=== PATIENT | male | born 1945 | race Caucasian/White ===

== ENCOUNTER → 2022-10-01 | Outpatient (REF) | payer MEDICARE, SELFPAY | LOC: OLS.ACW100 05:00 | PROVIDERS: Visit Provider Family Medicine | DX: T14.8XXA Other injury of unspecified body region, initial encounter (principal) | CPT/HCPCS: 87070; 87077; 87186; 87205 ==

== ENCOUNTER → 2022-10-18 | Outpatient (REF) | payer MEDICARE, MEDICAID, SELFPAY ==
[2022-10-18 09:35] LABS: Vitamin D,25 Hydroxy 46.4 ng/mL
== END ==
LOC: OLS.ACW100 05:00
PROVIDERS: Visit Provider Family Medicine
DX: C34.90 Malignant neoplasm of unspecified part of unspecified bronchus or lung (principal); E55.9 Vitamin D deficiency, unspecified; R13.10 Dysphagia, unspecified; R53.1 Weakness; Z79.899 Other long term (current) drug therapy
CPT/HCPCS: 36415; 82306; 84443

== ENCOUNTER → 2023-01-03 | Outpatient (REF) | payer MEDICARE, MEDICAID, SELFPAY ==
[2023-01-03 08:46] LABS: Hematocrit 34.3 % (40-54); Mean Corp Hgb Conc 32.1 g/dL (32-36); Mean Corpuscular Hgb 30.9 pg (27.0-32.0); Mean Corpuscular Volume 96.3 fL (80-94); Mean Platelet Vol. 10.8 fl (6.2-12.0); Platelet Count 324 K/mm3 (150-450); RBC Distribution Width CV 14.5 % (11.6-14.6); RBC Distribution Width SD 51.2 fl (35.1-43.9); Red Blood Count 3.56 M/mm3 (4.6-6.2); White Blood Count 7.5 K/mm3 (4.4-11.0)
[2023-01-03 09:07] LABS: ALB/GLOB Ratio 0.7 RATIO (0.9-2.4); AST(SGOT) 44 U/L (15-37); Alanine Aminotransfer ALT/SGPT 37 U/L (16-61); Albumin, Serum 2.6 g/dL (3.2-5.0); Alkaline Phosphatase 173 U/L (45-117); Anion Gap 6 (5-15); BUN 8 mg/dL (7-18); BUN/Creat Ratio 13.2 RATIO (10-20); Calcium,Total 8.6 mg/dL (8.5-10.1); Chloride 105 mmol/L (98-107); Creatinine, Serum 0.61 mg/dL (0.70-1.30); EST Glomerular Filtration Rate 137 mL/min (>60); Est Glom Filt Rate - Afr Amer 165 mL/min (>60); Ferritin 246 ng/mL (26-388); Globulin 3.7 g/dL (2.2-4.2); Glucose 177 mg/dL (74-106); Iron 46 ug/dL (65-175); Iron Binding Capacity,Total 202 ug/dL (250-450); PERCENT IRON SATURATION 22.8 % (15.0-55.0); Potassium 3.4 mmol/L (3.5-5.1); Protein, Total 6.3 g/dL (6.4-8.2); Prothrombin Time (Protime)PT. 13.5 SECONDS (11.7-14.9); Sodium Level 139 mmol/L (136-145)
[2023-01-04 15:08] LABS: ANTINUCLEAR ANTIBODIES DIRECT Negative (Negative); Anti-Mitochondrial AB <20.0 Units (0.0-20.0); Anti-Smooth Muscle ABS 11 Units (0-19); HEPATITIS B SURFACE AG Negative (Negative); Hep C Antibodies Non Reactive (Non Reactive); Hepatitis A IgM Antibody Negative (Negative); Hepatitis B Core AB IgM Negative (Negative)
== END ==
LOC: OLS.ACW100 04:00
PROVIDERS: Referring Provider Family Medicine; Visit Provider Family Medicine
DX: C34.90 Malignant neoplasm of unspecified part of unspecified bronchus or lung (principal); R13.10 Dysphagia, unspecified; R53.1 Weakness; Z79.899 Other long term (current) drug therapy; Z79.01 Long term (current) use of anticoagulants
CPT/HCPCS: 36415; 80053; 80074; 82728; 83516; 83540; 83550; 85027; 85610; 86038

== ENCOUNTER → 2023-01-05 | Outpatient (REF) | payer MEDICARE, MEDICAID, SELFPAY ==
[2023-01-13 11:08] LABS: Pancreatic Elastase, Fecal 440 (>200)
== END ==
LOC: OLS.ACW100 23:00
PROVIDERS: Visit Provider Family Medicine
DX: C34.90 Malignant neoplasm of unspecified part of unspecified bronchus or lung (principal); R13.10 Dysphagia, unspecified; R53.1 Weakness; R27.8 Other lack of coordination; Z79.899 Other long term (current) drug therapy; Z79.01 Long term (current) use of anticoagulants
CPT/HCPCS: 82653

== ENCOUNTER → 2023-01-13 | Outpatient (REF) | payer MEDICARE, MEDICAID, SELFPAY ==
[2023-01-13 09:32] LABS: Anion Gap 6 (5-15); BUN 6 mg/dL (7-18); BUN/Creat Ratio 12.2 RATIO (10-20); Calcium,Total 8.5 mg/dL (8.5-10.1); Chloride 106 mmol/L (98-107); Creatinine, Serum 0.49 mg/dL (0.70-1.30); EST Glomerular Filtration Rate 174 mL/min (>60); Est Glom Filt Rate - Afr Amer 211 mL/min (>60); Glucose 120 mg/dL (74-106); Potassium 3.7 mmol/L (3.5-5.1); Sodium Level 139 mmol/L (136-145)
== END ==
LOC: OLS.ACW100 04:00
PROVIDERS: Referring Provider Family Medicine; Visit Provider Family Medicine
DX: C34.90 Malignant neoplasm of unspecified part of unspecified bronchus or lung (principal); R13.10 Dysphagia, unspecified; R53.1 Weakness; R27.8 Other lack of coordination
CPT/HCPCS: 36415; 80048

== ENCOUNTER → 2023-01-17 | Outpatient (REF) | payer MEDICARE, MEDICAID, SELFPAY ==
[2023-01-17 10:04] LABS: Anion Gap 5 (5-15); BUN 6 mg/dL (7-18); Calcium,Total 8.9 mg/dL (8.5-10.1); Chloride 102 mmol/L (98-107); EST Glomerular Filtration Rate 139 mL/min (>60); Est Glom Filt Rate - Afr Amer 168 mL/min (>60); Glucose 108 mg/dL (74-106); Potassium 3.9 mmol/L (3.5-5.1); Sodium Level 136 mmol/L (136-145)
[2023-01-20 06:11] LABS: Uric Acid 4.1 mg/dL (3.5-7.2)
== END ==
LOC: OLS.ACW100 05:00
PROVIDERS: Visit Provider Family Medicine
DX: M10.9 Gout, unspecified (principal); C34.90 Malignant neoplasm of unspecified part of unspecified bronchus or lung; R13.10 Dysphagia, unspecified; M62.81 Muscle weakness (generalized); R53.1 Weakness; E87.6 Hypokalemia
CPT/HCPCS: 36415; 80048; 84550

== ENCOUNTER → 2023-03-11 | Outpatient (REF) | payer MEDICARE, MEDICAID, SELFPAY ==
[2023-03-11 10:33] LABS: T3 Total - Triiodothyronine 1.11 ng/mL (0.6-1.81)
[2023-03-11 10:55] LABS: T4 Total, Thyroxin 8.9 ug/dL (4.5-12.1); Thyroid Stim Hormone (TSH) 3.55 uIU/mL (0.358-3.74)
== END ==
LOC: OLS.ACW100 05:00
PROVIDERS: Visit Provider Family Medicine
DX: C34.90 Malignant neoplasm of unspecified part of unspecified bronchus or lung (principal); R13.10 Dysphagia, unspecified; M62.81 Muscle weakness (generalized); R27.9 Unspecified lack of coordination; R53.1 Weakness
CPT/HCPCS: 36415; 84436; 84443; 84480

== ENCOUNTER → 2023-05-10 | Outpatient (REF) | payer MEDICARE, SELFPAY ==
--- OUTSIDE RECORDS SUMMARY | 2023-05-10 04:14 | XMS RPT_ITS | CCD ---
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 Ted Sanchez Admitting Dr. Caesar Oconnor Attending UnavailKeely Holman Referring Unavailable Dr. Brian Jean Primary Care Zahra Razo Primary Care Provider Marck Giraldo MD Unavailable [phone] ERENDIRA AZUL Attending Unavailable ZAHRA SAENZ Referring Unavailable ZAHRA SAENZ Primary Care Unavailable MARCK GIRALDO Attending Unavailable ZAHRA SAENZ Primary Care Unavailable Allergies Allergy Classification Reported Allergen(s) Allergy Type Date of Onset Reaction(s) Facility (1 source) Colchicine; Translations: [Colchicine CAPS] Drug Allergy Rash -[facility] Work Phone: (2 sources) Colchicine Drug Allergy 10-25-2022 [facility] Medications Current Medications Medication Drug Class(es) Dates Sig (Normalized) Sig (Original) allopurinol 100 mg oral tablet (3 sources) Xanthine Oxidase Inhibitor Start: 10-13-2022 allopurinol (Zyloprim) 100 MG tablet Completed/Discontinued Medications Medication Drug Class(es) Dates Sig (Normalized) Sig (Original) ALPRAZolam 0.25 mg oral tablet (1 source) Benzodiazepine Start: 04-20-2019 take 1 tablet by mouth three times daily as needed ALPRAZolam 0.25 MG Oral Tablet Take one tablet three times a day as needed Quantity: 30 Refills: 0 Ordered: 20-Apr-2019 Edward Quintana MD Start : 20-Apr-2019 Active Problems Active Problems Problem Classification Problem Date Documented Da te Episodic/Chronic Alcohol-related disorders (3 sources) History of alcohol abuse; 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, in remission] Onset: 12-30-2022 12-30-2022 Chronic Anxiety disorders (1 source) Anxiety; Translations: [Anxiety state, unspecified] Chronic Deficiency and other anemia (1 source) Anemia; Translations: [Anemia, unspecified] Episodic Diabetes mellitus without complication (1 source) Hyperglycemia; Translations: [Impaired fasting glucose] Episodic Gout and other crystal arthropathies (7 sources) Primary gout; Translations: [Gouty arthropathy, unspecified] Resolved: 10-16-2016 Chronic Hyperplasia of prostate (5 sources) Prostate nodule; Translations: [Nodular prostate without urinary obstruction] Onset: 10-25-2022 10-25-2022 Chronic Malaise and fatigue (2 sources) Weakness; Translations: [Weakness] Onset: 08-29-2022 Episodic 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; Translations: [Osteoarthrosis, unspecified whether generalized or localized, hand] Chronic Other circulatory disease (1 source) Elevated blood-pressure reading without diagnosis of hypertension; Translations: [Elevated blood pressure reading without diagnosis of hypertension] Episodic Other connective tissue disease (1 source) Muscle wasting and atrophy, not elsewhere classified, right forearm; Translations: [Muscle wasting and atrophy, not elsewhere classified, right forearm] Episodic Other gastrointestinal disorders (1 source) Incontinence of feces; Translations: [Full incontinence of feces] 12-30-2022 Episodic Other non-traumatic joint disorders (2 sources) Pain in right knee; Translations: [Knee pain, right] Resolved: 10-16-2016 Episodic Thyroid disorders (1 source) Hypothyroidism; Translations: [Unspecified acquired hypothyroidism] Chronic Past or Other Problems Problem Classification Problem Date Documented Da te Episodic/Chronic E Codes: Natural/environment (1 source) Nonvenomous insect bite of multiple sites; Translations: [Insect bite, nonvenomous, of other, multiple, and unspecified sites, without mention of infection] Resolved: 10-16-2016 Episodic Essential hypertension (1 source) Benign essential hypertension; Translations: [Benign essential hypertension] Resolved: 01-22-2017 Chronic Open wounds of extremities (2 sources) Open wound of finger with complication; Translations: [Open wound of finger(s), complicated] Resolved: 09-25-2014 Episodic Other connective tissue disease (2 sources) H/O: gout; Translations: [Personal history of arthritis] Resolved: 10-16-2016 Episodic Other diseases of kidney and ureters (2 sources) Other obstructive and reflux uropathy; Translations: [Other obstructive and reflux uropathy] Onset: 10-25-2022 Episodic Other gastrointestinal disorders (2 sources) Full incontinence of feces; Translations: [Full incontinence of feces] Onset: 12-30-2022 Episodic Other non-traumatic joint disorders (2 sources) Effusion of joint of left knee; Translations: [Effusion of joint, lower leg] Resolved: 10-16-2016 Episodic Other non-traumatic joint disorders (1 source) Anterior knee pain; Translations: [Pain in joint, lower leg] Resolved: 10-16-2016 Episodic Other non-traumatic joint disorders (1 source) Swelling of knee joint; Translations: [Effusion of joint, lower leg] Resolved: 10-16-2016 Episodic Other screening for suspected conditions (not mental disorders or infectious disease) (11 sources) Raised prostate specific antigen; Translations: [Elevated prostate specific antigen [PSA]] Onset: 10-25-2022 10-25-2022 Episodic Other skin disorders (1 source) Maculopapular eruption; Translations: [Rash and other nonspecific skin eruption] Resolved: 10-16-2016 Episodic Other skin disorders (1 source) Eruption; Translations: [Rash and other nonspecific skin eruption] Resolved: 10-16-2016 Episodic Results Test Name Value Interpretation Reference Range Facil ity Vital Signs Date Time Vital Sign Value Performing Clinician Facility 12-30-2022 07:56-0400 Body height 182.9 cm [facility] [employer] Work Phone: [facility] 12-30-2022 07:56-0400 Body mass index (BMI) [Ratio] 29.02 kg/m2 [facility] [place] Work Phone: [facility] 12-30-2022 07:56-0400 Body temperature 97.9 [degF] [facility] [employer] Work Phone: [facility] 12-30-2022 07:56-0400 Body weight 97.07 kg [facility] [employer] TENDER - [employer]PARTMENTAL BU[employer]ER Work Phone: [facility] 12-30-2022 07:56-0400 Diastolic blood pressure 72 mm[Hg] [facility] [employer] - [employer]PARTMENTAL BU[employer]ER Work Phone: [facility] 12-30-2022 07:56-0400 Heart rate 68 /min [facility] [employer] TEND[employer] - [employer]PARTMENTAL BU[employer]ER Work Phone: [facility] 12-30-2022 07:56-0400 Systolic blood pressure 122 mm[Hg] [facility] [employer] TENDER - DEPARTMENTAL BU[employer]ER Work Phone: [facility] [employer] 08-29-2022 03:23-0400 Body temperature 37.0 {degrees_C} Brian Jean Work Phone: [facility] Work Phone: Encounters Encounter Date Encounter Type Care Provider Facility Start: 12-30-2022 End: 12-30-2022 ambulatory [facility] Start: 12-30-2022 End: 12-30-2022 Office outpatient new 45 minutes [facility] [employer] TENDER - [employer]PARTMENTAL BU[employer]ER Work Phone: [facility] G[facility] Procedures Date Procedure Procedure Detail Performing Clinician Start: 08-31-2022 Echocardiography Christos Jean Work Phone: NEGATED: Highlighted row has not occurred! Denies Prior Surgical Procedure Not Done Brian Jean Work Phone: Plan of Treatment Date Care Activity Detail Author Start: 05-16-2023 End: 05-16-2023 Patient encounter procedure 05/16/2023 9:30 AM EST Office Visit [facility] [address] [place] [address] Marck Giraldo MD [address] [place] [address] [facility] Start: 04-26-2023 End: 10-26-2023 PSA Total PSA Total Lab Routine Elevated PSA Expected: 04/26/2023 (Approximate), Expires: 10/26/2023 [facility] Work Phone: Payers Date Payer Category Payer Medicare [facility] MEDICARE [facility] MEDICARE ADVANTAGE [id number] 2022-Present [address] [place] [address] Medicare HMO [id number] 2022 Private Health Insurance [id number] 1945 Unknown [id number] Unknown Social History Date Type Detail Facility Start: 10-25-2022 Self-employed [facility] Work Phone: Start: 10-25-2022 Tobacco smoking stat [facility] Never smoked tobacco [facility] Start: 10-25-2022 Tobacco use and exposure Smokeless tobacco non-user [facility] Start: 10-25-2022 End: 12-30-2022 Alcohol intake Ex-drinker (finding) [facility] Start: 1945 Sex Assigned At Not on file [facility] Start: 10-25-2022 Gender identity Not on file [facility] Start: 10-15-2022 End: 12-30-2022 Exposure to SARS-CoV-2 (event) Not sure [facility] History of Present illness Narrative 12-30-2022 FRANCHESCA Palmer CNP - 12/30/2022 8:00 AM EDT Note Date & Type Note Facility 12-30-2022 History of Presen t illness Narrative Images from the original note were not included. [facility] [address] [place] [address] Dept: [phone] Dept Loc: [phone] Visit type: New Reason for Visit: New Patient and Fatty liver Assessment and Plan Problem List Items Addressed This Visit None Visit Diagnoses Elevated LFTs - Primary Relevant Orders MR abdomen w and wo contrast Creatinine, Serum CBC Protime-INR Comprehensive metabolic panel Anti-smooth muscle antibody titer Antimitochondrial antibody BRANDON Ferritin Iron and TIBC Liver-Kidney Microsome 1 Ab Hepatitis panel, acute Abnormal CT of liver Relevant Orders MR abdomen w and wo contrast Creatinine, Serum CBC History of alcohol abuse Relevant Orders Pancreatic elastase, fecal Incontinence of feces, unspecified fecal incontinence type Relevant Orders Pancreatic elastase, fecal --suspect elevated LFTs and steatohepatitis secondary to EtOH abuse --complete additional labs as ordered to rule out underlying liver disease, viral hepatitis --schedule MRI liver for further evaluation of nonspecific lesions seen on inpatient CT at outside hospital --EGD 08/2022-no esophageal or gastric varices --continue abstinence from alcohol --check fecal elastase, discussed with patient and brother, if low, will send Rx for PERT --discussed colonoscopy for further evaluation of fecal incontinence-patient declined --EDU printed Advised patient to call office with new or worsening symptoms, questions, or concerns. Patient verbalized understanding and agreement of plan. Follow up in about 3 months (around 04/01/2023). Subjective HPI Patient is referred by Dr. Saenz, re: fatty liver. Patient resides in [facility]-has been living there since August 2022 following hospital admission at (08/29/2022-09/04/2022) related to weakness/deconditioning. Patient is accompanied to visit by his brother, Diego, who contributes to HPI. Patient's brother states he has not seen doctor in years. Was drinking heavily prior to admission, ~ drinking a fifth of vodka per day. Patient denies prior hx of liver disease. Denies abdominal pain, nausea, and vomiting. Patient is not jaundice. Most recent LFTs-Labs 09/13/2022-AST 193, Alk P 328, ALT 92, T. Bili 1.40 . 08/28/2022 CT Chest/Abdomen/Pelvis also completed- steatotic liver, concerns for acute steatohepatitis. Two non-specific lesions, one 10 mm and one 18 mm-MRI recommended. EGD completed during admission-no varices. Patient notes fecal incontinence-ongoing since hospitalization in August 2022. Bowels are moving daily to every couple days. Stool consistency is like peanut butter . Denies hematochezia and melena. States he does not feel the urge to have BM. No prior colonoscopy. Patient's brother notes that prior to admission patient was holding BM's for extended period of time due to mobility issues. Patient had weight-loss following admission-previously was 248#. Review of Systems Constitutional: Positive for unexpected weight change. Negative for appetite change. HENT: Negative for trouble swallowing and voice change. Respiratory: Negative for shortness of breath. Cardiovascular: Negative for chest pain. Gastrointestinal: Negative for abdominal distention, abdominal pain, anal bleeding, blood in stool, constipation, diarrhea, nausea, rectal pain and vomiting. Fecal incontinence Genitourinary: Negative for difficulty urinating. Skin: Negative for color change. Neurological: Negative for weakness. Allergies Allergen Reactions Colchicine Rash Outpatient Medications Prior to Visit Medication Sig Dispense Refill allopurinol (Zyloprim) 100 MG tablet atorvastatin (Lipitor) 40 MG tablet cholecalciferol (Vitamin D-3) 25 MCG (1000 UT) capsule Take 1,000 Units by mouth daily. cimetidine (Tagamet) 400 MG tablet Take 400 mg by mouth 2 times daily. folic acid (Folvite) 1 MG tablet furosemide (Lasix) 20 MG tablet gabapentin (Neurontin) 300 MG capsule levothyroxine (Tirosint) 112 MCG capsule Take by mouth every morning (before breakfast). Multiple Vitamins-Iron (Tab-A-Serena/Iron) tablet Take by mouth. pantoprazole (ProtoNix) 40 MG EC tablet polyethylene glycol, PEG, 3350 (Miralax) 17 g packet Take by mouth. potassium chloride CR (Klor-Con M20) 20 MEQ ER tablet PSYLLIUM HUSK PO Take by mouth. tamsulosin (Flomax) 0.4 MG 24 hr capsule No facility-administered medications prior to visit. There are no problems to display for this patient. Social History Tobacco Use Smoking status: Never Smokeless tobacco: Never Substance Use Topics Alcohol use: Not Currently Family History Problem Relation Name Age of Onset Colon cancer Neg Hx Objective BP 122/72 Pulse 68 Temp 36.6 C (97.9 F) Ht 6' (1.829 m) Wt 214 lb (97.1 kg) BMI 29.02 kg/m Physical Exam Constitutional: Appearance: Normal appearance. HENT: Head: Normocephalic. Ears: Comments: TUSCARORA Eyes: General: No scleral icterus. Cardiovascular: Rate and Rhythm: Normal rate and regular rhythm. Pulmonary: Effort: Pulmonary effort is normal. Breath sounds: Normal breath sounds. Abdominal: General: Bowel sounds are normal. There is no distension. Palpations: Abdomen is soft. There is no mass. Tenderness: There is no abdominal tenderness (patient denies ttp). There is no guarding or rebound. Hernia: No hernia is present. Musculoskeletal: Right lower leg: Edema present. Comments: Patient examined in wheelchair Skin: General: Skin is warm and dry. Coloration: Skin is not jaundiced. Neurological: General: No focal deficit present. Mental Status: He is alert and oriented to person, place, and time. Psychiatric: Mood and Affect: Mood normal. Behavior: Behavior normal. Data Reviewed and Summarized Labs: Imaging/Testin09/02/2022 EGD (inpatient at ) Impression: - Esophageal plaques were found, suspicious for candidiasis. Cells for cytology obtained. - Gastritis. Biopsied. - Normal duodenal bulb and second portion of the duodenum. Recommendation: - Await pathology results. - PPI therapy twice daily for 4 weeks. - If cytology + for mary jane on esophageal brushings then will need treatment with fluconazole. FINAL DIAGNOSIS A. GASTRIC ANTRUM AND BODY, BIOPSIES: --GASTRIC MUCOSA WITH NO SIGNIFICANT HISTOPATHOLOGICAL ABNORMALITIES. --HELICOBACTER IS NOT IDENTIFIED. Date of Procedure: 09/02/2022 Date Reported: 09/06/2022 Date Received: 09/02/2022 Date of / Sex 1945 (Age: 77) / M Race: WHITE Submitting Physician: LORA PRINCE MD Other External # FINAL CYTOLOGICAL INTERPRETATION A. ESOPHAGEAL BRUSH: NO MALIGNANT CELLS IDENTIFIED Unremarkable squamous cells and rare columnar cells No fungal organisms identified 08/28/2022 CT Chest abdomen pelvis w IV contrast Impression Respiratory motion artifact slightly limits evaluation of lung parenchyma. There is slightly branching subpleural irregular nodular density laterally in the right upper lobe, measuring up to 2.0 by 0.7 cm in transaxial diameters, 14 mm in CC diameter, suspicious for lung cancer (series 204, images 117-129; series 202, images 73-80). Pneumonia or focus of nodular scarring are also possible but thought somewhat less likely, given the morphology. Further evaluation with PET-CT is recommended. There are relatively symmetric ground-glass, reticular and arcade-like densities posteriorly in the lower lobes, probably relating to atelectasis although pneumonia is also possible in the appropriate clinical context. There is subpleural fine reticulonodular opacity and a calcified granuloma anterolaterally in the left upper lobe,, most compatible with scarring. Mild emphysema. There is a background of mild interstitial prominence with smooth interlobular septal thickening that could relate to chronic changes or acute pulmonary interstitial edema/CHF. No focal consolidation, pleural effusion, or pneumothorax. Fusiform aneurysmal dilation of the ascending aorta and proximal arch measuring up to 5.0 cm. Mild dilation of the distal arch which measures up to 3.8 cm. Mild aortic tortuosity and mild partially calcified atherosclerosis of thoracic aorta and branch vessels without significant luminal narrowing or other abnormal dilation. Main pulmonary artery is dilated, suggesting pulmonary arterial hypertension. No pulmonary embolus seen to the proximal segmental level, noting that technique is not optimized for PE detection. Mildly patulous esophagus with mild wall thickening and fluid within its lumen, overall suggesting reflux esophagitis. Correlate clinically with GERD. Small sliding hiatal hernia containing a portion of gastric fundus. The proximal colon is decompressed with suspected disproportionate mural thickening and mucosal hyperemia with submucosal edema and adjacent fat stranding also extending about the retro conal fascia, suspicious for infectious/inflammatory colitis. Perivesical fat stranding is suspicious for acute cystitis. Suggest clinical correlation with the need for urinalysis to exclude infection. There is nonspecific retroperitoneal edema seen posterior to small-bowel loops, intercalating about common iliac vessels and right external iliac vessels and extending into the presacral region. There are no retroperitoneal enlarged lymph nodes in no increased density to suggest hematoma, and no mass lesions; there is no definite adjacent osseous erosion or fracture, and the adjacent vessels appear patent. This could possibly represent reactive edema secondary to liver, colonic, or bladder inflammation that may have redistributed. A primary retroperitoneal the infectious/inflammatory process is theoretically possible and cannot be entirely excluded. Enlarged and diffusely hypoattenuating, with regions suggesting relative sparing in an otherwise steatotic liver predominating in the periphery. There is suspected compression and mild narrowing of the hepatic veins suggesting edema related to acute hepatitis. Correlate clinically and with laboratory markers for acute steatohepatitis. Nonspecific 10-mm relatively hyperenhancing lesion in the hepatic dome (series 201, images 66-68). Nonspecific rounded relatively hyperenhancing lesion centered in segment 8 along the right hepatic vein measuring up to 18 mm in transaxial diameter (series 201, images 76-79). Further evaluation with nonemergent outpatient MRI suggested. No other definite focal liver lesion.PURPLE ALERT: An alert notification was sent to the emergency department regarding incidental or unexpected imaging finding(s) in the radiology examination. Suspected gastric mucosal hyperemia, suspicious for gastritis. Cholelithiasis. No evidence of acute cholecystitis. No biliary ductal dilation. Prostatomegaly. Grade 1 anterolisthesis and severe discogenic degeneration at L5-S1 secondary to chronic bilateral L5 spondylolysis. Additional findings as discussed above. GERTRUDIS Palmer 9:00 AM 12/30/22 documented in this encounter [facility] Instructions 12-30-2022 Patient InstructionsAttachments Note Date & Type Note Facility 12-30-2022 Instructions FRANCHESCA Palmer CNP - 12/30/2022 8:00 AM EDT --Please call office with any questions or concerns! [phone] --Obtain additional lab work for further evaluation of the symptoms. --Schedule MRI liver --Please see handout provided regarding additional recommendations for the symptoms including when to seek emergency care or further treatment. --Follow-up with PCP, and in GI clinic in about 3 months following the above evaluation and recommendations. The following attachments cannot be sent through Care Everywhere.Fecal Incontinence (Kazakh)documented in this encounter [facility] History of Present illness Narrative 10-25-2022 Marck Giraldo MD - 10/25/2022 11:00 AM EDT Note Date & Type Note Facility 10-25-2022 History of Presen t illness Narrative Images from the original note were not included. Marck Giraldo MD 10/25/2022 at 11:38 AM UROLOGY INITIAL OFFICE VISIT PATIENT NAME: Christos Snow DATE OF : 1945 TODAY'S DATE: 10/25/2022 Chief Complaint: Chief Complaint Patient presents with New Patient Elevated PSA PSA 5.57 HPI Mr. Snow is a 77 y.o. male who presents with elevated psa. Was in [facility] then to rehab due to deconditioning. In wheelchair, still at rehab at [facility] in [place]. He normally lives in [place]. Has psa 5.57 Psa in 2019 9.36 Had condom cath now voids in urinal Prior to hospital void well, no gu surgey or history No stones, uti or heme Now fecal inc Voids in urinal, no pain or heme Only infrequent void at night Review of Systems Constitutional: Negative for unexpected weight change. HENT: Negative for ear pain and trouble swallowing. Eyes: Negative for pain and discharge. Respiratory: Negative for shortness of breath and wheezing. Cardiovascular: Negative for chest pain and palpitations. Gastrointestinal: Negative for anal bleeding and rectal pain. Endocrine: Negative for cold intolerance and heat intolerance. Genitourinary: See HPI Skin: Negative for rash. Neurological: Negative for tremors and weakness. Psychiatric/Behavioral: Negative for suicidal ideas. The patient is not hyperactive. Past Medical History: No past medical history on file. Past Surgical History: No past surgical history on file. Current Medications: Prior to Admission medications Medication Sig Start Date End Date Taking? Authorizing Provider allopurinol (Zyloprim) 100 MG tablet 10/13/22 Yes Historical Provider, atorvastatin (Lipitor) 40 MG tablet 10/01/22 Yes Historical Provider, folic acid (Folvite) 1 MG tablet 10/01/22 Yes Historical Provider, furosemide (Lasix) 20 MG tablet 10/01/22 Yes Historical Provider, gabapentin (Neurontin) 300 MG capsule 10/01/22 Yes Historical Provider, pantoprazole (ProtoNix) 40 MG EC tablet 10/01/22 Yes Historical Provider, potassium chloride CR (Klor-Con M20) 20 MEQ ER tablet 10/09/22 Yes Historical Provider, tamsulosin (Flomax) 0.4 MG 24 hr capsule 10/11/22 Yes Historical Provider, Allergies: Colchicine Social History: Social History Socioeconomic History Marital status: Single Spouse name: Not on file Number of children: Not on file Years of education: Not on file Highest education level: Not on file Occupational History Not on file Tobacco Use Smoking status: Never Smokeless tobacco: Never Substance and Sexual Activity Alcohol use: Not Currently Drug use: Never Sexual activity: Not on file Other Topics Concern Not on file Social History Narrative Not on file Social Determinants of Health Financial Resource Strain: Not on file Food Insecurity: Not on file Transportation Needs: Not on file Physical Activity: Not on file Stress: Not on file Social Connections: Not on file Intimate Partner Violence: Not on file Housing Stability: Not on file Family History: No family history on file. VITALS: There were no vitals taken for this visit. Physical Exam Constitutional: Patient is oriented to person, place, and time. Patient appears well-developed and well-nourished. No distress. HENT: Head: Normocephalic and atraumatic. Eyes: Pupils are equal, round, and reactive to light. EOM are normal. No scleral icterus. Neck: Normal range of motion. Neck supple. No JVD present. Cardiovascular: Normal rate and regular rhythm. Pulmonary/Chest: Effort normal. No respiratory distress. Abdominal: Soft. Exhibits no distension and no mass. There is no rebound. Genitourinary: No flank mass or tenderness Bladder non tender, non distended Musculoskeletal: Patient exhibits no edema or deformity. Neurological: Is alert and oriented to person, place, and time. Skin: Skin is warm and dry. Psychiatric: Has a normal mood and affect. Judgment normal. DATA: LABS: No results found for: PSAFREE, PSAFREEPCT No results for input(s): PSAFREE, PSAFREEPCT in the last 72 hours. No results found for: TESTOSTERONE No results found for: WBC, HGB, HCT, MCV, PLT No results found for: GLUCOSE, CALCIUM, NA, K, CO2, CL, BUN, CREATININE No components found for: LABURIN @LASTPROCPOC@ Radiology Review: Impression: Christos was seen today for new patient. Diagnoses and all orders for this visit: Elevated PSA (Primary) - PSA Total; Future - PSA Total BPH with urinary obstruction Christos Snow is a 77 y.o. male with Elevated psa Bph Fecal incontinence Plan: Has hx elevated psa it was 9 in 2019 but now 5.57 Observe bph for now, void well Repeat psa in 6 mo Follow up in 6 mo Follow up in about 6 months (around 04/26/2023) for psa prior. Marck Giraldo MD 10/25/22 11:38 AM documented in this encounter [facility] Discharge summary note 09-04-2022 Note Date & Type Note Facility 09-04-2022 Note Send Summary: Discharge Summary Providers: Provider RoleProvider Name Yaw Andrews, Brian Da Silva Note Recipients: Brian Jean MD Discharge: Summary: Admission Date: .28-Aug-2022 17:04:00 Discharge Date: 04-Sep-2022 Attending Physician at Discharge: Caesar Sal Admission Reason: Weakness(1) Final Discharge Diagnoses: Hyponatremia Nutrition Diagnosis: Agree with dietitians assessment and diagnoses as stated. A new diagnosis of Moderate malnutrition related to chronic disease or condition related to chronic illness as evidence by poor intake of < 75% of estimated energy requirement in > 1 month, mild subcutaneous fat loss, mild muscle wasting and mild fluid accumulation present. Procedures: null Sep 02, 2022 Condition at Discharge: Satisfactory Disposition at Discharge[facility] Vital Signs: T PRBPMAPSpO2 [id number]/6695% Date/Time09/04 8: 8: 8: 8: 8:21 Range(36.2C - 37.1C ) (61 - 89 ) (17 - 18 ) (108 - 150 )/ (57 - 84 ) (92% - 97% ) Highest temp of 37.1 C was recorded at 09/04 3:27 Date: Weight/Scale Type:Height: 02-Sep-2022 13:3670 kg 182.8 cm Physical Exam: Constitutional: no acute distress Respiratory/Thorax: fairly CTAB Cardiovascular: regular rhythm, no murmurs Gastrointestinal: Nontender, non distended. Extremities: trace edema in legs, b/l xerosis. Neurological: alert and oriented, moving all extremities Psychological: normal affect Skin: no rashes or lesions Hospital Course: 77 yoM with anorexia, dysphagia, malaise. Findings include subpleural pulmonary mass (tumor), possible pHTN, esophagitis, possible colitis, steatosis and possible hepatitis, hyponatremia. Plan for EGD. Liver dysfunction seemingly related to alcohol use. CIWA; he received a few doses of phenbarb; he denies significant withdrawal symptoms. He has requested a DNR. Fluid restrict and diurese for hyponatremia and leg edema. Echo ordered. Lung mass is not urgent at this point; can get outpatient PET scan/biopsy. Hyponatremia, hypervolemic Alcoholic liver disease Malnutrition Cytopenia Lung nodule Esophagitis, dysphagia Hypothyroidism DM 08/30: Sodium worse at 119 today, so EGD cancelled. Started synthroid and atorvastatin. 08/31: No EGD today due to sodium. Continue daily IV lasix. One dose tolvaptan. 09/01: HypoNa... lower today, getting tolvaptan today... cont iv lasix, tolvaptan, f/u renal recs. HypoK... replace and monitor No s/s of etoh withdrawals. Dysphagia, Esophagitis... EGD on hold for hypoNa Lung mass... outpt bx Echo... Ef nl. AA with 4.7cm... will need outpt vascular/cardio f/u Home regimen for chronic conditions Dvt px with lovenox Dispo likely new snf. 09/02: Na better... hold tolvaptan, f/u renal, cont diuresis. HypoK/hypoPhos... replace, monitor Hopefully EGD today... f/u GI Pt/ot Podiatry consult for b/l skin changes likely related to chronic venous stasis. No DTs... will dc ciwa DM well controlled 09/03: HypoNa... stable... discussed with renal who has cleared for dc with lasix 20mg daily, 1.2L fluid restriction, and repeat labs to be faxed to his office. S/p EGD... f/u esophageal brushings, cont PPI BID 4 weeks, f/u outpt GI AA 4.7... f/u CTsx consult, will need monitoring. Lung nodule.. outpt monitoring, f/u with pulm requested. B/l LE xerosis... appreciate podiatry... outpt f/u . Pt/ot Primary focus now is on mobility. 09/04: HypoNa overall stable, clinically appears and feels well.. will dc with lasix 20, PPI BID, and f/u with Renal, GI, Pulmonary, Podiatry, and CTsx. Dispo to snf. Pt is clinically and hemodynamically stable, tolerating PO intake and room air. Instructed to f/u with pcp within 5 days Pt understands and agrees with the dc plan. More than 30 min spent on dc. Immunizations: Immunizations: 20-May-2014 Td - Tetanus-Diptheria: Immunizations, 20-May-2014 Discharge Information: and Continuing Care: Lab Results - Pending: Surgical Pathology Drawn at 02-Sep-2022 14:40:00 Cytology-Non SENIOR QUALITY MANAGER Drawn at 02-Sep-2022 00:00:00 Venous Full Panel Drawn at 28-Aug-2022 19:12:00 Radiology Results - Pending: None Discharge Instructions: Activity: activity as tolerated. May shower.. Nutrition/Diet: low sodium Fluid Restriction: 1.5L Labs: Lab Test(s): CBC, Comprehensive Metabolic Panel Date To Be Drawn: 09/06/2022 Fax Results To: Dr Maynard, #[phone] Rehab Services: Occupational Therapy Orders: [facility] Physical Therapy Orders: [facility] ([facility]) Care Recommendation: I recommend that INPATIENT care is required at:: Skilled Follow Up Appointments: Follow-Up Appointment 01: Physician/Dept/Service: Dr. Malou Bowen - Pulmonary Scheduled Date/Time: (more content not included)... [facility] [place] physical note 08-29-2022 Note Date & Type Note Facility 08-29-2022 Note History of Present I llness: HPI: CHRISTOS SNOW is a 77 year old Male with a past medical history of hypertension, hyperlipidemia, anemia, alcohol use disorder, BPH, anxiety, hypothyroidism, gouty arthritis who presented to [facility] complaining of worsening dysphagia to solid foods and malaise. He is able to swallow liquids and has had difficulty swallowing solids in the past 5 days getting worse to the point where he does not feel like eating. He denies any nausea but does have generalized weakness. He is having difficulty ambulating due to leg weakness. No focal weaknesses noted Diagnostic testing: White blood cell count 9.5 hemoglobin 11.6 hematocrit 32.3 platelet count 141 elevated neutrophil count. Nasal swab for COVID is not detected. Glucose 122 sodium is 123 potassium 3.5 bicarbonate 29 BUN 10 creatinine 0.59 his alkaline phosphatase is 174 AST 46 ALT 127 total bilirubin 4.9 troponin 10 alcohol level less than 10 brain natruretic peptide 111 on venous blood gases his venous lactate was elevated at 3.2. Past medical history Hypertension Hyperlipidemia Anemia Alcohol use disorder BPH Anxiety Hypothyroidism Osteoarthritis Gouty arthritis Pseudogout of the wrist Past surgical history Denies Family history Son has diabetes mellitus type 2 and congestive heart failure Social history Daily vodka Never smoked No illicit drugs Comorbidities: Comorbidites: Comorbid Conditionshypertension Family History: Family History: reviewed and not pertinent to presenting problem Family History: Son has diabetes mellitus type 2 and CHF Social History: Social History: Smoking Statusnever smoker (1) Alcohol Usedaily Drug Usedenies Drug 2 Usedenies (1) Allergies: No Known Allergies: Medications Prior to Admission: The patient does not take any medications at home. Review of Systems: Constitutional: POSITIVE: Malaise; NEGATIVE: Fever, Chills, Anorexia, Weight Loss Eyes: NEGATIVE: Blurry Vision, Drainage, Diploplia, Redness, Vision Loss/ Change ENMT: NEGATIVE: Nasal Discharge, Nasal Congestion, Ear Pain, Mouth Pain, Throat Pain Respiratory: NEGATIVE: Dry Cough, Productive Cough, Hemoptysis, Wheezing, Shortness of Breath Cardiac: NEGATIVE: Chest Pain, Dyspnea on Exertion, Orthopnea, Palpitations, Syncope Gastrointestinal: NEGATIVE: Nausea, Vomiting, Diarrhea, Constipation, Abdominal Pain; COMMENTS: Dysphagia to solid food Genitourinary: NEGATIVE: Discharge, Dysuria, Flank Pain, Frequency, Hematuria Musculoskeletal: NEGATIVE: Decreased ROM, Pain, Swelling, Stiffness, Weakness Neurological: NEGATIVE: Dizziness, Confusion, Headache, Seizures, Syncope Psychiatric: NEGATIVE: Mood Changes, Anxiety, Hallucinations, Sleep Changes, Suicidal Ideas Skin: NEGATIVE: Mass, Pain, Pruritus, Rash, Ulcer Endocrine: NEGATIVE: Heat Intolerance, Cold Intolerance, Sweat, Polyuria, Thirst Hematologic/Lymph: NEGATIVE: Anemia, Bruising, Easy Bleeding, Night Sweats, Petechiae Allergic/Immunologic: NEGATIVE: Anaphylaxis, Itchy/ Teary Eyes, Itching, Sneezing, Swelling Breast: NEGATIVE: Pain, Mass, Discharge, Nipple Itching, Gynecomastia All Other Systems: All other systems reviewed and are negative Objective: Objective Information: T PRBPMAPSpO2 [id number]/6697% Date/Time08/28 23: 23: 23: 23:094/ 23:09 Range(36.2C - 36.2C ) (70 - 78 ) (15 - 16 ) (116 - 138 )/ (66 - 75 ) (96% - 97% ) Physical Exam by System: Constitutional: Awake and alert. Non toxic Eyes: PERRL, EOMI, clear sclera ENMT: mucous membranes moist, no apparent injury, no lesions seen Head/Neck: Neck supple, no apparent injury, thyroid without mass or tenderness, No JVD, trachea midline, no bruits Respiratory/Thorax: Lungs are Clear to auscultation Cardiovascular: Regular, rate and rhythm, 2+ equal pulses of the extremities, normal S 1and S 2 Gastrointestinal: Nondistended, soft, non-tender, no rebound tenderness or guarding, no masses palpable, no organomegaly, +BS, no bruits Genitourinary: No Discharge, vesicles or other abnormalities Musculoskeletal: Moves all 4 extremities. Extremities: No edema. No calf tenderness. Neurological: Awake and alert. No focal neurological deficits Breast: No masses, tenderness, no discharge or discoloration Lymphatic: No significant lymphadenopathy Psychological: Appropriate mood and behavior Skin: Dry scaly skin of the lower extremities bilaterally Medications: Medications: CENTRAL NERVOUS SYSTEM AGENTS: 1. oxyCODONE Immediate Release: 5 mg Oral Every 4 Hours PRN 2. Ondansetron Injectable: 4 mg IntraVenous Push Every 4 Hours PRN 3. LORazepam Injectable: 0.5 mg IntraVenous Push Every 2 Hours PRN 4. LORazepam Injectable: 1 mg IntraVenous Push Every 2 Hours PRN 5. LORazepam Injectable: 2 mg IntraVenous Push Every 2 Hours PRN (more content not included)... [facility] [place] Evaluation note Note Date & Type Note Facility documented in this encounter [facility] Evaluation note Note Date & Type Note Facility documented in this encounter [facility] Summary Purpose Family History No Family History Records FoundUnknown Family Member Name Dates Details Family history of heart fail ure: Son(V17.49, Z82.49) Status:Active Family history of diabetes m ellitus: Son(V18.0, Z83.3) Status:Active Family history of arthritis: Father(V17.7, Z82.61) Status:Active : Mother, Father Status:Active Advance Directives No Advanced Directives Records FoundNo Advanced Directives Records FoundNo Advanced Directives Records FoundNo Advanced Directives Records Found Reason for Referral Specialty Diagnoses / Procedures Referred By Contac t Referred To Contact Radiology Diagnoses Elevated LFTs Abnormal CT of liver Procedures MR abdomen w and wo contrast JoseclaireErendira APRN - DEPARTMENTAL BUYER [address] [address] Referral ID Status Reason Start Date Expiration Date V isits Requested Visits Authorized [id number] Pending Review 12/30/2022 06/28/2023 1 1 Additional Source Comments (unrecognized sect ion and content) No Status Records FoundNo Status Records FoundNo Status Records FoundNo Status Records Found INFORMATION SOURCE (unrecogn ized section and content) DATE CREATED AUTHOR AUTHOR'S ORGANIZ ATION 09/07/2022 [facility] DATE CREATED AUTHOR AUTHOR'S ORGANIZ ATION 09/08/2022 [facility] [place] DATE CREATED AUTHOR AUTHOR'S ORGANIZ ATION 05/05/2023 [facility] Reason for Visit (unrecogniz ed section and content) Reason Comments New Patient Fatty liver Specialty Diagnoses / Procedures Referred By Contac t Referred To Contact Gastroenterology Diagnoses GI consult for fatty liver Procedures Consult Zahra Saenz [address] [place] [address] [phone] [place] [address] [facility] [address] [id number] Referral ID Status Reason Start Date Expiration Date V isits Requested Visits Authorized [id number] Pending Review 10/01/2022 10/01/2023 1 1 Care Teams (unrecognized sec tion and content) Dredge Pump Operator Relationship Specialty Start Date End Date Zahra Saenz [address] [place] [address] [address] [place] [address] PCP - General Family Medicine 09/22/22 Marck Giraldo MD [address] [facility] [address] [place] [address] Surgeon Urology 10/25/22 FOR RECORDS PERTAINING TO PATIENTS WHO ARE OR HAVE BEEN ENROLLED IN A CHEMICAL DEPENDENCY/SUBSTANCEABUSE PROGRAM, SOME INFORMATION MAY BE OMITTED. This clinical summary was aggregated from multiple sources. Caution should be exercised in using it in the provision of clinical care. This summary normalizes information from multiple sources, and as a consequence, information in this document may materially change the coding, format and clinical context of patient data. In addition, data may be omitted in some cases. CLINICAL DECISIONS SHOULD BE BASED ON THE PRIMARY CLINICAL RECORDS. [facility] [employer] [facility] provides no warranty or guarantee of the accuracy or completeness of information in this document.
== END ==
LOC: OLS.ACW100 05:00
PROVIDERS: Visit Provider Family Medicine
DX: Z12.5 Encounter for screening for malignant neoplasm of prostate (principal)
CPT/HCPCS: 36415; 84153; G0103

== ENCOUNTER → 2023-06-09 | Outpatient (REF) | payer MEDICARE, MEDICAID, SELFPAY ==
[2023-06-09 10:45] LABS: T3 Total - Triiodothyronine 1.05 ng/mL (0.6-1.81)
[2023-06-09 11:01] LABS: T4 Total, Thyroxin 8.2 ug/dL (4.5-12.1); Thyroid Stim Hormone (TSH) 3.39 uIU/mL (0.358-3.74)
--- OUTSIDE RECORDS SUMMARY | 2023-06-09 11:58 | XMS RPT_ITS | CCD ---
Author Name Unknown Address [address] [place] [address] Organization [facility] Care Team Providers Care Hereditary Cancer Program Coordinator Name Role Phone Brian Jean Unavailable Unavailable Unavailable Dr. Ted Sanchez Admitting Dr. Caesar Oconnor Attending UnavailKeely Holman Referring Unavailable Dr. Brian Jean Primary Care Zahra Razo Primary Care Provider [phone] Marck Giraldo MD Unavailable ERENDIRA AZUL Attending Unavailable ZAHRA SAENZ Referring Unavailable ZAHRA SAENZ Primary Care Unavailable MARCK GIRALDO Attending Unavailable ZAHRA SAENZ Primary Care Unavailable Allergies Allergy Classification Reported Allergen(s) Allergy Type Date of Onset Reaction(s) Facility (1 source) [facility]; Translations: [[facility] CAPS] Drug Allergy Rash -[facility] Work Phone: (2 sources) [facility] 10-25-2022 [facility] Medications Current Medications Medication Drug Class(es) Dates [...] Facility 12-30-2022 07:56-0400 Body height 182.9 cm [facility] E [employer] Work Phone: [facility] 12-30-2022 07:56-0400 Body mass index (BMI) [Ratio] 29.02 kg/m2 [facility] [employer] Work Phone: [facility] 12-30-2022 07:56-0400 Body temperature 97.9 [degF] [facility] [employer] Work Phone: [facility] 12-30-2022 07:56-0400 Body weight 97.07 kg [facility] E [employer] MARKETING ANALYST - DIRECTOR WEIGHTS AND MEASURES Work Phone: [facility] 12-30-2022 07:56-0400 Diastolic blood pressure 72 mm[Hg] [facility] E [employer] MARK[employer]ING ANALYST - DIRECTOR WEIGHTS AND MEASURES Work Phone: [facility] 12-30-2022 07:56-0400 Heart rate 68 /min [facility] E [employer]ING ANALYST - DIRECTOR WEIGHTS AND MEASURES Work Phone: [facility] 12-30-2022 07:56-0400 Systolic blood pressure 122 mm[Hg] [facility] E [employer] MARKETING ANALYST - DIRECTOR WEIGHTS AND MEASURES Work Phone: [facility] [employer] 08-29-2022 03:23-0400 Body temperature 37.0 {degrees_C} Brian Jean Work Phone: [facility] Work Phone: Encounters Encounter Date Encounter Type Care Provider Facility Start: 12-30-2022 End: 12-30-2022 ambulatory [facility] Start: 12-30-2022 End: 12-30-2022 Office outpatient new 45 minutes [facility] E [employer] A[employer]LYST - DIRECTOR WEIGHTS AND MEASURES Work Phone: [facility] Procedures Date Procedure Procedure Detail Performing Clinician Start: 08-31-2022 Echocardiography Christos Jean Work Phone: NEGATED: Highlighted row has not occurred! Denies Prior Surgical Procedure Not Done Brian Jean Work Phone: Plan of Treatment Date Care Activity Detail Author Start: 05-16-2023 End: 05-16-2023 Patient encounter procedure 05/16/2023 9:30 AM EST Office Visit [facility] [address] [place] [address] Marck Giraldo MD [address] [place] [address] [facility] Start: 04-26-2023 End: 10-26-2023 PSA Total PSA Total Lab Routine Elevated PSA Expected: 04/26/2023 (Approximate), Expires: 10/26/2023 [facility] Work Phone: Payers Date Payer Category Payer Medicare [facility] MEDICARE ADVANTAGE [id number] 2022-Present [address] [place] [address] Medicare HMO [id number] 2022 Private Health Insurance [id number] 1945 Unknown [id number] Unknown Social History Date Type Detail Facility Start: 10-25-2022 Self-employed [facility] Work Phone: Start: 10-25-2022 Tobacco smoking stat [facility] Never smoked tobacco [facility] Start: 10-25-2022 Tobacco use and exposure Smokeless tobacco non-user [facility] Start: 10-25-2022 End: 12-30-2022 Alcohol intake Ex-drinker (finding) [facility] Start: 1945 Sex Assigned At Not on file [facility] Start: 10-25-2022 Gender identity Not on file [facility] Start: 10-15-2022 End: 12-30-2022 Exposure to SARS-CoV-2 (event) Not sure [facility] History of Present illness Narrative 12-30-2022 FRANCHESCA Palmer CNP - 12/30/2022 8:00 AM EDT Note Date & Type Note Facility 12-30-2022 History of Presen t illness Narrative Images from the original note were not included. [facility] [address] [place] [id number] Dept: [phone] Dept Loc: [phone] Visit type: New Reason for Visit: New [...] Saenz, re: fatty liver. Patient resides in [facility]-has been living there since August 2022 following [...] Normal appearance. HENT: Head: Normocephalic. Ears: Comments: [place] Eyes: General: No scleral icterus. Cardiovascular: Rate [...] 12/30/22 documented in this encounter [facility] Instructions 12-30-2022 Patient InstructionsAttachments Note Date & Type Note Facility 12-30-2022 Instructions FRANCHESCA Palmer CNP - 12/30/2022 8:00 AM EDT --Please call office with any questions or concerns! [phone] --Obtain additional lab work for further evaluation of the symptoms. --Schedule MRI liver --Please see handout provided regarding additional recommendations for the symptoms including when to seek emergency care or further treatment. --Follow-up with PCP, and in GI clinic in about 3 months following the above evaluation and recommendations. The following attachments cannot be sent through Care Everywhere.Fecal Incontinence (Belarusian)documented in this encounter [facility] History of Present illness Narrative 10-25-2022 [...] deconditioning. In wheelchair, still at rehab at [facility] in [place]. He normally lives in [place]. Has psa 5.57 Psa in 2019 9.36 [...] AM documented in this encounter [facility] Discharge summary note 09-04-2022 Note Date [...] Condition at Discharge: Satisfactory Disposition at Discharge: Shelter Facility (SNF) Vital Signs: T PRBPMAPSpO2 Value36.67793215/6695% Date/Time09/04 8: 8: 8: 8: 8:21 Range(36.2C [...] Surgical Pathology Drawn at 02-Sep-2022 14:40:00 Cytology-Non EXPORT MANAGER Drawn at 02-Sep-2022 00:00:00 Venous Full Panel Drawn at 28-Aug-2022 19:12:00 Radiology Results - Pending: None Discharge Instructions: Activity: activity as tolerated. May shower.. Nutrition/Diet: low sodium Fluid Restriction: 1.5L Labs: Lab Test(s): CBC, Comprehensive Metabolic Panel Date To Be Drawn: 09/06/2022 Fax Results To: Dr Maynard, #[phone] Rehab Services: Occupational Therapy Orders: [facility] Treat ([facility]) Physical Therapy Orders: Eval and Treat ([facility]) Care Recommendation: I recommend that INPATIENT care is required at:: Skilled Follow Up Appointments: Follow-Up Appointment 01: Physician/Dept/Service: Dr. Malou Bowen - Pulmonary Scheduled Date/Time: (more content not included)... [facility] History and physical note 08-29-2022 Note Date & Type Note Facility 08-29-2022 Note History of Present I llness: HPI: CHRISTOS SNOW is a 77 year old Male with a past medical history of hypertension, hyperlipidemia, anemia, alcohol use disorder, BPH, anxiety, hypothyroidism, gouty arthritis who presented to [facility] complaining of worsening dysphagia to solid foods [...] are negative Objective: Objective Information: T PRBPMAPSpO2 Value36.30253984/6697% Date/Time08/28 23: 23: 23: 23:094/ 23:09 Range(36.2C [...] 2 Hours PRN (more content not included)... [facility] Evaluation note Note Date & Type Note Facility [facility] Note Date & Type [...] [place] and [place] contrast JoseclaireErendira APRN - DIRECTOR WEIGHTS AND MEASURES [address] [address] Referral ID Status Reason Start Date Expiration Date V isits Requested Visits Authorized [id number] Pending Review 12/30/2022 06/28/2023 1 1 Additional Source Comments (unrecognized sect ion and content) No Status Records FoundNo Status Records FoundNo Status Records FoundNo Status Records Found INFORMATION SOURCE (unrecogn ized section and content) DATE CREATED AUTHOR AUTHOR'S ORGANIZ ATION 09/07/2022 [facility] DATE CREATED AUTHOR AUTHOR'S ORGANIZ ATION 09/08/2022 [facility] DATE CREATED AUTHOR AUTHOR'S ORGANIZ ATION 05/05/2023 [facility] Reason for Visit (unrecogniz ed section and content) Reason Comments New Patient Fatty liver Specialty Diagnoses / Procedures Referred By Contac t Referred To Contact Gastroenterology Diagnoses GI consult for fatty liver Procedures Consult Zahra Saenz [address] [place] [address] [address] [place] [address] [facility] [address] [address] Referral ID Status Reason Start Date Expiration Date V isits Requested Visits Authorized [id number] Pending Review 10/01/2022 10/01/2023 1 1 Care Teams (unrecognized sec tion and content) Hereditary Cancer Program Coordinator Relationship Specialty Start Date End Date Zahra Saenz [address] [place] [address] [address] [place] [address] PCP - General Family Medicine 09/22/22 Marck Giraldo MD [address] [facility] [address] [place] [address] Surgeon Urology 10/25/22 FOR RECORDS PERTAINING TO [...] BE BASED ON THE PRIMARY CLINICAL RECORDS. [facility]. provides no warranty or guarantee of the accuracy or completeness of information in this document.
== END ==
LOC: OLS.ACW100 07:00
PROVIDERS: Visit Provider Family Medicine
DX: M62.81 Muscle weakness (generalized) (principal)
CPT/HCPCS: 36415; 84436; 84443; 84480

== ENCOUNTER → 2023-08-15 | Outpatient (REF) | payer MEDICARE, MEDICAID, SELFPAY ==
[2023-08-15 10:26] LABS: Anion Gap 7 (5-15); BUN 9 mg/dL (7-18); BUN/Creat Ratio 13.5 RATIO (10-20); Calcium,Total 8.9 mg/dL (8.5-10.1); Chloride 101 mmol/L (98-107); Creatinine, Serum 0.67 mg/dL (0.70-1.30); EST Glomerular Filtration Rate 123 mL/min (>60); Est Glom Filt Rate - Afr Amer 148 mL/min (>60); Glucose 360 mg/dL (74-106); Potassium 3.7 mmol/L (3.5-5.1); Sodium Level 137 mmol/L (136-145)
== END ==
LOC: OLS.ACW100 04:00
PROVIDERS: Referring Provider Family Medicine; Visit Provider Family Medicine
DX: C34.90 Malignant neoplasm of unspecified part of unspecified bronchus or lung (principal); R13.10 Dysphagia, unspecified; M62.81 Muscle weakness (generalized); R53.1 Weakness
CPT/HCPCS: 36415; 80048

== ENCOUNTER → 2023-09-07 05:00 | Outpatient (REF) | payer MEDICARE, MEDICAID, SELFPAY ==
[2023-09-07 07:59] LABS: T3 Total - Triiodothyronine 0.81 ng/mL (0.6-1.81)
[2023-09-07 08:15] LABS: T4 Total, Thyroxin 10.2 ug/dL (4.5-12.1); Thyroid Stim Hormone (TSH) 2.04 uIU/mL (0.358-3.74)
== END ==
LOC: OLS.ACW100 05:00
PROVIDERS: Visit Provider Family Medicine
DX: C34.90 Malignant neoplasm of unspecified part of unspecified bronchus or lung (principal); R13.10 Dysphagia, unspecified; M62.81 Muscle weakness (generalized); R27.9 Unspecified lack of coordination; R53.1 Weakness; R27.8 Other lack of coordination
CPT/HCPCS: 36415; 84436; 84443; 84480

== ENCOUNTER → 2024-02-07 | Outpatient (REF) | payer MEDICARE, MEDICAID, SELFPAY ==
[2024-02-07 09:45] LABS: T3 Total - Triiodothyronine 0.67 ng/mL (0.6-1.81)
[2024-02-07 09:51] LABS: Hematocrit 38.1 % (40-54); Hemoglobin 12.4 g/dL (13.0-16.5); Mean Corp Hgb Conc 32.5 g/dL (32-36); Mean Corpuscular Hgb 29.5 pg (27.0-32.0); Mean Corpuscular Volume 90.5 fL (80-94); Mean Platelet Vol. 11.2 fl (6.2-12.0); Platelet Count 259 K/mm3 (150-450); RBC Distribution Width CV 13.7 % (11.6-14.6); RBC Distribution Width SD 45.5 fl (35.1-43.9); Red Blood Count 4.21 M/mm3 (4.6-6.2); White Blood Count 8.9 K/mm3 (4.4-11.0)
[2024-02-07 10:29] LABS: ALB/GLOB Ratio 0.8 RATIO (0.9-2.4); AST(SGOT) 21 U/L (15-37); Alanine Aminotransfer ALT/SGPT 33 U/L (16-61); Albumin, Serum 3.1 g/dL (3.2-5.0); Alkaline Phosphatase 219 U/L (45-117); Anion Gap 6 (5-15); BUN 9 mg/dL (7-18); BUN/Creat Ratio 14.3 RATIO (10-20); Calcium,Total 9.4 mg/dL (8.5-10.1); Chloride 100 mmol/L (98-107); Cholesterol 111 mg/dL (200); Creatinine, Serum 0.63 mg/dL (0.70-1.30); EST Glomerular Filtration Rate 131 mL/min (>60); Est Glom Filt Rate - Afr Amer 158 mL/min (>60); Globulin 3.7 g/dL (2.2-4.2); Glucose 388 mg/dL (74-106); High Density Lipoprotein 43 mg/dL; Potassium 3.6 mmol/L (3.5-5.1); Protein, Total 6.8 g/dL (6.4-8.2); Sodium Level 135 mmol/L (136-145); Triglycerides 242 mg/dL; Uric Acid 2.8 mg/dL (3.5-7.2); Very Low Density Lipoprotein 48 mg/dL (5-40)
== END ==
LOC: OLS.ACW100 05:00
PROVIDERS: Visit Provider Family Medicine
DX: C34.90 Malignant neoplasm of unspecified part of unspecified bronchus or lung (principal); R13.10 Dysphagia, unspecified; M62.81 Muscle weakness (generalized); R27.9 Unspecified lack of coordination
CPT/HCPCS: 36415; 80053; 80061; 84436; 84443; 84480; 84550; 85027

== ENCOUNTER → 2024-02-09 | Outpatient (REF) | payer MEDICARE, MEDICAID, SELFPAY ==
[2024-02-09 17:20] LABS: Hemoglobin A1c > 14.0 % (3.8-5.6)
== END ==
LOC: OLS.ACW100 05:00
PROVIDERS: Visit Provider Family Medicine
DX: C34.90 Malignant neoplasm of unspecified part of unspecified bronchus or lung (principal); R13.10 Dysphagia, unspecified; M62.81 Muscle weakness (generalized); R53.1 Weakness
CPT/HCPCS: 36415; 83036

== ENCOUNTER → 2024-02-14 | Outpatient (REF) | payer MEDICARE, MEDICAID, SELFPAY ==
[2024-02-14 09:34] LABS: PSA,Total - Annual Screen 6.58 ng/mL (0.00-4.00)
== END ==
LOC: OLS.ACW100 06:15
PROVIDERS: Visit Provider Family Medicine
DX: Z12.5 Encounter for screening for malignant neoplasm of prostate (principal)
CPT/HCPCS: 36415; 84153; G0103

== ENCOUNTER → 2024-04-12 | Outpatient (REF) | payer MEDICARE, MEDICAID, SELFPAY ==
[2024-04-12 08:53] LABS: Hematocrit 37.2 % (40-54); Hemoglobin 11.8 g/dL (13.0-16.5); Mean Corp Hgb Conc 31.7 g/dL (32-36); Mean Corpuscular Hgb 28.9 pg (27.0-32.0); Mean Corpuscular Volume 91.2 fL (80-94); Mean Platelet Vol. 10.4 fl (6.2-12.0); Platelet Count 303 K/mm3 (150-450); Red Blood Count 4.08 M/mm3 (4.6-6.2); White Blood Count 9.3 K/mm3 (4.4-11.0)
[2024-04-12 09:14] LABS: Vitamin D,25 Hydroxy 37.2 ng/mL
[2024-04-12 09:28] LABS: ALB/GLOB Ratio 0.8 RATIO (0.9-2.4); AST(SGOT) 24 U/L (15-37); Alanine Aminotransfer ALT/SGPT 25 U/L (16-61); Alkaline Phosphatase 155 U/L (45-117); Anion Gap 6 (5-15); BUN 4 mg/dL (7-18); BUN/Creat Ratio 7.9 RATIO (10-20); Calcium,Total 8.8 mg/dL (8.5-10.1); Chloride 105 mmol/L (98-107); Cholesterol 122 mg/dL (200); Creatinine, Serum 0.51 mg/dL (0.70-1.30); EST Glomerular Filtration Rate 168 mL/min (>60); Est Glom Filt Rate - Afr Amer 203 mL/min (>60); Globulin 3.6 g/dL (2.2-4.2); Glucose 119 mg/dL (74-106); High Density Lipoprotein 51 mg/dL; PSA,Total - Annual Screen 6.56 ng/mL (0.00-4.00); Potassium 3.9 mmol/L (3.5-5.1); Protein, Total 6.6 g/dL (6.4-8.2); Sodium Level 138 mmol/L (136-145); Triglycerides 147 mg/dL; Very Low Density Lipoprotein 29 mg/dL (5-40)
[2024-04-12 12:34] LABS: Hemoglobin A1c 10.9 % (3.8-5.6)
== END ==
LOC: OLS.ACW100 05:00
PROVIDERS: Visit Provider Family Medicine
DX: C34.90 Malignant neoplasm of unspecified part of unspecified bronchus or lung (principal); R13.10 Dysphagia, unspecified; R53.83 Other fatigue; R53.81 Other malaise; M62.81 Muscle weakness (generalized); R27.9 Unspecified lack of coordination
CPT/HCPCS: 36415; 80053; 80061; 82306; 83036; 84153; 84443; 85027; G0103

== ENCOUNTER → 2024-05-10 05:00 | Outpatient (REF) | payer MEDICARE, MEDICAID, SELFPAY ==
[2024-05-10 09:34] LABS: Hematocrit 37.2 % (40-54); Mean Corp Hgb Conc 32.3 g/dL (32-36); Mean Corpuscular Hgb 28.9 pg (27.0-32.0); Mean Corpuscular Volume 89.6 fL (80-94); Mean Platelet Vol. 10.7 fl (6.2-12.0); Platelet Count 358 K/mm3 (150-450); RBC Distribution Width SD 46.1 fl (35.1-43.9); Red Blood Count 4.15 M/mm3 (4.6-6.2); White Blood Count 10.1 K/mm3 (4.4-11.0)
[2024-05-10 10:06] LABS: ALB/GLOB Ratio 0.8 RATIO (0.9-2.4); AST(SGOT) 16 U/L (15-37); Alanine Aminotransfer ALT/SGPT 22 U/L (16-61); Albumin, Serum 3.2 g/dL (3.2-5.0); Alkaline Phosphatase 165 U/L (45-117); Anion Gap 7 (5-15); BUN 6 mg/dL (7-18); BUN/Creat Ratio 10.4 RATIO (10-20); Calcium,Total 9.2 mg/dL (8.5-10.1); Chloride 102 mmol/L (98-107); Cholesterol 122 mg/dL (200); Creatinine, Serum 0.58 mg/dL (0.70-1.30); EST Glomerular Filtration Rate 144 mL/min (>60); Est Glom Filt Rate - Afr Amer 174 mL/min (>60); Globulin 3.9 g/dL (2.2-4.2); Glucose 125 mg/dL (74-106); High Density Lipoprotein 50 mg/dL; Potassium 3.7 mmol/L (3.5-5.1); Protein, Total 7.1 g/dL (6.4-8.2); Sodium Level 136 mmol/L (136-145); T4 Total, Thyroxin 11.4 ug/dL (4.5-12.1); Triglycerides 155 mg/dL; Uric Acid 3.5 mg/dL (3.5-7.2); Very Low Density Lipoprotein 31 mg/dL (5-40)
[2024-05-10 10:07] LABS: T3 Total - Triiodothyronine 1.13 ng/mL (0.6-1.81)
[2024-05-10 10:28] LABS: Hemoglobin A1c 8.8 % (3.8-5.6)
== END ==
LOC: OLS.ACW100 05:00
PROVIDERS: Visit Provider Family Medicine
DX: C34.90 Malignant neoplasm of unspecified part of unspecified bronchus or lung (principal); R53.83 Other fatigue; R53.81 Other malaise; M62.81 Muscle weakness (generalized)
CPT/HCPCS: 36415; 80053; 80061; 83036; 84436; 84443; 84480; 84550; 85027

== ENCOUNTER → 2024-08-07 | Outpatient (REF) | payer MEDICARE, MEDICAID, SELFPAY ==
[2024-08-07 09:21] LABS: Hematocrit 36.8 % (40-54); Hemoglobin 12.3 g/dL (13.0-16.5); Mean Corp Hgb Conc 33.4 g/dL (32-36); Mean Corpuscular Hgb 29.1 pg (27.0-32.0); Mean Corpuscular Volume 87.2 fL (80-94); Mean Platelet Vol. 10.5 fl (6.2-12.0); Platelet Count 307 K/mm3 (150-450); RBC Distribution Width CV 14.2 % (11.6-14.6); Red Blood Count 4.22 M/mm3 (4.6-6.2); White Blood Count 9.5 K/mm3 (4.4-11.0)
[2024-08-07 09:56] LABS: ALB/GLOB Ratio 1.2 RATIO (0.9-2.4); AST(SGOT) 25 U/L (<=37); Alanine Aminotransfer ALT/SGPT 19 U/L (<=46); Albumin, Serum 3.7 g/dL (3.4-4.8); Alkaline Phosphatase 147 U/L (40-129); Anion Gap 11 (5-15); BUN 5 mg/dL (4-19); BUN/Creat Ratio 9.7 RATIO (10-20); Calcium,Total 9.1 mg/dL (7.6-11.0); Carbon Dioxide 25.6 mmol/L (21.0-32.0); Chloride 102 mmol/L (98-108); Cholesterol 86 mg/dL (<=200); Creatinine, Serum 0.49 mg/dL (0.70-1.20); EST Glomerular Filtration Rate 104 (>60); Glucose 113 mg/dL (70-99); High Density Lipoprotein 34 mg/dL; Low Density Lipoprotein Calc. 31 mg/dL; Potassium 3.8 mmol/L (3.3-5.1); Protein, Total 6.7 g/dL (5.9-8.4); Sodium Level 139 mmol/L (133-145); T3 Total - Triiodothyronine 0.72 ng/mL (0.80-2.00); T4 Total, Thyroxin 8.4 ug/dL (4.5-12.1); Triglycerides 105 mg/dL; Uric Acid 4.5 mg/dL (3.5-7.2); Very Low Density Lipoprotein 21 mg/dL (5-40); Vitamin D,25 Hydroxy 28.4 ng/mL (30-100); cholesterol:hdl ratio screen 2.53
[2024-08-07 10:01] LABS: Hemoglobin A1c 7.4 % (<=5.6)
== END ==
LOC: OLS.ACW100 06:50
PROVIDERS: Referring Provider Family Medicine; Visit Provider Family Medicine
DX: E11.65 Type 2 diabetes mellitus with hyperglycemia (principal); I50.812 Chronic right heart failure; M10.9 Gout, unspecified; E03.9 Hypothyroidism, unspecified; I27.20 Pulmonary hypertension, unspecified
CPT/HCPCS: 36415; 80053; 80061; 82306; 83036; 84436; 84443; 84480; 84550; 85027

== ENCOUNTER → 2024-10-26 | Outpatient (REF) | payer MEDICARE, MEDICAID, SELFPAY ==
--- OUTSIDE RECORDS SUMMARY | 2024-10-26 04:33 | XMS RPT_ITS | CCD ---
Author Organization [facility] Inform ion Partnership [facility] Care Team Providers Care Block Cableman Name Role Phone Brian Jean Unavailable Unavailable Unavailable Dr. Polo Sanchez Admitting Jh Sal, Dr. Maynard Attending UnavailBashir Holman Referring Unavailable Dr. Brian Jean Primary Care Henry Razo Primary Care Provider [phone] Barron Giraldo MD Unavailable [phone] Henry Gruber MD Primary Care Provider Barron Giraldo MD Unavailable Henry Mathis Attending Unavailable Allyn REID, Henry Attending Unavailable Allyn REID, Henry Attending Unavailable Henry Mathis Referring Unavailable Allyn REID, Henry Attending Unavailable Henry Mathis Referring Unavailable Allyn REID, Henry Attending Unavailable Allyn REID, Henry Attending Unavailable Allyn REID, Henry Attending Unavailable Allyn REID, Henry Attending Unavailable Allergies Allergy Classification Reported Allergen(s) Allergy Type Date of Onset Reaction(s) Facility (1 source) Colchicine; Translations: [Colchicine CAPS] Drug Allergy Rash -Univ Gastroenterol kaityy-Flacog e Work Phone: (5 sources) [place]chicine Drug Allergy 10-25-2022 Rash [facility] Medications Current Medications Medication Drug Class(es) Dates Sig (Normalized) Sig (Original) allopurinol 100 mg oral tablet (6 sources) Xanthine Oxidase Inhibitor Start: 10-13-2022 allopurinol (Zyloprim) 100 MG tablet 10/13/2022 Active Start: 07-16-2015 take 1 tablet by mari once daily Allopurinol 300 MG Oral Tablet TAKE ONE TABLET BY MOUTH EVERY DAY Quantity: 90 Refills: 1 Ordered: 23-Apr-2020 Edward Quintana MD Start : 16-Jul-2015 Active ascorbic acid 60 mg / beta carotene 5000 unt / copper sulfate 40 mg / dl-alpha tocopheryl acetate 30 unt / sodium selenite 0.04 mg / zinc oxide 40 mg oral tablet (4 sources) Vitamin C Multiple Vitamin s-Iron (Tab-A-Serena/Iron) tablet Take by mouth. Active atorvastatin 40 mg oral tablet (5 sources) HMG-CoA Reductase Inhibitor Start: atorvastatin (Lipitor) 40 MG tablet 10/01/2022 Active cholecalciferol 0.025 mg oral capsule (4 sources) Vitamin D take 1 capsule by mouth once daily cholecalciferol (Vitamin D-3) 25 MCG (1000 UT) capsule Take 1,000 Units by mouth daily. Active cimetidine 400 mg oral tablet (4 sources) Histamine-2 Receptor Antagonist take 1 tablet by mouth twice daily cimetidine (Tagamet) 400 MG tablet Take 400 mg by mouth 2 times daily. Active folic acid 1 mg oral tablet (5 sources) Start: folic acid (Folvite) 1 MG tablet 10/01/2022 Active furosemide 20 mg oral tablet (5 sources) Loop Diuretic Start: furosemide (Lasix) 20 MG tablet 10/01/2022 Active gabapentin 300 mg oral capsule (5 sources) Anti-epileptic Agent Start: gabapentin (Neurontin) 300 MG capsule 10/01/2022 Active levothyroxine sodium 0.112 mg oral capsule (4 sources) l-Thyroxine levothyroxine (T irosint) 112 MCG capsule Take by mouth every morning (before breakfast). Active pantoprazole 40 mg delayed release oral tablet (5 sources) Proton Pump Inhibitor Start: pantoprazole (ProtoNix) 40 MG EC tablet 10/01/2022 Active polyethylene glycol 3350 89278 mg powder for oral solution (4 sources) Osmotic Laxative polyethylene gl ycol, PEG, 3350 (Miralax) 17 g packet Take by mouth. Active polyethylene gly col, PEG, 3350 (Miralax) 17 g packet Take by mouth. 0 Active microencapsulated potassium chloride 20 meq extended release oral tablet (5 sources) Start: 10-09-2022 potassium chlo ride CR (Klor-Con M20) 20 MEQ ER tablet 10/09/2022 Active PSYLLIUM HUSK PO (4 sources) PSYLLIUM HUSK PO Take by mouth. Active PSYLLIUM HUSK PO Take by mouth. 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, in remission] 12-30-2022 Chronic Anxiety disorders (1 source) Anxiety; Translations: [Anxiety state, unspecified] Chronic Cancer of bronchus; lung (2 sources) Malignant neoplasm of unspecified part of unspecified bronchus or lung; Translations: [Malignant neoplasm of unspecified part of unspecified bronchus or lung] Onset: 09-12-2023 Chronic Congestive heart failure; nonhypertensive (1 source) Chronic right heart failure; Translations: [Chronic right heart failure] Onset: 08-28-2024 Chronic Deficiency and other anemia (1 source) Anemia; Translations: [Anemia, unspecified] Episodic Diabetes mellitus with complications (1 source) Type 2 diabetes mellitus with hyperglycemia; Translations: [Type 2 diabetes mellitus with hyperglycemia] Onset: 08-28-2024 Chronic Diabetes mellitus without complication (1 source) Hyperglycemia; Translations: [Impaired fasting glucose] Episodic Gout and other crystal arthropathies (8 sources) Primary gout; Translations: [Gouty arthropathy, unspecified] Onset: 08-28-2024 Resolved: 10-16-2016 Chronic Hyperplasia of prostate (4 sources) Prostate nodule; Translations: [Nodular prostate without urinary obstruction] Onset: 07-25-2024 10-25-2022 Chronic Malaise and fatigue (6 sources) Weakness; Translations: [Other malaise] Onset: 08-29-2022 Episodic Osteoarthritis (3 sources) Osteoarthritis [...] not elsewhere classified, right forearm] Episodic Other connective tissue disease (2 sources) Muscle weakness (generalized); Translations: [Muscle weakness (generalized)] Onset: 09-12-2023 Episodic Other gastrointestinal disorders (1 source) Incontinence of feces; Translations: [Full incontinence of feces] 12-30-2022 Episodic Other gastrointestinal disorders (2 sources) Dysphagia, unspecified; Translations: [Dysphagia, unspecified] Onset: 09-12-2023 Episodic Other liver diseases (1 source) Fatty (change of) liver, not elsewhere classified; Translations: [Fatty (change of) liver, not elsewhere classified] Onset: 08-28-2024 Chronic Other nervous system disorders (2 sources) Unspecified lack of coordination; Translations: [Unspecified lack of coordination] Onset: 09-12-2023 Episodic Other non-traumatic joint disorders (2 sources) Pain in right knee; Translations: [Knee pain, right] Resolved: 10-16-2016 Episodic Other screening for suspected conditions (not mental disorders or infectious disease) (5 sources) Raised prostate specific antigen; Translations: [Elevated prostate specific antigen [PSA]] 10-25-2022 Episodic Pulmonary heart disease (1 source) Primary pulmonary hypertension; Translations: [Primary pulmonary hypertension] Onset: 08-28-2024 Chronic Thyroid disorders (2 sources) Hypothyroidism; Translations: [Unspecified acquired hypothyroidism] Onset: 08-28-2024 Chronic Past or Other Problems Problem Classification Problem Date Documented Date Episodic/Chronic E Codes: Natural/environment (1 source) Nonvenomous [...] history of arthritis] Resolved: 10-16-2016 Episodic Other nervous system disorders (2 sources) Other lack of coordination; Translations: [Other lack of coordination] Onset: 09-12-2023 Episodic Other non-traumatic joint disorders (2 sources) Effusion of joint of left knee; Translations: [Effusion of joint, lower leg] Resolved: 10-16-2016 Episodic Other non-traumatic joint disorders (1 source) Anterior knee pain; Translations: [Pain in joint, lower leg] Resolved: 10-16-2016 Episodic Other non-traumatic joint disorders (1 source) Swelling of knee joint; Translations: [Effusion of joint, lower leg] Resolved: 10-16-2016 Episodic Other skin disorders (1 source) Maculopapular eruption; Translations: [Rash and other nonspecific skin eruption] Resolved: 10-16-2016 Episodic Other skin disorders (1 source) Eruption; Translations: [Rash and other nonspecific skin eruption] Resolved: 10-16-2016 Episodic Results Test Name Value Interpretation Reference Range Facility [id number] Name of Caller: Geovani palma ([facility]) Contact Reason for Appointment: So called [facility] Pt wanted to cancel his 06/11 appt and does not want to r/s at this time. Please be advised Office Name: [facility] 36on 05-24-2024 36 Radha from [facility] in [place] called to reschedule the patient's 05/16/[address] Giraldo. Patient is not ambulatory and will be arriving on cot. Appt RS to 06/11/24. [facility] Serum or plasma thyroid stim ulating hormone (TSH) measurement (units/volume)Ordered By: Henry Gruber on 06-09-2023 TSH Qn 3.39 uIU/mL 0.358-3.74 [facility] Serum or plasma thyroxine (T 4) measurement (mass/volume)Ordered By: Henry Gruber on 06-09-2023 T4 [Mass/Vol] 8.2 ug/dL 4.5-12.1 [facility] Serum or plasma triiodothyro nine measurement by immunoassay (mass/volume)Ordered By: Henry Gruber on 06-09-2023 T3 IA [Mass/Vol] 1.05 ng/mL 0.6-1.81 [facility] No Panel InformationOrdered By: Henry Gruber on 05-10-2023 Prostate Specific Antigen Screen 4.50 ng/mL 0.00-4.00 [facility] Comment on above: This test was perfor med using the TPSA assay method for [employer] chemistry system. Values obtained with differentassay methods cannot be used interchangably.When changing PSA assays in the course of monitoring apatient, additional sequential testing should be carriedout to confirm baseline values. Laboratory - Chemistry and C hemistry - challengeOrdered By: Henry Gruber on 03-11-2023 T4 [Mass/Vol] 8.9 ug/dL 4.5-12.1 [facility] No Panel InformationOrdered By: Henry Gruber on 03-11-2023 Thyroid Stimulating Hormone (TSH) 3.55 uIU/mL 0.358-3.74 [facility] Total Triiodothyronine 1.11 ng/mL 0.6-1.81 [facility] Basophil percentageOrdered B y: Henry Gruber on 01-17-2023 Chloride [Moles/Vol] 102 mmol/L 98-107 [facility] Glucose [Mass/Vol] 108 mg/dL 74-106 [facility] Comment on above: Fasting Glucose resu lt from 100 to 125 mg/dL suggests IMPAIRED HOMEOSTASIS per A.D.A. criteria. Potassium [Moles/Vol] 3.9 mmol/L 3.5-5.1 [facility] Sodium [Moles/Vol] 136 mmol/L 136-145 [facility] Laboratory - Chemistry and C hemistry - challengeOrdered By: Henry Gruber on 01-17-2023 CO2 [Moles/Vol] 29.0 mmol/L 21.0-32.0 [facility] Urea nitrogen/Creatinine [Mass ratio] 10.0 mg/mg 10-20 [facility] No Panel InformationOrdered By: Henry Gruber on 01-17-2023 Estimated GFR (MDRD) Amer 168 mL/min >60 [facility] Comment on above: GFR Calc Estimated GFR (MDRD) Non-Af Amer 139 mL/min >60 [facility] Comment on above: Non- GFR Calc Serum or plasma calcium bell urement (mass/volume)Ordered By: Henry Gruber on 01-17-2023 Calcium [Mass/Vol] 8.9 mg/dL 8.5-10.1 [facility] Serum or plasma creatinine m easurement (mass/volume)Ordered By: Henry Gruber on 01-17-2023 Creatinine [Mass/Vol] 0.60 mg/dL 0.70-1.30 [facility] Comment on above: The validity of the calculated GFR & GFRAA in patients over 70 years has not been determined. Clinical correlation is essential. Serum or plasma urea nitroge n measurement (mass/volume)Ordered By: Henry Gruber on 01-17-2023 Urea nitrogen [Mass/Vol] 6 mg/dL 7-18 [facility] Serum or plasma uric acid me asurement (mass/volume)Ordered By: Henry Gruber on 01-17-2023 Urate [Mass/Vol] 4.1 mg/dL 3.5-7.2 [facility] Comment on above: The drugs N-Acetylcy steine and Metamizole may falsely depress this assay. Thin prep Papanicolaou smear with manual screeningOrdered By: Henry Gruber on 01-17-2023 Thin prep Papanicolaou smear with manual screening 5 5-15 [facility] Basophil percentageOrdered B y: Henry Gruber on 01-13-2023 Chloride [Moles/Vol] 106 mmol/L 98-107 [facility] Glucose [Mass/Vol] 120 mg/dL 74-106 [facility] Comment on above: Fasting Glucose resu lt from 100 to 125 mg/dL suggests IMPAIRED HOMEOSTASIS per A.D.A. criteria. Potassium [Moles/Vol] 3.7 mmol/L 3.5-5.1 [facility] Sodium [Moles/Vol] 139 mmol/L 136-145 [facility] Laboratory - Chemistry and C hemistry - challengeOrdered By: Henry Gruber on 01-13-2023 CO2 [Moles/Vol] 27.0 mmol/L 21.0-32.0 [facility] Urea nitrogen/Creatinine [Mass ratio] 12.2 mg/mg 10-20 [facility] No Panel InformationOrdered By: Henry Gruber on 01-13-2023 Estimated GFR (MDRD) Amer 211 mL/min >60 [facility] Comment on above: GFR Calc Estimated GFR (MDRD) Non-Af Amer 174 mL/min >60 [facility] Comment on above: Non- GFR Calc Serum or plasma calcium bell urement (mass/volume)Ordered By: Henry Gruber on 01-13-2023 Calcium [Mass/Vol] 8.5 mg/dL 8.5-10.1 [facility] Serum or plasma creatinine m easurement (mass/volume)Ordered By: Henry Gruber on 01-13-2023 Creatinine [Mass/Vol] 0.49 mg/dL 0.70-1.30 [facility] Comment on above: The validity of the calculated GFR & GFRAA in patients over 70 years has not been determined. Clinical correlation is essential. Serum or plasma urea nitroge n measurement (mass/volume)Ordered By: Henry Gruber on 01-13-2023 Urea nitrogen [Mass/Vol] 6 mg/dL 7-18 [facility] Thin prep Papanicolaou smear with manual screeningOrdered By: Henry Gruber on 01-13-2023 Thin prep Papanicolaou smear with manual screening 6 5-15 [facility] No Panel InformationOrdered By: Henry Gruber on 01-05-2023 Stool Pancreatic Elastase 440 >200 [facility] Comment on above: Result Units: ug Fernanda st./g Severe Pancreatic Insufficiency: <100 Moderate Pancreatic Insufficiency: 100 - 200 Normal: >200Performed at: [facility] [address] [id number] Director: Terra Velazquez MD, Phone: [phone] Basophil percentageOrdered B y: Henry Gruber on 01-03-2023 Bilirubin [Mass/Vol] 0.40 mg/dL 0.20-1.00 [facility] Comment on above: For patients on eltr ombopag therapy, use of Dimension [place] TBIL is not recommended. Chloride [Moles/Vol] 105 mmol/L 98-107 [facility] Glucose [Mass/Vol] 177 mg/dL 74-106 [facility] Comment on above: Fasting Glucose resu lt greater than or equal to 126 mg/dL suggests DIABETES MELLITUS per A.D.A. criteria. Potassium [Moles/Vol] 3.4 mmol/L 3.5-5.1 [facility] Protein [Mass/Vol] 6.3 g/dL 6.4-8.2 [facility] Sodium [Moles/Vol] 139 mmol/L 136-145 [facility] WBC (Bld) [#/Vol] 7.5 10*3/uL 4.4-11.0 [facility] Blood erythrocytes count (nu mber/volume)Ordered By: Henry Gruber on 01-03-2023 RBC (Bld) [#/Vol] 3.56 10*6/uL 4.6-6.2 [facility] Blood hemoglobin measurement (mass/volume)Ordered By: Henry Gruber on 01-03-2023 Hemoglobin (Bld) [Mass/Vol] 11.0 g/dL 13.0-16.5 [facility] Blood platelet mean volumeOr dered By: Henry Gruber on 01-03-2023 Platelet mean volume (Bld) [Entitic vol] 10.8 fL 6.2-12.0 [facility] Determination of erythrocyte mean corpuscular volume (MCV)Ordered By: Henry Gruber on 01-03-2023 MCV (RBC) [Entitic vol] 96.3 fL 80-94 [facility] Hematocrit Auto (Bld) [Volum e fraction]Ordered By: Henry Gruber on 01-03-2023 Hematocrit (Bld) [Volume fraction] 34.3 % 40-54 [facility] INR in Blood by Coagulation assayOrdered By: Henry Gruber on 01-03-2023 INR Coag (Bld) [Relative time] 1.0 {INR} [facility] Iron measurement (mass/mass) Ordered By: Henry Gruber on 01-03-2023 Iron (Unsp spec) [Mass/Mass] 46 ug/dL 65-175 [facility] Laboratory - Chemistry and C hemistry - challengeOrdered By: Henry Gruber on 01-03-2023 ALP [Catalytic activity/Vol] 173 U/L 45-117 [facility] ALT [Catalytic activity/Vol] 37 U/L 16-61 [facility] CO2 [Moles/Vol] 28.0 mmol/L 21.0-32.0 [facility] Globulin (S) [Mass/Vol] 3.7 g/dL 2.2-4.2 [facility] Urea nitrogen/Creatinine [Mass ratio] 13.2 mg/mg 10-20 [facility] Laboratory - CoagulationOrde red By: Henry Gruber on 01-03-2023 PT Coag (PPP) [Time] 13.5 s 11.7-14.9 [facility] Laboratory - Hematology and Cell countsOrdered By: Henry Gruber on 01-03-2023 Erythrocyte distribution width (RBC) [Entitic vol] 51.2 fL 35.1-43.9 [facility] Erythrocyte distribution width (RBC) [Ratio] 14.5 % 11.6-14.6 [facility] MCH (RBC) [Entitic mass] 30.9 pg 27.0-32.0 [facility] MCHC Auto (RBC) [Mass/Vol]Or dered By: Henry Gruber on 01-03-2023 MCHC (RBC) [Mass/Vol] 32.1 g/dL 32-36 [facility] No Panel InformationOrdered By: Henry Gruber on 01-03-2023 Anti-Nuclear Antibody Screen Negative Negative [facility] Comment on above: Performed at: [facility] [address] [id number] Director: Ishmael De Los Santos PhD, Phone: [phone] Estimated GFR (MDRD) Amer 165 mL/min >60 [facility] Comment on above: GFR Calc Estimated GFR (MDRD) Non-Af Amer 137 mL/min >60 [facility] Comment on above: Non- GFR Calc Hepatitis A IgM Antibody Negative Negative [facility] Hepatitis B Core IgM Antibody Negative Negative [facility] Hepatitis C Antibody (EIA) Non-Reactive Non Reactive [facility] Hepatitis C Antibody Comment Comment . [facility] Comment on above: Not infected with HC V unless early or acute infection issuspected (which may be delayed in an immunocompromisedindividual), or other evidence exists to indicate HCVinfection. Miscellaneous Test See comment [facility] Comment on above: TEST RESULTS LIMITSL iver-Kidney Microsomal Ab <1.0 Units 0.0- 20.0 Negative 0.0 - 20.0 Equivocal 20.1 - 24.9 Positive >24.9 LKM type 1 antibodies are detected in patients with autoimmune hepatitis type 2 and in up to 8% of patients with chronic HCV infection. [facility] ORIGINAL REPORT ON FILE IN LAB CONTAINS ADDITIONAL TEST SITE INFORMATION. ____ Total Iron Binding Capacity 202 ug/dL 250-450 [facility] Platelets bldOrdered By: Pedro Gruber on 01-03-2023 Platelets (Bld) [#/Vol] 324 10*3/uL 150-450 [facility] Serum mitochondria antibody detectionOrdered By: Henry Gruber on 01-03-2023 Mitochondria Ab Ql (S) <20.0 Units 0.0-20.0 [facility] Comment on above: Negative 0.0 - 20.0 Equivocal 20.1 - 24.9 Positive >24.9Mitochondrial (M2) Antibodies are found in 90-96% ofpatients with primary biliary cirrhosis. Serum or plasma actin IgG an tibody assay (units/volume)Ordered By: Henry Gruber on 01-03-2023 Actin IgG Qn 11 Units 0-19 [facility] Comment on above: Negative 0 - 19 Weak positive 20 - 30 Moderate to strong positive >30 Actin Antibodies are found in 52-85% of patients with autoimmune hepatitis or chronic active hepatitis and in 22% of patients with primary biliary cirrhosis.Performed at: [email or web address] [id number] Director: Ishmael De Los Santos PhD, Phone: [phone] Serum or plasma albumin bell urement (mass/volume)Ordered By: Henry Gruber on 01-03-2023 Albumin [Mass/Vol] 2.6 g/dL 3.2-5.0 [facility] Serum or plasma albumin/glob ulin mass ratioOrdered By: Henry Gruber on 01-03-2023 Albumin/Globulin [Mass ratio] 0.7 {ratio} 0.9-2.4 [facility] Serum or plasma calcium bell urement (mass/volume)Ordered By: Henry Gruber on 01-03-2023 Calcium [Mass/Vol] 8.6 mg/dL 8.5-10.1 [facility] Serum or plasma creatinine m easurement (mass/volume)Ordered By: Henry Gruber on 01-03-2023 Creatinine [Mass/Vol] 0.61 mg/dL 0.70-1.30 [facility] Comment on above: The validity of the calculated GFR & GFRAA in patients over 70 years has not been determined. Clinical correlation is essential. Serum or plasma ferritin allie surement (mass/volume)Ordered By: Henry Gruber on 01-03-2023 Ferritin [Mass/Vol] 246 ng/mL 26-388 [facility] Serum or plasma hepatitis B virus surface antigen detection by immunoassayOrdered By: Henry Gruber on 01-03-2023 HBV surface Ag IA Ql Negative Negative [facility] Serum or plasma iron saturat ion measurement (mass fraction)Ordered By: Henry Gruber on 01-03-2023 Iron saturation [Mass fraction] 22.8 % 15.0-55.0 [facility] Serum or plasma urea nitroge n measurement (mass/volume)Ordered By: Henry Gruber on 01-03-2023 Urea nitrogen [Mass/Vol] 8 mg/dL 7-18 [facility] Thin prep Papanicolaou smear with manual screeningOrdered By: Henry Gruber on 01-03-2023 Thin prep Papanicolaou smear with manual screening 44 U/L 15-37 [facility] Thin prep Papanicolaou smear with manual screening 6 09-20 [facility] No Panel InformationOrdered By: Henry Gruber on 10-18-2022 Thyroid Stimulating Hormone (TSH) 12.70 uIU/mL 0.358-3.74 [facility] Vitamin D 25-Hydroxy 46.4 ng/mL [facility] Comment on above: Vitamin D 25(OH) Sta tus Range Deficiency <20 ng/mL (50nmol/L) Insufficiency 20 - 30 ng/mL (50 - 75 nmol/L) Sufficiency 30 - 100 ng/mL (75 - 250 nmol/L) Toxicity >100 ng/mL (>250 nmol/L) Bacteria identified Cx Nom ( Wound)Ordered By: Henry Gruber on 10-03-2022 Wound Culture Proteus mirabilis [facility] Bacteria identified Cx Nom ( Wound)Ordered By: Henry Gruber on 10-01-2022 Wound Culture Proteus mirabilis [facility] Gram stain for investigation of transfusion reactionOrdered By: Henry Gruber on 10-01-2022 Microscopic observation Gram stain Nom (Unsp spec) [facility] Basophil percentageOrdered B y: Henry Gruber on 09-20-2022 Chloride [Moles/Vol] 98 mmol/L 98-107 [facility] Glucose [Mass/Vol] 92 mg/dL 74-106 [facility] Potassium [Moles/Vol] 3.6 mmol/L 3.5-5.1 [facility] Sodium [Moles/Vol] 134 mmol/L 136-145 [facility] Laboratory - Chemistry and C hemistry - challengeOrdered By: Henry Gruber on 09-20-2022 CO2 [Moles/Vol] 31.0 mmol/L 21.0-32.0 [facility] Urea nitrogen/Creatinine [Mass ratio] 20.3 mg/mg 10- [facility] No Panel InformationOrdered By: Henry Gruber on 09-20-2022 Estimated GFR (MDRD) Amer 272 mL/min >60 [facility] Comment on above: GFR Calc Estimated GFR (MDRD) Non-Af Amer 225 mL/min >60 [facility] Comment on above: Non- GFR Calc Prostate Specific Antigen Screen 5.57 ng/mL 0.00-4.00 [facility] Comment on above: This test was perfor med using the TPSA assay method for [employer] chemistry system. Values obtained with differentassay methods cannot be used interchangably.When changing PSA assays in the course of monitoring apatient, additional sequential testing should be carriedout to confirm baseline values. Serum or plasma calcium bell urement (mass/volume)Ordered By: Henry Gruber on 09-20-2022 Calcium [Mass/Vol] 8.5 mg/dL 8.5-10.1 [facility] Serum or plasma creatinine m easurement (mass/volume)Ordered By: Henry Gruber on 09-20-2022 Creatinine [Mass/Vol] 0.39 mg/dL 0.70-1.30 [facility] Comment on above: The validity of the calculated GFR & GFRAA in patients over 70 years has not been determined. Clinical correlation is essential. Serum or plasma urea nitroge n measurement (mass/volume)Ordered By: Henry Gruber on 09-20-2022 Urea nitrogen [Mass/Vol] 8 mg/dL 7-18 [facility] Thin prep Papanicolaou smear with manual screeningOrdered By: Henry Gruber on 09-20-2022 Thin prep Papanicolaou smear with manual screening 09 10-15 [facility] Basophil percentageOrdered B y: Henry Gruber on 09-15-2022 Chloride [Moles/Vol] 93 mmol/L 98-107 [facility] Glucose [Mass/Vol] 95 mg/dL 74-106 [facility] Potassium [Moles/Vol] 3.0 mmol/L 3.5-5.1 [facility] Sodium [Moles/Vol] 132 mmol/L 136-145 [facility] Laboratory - Chemistry and C hemistry - challengeOrdered By: Henry Gruber on 09-15-2022 CO2 [Moles/Vol] 33.0 mmol/L 21.0-32.0 [facility] Urea nitrogen/Creatinine [Mass ratio] 16.6 mg/mg 10-20 [facility] No Panel InformationOrdered By: Henry Gruber on 09-15-2022 Estimated GFR (MDRD) Amer 252 mL/min >60 [facility] Comment on above: GFR Calc Estimated GFR (MDRD) Non-Af Amer 208 mL/min >60 [facility] Comment on above: Non- GFR Calc Serum or plasma calcium bell urement (mass/volume)Ordered By: Henry Gruber on 09-15-2022 Calcium [Mass/Vol] 8.6 mg/dL 8.5-10.1 [facility] Serum or plasma creatinine m easurement (mass/volume)Ordered By: Henry Gruber on 09-15-2022 Creatinine [Mass/Vol] 0.42 mg/dL 0.70-1.30 [facility] Comment on above: The validity of the calculated GFR & GFRAA in patients over 70 years has not been determined. Clinical correlation is essential. Serum or plasma urea nitroge n measurement (mass/volume)Ordered By: Henry Gruber on 09-15-2022 Urea nitrogen [Mass/Vol] 7 mg/dL 7-18 [facility] Thin prep Papanicolaou smear with manual screeningOrdered By: Henry Gruber on 09-15-2022 Thin prep Papanicolaou smear with manual screening 6 5-15 [facility] Basophil percentageOrdered B y: Henry Gruber on 09-13-2022 Chloride [Moles/Vol] 92 mmol/L 98-107 [facility] Glucose [Mass/Vol] 92 mg/dL 74-106 [facility] Potassium [Moles/Vol] 3.0 mmol/L 3.5-5.1 [facility] Sodium [Moles/Vol] 131 mmol/L 136-145 [facility] WBC (Bld) [#/Vol] 9.6 10*3/uL 4.4-11.0 [facility] Blood erythrocytes count (nu mber/volume)Ordered By: Henry Gruber on 09-13-2022 RBC (Bld) [#/Vol] 2.88 10*6/uL 4.6-6.2 [facility] Blood hemoglobin measurement (mass/volume)Ordered By: Henry Gruber on 09-13-2022 Hemoglobin (Bld) [Mass/Vol] 10.0 g/dL 13.0-16.5 [facility] Blood platelet mean volumeOr dered By: Henry Gruber on 09-13-2022 Platelet mean volume (Bld) [Entitic vol] 10.5 fL 6.2-12.0 [facility] Determination of erythrocyte mean corpuscular volume (MCV)Ordered By: Henry Gruber on 09-13-2022 MCV (RBC) [Entitic vol] 103.1 fL 80-94 [facility] Hematocrit Auto (Bld) [Volum e fraction]Ordered By: Henry Gruber on 09-13-2022 Hematocrit (Bld) [Volume fraction] 29.7 % 40-54 [facility] Laboratory - Chemistry and C hemistry - challengeOrdered By: Henry Gruber on 09-13-2022 CO2 [Moles/Vol] 32.0 mmol/L 21.0-32.0 [facility] Urea nitrogen/Creatinine [Mass ratio] 23.9 mg/mg 10-20 [facility] Laboratory - Hematology and Cell countsOrdered By: Henry Gruber on 09-13-2022 Erythrocyte distribution width (RBC) [Entitic vol] 57.1 fL 35.1-43.9 [facility] Erythrocyte distribution width (RBC) [Ratio] 15.3 % 11.6-14.6 [facility] MCH (RBC) [Entitic mass] 34.7 pg 27.0-32.0 [facility] MCHC Auto (RBC) [Mass/Vol]Or dered By: Henry Gruber on 09-13-2022 MCHC (RBC) [Mass/Vol] 33.7 g/dL 32-36 [facility] No Panel InformationOrdered By: Henry Gruber on 09-13-2022 Estimated GFR (MDRD) Amer 286 mL/min >60 [facility] Comment on above: GFR Calc Estimated GFR (MDRD) Non-Af Amer 237 mL/min >60 [facility] Comment on above: Non- GFR Calc Platelets bldOrdered By: Pedro Gruber on 09-13-2022 Platelets (Bld) [#/Vol] 327 10*3/uL 150-450 [facility] Serum or plasma calcium bell urement (mass/volume)Ordered By: Henry Gruber on 09-13-2022 Calcium [Mass/Vol] 8.6 mg/dL 8.5-10.1 [facility] Serum or plasma creatinine m easurement (mass/volume)Ordered By: Henry Gruber on 09-13-2022 Creatinine [Mass/Vol] 0.38 mg/dL 0.70-1.30 [facility] Comment on above: The validity of the calculated GFR & GFRAA in patients over 70 years has not been determined. Clinical correlation is essential. Serum or plasma urea nitroge n measurement (mass/volume)Ordered By: Henry Gruber on 09-13-2022 Urea nitrogen [Mass/Vol] 9 mg/dL 11-23 [facility] Thin prep Papanicolaou smear with manual screeningOrdered By: Henry Gruber on 09-13-2022 Thin prep Papanicolaou smear with manual screening 7 - [facility] Basophil percentageOrdered B y: Henry Gruber on 09-06-2022 Bilirubin [Mass/Vol] 1.40 mg/dL 0.20-1.00 [facility] Comment on above: For patients on eltr ombopag therapy, use of Dimension [place] TBIL is not recommended. Chloride [Moles/Vol] 87 mmol/L 98-107 [facility] Cholesterol [Mass/Vol] 121 mg/dL <200 [facility] Comment on above: <200 mg/dL Desirable 200-240 mg/dL Borderline >240 mg/dL High Risk Glucose [Mass/Vol] 115 mg/dL 74-106 [facility] Comment on above: Fasting Glucose resu lt from 100 to 125 mg/dL suggests IMPAIRED HOMEOSTASIS per A.D.A. criteria. Potassium [Moles/Vol] 3.1 mmol/L 3.5-5.1 [facility] Protein [Mass/Vol] 6.2 g/dL 6.4-8.2 [facility] Sodium [Moles/Vol] 122 mmol/L 136-145 [facility] Triglyceride [Mass/Vol] 130 mg/dL <199 [facility] Comment on above: The drugs N-Acetylcy steine and Metamizole may falsely depress this assay.Serum Triglycerides Reference Interval Normal <150 mg/dL Borderline high 150 - 199 mg/dL High 200 - 499 mg/dL Very High > or = 500 mg/dL WBC (Bld) [#/Vol] 11.2 10*3/uL 4.4-11.0 [facility] Blood erythrocytes count (nu mber/volume)Ordered By: Henry Gruber on 09-06-2022 RBC (Bld) [#/Vol] 2.83 10*6/uL 4.6-6.2 [facility] Blood hemoglobin measurement (mass/volume)Ordered By: Henry Gruber on 09-06-2022 Hemoglobin (Bld) [Mass/Vol] 10.1 g/dL 13.0-16.5 [facility] Blood platelet mean volumeOr dered By: Henry Gruber on 09-06-2022 Platelet mean volume (Bld) [Entitic vol] 10.9 fL 6.2-12.0 [facility] Determination of erythrocyte mean corpuscular volume (MCV)Ordered By: Henry Gruber on 09-06-2022 MCV (RBC) [Entitic vol] 101.4 fL 80-94 [facility] Hematocrit Auto (Bld) [Volum e fraction]Ordered By: Henry Gruber on 09-06-2022 Hematocrit (Bld) [Volume fraction] 28.7 % 40-54 [facility] Laboratory - Chemistry and C hemistry - challengeOrdered By: Henry Gruber on 09-06-2022 ALP [Catalytic activity/Vol] 328 U/L 45-117 [facility] ALT [Catalytic activity/Vol] 92 U/L 16-61 [facility] CO2 [Moles/Vol] 27.0 mmol/L 21.0-32.0 [facility] Globulin (S) [Mass/Vol] 3.5 g/dL 2.2-4.2 [facility] Urea nitrogen/Creatinine [Mass ratio] 17.1 mg/mg 10-20 [facility] Laboratory - Hematology and Cell countsOrdered By: Henry Gruber on 09-06-2022 Erythrocyte distribution width (RBC) [Entitic vol] 57.7 fL 35.1-43.9 [facility] Erythrocyte distribution width (RBC) [Ratio] 15.6 % 11.6-14.6 [facility] MCH (RBC) [Entitic mass] 35.7 pg 27.0-32.0 [facility] MCHC Auto (RBC) [Mass/Vol]Or dered By: Henry Gruber on 09-06-2022 MCHC (RBC) [Mass/Vol] 35.2 g/dL 32-36 [facility] No Panel InformationOrdered By: Henry Gruber on 09-06-2022 Estimated GFR (MDRD) Amer 260 mL/min >60 [facility] Comment on above: GFR Calc Estimated GFR (MDRD) Non-Af Amer 215 mL/min >60 [facility] Comment on above: Non- GFR Calc Thyroid Stimulating Hormone (TSH) 10.20 uIU/mL 0.358-3.74 [facility] Vitamin D 25-Hydroxy 15.9 ng/mL [facility] Comment on above: Vitamin D 25(OH) Sta tus Range Deficiency <20 ng/mL (50nmol/L) Insufficiency 20 - 30 ng/mL (50 - 75 nmol/L) Sufficiency 30 - 100 ng/mL (75 - 250 nmol/L) Toxicity >100 ng/mL (>250 nmol/L) Platelets bldOrdered By: Pedro Gruber on 09-06-2022 Platelets (Bld) [#/Vol] 372 10*3/uL 150-450 [facility] Serum or plasma albumin bell urement (mass/volume)Ordered By: Henry Gruber on 09-06-2022 Albumin [Mass/Vol] 2.7 g/dL 3.2-5.0 [facility] Serum or plasma albumin/glob ulin mass ratioOrdered By: Henry Gruber on 09-06-2022 Albumin/Globulin [Mass ratio] 0.8 {ratio} 0.9-2.4 [facility] Serum or plasma calcium bell urement (mass/volume)Ordered By: Henry Gruber on 09-06-2022 Calcium [Mass/Vol] 8.3 mg/dL 8.5-10.1 [facility] Serum or plasma cholesterol in HDL measurement (mass/volume)Ordered By: Henry Gruber on 09-06-2022 Cholesterol in HDL [Mass/Vol] 39 mg/dL >40 [facility] Comment on above: The drugs N-Acetylcy steine and Metamizole may falsely depress this assay. Reference Range HDL <40 mg/dL Low HDL Cholesterol HDL >or= 60 mg/dL High HDL Cholesterol Serum or plasma cholesterol in VLDL measurement (mass/volume)Ordered By: Henry Gruber on 09-06-2022 Cholesterol in VLDL [Mass/Vol] 26 mg/dL 5-40 [facility] Serum or plasma creatinine m easurement (mass/volume)Ordered By: Henry Gruber on 09-06-2022 Creatinine [Mass/Vol] 0.41 mg/dL 0.70-1.30 [facility] Comment on above: The validity of the calculated GFR & GFRAA in patients over 70 years has not been determined. Clinical correlation is essential. Serum or plasma low density lipoprotein (LDL) cholesterol measurement (mass/volume)Ordered By: Henry Gruber on 09-06-2022 Cholesterol in LDL [Mass/Vol] 56 mg/dL 0-130 [facility] Serum or plasma urea nitroge n measurement (mass/volume)Ordered By: Henry Gruber on 09-06-2022 Urea nitrogen [Mass/Vol] 7 mg/dL 7-18 [facility] Thin prep Papanicolaou smear with manual screeningOrdered By: Henry Gruber on 09-06-2022 Thin prep Papanicolaou smear with manual screening 193 U/L 15-37 [facility] Thin prep Papanicolaou smear with manual screening 8 5-15 [facility] Whole blood hemoglobin A1c/t otal hemoglobin ratio (mass fraction)Ordered By: Henry Gruber on 09-06-2022 HbA1c (Bld) [Mass fraction] 5.9 % 3.8-5.6 [facility] Comment on above: Normal < 5.7 % Predi abetic 5.7 - 6.4 % Diabetic >or= 6.5 % Please note range changes. GLUCOSE-POCTon 09-04-2022 Glucose [Mass/Vol] 115 mg/dL High 74 - 99 [facility] Comment on above: Performed By: #### R ENAL #### [facility] [address] [place] [address] Glucose [Mass/Vol] 138 mg/dL High 74 - 99 [facility] Comment on above: Performed By: #### G ZOHREH #### [facility] [address] [place] [address] Laboratory - Chemistry and C hemistry - challengeon 09-04-2022 Glucose [Mass/Vol] 115 mg/dL above high threshold 74 - 99 [facility] Work Phone: Glucose [Mass/Vol] 138 mg/dL above high threshold 74 - 99 [facility] Work Phone: Order Reconciliationon 09-04 Order Reconciliation Page 1 Discharge Reconciliation Document Reconciliation Type: Discharge requested on behalf of Caesar Sal (Physician) done by Caesar Sal) Discharge - Reconciliation: 04-Sep-2022 09:06 by: Caesar Sal) Current OrdersDateHOME MEDICATIONS AT DISCHARGE DateReconciliation Comment/ Additional Information Allopurinol Tablet (ZYLOPRIM)DOSE = 300 mg Oral Every 24 Hours 29-Aug-2022 02:15 allopurinol 300 mg oral tablet 1 tab(s) orally every 24 hours 04-Sep-2022 09:03 Allopurinol is continued as allopurinol 300 mg oral tablet Atorvastatin Tablet (LIPITOR)DOSE = 40 mg Oral Daily 30-Aug-2022 07:43 atorvastatin 40 mg oral tablet 1 tab(s) orally once a day 04-Sep-2022 09:03 Atorvastatin is continued as atorvastatin 40 mg oral tablet Dextrose 5% in Water . 1,000 mL IntraVenous Infuse at: 100 mL/hrStop After 5 Hours 02-Sep-2022 16:47 Dextrose 5% in Water . is not required Dextrose 50% in Water Injectable DOSE = 25 gram(s) IntraVenous Push Every 15 Minutes, PRN Blood Glucose 70 mg/dL or LESS & HAS IV access;Clinician Notes: IF patient HAS a secure IV access & is Unconscious, Conscious, NPO or Unable to Eat or Drink. R 02-Sep-2022 10:20 Dextrose 50% in Water Injectable is not required Emollient Topical Cream (EUCERIN, CETAPHIL)DOSE = 1 application(s) Topical 3 Times a DayApply to Leg b/l 29-Aug-2022 01:53 emollients, topical cream 1 application topically 3 times a day - to Leg b/l 04-Sep-2022 09:03 Emollient Topical Cream is continued as emollients, topical cream Enoxaparin SubCutaneous (LOVENOX)DOSE = 40 mg SubCutaneous Every 24 Hours 29-Aug-2022 00:37 Enoxaparin SubCutaneous is not required Folic Acid TabletDOSE = 1 mg Oral Daily 28-Aug-2022 22:28 folic acid 1 mg oral tablet 1 tab(s) orally once a day 04-Sep-2022 09:04 Folic Acid is continued as folic acid 1 mg oral tablet Gabapentin Capsule (NEURONTIN)DOSE = 300 mg Oral 2 Times a Day 29-Aug-2022 11:18 gabapentin 300 mg oral capsule 1 cap(s) orally 2 times a day 04-Sep-2022 09:03 Gabapentin is continued as gabapentin 300 mg oral capsule Glucagon Injectable DOSE = 1 mg IntraMuscular Every 15 Minutes, PRN Blood Glucose 70 mg/dL or LESS & NO IV accessClinician Notes: IF patient DOES NOT have secure IV access & is Unconscious, Conscious, NPO or Unable to Eat or Drink. Repeat until BG r 02-Sep-2022 10:20 Glucagon Injectable is not required Insulin Lispro Mild Corrective Scale Give SubCutaneous 3 Times a Day Before Meals Hypoglycemia Protocol Call LIP unit(s) if Blood Glucose is between 0 - 70 0 unit(s) if Blood Glucose is between 71 - 150 2 unit(s) if Blood Glucose is between 02-Sep-2022 10:20 Insulin Lispro Mild Corrective Scale is not required Lactated Ringers Infusion IV Bag Volume = 1,000 mL Run at: 100 mL/hr IntraVenous Clinician Notes: Ana-operative order ONLY 30-Aug-2022 11:19 Lactated Ringers Infusion is not required Levothyroxine Tablet (SYNTHROID)DOSE = 75 microgram(s) Oral DailyClinician Notes: Enteral feedings are held 1 hour pre and post dose 30-Aug-2022 10:44 levothyroxine 75 mcg (0.075 mg) oral tablet 1 tab(s) orally once a day 04-Sep-2022 09:04 Levothyroxine is continued as levothyroxine 75 mcg (0.075 mg) oral tablet Lidocaine 4% TransDermal Film (ASPERFLEX)DOSE = 1 patch TransDermal Every 24 Hours, Apply to Right Knee 29-Aug-2022 11:18 Lidocaine 4% TransDermal is not required Multivitamin with Minerals TabletDOSE = 1 tablet(s) Oral Daily 28-Aug-2022 22:28 Multiple Vitamins with Minerals oral tablet 1 tab(s) orally once a day 04-Sep-2022 09:04 Multivitamin with Minerals is continued as Multiple Vitamins with Minerals oral tablet Ondansetron Injectable (ZOFRAN)DOSE = 4 mg IntraVenous Push Every 4 Hours, PRN Nausea and/or Vomiting 29-Aug-2022 00:37 Ondansetron Injectable is not required Pantoprazole Injectable (PROTONIX)DOSE = 40 mg IntraVenous Push Every 24 Hours 29-Aug-2022 08:32 Pantoprazole Injectable is not required Potassium Phosphate - Sodium Phosphate Packet Powder (PHOS-NAK)DOSE = 1 packet(s) Oral Every 6 HoursStop After 2 Doses 02-Sep-2022 09:33 Potassium Phosphate - Sodium Phosphate Packet is not required Psyllium Packet (METAMUCIL)DOSE = 1 packet(s) Oral 2 Times a Day 30-Aug-2022 14:42 psyllium 3.4 g/7 g oral powder for reconstitution orally 04-Sep-2022 09:04 Psyllium Packet is continued as psyllium 3.4 g/7 g oral powder for reconstitution Thiamine Injectable DOSE = 100 mg IntraVenous Push Daily 29-Aug-2022 00:28 thiamine 100 mg/mL injectable solution injectable 04-Sep-2022 09:04 Thiamine Injectable is continued as thiamine 100 mg/mL injectable solution Urea 40% Topical Cream (CARMOL)DOSE = 1 application(s) Topical 3 Times a DayApply to Leg b/l 29-Aug-2022 02:15 urea 40% topical cream 1 application topically 3 times a day - to Leg b/l 04-Sep-2022 09:03 Urea 40% Topical is continued as urea 40% topical cream Home Medications Added During Discharge Reconc (more content not included)... Normal [facility] RENAL FUNCTION PANELon 09-04 Albumin [Mass/Vol] 3.4 g/dL Normal 3.4 - 5.0 [facility] Comment on above: Performed By: #### M G #### [facility] [address] [place] [address] Anion gap [Moles/Vol] 10 mmol/L Normal 10 - 20 [facility] Comment on above: Performed By: #### M G #### [facility] [address] [place] [address] Calcium [Mass/Vol] 8.0 mg/dL Low 8.6 - 10.3 [facility] Comment on above: Performed By: #### M G #### [facility] [address] [place] [address] Chloride [Moles/Vol] 90 mmol/L Low 98 - 107 [facility] [place] Comment on above: Performed By: #### M G #### [facility] [address] [place] [address] Creatinine [Mass/Vol] 0.43 mg/dL Low 0.50 - 1.30 [facility] Comment on above: Performed By: #### M G #### [facility] [address] [place] [address] eGFR MALE >90 Normal >90 [facility] Comment on above: Result Comment: CALC ULATIONS OF ESTIMATED GFR ARE PERFORMED USING THE 2020 CKD-EPI STUDY REFIT EQUATION WITHOUT THE RACE VARIABLE FOR THE IDMS-TRACEABLE CREATININE METHODS. https://jasn.asnjournals.org/content/early//ASN.5817849 988 Performed By: #### M G #### [facility] [address] [place] [address] Glucose [Mass/Vol] 110 mg/dL High 74 - 99 [facility] Comment on above: Performed By: #### M G #### [facility] [address] [place] [address] HCO3 (Bld) [Moles/Vol] 32 mmol/L Normal 21 - 32 [facility] Comment on above: Performed By: #### M G #### [facility] [address] [place] [address] Phosphate [Mass/Vol] 2.2 mg/dL Low 2.5 - 4.9 [facility] [place] [facility] Comment on above: Result Comment: The performance characteristics of phosphorus testing in heparinized plasma have been validated by the individual laboratory site where testing is performed. Testing on heparinized plasma is not approved by the FDA; however, such approval is not necessary. Performed By: #### M G #### [facility] [address] [place] [address] Potassium [Moles/Vol] 3.6 mmol/L Normal 3.5 - 5.3 [facility] Comment on above: Performed By: #### M G #### [facility] [address] [place] [address] Sodium [Moles/Vol] 128 mmol/L Low 136 - 145 [facility] Comment on above: Performed By: #### M G #### [facility] [address] [place] [address] Urea nitrogen [Mass/Vol] 7 mg/dL Normal 6 - 23 [facility] Comment on above: Performed By: #### M G #### [facility] [address] [place] [address] Renal Function Panelon 09-04 Albumin BCP dye [Mass/Vol] 3.4 g/dL 3.4 - 5.0 [facility] Work Phone: Anion gap [Moles/Vol] 10 mmol/L 10 - 20 -[facility] Work Phone: Calcium [Mass/Vol] 8.0 mg/dL below low threshold 8.6 - 10.3 -[facility] Work Phone: Chloride [Moles/Vol] 90 mmol/L below low threshold 98 - 107 -[facility] Work Phone: CO2 [Moles/Vol] 32 mmol/L 21 - 32 -[facility] Work Phone: Creatinine [Mass/Vol] 0.43 mg/dL below low threshold See Below -[facility] Work Phone: Comment on above: Reference Range: 0.5 0 - 1.30 Glucose [Mass/Vol] 110 mg/dL above high threshold 74 - 99 -[facility] Work Phone: Phosphate [Mass/Vol] 2.2 mg/dL below low threshold 2.5 - 4.9 [facility] Work Phone: Comment on above: The performance fransisca acteristics of phosphorus testing in heparinized plasma have been validated by the individual laboratory site where testing is performed. Testing on heparinized plasma is not approved by the FDA; however, such approval is not necessary. Potassium [Moles/Vol] 3.6 mmol/L 3.5 - 5.3 [facility] Work Phone: Sodium [Moles/Vol] 128 mmol/L below low threshold 136 - 145 [facility] Work Phone: Urea nitrogen [Mass/Vol] 7 mg/dL 6 - 23 [facility] Work Phone: Renal Function Panel >90 >90 [facility] Work Phone: Comment on above: CALCULATIONS OF ROSANA MATED GFR ARE PERFORMED USING THE 2020 CKD-EPI STUDY REFIT EQUATION WITHOUT THE RACE VARIABLE FOR THE IDMS-TRACEABLE CREATININE METHODS.https://jasn.asnjournals.org/content//ASN .2433619652 CBCon 09-03-2022 Erythrocyte distribution width (RBC) [Ratio] 15.3 % High 11.5 - 14.5 [facility] Comment on above: Performed By: #### M G #### [facility] [address] [place] [address] Hematocrit (Bld) [Volume fraction] 29.0 % Low 41.0 - 52.0 [facility] Comment on above: Performed By: #### M G #### [facility] [address] [place] [address] Hemoglobin (Bld) [Mass/Vol] 10.1 g/dL Low 13.5 - 17.5 [facility] Comment on above: Performed By: #### M G #### [facility] [address] [place] [address] MCHC (RBC) [Mass/Vol] 34.8 g/dL Normal 32.0 - 36.0 [facility] Comment on above: Performed By: #### M G #### [facility] [address] [place] [address] MCV (RBC) [Entitic vol] 102 fL High 80 - 100 [facility] Comment on above: Performed By: #### M G #### [facility] [address] [place] [address] NUCLEATED RBC 0.2 /100 WBC Normal 0.0-0.0 [facility] Comment on above: Performed By: #### M G #### [facility] [address] [place] [address] Platelets (Bld) [#/Vol] 245 10*3/uL Normal 150 - 450 [facility] Comment on above: Performed By: #### M G #### [facility] [address] [place] [address] RBC 2.85 x10E12/L Low 4.50 - 5.90 [facility] Comment on above: Performed By: #### M G #### [facility] [address] [place] [address] WBC (Bld) [#/Vol] 9.0 10*3/uL Normal 4.4 - 11.3 [facility] Comment on above: Performed By: #### M G #### [facility] [address] [place] [address] Consult-Cardiac Surgeryon Consult-Cardiac Surgery Service: Service: Cardiac Surgery Consult: Consult requested by (Attending Name): Caesar Sal Reason: AAA ~5cm History of Present Illness: HPI: CHRISTOS LYONS is a 77 year old Male with a history of hypertension, hyperlipidemia, anemia, alcohol use disorder presents with worsening dysphagia, inability to tolerate p.o. over the past few days. CT chest performed with incidental finding of 4.7cm abdominal aneurysm. CT surgery consulted for evaluation of AA >4cm. Review Family/Social History and ROS: Social History: Alcohol Use: history of abuse Drug Use: unknown hx marijuana Cardiac: NEGATIVE: Chest Pain, Dyspnea on Exertion, Orthopnea, Palpitations, Syncope Skin: NEGATIVE: Mass, Pain, Pruritus, Rash, Ulcer Allergies: No Known Allergies: Objective: Objective Information: T PRBPMAPSpO2 [id number]/7295% Date/Time09/03 12: 12: 12: 12: 12:38 Range(36.1C - 36.8C ) (68 - 89 ) (16 - 18 ) (102 - 141 )/ (63 - 83 ) (92% - 100% ) Weights 09/02 13:36: Weight in kg (Weight (kg)) 70 09/02 13:36: Weight in lbs ((lbs)) 154.3 09/02 13:36: BMI (kg/m2) (BMI (kg/m2)) 20.948 Physical Exam by System: Constitutional: Elderly chronically ill appearing male sitting in bed, hard of hearing, NAD Respiratory/Thorax: Clear Cardiovascular: RRR Gastrointestinal: Soft, NTND, obese. No pulsatile or midline masses palpable Neurological: A&Ox4 Psychological: Appropriate Skin: Warm, dry Medications: Medications: Continuous Medications ------ 1. Lactated Ringers Infusion: 1000 mL IntraVenous Scheduled Medications ------ 1. Allopurinol: 300 mg Oral Every 24 Hours 2. Atorvastatin: 40 mg Oral Daily 3. Emollient Topical Cream: 1 application(s) Topical 3 Times a Day 4. Enoxaparin SubCutaneous: 40 mg SubCutaneous Every 24 Hours 5. Folic Acid: 1 mg Oral Daily 6. Gabapentin: 300 mg Oral 2 Times a Day 7. Insulin Lispro Mild Corrective Scale: unit(s) SubCutaneous 3 Times a Day Before Meals 8. Levothyroxine: 75 microgram(s) Oral Daily 9. Lidocaine 4% TransDermal: 1 patch TransDermal Every 24 Hours 10. Multivitamin with Minerals: 1 tablet(s) Oral Daily 11. Pantoprazole Injectable: 40 mg IntraVenous Push Every 24 Hours 12. Psyllium Packet: 1 packet(s) Oral 2 Times a Day 13. Thiamine Injectable: 100 mg IntraVenous Push Daily 14. Urea 40% Topical: 1 application(s) Topical 3 Times a Day PRN Medications ------ 1. Dextrose 50% in Water Injectable: 25 gram(s) IntraVenous Push Every 15 Minutes 2. Glucagon Injectable: 1 mg IntraMuscular Every 15 Minutes 3. Ondansetron Injectable: 4 mg IntraVenous Push Every 4 Hours Recent Lab Results: Results: I have reviewed these laboratory results: Complete Blood Count 03-Sep-2022 05:37:00 ResultValue White Blood Cell Count 9.0 Nucleated Erythrocyte Count 0.2 Red Blood Cell Count 2.85 L HGB 10.1 L HCT 29.0 L MCV 102 H MCHC 34.8 PLT 245 RDW-CV 15.3 H Renal Function Panel 03-Sep-2022 05:37:00 ResultValue Glucose, Serum 118 H NA 130 L K 3.3 L CL 89 L Bicarbonate, Serum 31 Anion Gap, Serum 13 BUN 8 CREAT 0.47 L GFR Male >90 Calcium, Serum 8.6 Phosphorus, Serum 1.9 L ALB 3.3 L Radiology Results: Results: Impression: Respiratory motion artifact slightly limits evaluation of lung parenchyma. There is slightly branching subpleural irregular nodular density laterally in theright upper lobe, measuring up to 2.0 by [...] pulmonary artery is dilated, suggesting pulmonary arterial hyperten (more content not included)... Normal [facility] Daily Progress Note-Medicine on 09-03-2022 Daily Progress Note-Medicine Service: Medicine Subjective Data: CHRISTOS LYONS is a 77 year old Male who is Hospital Day # 7. On room air, feels better, tolerating PO intake, brother bedside, afebrile, no overnight events reported. Objective Data: Objective Information: T PRBPMAPSpO2 [id number]/6695% Date/Time09/03 8: 8: 8: 8: 8:44 Range(36.1C - 36.8C ) (68 - 89 ) (16 - 18 ) (102 - 141 )/ (63 - 83 ) (92% - 100% ) Pain reported at 09/02 21:34: 0 = None ---- Intake and Output ----- Mn/Dy/Year TimeIntakeOutputNet Sep 02, 2022 2:00 [id number] The Intake and Output Totals for the last 24 hours are: IntakeOutputNet [id number] Physical Exam by System: Constitutional: no acute distress Respiratory/Thorax: fairly CTAB Cardiovascular: regular rhythm, no murmurs Gastrointestinal: Nontender, non distended. Extremities: trace edema in legs, b/l xerosis. Neurological: alert and oriented, moving all extremities Psychological: normal affect Skin: no rashes or lesions Recent Lab Results: Results: CBC: 09/03/2022 05:37 \ Hgb / \ 10.1 L / WBC Plt 9.0 245 / Hct \ / 29.0 L \ RBC: 2.85 L MCV: 102 H RFP: 09/03/2022 05:37 NA+ Cl- BUN / 130 L 89 L 8 / ------ Glucose - 118 H K+ HCO3- Creat \ 3.3 L 31 0.47 L \ Calcium : 8.6Anion Gap : 13 Albumin : 3.3 L Phos : 1.9 L Assessment and Plan: Code Status: Code StatusDNAR Assessment: 77 yoM with anorexia, dysphagia, malaise. Findings [...] Pt/ot Primary focus now is on mobility. Electronic Signatures: Caesar Sal) (Signed 03-Sep-2022 09:56) Authored: Service, Subjective Data, Objective Data, Assessment and Plan, Note Completion Last Updated: 03-Sep-2022 09:56 by Caesar Sal) Normal [facility] Daily Progress Note-Nephrolo gyon 09-03-2022 Daily Progress Note-Nephrology Service: Nephrology Subjective Data: CHRISTOS LYONS is a 77 year old Male who is Hospital Day # 7. Seen and examined. Working with therapy. No acute events, offers no new complaints. Chart/labs/meds/notes/imag ing/VS reviewed. Objective Data: Objective Information: T PRBPMAPSpO2 [id number]/7295% Date/Time09/03 12: 12: 12: 12: 12:38 Range(36.1C - 36.8C ) (68 - 89 ) (16 - 18 ) (102 - 141 )/ (63 - 83 ) (92% - 100% ) Pain reported at 09/02 21:34: 0 = None ---- Intake and Output ----- Mn/Dy/Year TimeIntakeOutputNet Sep 03, 2022 2:00 [id number] The Intake and Output Totals for the last 24 hours are: IntakeOutputNet [id number] Physical Exam by System: Constitutional: Well developed, awake/alert/oriented x3, no distress, alert and cooperative Eyes: PERRL, EOMI, clear sclera ENMT: mucous membranes moist Head/Neck: Neck supple, no JVD, trachea midline Respiratory/Thorax: Lungs are Clear to auscultation Cardiovascular: Regular, rate and rhythm, normal S 1and S 2 Gastrointestinal: Nondistended, soft, non-tender, no rebound tenderness or guarding Extremities: Anasarca, improving Neurological: Awake and alert Cranial nerves II through XII grossly intact Psychological: Appropriate mood and behavior Skin: Dry scaly skin of the lower extremities bilaterally Medication: Medications: Continuous Medications ------ 1. Lactated Ringers Infusion: 1000 mL IntraVenous Scheduled Medications ------ 1. Allopurinol: 300 mg Oral Every 24 Hours 2. Atorvastatin: 40 mg Oral Daily 3. Emollient Topical Cream: 1 application(s) Topical 3 Times a Day 4. Enoxaparin SubCutaneous: 40 mg SubCutaneous Every 24 Hours 5. Folic Acid: 1 mg Oral Daily 6. Gabapentin: 300 mg Oral 2 Times a Day 7. Insulin Lispro Mild Corrective Scale: unit(s) SubCutaneous 3 Times a Day Before Meals 8. Levothyroxine: 75 microgram(s) Oral Daily 9. Lidocaine 4% TransDermal: 1 patch TransDermal Every 24 Hours 10. Multivitamin with Minerals: 1 tablet(s) Oral Daily 11. Pantoprazole Injectable: 40 mg IntraVenous Push Every 24 Hours 12. Psyllium Packet: 1 packet(s) Oral 2 Times a Day 13. Thiamine Injectable: 100 mg IntraVenous Push Daily 14. Urea 40% Topical: 1 application(s) Topical 3 Times a Day PRN Medications ------ 1. Dextrose 50% in Water Injectable: 25 gram(s) IntraVenous Push Every 15 Minutes 2. Glucagon Injectable: 1 mg IntraMuscular Every 15 Minutes 3. Ondansetron Injectable: 4 mg IntraVenous Push Every 4 Hours Recent Lab Results: Results: CBC: 09/03/2022 05:37 \ Hgb / \ 10.1 L / WBC Plt 9.0 245 / Hct \ / 29.0 L \ RBC: 2.85 L MCV: 102 H RFP: 09/03/2022 05:37 NA+ Cl- BUN / 130 L 89 L 8 / ------ Glucose - 118 H K+ HCO3- Creat \ 3.3 L 31 0.47 L \ Calcium : 8.6Anion Gap : 13 Albumin : 3.3 L Phos : 1.9 L Radiology Results: Results: Impression: Respiratory motion artifact slightly limits evaluation of lung parenchyma. There is slightly branching subpleural irregular nodular density laterally in theright upper lobe, measuring up to 2.0 by [...] suggesting reflux esophagitis. Correlate clinically with GERD. Sma (more content not included)... Normal [facility] GLUCOSE-POCTon 09-03-2022 Glucose [Mass/Vol] 136 mg/dL High 74 - 99 [facility] Comment on above: Performed By: #### G ZOHREH #### [facility] [address] [place] [address] Glucose [Mass/Vol] 122 mg/dL High 74 - 99 [facility] Comment on above: Performed By: #### G ZOHREH ####[facility] [id number] [place] [address] Glucose [Mass/Vol] 147 mg/dL High 74 - 99 [facility] Comment on above: Performed By: #### G ZOHREH #### [facility] [address] [place] [address] Laboratory - Chemistry and C hemistry - challengeon 09-03-2022 Glucose [Mass/Vol] 136 mg/dL above high threshold 74 - 99 [facility] Work Phone: Glucose [Mass/Vol] 122 mg/dL above high threshold 74 - 99 [facility] Work Phone: Glucose [Mass/Vol] 147 mg/dL above high threshold 74 - 99 [facility] Work Phone: Laboratory - Hematology and Cell countson 09-03-2022 Erythrocyte distribution width (RBC) [Ratio] 15.3 % above high threshold See Below [facility] Work Phone: Comment on above: Reference Range: 11. 5 - 14.5 Hematocrit (Bld) [Volume fraction] 29.0 % below low threshold See Below [facility] Work Phone: Comment on above: Reference Range: 41. 0 - 52.0 Hemoglobin (Bld) [Mass/Vol] 10.1 g/dL below low threshold See Below [facility] Work Phone: Comment on above: Reference Range: 13. 5 - 17.5 MCHC (RBC) [Mass/Vol] 34.8 g/dL See Below [facility] Work Phone: Comment on above: Reference Range: 32. 0 - 36.0 MCV (RBC) [Entitic vol] 102 fL above high threshold 80 - 100 [facility] Work Phone: Platelets (Bld) [#/Vol] 245 10*3/uL 150 - 450 [facility] Work Phone: RBC (Bld) [#/Vol] 2.85 {x10E12/L} below low threshold See Below [facility] Work Phone: Comment on above: Reference Range: 4.5 0 - 5.90 WBC (Bld) [#/Vol] 9.0 10*3/uL 4.4 - 11.3 [facility] Work Phone: No Panel Informationon 09-03 0.2 {/100_WBC} 0.0-0.0 [facility] Work Phone: RENAL FUNCTION PANELon 09-03 Albumin [Mass/Vol] 3.3 g/dL Low 3.4 - 5.0 [facility] Comment on above: Performed By: #### R ENAL #### [facility] [address] [place] [address] Anion gap [Moles/Vol] 13 mmol/L Normal 10 - 20 [facility] Comment on above: Performed By: #### R ENAL #### [facility] [address] [place] [address] Calcium [Mass/Vol] 8.6 mg/dL Normal 8.6 - 10.3 [facility] Comment on above: Performed By: #### R ENAL #### [facility] [address] [place] [address] Chloride [Moles/Vol] 89 mmol/L Low 98 - 107 [facility] [facility] Comment on above: Performed By: #### R ENAL #### [facility] [address] [place] [address] Creatinine [Mass/Vol] 0.47 mg/dL Low 0.50 - 1.30 [facility] Comment on above: Performed By: #### R ENAL #### [facility] [address] [place] [address] eGFR MALE >90 Normal >90 [facility] Comment on above: Result Comment: CALC ULATIONS OF ESTIMATED GFR ARE PERFORMED USING THE 2020 CKD-EPI STUDY REFIT EQUATION WITHOUT THE RACE VARIABLE FOR THE IDMS-TRACEABLE CREATININE METHODS. https://jasn.asnjournals.org/content//ASN.8235694 988 Performed By: #### R ENAL #### [facility] [address] [place] [address] Glucose [Mass/Vol] 118 mg/dL High 74 - 99 [facility] Comment on above: Performed By: #### R ENAL #### [facility] [address] [place] [address] HCO3 (Bld) [Moles/Vol] 31 mmol/L Normal 21 - 32 [facility] Comment on above: Performed By: #### R ENAL #### [facility] [address] [place] [address] Phosphate [Mass/Vol] 1.9 mg/dL Low 2.5 - 4.9 [facility] Comment on above: Result Comment: The performance characteristics of phosphorus testing in heparinized plasma have been validated by the individual laboratory site where testing is performed. Testing on heparinized plasma is not approved by the FDA; however, such approval is not necessary. Performed By: #### R ENAL #### [facility] [address] [place] [address] Potassium [Moles/Vol] 3.3 mmol/L Low 3.5 - 5.3 [facility] Comment on above: Performed By: #### R ENAL #### [facility] [address] [place] [address] Sodium [Moles/Vol] 130 mmol/L Low 136 - 145 [facility] Comment on above: Performed By: #### R ENAL #### [facility] [address] [place] [id number] Urea nitrogen [Mass/Vol] 8 mg/dL Normal 6 - 23 [facility] Comment on above: Performed By: #### R ENAL #### [facility] [address] [place] [id number] Rehab Note-[employer] DYSPHAGIA WOLF ATMENTon 09-03-2022 Rehab Note-[employer] DYSPHAGIA TREATMENT Rehab: Info: Mode of TreatmentSLP DYSPHAGIA TREATMENT Time IN14:40 Time OUT15:07 Total Treatment [id number] Communicate/Swallow: Swallow Assessment/Intervention/Tr eatment OutcomePt seen for dysphagia treatment. Family members present at bedside. Pt upright in bed and reporting improvement in appetite. No swallowing difficulty reported. Pt edentulous with avoidance of raw vegetables only. Thin liquids consumed via self regulated straw sips. Bolus formation appeared timely. No overt s/s aspiration detected with voice and respirations remaining unchanged from baseline following boluses trialed. Reinforced achieving upright position for all oral intake to maximize swallowing safety. Feel pt able to continue present diet with adherence to swallowing guidelines. Pt scheduled for transfer to rehab facility. Discharge date unknown at time of visit. [employer] to follow during acute care stay. Question if [employer] services required post d/c. Electronic Signatures: Alysa Galvez ([employer]) (Signed 03-Sep-2022 15:14) Entered: Info, Communicate/Swallow, Short Term Goals Authored: Angel, Communicate/Swallow Last Updated: 03-Sep-2022 15:14 by Alysa Galvez ([employer]) Normal [facility] Rehab Note-attemptedon 09-03 Rehab Note-attempted Rehab: Info: DisciplineSPTA attempt tx Mode of Treatmentattempted Time IN13:22 Reason Treatment Not Performedpatient/family declined treatment; pt declined tx at this time stated I don't want to do it. pt also noted having bowel movements at this time, RN notified. Electronic Signatures: Prudencio Franco (SPTA) (Signed 03-Sep-2022 13:25) Authored: Nick Guadalupe (PT) (Signed 06-Sep-2022 09:41) Co-Signer: Davis Stanley (SLUBBER HAND) (Signed 03-Sep-2022 13:30) Authored: Angel Last Updated: 06-Sep-2022 09:41 by Nick De Jesus (PT) Normal [facility] Rehab Kmhq-ss-hpklcdjnytr Rehab Vmwd-ty-haxazamaz Rehab: Info: Disciplineoccupational therapist Mode of Treatmentco-treatment; occupational therapy Time IN15:05 Time OUT15:30 Total Treatment [id number] Total Minutes CommentCo-tx due to skilled technique required for safe functional transfer and to facilitate maximum participation. Patient in ... at end of sessionbed, 3 railings up; alarm on Communicated with ... at end of sessionbedside nurse; family in the room Patient Effortadequate Symptoms Noted During/After Treatmentfatigue Treatment Considerations/CommentsOT for additional attempt this date. Pt agreeing to participate at this time. Per handoff with nursing prior to therapy visit, pt with the following acute changes in condition: none Pt pain is being managed and vitals are stable. Additional concern for this patient are: fall risk telemetry, indwelling urethral catheter; significant flaking of dry skin Patient Response to TreatmentPt demonstrates progress this date and seemed to tolerate functional activity Patient/Family/Caregiver Comments/ObservationsI did well today standing Brother and nephew visiting pt Vision/Cognition: Affect/Mental Status (Cognitive)WFL Orientation Status (Cognition)oriented x 3 Mobility/Tone: Bed Mobility Assessment/Interventionssu pine to sit; sit to supine Zjkjhm-vf-Ibn Gilliam (Bed Mobility)moderate assist (50% patient effort); 2 person assist; verbal cues Fkc-wa-Socoml Gilliam (Bed Mobility)verbal cues; 2 person assist; moderate assist (50% patient effort) Assistive Device (Bed Mobility)bed rails; draw sheet Transfer Assessment/Interventionssi t to stand transfer; stand to sit transfer Comment, TransfersPt provided instruction verbally and demonstrated to pt for safe sit<->stand technique to promote completion of transfer. Pt required moderate verbal cues for proper hand placements, position of device and sequencing to complete sit<>stand. Sit-Stand Gilliam (Transfers)moderate assist (50% patient effort); 2 person assist; verbal cues Sit-Stand Assistive Device (Transfers)gait belt; walker, front-wheeled Stand-Sit Gilliam (Transfers)2 person assist; moderate assist (50% patient effort); verbal cues Stand-Sit Assistive Device (Transfers)gait belt; walker, front-wheeled Safety Issues Impacting Function (Mobility)positioning of assistive device; judgment; sequencing abilities Impairments Impacting Function (Mobility)strength; postural/trunk control; balance; endurance/activity tolerance; grasp; coordination Activityactivity promoted; sitting, edge of bed; standing, edge of bed; active ROM encouraged; ROM exercises performed Activityassistance, 2 people Activitywalker; gait belt Activityfatigue ADL: BADL Assessment/Interventiontoi leting; lower body dressing Gilliam Level (Lower Body Dressing)dependent (less than 25% patient effort) Gilliam Level (Toileting)dependent (less than 25% patient effort) Motor: Upper Extremity Range of Motion (Therapeutic Exercise)shoulder flexion/extension, bilateral; elbow flexion/extension, bilateral; forearm supination/pronation, bilateral; wrist flexion/extension, bilateral Hand (Therapeutic Exercise)finger flexion/extension, bilateral; thumb finger opposition, bilateral; hand home planning consultant salesperson, bilateral Upper Extremity (Therapeutic Exercise)With verbal instruction and continuous monitoring, pt completed BUE AROM exercises as indicated Pt completed 1 set of 4-6 reps in supine with HOB elevated to increase functional strength and activity tolerance to facilitate increased participation in ADLs. Verbal instruction and demo provided to ensure proper technique. Rest breaks required between exercises to manage fatigue. Education provided on importance of AROM throughout day to maximize function/ potential. Family member present for education Sitting, Static (Balance)fair balance Sitting, Dynamic (Balance)fair balance Aps-hq-Usnol (Balance)fair balance Standing, Static (Balance)poor balance Standing, Dynamic (Balance)poor balance Balance ActivitiesOnce seated EOB, pt able to participate in functional reaching activities for preparation for ADL tasks. Pt demo'd fair dynamic sitting balance with UB support, however decreased cross body reach Sensory: Pre-Treatment Pain Rating0/10 - no pain Post-Treatment Pain Rating0/10 - no pain Health: Observed Emotional Statecooperative Plan of Care Reviewed Withpatient; family Outcomes Tools: Putting on and taking off regular lower body clothingtotal Bathing (including washing, rinsing, drying)a lot Toileting, which includes using toilet, bedpan or urinaltotal Putting on and taking off regular upper body clothinga lot Taking care of personal grooming such as brushing teetha lot Eating Mealsa billy AM-PAC (OT) Total Score11 Short Term Goals: Bed Mobility: Date [id number] Bed Mobility: Gilliam Level Goalmaximum assist (25% patien (more content not included)... Normal [facility] Rehab Note-leather seasoner christopher 09-03-2022 Rehab Note-occupational therapist Rehab: Info: Disciplineoccupational therapist Mode of Treatmentattempted Time IN13:10 Reason Treatment Not Performedpatient/family declined treatment Treatment Considerations/CommentsOT for follow up treatment session per POC. Nursing cleared pt with no concerns. Upon arrival to room, pt in bed with HOB elevated to sitting position. Wet towels wrapped around both feet. Pt/family report it's for his dry feet, they are trying to get the dry skin off. Pt also reports that he was soiled from a BM. Pt educated on goals of treatment session and benefits of activity participating in his self-care to increase strength, endurance, and independence. Pt continued to decline and states I'm leaving today or this weekend. Attempts to encourage pt to actively participate in self care unsuccessful. No treatment session this date. Nurse unavailable on floor; updated via [employer]. Electronic Signatures: Ila Jacob (OT) (Signed 03-Sep-2022 13:46) Authored: Info Last Updated: 03-Sep-2022 13:46 by Ila Jacob (OT) Normal [facility] Rehab Note-physical therapy nurse - co-treatment with OTon 09-03-2022 Rehab Note-physical therapy nurse - co-treatment with OT Rehab: Info: Disciplinephysical physical therapy attendant; co-treatment with OT to enhance pt performance and safety Participated in performance of tx and documentation under the direct supervision of CI, student Prudencio WINN Mode of Treatmentphysical therapy; co-treatment Time IN15:05 Time OUT15:30 Total Treatment [id number] Patient in ... at end of sessionbed, 3 railings up; alarm on Communicated with ... at end of sessionbedside nurse; discussed pt's progress and current mobility as described in mobility section Patient Effortadequate Symptoms Noted During/After Treatmentfatigue Treatment Considerations/Commentstel e, indwelling urethral catheter Patient Response to TreatmentRN Joe'lucas seeing pt with no stated issues in past 24 hours that would be contraindicated prior to pt participating in therapy. Patient had adequate sanjana to tx this date, agreeable to participate in therapy this date. In bed upon entry. Patient/Family/Caregiver Comments/Observationsvisit ors in room at start of tx Mobility/Tone: Bed Mobility Assessment/Interventionssu pine to sit; sit to supine; scooting/bridging; bed mobility activities Gilliam (Bed Mobility)2 person assist; set up; verbal cues; moderate assist (50% patient effort) Scoot/Bridge Gilliam (Bed Mobility)2 person assist; set up; verbal cues; dependent (less than 25% patient effort) Kfyjfy-qp-Dms Gilliam (Bed Mobility)moderate assist (50% patient effort); 2 person assist; verbal cues; set up Ayv-mo-Praykx Gilliam (Bed Mobility)verbal cues; set up; 2 person assist; moderate assist (50% patient effort) Assistive Device (Bed Mobility)bed rails; draw sheet Comment, Bed Mobilitypt able to complete bed mobility requiring Mod A-Max A and Vc for sequencing and usage of bed rails for advancing BLE to EOB. pt demo's ability to initiate BLE advancement to EOB sitting but unable to complete without assistance Transfer Assessment/Interventionssi t to stand transfer; stand to sit transfer Comment, Transferspt able to complete trials with Mod A and Vc for sequencing, hand placement and CORDELIA under COG. pt demos with anterior lean upon standing. pt encourage to lateral shift to left with Mod A for placement of RLE under COG once standing Sit-Stand Gilliam (Transfers)moderate assist (50% patient effort); 2 person assist; verbal cues; set up Sit-Stand Assistive Device (Transfers)gait belt; walker, front-wheeled Stand-Sit Gilliam (Transfers)2 person assist; moderate assist (50% patient effort); verbal cues; set up Stand-Sit Assistive Device (Transfers)gait belt; walker, front-wheeled Safety Issues Impacting Function (Mobility)impulsivity; safety precaution awareness; positioning of assistive device; judgment; sequencing abilities; ability to follow commands Impairments Impacting Function (Mobility)strength; postural/trunk control; balance; endurance/activity tolerance; grasp; motor control; coordination Motor: Sitting, Static (Balance)fair balance Sitting, Dynamic (Balance)fair balance Wue-mx-Sntjg (Balance)fair balance Standing, Static (Balance)poor balance Standing, Dynamic (Balance)poor balance Balance Activitiespt able to maintaining static and dynamic sitting balance requiring Mod A to Min A ~15 minutes with Vc's for usage of BUE to assist with upright posture. pt requires Mod A x2 for static standing ~1.5 min x2 Sensory: Pre-Treatment Pain Rating0/10 - no pain Post-Treatment Pain Rating0/10 - no pain TherEx: Therapeutic Exercisept instructed in and performed long sitting ankle pumps 10x1, BLE LAQ seated EOB 10x each Commentspt required AAROM to complete LAQ d/t muscle weakness. Vc for proper technique Outcomes Tools: Turning from your back to your side while in a flat bed without using bedrails a lot Moving from lying on your back to sitting on the side of a flat bed without using bedrailsa lot Moving to and from bed to chair (including a wheelchair)a lot Standing up from a chair using your arms (e.g. wheelchair or bedside chair)a lot To walk in hospital roomtotal Climbing 3-5 steps with railingtotal AM-PAC (PT) Total Score10 Short Term Goals: Bed Mobility: Date [id number] Bed Mobility: Gilliam Level Goalminimum assist (75% patients effort) Bed Mobility: Time Frame for Goal2 wks Transfer: Established [id number] Transfer: Transfer Type Fpfclmd-ct-grccw/chair-to- bed; wpj-wq-cxymz/vjabw-va-qwq Transfer: Gilliam Level Goalminimum assist (75% patients effort) Transfer: Assistive Device Goalrolling walker Transfer: Time Frame for Goal2 wks Gait: Established [id number] Gait: Gilliam Level Goalmodified independent Gait: Assistive Device Goalrolling walker Gait: Distance Goalx 20ft Gait: Time Frame for Goal2 wks Education: Education - TopicImportance and benefits of antiembolic exercises DC Recommendations: Discharge Recommendation ( (more content not included)... Normal [facility] Renal Function Panelon 09-03 Albumin BCP dye [Mass/Vol] 3.3 g/dL below low threshold 3.4 - 5.0 [facility] Work Phone: Anion gap [Moles/Vol] 13 mmol/L 10 - 20 -[facility] Work Phone: Calcium [Mass/Vol] 8.6 mg/dL 8.6 - 10.3 MP-[facility] Work Phone: Chloride [Moles/Vol] 89 mmol/L below low threshold 98 - 107 -[facility] Work Phone: CO2 [Moles/Vol] 31 mmol/L 21 - 32 -[facility] Work Phone: Creatinine [Mass/Vol] 0.47 mg/dL below low threshold See Below [facility] Work Phone: Comment on above: Reference Range: 0.5 0 - 1.30 Glucose [Mass/Vol] 118 mg/dL above high threshold 74 - 99 -[facility] Work Phone: Phosphate [Mass/Vol] 1.9 mg/dL below low threshold 2.5 - 4.9 -[facility] Work Phone: Comment on above: The performance fransisca acteristics of phosphorus testing in heparinized plasma have been validated by the individual laboratory site where testing is performed. Testing on heparinized plasma is not approved by the FDA; however, such approval is not necessary. Potassium [Moles/Vol] 3.3 mmol/L below low threshold 3.5 - 5.3 -[facility] Work Phone: Sodium [Moles/Vol] 130 mmol/L below low threshold 136 - 145 -[facility] Work Phone: Urea nitrogen [Mass/Vol] 8 mg/dL 6 - 23 -[facility] Work Phone: Renal Function Panel >90 >90 MP-U niv [facility] Work Phone: Comment on above: CALCULATIONS OF ROSANA MATED GFR ARE PERFORMED USING THE 2020 CKD-EPI STUDY REFIT EQUATION WITHOUT THE RACE VARIABLE FOR THE IDMS-TRACEABLE CREATININE METHODS.https://jasn.asnjournals.org/content//ASN .[email or web address] CBCon 09-02-2022 Erythrocyte distribution width (RBC) [Ratio] 15.0 % High 11.5 - 14.5 [facility] Comment on above: Performed By: #### M G #### [facility] [address] [place] [id number] Hematocrit (Bld) [Volume fraction] 30.2 % Low 41.0 - 52.0 [facility] Comment on above: Performed By: #### M G #### [facility] [address] [place] [address] Hemoglobin (Bld) [Mass/Vol] 10.7 g/dL Low 13.5 - 17.5 [facility] Comment on above: Performed By: #### M G #### [facility] [address] [place] [id number] MCHC (RBC) [Mass/Vol] 35.4 g/dL Normal 32.0 - 36.0 [facility] Comment on above: Performed By: #### M G #### [facility] [address] [place] [address] MCV (RBC) [Entitic vol] 100 fL Normal 80 - 100 [facility] Comment on above: Performed By: #### M G #### [facility] [address] [place] [id number] NUCLEATED RBC 0.2 /100 WBC Normal 0.0-0.0 [facility] Comment on above: Performed By: #### M G #### [facility] [address] [place] [address] Platelets (Bld) [#/Vol] 187 10*3/uL Normal 150 - 450 [facility] Comment on above: Performed By: #### M G #### [facility] [address] [id number] RBC 3.02 x10E12/L Low 4.50 - 5.90 [facility] Comment on above: Performed By: #### M G #### [facility] [address] [place] [address] WBC (Bld) [#/Vol] 9.1 10*3/uL Normal 4.4 - 11.3 [facility] Comment on above: Performed By: #### M G #### [facility] [address] [place] [address] Clinical Event Note-EGD resu ltson 09-02-2022 Clinical Event Note-EGD results Clinical Event: Clinical Event Note: TopicEGD results Details EGD performed. Possible mild casie esophagitis - brushings were performed. There was no esophageal stricturing. Erosive gastritis - H. Pylori gastric biopsies performed. Normal duodenum. Recommendation: Twice daily PPI therapy for 4 weeks. If brushings positive for casie then will need 10 day treatment with fluconazole. Will sign off, please call with questions. Electronic Signatures: Matt Prince) (Signed 02-Sep-2022 14:47) Authored: Clinical Event Note Last Updated: 02-Sep-2022 14:47 by Matt Prince) Normal [facility] Consult-Podiatryon 3 Consult-Podiatry Service: Service: Podiatry Consult: Consult requested by (Attending Name): Caesar Sal Reason: b/l LE skin changes History of Present Illness: HPI: CHRISTOS LYONS is a 77 year old Male with a past medical history of hypertension, hyperlipidemia, anemia, alcohol use disorder, BPH, anxiety, hypothyroidism, gouty arthritis who presented to [facility] complaining of worsening dysphagia to solid foods and malaise. Brother present in room during interview and evaluation. Podiatry was consulted for skin changes noted to the lower extremities bilaterally. Patient stated the legs are less red than what they were before. Brother noted that the patient's was going to have a knee replacement before the COVID pandemic occurred the surgery was postponed/canceled. In the last 2 years patient has been largely confined to his chair per brother. Patient and brother both stated that he has had a lot of dry skin for the last year or so. Patient denies any other constitutional symptoms at this time. No other complaints. A 10 point review of systems was unremarkable unless noted above in HPI. Review Family/Social History and ROS: Review Family/Social History and ROS: Family History: reviewed and not pertinent to presenting problem Family History: Son has diabetes mellitus type 2 and CHF Alcohol Use: daily Drug Use: denies History and Physical from Aug 29, 2022 Constitutional Patient is POSITIVE for Malaise and NEGATIVE for Fever, Chills, Anorexia, Weight Loss, Eyes Patient is NEGATIVE for Blurry Vision, Drainage, Diploplia, Redness, Vision Loss/ Change ENMT Patient is NEGATIVE for Nasal Discharge, Nasal Congestion, Ear Pain, Mouth Pain, Throat Pain Respiratory Patient is NEGATIVE for Dry Cough, Productive Cough, Hemoptysis, Wheezing, Shortness of Breath Cardiac Patient is NEGATIVE for Chest Pain, Dyspnea on Exertion, Orthopnea, Syncope Gastrointestinal Patient is NEGATIVE for Nausea, Vomiting, Diarrhea, Constipation, Abdominal Pain, COMMENTS: Dysphagia to solid food Genitourinary Patient is NEGATIVE for Discharge, Dysuria, Flank Pain, Frequency, Hematuria Musculoskeletal Patient is NEGATIVE for Decreased ROM, Pain, Swelling, Stiffness, Weakness Neurological Patient is NEGATIVE for Dizziness, Confusion, Headache, Seizures, Syncope Psychiatric Patient is NEGATIVE for Mood Changes, Anxiety, Hallucinations, Sleep Changes, Suicidal Ideas Skin Patient is NEGATIVE for Mass, Pain, Pruritus, Rash, Ulcer Endocrine Patient is NEGATIVE for Heat Intolerance, Cold Intolerance, Sweat, Polyuria, Thirst Hematologic/Lymph Patient is NEGATIVE for Anemia, Bruising, Easy Bleeding, Night Sweats, Petechiae Allergic/Immunologic Patient is NEGATIVE for Anaphylaxis, Itchy/ Teary Eyes, Itching, Sneezing, Swelling Breast Patient is NEGATIVE for Pain, Mass, Discharge, Nipple Itching, Gynecomastia All other systems reviewed and are negative Allergies: No Known Allergies: Objective: Objective Information: T PRBPMAPSpO2 [id number]/7194% Date/Time09/02 8: 8: 8: 8: 8:09 Range(36.5C - 37C ) (61 - 74 ) (16 - 17 ) (102 - 137 )/ (55 - 80 ) (93% - 96% ) Highest temp of 37 C was recorded at 09/01 19:51 Pain reported at 09/02 5:12: 0 = None ---- Intake and Output ----- [facility] Sep 02, 2022 6:00 [id number] Sep 01, 2022 10:00 [id number] Sep 01, 2022 2:00 [id number] The Intake and Output Totals for the last 24 hours are: [facility] [id number] ---Intake--- Enteral - Oral PO Fluid/Feed (oral): 1666 mL ---Output--- Urine Voided (mL): 2050 mL External Catheter: 1900 mL Stool Stool: 1 mL Intake Output Enteral - Oral 1666 mL Urine 3950 mL Stool 1 mL Physical Exam Narrative: Physical Exam: General: AOx3, alert and cooperative, nondistressed. Vascular: DP and PT pulses palpable; extremity warm to cool proximal to distal B/L, +2 pitting edema anterior leg bilaterally Neuro: Gross sensation intact, light touch intact MSK: Gross motor function intact; gait not assessed Derm: Dull jyoti colored skin to the anterior and medial aspect of the legs bilaterally likely due to hemosiderin deposition from chronic venous congestion. Significant dry flaky skin to the feet and legs bilaterally. No signs of infection. No open lesions. Nails are elongated, thick and yellow 1-5 B/L. Webspaces are clean, dry and intact w/o debris. Medications: Medications: Continuous Medications ------ 1. Lactated Ringers Infusion: 1000 mL IntraVenous Scheduled Medications ------ 1. Allopurinol: 300 mg Oral Every 24 Hours 2. Atorvastatin: 40 mg Oral Daily 3. Emollient Topical Cream: 1 application(s) Topical 3 Times a Day 4. Enoxaparin SubCutaneous: 40 mg SubCut (more content not included)... Normal [facility] Daily Progress Note-Medicine on 09-02-2022 Daily Progress Note-Medicine Service: Medicine Subjective Data: CHRISTOS LYONS is a 77 year old Male who is Hospital Day # 6. On room air, no withdrawal symptoms. Afebrile. Diarrhea improving, had soft stool. Brother bedside. Pt overall feels better but mobility is very weak. Objective Data: Objective Information: T PRBPMAPSpO2 [id number]/7194% Date/Time09/02 8: 8: 8: 8: 8:09 Range(36.5C - 37C ) (61 - 74 ) (16 - 17 ) (102 - 137 )/ (55 - 80 ) (93% - 96% ) Highest temp of 37 C was recorded at 09/01 19:51 Pain reported at 09/02 5:12: 0 = None ---- Intake and Output ----- Mn/Dy/Year [facility]Int[facility]Out[facility] Sep 02, 2022 6:00 [id number] Sep 01, 2022 10:00 [id number] Sep 01, 2022 2:00 [id number] The Intake and Output Totals for the last 24 hours are: [facility]Out[facility] [id number] Physical Exam by System: Constitutional: no acute distress Respiratory/Thorax: fairly CTAB Cardiovascular: regular rhythm, no murmurs Gastrointestinal: Nontender, non distended. Extremities: trace edema in legs Neurological: alert and oriented, moving all extremities Psychological: normal affect Skin: no rashes or lesions Recent Lab Results: Results: CBC: 09/02/2022 07:01 \ Hgb / \ 10.7 L / WBC Plt 9.1 187 / Hct \ / 30.2 L \ RBC: 3.02 L MCV: 100 RFP: 09/02/2022 07:01 NA+ Cl- BUN / 131 L 90 L 7 / ------ Glucose - 160 H K+ HCO3- Creat \ 3.2 L 31 0.44 L \ Calcium : 8.6Anion Gap : 13 Albumin : 3.5 Phos : 1.6 L Assessment and Plan: Code Status: Code StatusDNAR Assessment: 77 yoM with anorexia, dysphagia, malaise. Findings [...] DTs... will dc ciwa DM well controlled Electronic Signatures: Caesar Sal) (Signed 02-Sep-2022 10:20) Authored: Service, Subjective Data, Objective Data, Assessment and Plan, Note Completion Last Updated: 02-Sep-2022 10:20 by Caesar Sal) Normal [facility] Daily Progress Note-Nephrolo adamon 09-02-2022 Daily Progress Note-Nephrology Service: Nephrology Subjective Data: CHRISTOS LYONS is a 77 year old Male who is Hospital Day # 6. Seen and examined. Status post endoscopy. Resting comfortably bed. No acute events, offers no new complaints. Chart/labs/meds/notes/imag ing/VS reviewed. Objective Data: Objective Information: T PRBPMAPSpO2 [id number]/6395% Date/Time09/02 16: 16: 16: 16: 16:25 Range(36.1C - 37C ) (61 - 74 ) (16 - 17 ) (102 - 141 )/ (55 - 80 ) (93% - 96% ) Highest temp of 37 C was recorded at 09/01 19:51 Pain reported at 09/02 15:13: 0 = None ---- Intake and Output ----- Mn/Dy/Year TimeIntakeOutputNet Sep 02, 2022 2:00 [id number] Sep 02, 2022 6:00 [id number] Sep 01, 2022 10:00 [id number] The Intake and Output Totals for the last 24 hours are: IntakeOutputNet [id number] Physical Exam by System: Constitutional: Well developed, awake/alert/oriented x3, no distress, alert and cooperative Eyes: PERRL, EOMI, clear sclera ENMT: mucous membranes moist Head/Neck: Neck supple, no JVD, trachea midline Respiratory/Thorax: Lungs are Clear to auscultation Cardiovascular: Regular, rate and rhythm, normal S 1and S 2 Gastrointestinal: Nondistended, soft, non-tender, no rebound tenderness or guarding Extremities: Anasarca, improving Neurological: Awake and alert Cranial nerves II through XII grossly intact Psychological: Appropriate mood and behavior Skin: Dry scaly skin of the lower extremities bilaterally Medication: Medications: Continuous Medications ------ 1. Lactated Ringers Infusion: 1000 mL IntraVenous Scheduled Medications ------ 1. Allopurinol: 300 mg Oral Every 24 Hours 2. Atorvastatin: 40 mg Oral Daily 3. Emollient Topical Cream: 1 application(s) Topical 3 Times a Day 4. Enoxaparin SubCutaneous: 40 mg SubCutaneous Every 24 Hours 5. Folic Acid: 1 mg Oral Daily 6. Gabapentin: 300 mg Oral 2 Times a Day 7. Insulin Lispro Mild Corrective Scale: unit(s) SubCutaneous 3 Times a Day Before Meals 8. Levothyroxine: 75 microgram(s) Oral Daily 9. Lidocaine 4% TransDermal: 1 patch TransDermal Every 24 Hours 10. Multivitamin with Minerals: 1 tablet(s) Oral Daily 11. Pantoprazole Injectable: 40 mg IntraVenous Push Every 24 Hours 12. Potassium Chloride Powder Packet: 40 mEq Oral Once 13. Psyllium Packet: 1 packet(s) Oral 2 Times a Day 14. Thiamine Injectable: 100 mg IntraVenous Push Daily 15. Urea 40% Topical: 1 application(s) Topical 3 Times a Day PRN Medications ------ 1. Dextrose 50% in Water Injectable: 25 gram(s) IntraVenous Push Every 15 Minutes 2. Glucagon Injectable: 1 mg IntraMuscular Every 15 Minutes 3. Ondansetron Injectable: 4 mg IntraVenous Push Every 4 Hours Recent Lab Results: Results: CBC: 09/02/2022 07:01 \ Hgb / \ 10.7 L / WBC Plt 9.1 187 / Hct \ / 30.2 L \ RBC: 3.02 L MCV: 100 RFP: 09/02/2022 07:01 NA+ Cl- BUN / 131 L 90 L 7 / ------ Glucose - 160 H K+ HCO3- Creat \ 3.2 L 31 0.44 L \ Calcium : 8.6Anion Gap : 13 Albumin : 3.5 Phos : 1.6 L Radiology Results: Results: Impression: Respiratory motion artifact slightly limits evaluation of lung parenchyma. There is slightly branching subpleural irregular nodular density laterally in theright upper lobe, measuring up to 2.0 by [...] the proximal segmental level, noting that technique (more content not included)... Normal [facility] GLUCOSE-POCTon 09-02-2022 Glucose [Mass/Vol] 125 mg/dL High 74 - 99 [facility] Comment on above: Performed By: #### G ZOHREH #### [facility] [address] [place] [address] Glucose [Mass/Vol] 136 mg/dL High 74 - 99 [facility] Comment on above: Performed By: #### G ZOHREH #### [facility] [address] [place] [address] Laboratory - Chemistry and C hemistry - challengeon 09-02-2022 Glucose [Mass/Vol] 125 mg/dL above high threshold 74 - 99 [facility] Work Phone: Glucose [Mass/Vol] 136 mg/dL above high threshold 74 - 99 [facility] Work Phone: Laboratory - Hematology and Cell countson 09-02-2022 Erythrocyte distribution width (RBC) [Ratio] 15.0 % above high threshold See Below [facility] Work Phone: Comment on above: Reference Range: 11. 5 - 14.5 Hematocrit (Bld) [Volume fraction] 30.2 % below low threshold See Below [facility] Work Phone: Comment on above: Reference Range: 41. 0 - 52.0 Hemoglobin (Bld) [Mass/Vol] 10.7 g/dL below low threshold See Below [facility] Work Phone: Comment on above: Reference Range: 13. 5 - 17.5 MCHC (RBC) [Mass/Vol] 35.4 g/dL See Below [facility] Work Phone: Comment on above: Reference Range: 32. 0 - 36.0 MCV (RBC) [Entitic vol] 100 fL 80 - 100 [facility] Work Phone: Platelets (Bld) [#/Vol] 187 10*3/uL 150 - 450 [facility] Work Phone: RBC (Bld) [#/Vol] 3.02 {x10E12/L} below low threshold See Below [facility] Work Phone: Comment on above: Reference Range: 4.5 0 - 5.90 WBC (Bld) [#/Vol] 9.1 10*3/uL 4.4 - 11.3 [facility] Work Phone: No Panel Informationon 09-02 [facility] Work Phone: [email or web address]} [facility] Work Phone: [facility] Work Phone: 0.2 {/100_WBC} 0.0-0.0 [facility] Work Phone: [facility] Work Phone: PHOSPHORUSon 09-02-2022 PHOSPHORUS Canceled Normal [facility] Comment on above: Order Comment: TEST PHOSPHORUS WAS CANCELLED, 09/02/2022 01:01 No specimen sent. Result Comment: The performance characteristics of phosphorus testing in heparinized plasma have been validated by the individual laboratory site where testing is performed. Testing on heparinized plasma is not approved by the FDA; however, such approval is not necessary. Performed By: #### G ZOHREH #### [facility] [address] [place] [address] RENAL FUNCTION PANELon 09-02 Albumin [Mass/Vol] 3.5 g/dL Normal 3.4 - 5.0 [facility] Comment on above: Performed By: #### M G #### [facility] [address] [place] [address] Anion gap [Moles/Vol] 13 mmol/L Normal 10 - 20 [facility] Comment on above: Performed By: #### M G #### [facility] [address] [place] [address] Calcium [Mass/Vol] 8.6 mg/dL Normal 8.6 - 10.3 [facility] Comment on above: Performed By: #### M G #### [facility] [address] [place] [address] Chloride [Moles/Vol] 90 mmol/L Low 98 - 107 [facility] [place] Comment on above: Performed By: #### M G #### [facility] [address] [place] [address] Creatinine [Mass/Vol] 0.44 mg/dL Low 0.50 - 1.30 [facility] Comment on above: Performed By: #### M G #### [facility] [address] [place] [address] eGFR MALE >90 Normal >90 [facility] Comment on above: Result Comment: CALC ULATIONS OF ESTIMATED GFR ARE PERFORMED USING THE 2020 CKD-EPI STUDY REFIT EQUATION WITHOUT THE RACE VARIABLE FOR THE IDMS-TRACEABLE CREATININE METHODS. https://jasn.asnjournals.org/content/early//ASN.4341627 988 Performed By: #### M G #### [facility] [address] [place] [address] Glucose [Mass/Vol] 160 mg/dL High 74 - 99 [facility] Comment on above: Performed By: #### M G #### [facility] [address] [place] [address] HCO3 (Bld) [Moles/Vol] 31 mmol/L Normal 21 - 32 [facility] Comment on above: Performed By: #### M G #### [facility] [address] [place] [address] Phosphate [Mass/Vol] 1.6 mg/dL Low 2.5 - 4.9 [facility] [place] Comment on above: Result Comment: The performance characteristics of phosphorus testing in heparinized plasma have been validated by the individual laboratory site where testing is performed. Testing on heparinized plasma is not approved by the FDA; however, such approval is not necessary. Performed By: #### M G #### [facility] [address] [place] [address] Potassium [Moles/Vol] 3.2 mmol/L Low 3.5 - 5.3 [facility] Comment on above: Performed By: #### M G #### [facility] [address] [place] [address] Sodium [Moles/Vol] 131 mmol/L Low 136 - 145 [facility] Comment on above: Performed By: #### M G #### [facility] [address] [place] [address] Urea nitrogen [Mass/Vol] 7 mg/dL Normal 6 - 23 [facility] Comment on above: Performed By: #### M G #### [facility] [address] [place] [address] Rehab Note-speech language p athologiston 09-02-2022 Rehab Note-speech language pathologist Rehab: Info: Disciplinespeech language pathologist Mode of Treatmentattempted Patient/Family/Caregiver Comments/ObservationsSpeec h therapy deferred at this time due to scheduled procedure. Short Term Goals: Bed Mobility: Date [id number] Bed Mobility: Gilliam Level Goalmaximum assist (25% patients effort) Bed Mobility: Physical Assist Level Goal1-person assist Bed Mobility: Time Frame for Goal2 wks Transfer: Established Transfer: Transfer Type Goaltoilet Transfer: Gilliam Level Goalmaximum assist (25% patients effort) Transfer: Physical Assist Level Goal1-person assist Transfer: Time Frame for Goal2 wks Balance: Established Balance: Goal DetailsPt will tolerate sitting EOB >15 min at SBA during functional tasks and ADLs without LOB and while maintaining trunk and head in upright, midline position. Balance: Time Frame for Goal2 wks Standing Tolerance: Established Standing Tolerance: Goal DetailsPt will increase supported standing tolerance to >5 min with MAX A x1 using LRAD during functional mobility/ADLs in order to improve activity tolerance and balance for self-care tasks. Standing Tolerance: Time Frame for Goal2 wks Grooming: Established Grooming: Gilliam Level Goalmodified independent Grooming: Physical Assist Level Goal1-person assist Grooming: Time Frame for Goal2 wks Upper Body Dressing: Established Upper Body Dressing: Gilliam Level Goalmoderate assist (50% patients effort) Upper Body Dressing: Physical Assist Level Goal1-person assist Upper Body Dressing: Time Frame for Goal2 wks Lower Body Dressing: Established Lower Body Dressing: Gilliam Level Goalmaximum assist (25% patients effort) Lower Body Dressing: Physical Assist Level Goal1-person assist Lower Body Dressing: Time Frame for Goal2 wks Toileting: Established Toileting: Gilliam Level Goalmaximum assist (25% patients effort) Toileting: Physical Assist Level Goal1-person assist Toileting: Time Frame for Goal2 wks Electronic Signatures: Wanda Manzano ([employer]) (Signed 02-Sep-2022 13:50) Authored: Info, Short Term Goals Last Updated: 02-Sep-2022 13:50 by Wanda Manzano ([employer]) Normal [facility] Renal Function Panelon 09-02 Albumin BCP dye [Mass/Vol] 3.5 g/dL 3.4 - 5.0 [facility] Work Phone: Anion gap [Moles/Vol] 13 mmol/L 10 - 20 [facility] Work Phone: Calcium [Mass/Vol] 8.6 mg/dL 8.6 - 10.3 [facility] [employer] Work Phone: Chloride [Moles/Vol] 90 mmol/L below low threshold 98 - 107 [facility] [employer] Work Phone: CO2 [Moles/Vol] 31 mmol/L 21 - 32 [facility] [employer] Work Phone: Creatinine [Mass/Vol] 0.44 mg/dL below low threshold See Below [facility] [employer] Work Phone: Comment on above: Reference Range: 0.5 0 - 1.30 Glucose [Mass/Vol] 160 mg/dL above high threshold 74 - 99 [facility] [employer] Work Phone: Phosphate [Mass/Vol] 1.6 mg/dL below low threshold 2.5 - 4.9 [facility] [employer] Work Phone: Comment on above: The performance fransisca acteristics of phosphorus testing in heparinized plasma have been validated by the individual laboratory site where testing is performed. Testing on heparinized plasma is not approved by the FDA; however, such approval is not necessary. Potassium [Moles/Vol] 3.2 mmol/L below low threshold 3.5 - 5.3 -[facility] Work Phone: Sodium [Moles/Vol] 131 mmol/L below low threshold 136 - 145 -[facility] Work Phone: Urea nitrogen [Mass/Vol] 7 mg/dL 6 - 23 -[facility] Work Phone: Renal Function Panel >90 >90 [facility] Work Phone: Comment on above: CALCULATIONS OF ROSANA MATED GFR ARE PERFORMED USING THE 2020 CKD-EPI STUDY REFIT EQUATION WITHOUT THE RACE VARIABLE FOR THE IDMS-TRACEABLE CREATININE METHODS.https://jasn.asnjournals.org/content/early/ASN .[email or web address] [facility] Cytologyon 09-02-2022 [facility] Cytology Patient Name CHRISTOS LYONS Date of Procedure: 09/02/2022 Date Reported: 09/06/2022 Date Received: 09/02/2022 Date of / Sex 1945 (Age: 77) / M Race: WHITE Submitting Physician: MATT PRINCE MD Other External # FINAL CYTOLOGICAL INTERPRETATION A. ESOPHAGEAL BRUSH: NO MALIGNANT CELLS IDENTIFIED Unremarkable squamous cells and rare columnar cells No fungal organisms identified Slide(s) initially screened by a Manager Of Recruiting at [facility], [address] [place] [address] Electronically Signed Out By KERRY BRADFORD DO By the signature on this report, the individual or group listed as making the Final Interpretation/Diagnosis certifies that they have reviewed this case. Slide(s) initially screened by a Manager Of Recruiting at [facility] Diagnostic interpretation performed at [facility] [address] [place] [address]. [place] [address] Clinical History RULE OUT CASIE Source of Specimen A: ESOPHAGEAL BRUSH Specimen Submitted as: A: ESOPHAGEAL BRUSH Pap non-gender studies professor ThinPrep slide Gross Description A. ESOPHAGEAL BRUSH: RECEIVED 1 [place] in 30cc OF COLORLESS,CLEAR CYTOLYT WITH PARTICLES. SPECIMEN SENT FOR ANALYSIS TO THE CYTOLOGY DEPARTMENT AT [facility]. [facility] Department of Pathology [address] [place] [address] Normal [facility] Comment on above: Performed By: #### C #### [facility] Cytology [address] [place] [address] Surgical Pathology Depar tmenton 09-02-2022 [facility] Surgical Pathology Department Name CHRISTOS LYONS Pathologist: POLO GRECO MD Date of Procedure: 09/02/2022 Date Received: 09/02/2022 Date Reported 09/06/2022 Submitting Physician: MATT PRINCE MD Location: [facility] Other External # FINAL DIAGNOSIS A. GASTRIC ANTRUM AND BODY, BIOPSIES: --GASTRIC MUCOSA WITH NO SIGNIFICANT HISTOPATHOLOGICAL ABNORMALITIES. --HELICOBACTER IS NOT IDENTIFIED. Electronically Signed Out By POLO GRECO MD/[facility] By the signature on this report, the individual or group listed as making the Final Interpretation/Diagnosis certifies that they have reviewed this case. Diagnostic interpretation performed at [place] [address] Clinical History: Rule out H.Pylori Specimens Submitted As: A: GASTRIC ANTRUM AND BODY,COLD BIOPSY Gross Description: Received in formalin, labeled with the patient's name and hospital number and A gastric antrum body, are two fragments of bai, soft tissue aggregating to 0.7 x 0.2 x 0.2 cm. The specimen is submitted in toto in one cassette. DMB dmb/09/03/2022 [facility] Department of Pathology [address] [place] [address] Normal [facility] Comment on above: Performed By: #### U HCS #### [facility] Surgical Pathology Department [address] [place] [address] Upper GI endoscopyon 023 Upper GI endoscopy PATIENTNAME Patient Name: Christos Lyons EXAMDATE Procedure Date: 09/02/2022 2:24 PM PATIENTID PATIENTACCOUNTNUM PATIENTDOB Date of : 1945 PATIENTROOM Site: [place] [address] ETHNICITY Ethnicity: Not or RACE Race: White PROVDR Attending MD: Matt Prince MD, [id number] ENDOPROCEDURENAME Procedure: Upper GI endoscopy INDICATION Indications: Dysphagia PRIMARYPROVIDER Providers: Matt Prince MD (Doctor) , Jose Pfeiffer, REGULO (Nurse) , Lizett Lau, REGULO (Nurse) EDREFPROVIDER Referring MD: CURRENT_MEDS Medicines: Sedation Administered by an Anesthesia Professional, Monitored Anesthesia Care COMPLIC Complications: No immediate complications. Estimated blood loss: Minimal. ENDOPROCEDURETEXT Procedure: Pre-Anesthesia Assessment: - Prior to the procedure, a History and Physical was performed, and patient medications and allergies were reviewed. The patient's tolerance of previous anesthesia was also reviewed. The risks and benefits of the procedure and the sedation options and risks were discussed with the patient. All questions were answered, and informed consent was obtained. Prior Anticoagulants: The patient has taken no anticoagulant or antiplatelet agents. ASA Grade Assessment: III - A patient with severe systemic disease. After reviewing the risks and benefits, the patient was deemed in satisfactory condition to undergo the procedure. - The anesthesia plan was to use monitored anesthesia care (MAC). After obtaining informed consent, the endoscope was passed under direct vision. Throughout the procedure, the patient's blood pressure, pulse, and oxygen saturations were monitored continuously. The endoscope was introduced through the mouth, and advanced to the second part of duodenum. The upper GI endoscopy was accomplished without difficulty. The patient tolerated the procedure well. FINDING Findings: Patchy, white plaques were found in the middle third of the esophagus. Cells for cytology were obtained by brushing. Scattered moderate inflammation characterized by erosions and erythema was found in the gastric antrum. Biopsies were taken with a cold forceps for Helicobacter pylori testing. Estimated blood loss was minimal. The cardia and gastric fundus were normal on retroflexion. The duodenal bulb and second portion of the duodenum were normal. SEDATION Moderate Sedation: OTHER EBL Estimated Blood Loss: Estimated blood loss was minimal. IMPRESS Impression: - Esophageal plaques were found, suspicious for candidiasis. Cells for cytology obtained. - Gastritis. Biopsied. - Normal duodenal bulb and second portion of the duodenum. ENDORECOMMENDATION Recommendation: - Await pathology results. - PPI therapy twice daily for 4 weeks. - If cytology + for casie on esophageal brushings then will need treatment with fluconazole. ATTDRPART Attending Participation: I personally performed the entire procedure. SIGNATURENAME Matt Prince MD SIGNATUREDATE 09/02/2022 2:44:45 PM SIGNATUREONFILEIND This report has been signed electronically. NUMADDENDA Number of Addenda: 0 INITIATEDON Note Initiated On: 09/02/2022 2:24 PM TOTPROCTIME Total Procedure Duration Time 0 hours 5 minutes 45 seconds Normal [facility] BASIC METABOLIC PANELon 04-2 Anion gap [Moles/Vol] 11 mmol/L Normal 10 - 20 [facility] Comment on above: Order Comment: SOD C ALLED RB TO LA NENA ROTHMAN, 09/01/2022 08:36 Performed By: #### V TB12 #### [place] [address] [place] [address] Calcium [Mass/Vol] 7.3 mg/dL Low 8.6 - 10.3 [facility] Comment on above: Order Comment: SOD C ALLED RB TO LA NENA ROTHMAN, 09/01/2022 08:36 Performed By: #### V TB12 #### [facility] [address] [place] [address] Chloride [Moles/Vol] 80 mmol/L Low 98 - 107 [facility] Comment on above: Order Comment: SOD C ALLED RB TO LA NENA ROTHMAN, 09/01/2022 08:36 Performed By: #### V TB12 #### [facility] [address] [place] [address] Creatinine [Mass/Vol] 0.41 mg/dL Low 0.50 - 1.30 [facility] Comment on above: Order Comment: SOD C ALLED RB TO LA NENA ROTHMAN, 09/01/2022 08:36 Performed By: #### V TB12 #### [facility] [address] [place] [address] eGFR MALE >90 Normal >90 [facility] Comment on above: Order Comment: SOD C ALLED RB TO LA NENA ROTHMAN, 09/01/2022 08:36 Result Comment: CALC ULATIONS OF ESTIMATED GFR ARE PERFORMED USING THE 2020 CKD-EPI STUDY REFIT EQUATION WITHOUT THE RACE VARIABLE FOR THE IDMS-TRACEABLE CREATININE METHODS. https://jasn.asnjournals.org/content//ASN.5310727 988 Performed By: #### V TB12 #### [facility] [address] [place] [address] Glucose [Mass/Vol] 112 mg/dL High 74 - 99 [facility] Comment on above: Order Comment: SOD C ALLED RB TO LA NENA ROTHMAN, 09/01/2022 08:36 Performed By: #### V TB12 #### [facility] [address] [place] [address] HCO3 (Bld) [Moles/Vol] 31 mmol/L Normal 21 - 32 [facility] Comment on above: Order Comment: SOD C ALLED RB TO LA NENA ROTHMAN, 09/01/2022 08:36 Performed By: #### V TB12 #### [facility] [address] [place] [address] Potassium [Moles/Vol] 3.2 mmol/L Low 3.5 - 5.3 [facility] Comment on above: Order Comment: SOD C ALLED RB TO LA NENA ROTHMAN, 09/01/2022 08:36 Performed By: #### V TB12 #### [facility] [address] [place] [address] Sodium [Moles/Vol] 119 mmol/L Critically low 136 - 145 [facility] Comment on above: Order Comment: SOD C ALLED RB TO LA NENA ROTHMAN, 09/01/2022 08:36 Result Comment: SOD CALLED RB TO LA NENA ROTHMAN, 09/01/2022 08:36 Performed By: #### V TB12 #### [facility] [address] [place] [address] Urea nitrogen [Mass/Vol] 8 mg/dL Normal 6 - 23 [facility] Comment on above: Order Comment: SOD C ALLED RB TO LA NENA ROTHMAN, 09/01/2022 08:36 Performed By: #### V TB12 #### [facility] [address] [place] [address] Daily Progress Note-Gastroen terologyon 09-01-2022 Daily Progress Note-Gastroenterolog y Service: Gastroenterology Subjective Data: CHRISTOS LYONS is a 77 year old Male who is Hospital Day # 5. Denies focal abd pain. Reports some loose stools. No rectal bleeding. Objective Data: Objective Information: T PRBPMAPSpO2 [id number]/7696% Date/Time09/01 8: 8: 8: 8: 8:14 Range(36.6C - 37.3C ) (63 - 70 ) (16 - 18 ) (101 - 129 )/ (58 - 76 ) (93% - 96% ) Highest temp of 37.3 C was recorded at 08/31 23:19 Pain reported at 09/01 4:21: sleeping ---- Intake and Output ----- Mn/Dy/Year TimeIntakeOutputNet Sep 01, 2022 6:00 [id number] Aug 31, 2022 10:00 [id number] The Intake and Output Totals for the last 24 hours are: IntakeOutputNet [id number] Physical Exam by System: Constitutional: Well developed, awake/alert/oriented x3, no distress, alert and cooperative Respiratory/Thorax: Patent airways, CTAB, normal breath sounds with good chest expansion, thorax symmetric Cardiovascular: Regular, rate and rhythm, no murmurs, 2+ equal pulses of the extremities, normal S 1and S 2 Gastrointestinal: Nondistended, soft, non-tender, no rebound tenderness or guarding, no masses palpable, no organomegaly, +BS, no bruits Medication: Medications: Continuous Medications ------ 1. Lactated Ringers Infusion: 1000 mL IntraVenous Scheduled Medications ------ 1. Allopurinol: 300 mg Oral Every 24 Hours 2. Atorvastatin: 40 mg Oral Daily 3. Emollient Topical Cream: 1 application(s) Topical 3 Times a Day 4. Enoxaparin SubCutaneous: 40 mg SubCutaneous Every 24 Hours 5. Folic Acid: 1 mg Oral Daily 6. Gabapentin: 300 mg Oral 2 Times a Day 7. Levothyroxine: 75 microgram(s) Oral Daily 8. Lidocaine 4% TransDermal: 1 patch TransDermal Every 24 Hours 9. Multivitamin with Minerals: 1 tablet(s) Oral Daily 10. Pantoprazole Injectable: 40 mg IntraVenous Push Every 24 Hours 11. Psyllium Packet: 1 packet(s) Oral 2 Times a Day 12. Thiamine Injectable: 100 mg IntraVenous Push Daily 13. Tolvaptan: 15 mg Oral Once 14. Urea 40% Topical: 1 application(s) Topical 3 Times a Day PRN Medications ------ 1. LORazepam Injectable: 0.5 mg IntraVenous Push Every 2 Hours 2. LORazepam Injectable: 1 mg IntraVenous Push Every 2 Hours 3. LORazepam Injectable: 2 mg IntraVenous Push Every 2 Hours 4. Ondansetron Injectable: 4 mg IntraVenous Push Every 4 Hours Recent Lab Results: Results: BMP: 09/01/2022 06:57 NA+ Cl- BUN / 119 LL 80 L 8 / ------ Glucose - 112 H K+ HCO3- Creat \ 3.2 L 31 0.41 L \ Calcium : 7.3 L Anion Gap : 11 I have reviewed these laboratory results: Basic Metabolic Panel 01-Sep-2022 06:57:00 ResultValue Lab Comment: SOD CALLED RB TO LA NENA ROTHMAN, 09/01/2022 08:36 Glucose, Serum 112 H NA 119 LL K 3.2 L CL 80 L Bicarbonate, Serum 31 Anion Gap, Serum 11 BUN 8 CREAT 0.41 L GFR Male >90 Calcium, Serum 7.3 L Magnesium, Serum 01-Sep-2022 06:57:00 ResultValue Magnesium, Serum 1.90 Complete Blood Count 31-Aug-2022 06:09:00 ResultValue White Blood Cell Count 7.5 Red Blood Cell Count 2.86 L HGB 10.1 L HCT 28.2 L MCV 99 MCHC 35.8 PLT 125 L RDW-CV 14.3 Assessment and Plan: Code Status: Code StatusDNAR Impression 1: Patient with dysphagia. Remains hyponatremic. Tolerating some solid food. Plan for Impression 1: -Will delay EGD again due to hyponatremia (possible tomorrow if improved sodium level). -Diet as tolerated today Nutrition Diagnosis: Nutrition Diagnosis Agree with dietitians assessment and diagnoses as stated. A new diagnosis of Moderate malnutrition related to chronic disease or condition related to chronic illness as evidence by poor intake of < 75% of estimated energy requirement in > 1 month, mild subcutaneous fat loss, mild muscle wasting and mild fluid accumulation present. Electronic Signatures: Matt Prince) (Signed 01-Sep-2022 09:15) Authored: Service, Subjective Data, Objective Data, Assessment and Plan, Note Completion Last Updated: 01-Sep-2022 09:15 by Matt Prince) Normal [facility] Daily Progress Note-Medicine on 09-01-2022 Daily Progress Note-Medicine Service: Medicine Subjective Data: CHRISTOS LYONS is a 77 year old Male who is Hospital Day # 5. On room air, brother bedside. Pt tolerating PO intake. Reports diarrhea. Has condom cath. Afebrile. No overnight events reported. Objective Data: Objective Information: T PRBPMAPSpO2 [id number]/7493% Date/Time09/01 11: 11: 11: 11: 11:55 Range(36.5C - 37.3C ) (61 - 70 ) (16 - 18 ) (101 - 129 )/ (58 - 76 ) (93% - 96% ) Highest temp of 37.3 C was recorded at 08/31 23:19 Pain reported at 09/01 11:09: 0 = None ---- Intake and Output ----- Mn/Dy/Year TimeIntakeOutputNet Sep 01, 2022 2:00 [id number] Sep 01, 2022 6:00 [id number] Aug 31, 2022 10:00 [id number] The Intake and Output Totals for the last 24 hours are: IntakeOutputNet [id number] Physical Exam by System: Constitutional: no acute distress Respiratory/Thorax: fairly CTAB Cardiovascular: regular rhythm, no murmurs Gastrointestinal: Nontender, non distended. Extremities: trace edema in legs Neurological: alert and oriented, moving all extremities Psychological: normal affect Skin: no rashes or lesions Recent Lab Results: Results: BMP: 09/01/2022 06:57 NA+ Cl- BUN / 119 LL 80 L 8 / ------ Glucose - 112 H K+ HCO3- Creat \ 3.2 L 31 0.41 L \ Calcium : 7.3 L Anion Gap : 11 Assessment and Plan: Code Status: Code StatusDNAR Assessment: 77 yoM with anorexia, dysphagia, malaise. Findings [...] this point; can get outpatient PET scan/biopsy. 08/30: Sodium worse at 119 today, so [...] px with lovenox Dispo likely new snf. Hyponatremia, hypervolemic Alcoholic liver disease Malnutrition Cytopenia Lung nodule Esophagitis, dysphagia Hypothyroidism HLD Right knee OA NIDDM - IV lasix again today; will lower fluid restriction further; low Na is multi-factorial - possible EGD tomorrow - will need SNF on dc - outpt PET scan/pulm f/u - starting new synthroid - CIWA - echo - lovenox ppx Electronic Signatures: Caesar Sal) (Signed 01-Sep-2022 17:04) Authored: Service, Subjective Data, Objective Data, Assessment and Plan, Note Completion Last Updated: 01-Sep-2022 17:04 by Caesar Sal) [facility] Daily Progress Note-Nephrolo gyon 09-01-2022 Daily Progress Note-Nephrology Service: Nephrology Subjective Data: CHRISTOS LYONS is a 77 year old Male who is Hospital Day # 5. Seen and examined. Working with therapy. No acute events, he does not offer new complaints. Chart/labs/meds/notes/imag ing/VS reviewed. Objective Data: Objective Information: T PRBPMAPSpO2 Value36.69182137/7493% Date/Time09/01 11: 11: 11:5509/01 11: 11:55 Range(36.5C - 37.3C ) (61 - 70 ) (16 - 18 ) (101 - 129 )/ (58 - 76 ) (93% - 96% ) Highest temp of 37.3 C was recorded at 08/31 23:19 Pain reported at 09/01 11:09: 0 = None ---- Intake and Output ----- Mn/Dy/Year TimeIntakeOutputNet Sep 01, 2022 2:00 [id number] Sep 01, 2022 6:00 [id number] Aug 31, 2022 10:00 [id number] The Intake and Output Totals for the last 24 hours are: IntakeOutputNet [id number] Physical Exam by System: Constitutional: Well developed, awake/alert/oriented x3, no distress, alert and cooperative Eyes: PERRL, EOMI, clear sclera ENMT: mucous membranes moist Head/Neck: Neck supple, no JVD, trachea midline Respiratory/Thorax: Lungs are Clear to auscultation Cardiovascular: Regular, rate and rhythm, normal S 1and S 2 Gastrointestinal: Nondistended, soft, non-tender, no rebound tenderness or guarding Extremities: Anasarca, improving Neurological: Awake and alert Cranial nerves II through XII grossly intact Psychological: Appropriate mood and behavior Skin: Dry scaly skin of the lower extremities bilaterally Medication: Medications: Continuous Medications ------ 1. Lactated Ringers Infusion: 1000 mL IntraVenous Scheduled Medications ------ 1. Allopurinol: 300 mg Oral Every 24 Hours 2. Atorvastatin: 40 mg Oral Daily 3. Emollient Topical Cream: 1 application(s) Topical 3 Times a Day 4. Enoxaparin SubCutaneous: 40 mg SubCutaneous Every 24 Hours 5. Folic Acid: 1 mg Oral Daily 6. Gabapentin: 300 mg Oral 2 Times a Day 7. Levothyroxine: 75 microgram(s) Oral Daily 8. Lidocaine 4% TransDermal: 1 patch TransDermal Every 24 Hours 9. Multivitamin with Minerals: 1 tablet(s) Oral Daily 10. Pantoprazole Injectable: 40 mg IntraVenous Push Every 24 Hours 11. Potassium Chloride Powder Packet: 60 mEq Oral Once 12. Psyllium Packet: 1 packet(s) Oral 2 Times a Day 13. Thiamine Injectable: 100 mg IntraVenous Push Daily 14. Tolvaptan: 30 mg Oral Once 15. Urea 40% Topical: 1 application(s) Topical 3 Times a Day PRN Medications ------ 1. LORazepam Injectable: 0.5 mg IntraVenous Push Every 2 Hours 2. LORazepam Injectable: 1 mg IntraVenous Push Every 2 Hours 3. LORazepam Injectable: 2 mg IntraVenous Push Every 2 Hours 4. Ondansetron Injectable: 4 mg IntraVenous Push Every 4 Hours Recent Lab Results: Results: BMP: 09/01/2022 06:57 NA+ Cl- BUN / 119 LL 80 L 8 / ------ Glucose - 112 H K+ HCO3- Creat \ 3.2 L 31 0.41 L \ Calcium : 7.3 L Anion Gap : 11 Radiology Results: Results: Impression: Respiratory motion artifact slightly limits evaluation of lung parenchyma. There is slightly branching subpleural irregular nodular density laterally in theright upper lobe, measuring up to 2.0 by [...] reflux esophagitis. Correlate clinically with GERD. Small slidin (more content not included)... Normal [facility] Laboratory - Chemistry and C hemistry - challengeon 09-01-2022 Anion gap [Moles/Vol] 11 mmol/L 10 - 20 [facility] Work Phone: Calcium [Mass/Vol] 7.3 mg/dL below low threshold 8.6 - 10.3 [facility] Work Phone: Chloride [Moles/Vol] 80 mmol/L below low threshold 98 - 107 [facility] Work Phone: CO2 [Moles/Vol] 31 mmol/L 21 - 32 [facility] Work Phone: Creatinine [Mass/Vol] 0.41 mg/dL below low threshold See Below [facility] Work Phone: Comment on above: Reference Range: 0.5 0 - 1.30 Glucose [Mass/Vol] 112 mg/dL above high threshold 74 - 99 [facility] Work Phone: Potassium [Moles/Vol] 3.2 mmol/L below low threshold 3.5 - 5.3 [facility] Work Phone: Sodium [Moles/Vol] 119 mmol/L Critically low 136 - 145 [facility] Work Phone: Comment on above: SOD CALLED RB TO CARLIE ROTHMAN, 09/01/2022 08:36 Urea nitrogen [Mass/Vol] 8 mg/dL 6 - 23 [facility] Work Phone: MAGNESIUMon 09-01-2022 Magnesium [Mass/Vol] 1.90 mg/dL Normal 1.60 - 2.40 [facility] Comment on above: Performed By: #### M #### [facility] [address] [place] [address] Magnesium, Serumon 3 Magnesium [Mass/Vol] 1.90 mg/dL See Below [facility] Work Phone: Comment on above: Reference Range: 1.6 0 - 2.40 No Panel Informationon 09-01 >90 >90 [facility] Work Phone: Comment on above: CALCULATIONS OF ROSANA MATED GFR ARE PERFORMED USING THE 2020 CKD-EPI STUDY REFIT EQUATION WITHOUT THE RACE VARIABLE FOR THE IDMS-TRACEABLE CREATININE METHODS.https://jasn.asnjournals.org/content//ASN .7261335734 Phosphorus, Serumon 09-02-19 Phosphate [Mass/Vol] Canceled [facility]ianna lino Work Phone: Comment on above: The performance fransisca acteristics of phosphorus testing in heparinized plasma have been validated by the individual laboratory site where testing is performed. Testing on heparinized plasma is not approved by the FDA; however, such approval is not necessary. Rehab [id number] Rehab Bstw-th-bqeurxzfv Rehab: Info: Disciplineoccupational therapist Mode of Treatmentco-treatment Time IN13:17 Time OUT13:45 Total Treatment [id number] Total Minutes Commentco-treatment with PT to maximize pt safety with mobility and optimize pt performance during session. Therapists facilitating sitting/standing balance and overall activity tolerance/endurance; PT with focus for mobility, OT with focus for ADLs. Patient in ... at end of sessionbed, 2 railings up; alarm on Communicated with ... at end of sessionbedside nurse; Spoke to RN about patients participation in therapy and their current level of function for ADLs/functional transfers. Confirmed with RN where the patient was positioned at end of session with needs placed within reach. Messaged TCC about therapy recommendations for discharge. Patient Effortadequate Symptoms Noted During/After Treatmentfatigue Treatment Considerations/CommentsPat ient chart review by therapist. Per handoff with nursing prior to therapy visit, patients pain and vitals are stable. Additional concern for this patient related to therapy session: none. Patient Response to Treatmentpt supine in bed upon arrival, required encouragement to participate in therapy. pt slow moving with frequent rest breaks, pt also reporting sensation of having to have a BM throughout Line and Tubestelemetry During Treatment Patient Positionsitting During Treatment Heart Rate (beats/min)61 During Treatment Oxygen Deliveryroom air Vision/Cognition: Affect/Mental Status (Cognitive)confused; flat/blunted affect Mobility/Tone: Bed Mobility Assessment/Interventionssu pine to sit; sit to supine; scooting/bridging Scoot/Bridge Gilliam (Bed Mobility)maximum assist (25% patient effort); 2 person assist; MAX A x2 for lateral scooting towards R side while seated EOB, required VCs for hand placement and anterior weight shifting Zgaqri-fl-Ckb Gilliam (Bed Mobility)moderate assist (50% patient effort); 2 person assist; MOD A x2 for managing BLE to edge of bed and for lifting trunk, performed with HOB slightly elevated Sxd-na-Bvdika Gilliam (Bed Mobility)maximum assist (25% patient effort); 2 person assist; MAX A x2 for lifting BLE back to bed and for lowering/positioning trunk Transfer Assessment/Interventionssi t to stand transfer; stand to sit transfer Sit-Stand Gilliam (Transfers)maximum assist (25% patient effort); 2 person assist; MAX A x2 to stand from EOB with FWW and arm n arm assist, VCs for hand placement Sit-Stand Assistive Device (Transfers)walker, front-wheeled Stand-Sit Gilliam (Transfers)maximum assist (25% patient effort); 2 person assist Stand-Sit Assistive Device (Transfers)walker, front-wheeled Comment, Gait/Stairs Trainingpt attempted lateral stepping towards R side with FWW however unsuccessful due to inadequate weight shifting and difficulty advancing BLE. Impairments Impacting Function (Mobility)balance; endurance/activity tolerance; strength; postural/trunk control ADL: BADL Assessment/Interventionlow er body dressing; toileting Gilliam Level (Lower Body Dressing)dependent (less than 25% patient effort) Comment (Lower Body Dressing)Total A for donning yoandy socks due to fatigue and decreased postural strength Gilliam Level (Toileting)dependent (less than 25% patient effort); 2 person assist Comment (Toileting)pt with bowel incontinence once seated EOB. pt stood with FWW (MAX A x2) while other helper assisted with posterior hygiene and changing of chux. pt stood for ~5 minutes total for thoroughness of hygiene. Impairments, BADL Safety/Performanceenduranc e/activity tolerance; balance; strength; trunk/postural control Motor: Sitting, Static (Balance)fair balance CGA once seated EOB, pt with heavy UE reliance for stability Sitting, Dynamic (Balance)fair - Xfc-wf-Gojkj (Balance)poor balance MAX A x2 stand Standing, Static (Balance)poor balance MOD x2 to maintain standing with FWW Sensory: Pre-Treatment Pain Rating5/10 Post-Treatment Pain Rating5/10 Pain LocationR knee Health: Observed Emotional Statecooperative Plan of Care Reviewed Withpatient Outcomes Tools: Putting on and taking off regular lower body clothingtotal Bathing (including washing, rinsing, drying)total Toileting, which includes using toilet, bedpan or urinaltotal Putting on and taking off regular upper body clothinga lot Taking care of personal grooming such as brushing teetha little Eating Mealsa little AM-PAC (OT) Total Score11 Short Term Goals: Bed Mobility: Date [id number] Bed Mobility: Gilliam Level Goalmaximum assist (25% patients effort) Bed Mobility: Physical Assist Level Goal1-person assist Bed Mobility: Time Frame for Goal2 wks Transfer: Established [id number] Transfer: Transfer Type Goaltoilet Transfer: Gilliam Level Goalmaximum assist (25% patients effort) Transfer: Physica (more content not included)... Normal [facility] Rehab Note-physical therapy nurse - Co-treat with OT magdiel 09-01-2022 Rehab Note-physical therapy nurse - Co-treat with OT to Rehab: Info: Disciplinephysical physical therapy attendant; Co-treat with OT to maximize patient participation and safty Participated in performance of tx and documentation under the direct supervision of CI, student Prudencio WINN Mode of Treatmentphysical therapy; co-treatment Time IN13:17 Time OUT13:45 Total Treatment [id number] Patient in ... at end of sessionbed, 3 railings up; alarm on Communicated with ... at end of sessionbedside nurse; discussed pt's progress and current mobility as described in mobility section Patient Effortadequate Symptoms Noted During/After Treatmentfatigue Treatment Considerations/Commentstel e, indwelling urethral catheter Patient Response to TreatmentRN Ok'd seeing pt with no stated issues in past 24 hours that would be contraindicated prior to pt participating in therapy. Patient had adequate sanjana to tx this date, agreeable to participate in therapy this date. In bed upon entry. Patient/Family/Caregiver Comments/Observationsvisit or in room at start of tx Mobility/Tone: Bed Mobility Assessment/Interventionssu pine to sit; sit to supine; scooting/bridging; bed mobility activities Gilliam (Bed Mobility)maximum assist (25% patient effort); 2 person assist; set up; verbal cues Scoot/Bridge Gilliam (Bed Mobility)maximum assist (25% patient effort); 2 person assist; set up; verbal cues Xrloox-kq-Wva Gilliam (Bed Mobility)moderate assist (50% patient effort); 2 person assist; verbal cues; set up Rwa-xj-Uedbol Gilliam (Bed Mobility)verbal cues; set up; maximum assist (25% patient effort); 2 person assist Assistive Device (Bed Mobility)bed rails; draw sheet Comment, Bed Mobilitypt able to complete bed mobility requiring Mod A-Max A and Vc for sequencing and usage of bed rails for advancing BLE to EOB. pt demo's ability to initiate BLE movement for EOB sitting but unable to complete without assistance. Transfer Assessment/Interventionssi t to stand transfer; stand to sit transfer Comment, Transferspt able to complete trials with Mod A and Vc for sequencing, hand placement and CORDELIA under COG. pt demos with anterior lean upon standing. Sit-Stand Gilliam (Transfers)moderate assist (50% patient effort); 2 person assist; verbal cues; set up Sit-Stand Assistive Device (Transfers)gait belt; walker, front-wheeled Stand-Sit Gilliam (Transfers)2 person assist; moderate assist (50% patient effort); verbal cues; set up Stand-Sit Assistive Device (Transfers)gait belt; walker, front-wheeled Safety Issues Impacting Function (Mobility)impulsivity; safety precaution awareness; positioning of assistive device; judgment; sequencing abilities Impairments Impacting Function (Mobility)strength; postural/trunk control; balance; endurance/activity tolerance; grasp; motor control Motor: Sitting, Static (Balance)fair balance Sitting, Dynamic (Balance)fair balance Ugw-dg-Vlffm (Balance)fair balance Standing, Static (Balance)poor balance Standing, Dynamic (Balance)poor balance Balance Activitiespt able to maintaining static balance requiring Mod A x1 ~5 minutes with Vc's for FWW assistance for upright posture Sensory: Pre-Treatment Pain Rating0/10 - no pain Post-Treatment Pain Rating0/10 - no pain Outcomes Tools: Turning from your back to your side while in a flat bed without using bedrails a lot Moving from lying on your back to sitting on the side of a flat bed without using bedrailsa lot Moving to and from bed to chair (including a wheelchair)a lot Standing up from a chair using your arms (e.g. wheelchair or bedside chair)a lot To walk in hospital roomtotal Climbing 3-5 steps with railingtotal AM-PAC (PT) Total Score10 Short Term Goals: Bed Mobility: Date [id number] Bed Mobility: Gilliam Level Goalminimum assist (75% patients effort) Bed Mobility: Time Frame for Goal2 wks Transfer: Established [id number] Transfer: Transfer Type Uvgtajm-bc-jxblp/chair-to- bed; bii-ji-qdzrh/adycu-gu-zmo Transfer: Gilliam Level Goalminimum assist (75% patients effort) Transfer: Assistive Device Goalrolling walker Transfer: Time Frame for Goal2 wks Gait: Established [id number] Gait: Gilliam Level Goalmodified independent Gait: Assistive Device Goalrolling walker Gait: Distance Goalx 20ft Gait: Time Frame for Goal2 wks DC Recommendations: Discharge Recommendation (PT Eval)Continue with current POC and recommend MOD intensity skilled physical therapy intervention after discharge to address their limitations and ensure safety as per PT EVAL Electronic Signatures: Prudencio Franco (SPTA) (Signed 01-Sep-2022 14:31) Authored: Info, Mobility/Tone, Motor, Sensory, Outcomes Tools, Short Term Goals, DC Recommendations Nick De Jesus (PT) (Signed 02-Sep-2022 09:03) Co-Signer: Info, Mobility/Tone, Motor, Sensory, Outcomes Tools, Short Term Goals, DC Recommendations Jason (more content not included)... Normal [facility] Rehab Uick-tcuhls-yzbbatjy p athologyon 09-01-2022 Rehab Elog-qqgcah-kfhrawgm pathology Rehab: Info: Disciplinespeech language pathologist Mode of Treatmentspeech-language pathology Time IN12:30 Time OUT13:00 Total Treatment [id number] Patient Effortexcellent Patient Response to TreatmentPt doing much better overall. Pt intake has appeared to return to normal. Pt continues to have a fear of something being wrong with his throat or esophagus and is still eager to have the EGD to confirm. Communicate/Swallow: [employer] Diet RecommendationsRegular [employer] Liquid Consistency RecommendationsThin 0 (Regular thin) Recommended Feeding/Eating Techniques (Swallow Eval)feed upright in 90 degree position& small sips/bites Swallow Assessment/Intervention/Tr eatment OutcomePt demonstrating overall improvement with well being and health since initial admission. It is clear his appetite has returned back to baseline. Pt consumed 100% of his lunch which included a turkey sandwich, lewis ice, and thin liquids. Pt fed self with some assistance with set up from his family member in the room. No apparent difficulty of dysphagia noted with full meal today. EGD on hold due to hyponatremia. Will wait to determine results of EGD before discharging speech therapy. Short Term Goals: Dysphagia/Swallow: Established [id number] Dysphagia/Swallow: Goal Details1. Pt will swallow the GI appropriate diet without concern for aspiration. 2. Ongoing swallowing re-evaluations post the GI objective study- EGD results and recs if clinically appropriate. 3. Pt/family education 4. Determine if a MBSS is needed. Dysphagia/Swallow: Time Frame for Goal1 wk Dysphagia/Swallow: Goal Outcomegoal partially met Education: Learnerpatient Barriers to Learningcognitive limitations barrier Methodverbal Outcome Evaluation1=partially meets; needs review Education - Topicoverall progress Outcome Summary: Progress: Speech Language Pathologyprogress toward functional goals as expected Outcome Summary: Speech Language PathologyPt upgraded to regular diet with thin liquids. Appetite has returned to normal. DC Recommendations: Discharge Recommendation (Swallow Eval)no further speech therapy upon discharge Electronic Signatures: Wanda Manzano ([employer]) (Signed 01-Sep-2022 14:58) Authored: Info, Communicate/Swallow, Short Term Goals, Education, Outcome Summary, DC Recommendations Last Updated: 01-Sep-2022 14:58 by Wanda Manzano ([employer]) Normal [facility] STOOL PATHOGEN PCR PANELon 0 09-01-2022 CAMPYLOBACTER GP. Not detected Normal NOT DETECTED [facility] Comment on above: Performed By: #### M G #### [facility] [address] [place] [id number] NOROVIRUS GI/GII Not detected Normal NOT DETECTED [facility] Comment on above: Performed By: #### M G #### [facility] [address] [id number] ROTAVIRUS A Not detected Normal NOT DETECTED [facility] Comment on above: Result Comment: The enteric PCR panel is a panel of sensitive and specific amplified nucleic acid tests indicated as an aid in the diagnosis of specific bacterial and viral agents of gastrointestinal illness, in conjunction with other clinical, laboratory, and epidemiological information. This test is not approved for monitoring these infections. Monitoring is available for Salmonella and Shigella infections-request test Stool PCR Follow-Up (STLPF). Monitoring tests are not available at this time for other enteric agents in this panel. Performed By: #### M G #### [facility] [address] [id number] SALMONELLA SP. Not detected Normal NOT DETECTED [facility] Comment on above: Performed By: #### M G #### [facility] [address] [place] [address] SHIGA TOXIN 1 Not detected Normal NOT DETECTED [facility] Comment on above: Performed By: #### M G #### [facility] [address] [place] [address] SHIGA TOXIN 2 Not detected Normal NOT DETECTED [facility] Comment on above: Performed By: #### M G #### [facility] [address] [place] [address] SHIGELLA SP. Not detected Normal NOT DETECTED [facility] Comment on above: Performed By: #### M G #### [facility] [address] [place] [address] [employer] Not detected Normal NOT DETECTED [facility] Comment on above: Performed By: #### M G #### [facility] [address] [id number] YERSINIA ENTEROCOLITICA Not detected Normal NOT DETECTED [facility] Comment on above: Performed By: #### M G #### [facility] [address] [place] [address] Lab Specimen Source Normal [facility] Comment on above: Performed By: #### M G #### [facility] [address] [id number] CBCon 08-31-2022 Erythrocyte distribution width (RBC) [Ratio] 14.3 % Normal 11.5 - 14.5 [facility] Comment on above: Performed By: #### M G #### [facility] [address] [place] [id number] Hematocrit (Bld) [Volume fraction] 28.2 % Low 41.0 - 52.0 [facility] Comment on above: Performed By: #### M G #### [facility] [address] [place] [address] Hemoglobin (Bld) [Mass/Vol] 10.1 g/dL Low 13.5 - 17.5 [facility] Comment on above: Performed By: #### M G #### [facility] [address] [place] [address] MCHC (RBC) [Mass/Vol] 35.8 g/dL Normal 32.0 - 36.0 [facility] Comment on above: Performed By: #### M G #### [facility] [address] [place] [address] MCV (RBC) [Entitic vol] 99 fL Normal 80 - 100 [facility] Comment on above: Performed By: #### M G #### [facility] [address] [place] [address] Platelets (Bld) [#/Vol] 125 10*3/uL Low 150 - 450 [facility] Comment on above: Performed By: #### M G #### [facility] [address] [place] [address] RBC 2.86 x10E12/L Low 4.50 - 5.90 [facility] Comment on above: Performed By: #### M G #### [facility] [address] [place] [address] WBC (Bld) [#/Vol] 7.5 10*3/uL Normal 4.4 - 11.3 [facility] Comment on above: Performed By: #### M G #### [facility] [address] [place] [address] COMPREHENSIVE PANELon 2022 Albumin [Mass/Vol] 3.2 g/dL Low 3.4 - 5.0 [facility] Comment on above: Performed By: #### M G #### [facility] [address] [place] [address] ALP [Catalytic activity/Vol] 162 U/L High 33 - 136 [facility] Comment on above: Performed By: #### M G #### [facility] [address] [place] [address] ALT [Catalytic activity/Vol] 49 U/L Normal 10 - 52 [facility] Comment on above: Result Comment: Raysa ents treated with Sulfasalazine may generate falsely decreased results for ALT. Performed By: #### M G #### [facility] [address] [place] [address] Anion gap [Moles/Vol] 11 mmol/L Normal 10 - 20 [facility] Comment on above: Performed By: #### M G #### [facility] [address] [place] [address] AST [Catalytic activity/Vol] 144 U/L High 9 - 39 [facility] Comment on above: Performed By: #### M G #### [facility] [address] [place] [address] Bilirubin [Mass/Vol] 2.9 mg/dL High 0.0 - 1.2 [facility] Comment on above: Performed By: #### M G #### [facility] [address] [place] [address] Calcium [Mass/Vol] 7.5 mg/dL Low 8.6 - 10.3 [facility] Comment on above: Performed By: #### M G #### [facility] [address] [place] [address] Chloride [Moles/Vol] 81 mmol/L Low 98 - 107 [facility] Comment on above: Performed By: #### M G #### [facility] [address] [place] [address] Creatinine [Mass/Vol] 0.39 mg/dL Low 0.50 - 1.30 [facility] Comment on above: Performed By: #### M G #### [facility] [address] [place] [address] eGFR MALE >90 Normal >90 [facility] Comment on above: Result Comment: CALC ULATIONS OF ESTIMATED GFR ARE PERFORMED USING THE 2020 CKD-EPI STUDY REFIT EQUATION WITHOUT THE RACE VARIABLE FOR THE IDMS-TRACEABLE CREATININE METHODS. https://jasn.asnjournals.org/content//ASN.9377113 988 Performed By: #### M G #### [facility] [address] [place] [address] Glucose [Mass/Vol] 105 mg/dL High 74 - 99 [facility] Comment on above: Performed By: #### M G #### [facility] [address] [place] [address] HCO3 (Bld) [Moles/Vol] 32 mmol/L Normal 21 - 32 [facility] Comment on above: Performed By: #### M G #### [facility] [address] [place] [address] Potassium [Moles/Vol] 3.2 mmol/L Low 3.5 - 5.3 [facility] Comment on above: Performed By: #### M G #### [facility] [address] [place] [address] Protein [Mass/Vol] 5.5 g/dL Low 6.4 - 8.2 [facility] Comment on above: Performed By: #### M G #### [facility] [address] [place] [address] Sodium [Moles/Vol] 121 mmol/L Low 136 - 145 [facility] Comment on above: Performed By: #### M G #### [facility] [address] [place] [address] Urea nitrogen [Mass/Vol] 7 mg/dL Normal 6 - 23 [facility] Comment on above: Performed By: #### M G #### [facility] [address] [place] [address] Daily Progress Note-Gastroen terologyon 08-31-2022 Daily Progress Note-Gastroenterolog y Consult Type: subsequent visit/care Service: Gastroenterology Subjective Data: CHRISTOS LYONS is a 77 year old Male who is Hospital Day # 4. sodium is 121. c/o pain from arthritis. Overnight Events: Patient had an uneventful night. Objective Data: Objective Information: T PRBPMAPSpO2 [id number]/5896% Date/Time08/31 8: 8: 8: 8: 8:38 Range(36.3C - 36.8C ) (64 - 69 ) (18 - 18 ) (101 - 119 )/ (54 - 72 ) (93% - 96% ) Pain reported at 08/30 22:12: 0 = None Physical Exam by System: Constitutional: obese, awake/alert/oriented x3, no distress, alert and cooperative Respiratory/Thorax: Patent airways, CTAB, normal breath sounds with good chest expansion, thorax symmetric Cardiovascular: Regular, rate and rhythm, no murmurs, 1+ equal pulses of the extremities, normal S 1and S 2 Gastrointestinal: Nondistended, soft, non-tender, no rebound tenderness or guarding, no masses palpable, no organomegaly, +BS Extremities: normal extremities, no cyanosis, BLE edema, no contusions or wounds, no clubbing Neurological: alert and oriented x3 Medication: Medications: Continuous Medications ------ 1. Lactated Ringers Infusion: 1000 mL IntraVenous Scheduled Medications ------ 1. Allopurinol: 300 mg Oral Every 24 Hours 2. Atorvastatin: 40 mg Oral Daily 3. Emollient Topical Cream: 1 application(s) Topical 3 Times a Day 4. Enoxaparin SubCutaneous: 40 mg SubCutaneous Every 24 Hours 5. Folic Acid: 1 mg Oral Daily 6. Gabapentin: 300 mg Oral 2 Times a Day 7. Levothyroxine: 75 microgram(s) Oral Daily 8. Lidocaine 4% TransDermal: 1 patch TransDermal Every 24 Hours 9. Multivitamin with Minerals: 1 tablet(s) Oral Daily 10. Pantoprazole Injectable: 40 mg IntraVenous Push Every 24 Hours 11. Psyllium Packet: 1 packet(s) Oral 2 Times a Day 12. Thiamine Injectable: 100 mg IntraVenous Push Daily 13. Urea 40% Topical: 1 application(s) Topical 3 Times a Day PRN Medications ------ 1. LORazepam Injectable: 0.5 mg IntraVenous Push Every 2 Hours 2. LORazepam Injectable: 1 mg IntraVenous Push Every 2 Hours 3. LORazepam Injectable: 2 mg IntraVenous Push Every 2 Hours 4. Ondansetron Injectable: 4 mg IntraVenous Push Every 4 Hours Recent Lab Results: Results: I have reviewed these laboratory results: Complete Blood Count 31-Aug-2022 06:09:00 ResultValue White Blood Cell Count 7.5 Red Blood Cell Count 2.86 L HGB 10.1 L HCT 28.2 L MCV 99 MCHC 35.8 PLT 125 L RDW-CV 14.3 Comprehensive Metabolic Panel 31-Aug-2022 06:09:00 ResultValue Glucose, Serum 105 H NA 121 L K 3.2 L CL 81 L Bicarbonate, Serum 32 Anion Gap, Serum 11 BUN 7 CREAT 0.39 L GFR Male >90 Calcium, Serum 7.5 L ALB 3.2 L ALKP 162 H T Pro 5.5 L T Bili 2.9 H Alanine Aminotransferase, Serum 49 Aspartate Transaminase, Serum 144 H Phosphorus, Serum 31-Aug-2022 06:09:00 ResultValue Phosphorus, Serum 1.9 L Hepatitis Panel, Acute (HCFA) 30-Aug-2022 06:28:00 ResultValue Hepatitis A IgM Antibody NONREACTIVE Reference Range: NONREACTIVE Biotin interference may cause falsely decreased results. Patients taking a Biotin dose of up to 5 mg/day should refrain from taking Biotin for 24 hours before sample collection. Providers may contact t Hepatitis B Core Ab, IgM NONREACTIVE Reference Range: NONREACTIVE Results from patients taking biotin supplements or receiving high-dose biotin therapy should be interpreted with caution due to possible interference with this test. Providers may contact their local l Hep.B Surface Ag NONREACTIVE Reference Range: NONREACTIVE Biotin interference may cause falsely decreased results. Patients taking a Biotin dose of up to 5 mg/day should refrain from taking Biotin for 24 hours before sample collection. Providers may contact t Hepatitis C-Antibody NONREACTIVE Reference Range: NONREACTIVE Results from patients taking biotin supplements or receiving high-dose biotin therapy should be interpreted with caution due to possible interference with this test. Providers may contact their local Osmolality, Serum 30-Aug-2022 06:28:00 ResultValue Osmolality, Serum 252 L Basic Metabolic Panel 30-Aug-2022 06:27:00 ResultValue Lab Comment: SOD CALLED RB TO IVY MOHAN, 08/30/2022 08:10 Glucose, Serum 109 H NA 119 LL K 3.2 L CL 80 L Bicarbonate, Serum 31 Anion Gap, Serum 11 BUN 9 CREAT 0.47 L GFR Male >90 Calcium, Serum 7.7 L Hepatic Function Panel 30-Aug-2022 06:27:00 ResultValue Aspartate Transaminase, Serum 144 H ALB 3.3 L T Bili 3.5 H Bilirubin, Serum Direct - Conjugated 2.0 H ALKP 164 H Alanine Aminotransferase, Serum 47 T Pro 5.8 L TSH with Reflex to Free T4 if Abnormal 30-Aug-2022 06:27:00 ResultValue Thyroid Stimulating Hormone, Serum 8.58 H Lipid Panel, (more content not included)... Normal [facility] Daily Progress Note-Medicine on 08-31-2022 Daily Progress Note-Medicine Service: Medicine Subjective Data: CHRISTOS LYONS is a 77 year old Male who is Hospital Day # 4. Getting more pain in his legs. Abd distension going down. Still with loose stools. Objective Data: Objective Information: T PRBPMAPSpO2 [id number]/5896% Date/Time08/31 8: 8: 8: 8: 8:38 Range(36.3C - 36.8C ) (64 - 69 ) (18 - 18 ) (101 - 119 )/ (54 - 72 ) (93% - 96% ) Pain reported at 08/30 22:12: 0 = None Physical Exam by System: Constitutional: no acute distress Respiratory/Thorax: fairly CTAB Cardiovascular: regular rhythm, no murmurs Gastrointestinal: hypoactive BS, minimally tender, less distended Extremities: trace edema in legs Neurological: alert and oriented, moving all extremities Psychological: normal affect Skin: no rashes or lesions Recent Lab Results: Results: CBC: 08/31/2022 06:09 \ Hgb / \ 10.1 L / WBC Plt 7.5 125 L / Hct \ / 28.2 L \ RBC: 2.86 L MCV: 99 CMP: 08/31/2022 06:09 NA+ Cl- BUN / 121 L 81 L 7 / ------ Glucose - 105 H K+ HCO3- Creat \ 3.2 L 32 0.39 L \ \ T Bili / \ 2.9 H / AST x ---- x ALT 144 Hx ---- x 49 / Alk P \ / 162 H \ Calcium : 7.5 L Anion Gap : 11 Albumin : 3.2 L T Protein : 5.5 L Assessment and Plan: Code Status: Code StatusDNAR Assessment: 77 yoM with anorexia, dysphagia, malaise. Findings [...] this point; can get outpatient PET scan/biopsy. 08/30: Sodium worse at 119 today, so EGD cancelled. Started synthroid and atorvastatin. 08/31: No EGD today due to sodium. Continue daily IV lasix. One dose tolvaptan. Hyponatremia, hypervolemic Alcoholic liver disease Malnutrition Cytopenia Lung nodule Esophagitis, dysphagia Hypothyroidism HLD Right knee OA NIDDM - IV lasix again today; will lower fluid restriction further; low Na is multi-factorial - possible EGD tomorrow - will need SNF on dc - outpt PET scan/pulm f/u - starting new synthroid - CIWA - echo - lovenox ppx Electronic Signatures: Miles Ahn) (Signed 31-Aug-2022 13:38) Authored: Service, Subjective Data, Objective Data, Assessment and Plan, Note Completion Last Updated: 31-Aug-2022 13:38 by Miles Ahn) Normal [facility] Daily Progress Note-Nephrolo gyon 08-31-2022 Daily Progress Note-Nephrology Service: Nephrology Subjective Data: CHRISTOS LYONS is a 77 year old Male who is Hospital Day # 4. Seen and examined. No acute events, he does not offer new complaints. Chart/labs/meds/notes/imag ing/VS reviewed. Objective Data: Objective Information: T PRBPMAPSpO2 [id number]/5896% Date/Time08/31 8: 8: 8: 8: 8:38 Range(36.3C - 36.8C ) (64 - 69 ) (18 - 18 ) (101 - 119 )/ (54 - 72 ) (93% - 96% ) Pain reported at 08/31 15:07: 0 = None ---- Intake and Output ----- Mn/Dy/Year TimeIntakeOutputNet Aug 30, 2022 10:00 [id number] The Intake and Output Totals for the last 24 hours are: IntakeOutputNet [id number] Physical Exam by System: Constitutional: Well developed, awake/alert/oriented x3, no distress, alert and cooperative Eyes: PERRL, EOMI, clear sclera ENMT: mucous membranes moist Head/Neck: Neck supple, no JVD, trachea midline Respiratory/Thorax: Lungs are Clear to auscultation Cardiovascular: Regular, rate and rhythm, normal S 1and S 2 Gastrointestinal: Nondistended, soft, non-tender, no rebound tenderness or guarding Extremities: Anasarca, improving Neurological: Awake and alert Cranial nerves II through XII grossly intact Psychological: Appropriate mood and behavior Skin: Dry scaly skin of the lower extremities bilaterally Medication: Medications: Continuous Medications ------ 1. Lactated Ringers Infusion: 1000 mL IntraVenous Scheduled Medications ------ 1. Allopurinol: 300 mg Oral Every 24 Hours 2. Atorvastatin: 40 mg Oral Daily 3. Emollient Topical Cream: 1 application(s) Topical 3 Times a Day 4. Enoxaparin SubCutaneous: 40 mg SubCutaneous Every 24 Hours 5. Folic Acid: 1 mg Oral Daily 6. Gabapentin: 300 mg Oral 2 Times a Day 7. Levothyroxine: 75 microgram(s) Oral Daily 8. Lidocaine 4% TransDermal: 1 patch TransDermal Every 24 Hours 9. Multivitamin with Minerals: 1 tablet(s) Oral Daily 10. Pantoprazole Injectable: 40 mg IntraVenous Push Every 24 Hours 11. Psyllium Packet: 1 packet(s) Oral 2 Times a Day 12. Thiamine Injectable: 100 mg IntraVenous Push Daily 13. Tolvaptan: 15 mg Oral Once 14. Urea 40% Topical: 1 application(s) Topical 3 Times a Day PRN Medications ------ 1. LORazepam Injectable: 0.5 mg IntraVenous Push Every 2 Hours 2. LORazepam Injectable: 1 mg IntraVenous Push Every 2 Hours 3. LORazepam Injectable: 2 mg IntraVenous Push Every 2 Hours 4. Ondansetron Injectable: 4 mg IntraVenous Push Every 4 Hours Recent Lab Results: Results: CBC: 08/31/2022 06:09 \ Hgb / \ 10.1 L / WBC Plt 7.5 125 L / Hct \ / 28.2 L \ RBC: 2.86 L MCV: 99 CMP: 08/31/2022 06:09 NA+ Cl- BUN / 121 L 81 L 7 / ------ Glucose - 105 H K+ HCO3- Creat \ 3.2 L 32 0.39 L \ \ T Bili / \ 2.9 H / AST x ---- x ALT 144 Hx ---- x 49 / Alk P \ / 162 H \ Calcium : 7.5 L Anion Gap : 11 Albumin : 3.2 L T Protein : 5.5 L Radiology Results: Results: Impression: Respiratory motion artifact slightly limits evaluation of lung parenchyma. There is slightly branching subpleural irregular nodular density laterally in theright upper lobe, measuring up to 2.0 by [...] and fluid within its lumen, overall suggesting ref (more content not included)... Normal [facility] Daily Progress Note-Pulmonol asia 08-31-2022 Daily Progress Note-Pulmonology Service: Pulmonology Subjective Data: CHRISTOS LYONS is a 77 year old Male who is Hospital Day # 4. S: Feels okay. Denies shortness of breath or cough but does admit to pain involving his right knee and right ankle. On room air with an oxygen saturation of 93%. EGD was canceled due to hyponatremia. Objective Data: Objective Information: T PRBPMAPSpO2 [id number]% Date/Time08/31 8: 8: 8: 8: 8:38 Range(36.3C - 36.8C ) (64 - 69 ) (18 - 18 ) (101 - 119 )/ (54 - 72 ) (93% - 96% ) Pain reported at 08/30 22:12: 0 = None Physical exam: General-awake, alert and in no acute distress. Lungs-clear, without wheezes, rales or rhonchi. Heart-regular rate and rhythm. Abdomen-positive bowel sounds. [id number]+ lower extremity edema. Skin-venous stasis changes of the legs. Medication: Medications: Continuous Medications ------ 1. Lactated Ringers Infusion: 1000 mL IntraVenous Scheduled Medications ------ 1. Allopurinol: 300 mg Oral Every 24 Hours 2. Atorvastatin: 40 mg Oral Daily 3. Emollient Topical Cream: 1 application(s) Topical 3 Times a Day 4. Enoxaparin SubCutaneous: 40 mg SubCutaneous Every 24 Hours 5. Folic Acid: 1 mg Oral Daily 6. Furosemide Injectable: 40 mg IntraVenous Push Once 7. Gabapentin: 300 mg Oral 2 Times a Day 8. Levothyroxine: 75 microgram(s) Oral Daily 9. Lidocaine 4% TransDermal: 1 patch TransDermal Every 24 Hours 10. Multivitamin with Minerals: 1 tablet(s) Oral Daily 11. Pantoprazole Injectable: 40 mg IntraVenous Push Every 24 Hours 12. Potassium Chloride Powder Packet: 40 mEq Oral Once 13. Psyllium Packet: 1 packet(s) Oral 2 Times a Day 14. Thiamine Injectable: 100 mg IntraVenous Push Daily 15. Urea 40% Topical: 1 application(s) Topical 3 Times a Day PRN Medications ------ 1. LORazepam Injectable: 0.5 mg IntraVenous Push Every 2 Hours 2. LORazepam Injectable: 1 mg IntraVenous Push Every 2 Hours 3. LORazepam Injectable: 2 mg IntraVenous Push Every 2 Hours 4. Ondansetron Injectable: 4 mg IntraVenous Push Every 4 Hours Conditional Medication Orders ------ 1. Perflutren Lipid Microsphere (Activated) 1.3 mL / NaCL 0.9% T.V. 10 mL Injectable: 0.5 mL IntraVenous Push Once Recent Lab Results: Results: I have reviewed these laboratory results: Complete Blood Count 31-Aug-2022 06:09:00 ResultValue White Blood Cell Count 7.5 Red Blood Cell Count 2.86 L HGB 10.1 L HCT 28.2 L MCV 99 MCHC 35.8 PLT 125 L RDW-CV 14.3 Comprehensive Metabolic Panel 31-Aug-2022 06:09:00 ResultValue Glucose, Serum 105 H NA 121 L K 3.2 L CL 81 L Bicarbonate, Serum 32 Anion Gap, Serum 11 BUN 7 CREAT 0.39 L GFR Male >90 Calcium, Serum 7.5 L ALB 3.2 L ALKP 162 H T Pro 5.5 L T Bili 2.9 H Alanine Aminotransferase, Serum 49 Aspartate Transaminase, Serum 144 H TSH with Reflex to Free T4 if Abnormal 30-Aug-2022 06:27:00 ResultValue Thyroid Stimulating Hormone, Serum 8.58 H Free Thyroxine, Serum 30-Aug-2022 06:27:00 ResultValue Free Thyroxine, Serum <0.25 L Radiology Results: Results: Assessment: 77-year-old man with a history of alcohol abuse, anemia, hypothyroidism, gout and hypertension, admitted with dysphagia, malaise, weakness and esophagitis, and found to have an incidental right-sided pleural-based pulmonary nodule of uncertain significance. The differential diagnosis includes: Scar; benign nodule; focal infection; or primary or metastatic malignancy. The patient may also have pulmonary hypertension. 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 Recommend: 1. Continue DVT prophylaxis with subcutaneous Lovenox and Synthroid. 2. Check echocardiogram--pending. 3. Keep oxygen saturation approximately 92 to 95%. 4. Incentive spirometry. 5. Follow-up with pulmonary medicine after discharge for a PET scan and pulmonary function tests. 6. The patient's pulmonary nodule is not amenable to bronchoscopic biopsy. 7. Will sign off at this time; please recall if further assistance is needed. Assessment and Plan: Code Status: Code StatusDNAR Electronic Signatures: Khang Wagner) (Signed 31-Aug-2022 10:30) Authored: Service, Subjective Data, Objective Data, Assessment and Plan, Note Completion Last Updated: 31-Aug-2022 10:30 by Khang Wagner) [facility] EMR ADDONon 08-31-2022 ADDON CONFIRMATION REQUEST REC'D Normal [facility] Comment on above: Performed By: #### M G #### [facility] [address] [place] [address] Echocardiogramon 08-31-2022 Echocardiography [facility] , [address] [address] and TRANSTHORACIC ECHOCARDIOGRAM REPORT Patient Name: CHRISTOS LYONS Reading Physician: [id number] Giovanny Blood DO Study Date: 08/31/2022 Referring Physician: MILES AHN MRN/PID: [id number] PCP: Accession/Order#: [id number] Department Location: Date of : 1945 Fellow: Gender: M Nurse: Admit Date: 08/28/2022 Farm Rancher: Hunter Navarro RDCS Admission Status: Inpatient - Routine Additional Staff: Height: 178.00 cm CC Report to: Weight: 70.00 kg Study Type: Echocardiogram BSA: 1.87 m2 Blood Pressure: 115 /58 mmHg Diagnosis/ICD: R60.0-Localized edema Indication: Edema Procedure/CPT: Echo Complete w Full Doppler-[id number] Patient History: Pertinent History: HLD, EtOH, HTN. Study Detail: The following Echo studies were performed: 2D, M-Mode, Doppler and color flow. Technically challenging study due to poor acoustic windows. Definity used as a contrast agent for endocardial border definition. Total contrast used for this procedure was 1.5 mL via IV push. PHYSICIAN INTERPRETATION: Left Ventricle: The left ventricular systolic function is low normal, with an estimated ejection fraction of 50-55%. There are no regional wall motion abnormalities. The left ventricular cavity size is normal. Left ventricular diastolic filling was indeterminate. Left Atrium: The left atrium is normal in size. Right Ventricle: The right ventricle is normal in size. There is normal right ventricular global systolic function. Right Atrium: The right atrium is normal in size. Aortic Valve: The aortic valve appears structurally normal. There is trace to mild aortic valve regurgitation. The peak instantaneous gradient of the aortic valve is 5.8 mmHg. Mitral Valve: The mitral valve is normal in structure. There is trace mitral valve regurgitation. Tricuspid Valve: The tricuspid valve is structurally normal. No evidence of tricuspid regurgitation. Pulmonic Valve: The pulmonic valve is structurally normal. There is no indication of pulmonic valve regurgitation. Pericardium: There is no pericardial effusion noted. Aorta: The aortic root is abnormal. Ascending aorta moderately enlarged at 4.7 cm. In comparison to the previous echocardiogram(s): There are no prior studies on this patient for comparison purposes. CONCLUSIONS: 1. Left ventricular systolic function is low normal with a 50-55% estimated ejection fraction. 2. Ascending aorta moderately enlarged at 4.7 cm. QUANTITATIVE DATA SUMMARY: 2D MEASUREMENTS: Normal Ranges: LAs: 3.46 cm (2.7-4.0cm) IVSd: 1.20 cm (0.6-1.1cm) LVPWd: 1.11 cm (0.6-1.1cm) LVIDd: 4.93 cm (3.9-5.9cm) LVIDs: 3.77 cm LV Mass Index: 115.6 g/m2 LV % FS 23.7 % LA VOLUME: Normal Ranges: LA Vol A4C: 45.4 ml (22+/-6mL/m2) LA Vol A2C: 46.8 ml LA Vol BP: 46.6 ml LA Vol Index A4C: 24.3ml/m2 LA Vol Index A2C: 25.0 ml/m2 LA Vol Index BP: 24.9 ml/m2 LA Area A4C: 16.5 cm2 LA Area A2C: 16.6 cm2 LA Major [place] A4C: 5.1 cm LA Major [place] A2C: 5.0 cm LA Vol A4C: 42.8 ml LA Vol A2C: 44.3 ml RA VOLUME BY A/L METHOD: Normal Ranges: RA Area A4C: 11.6 cm2 M-MODE MEASUREMENTS: Normal Ranges: Ao Root: 4.30 cm (2.0-3.7cm) LAs: 4.43 cm (2.7-4.0cm) AORTA MEASUREMENTS: Normal Ranges: Ao Sinus, d: 4.20 cm (2.1-3.5cm) Asc Ao, d: 4.70 cm (2.1-3.4cm) LV SYSTOLIC FUNCTION BY 2D PLANIMETRY (MOD): Normal Ranges: EF-A4C View: 46.6 % (>=55%) EF-A2C View: 50.1 % EF-Biplane: 49.0 % LV DIASTOLIC FUNCTION: Normal Ranges: MV Peak E: 0.61 m/s (0.7-1.2 m/s) MV Peak A: 0.83 m/s (0.42-0.7 m/s) E/A Ratio: 0.73 (1.0-2.2) MV e' 0.07 m/s (>8.0) MV lateral e' 0.07 m/s MV medial e' 0.07 m/s MV A Dur: 117.65 msec E/e' Ratio: 8.69 (<8.0) PulmV Sys Reynaldo: 33.92 cm/s PulmV Hummel Reynaldo: 28.40 cm/s PulmV S/D Reynaldo: 1.19 PulmV A Revs Reynaldo: 31.58 cm/s PulmV A Revs Dur: 76.12 msec MITRAL VALVE: Normal Ranges: MV DT: 262 msec (150-240msec) AORTIC VALVE: Normal Ranges: AoV Vmax: 1.20 m/s (<=1.7m/s) AoV Peak P.8 mmHg (<20mmHg) LVOT Max Reynaldo: 1.03 m/s (<=1.1m/s) LVOT VTI: 22.25 cm LVOT Diameter: 2.19 cm (1.8-2.4cm) AoV Area,Vmax: 3.24 cm2 (2.5-4.5cm2) AORTIC INSUFFICIENCY: AI Vmax: 3.58 m/s AI Half-time: 349 msec AI Decel Time: 1203 msec AI Decel Rate: 297.64 cm/s2 RIGHT VENTRICLE: RV 1 3 cm RV 2 2.3 cm RV 3 5.7 cm TAPSE: 14.0 mm RV s' 0.09 m/s TRICUSPID VALVE/RVSP: Normal Ranges: Peak TR Velocity: 2.18 m/s RV Syst Pressure: 22.1 mmHg (< 30mmHg) IVC Diam: 1.80 cm PULMONIC VALVE: Normal Ranges: PV Max Reynaldo: 1.1 m/s (0.6-0.9m/s) PV Max P.0 mmHg Pulmonary Veins: PulmV A Revs Dur: 76.12 msec PulmV A Revs Reynaldo: 31.58 cm/s PulmV Hummel Reynaldo: 28.40 cm/s PulmV S/D Reynaldo: 1.19 PulmV Sys Reynaldo: 33.92 cm/s AORTA: Asc Ao Diam 4.72 cm [id number] Giovanny Blood DO Electronically signed on 08/31/2022 at 5:12:06 PM Final Normal [facility] FOLATE, SERUMon 08-31-2022 Folate [Mass/Vol] 5.6 ng/mL Normal >5.0 [facility] Comment on above: Result Comment: Low <3.4 Borderline 3.4-5.0 Normal >5.0 . Biotin interference may cause falsely elevated results. Patients taking a Biotin dose of up to 5 mg/day should refrain from taking Biotin for 24 hours before sample collection. Providers may contact their local laboratory for further information. Performed By: #### M G #### [facility] [address] [place] [address] Folate, Serumon 08-31-2022 Folate [Mass/Vol] 5.6 ng/mL >5.0 [facility] Work Phone: Comment on above: Low <3.4Borderline 3 .4-5.0Normal >5.0. Biotin interference may cause falsely elevated results. Patients taking a Biotin dose of up to 5 mg/day should refrain from taking Biotin for 24 hours before sample collection. Providers may contact their local laboratory for further information. Laboratory - Chemistry and C hemistry - challengeon 08-31-2022 Albumin BCP dye [Mass/Vol] 3.2 g/dL below low threshold 3.4 - 5.0 [facility] Work Phone: ALP [Catalytic activity/Vol] 162 U/L above high threshold 33 - 136 [facility] Work Phone: ALT With P-5'-P [Catalytic activity/Vol] 49 U/L 10 - 52 [facility] Work Phone: Comment on above: Patients treated wit h Sulfasalazine may generate falsely decreased results for ALT. Anion gap [Moles/Vol] 11 mmol/L 10 - 20 [facility] Work Phone: AST With P-5'-P [Catalytic activity/Vol] 144 U/L above high threshold 9 - 39 [facility] Work Phone: Bilirubin [Mass/Vol] 2.9 mg/dL above high threshold 0.0 - 1.2 -[facility] Work Phone: Calcium [Mass/Vol] 7.5 mg/dL below low threshold 8.6 - 10.3 -[facility] Work Phone: Chloride [Moles/Vol] 81 mmol/L below low threshold 98 - 107 [facility] Work Phone: CO2 [Moles/Vol] 32 mmol/L 21 - 32 [facility] Work Phone: Creatinine [Mass/Vol] 0.39 mg/dL below low threshold See Below [facility] Work Phone: Comment on above: Reference Range: 0.5 0 - 1.30 Glucose [Mass/Vol] 105 mg/dL above high threshold 74 - 99 [facility] Work Phone: Potassium [Moles/Vol] 3.2 mmol/L below low threshold 3.5 - 5.3 -[facility] Work Phone: Protein [Mass/Vol] 5.5 g/dL below low threshold 6.4 - 8.2 -[facility] Work Phone: Sodium [Moles/Vol] 121 mmol/L below low threshold 136 - 145 -[facility] Work Phone: Urea nitrogen [Mass/Vol] 7 mg/dL 6 - 23 -[facility] Work Phone: Laboratory - Hematology and Cell countson 08-31-2022 Erythrocyte distribution width (RBC) [Ratio] 14.3 % See Below [facility] Work Phone: Comment on above: Reference Range: 11. 5 - 14.5 Hematocrit (Bld) [Volume fraction] 28.2 % below low threshold See Below [facility] Work Phone: Comment on above: Reference Range: 41. 0 - 52.0 Hemoglobin (Bld) [Mass/Vol] 10.1 g/dL below low threshold See Below [facility] Work Phone: Comment on above: Reference Range: 13. 5 - 17.5 MCHC (RBC) [Mass/Vol] 35.8 g/dL See Below [facility] Work Phone: Comment on above: Reference Range: 32. 0 - 36.0 MCV (RBC) [Entitic vol] 99 fL 80 - 100 [facility] Work Phone: Platelets (Bld) [#/Vol] 125 10*3/uL below low threshold 150 - 450 [facility] Work Phone: RBC (Bld) [#/Vol] 2.86 {x10E12/L} below low threshold See Below [facility] Work Phone: Comment on above: Reference Range: 4.5 0 - 5.90 WBC (Bld) [#/Vol] 7.5 10*3/uL 4.4 - 11.3 -[facility] Work Phone: No Panel Informationon 08-31 >90 >90 -[facility] Work Phone: Comment on above: CALCULATIONS OF ROSANA MATED GFR ARE PERFORMED USING THE 2020 CKD-EPI STUDY REFIT EQUATION WITHOUT THE RACE VARIABLE FOR THE IDMS-TRACEABLE CREATININE METHODS.https://jasn.asnjournals.org/content//ASN .9311294738 Nutrition Therapy-Assessment on 08-31-2022 Nutrition Therapy-Assessment Assessment Subjective/Objective: Note Type: Assessment Note Authored by: Registered Dietitian Supervisor Word Processing Nutrition Note: The patient is a 77 year old Male visit reason: failure to thrive. Nutrition Consult: MST Per H&P: CHRISTOS LYONS is a 77 year old Male with a past medical history of hypertension, hyperlipidemia, anemia, alcohol use disorder, BPH, anxiety, hypothyroidism, gouty arthritis who presented to [facility] complaining of worsening dysphagia to solid foods and malaise. He is able to swallow liquids and has had difficulty swallowing solids in the past 5 days getting worse to the point where he does not feel like eating. RDN chart review: MST triggered for unsure for wt loss and eating poor due to decreased appetite. No wt hx to reference. Current BMI 22.1, in normal range. Pt on 2g sodium diet with 1800ml fluid restriction. Per pt no change in appetite. Typically eats 2 meals a day, UBW 238#, potentially from fluid loss. Pt agreeable to supplement while admitted. Objective Information: Pain reported at 08/31 15:07: 0 = None Intake Output Urine 1550 mL Height/Weight: Height in cm: 177.8 centimeter(s) Weight (kg): 70 BMI (kg/m2): 22.142 square meter Weight history/ % weight change: none Significant Weight Gain: fluid related Recent Lab Results: Results: I have reviewed these laboratory results: Complete Blood Count Trending View [id number] 06:09:00 30-Aug-2022 06:27:00 White Blood Cell Count7.5 7.0 Red Blood Cell Count2.86 L 2.93 L HGB10.1 L 10.2 L HCT28.2 L 28.4 L MCV99 97 MCHC35.8 35.9 YDP108 L 118 L RDW-CV14.3 13.9 Comprehensive Metabolic Panel 31-Aug-2022 06:09:00 ResultValue Glucose, Serum 105 H NA 121 L K 3.2 L CL 81 L Bicarbonate, Serum 32 Anion Gap, Serum 11 BUN 7 CREAT 0.39 L GFR Male >90 Calcium, Serum 7.5 L ALB 3.2 L ALKP 162 H T Pro 5.5 L T Bili 2.9 H Alanine Aminotransferase, Serum 49 Aspartate Transaminase, Serum 144 H Phosphorus, Serum 31-Aug-2022 06:09:00 ResultValue Phosphorus, Serum 1.9 L Folate, Serum 31-Aug-2022 00:00:00 ResultValue Folate, Serum 5.6 Vitamin B12, Serum 31-Aug-2022 00:00:00 ResultValue Vitamin B12, Serum 556 Basic Metabolic Panel 30-Aug-2022 06:27:00 ResultValue Lab Comment: SOD CALLED RB TO IVY MOHAN, 08/30/2022 08:10 Glucose, Serum 109 H NA 119 LL K 3.2 L CL 80 L Bicarbonate, Serum 31 Anion Gap, Serum 11 BUN 9 CREAT 0.47 L GFR Male >90 Calcium, Serum 7.7 L Hepatic Function Panel 30-Aug-2022 06:27:00 ResultValue Aspartate Transaminase, Serum 144 H ALB 3.3 L T Bili 3.5 H Bilirubin, Serum Direct - Conjugated 2.0 H ALKP 164 H Alanine Aminotransferase, Serum 47 T Pro 5.8 L Lipid Panel, Non-Fasting 30-Aug-2022 06:27:00 ResultValue Cholesterol, Serum 161 . AGE DESIRABLE BORDERLINE HIGH HIGH 0-19 Y 0 - 169 170 - 199 >/= 200 20-24 Y 0 - 189 190 - 224 >/= 225 >24 Y 0 - 199 200 - 239 >/= 240 All ranges are based on fasting sam HDL Cholesterol, Serum 62.4 . AGE VERY LOW LOW NORMAL HIGH 0-19 Y < 35 < 40 40-45 ---- 20-24 Y ---- < 40 >45 ---- >24 Y ---- < 40 40-60 >60. Cholesterol/HDL Ratio 2.6 REF VALUESDESIRABLE < 3.4HIGH RISK > 5.0 Non-HDL Cholesterol (non-fasting panel) 99 AGE DESIRABLE BORDERLINE HIGH HIGH VERY HIGH 0-19 Y 0 - 119 120 - 144 >/= 145 >/= 160 20-24 Y 0 - 149 150 - 189 >/= 190 ---- >24 Y 30 MG/DL ABOVE LDL CHOLESTEROL GOAL. Lipid Panel 30-Aug-2022 06:27:00 ResultValue Cholesterol, Serum 161 . AGE DESIRABLE BORDERLINE HIGH HIGH 0-19 Y 0 - 169 170 - 199 >/= 200 20-24 Y 0 - 189 190 - 224 >/= 225 >24 Y 0 - 199 200 - 239 >/= 240 All ranges are based on fasting samp HDL Cholesterol, Serum 62.4 . AGE VERY LOW LOW NORMAL HIGH 0-19 Y < 35 < 40 40-45 ---- 20-24 Y ---- < 40 >45 ---- >24 Y ---- < 40 40-60 >60. Cholesterol/HDL Ratio 2.6 REF VALUESDESIRABLE < 3.4HIGH RISK > 5.0 LDL, Level 56 . NEAR BORD AGE DESIRABLE OPTIMAL HIGH HIGH VERY HIGH 0-19 Y 0 - 109 --- 110-129 >/= 130 ---- 20-24 Y 0 - 119 --- 120-159 >/= 160 ---- >24 Y 0 - VLDL, Serum 43 H Triglycerides, Serum 213 . AGE DESIRABLE BORDERLINE HIGH HIGH VERY HIGH 0 D-90 D 19 - 174 ---- ---- ----91 D- 9 Y 0 - 74 75 - 99 >/= 100 ---- 10-19 Y 0 - 89 90 - 129 >/= 130 ---- H Non-HDL Cholesterol 99 AGE DESIRABLE BORDERLINE HIGH HIGH VERY HIGH 0-19 Y 0 - 119 120 - 144 >/= 145 >/= 160 20-24 Y 0 - 149 150 - 189 >/= 190 ---- >24 Y 30 MG/DL ABOVE LDL CHOLESTEROL GOAL. Hemoglobin A1C, Level 30-Aug-2022 06:27:00 ResultValue Estimated Average Glucose 134 Hemoglobin A1C, Level 6.3 Diagnosis of Diabetes-Adults Non-Diabetic: < or = 5.6% Increased risk for developing diabetes: 5.7-6.4% Diagnostic of diabetes: > or = 6.5%. Monitoring of Diabetes Age (y) Therapeutic Goal (%) Adults: >1 A Magnesium, Serum 30-Aug-2022 06:27:00 ResultValue Magnesium, Serum 1.70 N (more content not included)... Normal [facility] PHOSPHORUSon 08-31-2022 Phosphate [Mass/Vol] 1.9 mg/dL Low 2.5 - 4.9 [facility] [place] Comment on above: Result Comment: The performance characteristics of phosphorus testing in heparinized plasma have been validated by the individual laboratory site where testing is performed. Testing on heparinized plasma is not approved by the FDA; however, such approval is not necessary. Performed By: #### P [facility] ####[facility] [id number] [place] [address] Phosphorus, Serumon 09-01-19 23 Phosphate [Mass/Vol] 1.9 mg/dL below low threshold 2.5 - 4.9 [facility] Work Phone: Comment on above: The performance fransisca acteristics of phosphorus testing in heparinized plasma have been validated by the individual laboratory site where testing is performed. Testing on heparinized plasma is not approved by the FDA; however, such approval is not necessary. STOOL PATHOGEN PCR PANELon 0 08-31-2022 Campylobacter sp DNA.diarrheagenic NEVIN+probe Ql (Stl) Not detected See Below [facility] Work Phone: Comment on above: Reference Range: NOT DETECTED E. coli stx1 gene NEVIN+probe Ql (Unsp spec) Not detected See Below [facility] Work Phone: Comment on above: Reference Range: NOT DETECTED E. coli stx2 gene NEVIN+probe Ql (Unsp spec) Not detected See Below [facility] Work Phone: Comment on above: Reference Range: NOT DETECTED Norovirus genogroup I and II RNA NEVIN+probe Nom (Stl) Not detected See Below [facility] Work Phone: Comment on above: Reference Range: NOT DETECTED Rotavirus RNA NEVIN+probe Nom (Stl) Not detected See Below [facility] Work Phone: Comment on above: Reference Range: NOT DETECTED The enteric PCR panel is a panel of sensitive and specific amplified nucleic acid tests indicated as an aid in the diagnosis of specific bacterial and viral agents of gastrointestinal illness, in conjunction with other clinical, laboratory, and epidemiological information. This test is not approved for monitoring these infections. Monitoring is available for Salmonella and Shigella infections-request test Stool PCR Follow-Up (STLPF). Monitoring tests are not available at this time for other enteric agents in this panel. Shigella sp DNA NEVIN+probe Ql (Unsp spec) Not detected See Below [facility] Work Phone: Comment on above: Reference Range: NOT DETECTED Vibrio sp DNA NEVIN+probe Nom (Unsp spec) Not detected See Below [facility] Work Phone: Comment on above: Reference Range: NOT DETECTED Yersinia sp DNA NEVIN+probe Nom (Unsp spec) Not detected See Below [facility] Work Phone: Comment on above: SOURCE: Reference Ra nge: NOT DETECTED STOOL PATHOGEN PCR PANEL Not detected See Below [facility] Work Phone: Comment on above: Reference Range: NOT DETECTED VITAMIN B12on 08-31-2022 Cobalamin (Vitamin B12) [Mass/Vol] 556 pg/mL Normal 211 - 911 [facility] Comment on above: Performed By: #### V TB12 #### [facility] [address] [place] [address] Vitamin B12, Serumon 023 Cobalamin (Vitamin B12) [Mass/Vol] 556 pg/mL 211 - 911 [facility] Work Phone: BASIC METABOLIC PANELon 08-08 Anion gap [Moles/Vol] 11 mmol/L Normal 10 - 20 [facility] Comment on above: Order Comment: SOD C CONSUELO RB TO IVY SAMLULAM, 08/30/2022 08:10 Performed By: #### G ZOHREH #### [facility] [address] [place] [address] Calcium [Mass/Vol] 7.7 mg/dL Low 8.6 - 10.3 [facility] Comment on above: Order Comment: SOD C POORNIMAD RB TO IVY SAMPRAM, 08/30/2022 08:10 Performed By: #### G ZOHREH #### [facility] [address] [place] [address] Chloride [Moles/Vol] 80 mmol/L Low 98 - 107 [facility] [facility] Comment on above: Order Comment: SOD C ALLED RB TO IVY SAMPRAM, 08/30/2022 08:10 Performed By: #### G ZOHREH #### [facility] [address] [place] [address] Creatinine [Mass/Vol] 0.47 mg/dL Low 0.50 - 1.30 [facility] Comment on above: Order Comment: SOD C ALLED RB TO IVY SAMPRAM, 08/30/2022 08:10 Performed By: #### G ZOHREH #### [facility] [address] [place] [address] eGFR MALE >90 Normal >90 [facility] Comment on above: Order Comment: SOD C ALLED RB TO IVY SAMPRAM, 08/30/2022 08:10 Result Comment: CALC ULATIONS OF ESTIMATED GFR ARE PERFORMED USING THE 2020 CKD-EPI STUDY REFIT EQUATION WITHOUT THE RACE VARIABLE FOR THE IDMS-TRACEABLE CREATININE METHODS. https://jasn.asnjournals.org/content/early//ASN.5421371 988 Performed By: #### G ZOHREH #### [facility] [address] [place] [address] Glucose [Mass/Vol] 109 mg/dL High 74 - 99 [facility] Comment on above: Order Comment: SOD C ALLED RB TO IVY SAMPRAM, 08/30/2022 08:10 Performed By: #### G ZOHREH #### [facility] [address] [place] [address] HCO3 (Bld) [Moles/Vol] 31 mmol/L Normal 21 - 32 [facility] Comment on above: Order Comment: SOD C ALLED RB TO IVY SAMPRAM, 08/30/2022 08:10 Performed By: #### G ZOHREH #### [facility] [address] [place] [address] Potassium [Moles/Vol] 3.2 mmol/L Low 3.5 - 5.3 [facility] Comment on above: Order Comment: SOD C ALLED RB TO IVY MOHAN, 08/30/2022 08:10 Performed By: #### G ZOHREH #### [facility] [address] [place] [address] Sodium [Moles/Vol] 119 mmol/L Critically low 136 - 145 [facility] Comment on above: Order Comment: SOD C ALLED RB TO IVY MOHAN, 08/30/2022 08:10 Result Comment: SOD CALLED RB TO IVY MOHAN, 08/30/2022 08:10 Performed By: #### G ZOHREH #### [facility] [address] [place] [id number] Urea nitrogen [Mass/Vol] 9 mg/dL Normal 6 - 23 [facility] Comment on above: Order Comment: SOD C ALLED RB TO IVY MOHAN, 08/30/2022 08:10 Performed By: #### G ZOHREH #### [facility] [address] [place] [id number] C Reactive Protein, Serumon 08-30-2022 CRP [Mass/Vol] 12.67 mg/dL Abnormal [facility] Work Phone: Comment on above: REF VALUE< 1.00 C-REACTIVE PROTEINon 023 C-REACTIVE PROTEIN 12.67 mg/dL Abnormal [facility] Comment on above: Result Comment: REF VALUE < 1.00 Performed By: #### C RP ####[facility] [id number] [place] [id number] CBCon 08-30-2022 Platelets (Bld) [#/Vol] 118 10*3/uL Low 150 - 450 [facility] Comment on above: Result Comment: Plat elet count may be higher than reported due to presence of Platelet Clumps. Performed By: #### R ENAL #### [facility] [address] [place] [id number] Erythrocyte distribution width (RBC) [Ratio] 13.9 % Normal 11.5 - 14.5 [facility] Comment on above: Performed By: #### R ENAL #### [facility] [address] [place] [id number] Hematocrit (Bld) [Volume fraction] 28.4 % Low 41.0 - 52.0 [facility] Comment on above: Performed By: #### R ENAL #### [facility] [address] [place] [id number] Hemoglobin (Bld) [Mass/Vol] 10.2 g/dL Low 13.5 - 17.5 [facility] Comment on above: Performed By: #### R ENAL #### [facility] [address] [place] [id number] MCHC (RBC) [Mass/Vol] 35.9 g/dL Normal 32.0 - 36.0 [facility] Comment on above: Performed By: #### R ENAL #### [facility] [address] [place] [id number] MCV (RBC) [Entitic vol] 97 fL Normal 80 - 100 [facility] Comment on above: Performed By: #### R ENAL #### [facility] [address] [place] [id number] RBC 2.93 x10E12/L Low 4.50 - 5.90 [facility] Comment on above: Performed By: #### R ENAL #### [facility] [address] [place] [id number] WBC (Bld) [#/Vol] 7.0 10*3/uL Normal 4.4 - 11.3 [facility] Comment on above: Performed By: #### R ENAL #### [facility] [address] [place] [id number] [address] LOWER EXT WO CONTRASTon 0 08-30-2022 CT LOWER EXT WO CONTRAST Patient Name: CHRISTOS LYONS STUDY: CT LOWER EXT WO CONTRAST; Right; 08/30/2022 7:32 pm INDICATION: right knee pain . COMPARISON: Radiographs of the same day ACCESSION NUMBER(S): [id number] ORDERING CLINICIAN: MILES AHN TECHNIQUE: Noncontrast images of the right knee with coronal and sagittal reconstructed images. FINDINGS: There is severe tricompartmental osteoarthrosis, with large marginal osteophytes. No acute fracture is seen. Alignment is within normal limits. There are intra-articular bodies in the posterior joint space measuring up to 1.2 cm. Well-circumscribed erosions in the intercondylar notch, posterolateral tibial plateau and tibia-fibular joint may be degenerative or secondary to pressure erosion is may be seen with ganglion cyst. There is a small suprapatellar joint effusion. Subcutaneous edema noted in the lateral knee and anterolateral proximal leg. IMPRESSION: No acute fracture or malalignment. Severe degenerative changes as above. Small joint effusion. Anterolateral knee/proximal leg edema. Electronically signed by: KHLOE LYLES MD Normal [facility] CT Low Extremity without Con traston 08-30-2022 CT Lower extremity WO contrast Normal [facility]: Daily Progress Note-Gastroen terologyon 08-30-2022 Daily Progress Note-Gastroenterolog y Service: Gastroenterology Subjective Data: CHRISTOS LYONS is a 77 year old Male who is Hospital Day # 3. Patient has ongoing dysphagia. Tolerating liquids/apple sauce. Objective Data: Objective Information: T PRBPMAPSpO2 [id number]/7195% Date/Time08/30 11:5808/30 11:5808/30 11:5808/30 11:5808/30 11:58 Range(36.2C - 37.1C ) (64 - 74 ) (16 - 20 ) (99 - 136 )/ (53 - 75 ) (67% - 97% ) Highest temp of 37.1 C was recorded at 08/29 6:15 Pain reported at 08/29 8:10: 0 = None Physical Exam by System: Constitutional: Well developed, awake/alert/oriented x3, no distress, alert and cooperative Respiratory/Thorax: Patent airways, CTAB, normal breath sounds with good chest expansion, thorax symmetric Cardiovascular: Regular, rate and rhythm, no murmurs, 2+ equal pulses of the extremities, normal S 1and S 2 Gastrointestinal: Nondistended, soft, non-tender, no rebound tenderness or guarding, no masses palpable, no organomegaly, +BS, no bruits Medication: Medications: Continuous Medications ------ 1. Lactated Ringers Infusion: 1000 mL IntraVenous Scheduled Medications ------ 1. Allopurinol: 300 mg Oral Every 24 Hours 2. Atorvastatin: 40 mg Oral Daily 3. Emollient Topical Cream: 1 application(s) Topical 3 Times a Day 4. Enoxaparin SubCutaneous: 40 mg SubCutaneous Every 24 Hours 5. Folic Acid: 1 mg Oral Daily 6. Levothyroxine: 75 microgram(s) Oral Daily 7. Lidocaine 4% TransDermal: 1 patch TransDermal Every 24 Hours 8. Multivitamin with Minerals: 1 tablet(s) Oral Daily 9. Pantoprazole Injectable: 40 mg IntraVenous Push Every 24 Hours 10. Thiamine Injectable: 100 mg IntraVenous Push Daily 11. Urea 40% Topical: 1 application(s) Topical 3 Times a Day PRN Medications ------ 1. LORazepam Injectable: 0.5 mg IntraVenous Push Every 2 Hours 2. LORazepam Injectable: 1 mg IntraVenous Push Every 2 Hours 3. LORazepam Injectable: 2 mg IntraVenous Push Every 2 Hours 4. Ondansetron Injectable: 4 mg IntraVenous Push Every 4 Hours Conditional Medication Orders ------ 1. Perflutren Lipid Microsphere (Activated) 1.3 mL / NaCL 0.9% T.V. 10 mL Injectable: 0.5 mL IntraVenous Push Once Currently Suspended Medications ------ 1. Gabapentin: 300 mg Oral 2 Times a Day Recent Lab Results: Results: CBC: 08/30/2022 06:27 \ Hgb / \ 10.2 L / WBC Plt 7.0 118 L / Hct \ / 28.4 L \ RBC: 2.93 L MCV: 97 BMP: 08/30/2022 06:27 NA+ Cl- BUN / 119 LL 80 L 9 / ------ Glucose - 109 H K+ HCO3- Creat \ 3.2 L 31 0.47 L \ Calcium : 7.7 L Anion Gap : 11 Radiology Results: Results: Impression: Respiratory motion artifact slightly limits evaluation of lung parenchyma. There is slightly branching subpleural irregular nodular density laterally in theright upper lobe, measuring up to 2.0 by [...] and adjacent fat stranding also extending about (more content not included)... Normal [facility] Daily Progress Note-Medicine on 08-30-2022 Daily Progress Note-Medicine Service: Medicine Subjective Data: CHRISTOS LYONS is a 77 year old Male who is Hospital Day # 3. Brother says he seems more sleepy today. He is having some looser stools. Objective Data: Objective Information: T PRBPMAPSpO2 [id number]/7195% Date/Time08/30 11: 11: 11: 11: 11:58 Range(36.2C - 37.1C ) (64 - 74 ) (16 - 20 ) (99 - 136 )/ (53 - 75 ) (67% - 97% ) Highest temp of 37.1 C was recorded at 08/29 6:15 Pain reported at 08/29 8:10: 0 = None Physical Exam by System: Constitutional: no acute distress Respiratory/Thorax: fairly CTAB Cardiovascular: regular rhythm, no murmurs Gastrointestinal: hypoactive BS, minimally tender, slightly distended Extremities: trace edema in legs Neurological: alert and oriented, moving all extremities Psychological: flat affect Skin: no rashes or lesions Recent Lab Results: Results: CBC: 08/30/2022 06:27 \ Hgb / \ 10.2 L / WBC Plt 7.0 118 L / Hct \ / 28.4 L \ RBC: 2.93 L MCV: 97 BMP: 08/30/2022 06:27 NA+ Cl- BUN / 119 LL 80 L 9 / ------ Glucose - 109 H K+ HCO3- Creat \ 3.2 L 31 0.47 L \ Calcium : 7.7 L Anion Gap : 11 Assessment and Plan: Code Status: Code StatusDNAR Assessment: 77 yoM with anorexia, dysphagia, malaise. Findings [...] this point; can get outpatient PET scan/biopsy. 08/30: Sodium worse at 119 today, so EGD cancelled. Hyponatremia, hypervolemic Alcoholic liver disease Malnutrition Cytopenia Lung nodule Esophagitis, dysphagia Hypothyroidism HLD Right knee OA - IV lasix again today; will lower fluid restriction further; low Na is multi-factorial - possible EGD tomorrow - will need SNF on dc - outpt PET scan eventually - starting new synthroid - CIWA - echo - check right knee x-ray - lovenox ppx Electronic Signatures: Miles Ahn) (Signed 30-Aug-2022 12:32) Authored: Service, Subjective Data, Objective Data, Assessment and Plan, Note Completion Last Updated: 30-Aug-2022 12:32 by Miles Ahn) [facility] Daily Progress Note-Nephrolo gyon 08-30-2022 Daily Progress Note-Nephrology Service: Nephrology Subjective Data: CHRISTOS LYONS is a 77 year old Male who is Hospital Day # 3. Seen and examined. Sitting upright in bed. No acute events, he does not offer new complaints. Chart/labs/meds/notes/imag ing/VS reviewed. Objective Data: Objective Information: T PRBPMAPSpO2 [id number]/7195% Date/Time08/30 11: 11: 11: 11: 11:58 Range(36.2C - 37.1C ) (64 - 74 ) (16 - 20 ) (99 - 136 )/ (53 - 75 ) (67% - 97% ) Highest temp of 37.1 C was recorded at 08/29 6:15 Pain reported at 08/29 8:10: 0 = None Physical Exam by System: Constitutional: Well developed, awake/alert/oriented x3, no distress, alert and cooperative Eyes: PERRL, EOMI, clear sclera ENMT: mucous membranes moist Head/Neck: Neck supple, no JVD, trachea midline Respiratory/Thorax: Lungs are Clear to auscultation Cardiovascular: Regular, rate and rhythm, normal S 1and S 2 Gastrointestinal: Nondistended, soft, non-tender, no rebound tenderness or guarding Extremities: Anasarca, improving Neurological: Awake and alert Cranial nerves II through XII grossly intact Breast: No masses, tenderness, no discharge or discoloration Lymphatic: No significant lymphadenopathy Psychological: Appropriate mood and behavior Skin: Dry scaly skin of the lower extremities bilaterally Medication: Medications: Continuous Medications ------ 1. Lactated Ringers Infusion: 1000 mL IntraVenous Scheduled Medications ------ 1. Allopurinol: 300 mg Oral Every 24 Hours 2. Atorvastatin: 40 mg Oral Daily 3. Emollient Topical Cream: 1 application(s) Topical 3 Times a Day 4. Enoxaparin SubCutaneous: 40 mg SubCutaneous Every 24 Hours 5. Folic Acid: 1 mg Oral Daily 6. Levothyroxine: 75 microgram(s) Oral Daily 7. Lidocaine 4% TransDermal: 1 patch TransDermal Every 24 Hours 8. Multivitamin with Minerals: 1 tablet(s) Oral Daily 9. Pantoprazole Injectable: 40 mg IntraVenous Push Every 24 Hours 10. Psyllium Packet: 1 packet(s) Oral 2 Times a Day 11. Thiamine Injectable: 100 mg IntraVenous Push Daily 12. Urea 40% Topical: 1 application(s) Topical 3 Times a Day PRN Medications ------ 1. LORazepam Injectable: 0.5 mg IntraVenous Push Every 2 Hours 2. LORazepam Injectable: 1 mg IntraVenous Push Every 2 Hours 3. LORazepam Injectable: 2 mg IntraVenous Push Every 2 Hours 4. Ondansetron Injectable: 4 mg IntraVenous Push Every 4 Hours Conditional Medication Orders ------ 1. Perflutren Lipid Microsphere (Activated) 1.3 mL / NaCL 0.9% T.V. 10 mL Injectable: 0.5 mL IntraVenous Push Once Currently Suspended Medications ------ 1. Gabapentin: 300 mg Oral 2 Times a Day Recent Lab Results: Results: CBC: 08/30/2022 06:27 \ Hgb / \ 10.2 L / WBC Plt 7.0 118 L / Hct \ / 28.4 L \ RBC: 2.93 L MCV: 97 BMP: 08/30/2022 06:27 NA+ Cl- BUN / 119 LL 80 L 9 / ------ Glucose - 109 H K+ HCO3- Creat \ 3.2 L 31 0.47 L \ Calcium : 7.7 L Anion Gap : 11 Radiology Results: Results: Impression: Respiratory motion artifact slightly limits evaluation of lung parenchyma. There is slightly branching subpleural irregular nodular density laterally in theright upper lobe, measuring up to 2.0 by [...] technique is not optimized for PE detection. (more content not included)... Normal [facility] Daily Progress Note-Pulmonol ogyon 08-30-2022 Daily Progress Note-Pulmonology Service: Pulmonology Subjective Data: CHRISTOS LYONS is a 77 year old Male who is Hospital Day # 3. S: Denies shortness of breath, pain or cough. On room air. EGD for today has been canceled. Objective Data: Objective Information: T PRBPMAPSpO2 [id number]/7196% Date/Time08/30 8: 8: 8: 8: 8:01 Range(36.2C - 37.1C ) (64 - 74 ) (16 - 20 ) (99 - 136 )/ (53 - 75 ) (67% - 97% ) Highest temp of 37.1 C was recorded at 08/29 6:15 Pain reported at 08/29 8:10: 0 = None Physical exam: General-awake, alert and in no acute distress; on room air. Lungs-clear, without wheezes, rales or rhonchi. Heart-regular rate and rhythm. Abdomen-positive bowel sounds. Extremities-2+ lower extremity edema; probable clubbing of the fingers. Skin-no rashes. Medication: Medications: Continuous Medications ------ No continuous medications are active Scheduled Medications ------ 1. Allopurinol: 300 mg Oral Every 24 Hours 2. Atorvastatin: 40 mg Oral Daily 3. Emollient Topical Cream: 1 application(s) Topical 3 Times a Day 4. Enoxaparin SubCutaneous: 40 mg SubCutaneous Every 24 Hours 5. Folic Acid: 1 mg Oral Daily 6. Gabapentin: 300 mg Oral 2 Times a Day 7. Levothyroxine: 75 microgram(s) Oral Daily 8. Lidocaine 4% TransDermal: 1 patch TransDermal Every 24 Hours 9. Multivitamin with Minerals: 1 tablet(s) Oral Daily 10. Pantoprazole Injectable: 40 mg IntraVenous Push Every 24 Hours 11. PHENobarbital: 64.8 mg Oral 3 Times a Day 12. Thiamine Injectable: 100 mg IntraVenous Push Daily 13. Urea 40% Topical: 1 application(s) Topical 3 Times a Day PRN Medications ------ 1. LORazepam Injectable: 0.5 mg IntraVenous Push Every 2 Hours 2. LORazepam Injectable: 1 mg IntraVenous Push Every 2 Hours 3. LORazepam Injectable: 2 mg IntraVenous Push Every 2 Hours 4. Ondansetron Injectable: 4 mg IntraVenous Push Every 4 Hours 5. oxyCODONE Immediate Release: 5 mg Oral Every 4 Hours Conditional Medication Orders ------ 1. Perflutren Lipid Microsphere (Activated) 1.3 mL / NaCL 0.9% T.V. 10 mL Injectable: 0.5 mL IntraVenous Push Once Recent Lab Results: Results: I have reviewed these laboratory results: Basic Metabolic Panel 30-Aug-2022 06:27:00 ResultValue Lab Comment: SOD CALLED RB TO IVY MOHAN, 08/30/2022 08:10 Glucose, Serum 109 H NA 119 LL K 3.2 L CL 80 L Bicarbonate, Serum 31 Anion Gap, Serum 11 BUN 9 CREAT 0.47 L GFR Male >90 Calcium, Serum 7.7 L Hepatic Function Panel 30-Aug-2022 06:27:00 ResultValue Aspartate Transaminase, Serum 144 H ALB 3.3 L T Bili 3.5 H Bilirubin, Serum Direct - Conjugated 2.0 H ALKP 164 H Alanine Aminotransferase, Serum 47 T Pro 5.8 L TSH with Reflex to Free T4 if Abnormal 30-Aug-2022 06:27:00 ResultValue Thyroid Stimulating Hormone, Serum 8.58 H Complete Blood Count 30-Aug-2022 06:27:00 ResultValue White Blood Cell Count 7.0 Red Blood Cell Count 2.93 L HGB 10.2 L HCT 28.4 L MCV 97 MCHC 35.9 PLT 118 L RDW-CV 13.9 Free Thyroxine, Serum 30-Aug-2022 06:27:00 ResultValue Free Thyroxine, Serum <0.25 L C Reactive Protein, Serum 30-Aug-2022 06:27:00 ResultValue C Reactive Protein, Serum 12.67 A Radiology Results: Results: Assessment: 77-year-old man with a history of hypertension, anemia, alcohol abuse, anxiety, BPH, hypothyroidism, gout and DJD, admitted with a productive cough, dysphagia, malaise and weakness, and found to have possible esophagitis, and a subpleural right upper lobe pulmonary nodule of uncertain etiology. The differential diagnosis of the patient's pulmonary nodule is benign scar, focal infection or occult malignancy. The nodule is not amenable to bronchoscopic biopsy. There is no bronchospasm. Recommend: 1. PET scan as an outpatient after discharge. 2. Check echocardiogram--pending. 3. Incentive spirometry. 4. Continue Lovenox and Synthroid. 5. Keep oxygen saturation approximately 92 to 95%. 6. Follow-up with pulmonary medicine as an outpatient for pulmonary function test and a PET scan. Assessment and Plan: Daily Risk Screen: Does patient have an indwelling urinary cathetern/a consulting service Does patient have a central linen/a consulting service Code Status: Code StatusDNAR Advance Care Planning: Advance Care Planning: Patient didn't wish to or was unable to provide advance care plan Electronic Signatures: Khang Wagner) (Signed 30-Aug-2022 11:16) Authored: Service, Subjective Data, Objective Data, Assessment and Plan, Note Completion Last Updated: 30-Aug-2022 11:16 by Khang Wagner) [facility] Discharge [id number] Discharge Profile2 Discharge Orders: Anticipated Discharge Date: Anticipated Discharge [id number] Anticipated Discharge Time09:08 DNAR: Code Status at Discharge: DNAR Was Extending the DNAR Status Following Discharge Discussed w/ Patient/Family: n/a- patient already has a completed DNR State Form [place] DNR State Form Status: DNR Comfort Care Arrest Activity: activity as tolerated. May shower. Diet: Dietlow sodium Fluid Restriction1.5L Labs 1: Lab Test(s)CBC, Comprehensive Metabolic Panel Date To Be Drawn09/06/2022 Fax Results Satya Maynard, #[phone] Gold Form Orders: Care Recommendation: I recommend that INPATIENT care is required at:Skilled Provider CertificationATTENDING: I certify that inpatient care is required at the level recommended above. To the best of my knowledge, all information provided about the individual is a true and accurate reflection of the individual's condition. Attending ProviderCaesar Sal Attending Provider [id number] Therapy Orders: Occupational Therapy OrdersEval and Treat ([facility]) Physical Therapy OrdersEval and Treat ([facility]) Provider Follow Up: Physician To Follow at Skilled/RehabAttending Physician at Skilled/Rehab Provider FINAL REVIEW of Orders: Final Review: Final Review of Medication Reconciliation and Orders Completedby Physician Reviewing ProviderCaesar Sal MD at 04-Sep-2022 09:12:18 Appointments: Follow-Up Appointment 01: Physician/Dept/Service. Malou Bowen - Pulmonary Scheduled Date/[id number] 08:[address], [place] [address] Phone [phone] CommentsPlease wear a mask when entering the building. Please arrive 10-15 minutes early, bring photo ID, current list of medications & dosages, insurance cards and any copay that may apply. If unable to keep this appointment, please call to cancel at least 24 hrs prior to appointment. Follow-Up Appointment 02: Physician/Dept/Service. Lucas CTsx; PCP, Dr Maynard CommentsOrder received after discharge Follow-Up Appointment 03: Physician/Dept/Service. Cy Maynard, Nephrology CommentsOrder received after discharge Gold Form - Nursing Summary: Special Treatments/Procedures (in past 14 days): Chemotherapyno Dialysisno IV Medicationno Oxygen Therapyno Transfusionsno Feverno Radiationno Ventilatorno Tracheostomyno Suctioningno Nutrition: Nutritional Statusfeeds self Sensory/Comfort: Visionadequate Hearingadequate Speechclear Painno Elimination: Bladderincontinent Bowelincontinent Last Bowel [id number] Safety: Siderailsyes Restraintsno Sitterno Medication/Hygiene/Mobilit y: Medication Administrationassist Bathingassist Dressingassist Bed Mobilityassist Wheelchairassist Transfersassist Ambulationassist Electronic Signatures: Taj Vasquez (PT ACC REP) (Signed 30-Aug-2022 16:14) Authored: Discharge Orders, Appointments, Gold Form - Banking Center Manager Summary Ros Rowe (PT SVS REP) (Signed 07-Sep-2022 09:19) Authored: Discharge Orders, Appointments Caesar Sal) (Signed 04-Sep-2022 09:12) Authored: Discharge Orders, Gold Form Orders, Provider FINAL REVIEW of Orders, Appointments Alysa Douglas (REGULO) (Signed 04-Sep-2022 10:55) Authored: Discharge Orders, Gold Form - Nursing Summary Last Updated: 07-Sep-2022 09:19 by Ros Rowe (PT SVS REP) Normal [facility] HEMOGLOBIN A1Con 08-30-2022 Glucose [Mass/Vol] 134 mg/dL Normal [facility] Comment on above: Performed By: #### V TB12 #### [facility] [id number] [place] [address] HbA1c (Bld) [Mass fraction] 6.3 % Abnormal [facility] Comment on above: Result Comment: Diag nosis of Diabetes-Adults Non-Diabetic: < or = 5.6% Increased risk for developing diabetes: 5.7-6.4% Diagnostic of diabetes: > or = 6.5% . Monitoring of Diabetes Age (y) Therapeutic Goal (%) Adults: >18 <7.0 Pediatrics: 13-18 <7.5 7-12 <8.0 0- 6 7.5-8.5 [employer]. Diabetes Care 33(S1), May 2009. Performed By: #### V TB12 #### [facility] [address] [place] [address] HEPATIC FUNCTION PANELon Albumin [Mass/Vol] 3.3 g/dL Low 3.4 - 5.0 [facility] Comment on above: Performed By: #### V TB12 #### [facility] [address] [place] [address] ALP [Catalytic activity/Vol] 164 U/L High 33 - 136 [facility] Comment on above: Performed By: #### V TB12 #### [facility] [address] [place] [address] ALT [Catalytic activity/Vol] 47 U/L Normal 10 - 52 [facility] Comment on above: Result Comment: Raysa ents treated with Sulfasalazine may generate falsely decreased results for ALT. Performed By: #### V TB12 #### [facility] [address] [place] [address] AST [Catalytic activity/Vol] 144 U/L High 9 - 39 [facility] Comment on above: Performed By: #### V TB12 #### [facility] [address] [place] [address] Bilirubin [Mass/Vol] 3.5 mg/dL High 0.0 - 1.2 [facility] [place] [facility] Comment on above: Performed By: #### V TB12 #### [facility] [address] [place] [address] Bilirubin.indirect [Mass/Vol] 2.0 mg/dL High 0.0 - 0.3 [facility] Comment on above: Performed By: #### V TB12 #### [facility] [address] [place] [address] Protein [Mass/Vol] 5.8 g/dL Low 6.4 - 8.2 [facility] Comment on above: Performed By: #### V TB12 #### [facility] [address] [place] [address] HEPATITIS PANEL,ACUTE (HCFA) on 08-30-2022 HEPATITIS A AB-IGM Non-Reactive Normal NONREACTIVE [facility] Comment on above: Result Comment: Biot in interference may cause falsely decreased results. Patients taking a Biotin dose of up to 5 mg/day should refrain from taking Biotin for 24 hours before sample collection. Providers may contact their local laboratory for further information. Performed By: #### M G #### [facility] [address] [place] [address] HEPATITIS B CORE AB,IGM Non-Reactive Normal NONREACTIVE [facility] Comment on above: Result Comment: Resu lts from patients taking biotin supplements or receiving high-dose biotin therapy should be interpreted with caution due to possible interference with this test. Providers may contact their local laboratory for further information. Performed By: #### M G #### [facility] [address] [place] [id number] HEPATITIS C AB Non-Reactive Normal NONREACTIVE [facility] Comment on above: Result Comment: Resu lts from patients taking biotin supplements or receiving high-dose biotin therapy should be interpreted with caution due to possible interference with this test. Providers may contact their local laboratory for further information. Performed By: #### M G #### [facility] [address] [place] [id number] HEP.B SURFACE AG Non-Reactive Normal NONREACTIVE [facility] Comment on above: Result Comment: Biot in interference may cause falsely decreased results. Patients taking a Biotin dose of up to 5 mg/day should refrain from taking Biotin for 24 hours before sample collection. Providers may contact their local laboratory for further information. Performed By: #### M G #### [facility] [address] [id number] Lab Specimen Source Normal [facility] Comment on above: Performed By: #### M G #### [facility] [address] [place] [id number] Hemoglobin A1Con 08-30-2022 Glucose [Mass/Vol] 134 mg/dL -[facility] Work Phone: HbA1c (Bld) [Mass fraction] 6.3 % Abnormal -[facility] Work Phone: Comment on above: Diagnosis of Diabete s-Adults Non-Diabetic: < or = 5.6% Increased risk for developing diabetes: 5.7-6.4% Diagnostic of diabetes: > or = 6.5%. Monitoring of Diabetes Age (y) Therapeutic Goal (%) Adults: >18 <7.0 Pediatrics: 13-18 <7.5 7-12 <8.0 0- 6 7.5-8.5 [employer]. Diabetes Care 33(S1), May 2009. Hepatic Function Panelon Albumin BCP dye [Mass/Vol] 3.3 g/dL below low threshold 3.4 - 5.0 [facility] Work Phone: ALP [Catalytic activity/Vol] 164 U/L above high threshold 33 - 136 [facility] Work Phone: ALT With P-5'-P [Catalytic activity/Vol] 47 U/L 10 - 52 [facility] Work Phone: Comment on above: Patients treated wit h Sulfasalazine may generate falsely decreased results for ALT. AST With P-5'-P [Catalytic activity/Vol] 144 U/L above high threshold 9 - 39 [facility] Work Phone: Bilirubin [Mass/Vol] 3.5 mg/dL above high threshold 0.0 - 1.2 [facility] Work Phone: Bilirubin.direct [Mass/Vol] 2.0 mg/dL above high threshold 0.0 - 0.3 [facility] Work Phone: Protein [Mass/Vol] 5.8 g/dL below low threshold 6.4 - 8.2 [facility] Work Phone: Hepatitis Panel, Acute (HCFA )on 08-30-2022 HAV IgM IA Ql Non-Reactive See Below [facility] Work Phone: Comment on above: SOURCE: Reference Ra ramireze: NONREACTIVE Biotin interference may cause falsely decreased results. Patients taking a Biotin dose of up to 5 mg/day should refrain from taking Biotin for 24 hours before sample collection. Providers may contact their local laboratory for further information. Hepatitis Panel, Acute (HCFA) Non-Reactive See Below [employer] [facility] Work Phone: Comment on above: Reference Range: NON REACTIVE Results from patients taking biotin supplements or receiving high-dose biotin therapy should be interpreted with caution due to possible interference with this test. Providers may contact their local laboratory for further information. Reference Range: NON REACTIVE Biotin interference may cause falsely decreased results. Patients taking a Biotin dose of up to 5 mg/day should refrain from taking Biotin for 24 hours before sample collection. Providers may contact their local laboratory for further information. LIPID PANEL (CORONARY RISK 2 )on 08-30-2022 Cholesterol [Mass/Vol] 161 mg/dL Normal 0 - 199 [facility] Comment on above: Result Comment: . AGE DESIRABLE BORDERLINE HIGH HIGH 0-19 Y 0 - 169 170 - 199 >/= 200 20-24 Y 0 - 189 190 - 224 >/= 225 >24 Y 0 - 199 200 - 239 >/= 240 All ranges are based on fasting samples. Specific therapeutic targets will vary based on patient-specific cardiac risk. . Pediatric guidelines reference:Pediatrics 2011, 128(S5). Adult guidelines reference: NCEP ATPIII Guidelines, BRANNON 2001, 258:2486-97 . Venipuncture immediately after or during the administration of Metamizole may lead to falsely low results. Testing should be performed immediately prior to Metamizole dosing. Performed By: #### V TB12 #### [facility] [address] [place] [address] Cholesterol in HDL [Mass/Vol] 62.4 mg/dL Normal [facility] Comment on above: Result Comment: . AGE VERY LOW LOW NORMAL HIGH 0-19 Y < 35 < 40 40-45 ---- 20-24 Y ---- < 40 >45 ---- >24 Y ---- < 40 40-60 >60 . Performed By: #### V TB12 #### [facility] [address] [place] [address] Cholesterol in LDL [Mass/Vol] 56 mg/dL Normal 0 - 99 [facility] Comment on above: Result Comment: . NEAR BORD AGE DESIRABLE OPTIMAL HIGH HIGH VERY HIGH 0-19 Y 0 - 109 --- 110-129 >/= 130 ---- 20-24 Y 0 - 119 --- 120-159 >/= 160 ---- >24 Y 0 - 99 100-129 130-159 160-189 >/=190 . Performed By: #### V TB12 #### [facility] [address] [place] [address] Cholesterol in VLDL [Mass/Vol] 43 mg/dL High 0 - 40 [facility] Comment on above: Performed By: #### V TB12 #### [facility] [address] [place] [address] Cholesterol.total/Ch olesterol in HDL [Mass ratio] 2.6 {ratio} Normal [facility] Comment on above: Result Comment: REF VALUES DESIRABLE < 3.4 HIGH RISK > 5.0 Performed By: #### V TB12 #### [facility] [address] [place] [address] NON-HDL CHOLESTEROL 99 mg/dL Normal [facility] Comment on above: Result Comment: AGE DESIRABLE BORDERLINE HIGH HIGH VERY HIGH 0-19 Y 0 - 119 120 - 144 >/= 145 >/= 160 20-24 Y 0 - 149 150 - 189 >/= 190 ---- >24 Y 30 MG/DL ABOVE LDL CHOLESTEROL GOAL . Performed By: #### V TB12 #### [facility] [address] [place] [address] Triglyceride [Mass/Vol] 213 mg/dL High 0 - 149 [facility] Comment on above: Result Comment: . AGE DESIRABLE BORDERLINE HIGH HIGH VERY HIGH 0 D-90 D 19 - 174 ---- ---- ---- 91 D- 9 Y 0 - 74 75 - 99 >/= 100 ---- 10-19 Y 0 - 89 90 - 129 >/= 130 ---- 20-24 Y 0 - 114 115 - 149 >/= 150 ---- >24 Y 0 - 149 150 - 199 200- 499 >/= 500 . Venipuncture immediately after or during the administration of Metamizole may lead to falsely low results. Testing should be performed immediately prior to Metamizole dosing. Performed By: #### V TB12 #### [facility] [address] [place] [address] Laboratory - Chemistry and C hemistry - challengeon 08-30-2022 Anion gap [Moles/Vol] 11 mmol/L 10 - 20 [facility] Work Phone: Calcium [Mass/Vol] 7.7 mg/dL below low threshold 8.6 - 10.3 [facility] Work Phone: Chloride [Moles/Vol] 80 mmol/L below low threshold 98 - 107 [facility] Work Phone: CO2 [Moles/Vol] 31 mmol/L 21 - 32 [facility] Work Phone: Creatinine [Mass/Vol] 0.47 mg/dL below low threshold See Below [facility] Work Phone: Comment on above: Reference Range: 0.5 0 - 1.30 Glucose [Mass/Vol] 109 mg/dL above high threshold 74 - 99 [facility] Work Phone: Potassium [Moles/Vol] 3.2 mmol/L below low threshold 3.5 - 5.3 [facility] Work Phone: Sodium [Moles/Vol] 119 mmol/L Critically low 136 - 145 [facility] Work Phone: Comment on above: SOD CALLED RB TO JJ MOHAN, 08/30/2022 08:10 TSH Qn 8.58 m[IU]/L above high threshold See Below [facility] Work Phone: Comment on above: Reference Range: 0.4 4 - 3.98 TSH testing is performed using different testing methodology at [facility] than at other [facility]. Direct result comparisons should only be made within the same method. Urea nitrogen [Mass/Vol] 9 mg/dL 6 - 23 [facility] Work Phone: Laboratory - Hematology and Cell countson 08-30-2022 Erythrocyte distribution width (RBC) [Ratio] 13.9 % See Below [facility] Work Phone: Comment on above: Reference Range: 11. 5 - 14.5 Hematocrit (Bld) [Volume fraction] 28.4 % below low threshold See Below [facility] Work Phone: Comment on above: Reference Range: 41. 0 - 52.0 Hemoglobin (Bld) [Mass/Vol] 10.2 g/dL below low threshold See Below [facility] Work Phone: Comment on above: Reference Range: 13. 5 - 17.5 MCHC (RBC) [Mass/Vol] 35.9 g/dL See Below [facility] Work Phone: Comment on above: Reference Range: 32. 0 - 36.0 MCV (RBC) [Entitic vol] 97 fL 80 - 100 [facility] Work Phone: Platelets (Bld) [#/Vol] 118 10*3/uL below low threshold 150 - 450 [facility] Work Phone: Comment on above: Platelet count may b e higher than reported due to presence of PlateletClumps. RBC (Bld) [#/Vol] 2.93 {x10E12/L} below low threshold See Below [facility] Work Phone: Comment on above: Reference Range: 4.5 0 - 5.90 WBC (Bld) [#/Vol] 7.0 10*3/uL 4.4 - 11.3 [facility] Work Phone: Lipid Panelon 08-30-2022 Cholesterol [Mass/Vol] 161 mg/dL 0 - 199 [facility] Work Phone: Comment on above: . AGE DESIRABLE BORD JAI HIGH HIGH 0-19 Y 0 - 169 170 - 199 >/= 200 20-24 Y 0 - 189 190 - 224 >/= 225 >24 Y 0 - 199 200 - 239 >/= 240 All ranges are based on fasting samples. Specific therapeutic targets will vary based on patient-specific cardiac risk.. Pediatric guidelines reference:Pediatrics 2011, 128(S5). Adult guidelines reference: NCEP ATPIII Guidelines, BRANNON 2001, 258:2486-97. Venipuncture immediately after or during the administration of Metamizole may lead to falsely low results. Testing should be performed immediately prior to Metamizole dosing. Cholesterol in HDL [Mass/Vol] 62.4 mg/dL [employer] Work Phone: Comment on above: . AGE VERY LOW LOW N ORMAL HIGH 0-19 Y < 35 < 40 40-45 ---- 20- 24 Y ---- < 40 >45 ---- >24 Y ---- < 40 40-60 >60. Cholesterol in LDL [Mass/Vol] 56 mg/dL 0 - 99 [employer] Work Phone: Comment on above: . NEAR BORD AGE LORENA RABLE OPTIMAL HIGH HIGH VERY HIGH 0-19 Y 0 - 109 --- 110-129 >/= 130 ---- 20-24 Y 0 - 119 --- 120-159 >/= 160 ---- >24 Y 0 - 99 100-129 130-159 160-189 >/=190. Cholesterol non HDL [Mass/Vol] 99 mg/dL [employer] Work Phone: Comment on above: AGE DESIRABLE BORDER LINE HIGH HIGH VERY HIGH 0-19 Y 0 - 119 120 - 144 >/= 145 >/= 160 20-24 Y 0 - 149 150 - 189 >/= 190 ---- >24 Y 30 MG/DL ABOVE LDL CHOLESTEROL GOAL. Cholesterol.total/Ch olesterol in HDL [Mass ratio] 2.6 {ratio} [facility] [facility] [employer] Work Phone: Comment on above: REF VALUESDESIRABLE < 3.4HIGH RISK > 5.0 Triglyceride [Mass/Vol] 213 mg/dL above high threshold 0 - 149 [facility] Work Phone: Comment on above: . AGE DESIRABLE BORD JAI HIGH HIGH VERY HIGH 0 D-90 D 19 - 174 ---- ---- ----91 D- 9 Y 0 - 74 75 - 99 >/= 100 ---- 10-19 Y 0 - 89 90 - 129 >/= 130 ---- 20-24 Y 0 - 114 115 - 149 >/= 150 ---- >24 Y 0 - 149 150 - 199 200- 499 >/= 500. Venipuncture immediately after or during the administration of Metamizole may lead to falsely low results. Testing should be performed immediately prior to Metamizole dosing. Lipid Panel 43 mg/dL above high threshold 0 - 40 [facility] Work Phone: MAGNESIUMon 08-30-2022 Magnesium [Mass/Vol] 1.70 mg/dL Normal 1.60 - 2.40 [facility] Comment on above: Performed By: #### V TB12 #### [facility] [address] [place] [address] Magnesium, Serumon 3 Magnesium [Mass/Vol] 1.70 mg/dL See Below [facility] Work Phone: Comment on above: Reference Range: 1.6 0 - 2.40 No Panel Informationon 08-30 >90 >90 [facility] Work Phone: Comment on above: CALCULATIONS OF ROSANA MATED GFR ARE PERFORMED USING THE 2020 CKD-EPI STUDY REFIT EQUATION WITHOUT THE RACE VARIABLE FOR THE IDMS-TRACEABLE CREATININE METHODS.https://jasn.asnjournals.org/content/early/ASN .7049546231 OSMOLALITY, SERUMon 08-31-19 23 OSMOLALITY, SERUM 252 mOsm/kg H2O Low 280 - 300 [facility] Comment on above: Performed By: #### R ENAL #### [facility] [address] [place] [address] OSMOLALITY,URINEon 3 OSMOLALITY,URINE 674 mOsm/kg Normal 200 - 1200 [facility] Comment on above: Performed By: #### R ENAL #### [facility] [address] [place] [address] OSMOLALITY,URINE SPOTon 08-08 OSMOLALITY,URINE SPOT Canceled Normal [facility] Comment on above: Order Comment: TEST OSMOLALITY,URINE SPOT WAS CANCELLED, 08/30/2022 05:35 DUPLICATE ORDERsee [id number]. Performed By: #### G ZOHREH #### [facility] [address] [place] [address] Osmolality, Serumon 08-31-19 23 Osmolality [Osmolality] 252 {mOsm/kg_H2O} below low threshold 280 - 300 [facility] Work Phone: PHOSPHORUSon 08-30-2022 Phosphate [Mass/Vol] 1.2 mg/dL Low 2.5 - 4.9 [facility] Comment on above: Result Comment: The performance characteristics of phosphorus testing in heparinized plasma have been validated by the individual laboratory site where testing is performed. Testing on heparinized plasma is not approved by the FDA; however, such approval is not necessary. Performed By: #### R ENAL #### [facility] [address] [place] [address] Phosphorus, Serumon 08-31-19 23 Phosphate [Mass/Vol] 1.2 mg/dL below low threshold 2.5 - 4.9 [facility] Work Phone: Comment on above: The performance fransisca acteristics of phosphorus testing in heparinized plasma have been validated by the individual laboratory site where testing is performed. Testing on heparinized plasma is not approved by the FDA; however, such approval is not necessary. Radiologyon 08-30-2022 XR Knee 1 or 2 Views Normal [facility] Work Phone: Rehab Qadj-eu-jthkzzdgzjy Rehab Soix-fl-kofuibdbv Rehab: Info: Disciplineoccupational therapist Mode of Treatmentco-treatment Time IN13:57 Time OUT14:15 Total Treatment [id number] Total Minutes Commentco-treatment with PT to maximize pt safety with mobility and optimize pt performance during session. Therapists facilitating sitting/standing balance and overall activity tolerance/endurance; PT with focus for mobility, OT with focus for ADLs. Patient in ... at end of sessionbed, 2 railings up; alarm on Communicated with ... at end of sessionbedside nurse; Spoke to RN about patients participation in therapy and their current level of function for ADLs/functional transfers. Confirmed with RN where the patient was positioned at end of session with needs placed within reach. Messaged TCC about therapy recommendations for discharge. Patient Effortfair Symptoms Noted During/After Treatmentfatigue Treatment Considerations/CommentsPat ient chart review by therapist. Per handoff with nursing prior to therapy visit, patients pain and vitals are stable. Additional concern for this patient related to therapy session: none. Patient Response to Treatmentpt supine in bed upon arrival, goal of session was to have patient seated EOB and attempt standing however pt with uncontrollable bowels on this date and was unable to tolerate sitting EOB due to this. Line and Tubestelemetry Vision/Cognition: Affect/Mental Status (Cognitive)confused; flat/blunted affect Mobility/Tone: Bed Mobility Assessment/Interventionsro lling left; rolling right; scooting/bridging Roll Left Gilliam (Bed Mobility)2 person assist; dependent (less than 25% patient effort) Roll Right Gilliam (Bed Mobility)2 person assist Scoot/Bridge Gilliam (Bed Mobility)dependent (less than 25% patient effort); 2 person assist Comment, Bed MobilityTotal A x2 for rolling left/right and for positioning trunk closer to HOB with use of draw sheet. VCs for positioning and UE placement to assist with bed mobility. ADL: BADL Assessment/Interventionlow er body dressing; toileting Gilliam Level (Lower Body Dressing)dependent (less than 25% patient effort) Comment (Lower Body Dressing)Total A for donning yoandy socks due to fatigue and decreased mobility. Gilliam Level (Toileting)2 person assist; dependent (less than 25% patient effort) Comment (Toileting)pt with bowel incontinence upon arrival, therapists assisting with toileting however pt unable to stop voiding and required chux to be replaced x2 during session. pt requiring Total A x2 for side rolling and for posterior hygiene/changing chux. Impairments, BADL Safety/Performancebalance; endurance/activity tolerance; trunk/postural control; strength Sensory: Pre-Treatment Pain Rating4/10 Post-Treatment Pain Rating4/10 Pain LocationR knee Health: Observed Emotional Stateflat Plan of Care Reviewed Withpatient Outcomes Tools: Putting on and taking off regular lower body clothingtotal Bathing (including washing, rinsing, drying)total Toileting, which includes using toilet, bedpan or urinaltotal Putting on and taking off regular upper body clothingtotal Taking care of personal grooming such as brushing teetha little Eating Mealsa little AM-PAC (OT) Total Score10 Short Term Goals: Bed Mobility: Date [id number] Bed Mobility: Gilliam Level Goalmaximum assist (25% patients effort) Bed Mobility: Physical Assist Level Goal1-person assist Bed Mobility: Time Frame for Goal2 wks Transfer: Established Transfer: Transfer Type Goaltoilet Transfer: Gilliam Level Goalmaximum assist (25% patients effort) Transfer: Physical Assist Level Goal1-person assist Transfer: Time Frame for Goal2 wks Balance: Established Balance: Goal DetailsPt will tolerate sitting EOB >15 min at SBA during functional tasks and ADLs without LOB and while maintaining trunk and head in upright, midline position. Balance: Time Frame for Goal2 wks Standing Tolerance: Established Standing Tolerance: Goal DetailsPt will increase supported standing tolerance to >5 min with MAX A x1 using LRAD during functional mobility/ADLs in order to improve activity tolerance and balance for self-care tasks. Standing Tolerance: Time Frame for Goal2 wks Grooming: Established Grooming: Gilliam Level Goalmodified independent Grooming: Physical Assist Level Goal1-person assist Grooming: Time Frame for Goal2 wks Upper Body Dressing: Established Upper Body Dressing: Gilliam Level Goalmoderate assist (50% patients effort) Upper Body Dressing: Physical Assist Level Goal1-person assist Upper Body Dressing: Time Frame for Goal2 wks Lower Body Dressing: Established Lower Body Dressing: Gilliam Level Goalmaximum assist (25% patients effort) Lower Body Dressing: Physical Assist Level Goal1-person (more content not included)... Normal [facility] Rehab Note-physical therapy nurse - Co treat with AMBER Regalado 08-30-2022 Rehab Note-physical therapy nurse - Co treat with AMBER Bertrand Rehab: Info: Disciplinephysical physical therapy attendant; Co treat with OT Jorge Armstrong to maximize pt participation. Participated in performance of tx and documentation under the direct supervision of CI, student Prudencio WINN Mode of Treatmentco-treatment; physical therapy Time IN13:55 Time OUT14:15 Total Treatment [id number] Patient in ... at end of sessionbed, 3 railings up; alarm on Communicated with ... at end of sessionbedside nurse; discussed pt's progress and current mobility as described in mobility section Patient Effortpoor Treatment Considerations/Commentsure thral indwelling catheter, IV, tele Patient Response to TreatmentRN Ok'd seeing pt with no stated issues in past 24 hours that would be contraindicated prior to pt participating in therapy. Patient had poor sanjana to tx this date, agreeable to participate in therapy this date. In bed upon entry. pt having uncontrollable bowel movements during tx. Patient/Family/Caregiver Comments/Observationsvisit or in room at start of tx Mobility/Tone: Bed Mobility Assessment/Interventionsbe d mobility activities; rolling right; rolling left; scooting/bridging Gilliam (Bed Mobility)dependent (less than 25% patient effort); 2 person assist; set up Roll Left Gilliam (Bed Mobility)dependent (less than 25% patient effort); 2 person assist; set up Roll Right Gilliam (Bed Mobility)dependent (less than 25% patient effort); 2 person assist Scoot/Bridge Gilliam (Bed Mobility)dependent (less than 25% patient effort); 2 person assist; set up Assistive Device (Bed Mobility)draw sheet Comment, Bed MobilityPt able to complete all bed mobility requiring dependent assist. Impairments Impacting Function (Mobility)endurance/activi ty tolerance; strength Sensory: Pre-Treatment Pain Rating4/10 Post-Treatment Pain Rating4/10 Pain LocationRight:; knee Comment, Pre/Post Treatment Painnursing notified. Outcomes Tools: Turning from your back to your side while in a flat bed without using bedrails total Moving from lying on your back to sitting on the side of a flat bed without using bedrailstotal Moving to and from bed to chair (including a wheelchair)total Standing up from a chair using your arms (e.g. wheelchair or bedside chair) total To walk in hospital roomtotal Climbing 3-5 steps with railingtotal AM-PAC (PT) Total Score6 Short Term Goals: Bed Mobility: Date [id number] Bed Mobility: Gilliam Level Goalminimum assist (75% patients effort) Bed Mobility: Time Frame for Goal2 wks Transfer: Established [id number] Transfer: Transfer Type Sknqigr-gs-dkjqa/chair-to- bed; wsw-rn-ecivb/bqmjv-cx-vhi Transfer: Gilliam Level Goalminimum assist (75% patients effort) Transfer: Assistive Device Goalrolling walker Transfer: Time Frame for Goal2 wks Gait: Established [id number] Gait: Gilliam Level Goalmodified independent Gait: Assistive Device Goalrolling walker Gait: Distance Goalx 20ft Gait: Time Frame for Goal2 wks DC Recommendations: Discharge Recommendation (PT Eval)Continue with current POC and recommend HIGH intensity skilled physical therapy intervention after discharge to address their limitations and ensure safety as per PT EVAL Electronic Signatures: Prudencio Franco (SPTA) (Signed 30-Aug-2022 15:22) Authored: Info, Mobility/Tone, Sensory, Outcomes Tools, Short Term Goals, DC Recommendations Davis Goldberg (SLUBBER HAND) (Signed 30-Aug-2022 16:04) Authored: Info, Mobility/Tone, Sensory, Outcomes Tools, Short Term Goals, DC Recommendations Linh Taveras (PT) (Signed 30-Aug-2022 16:37) Co-Signer: Info, Mobility/Tone, Sensory, Outcomes Tools, Short Term Goals, DC Recommendations Last Updated: 30-Aug-2022 16:37 by Linh Taveras (PT) Normal [facility] Swallow Evaluation v2-Bedsid e Clinical Swallow, SLPon 08-30-2022 Swallow Evaluation v2-Bedside Clinical Swallow, [employer] Rehab: Info: Time IN10:40 Time OUT10:57 Total Treatment [id number] Patient in ... at end of sessionbed, 2 railings up Communicated with ... at end of sessionbedside nurse; physician; Neva, GI, Brother Evaluation TypeBedside Clinical Swallow, [employer] Patient Effortadequate Symptoms Noted During/After Treatmentweakness -fatigue; fatigue Patient Profile Reviewedyes Onset of Illness/Injury or Date of [id number] Reason for Referralswallowing consult Referring PhysicianSalomone Patient/Family/Caregiver Comments/ObservationsBroth er in room with pt not tolerating solids x5 days. General Observations of PatientAlert, 0x3 , very weak and c/o a globus sensation in the mid esophogeal region. Per the pt - poor swallowing with solids x 2 months Pertinent History of Current Functional [id number] y/o admit to [facility] from home with c/o PO solids sticking in the mid esophageal region. GI consulted with EGD cancelled this date 2/2 the pt's electrolytes are off . pmhx; hypertension, hyperlipidemia, BPH, ETOH use disorder , BPH, anemia, anxiety, arthritis hypothyroidism and gout . Pt with anemia with a hematocrit of 32 and normal renal function. Pt with mildly abnormal liver function test. 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 CT of Chest completed 08/28/22 shows RUL nodular densities , symmetric ground glass arcade like densities posterior in the lower lobes. pna versus atelectatics. Pulmonary consult ordered. Diet Prior to Admission TextureNo restrictions Diet Prior to Admission ConsistencyThin 0 (Regular thin) Hearing Precautions/LimitationsWFL Precautions/Limitationsinf ection precautions; fall precautions; swallowing precautions Limitations/Impairmentssaf ety/cognitive; endurance; swallowing Developmental Statusindependent, age appropriate Impression: [employer] Swallowing Diagnosisoral dysfunction; Pt edentulous and weak, pharyngeal Assessment (Swallow Eval)Clinical bedside swallowing exam. OME exam completed with no oral focal weakness noted but pt without dentition and slow min reduced oral swallowing skills . Lingual /labial ROM adequate but min reduced lingual strength in the setting of FTT and general weakness from not being able to eat. Pt on a Full liquid diet with pt able to consume water straw sips and cup sips, tsp sips without overt s/s of aspiration. Poor ability to swallow sequential swallows demonstrated 2/2 the pt's overall weak state r/t his illness. Pt consumed tsp boluses of Puree x8 with c/o PO sticking in the mid esophageal region. Swallow onset palpated with laryngeal rise palpated as well. Appears functional . Thin liquid washes given x5 with good PO tolerance of the thin liquid consistency. Slow transit reported by the pt in the mid esophageal region. Pt c/o regurgitation at home of PO at times. EGD plan d/t a thick esophagus found on imaging. Pt deemed safe for the Full liquid diet and [employer] to follow with ongoing reassessments pending EGD results. Rehab Potential/Prognosis (Swallow Eval)good, to achieve stated therapy goals Speech Therapy RecommendationsContinue Full Liquid diet Crushed meds [employer] to follow for a re-evaluation post EGD results -recs if indicated. Criteria for Skilled Therapeutic Interventions Met (Swallow Eval)yes; treatment indicated [employer] Diet RecommendationsFull liquid diet [employer] Liquid Consistency RecommendationsThin 0 (Regular thin) Recommended Feeding/Eating Techniques (Swallow Eval)crush meds& alternate between small bites and sips of food/liquid& small sips/bites& slow rate Endurance Coordination Detailsmall bites Monitor for Signs of Aspiration (Swallow Eval)ongoing/increased oxygen supplementation; physiological instability; color change; fever; upper respiratory infection; pneumonia; cough; gurgly voice; throat clearing Oral Assess: Oral Musculature (Oral Mechanism)generally intact Dentition (Oral Mechanism)edentulous, does not have dentures Secretion Management (Oral Mechanism)WFL Mucosal Quality (Oral Mechanism)good Oral Labial Strength (Oral Mechanism)WFL Oral Labial Mobility (Oral Mechanism)WFL Lingual Strength (Oral Mechanism)impaired coordination Lingual Mobility (Oral Mechanism)impaired coordination Buccal Strength (Oral Mechanism)intact Tone (Oral Mechanism)intact Buccal Mobility (Oral Mechanism)intact Oral Musculature General AssessmentWFL Current DietFull liquids per GI Short Term Goals: Dysphagia/Swallow: Established Dysphagia/Swallow: Goal Details1. Pt will swallow the GI appropriate diet without concern for aspiration. 2. Ongoing swallowing re-evaluations post the GI objective study- EGD results and recs if clinically appropriate. 3. Pt/family education 4. Determine if a MBSS is needed. Dysphag (more content not included)... Normal [facility] T4 - Free Thyroxine, Serumon 08-30-2022 Free T4 [Mass/Vol] ng/dL below low threshold See Below [facility] Work Phone: Comment on above: Reference Range: 0.6 1 - 1.12 Thyroxine Free testing is performed using different testing methodology at [facility] than at other [facility]. Direct result comparisons should only be made within the same method.. Biotin can cause falsely elevated free T4 results. Patients taking a Biotin dose of up to 10 mg/day should refrain from taking Biotin for 24 hours before sample collection. Patient taking a Biotin dose of >10 mg/day should consult with their physician or the laboratory before the blood draw. THYROXINE,FREEon 08-30-2022 THYROXINE,FREE <0.25 Low 0.61 - 1.12 [facility] Comment on above: Result Comment: Thyr oxine Free testing is performed using different testing methodology at [facility] than at other [facility]. Direct result comparisons should only be made within the same method. . Biotin can cause falsely elevated free T4 results. Patients taking a Biotin dose of up to 10 mg/day should refrain from taking Biotin for 24 hours before sample collection. Patient taking a Biotin dose of >10 mg/day should consult with their physician or the laboratory before the blood draw. Performed By: #### V TB12 #### [facility] [address] [place] [address] TSH WITH REFLEX TO FREE T4 I F ABNORMALon 08-30-2022 TSH Qn 8.58 m[IU]/L High 0.44 - 3.98 [facility] Comment on above: Result Comment: TSH testing is performed using different testing methodology at [facility] than at other [facility]. Direct result comparisons should only be made within the same method. Performed By: #### V TB12 #### [facility] [address] [place] [address] ALCOHOLon 08-29-2022 Ethanol [Mass/Vol] mg/dL Normal [facility] Comment on above: Result Comment: FOR MEDICAL USE ONLY. . REF VALUES <10 Performed By: #### M G #### [facility] [address] [place] [address] AMMONIAon 08-29-2022 Ammonia (P) [Moles/Vol] 44 umol/L Normal [facility] Comment on above: Result Comment: . REFERENCE VALUES DAY 1 to DAY 7 <110 DAY 8 to DAY 14 < 90 DAY 15 to ADULT 16-53 Performed By: #### A ####[facility] [id number] [place] [address] Admission Risk Screen - Adul ton 08-29-2022 Admission Risk Screen - Adult Allergies: Allergies: No Known Allergies: Patient Verification: New W ID Band Applied in my Departmentyes Patient Identity Verified Bypatient ID Band FULL Name, include Middle, spelling matches patient's ID used for verificationyes ID Band Matches Patient ID used for Verficationyes ID Band MRN Matches EMR MRNyes Visitor Restriction: Coronavirus Visitor Restriction: Reasonable restrictions to in-person visitors will be observed due to current coronavirus pandemic. Travel History: COVID-19 Screening Completedno exposure or symptoms(1) Travel or Exposure Past 30 DaysNO travel to International locations in the past 30 days Ebola AlertFor Ebola-like Symptoms: Isolate Patient and Notify Provider/Wash Oil Cooler Operator For Contact: Notify Provider/Wash Oil Cooler Operator Advance Directive: Advance Directive/DNRyes Advance Directive typeDurable Power of Site Manager for Healthcare Durable Power of Site Manager AvailabilityDPOA not available now Durable Power of Site Manager [id number] Durable Power of Site Manager contact (name and number)Corwin [phone] Ayala Fall Screen: History of falling (immediate or previous)yes (25) Secondary Diagnosisyes (15) Intravenous Therapy/ Heparin/Saline Lockyes (20) Gait/Transferringweak (10) Ambulatory Aidscrutches/walker/cane (15) Mental Statusoriented to own ability (0) Score: Low risk (<25). Moderate risk (25-44). High risk (>44).85 Ayala InterventionsHIGH INTERVENTIONS *Low and Moderate Interventions Plus: * supervised toileting at all times Family Violence Screen: Are you or have you been threatened or abused physically, emotionally, or sexually by anyoneno Do you feel UNSAFE going back to the place where you are livingno Clinical assessment: Are there any apparent signs of injuries/behaviors that could be related to abuse/neglectno Social Service Consult for abuse/neglect needed this visitno Functional Screen: Functional Screen: In the recent/past 2-4 weeks, patient or family have noticeda significant change in ability to chew or swallow AM-PAC- Basic Mobility/Daily Activity: Patient baseline bedboundno Turning from your back to your side while in a flat bed without using bedrailsa little Moving from lying on your back to sitting on the side of a flat bed without using bedrailsa lot Moving to and from bed to chair (including a wheelchair)a lot Standing up from a chair using your arms (e.g. wheelchair or bedside chair)a lot To walk in hospital rooma lot Climbing 3-5 steps with railingtotal Basic Mobility - Total Score12 Putting on and taking off regular lower body clothinga little Bathing (including washing, rinsing, drying)a lot Putting on and taking off regular upper body clothinga little Toileting, which includes using toilet, bedpan or urinala little Taking care of personal grooming such as brushing teetha little Eating Mealsa little Daily Activity - Total Score17 Learning Assessment (Patient): Patient is Able to be Assessed for Learningyes Factors Influencing Readiness to Learninterest in learning Factors that Impact Ability to Learnnone Devices/Methods Used to Communicateglasses Learning Preferencesverbal instruction Cultural Considerationscultural considerations pentecostal Developmental Considerationsnone Sikh Considerationsreligious considerations pentecostal Learning Assessment (Other Learner): Other learner availableno Depression Screen: During the past month, have you often been bothered by feeling down, depressed or hopelessno During the past month, have you often had little interest or pleasure in doing thingsno Have you had any thoughts of harming anyone elseno (1) [place] Suicide: Risk Screen Not Applicable/Able to Answerable to be screened In the Past Month: Have you wished you were or could go to sleep and not wake upno(1) In the Past Month: Have you had any actual thoughts of killing yourself no(1) Lifetime: Have you ever done, started to do, or prepared to do anything to end your lifeno [place] Suicide Risknegative Adult Nutrition Screen: Have you recently lost weight without tryingunsure Have you been eating poorly because of a decreased appetiteyes Malnutrition Screening Tool Score3 Malnutrition Screening Tool RiskMST = 2 or more At Risk. Eating poorly and/or recent weight loss Nutrition Consult needed this visityes Can Patient Participate in Room Serviceyes, with assistance Patient requires Paper Dishes/Plastic Utensilsno Pain Screen: Pain Scalenumerical 0-10 Pain Scale Educationteaching provided Current Pain Level3 = Mild Acceptable Pain Level3 = Mild Expression of Pain (nonverbal)restless, verbalization Chronic Painyes Chronic Lower Extremity pain locationright, knee Spiritual Screen: Are there any cultural, spiritual, mormon practices/values/needs that are important for us to knowyes cath (more content not included)... Normal [facility] Ammonia, Plasmaon 08-29-2022 Ammonia (P) [Moles/Vol] 44 umol/L [facility] Work Phone: Comment on above: .REFERENCE VALUESDAY 1 to DAY 7 <110DAY 8 to DAY 14 < 90DAY 15 to ADULT 16-53 BILIRUBIN,DIRECTon 3 Bilirubin.indirect [Mass/Vol] 2.3 mg/dL High 0.0 - 0.3 [facility] Comment on above: Performed By: #### D BILI ####[facility] [place] [id number] Bilirubin, Serum Direct - Co njugatedon 08-29-2022 Bilirubin.direct [Mass/Vol] 2.3 mg/dL above high threshold 0.0 - 0.3 [facility] Work Phone: COMPREHENSIVE PANELon 2022 Albumin [Mass/Vol] 3.5 g/dL Normal 3.4 - 5.0 [facility] Comment on above: Performed By: #### C MP ####[facility] [place] [address] ALP [Catalytic activity/Vol] 158 U/L High 33 - 136 [facility] Comment on above: Performed By: #### C MP ####[facility] [place] [address] ALT [Catalytic activity/Vol] 45 U/L Normal 10 - 52 [facility] Comment on above: Result Comment: Raysa ents treated with Sulfasalazine may generate falsely decreased results for ALT. Performed By: #### C MP ####[facility] [place] [address] Anion gap [Moles/Vol] 15 mmol/L Normal 10 - 20 [facility] Comment on above: Performed By: #### C MP ####[facility] [id number] [place] [address] AST [Catalytic activity/Vol] 136 U/L High 9 - 39 [facility] Comment on above: Performed By: #### C MP ####[facility] [id number] [place] [address] Bilirubin [Mass/Vol] 4.4 mg/dL High 0.0 - 1.2 [facility] [place] [facility] Comment on above: Performed By: #### C MP ####[facility] [place] [address] Calcium [Mass/Vol] 8.0 mg/dL Low 8.6 - 10.3 [facility] Comment on above: Performed By: #### C MP ####[facility] [place] [address] Chloride [Moles/Vol] 82 mmol/L Low 98 - 107 [facility] Comment on above: Performed By: #### C MP ####[facility] [id number] [place] [address] Creatinine [Mass/Vol] 0.43 mg/dL Low 0.50 - 1.30 [facility] Comment on above: Performed By: #### C MP ####[facility] [id number] [place] [address] eGFR MALE >90 Normal >90 [facility] Comment on above: Result Comment: CALC ULATIONS OF ESTIMATED GFR ARE PERFORMED USING THE 2020 CKD-EPI STUDY REFIT EQUATION WITHOUT THE RACE VARIABLE FOR THE IDMS-TRACEABLE CREATININE METHODS. https://jasn.asnjournals.org/content/early/ASN.3388782 988 Performed By: #### C MP ####[facility] [id number] [place] [address] Glucose [Mass/Vol] 115 mg/dL High 74 - 99 [facility] Comment on above: Performed By: #### C MP ####[facility] [id number] [place] [address] HCO3 (Bld) [Moles/Vol] 29 mmol/L Normal 21 - 32 [facility] Comment on above: Performed By: #### C MP ####[facility] [id number] [place] [address] Potassium [Moles/Vol] 3.2 mmol/L Low 3.5 - 5.3 [facility] Comment on above: Performed By: #### C MP ####[facility] [id number] [place] [address] Protein [Mass/Vol] 6.0 g/dL Low 6.4 - 8.2 [facility] Comment on above: Performed By: #### C MP ####[facility] [id number] [place] [address] Sodium [Moles/Vol] 123 mmol/L Low 136 - 145 [facility] Comment on above: Performed By: #### C MP ####[facility] [id number] [place] [address] Urea nitrogen [Mass/Vol] 10 mg/dL Normal 6 - 23 [facility] Comment on above: Performed By: #### C MP ####[facility] [id number] [place] [address] CREATINE KINASEon 08-29-2022 CK [Catalytic activity/Vol] 376 U/L High 0 - 325 [facility] Comment on above: Performed By: #### R ENAL #### [facility] [address] [place] [address] Consult-Gastroenterologyon 0 08-29-2022 Consult-Gastroentero logy Service: Service: Gastroenterology Consult: Consult requested by (Attending Name): Polo Sanchez Reason: Oropharyngeal dysphagia History of Present Illness: HPI: CHRISTOS LYONS is a 77 year old Male The patient is seen and examined by myself and I have reviewed the inpatient and ambulatory record. The patient is a 77-year-old with a history of hypertension, hyperlipidemia, BPH, anxiety, hypothyroidism and gout who is admitted with weakness and solid food dysphagia. He is noted to have a anemia with a hematocrit of 32 and normal renal function. He has mildly abnormal liver function test. 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 The history is further by his brother at the bedside. His medications are reviewed and he is not on a proton pump inhibitor. Past Medical/Surgical History: Medical History: Hyponatremia: Lung mass: Dysphagia: Review Family/Social History and ROS: Review Family/Social History and ROS: Family History: reviewed and not pertinent to presenting problem Family History: Son has diabetes mellitus type 2 and CHF Alcohol Use: daily Drug Use: denies History and Physical from Aug 29, 2022 Constitutional Patient is POSITIVE for Malaise and NEGATIVE for Fever, Chills, Anorexia, Weight Loss, Eyes Patient is NEGATIVE for Blurry Vision, Drainage, Diploplia, Redness, Vision Loss/ Change ENMT Patient is NEGATIVE for Nasal Discharge, Nasal Congestion, Ear Pain, Mouth Pain, Throat Pain Respiratory Patient is NEGATIVE for Dry Cough, Productive Cough, Hemoptysis, Wheezing, Shortness of Breath Cardiac Patient is NEGATIVE for Chest Pain, Dyspnea on Exertion, Orthopnea, Syncope Gastrointestinal Patient is NEGATIVE for Nausea, Vomiting, Diarrhea, Constipation, Abdominal Pain, COMMENTS: Dysphagia to solid food Genitourinary Patient is NEGATIVE for Discharge, Dysuria, Flank Pain, Frequency, Hematuria Musculoskeletal Patient is NEGATIVE for Decreased ROM, Pain, Swelling, Stiffness, Weakness Neurological Patient is NEGATIVE for Dizziness, Confusion, Headache, Seizures, Syncope Psychiatric Patient is NEGATIVE for Mood Changes, Anxiety, Hallucinations, Sleep Changes, Suicidal Ideas Skin Patient is NEGATIVE for Mass, Pain, Pruritus, Rash, Ulcer Endocrine Patient is NEGATIVE for Heat Intolerance, Cold Intolerance, Sweat, Polyuria, Thirst Hematologic/Lymph Patient is NEGATIVE for Anemia, Bruising, Easy Bleeding, Night Sweats, Petechiae Allergic/Immunologic Patient is NEGATIVE for Anaphylaxis, Itchy/ Teary Eyes, Itching, Sneezing, Swelling Breast Patient is NEGATIVE for Pain, Mass, Discharge, Nipple Itching, Gynecomastia All other systems reviewed and are negative Social History: Smoking Status: never smoker (1) Alcohol Use: daily(1) Drug Use: denies (1) Drug 2 Use: denies (1) Constitutional: POSITIVE: Anorexia, Malaise; NEGATIVE: Fever, Chills, Weight Loss Eyes: NEGATIVE: Blurry Vision, Drainage, Diploplia, Redness, Vision Loss/ Change ENMT: NEGATIVE: Nasal Discharge, Nasal Congestion, Ear Pain, Mouth Pain, Throat Pain Respiratory: NEGATIVE: Dry Cough, Productive Cough, Hemoptysis, Wheezing, Shortness of Breath Cardiac: NEGATIVE: Chest Pain, Dyspnea on Exertion, Orthopnea, Palpitations, Syncope Gastrointestinal: NEGATIVE: Nausea, Vomiting, Diarrhea, Constipation, Abdominal Pain Genitourinary: NEGATIVE: Discharge, Dysuria, Flank Pain, Frequency, Hematuria Musculoskeletal: NEGATIVE: Decreased ROM, Pain, Swelling, Stiffness, Weakness Neurological: NEGATIVE: Dizziness, Confusion, Headache, Seizures, Syncope Psychiatric: POSITIVE: Mood Changes, Anxiety; NEGATIVE: Hallucinations, Sleep Changes, Suicidal Ideas Skin: NEGATIVE: Mass, Pain, Pruritus, Rash, Ulcer Allergies: No Known Allergies: Objective: Objective Information: T PRBPMAPSpO2 [id number]/5695% Date/Time08/29 11: 11: 11: 11: 11:49 Range(36.2C - 37.1C ) (67 - 78 ) (15 - 18 ) (103 - 138 )/ (56 - 75 ) (95% - 97% ) Highest temp of 37.1 C was recorded at 08/29 6:15 Physical Exam by System: Constitutional: Well developed, awake/alert/oriented x3, no distress, alert and cooperative Eyes: PERRL, EOMI, clear sclera ENMT: mucous membranes moist, no apparent injury, no lesions seen Head/Neck: Neck supple, no apparent injury, thyroid without mass or tenderness, No JVD, trachea midline, no bruits Respiratory/Thorax: Patent airways, CTAB, normal breath sounds with good chest expansion, thorax symmetric Cardiovascular: Regular, rate and rhythm, no murmurs, 2+ equal pulses of the extremities, normal S 1and S 2 Gastrointestinal: Nondistended, soft, non-tender, no rebound tenderness or (more content not included)... Normal [facility] Consult-Nephrologyon 023 Consult-Nephrology Service: Service: Nephrology Consult: Consult requested by (Attending Name): Polo Sanchez Reason: Hyponatremia History of Present Illness: HPI: CHRISTOS LYONS is a 77 year old Male with a past medical history of hypertension, dyslipidemia, anemia, alcohol abuse disorder, BPH, anxiety, hypothyroidism, gout, morbid obesity, medical noncompliance as he has not followed with a provider for nearly 5 years and takes no medication. He presents due to significant weakness as he could not walk. He has been suffering dysphagia and tolerating only mostly liquids. CT imaging of the chest abdomen and pelvis was notable for a right pulmonary nodule concerning for malignancy, CHF, pulmonary hypertension, enlarged prostate, infectious/inflammatory colitis, gastritis, acute cystitis and fatty liver. He had a sodium of 123, elevated T. bili and AST. Ethanol level was undetectable. Nephrology is consulted for hyponatremia management. Review of systems obtained and negative unless stated in HPI Past medical history Hypertension Hyperlipidemia Anemia Alcohol use disorder BPH Anxiety Hypothyroidism Osteoarthritis Gouty arthritis Pseudogout of the wrist Past surgical history Denies Family history Son has diabetes mellitus type 2 and congestive heart failure Social history Daily vodka Never smoked No illicit drugs Review Family/Social History and ROS: Social History: Smoking Status: never smoker (1) Alcohol Use: daily(1) Drug Use: denies (1) Drug 2 Use: denies (1) Allergies: No Known Allergies: Objective: Objective Information: T PRBPMAPSpO2 [id number]/5695% Date/Time08/29 11: 11: 11: 11: 11:49 Range(36.2C - 37.1C ) (67 - 78 ) (15 - 18 ) (103 - 138 )/ (56 - 75 ) (95% - 97% ) Highest temp of 37.1 C was recorded at 08/29 6:15 Physical Exam by System: Constitutional: Well developed, awake/alert/oriented x3, no distress, alert and cooperative Eyes: PERRL, EOMI, clear sclera ENMT: mucous membranes moist Head/Neck: Neck supple, no JVD, trachea midline Respiratory/Thorax: Lungs are Clear to auscultation Cardiovascular: Regular, rate and rhythm, normal S 1and S 2 Gastrointestinal: Nondistended, soft, non-tender, no rebound tenderness or guarding Extremities: Anasarca Neurological: Awake and alert Cranial nerves II through XII grossly intact Breast: No masses, tenderness, no discharge or discoloration Lymphatic: No significant lymphadenopathy Psychological: Appropriate mood and behavior Skin: Dry scaly skin of the lower extremities bilaterally Medications: Medications: Continuous Medications ------ No continuous medications are active Scheduled Medications ------ 1. Allopurinol: 300 mg Oral Every 24 Hours 2. Emollient Topical Cream: 1 application(s) Topical 3 Times a Day 3. Enoxaparin SubCutaneous: 40 mg SubCutaneous Every 24 Hours 4. Folic Acid: 1 mg Oral Daily 5. Furosemide Injectable: 40 mg IntraVenous Push Once 6. Gabapentin: 300 mg Oral 2 Times a Day 7. Lidocaine 4% TransDermal: 1 patch TransDermal Every 24 Hours 8. Multivitamin with Minerals: 1 tablet(s) Oral Daily 9. Pantoprazole Injectable: 40 mg IntraVenous Push Every 24 Hours 10. PHENobarbital: 64.8 mg Oral 3 Times a Day 11. Thiamine Injectable: 100 mg IntraVenous Push Daily 12. Urea 40% Topical: 1 application(s) Topical 3 Times a Day PRN Medications ------ 1. LORazepam Injectable: 0.5 mg IntraVenous Push Every 2 Hours 2. LORazepam Injectable: 1 mg IntraVenous Push Every 2 Hours 3. LORazepam Injectable: 2 mg IntraVenous Push Every 2 Hours 4. Ondansetron Injectable: 4 mg IntraVenous Push Every 4 Hours 5. oxyCODONE Immediate Release: 5 mg Oral Every 4 Hours Conditional Medication Orders ------ 1. Perflutren Lipid Microsphere (Activated) 1.3 mL / NaCL 0.9% T.V. 10 mL Injectable: 0.5 mL IntraVenous Push Once Currently Suspended Medications ------ 1. Sodium Chloride 0.9% with Potassium CL 20 mEq Premix Fluid: 1000 mL IntraVenous Recent Lab Results: Results: I have reviewed these laboratory results: Comprehensive Metabolic Panel 29-Aug-2022 06:45:00 ResultValue Glucose, Serum 115 H NA 123 L K 3.2 L CL 82 L Bicarbonate, Serum 29 Anion Gap, Serum 15 BUN 10 CREAT 0.43 L GFR Male >90 Calcium, Serum 8.0 L ALB 3.5 ALKP 158 H T Pro 6.0 L T Bili 4.4 H Alanine Aminotransferase, Serum 45 Aspartate Transaminase, Serum 136 H Ammonia, Plasma 29-Aug-2022 06:45:00 ResultValue Ammonia, Plasma 44 Lactate, Level 29-Aug-2022 06:45:00 ResultValue Lactate, Level 1.5 Creatine Kinase, Level 29-Aug-2022 06:45:00 ResultValue Creatine Kinase, Level 376 H Bilirubin, Serum Direct - Conjugated 29-Aug-2022 06 (more content not included)... Normal [facility] Consult-Pulmonologyon 2022 Consult-Pulmonology Service: Service: Pulmonology Consult: Consult requested by (Attending Name): Polo Sanchez Reason: On [facility] bone density History of Present Illness: Admission Reason: Weakness HPI: CHRISTOS LYONS is a 77 year old Male with a h/o HTN, DLP, anxiety, alcohol use disorder, hypothyroidism, gouty arthritis, anemia, OA, pseudogout, BPH, who p/w dysphagia to solid foods and malaise x 5 days. Gradual onset, progressive. In the ED work up revealed hyponatremia, hyperbilirubinemia, and mildly elevated LA and BNP. Admitted to [facility] for further management. CT revealed a RUL nodule/mass for which pulmonary is consulted. The below history was obtained from the patient and his brother. Per patient he developed weakness 4 days ago, gradual onset, progressive, associated with R sided knee pain. Also progressive dysphagia to solids. In terms of respiratory symptoms, complains of a chronic cough for years that has been worse for the last few days. Productive of yellow/alvarenga sputum. Also infrequent hemoptysis. Denies wheezing. Coughing is associated with SOB. Denies SOB at rest or with activity. Overall has been confined to a recliner chair for the last few years. Denies orthopnea or PND. But +ve LE edema. Full ROS as below. PMH: HTN, DLP, anxiety, alcohol use disorder, hypothyroidism, gouty arthritis, anemia, OA, pseudogout, BPH PSH: denies any surgeries SH: never smoked cigarettes but smoked Marijuana, quit in 2021. Drinks daily. 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 FH: +ve for DM, CHF Review Family/Social History and ROS: Social History: Smoking Status: never smoker (1) Alcohol Use: daily(1) Drug Use: denies (1) Drug 2 Use: denies (1) Constitutional: POSITIVE: Anorexia, Malaise; NEGATIVE: Fever, Chills, Weight Loss Eyes: POSITIVE: Blurry Vision, Drainage; NEGATIVE: Diploplia, Redness, Vision Loss/ Change ENMT: POSITIVE: Nasal Discharge, Nasal Congestion; NEGATIVE: Ear Pain, Mouth Pain, Throat Pain Respiratory: POSITIVE: Dry Cough, Productive Cough, Hemoptysis, Shortness of Breath; NEGATIVE: Wheezing Cardiac: POSITIVE: Chest Pain, Dyspnea on Exertion; NEGATIVE: Orthopnea, Palpitations, Syncope Gastrointestinal: POSITIVE: Nausea, Diarrhea, Abdominal Pain; NEGATIVE: Vomiting, Constipation Genitourinary: NEGATIVE: Dysuria, Frequency, Hematuria Musculoskeletal: POSITIVE: Pain, Swelling, Stiffness, Weakness Neurological: NEGATIVE: Dizziness, Confusion, Headache, Seizures, Syncope Psychiatric: NEGATIVE: Mood Changes, Anxiety Skin: POSITIVE: Pruritus, Rash; NEGATIVE: Pain Allergies: No Known Allergies: Objective: Objective Information: T PRBPMAPSpO2 [id number]% Date/Time08/29 8: 8: 8: 8: 8:00 Range(36.2C - 37.1C ) (67 - 78 ) (15 - 18 ) (114 - 138 )/ (58 - 75 ) (95% - 97% ) Highest temp of 37.1 C was recorded at 08/29 6:15 Physical Exam by System: Constitutional: NAD, obese, pleasant. Eyes: PERRL, EOMI ENMT: dry MM, on RA Head/Neck: supple, cannot assess for JVD Respiratory/Thorax: clear lung granado anteriorly with fair air entry, no wheezing or crackles. Cardiovascular: S1, S2, RR, HR 60s, no M/R/G. Gastrointestinal: soft, mild RUQ tenderness, ND, but obese. Musculoskeletal: no C/C. Extremities: 3-4+ b/l LE edema. Neurological: follows commands, moves all extremities, but significant weakness. Lymphatic: no nuchal LAP. Psychological: A&Ox3, normal mood and affect. Skin: very dry with crusts in LEs Refresh Home Medications List: Select to Refresh Home Medication ListRefresh Home Medications Medications: Medications: CENTRAL NERVOUS SYSTEM AGENTS: 1. oxyCODONE Immediate Release: 5 mg Oral Every 4 Hours PRN 2. Ondansetron Injectable: 4 mg IntraVenous Push Every 4 Hours PRN 3. LORazepam Injectable: 0.5 mg IntraVenous Push Every 2 Hours PRN 4. LORazepam Injectable: 1 mg IntraVenous Push Every 2 Hours PRN 5. LORazepam Injectable: 2 mg IntraVenous Push Every 2 Hours PRN COAGULATION MODIFIERS: 1. Enoxaparin SubCutaneous: 40 mg SubCutaneous Every 24 Hours GASTROINTESTINAL AGENTS: 1. Pantoprazole Injectable: 40 mg IntraVenous Push Every 24 Hours METABOLIC AGENTS: 1. Allopurinol: 300 mg Oral Every 24 Hours NUTRITIONAL PRODUCTS: 1. Potassium Chloride Powder Packet: 20 mEq Oral Once 2. Multivitamin with Minerals: 1 tablet(s) Oral Daily 3. Folic Acid: 1 mg Oral Daily 4. Thiamine Injectable: 100 mg IntraVenous Push Daily TOPICAL AGENTS: 1. Emollient Topical Cream: 1 application(s) Topical 3 Times a Day 2. Urea 40% Topical: 1 application(s) Topical 3 Times a Day Currently Suspended Medications ------ 1. Sodium Chloride 0.9% with Potassium CL 20 mEq Premix Fluid: 1000 mL IntraVenous Recent Lab Results: Results: I have reviewed these laboratory results: Comprehen (more content not included)... Normal [facility] Creatine Kinase, Levelon CK [Catalytic activity/Vol] 376 U/L above high threshold 0 - 325 -[facility] Work Phone: Discharge Planning [id number] 0 08-29-2022 Discharge Planning Note2 Discharge Planning: Discharge Barriersmedical Planned Dispositionhome Discharge DestinationTBD Discharge Transportation [facility] from [facility] Burton of Choice Explainedyes preference Anticipated Discharge [id number] Discharge Planning 08/29/22 0800am Patient admitted for dysphagia, GI and Speech on to evaluate. Patient also complains of weakness at this time. Will continue to follow for possibel [facility] for DC planning. Lorrie Parekh RN, BSN, TCC 08/30/2022 1000 met with patient brother at bedside Corwin [phone] /POA he is requesting a DNR status, request re-directed to physician on duty. Discussed with patient brother need for discharge plan, brother stated he wanted to wait until further test, are performed and that he felt his brother was declining fast. Will follow for discharge planning needs Mirian JENKINS,RN,TCC 08/31/2022 11:24 AM I met with patient's brother.We discussed that patient is recommended for SNF. He asked me to send referrals to 1) [facility] 2) [facility] 3) [facility] 4) [facility]. I requested CNC to send. I will follow up with bed availability. Alysa Brewer [facility] 08/31/2022 1140 DSC: Built and sent SNF referral to [facility], [facility], [facility] and [facility], awaiting a response. Zeina Weller Discharge Drums Teacher 08/31/2022 4:23 PM Message left for brother to discuss discharge plans. Alysa Brewer [facility] 08/31/2022 4:40 PM I spoke with patient's brother. He said [facility] is [facility]. Alysa Brewer SENIOR SYSTEMS ANALYST 09/01/2022 900 DSC: Updates sent to [facility]. Zeina Weller Discharge Drums Teacher 09/02/2022 844 DSC: Updates sent to [facility]. Zeina Weller Discharge Drums Teacher 09/02/2022 planned GED today, continued with IV lasix, possible med ready 08/30 facility notified , responded they had auth today without asking to start pre-cert, After a hour later facility stated they could not take patient , I am so sorry we are having people test positive for covid, we are unable to take him today due to needing the room for covid. Earliest we can take him is possibly next week. I am so sorry for the late notice. Please let me know how you want to proceed. will follow for discharge planning Mirian JENKINS,RN,TCC 09/02/2022 note to facility Since auth was already started and received at your facility prematurely can you please make provisions 'to receive patient please keep us updated TY Mirian JENKINS,RN,TCC 09/02/2022 3:12 PM Patient's brother called me. I updated him on bed availability at SNF. He said that [facility] is ok if bed is not available at [facility]. Alysa Brewer [facility] 09/03/2022 15:13 PCN: Completed and submitted new auth for pt to go to [facility]. Pt has auth to admit. Relayed to team and sent the following message to the SNF via [employer]: Pt has auth to admit! AMY ID: [id number] 09/03-09/07 Updates due 09/07 Brenda is medical review specialist fax updates to: [phone] Thanks! Trang [phone] [place] 09/03/2022 met with patient at bedside encouraged him to participate in his therapy to get better, patient brother at bedside agreeable, Planned discharge to n 1-2 days Mirian JENKINS,RN,[facility] 09/03/2022 3:48 PM Brother notified that transport has been requested for a Tuesday discharge. Alysa Brewer [facility] 09/03/2022 1642 DSC: Transport confirmed for 12noon potato picker on 09/04, facility notified. Zeina Weller Discharge Drums Teacher 09/03/2022 1655 DSC: PASRR completed in [facility]. Zeina Weller Discharge Drums Teacher Assessment: Discharge Planning Assessment [id number] Discharge Planning Assessment Completed byLorrie Parekh RN, BSN, TCC Primary Contact Name and NumberCorwin [phone](1) Prior Level of FunctioningIndependent prior to admission Lives Withalone(1) Living Arrangementshouse(1) Stated Reason for Admissionweakness, unable to eat(1) [place] ([place]) PCPMattjacqueline Polo Resource/Environmental Concernsnone(1) Anticipated Transition Toinpatient rehabilitation facility(1) Services Anticipated at Transitionrehabilitation services(1) InsuranceUnited Mycare Anticipated Changes Related to Illnessnone Equipment Needed After Dischargenone Anticipated Discharge Facility/Level of Care Needs.Home Discharge Documentation: Discharge Modestretcher Code StatusCode Status order at time of discharge: DNAR Patient already has a completed DNR State Form [place] DNR State Form Status: DNR Comfort Care Arrest Discharge Order Writtenyes [place] DNR Form Sent with Patient and/or Familyno Electronic Signatures: Trang Raymundo (PCN) (Signed 03-Sep-2022 15:13) Authored: Discharge Planning Lorrie Parekh (RN) (Signed 29-Aug-2022 08:04) Author (more content not included)... Normal [facility] EMR ADDONon 08-29-2022 ADDON CONFIRMATION Canceled Normal [facility] Comment on above: Order Comment: TEST EMR ADDON WAS CANCELLED, 08/29/2022 12:53 need sst tube (yellow/red top). Performed By: #### E MRAD ####[facility] [id number] [place] [id number] ADDON CONFIRMATION REQUEST REC'D Normal [facility] Comment on above: Performed By: #### E MRAD ####[facility] [id number] [place] [address] ADDON CONFIRMATION REQUEST REC'D Normal [facility] Comment on above: Performed By: #### E MRAD ####[facility] [id number] [place] [address] ADDON CONFIRMATION REQUEST REC'D Normal [facility] Comment on above: Performed By: #### R ENAL #### [facility] [address] [place] [address] LACTATEon 08-29-2022 Lactate [Moles/Vol] 1.5 mmol/L Normal 0.4 - 2.[address] [facility] Comment on above: Result Comment: Lisa puncture immediately after or during the administration of Metamizole may lead to falsely low results. Testing should be performed immediately prior to Metamizole dosing. MILD ICTERUS DETECTED. The result may be falsely decreased due to icterus or other interferents. Clinical correlation is recommended. Repeat testing may be considered. Performed By: #### L ACT ####[facility] [place] [id number] Laboratory - Chemistry and C hemistry - challengeon 08-29-2022 Creatinine (U) [Mass/Vol] 178.0 mg/dL See Below [facility] Work Phone: Comment on above: Reference Range: 20. 0 - 370.0 Sodium (U) [Moles/Vol] 32 mmol/L See Below [facility] Work Phone: Comment on above: Reference Range: Not Established Sodium/Creatinine (U) [Ratio] 18 {mmol/g_Creat} See Below [facility] Work Phone: Comment on above: Reference Range: Not Established Albumin BCP dye [Mass/Vol] 3.5 g/dL 3.4 - 5.0 [facility] Work Phone: ALP [Catalytic activity/Vol] 158 U/L above high threshold 33 - 136 [facility] Work Phone: ALT With P-5'-P [Catalytic activity/Vol] 45 U/L 10 - 52 [facility] Work Phone: Comment on above: Patients treated wit h Sulfasalazine may generate falsely decreased results for ALT. Anion gap [Moles/Vol] 15 mmol/L 10 - 20 [facility] Work Phone: AST With P-5'-P [Catalytic activity/Vol] 136 U/L above high threshold 9 - 39 [facility] Work Phone: Bilirubin [Mass/Vol] 4.4 mg/dL above high threshold 0.0 - 1.2 [facility] Work Phone: Calcium [Mass/Vol] 8.0 mg/dL below low threshold 8.6 - 10.3 [facility] Work Phone: Chloride [Moles/Vol] 82 mmol/L below low threshold 98 - 107 [facility] Work Phone: CO2 [Moles/Vol] 29 mmol/L 21 - 32 -[facility] Work Phone: Creatinine [Mass/Vol] 0.43 mg/dL below low threshold See Below [facility] Work Phone: Comment on above: Reference Range: 0.5 0 - 1.30 Glucose [Mass/Vol] 115 mg/dL above high threshold 74 - 99 -[facility] Work Phone: Potassium [Moles/Vol] 3.2 mmol/L below low threshold 3.5 - 5.3 -[facility] Work Phone: Protein [Mass/Vol] 6.0 g/dL below low threshold 6.4 - 8.2 -[facility] Work Phone: Sodium [Moles/Vol] 123 mmol/L below low threshold 136 - 145 -[facility] Work Phone: Urea nitrogen [Mass/Vol] 10 mg/dL 6 - 23 [facility] Work Phone: Anion gap 4 (BldV) [Moles/Vol] 6 mmol/L below low threshold 10 - 25 [facility] Work Phone: Base excess Calc (BldV) [Moles/Vol] 9.3 mmol/L above high threshold -2.0 - 3.0 [facility] Work Phone: Calcium.ionized (BldV) [Moles/Vol] 0.98 mmol/L below low threshold See Below [facility] Work Phone: Comment on above: Reference Range: 1.1 0 - 1.33 Chloride (BldV) [Moles/Vol] 82 mmol/L below low threshold 98 - 107 [facility] Work Phone: CO2 (BldV) [Partial pressure] 46 mm[Hg] 41 - 51 [facility] Work Phone: Glucose [Mass/Vol] 133 mg/dL above high threshold 74 - 99 [facility] Work Phone: HCO3 (Bld) [Moles/Vol] 34.3 mmol/L above high threshold See Below [facility] Work Phone: Comment on above: Reference Range: 22. 0 - 26.0 Lactate (BldV) [Moles/Vol] 3.2 mmol/L above high threshold 0.4 - 2.0 [facility] Work Phone: Oxygen (BldV) [Partial pressure] 27 mm[Hg] below low threshold 35 - 45 [facility] Work Phone: Oxyhemoglobin (BldV) [Mass fraction] 42.2 % below low threshold See Below [facility] Work Phone: Comment on above: Reference Range: 45. 0 - 75.0 pH (BldV) 7.48 [pH] above high threshold See Below [facility] Work Phone: Comment on above: Reference Range: 7.3 3 - 7.43 Potassium (BldV) [Moles/Vol] 3.2 mmol/L below low threshold 3.5 - 5.3 [facility] Work Phone: Sodium (BldV) [Moles/Vol] 119 mmol/L Critically low 136 - 145 [facility] Work Phone: Comment on above: CRIT SOD CALLED RB T O DAVE RILEY., 08/29/2022 03:32 Creatinine (U) [Mass/Vol] 162.0 mg/dL See Below [facility] Work Phone: Comment on above: Reference Range: 20. 0 - 370.0 Sodium (U) [Moles/Vol] 16 mmol/L See Below [facility] Work Phone: Comment on above: Reference Range: Not Established Sodium/Creatinine (U) [Ratio] 10 {mmol/g_Creat} See Below [facility] Work Phone: Comment on above: Reference Range: Not Established Laboratory - Hematology and Cell countson 08-29-2022 Hematocrit Est (Bld) [Volume fraction] 45.0 % See Below [facility] Work Phone: Comment on above: Reference Range: 41. 0 - 52.0 Hemoglobin (Bld) [Mass/Vol] 15.1 g/dL See Below [facility] Work Phone: Comment on above: Reference Range: 13. 5 - 17.5 Lactate, Levelon 08-29-2022 Lactate [Moles/Vol] 1.5 mmol/L 0.4 - 2.0 [facility] Work Phone: Comment on above: Venipuncture immedia tely after or during the administration of Metamizole may lead to falsely low results. Testing should be performed immediately prior to Metamizole dosing.MILD ICTERUS DETECTED. The result may be falsely decreased due to icterusor other interferents. Clinical correlation is recommended. Repeat testingmay be considered. No Panel Informationon 08-29 >90 >90 [facility] Work Phone: Comment on above: CALCULATIONS OF ROSANA MATED GFR ARE PERFORMED USING THE 2020 CKD-EPI STUDY REFIT EQUATION WITHOUT THE RACE VARIABLE FOR THE IDMS-TRACEABLE CREATININE METHODS.https://jasn.asnjournals.org/content//ASN .4888519372 Inhaled oxygen concentration 21 % [facility] Work Phone: OT Evaluation [id number] ton 08-29-2022 OT Evaluation [id number] Rehab: Info: Mode of Treatmentco-treatment; occupational therapy Time IN11:11 Time OUT11:45 Total Treatment [id number] Total Minutes CommentUntimed eval with PT + 10 min tx Patient in ... at end of sessionbed, 2 railings up; alarm on Communicated with ... at end of sessionbedside nurse; Spoke to RN about patients participation in therapy and their current level of function for ADLs/functional transfers. Confirmed with RN where the patient was positioned at end of session with needs placed within reach. Messaged TCC about therapy recommendations for discharge. Patient Effortadequate Symptoms Noted During/After Treatmentfatigue; increased pain Patient Profile Reviewedyes Patient chart review by therapist. Per handoff with nursing prior to therapy visit, patients pain and vitals are stable. Additional concern for this patient related to therapy session: none. Onset of Illness/Injury or Date of [id number] Reason for Referralnew documented impairments affecting ADLs Referring PhysicianShapiro General Observations of Patientpt supine in bed upon arrival, family present for session. pt self-limiting and saying I can't move at all however agreeable with encouragement. Pt reporting had a recent fall with R knee pain/swelling. Pertinent History of Current Functional Yom[age]rw67 year old Male with a past medical history of hypertension, hyperlipidemia, anemia, alcohol use disorder, BPH, anxiety, hypothyroidism, gouty arthritis who presented to [facility] complaining of worsening dysphagia to solid foods and malaise. He is able to swallow liquids and has had difficulty swallowing solids in the past 5 days getting worse to the point where he does not feel like eating. He denies any nausea but does have generalized weakness. He is having difficulty ambulating due to leg weakness. work up revealed hyponatremia, hyperbilirubinemia, and mildly elevated LA and BNP. Admitted to [facility] for further management. CT revealed a RUL nodule/mass for which pulmonary is consulted. Hand Dominanceright Hearing Precautions/LimitationsWFL Precautions/Limitationsfal l precautions Ambulation Skills - Previous Level of Functionindependent Ind with FWW for short distances (10-15ft) Transfer Skills - Previous Level of Functionindependent ADL Skills - Previous Level of Functionindependent; Ind with simple ADLs, family/friends helped with IADLs. Hasn't drove since Covid began, spends most of his time in lift chair at home. Living Arrangementsapartment Lives Withalone Home AccessibilityLives in apartment alone however family/friends visit frequently. pt spends most of his time in his lift chair and sleeps on it. No stairs to negotiation within apartment. Owns FWW and lift chair. Line and TubesIV; telemetry; urethral catheter indwelling Vision/Cognition: Affect/Mental Status (Cognitive)confused Orientation Status (Cognition)oriented x 3 ROM: Upper Extremity: Range of Motionleft upper extremity ROM WFL; right upper extremity ROM WFL MMT: Upper Extremity: Manual Muscle Testing (MMT)left upper extremity strength WFL; right upper extremity strength WFL Mobility/Tone: Bed Mobility Assessment/Interventionssu pine to sit; sit to supine; scooting/bridging Scoot/Bridge Gilliam (Bed Mobility)maximum assist (25% patient effort); 2 person assist; MAX A x2 for lateral scooting towards R side while seated EOB to position self closer to HOB Utqlev-ds-Xtr Gilliam (Bed Mobility)dependent (less than 25% patient effort); 2 person assist; Total A x2 for managing BLE and trunk [id number]-vg-Ofxkzz Gilliam (Bed Mobility)dependent (less than 25% patient effort); 2 person assist; Total A x2 for managing BLE and trunk Transfer Assessment/Interventionssi t to stand transfer; stand to sit transfer Sit-Stand Gilliam (Transfers)maximum assist (25% patient effort); 2 person assist; MAX A x2 to ascend from EOB with gait belt, walker and arm and arm assist. required VCs for hand placement Sit-Stand Assistive Device (Transfers)walker, front-wheeled Stand-Sit Gilliam (Transfers)maximum assist (25% patient effort); 2 person assist Stand-Sit Assistive Device (Transfers)walker, front-wheeled Impairments Impacting Function (Mobility)balance; endurance/activity tolerance; strength; postural/trunk control ADL: BADL Assessment/Interventionlow er body dressing; upper body dressing Gilliam Level (Upper Body Dressing)maximum assist (25% patient effort) Position (Upper Body Dressing)supine Comment (Upper Body Dressing)MAX A for [facility] gown Gilliam Level (Lower Body Dressing)dependent (less than 25% patient effort) Comment (Lower Body Dressing)Total A for donning yoandy socks due to decreased strength and mobility Impairments, BADL Safety/Performancebalance; endurance/activity tolerance; strength; pain; trunk/postural control Motor: Sitting, Static (Balance)f (more content not included)... Normal [facility] Osmolality, Urine 24 Houron 08-29-2022 Osmolality (24H U) [Osmolality] 674 {mOsm/kg} 200 - 1200 [facility] Work Phone: Osmolality, Urine Spoton Osmolality (U) [Osmolality] Canceled [facility] Work Phone: PT Evaluation [id number] ton 08-29-2022 PT Evaluation [id number] Rehab: Info: Mode of Treatmentco-treatment; physical therapy Time IN11:16 Time OUT11:46 Total Treatment [id number] Total Minutes CommentCo-eval with OT to maximize patient participation and safety Patient in ... at end of sessionbed, 3 railings up; alarm on Communicated with ... at end of sessionbedside nurse Patient Effortgood Symptoms Noted During/After Treatmentfatigue; increased pain Patient Profile Reviewedyes Patient chart review by therapist. Per handoff with nursing prior to therapy visit, patients pain and vitals are stable. Additional concern for this patient related to therapy session: none. Onset of Illness/Injury or Date of [id number] Reason for Referralnew documented impairments affecting ADLs Referring PhysicianShapiro General Observations of Patientpt supine in bed upon arrival, family present for session. pt self-limiting and saying I can't move at all however agreeable with encouragement. Pt reporting had a recent fall with R knee pain/swelling. Pertinent History of Current Functional [place]qik[place]i25 year old Male with a past medical history of hypertension, hyperlipidemia, anemia, alcohol use disorder, BPH, anxiety, hypothyroidism, gouty arthritis who presented to [facility] complaining of worsening dysphagia to solid foods and malaise. He is able to swallow liquids and has had difficulty swallowing solids in the past 5 days getting worse to the point where he does not feel like eating. He denies any nausea but does have generalized weakness. He is having difficulty ambulating due to leg weakness. work up revealed hyponatremia, hyperbilirubinemia, and mildly elevated LA and BNP. Admitted to [facility] for further management. CT revealed a RUL nodule/mass for which pulmonary is consulted. Hearing Precautions/LimitationsWFL Precautions/Limitationsfal l precautions Ambulation Skills - Previous Level of Functionindependent Ind with FWW for short distances (10-15ft) Transfer Skills - Previous Level of Functionindependent ADL Skills - Previous Level of Functionindependent; Ind with simple ADLs, family/friends helped with IADLs. Hasn't drove since Covid began, spends most of his time in lift chair at home. Living Arrangementsapartment Lives Withalone Home AccessibilityLives in apartment alone however family/friends visit frequently. pt spends most of his time in his lift chair and sleeps on it. No stairs to negotiation within apartment. Owns FWW and lift chair. Line and TubesIV; telemetry; urethral catheter indwelling Vision/Cognition: Affect/Mental Status (Cognitive)confused Orientation Status (Cognition)oriented x 3 ROM: Upper Extremity: Range of Motionleft upper extremity ROM WFL; right upper extremity ROM WFL; see OT notes Lower Extremity: Range of MotionB hip and knee WFL PROM ankle to neutral dorsiflexion (painful) PROM B MMT: Upper Extremity: Manual Muscle Testing (MMT)see OT notes Lower Extremity: Manual Muscle Testing (MMT)R LE grossly 2+/5 L LE grossly 3-/5 Mobility/Tone: Bed Mobility Assessment/Interventionssu pine to sit; sit to supine; scooting/bridging Scoot/Bridge Gilliam (Bed Mobility)maximum assist (25% patient effort); 2 person assist; MAX A x2 for lateral scooting towards R side while seated EOB to position self closer to HOB Atzeyg-bg-Mlf Gilliam (Bed Mobility)dependent (less than 25% patient effort); 2 person assist; Total A x2 for managing BLE and trunk Pcw-fj-Iuwkpu Gilliam (Bed Mobility)dependent (less than 25% patient effort); 2 person assist; Total A x2 for managing BLE and trunk Transfer Assessment/Interventionssi t to stand transfer; stand to sit transfer Sit-Stand Gilliam (Transfers)maximum assist (25% patient effort); 2 person assist; MAX A x2 to ascend from EOB with gait belt, walker and arm and arm assist. required VCs for hand placement Sit-Stand Assistive Device (Transfers)walker, front-wheeled Stand-Sit Gilliam (Transfers)maximum assist (25% patient effort); 2 person assist Stand-Sit Assistive Device (Transfers)walker, front-wheeled Gait/Stairs Locomotiongait/ambulation independence; distance ambulated; gait deviations Gait Locomotion (Gait)maximum assist (25% patient effort); 2 person assist Distance in Feet (Gait Training)2 side sliding steps, with cuing for step sequencing and wait shift Gait Deviations Identified (Gait)decreased dillan; decreased stride length; antalgic Impairments Impacting Function (Mobility)balance; endurance/activity tolerance; strength; postural/trunk control Motor: Sitting, Static (Balance)fair balance Sitting, Dynamic (Balance)poor balance Wlm-od-Wcdnf (Balance)poor balance Standing, Static (Balance)poor balance Sensory: Pre-Treatment Pain Rating5/10 Post-Treatment Pain Rating7/10 Pain LocationR knee Health: Observed Emotional Statecooperative Plan of Care Reviewed Withpatient; family Impression: (more content not included)... Normal [facility] Patient Profile - Adult v2on 08-29-2022 Patient Profile - Adult v2 Profile: Initial Info: How to be AddressedDaniel Spoken Language PreferredEnglish Stated Reason for Admissionweakness, unable to eat Primary Contact Name and NumberCorwin [phone] Wants Family/Rep Notified of Admissionyes, primary contact Notify PCPnotify PCP Informed of Patient Visiting Rightsyes [place] [facility] Patient Belongings Remaining with Patientclothing Medications Brought to Hospitalno General Health: Weight in kg70 kilogram(s)(1) Weight in rzs110.3 pound(s) Weight Methodactual (measured) Scale Typebed Height in cm177.8 centimeter(s)(1) Height in feet5 feet Height in inch(es) Height Methodstated BMI (kg/m2)22.142 square meter RSP Based Care: How would you like to participate in your careKeep me updated What is the number one concern for you during this hospitalizationHelp my with my pain What is the most important thing we can do to support you during this hospitalizationI cough a lot and gag, I need tissues Is there anything we need to know to best care for youno Substance: Smoking Statusnever smoker Drug Usehistory of abuse Drug 2 Usedenies Substance Commentused to smoke marijuana daily - quit 6 months ago due to SOB. drinks a fifth of vodka a day, last drank 08/28 10am Health Mgmt: Symptoms/Conditions Managed at Homegastrointestinal Gastrointestinal Managementnot managed Relationship/Environ: Resource/Environmental Concernsnone Primary Source of Support/Comfortsibling(s) Lives Withalone Living Arrangementshouse Services Anticipated at Transitionrehabilitation services Anticipated Transition Toinpatient rehabilitation facility Significant IndicatorsComplete Information Review: Allergies, Home Meds and Significant Events have been Reviewed and Verified with Patient/Familyyes ALLERGY, INTOLERANCE, ADVERSE EVENT: Allergies: No Known Allergies: Active Electronic Signatures: Lorrie Bullard (RN) (Signed 29-Aug-2022 01:09) Authored: Initial Info, General Health, RSP Based Care, Substance, Health Mgmt, Relationship/Environ, Additional Information Last Updated: 29-Aug-2022 01:09 by Lorrie Bullard (REGULO) References: 1. Data Referenced From 1. Vital Signs 28-Aug-2022 17:07 Normal [facility] Provider Note - ED v3on 08-08 Provider Note - ED v3 Provider Note: Chart Review: ED NOTES ED NOTES: HPI: -No limitations to history taking. Patient is a 77-year-old male with a history of hypertension, hyperlipidemia, anemia, alcohol use disorder presents with worsening dysphagia discussed, with inability to tolerate p.o. over the past few days. Patient states this is worse with solids. Is still able to drink water without any difficulty. States that it is not slow process but acutely worsened. Denies any nausea. Patient also states that he has had weakness. Feels like bilateral legs are giving out and has not been able to get around his house without assistance. Brother brought him in for evaluation given weakness over the past few days ROS: A complete review of systems was performed and is otherwise negative except as noted in HPI PMH/PSH: Per HPI FH: Noncontributory SH: Endorses vodka daily Allergies: Reviewed per EMR Medications: Reviewed per EMR PE: Vital signs reviewed in nursing triage note, EMR flow sheets, and at patient's bedside. GEN: well appearing, no acute distress, slightly jaundiced HEAD: atraumatic EYES: PEERL, EOMI ENT: mmm, no rhinorrhea, uvula midline NECK: supple, no cervical LAD CVS/CHEST: reg rate, nl rhythm, no m/r/g PULM: No respiratory distress GI: distended abdomen, ND, no palpable abdominal masses EXT: no LE edema, 2+ periph pulses in bilat radial and DP NEURO: EOMs intact, no facial droop, no dysarthria, mental status intact to conversation, 4/5 strength globally, sensation intact throughout, SKIN: warm, dry, no rashes or ulcerations PSYCH: AAOx3 answers questions appropriately ED Course/Treatment/MDM: EKGnormal sinus rhythm, left axis, ventricular rate 59, intervals within normal limits MDM -Patient is a 77-year-old male who presents to the emergency department with weakness and dysphagia. Vital signs are unremarkable. Physical exam is notable for slightly jaundiced appearing male with weakness globally. Patient has no focal deficits. Lower concern for stroke. Believe patient is maintaining condition over the past few days. Patient has no abdominal tenderness however his gradual worsening dysphagia for solids and history of alcohol use is concerning for possible Tello's esophagus clinical consistent with malignancy. Concern for dehydration and nausea. Well given poor p.o. intake. Labs and CT chest abdomen pelvis ordered. Patient given a fluid bolus for his likely dehydration. VBG notable for lactate of 3.2 normal potassium. Remaining labs notable for elevated bilirubin normocytic anemia and mild thrombopenia. CT was notable for numerous findings including irregular nodular densities over, fusiform dilation of the aortic arch measuring up to 5 cm, esophagitis, thickening of mucosa of colon as well as possible acute hepatitis results discussed with patient. I recommended admission given his weakness. Patient expressed understanding and was amenable to plan. Patient states that he would like to be DNR if his condition were to decompensate. Patient was discussed with Dr. Sanchez and accepted for admission. Patient started on CIWA given his daily alcohol use and admitted in stable condition. Clinical Impression: - Esophagitis, Gastritis, hepatic lesions, pulmonary nodules Dispo - Admission Discussed with Dr. Ishaan Turcios MD PGY-3 HISTORY OF PRESENTING ILLNESS CHRISTOS is a 77 year old Male and was seen by me at 28-Aug-2022 18:12 for a chief complaint of failure to thrive . Other complaints include: Patient has a decreased appetite, and decreased mobility for a month. Pt has not had food for three days. Pt admits to drinking vodka daily. (1). Triage Information: Most recent Vital Sign Value Date Heart Rate (beats/min): 78 08-28-2022 17:07 Respirations (breaths/min): 16 08-28-2022 17:07 SpO2 (%): 96 08-28-2022 17:07 BP Systolic (mm Hg): 138 08-28-2022 17:07 BP Diastolic (mm Hg): 75 08-28-2022 17:07 PAST MEDICAL HISTORY ALLERGIES/INTOLERANCES: No Known Allergies HEALTH HISTORY: Medical History Name:Dysphagia Code:R13.10 Name:Lung mass Code:R91.8 Name:Hyponatremia Code:E87.1 Name:Alcoholic liver disease Code:K70.9 OUTPATIENT MEDICATIONS: Home Medications Review Status for Reconciliation: Complete Med Status: No Current Medications SIGNIFICANT EVENTS: Immunizations Description:Td - Tetanus-Diptheria DISPOSITION Diagnosis/Annotation: ED Dx Name:Weakness Code:R53.1 Name:Hepatitis, acute Code:B17.9 Name:Pulmonary nodule Code:R91.1 Disposition: hospitalized CONSULT Attestation: I saw and evaluated the patient. I personally obtained the higgins and critical portions of the history and physical exam or was physically present for higgins and critical portions performed by the resident/fellow. I reviewed the resident/fellows documentation and discussed the patient with (more content not included)... Normal [facility] SODIUM, URINE SPOTon 023 CREATININE,URINE 178.0 mg/dL Normal 20.0 - 370.0 [facility] Comment on above: Performed By: #### M G #### [facility] [address] [place] [address] Sodium (U) [Moles/Vol] 32 mmol/L Normal Not Established [facility] Comment on above: Performed By: #### M G #### [facility] [address] [place] [id number] SODIUM/CREAT RATIO 18 mmol/g Creat Normal Not Established [facility] Comment on above: Performed By: #### M G #### [facility] [address] [place] [id number] CREATININE,URINE 162.0 mg/dL Normal 20.0 - 370.0 [facility] Comment on above: Performed By: #### M G #### [facility] [address] [place] [id number] Sodium (U) [Moles/Vol] 16 mmol/L Normal Not Established [facility] Comment on above: Performed By: #### M G #### [facility] [address] [place] [id number] SODIUM/CREAT RATIO 10 mmol/g Creat Normal Not Established [facility] Comment on above: Performed By: #### M G #### [facility] [address] [place] [id number] UA MICROSCOPICon 08-29-2022 BACTERIA 1+ /HPF Abnormal [facility] Comment on above: Performed By: #### R ENAL #### [facility] [address] [place] [id number] Mucus Ql (Urine sed) 4+ /LPF Normal [facility] Comment on above: Performed By: #### R ENAL #### [facility] [address] [place] [id number] RBC none Normal 0-5 [facility] Comment on above: Performed By: #### R ENAL #### [facility] [address] [place] [id number] SQUAMOUS EPITH. CELLS 1 /HPF Normal [facility] Comment on above: Performed By: #### R ENAL #### [facility] [address] [place] [id number] WBC none Normal 0-5 [facility] Comment on above: Performed By: #### R ENAL #### [facility] [address] [place] [id number] URINALYSIS WITH CULTURE IF I NDICATEDon 08-29-2022 Appearance (U) CLEAR Normal CLEAR [facility] Comment on above: Performed By: #### V TB12 #### [facility] [address] [place] [address] Bilirubin Ql (U) MODERATE(2+) Abnormal NEGATIVE [facility] Comment on above: Performed By: #### V TB12 #### [facility] [address] [place] [address] Color (U) BROWN Normal STRAW,YELLOW [facility] Comment on above: Performed By: #### V TB12 #### [facility] [address] [place] [address] Glucose Ql (U) Negative Normal NEGATIVE [facility] Comment on above: Performed By: #### V TB12 #### [facility] [address] [place] [address] Hemoglobin Ql (U) TRACE Abnormal NEGATIVE [facility] Comment on above: Performed By: #### V TB12 #### [facility] [address] [place] [address] Ketones Ql (U) 25 (1+) Abnormal NEGATIVE [facility] Comment on above: Performed By: #### V TB12 #### [facility] [address] [place] [address] Leukocyte esterase Test strip Ql (U) Negative Normal NEGATIVE [facility] Comment on above: Performed By: #### V TB12 #### [facility] [address] [place] [address] Nitrite Ql (U) Negative Normal NEGATIVE [facility] Comment on above: Performed By: #### V TB12 #### [facility] [address] [place] [address] pH (U) 6.5 [pH] Normal 5.0 - 8.0 [facility] Comment on above: Performed By: #### V TB12 #### [place] [address] [place] [address] Protein Ql (U) 30 (1+) Abnormal NEGATIVE [facility] Comment on above: Performed By: #### V TB12 #### [facility] [address] [place] [address] Specific gravity (U) [Rel density] 1.025 Normal 1.005 - 1.035 [facility] Comment on above: Performed By: #### V TB12 #### [facility] [address] [place] [address] Urobilinogen (U) [Mass/Vol] mg/dL High 0.0 - 1.9 [facility] Comment on above: Result Comment: SOME PIGMENTS AND MEDICATIONS MAY CAUSE A FALSE POSITIVE UROBILINOGEN Performed By: #### V TB12 #### [facility] [address] [place] [address] Lab Specimen Source Normal [facility] Comment on above: Performed By: #### V TB12 #### [facility] [address] [place] [address] Color (U) BROWN See Below [facility] [employer] Work Phone: Comment on above: SOURCE: Reference Ra nge: STRAW,YELLOW Glucose Ql (U) Negative NEGATIVE -[facility] [employer] Work Phone: Ketones Ql (U) 25 (1+) Abnormal NEGATIVE [facility] [employer] Work Phone: Leukocyte esterase Test strip Ql (U) Negative NEGATIVE -[facility] [employer] Work Phone: pH (U) 6.5 [pH] 5.0 - 8.0 [facility] [employer] Work Phone: Protein (U) [Mass/Vol] 30 (1+) Abnormal NEGATIVE [facility] [employer] Work Phone: RBC (U) [#/Vol] TRACE Abnormal NEGATIVE [facility] [employer] Work Phone: Specific gravity (U) [Rel density] 1.025 1 See Below -[facility] Work Phone: Comment on above: Reference Range: 1.0 05 - 1.035 URINALYSIS WITH CULTURE IF INDICATED Negative NEGATIVE [facility] Work Phone: URINALYSIS WITH CULTURE IF INDICATED >12.0 above high threshold 0.0 - 1.9 [facility] Work Phone: Comment on above: SOME PIGMENTS AND ME DICATIONS MAY CAUSE AFALSE POSITIVE UROBILINOGEN URINALYSIS WITH CULTURE IF INDICATED MODERATE(2+) Abnormal NEGATIVE [facility] Work Phone: URINALYSIS WITH CULTURE IF INDICATED CLEAR CLEAR [facility] Work Phone: Urinalysis, Microscopicon Urinalysis, Microscopic 4+ [facility] Work Phone: Urinalysis, Microscopic 1+ Abnormal [facility] Work Phone: Urinalysis, Microscopic 1 {/HPF} [facility] Work Phone: Urinalysis, Microscopic none 0-5 [facility] Work Phone: VENOUS FULL PANELon 08-30-19 Anion gap [Moles/Vol] 6 mmol/L Low 10 - 25 [facility] Comment on above: Order Comment: CRIT SOD CALLED RB TO DAVE RILEY., 08/29/2022 03:32 Performed By: #### G ZOHREH #### [facility] [address] [place] [address] BASE EXCESS-BLOOD 9.3 mmol/L High -2.0 - 3.0 [facility] Comment on above: Order Comment: CRIT SOD CALLED RB TO DAVE RILEY., 08/29/2022 03:32 Performed By: #### G ZOHREH #### [facility] [address] [place] [address] BICARB, CALCULATED 34.3 mmol/L High 22.0 - 26.0 [facility] Comment on above: Order Comment: CRIT SOD CALLED RB TO DAVE RILEY., 08/29/2022 03:32 Performed By: #### G ZOHREH #### [facility] [address] [place] [address] CALCIUM,IONIZED 0.98 mmol/L Low 1.10 - 1.33 [facility] Comment on above: Order Comment: CRIT SOD CALLED RB TO DAVE RILEY., 08/29/2022 03:32 Performed By: #### G ZOHREH #### [facility] [address] [place] [address] Chloride [Moles/Vol] 82 mmol/L Low 98 - 107 [facility] Comment on above: Order Comment: CRIT SOD CALLED RB TO DAVE RILEY., 08/29/2022 03:32 Performed By: #### G ZOHREH #### [facility] [address] [place] [address] FIO2 21 % Normal [facility] Comment on above: Order Comment: CRIT SOD CALLED RB TO DAVE RILEY., 08/29/2022 03:32 Performed By: #### G ZOHREH #### [facility] [address] [place] [address] Glucose [Mass/Vol] 133 mg/dL High 74 - 99 [facility] Comment on above: Order Comment: CRIT SOD CALLED RB TO DAVE RILEY., 08/29/2022 03:32 Performed By: #### G ZOHREH #### [facility] [address] [place] [address] Hematocrit (Bld) [Volume fraction] 45.0 % Normal 41.0 - 52.0 [facility] Comment on above: Order Comment: CRIT SOD CALLED RB TO DAVE RILEY., 08/29/2022 03:32 Performed By: #### G ZOHREH #### [facility] [address] [place] [address] Hemoglobin (Bld) [Mass/Vol] 15.1 g/dL Normal 13.5 - 17.5 [facility] Comment on above: Order Comment: CRIT SOD CALLED RB TO REGULO XENIADAVE., 08/29/2022 03:32 Performed By: #### G ZOHREH #### [facility] [address] [place] [address] Lactate [Moles/Vol] 3.2 mmol/L High 0.4 - 2.0 [facility] Comment on above: Order Comment: CRIT SOD CALLED RB TO REGULO XENIADAVE., 08/29/2022 03:32 Performed By: #### G ZOHREH #### [facility] [address] [place] [address] OXY HGB 42.2 % Low 45.0 - 75.0 [facility] Comment on above: Order Comment: CRIT SOD CALLED RB TO DAVE RILEY., 08/29/2022 03:32 Performed By: #### G ZOHREH #### [facility] [address] [place] [address] Oxygen (Bld) [Partial pressure] 27 mm[Hg] Low 35 - 45 [facility] Comment on above: Order Comment: CRIT SOD CALLED RB TO DAVE RILEY., 08/29/2022 03:32 Performed By: #### G ZOHREH #### [facility] [address] [place] [address] PATIENT TEMPERATURE 37.0 degrees C Normal [facility] Comment on above: Order Comment: CRIT SOD CALLED RB TO REGULO XENIADAVE., 08/29/2022 03:32 Result Comment: NOTE : PATIENT RESULTS ARE NOT CORRECTED FOR TEMPERATURE. Performed By: #### G ZOHREH #### [facility] [address] [place] [address] PCO2 46 mmHg Normal 41 - 51 [facility] Comment on above: Order Comment: CRIT SOD CALLED RB TO DAVE RILEY., 08/29/2022 03:32 Performed By: #### G ZOHREH #### [facility] [address] [place] [address] pH (Bld) 7.48 [pH] High 7.33 - 7.43 [facility] Comment on above: Order Comment: CRIT SOD CALLED RB TO DAVE RILEY., 08/29/2022 03:32 Performed By: #### G ZOHREH #### [facility] [address] [place] [address] Potassium [Moles/Vol] 3.2 mmol/L Low 3.5 - 5.3 [facility] Comment on above: Order Comment: CRIT SOD CALLED RB TO DAVE RILEY., 08/29/2022 03:32 Performed By: #### G ZOHREH #### [facility] [address] [place] [address] SO2 43 % Low 45 - 75 [facility] Comment on above: Order Comment: CRIT SOD CALLED RB TO DAVE RILEY., 08/29/2022 03:32 Performed By: #### G ZOHREH #### [facility] [address] [place] [address] Sodium [Moles/Vol] 119 mmol/L Critically low 136 - 145 [facility] Comment on above: Order Comment: CRIT SOD CALLED RB TO DAVE RILEY., 08/29/2022 03:32 Result Comment: CRIT SOD CALLED RB TO DAVE RILEY., 08/29/2022 03:32 Performed By: #### G ZOHREH #### [facility] [address] [place] [address] Vital signson 08-29-2022 Oxygen saturation in Venous blood 43 % below low threshold 45 - 75 [facility] Work Phone: Alcohol, Serumon 08-28-2022 Ethanol [Mass/Vol] mg/dL [facility] Work Phone: Comment on above: FOR MEDICAL USE ONLY . .REF VALUES <10 BNPon 08-28-2022 Natriuretic peptide B (Bld) [Mass/Vol] 111 pg/mL High 0 - 99 [facility] Comment on above: Result Comment: . <1 00 pg/mL - Heart failure unlikely 100-299 pg/mL - Intermediate probability of acute heart . failure exacerbation. Correlate with clinical . context and patient history. >=300 pg/mL - Heart Failure likely. Correlate with clinical . context and patient history. BNP testing is performed using different testing methodology at [facility] than at other [facility]. Direct result comparisons should only be made within the same method. Performed By: #### M G #### [facility] [address] [place] [id number] CBC AND DIFFERENTIALon 08-28 % AUTOMATED IMMATURE GRAN 0.4 % Normal 0.0 - 0.9 [facility] Comment on above: Result Comment: Robyn ture Granulocyte Count (IG) includes promyelocytes, myelocytes and metamyelocytes but does not include bands. Percent differential counts (%) should be interpreted in the context of the absolute cell counts (cells/L). Performed By: #### G ZOHREH #### [facility] [address] [place] [address] Basophils (Bld) [#/Vol] 0.04 10*3/uL Normal 0.00 - 0.10 [facility] Comment on above: Performed By: #### G ZOHREH #### [facility] [address] [place] [address] Basophils/100 WBC (Bld) 0.4 % Normal 0.0 - 2.0 [facility] Comment on above: Performed By: #### G ZOHREH #### [facility] [address] [place] [id number] Erythrocyte distribution width (RBC) [Ratio] 14.4 % Normal 11.5 - 14.5 [facility] Comment on above: Performed By: #### G ZOHREH #### [facility] [address] [place] [address] Hematocrit (Bld) [Volume fraction] 32.3 % Low 41.0 - 52.0 [facility] Comment on above: Performed By: #### G ZOHREH #### [facility] [address] [place] [address] Hemoglobin (Bld) [Mass/Vol] 11.6 g/dL Low 13.5 - 17.5 [facility] Comment on above: Performed By: #### G ZOHREH #### [facility] [address] [place] [address] Lymphocytes (Bld) [#/Vol] 0.22 10*3/uL Low 0.80 - 3.00 [facility] Comment on above: Performed By: #### G ZOHREH #### [facility] [address] [place] [address] Lymphocytes/100 WBC (Bld) 2.3 % Normal 13.0 - 44.0 [facility] Comment on above: Performed By: #### G ZOHREH #### [facility] [address] [place] [address] MCHC (RBC) [Mass/Vol] 35.9 g/dL Normal 32.0 - 36.0 [facility] Comment on above: Performed By: #### G ZOHREH #### [facility] [address] [place] [address] MCV (RBC) [Entitic vol] 98 fL Normal 80 - 100 [facility] Comment on above: Performed By: #### G ZOHREH #### [facility] [address] [place] [address] Monocytes (Bld) [#/Vol] 0.29 10*3/uL Normal 0.05 - 0.80 [facility] Comment on above: Performed By: #### G ZOHREH #### [facility] [address] [place] [address] Monocytes/100 WBC (Bld) 3.1 % Normal 2.0 - 10.0 [facility] Comment on above: Performed By: #### G ZOHREH #### [facility] [address] [place] [address] Neutrophils (Bld) [#/Vol] 8.87 10*3/uL High 1.60 - 5.50 [facility] Comment on above: Performed By: #### G ZOHREH #### [facility] [address] [place] [address] Neutrophils/100 WBC (Bld) 93.8 % Normal 40.0 - 80.0 [facility] Comment on above: Performed By: #### G ZOHREH #### [facility] [address] [place] [address] Platelets (Bld) [#/Vol] 141 10*3/uL Low 150 - 450 [facility] Comment on above: Performed By: #### G ZOHREH #### [facility] [address] [place] [id number] RBC 3.30 x10E12/L Low 4.50 - 5.90 [facility] Comment on above: Performed By: #### G ZOHREH #### [facility] [address] [place] [address] WBC (Bld) [#/Vol] 9.5 10*3/uL Normal 4.4 - 11.3 [facility] Comment on above: Performed By: #### G ZOHREH #### [facility] [address] [place] [id number] COAGULATION SCREENon 023 aPTT Coag (Bld) [Time] 31 s Normal 26 - 39 [facility] Comment on above: Result Comment: THE APTT IS NO LONGER USED FOR MONITORING UNFRACTIONATED HEPARIN THERAPY. FOR MONITORING HEPARIN THERAPY, USE THE HEPARIN ASSAY. Performed By: #### C OAGS #### [facility] [address] [place] [address] PT Coag (PPP) [Time] 10.9 s Normal 9.8 - 13.4 [facility] Comment on above: Performed By: #### C OAGS #### [facility] [address] [place] [id number] PT, INR 0.9 Normal 0.9 - 1.1 [facility] Comment on above: Performed By: #### C OAGS #### [facility] [address] [place] [id number] COMPREHENSIVE PANELon 2022 Albumin [Mass/Vol] 4.2 g/dL Normal 3.4 - 5.0 [facility] Comment on above: Performed By: #### G ZOHREH #### [facility] [address] [place] [address] ALP [Catalytic activity/Vol] 174 U/L High 33 - 136 [facility] Comment on above: Performed By: #### G ZOHREH #### [facility] [address] [place] [address] ALT [Catalytic activity/Vol] 46 U/L Normal 10 - 52 [facility] Comment on above: Result Comment: Raysa ents treated with Sulfasalazine may generate falsely decreased results for ALT. Performed By: #### G ZOHREH #### [facility] [address] [place] [address] Anion gap [Moles/Vol] 19 mmol/L Normal 10 - 20 [facility] Comment on above: Performed By: #### G ZOHREH #### [facility] [address] [place] [address] AST [Catalytic activity/Vol] 127 U/L High 9 - 39 [facility] Comment on above: Result Comment: MILD HEMOLYSIS DETECTED. The result may be falsely elevated due to hemolysis or other interferents. Clinical correlation is recommended. Repeat testing may be considered. Performed By: #### G ZOHREH #### [facility] [address] [place] [address] Bilirubin [Mass/Vol] 4.9 mg/dL High 0.0 - 1.2 [facility] Comment on above: Performed By: #### G ZOHREH #### [facility] [address] [place] [address] Calcium [Mass/Vol] 8.7 mg/dL Normal 8.6 - 10.3 [facility] Comment on above: Performed By: #### G ZOHREH #### [facility] [address] [place] [address] Chloride [Moles/Vol] 79 mmol/L Low 98 - 107 [facility] Comment on above: Performed By: #### G ZOHREH #### [facility] [address] [place] [address] Creatinine [Mass/Vol] 0.59 mg/dL Normal 0.50 - 1.30 [facility] Comment on above: Performed By: #### G ZOHREH #### [facility] [address] [place] [address] eGFR MALE >90 Normal >90 [facility] Comment on above: Result Comment: CALC ULATIONS OF ESTIMATED GFR ARE PERFORMED USING THE 2020 CKD-EPI STUDY REFIT EQUATION WITHOUT THE RACE VARIABLE FOR THE IDMS-TRACEABLE CREATININE METHODS. https://jasn.asnjournals.org/content/early/ASN.3092032 988 Performed By: #### G ZOHREH #### [facility] [address] [place] [address] Glucose [Mass/Vol] 122 mg/dL High 74 - 99 [facility] Comment on above: Performed By: #### G ZOHREH #### [facility] [address] [place] [address] HCO3 (Bld) [Moles/Vol] 29 mmol/L Normal 21 - 32 [facility] Comment on above: Performed By: #### G ZOHREH #### [facility] [address] [place] [address] Potassium [Moles/Vol] 3.5 mmol/L Normal 3.5 - 5.3 [facility] Comment on above: Result Comment: MILD HEMOLYSIS DETECTED. The result may be falsely elevated due to hemolysis or other interferents. Clinical correlation is recommended. Repeat testing may be considered. Performed By: #### G ZOHREH #### [facility] [address] [place] [address] Protein [Mass/Vol] 7.4 g/dL Normal 6.4 - 8.2 [facility] Comment on above: Performed By: #### G ZOHREH #### [facility] [address] [place] [address] Sodium [Moles/Vol] 123 mmol/L Low 136 - 145 [facility] Comment on above: Performed By: #### G ZOHREH #### [facility] [address] [place] [address] Urea nitrogen [Mass/Vol] 10 mg/dL Normal 6 - 23 [facility] Comment on above: Performed By: #### G ZOHREH #### [facility] [address] [place] [id number] CORONAVIRUS 2019, SCREEN ASY MPTOMATICon 08-28-2022 SARS-CoV-2 (COVID-19) RNA NEVIN+probe Ql (Unsp spec) Not detected Normal Not Detected [facility] Comment on above: Result Comment: . This test has received [facility] Emergency Use Authorization (EUA) and has been verified by [facility]. This test is only authorized for the duration of time that circumstances exist to justify the authorization of the emergency use of in vitro diagnostic tests for the detection of SARS-CoV-2 virus and/or diagnosis of COVID-19 infection under section 564(b)(1) of the Act, 21 U.S.C. 360bbb-3(b)(1), unless the authorization is terminated or revoked sooner. [facility] is certified under CLIA-88 as qualified to perform high complexity testing. Testing is performed in the [facility] laboratory located at [address] [place] [address]. SARS-CoV-2/Flu/RSV Multiplex Test: Fact sheet for providers: https://www.fda.gov/media/107787/download Fact sheet for patients: https://www.fda.gov/media/229714/download Performed By: #### V TB12 #### [facility] [address] [place] [address] Lab Specimen Source Nasal, Nasopharyngeal Normal [facility] Comment on above: Performed By: #### V TB12 #### [facility] [address] [place] [address] CT CHEST ABDOMEN PELVIS W IV CONTRASTon 08-28-2022 CT CHEST ABDOMEN PELVIS W IV CONTRAST Patient Name: CHRISTOS LYONS STUDY: CT CHEST ABDOMEN PELVIS W IV CONTRAST; ; 08/28/2022 8:20 pm INDICATION: pain scleral icterus fatigue dysphagia . COMPARISON: None. ACCESSION NUMBER(S): [id number] ORDERING CLINICIAN: JORDAN TURCIOS TECHNIQUE: CT of the chest, abdomen and pelvis was obtained following IV administration of 75 cc Omnipaque 350. Multiplanar reformations. 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 HEART: Normal size. No pericardial effusion. MEDIASTINUM AND PAMELA: No pathologically enlarged thoracic lymph nodes. Calcified hilar nodes, in keeping with chronic granulomatous disease. Mildly patulous esophagus with mild wall thickening and fluid within its lumen, overall suggesting reflux esophagitis. Correlate clinically with GERD. Small sliding hiatal hernia containing a portion of gastric fundus. LUNG, PLEURA, LARGE AIRWAYS: Respiratory motion artifact slightly limits evaluation of lung parenchyma. There is branching subpleural irregular nodular density laterally in [...] No focal consolidation, pleural effusion, or pneumothorax. CHEST WALL AND LOWER NECK: Within normal limits. ABDOMEN: BONES: No acute osseous abnormality. Severe discogenic degeneration at L5-S1. Grade 1 anterolisthesis at L5-S1 secondary to chronic bilateral L5 spondylolysis. Grade 1 degenerative anterolisthesis at L4-L5, noting eibx-ri-[id number] L4-L5 facet osteoarthropathy. Ybya-fs-iojjhtmq discogenic degeneration in the remaining visible spine. Severe left glenohumeral and acromioclavicular and mild to moderate right glenohumeral and acromioclavicular osteoarthropathy. Small irregular sclerotic densities in the left aspect of the sacrum and right proximal humerus, right ischium, most likely bone islands. No suspicious osseous lesion is seen. ABDOMINAL WALL: Within normal limits. LIVER: Enlarged and diffusely hypoattenuating, with regions suggesting [...] MRI suggested. No other definite focal liver lesion. BILE DUCTS: Normal caliber. GALLBLADDER: Cholelithiasis. No wall thickening or pericholecystic fluid. PANCREAS: Within normal limits. SPLEEN: Small calcified granulomata. Otherwise, normal. ADRENALS: Within normal limits. KIDNEYS: Within normal limits. URETERS: No hydroureter. PELVIS: REPRODUCTIVE ORGANS: Prostate is enlarged. BLADDER: Perivesical fat stranding is suspicious for acute cystitis. Suggest clinical correlation with the need for urinalysis to exclude infection. VESSELS: Moderate partially calcified atherosclerosis of abdominal aorta and branch vessels. No vascular branch occlusion or definite flow limiting luminal narrowing is seen. RETROPERITONEUM: There is nonspecific retroperitoneal edema seen posterior to small-bowel loops, intercalating about common iliac vessels and right external iliac vessels and extending into the presacral regio (more content not included)... Normal [facility] CT Chest Abdomen Pelvis with IV Contraston 08-28-2022 CT Chest and Abdomen and Pelvis W contrast IV Normal [facility] Work Phone: Complete Blood Count + Diffe rentialon 08-28-2022 Basophils/100 WBC (Bld) 0.4 % 0.0 - 2.0 [facility] Work Phone: Erythrocyte distribution width (RBC) [Ratio] 14.4 % See Below [facility] Work Phone: Comment on above: Reference Range: 11. 5 - 14.5 Hematocrit (Bld) [Volume fraction] 32.3 % below low threshold See Below [facility] Work Phone: Comment on above: Reference Range: 41. 0 - 52.0 Hemoglobin (Bld) [Mass/Vol] 11.6 g/dL below low threshold See Below [facility] Work Phone: Comment on above: Reference Range: 13. 5 - 17.5 Lymphocytes/100 WBC (Bld) 2.3 % See Below [facility] Work Phone: Comment on above: Reference Range: 13. 0 - 44.0 MCHC (RBC) [Mass/Vol] 35.9 g/dL See Below [facility] Work Phone: Comment on above: Reference Range: 32. 0 - 36.0 MCV (RBC) [Entitic vol] 98 fL 80 - 100 [facility] Work Phone: Monocytes/100 WBC (Bld) 3.1 % 2.0 - 10.0 [facility] Work Phone: Neutrophils/100 WBC (Bld) 93.8 % See Below [facility] Work Phone: Comment on above: Reference Range: 40. 0 - 80.0 Platelets (Bld) [#/Vol] 141 10*3/uL below low threshold 150 - 450 [facility] Work Phone: RBC (Bld) [#/Vol] 3.30 {x10E12/L} below low threshold See Below [facility] Work Phone: Comment on above: Reference Range: 4.5 0 - 5.90 WBC (Bld) [#/Vol] 9.5 10*3/uL 4.4 - 11.3 [facility] Work Phone: Complete Blood Count + Differential 0.04 {x10E9/L} See Below [facility] Work Phone: Comment on above: Reference Range: 0.0 0 - 0.10 Complete Blood Count + Differential 0.29 {x10E9/L} See Below [facility] Work Phone: Comment on above: Reference Range: 0.0 5 - 0.80 Complete Blood Count + Differential 0.22 {x10E9/L} below low threshold See Below [facility] Work Phone: Comment on above: Reference Range: 0.8 0 - 3.00 Complete Blood Count + Differential 8.87 {x10E9/L} above high threshold See Below [facility] Work Phone: Comment on above: Reference Range: 1.6 0 - 5.50 Complete Blood Count + Differential 0.4 % 0.0 - 0.9 [facility] Work Phone: Comment on above: Immature Granulocyte Count (IG) includes promyelocytes, myelocytes and metamyelocytes but does not include bands. Percent differential counts (%) should be interpreted in the context of the absolute cell counts (cells/L). Coronavirus 2019 RNA by PCR, Screening Asymptomticon 08-28-2022 Coronavirus 2019 RNA by PCR, Screening Asymptomtic Not detected Normal See Below [facility] Work Phone: Comment on above: SOURCE: Nasal, Nasop haryngealReference Range: Not Detected.This test has received FDA Emergency Use Authorization (EUA) and has been verified by [facility]. This test is only authorized for the duration of time that circumstances exist to justify the authorization of the emergency use of in vitro diagnostic tests for the detection of SARS-CoV-2 virus and/or diagnosis of COVID-19 infection under section 564(b)(1) of the Act, 21 U.S.C. 360bbb-3(b)(1), unless the authorization is terminated or revoked sooner. [facility] is certified under CLIA-88 as qualified to perform high complexity testing. Testing is performed in the [facility] laboratory located at [address] [place] [address].SARS-CoV-2/Flu/RSV Multiplex Test: Fact sheet for providers: https://www.fda.gov/media/478903/downloadFact sheet for patients: https://www.fda.gov/media/037033/download Covid 19 Resultson 3 SARS-CoV-2 (COVID-19) RNA NEVIN+probe Ql (Unsp spec) NEGATIVE COVID-19 Test Coronaviruses are common world-wide and are the cause of many common colds. SARS-COV2 is a new coronavirus that began circulating worldwide in 2019 so we are calling it COVID-19. It has been estimated that four out of five patients with COVID-19 will recover at home without the need for medical attention. Symptoms of COVID-19 may include cough, fever, shortness of breath, loss of taste or smell and other flu-like symptoms including chills, sore muscles, sore throat, and headache. Severe illness is more common in older people and people with other health problems such as high blood pressure, obesity, and immune system problems. If the test is positive, you have COVID-19. You will be contacted by the ordering physicians office and instructed to remain on home isolation, in accordance with CDC guidelines. You may also be contacted by the [facility] to see if any of your close contacts may have been exposed to the virus and need to quarantine. If the test is negative, you likely do not have COVID-19 at this time, but you still may have a different illness that can spread to other people (like Influenza, or the Flu) and could still be at risk for getting COVID-19. We recommend that you stay away from other people to limit the spread of illness until your symptoms are improving and you are fever-free for 24 hours without the use of fever lowering medications such as acetaminophen or ibuprofen. No test is 100% accurate so if you are still concerned you may have COVID-19, talk to your doctor about the need to continue to stay away from others. Medicines Unless your provider told you not to use the following: Acetaminophen (Tylenol and others) is generally safe. Anti-inflammatory medications, such as Ibuprofen (Advil or Motrin) or Naproxen (Aleve) can also be used. Jqto-laz-blvdxxf cough and cold medicines can be used according to the instructions on the package. Some tgrb-dcr-polfcxl medicines also contain acetaminophen. Make sure you are not taking more than your recommended dose. For those not hospitalized, there is no specific treatment available for this illness. Antibiotics do not treat Coronaviruses. Follow-Up Follow up with your doctor by scheduling a virtual visit or consider follow-up at one of our urgent care fever clinics. If you are having difficulty breathing, or are very weak and having difficulty standing, this is a medical emergency. Call 911 or have someone take you to the nearest emergency room immediately. If possible, wear a facemask. Additional guidance from the CDC for patients who tested POSITIVE for COVID-19 How to isolate: Isolate yourself in a specific room at home and limit your contact with others. Use a separate bathroom from other members of the household, when possible. Leave home only to get essential medical care. Do not go to work, school or public areas. Avoid using public transportation, ride-sharing, or taxis. Restrict contact with pets and other animals. If you must care for your pet or be around animals while you are sick, wash your hands before and after your interaction and wear a facemask. Make sure that shared spaces in the home have good airflow, such as by an air conditioner or an opened window, weather permitting. Personal Hygiene Procedures: Wear a face mask when in the same room as other people or pets. If a face mask interferes with your breathing, others should wear a mask when sharing space with you. Frequent hand-washing: wash your hands with soap and water for at least 20 seconds. If soap and water are not available, use alcohol-based hand retail interior designer. Avoid touching your eyes, nose, and mouth with unwashed hands. Household Hygiene Procedures: Avoid sharing personal household items such as dishes, glassware, cups, eating utensils, towels or bedding with other people or pets in your home. After use, these items should be washed with soap and hot water. Disinfect all high-touch surfaces every day with antibacterial cleaning solutions such as Lysol wipes, bleach, cleansers, etc. High-touch surfaces include tabletops, doorknobs, bathroom fixtures, toilets, phones, keyboards, tablets and bedside tables. Immediately clean any surfaces that may have blood, poop or body fluids on them, using antibacterial cleaning solutions such as Lysol wipes, bleach, cleansers, etc. If clothing or bedding come into contact with blood, poop or body fluids, they should be washed immediately. Follow the directions on the laundry detergent and clothing labels but hot water is recommended when possible. Stopping home isolation precautions: If possible, consult your doctor before stopping home isolation precautions. According to the CDC, you can discontinue home isolation precautions when you have met both of these criteria: Your fever and respiratory symptoms have been gone for 24 roderick (more content not included)... Normal [facility] Laboratory - Chemistry and C hemistry - challengeon 08-28-2022 Anion gap 4 (BldV) [Moles/Vol] 7 mmol/L below low threshold 10 - 25 [facility] Work Phone: Base excess Calc (BldV) [Moles/Vol] 6.9 mmol/L above high threshold -2.0 - 3.0 [facility] Work Phone: Calcium.ionized (BldV) [Moles/Vol] 0.98 mmol/L below low threshold See Below [facility] Work Phone: Comment on above: Reference Range: 1.1 0 - 1.33 Chloride (BldV) [Moles/Vol] 89 mmol/L below low threshold 98 - 107 [facility] Work Phone: CO2 (BldV) [Partial pressure] 43 mm[Hg] 41 - 51 [facility] Work Phone: Glucose [Mass/Vol] 118 mg/dL above high threshold 74 - 99 [facility] Work Phone: HCO3 (Bld) [Moles/Vol] 31.3 mmol/L above high threshold See Below [facility] Work Phone: Comment on above: Reference Range: 22. 0 - 26.0 Lactate (BldV) [Moles/Vol] 3.2 mmol/L above high threshold 0.4 - 2.0 [facility] Work Phone: Oxygen (BldV) [Partial pressure] 26 mm[Hg] below low threshold 35 - 45 [facility] Work Phone: Oxyhemoglobin (BldV) [Mass fraction] 26.6 % below low threshold See Below [facility] Work Phone: Comment on above: Reference Range: 45. 0 - 75.0 pH (BldV) 7.47 [pH] above high threshold See Below [facility] Work Phone: Comment on above: Reference Range: 7.3 3 - 7.43 Potassium (BldV) [Moles/Vol] 2.9 mmol/L Critically low 3.5 - 5.3 [facility] Work Phone: Comment on above: RB TO JOSE PUGA, 19:40 Sodium (BldV) [Moles/Vol] 124 mmol/L below low threshold 136 - 145 [facility] Work Phone: Albumin BCP dye [Mass/Vol] 4.2 g/dL 3.4 - 5.0 [facility] Work Phone: ALP [Catalytic activity/Vol] 174 U/L above high threshold 33 - 136 [facility] Work Phone: ALT With P-5'-P [Catalytic activity/Vol] 46 U/L 10 - 52 [facility] [employer] Work Phone: Comment on above: Patients treated wit h Sulfasalazine may generate falsely decreased results for ALT. Anion gap [Moles/Vol] 19 mmol/L 10 - 20 [facility] [employer] Work Phone: AST With P-5'-P [Catalytic activity/Vol] 127 U/L above high threshold 9 - 39 [facility] [employer] Work Phone: Comment on above: MILD HEMOLYSIS DETEC ROHITH. The result may be falsely elevated due tohemolysis or other interferents. Clinical correlation is recommended.Repeat testing may be considered. Bilirubin [Mass/Vol] 4.9 mg/dL above high threshold 0.0 - 1.2 [facility] [employer] Work Phone: Calcium [Mass/Vol] 8.7 mg/dL 8.6 - 10.3 [facility] [employer] Work Phone: Chloride [Moles/Vol] 79 mmol/L below low threshold 98 - 107 [facility] [employer] Work Phone: CO2 [Moles/Vol] 29 mmol/L 21 - 32 [facility] [employer] Work Phone: Creatinine [Mass/Vol] 0.59 mg/dL See Below [facility] [employer] Work Phone: Comment on above: Reference Range: 0.5 0 - 1.30 Glucose [Mass/Vol] 122 mg/dL above high threshold 74 - 99 [facility] [employer] Work Phone: Natriuretic peptide B (Bld) [Mass/Vol] 111 pg/mL above high threshold 0 - 99 [facility] [employer] Work Phone: Comment on above: . <100 pg/mL - Heart failure [id number] pg/mL - Intermediate probability of acute heart. failure exacerbation. Correlate with clinical. context and patient history. >=300 pg/mL - Heart Failure likely. Correlate with clinical. context and patient history.BNP testing is performed using different testing methodology at [facility] than at other [facility]. Direct result comparisons should only be made within the same method. Potassium [Moles/Vol] 3.5 mmol/L 3.5 - 5.3 [facility] Work Phone: Comment on above: MILD HEMOLYSIS DETEC ROHITH. The result may be falsely elevated due tohemolysis or other interferents. Clinical correlation is recommended.Repeat testing may be considered. Protein [Mass/Vol] 7.4 g/dL 6.4 - 8.2 [facility] Work Phone: Sodium [Moles/Vol] 123 mmol/L below low threshold 136 - 145 [facility] Work Phone: Urea nitrogen [Mass/Vol] 10 mg/dL 6 - 23 [facility] Work Phone: Laboratory - Coagulationon 0 08-28-2022 aPTT Coag (PPP) [Time] 31 s 26 - 39 [facility] Work Phone: Comment on above: THE APTT IS NO LONGE R USED FOR MONITORING UNFRACTIONATED HEPARIN THERAPY. FOR MONITORING HEPARIN THERAPY, USE THE HEPARIN ASSAY. INR Coag (PPP) [Relative time] 0.9 {INR} 0.9 - 1.1 [facility] Work Phone: PT Coag (PPP) [Time] 10.9 s 9.8 - 13.4 [facility] Work Phone: Laboratory - Hematology and Cell countson 08-28-2022 Hematocrit Est (Bld) [Volume fraction] 34.0 % below low threshold See Below [facility] Work Phone: Comment on above: Reference Range: 41. 0 - 52.0 Hemoglobin (Bld) [Mass/Vol] 11.4 g/dL below low threshold See Below [facility] Work Phone: Comment on above: Reference Range: 13. 5 - 17.5 MAGNESIUMon 08-28-2022 Magnesium [Mass/Vol] 1.80 mg/dL Normal 1.60 - 2.40 [facility] Comment on above: Performed By: #### M G #### [facility] [address] [place] [address] Magnesium, Serumon 3 Magnesium [Mass/Vol] 1.80 mg/dL See Below -U [facility] Work Phone: Comment on above: Reference Range: 1.6 0 - 2.40 No Panel Informationon 08-28 Inhaled oxygen concentration 21 % [facility] Work Phone: >90 >90 [facility] Work Phone: Comment on above: CALCULATIONS OF ROSANA MATED GFR ARE PERFORMED USING THE 2020 CKD-EPI STUDY REFIT EQUATION WITHOUT THE RACE VARIABLE FOR THE IDMS-TRACEABLE CREATININE METHODS.https://jasn.asnjournals.org/content/early/ASN .2679126688 PHOSPHORUSon 08-28-2022 Phosphate [Mass/Vol] 2.0 mg/dL Low 2.5 - 4.9 [facility] Comment on above: Result Comment: The performance characteristics of phosphorus testing in heparinized plasma have been validated by the individual laboratory site where testing is performed. Testing on heparinized plasma is not approved by the FDA; however, such approval is not necessary. MILD HEMOLYSIS DETECTED. The result may be falsely elevated due to hemolysis or other interferents. Clinical correlation is recommended. Repeat testing may be considered. Performed By: #### R ENAL #### [facility] [address] [place] [address] Phosphorus, Serumon 08-29-19 23 Phosphate [Mass/Vol] 2.0 mg/dL below low threshold 2.5 - 4.9 [facility] Work Phone: Comment on above: The performance fransisca acteristics of phosphorus testing in heparinized plasma have been validated by the individual laboratory site where testing is performed. Testing on heparinized plasma is not approved by the FDA; however, such approval is not necessary.MILD HEMOLYSIS DETECTED. The result may be falsely elevated due tohemolysis or other interferents. Clinical correlation is recommended.Repeat testing may be considered. TROPONIN I, HIGH SENSITIVITY on 08-28-2022 TROPONIN I, HIGH SENSITIVITY 10 ng/L Normal 0 - 20 [facility] Comment on above: Result Comment: . Less than 99th percentile of normal range cutoff- Female and children under 18 years old <14 ng/L; Male <21 ng/L: Negative Repeat testing should be performed if clinically indicated. . Female and children under 18 years old 14-50 ng/L; Male 21-50 ng/L: Consistent with possible cardiac damage and possible increased clinical risk. Serial measurements may help to assess extent of myocardial damage. . >50 ng/L: Consistent with cardiac damage, increased clinical risk and myocardial infarction. Serial measurements may help assess extent of myocardial damage. . NOTE: Children less than 1 year old may have higher baseline troponin levels and results should be interpreted in conjunction with the overall clinical context. . NOTE: Troponin I testing is performed using a different testing methodology at [facility] than at other [facility]. Direct result comparisons should only be made within the same method. Performed By: #### M G #### [facility] [address] [place] [address] Tropinin I.cardiac panel High sensitivity method 10 ng/L 0 - 20 [facility] Work Phone: Comment on above: .Less than 99th perc entile of normal range cutoff-Female and children under 18 years old <14 ng/L; Male <21 ng/L: NegativeRepeat testing should be performed if clinically indicated. .Female and children under 18 years old 14-50 ng/L; Male 21-50 ng/L:Consistent with possible cardiac damage and possible increased clinical risk. Serial measurements may help to assess extent of myocardial damage. .>50 ng/L: Consistent with cardiac damage, increased clinical risk andmyocardial infarction. Serial measurements may help assess extent of myocardial damage. . NOTE: Children less than 1 year old may have higher baseline troponin levels and results should be interpreted in conjunction with the overall clinical context. .NOTE: Troponin I testing is performed using a different testing methodology at [facility] than at other [facility] hospitals. Direct result comparisons should only be made within the same method. Triage - EDon 08-28-2022 Triage - ED Chart Review: PRIMARY ASSESSMENT CHRISTOS LYONS's primary assessment is Within Defined Limits. The airway is open and patent. Breathing spontaneous and unlabored with clear breath sounds bilaterally. Circulation is normal with good peripheral pulses. Skin is warm and dry and color is normal for race. TREATMENT PRIOR TO ARRIVAL Treatment Prior to Arrival: Prior to arrival in the Emergency Department CHRISTOS LYONS had treatment conducted by EMS which included the following; see ambulance record. 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 Other Complaints: Patient has a decreased appetite, and decreased mobility for a month. Pt has not had food for three days. Pt admits to drinking vodka daily. Triage Date/Time: 28-Aug-2022 17:07 BRAULIO: 3 Vital Signs: Blood Pressure: 138/75 Mean: Heart Rate: 78 Respiratory Rate: 16 Pulse Oximetry: 96% Height: 5 feet 10.00 inches. 177.8 CM Weight: 154.3 pounds. Calculated 70.0 kg. Calculated BMI (kg/m2): 22.142 Calculated BSA (m2) 1.86 Sudhir Coma Scale: Best Eye Response: (E4) spontaneous Best Motor Response: (M6) obeys commands Best Verbal Response: (V5) oriented Sudhir Score: 15 Patient has homicidal thoughts: no Risk Screens Suicide Risk Screen In the Past Month: Have you wished you were or wished you could go to sleep and not wake up no In the Past Month: Have you had any actual thoughts of killing yourself no In Your Lifetime: Have you ever done anything, started to do anything, or prepared to do anything to end your life no Ayala Fall Scale Screening Has the patient fallen before (or is the patient in the ED as a result of a fall) has had a fall Does the patient have an impaired gait has impaired gait Is the patient cognitively impaired not cognitively impaired Ayala Fall Scale History of falling (immediate or previous) no (0) Secondary Diagnosis no (0) Intravenous Therapy/ Heparin/Saline Lock no (0) Gait/Transferring normal/bedrest/wheelchair (0) Ambulatory Aids none/bedrest/nurse assist (0) Mental Status oriented to own ability (0) Ayala Fall Risk Score: 0 Interventions: Ayala Fall Interventions: LOW INTERVENTIONS: *patient oriented to surroundings and call system, * patient/family falls education completed and documented, *patients fall status communicated during bedside handoff, *whiteboard updated, *mode of toileting discussed with patient, *bed in low position with brakes locked, *call light in reach, * non-skid footwear TRAVEL HISTORY Travel History Coronavirus Screening: no exposure or symptoms Travel Exposure History: NO travel to International locations in the past 30 days PAIN Pain Scale Used: BRIGETTE Past Medical History: Past Medical History Reviewedyes Electronic Signatures: Carly Cruz (EMT-P) (Signed 28-Aug-2022 17:10) Authored: Quick Triage, Risk Screens, Pain, Arrival, Pre-arrival, ABCD, Travel History, Chart Review, Past Medical History Domenica Soto (EMT-P) (Signed 28-Aug-2022 17:17) Authored: Quick Triage, Chart Review, Scores Last Updated: 28-Aug-2022 17:17 by Domenica Soto (EMT-P) Normal [facility] VENOUS FULL PANELon 08-29-19 23 Anion gap [Moles/Vol] 7 mmol/L Low 10 - 25 [facility] Comment on above: Order Comment: RB TO JOSE PUGA, 08/28/2022 19:40 Performed By: #### V FPA4 ####[facility] [id number] [place] [address] BASE EXCESS-BLOOD 6.9 mmol/L High -2.0 - 3.0 [facility] Comment on above: Order Comment: RB TO JOSE PUGA, 08/28/2022 19:40 Performed By: #### V FPA4 ####[facility] [id number] [place] [address] BICARB, CALCULATED 31.3 mmol/L High 22.0 - 26.0 [facility] Comment on above: Order Comment: RB TO JOSE PUGA, 08/28/2022 19:40 Performed By: #### V FPA4 ####[facility]22 CALCIUM,IONIZED 0.98 mmol/L Low 1.10 - 1.33 [facility] Comment on above: Order Comment: RB TO JOSE PUGA, 08/28/2022 19:40 Performed By: #### V FPA4 ####[facility]22 Chloride [Moles/Vol] 89 mmol/L Low 98 - 107 [facility] Comment on above: Order Comment: RB TO JOSE PUGA, 08/28/2022 19:40 Performed By: #### V FPA4 ####[facility] [place] [address] FIO2 21 % Normal [facility] Comment on above: Order Comment: RB TO JOSE PUGA, 08/28/2022 19:40 Performed By: #### V FPA4 ####[facility] [place] [address] Glucose [Mass/Vol] 118 mg/dL High 74 - 99 [facility] Comment on above: Order Comment: RB TO JOSE PUGA, 08/28/2022 19:40 Performed By: #### V FPA4 ####[facility] [place] [id number] Hematocrit (Bld) [Volume fraction] 34.0 % Low 41.0 - 52.0 [facility] Comment on above: Order Comment: RB TO JOSE PUGA, 08/28/2022 19:40 Performed By: #### V FPA4 ####[facility] [place] [address] Hemoglobin (Bld) [Mass/Vol] 11.4 g/dL Low 13.5 - 17.5 [facility] Comment on above: Order Comment: RB TO JOSE PUGA, 08/28/2022 19:40 Performed By: #### V FPA4 ####[facility] [place] [address] Lactate [Moles/Vol] 3.2 mmol/L High 0.4 - 2.0 [facility] Comment on above: Order Comment: RB TO JOSE PUGA, 08/28/2022 19:40 Performed By: #### V FPA4 ####[facility] [place] [address] OXY HGB 26.6 % Low 45.0 - 75.0 [facility] Comment on above: Order Comment: RB TO JOSE PUGA, 08/28/2022 19:40 Performed By: #### V FPA4 ####[facility] [place] [address] Oxygen (Bld) [Partial pressure] 26 mm[Hg] Low 35 - 45 [facility] Comment on above: Order Comment: RB TO JOSE PUGA, 08/28/2022 19:40 Performed By: #### V FPA4 ####[facility] [place] [address] PATIENT TEMPERATURE 37.0 degrees C Normal [facility] Comment on above: Order Comment: RB TO JOSE PUGA, 08/28/2022 19:40 Result Comment: NOTE : PATIENT RESULTS ARE NOT CORRECTED FOR TEMPERATURE. Performed By: #### V FPA4 ####[facility] [id number] [place] [address] PCO2 43 mmHg Normal 41 - 51 [facility] Comment on above: Order Comment: RB TO JOSE PUGA, 08/28/2022 19:40 Performed By: #### V FPA4 ####[facility] [place] [address] pH (Bld) 7.47 [pH] High 7.33 - 7.43 [facility] Comment on above: Order Comment: RB TO JOSE PUGA, 08/28/2022 19:40 Performed By: #### V FPA4 ####[facility] [id number] [place] [address] Potassium [Moles/Vol] 2.9 mmol/L Critically low 3.5 - 5.3 [facility] Comment on above: Order Comment: RB TO JOSE PUGA, 08/28/2022 19:40 Result Comment: RB T O JOSE PUGA, 08/28/2022 19:40 Performed By: #### V FPA4 ####[facility] [id number] [place] [address] SO2 27 % Low 45 - 75 [facility] Comment on above: Order Comment: RB TO JOSE PUGA, 08/28/2022 19:40 Performed By: #### V FPA4 ####[facility] [id number] [place] [address] Sodium [Moles/Vol] 124 mmol/L Low 136 - 145 [facility] Comment on above: Order Comment: RB TO JOSE PUGA, 08/28/2022 19:40 Performed By: #### V FPA4 ####[facility] [id number] [place] [address] Vital signson 08-28-2022 Oxygen saturation in Venous blood 27 % below low threshold 45 - 75 [facility] Work Phone: Office Visit (Internal Medic ine)on 04-23-2020 Follow-up visit Diagnoses/Problems Assessed Anxiety (300.00) (F41.9) Anemia (285.9) (D64.9) Blood pressure elevated without history of HTN (796.2) (R03.0) BPH with obstruction/lower urinary tract symptoms (600.01,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,N13.8) Hypothyroidism (244.9) (E03.9) Primary osteoarthritis of right knee (715.16) (M17.11) Abnormal prostate specific antigen (PSA) (790.93) (R97.20) Orders PMH: History of acute gouty arthritis Renew: Allopurinol 300 MG Oral Tablet; TAKE ONE TABLET BY MOUTH EVERY DAY Rx By: Edward Quintana; Dispense: 0 Days ; #:90 Tablet; Refill: 1;For: PMH: History of acute gouty arthritis; TABITHA = N; Verified Transmission to [facility] #[id number]; Last Updated By: Lula Manning; 04/23/2020 2:56:43 PM Patient Discussion/Summary This visit was completed via Face Time due to the restrictions of the COVID-19 pandemic. All issues were discussed and addressed but no physical examination was performed. If it was felt that the patient should be evaluated in clinic then they were directed there.. THe patient verbally consented to the visit - HTN - hypertension well/controlled.Target BP < 130/80 well/not achieved. Educate low salt diet and exercise with weight loss. Educate home self monitoring and diary keeping. Educate risks of elevate blood pressure and benefits of prompt treatment. Hypercholesterolemia - Monitor lipid profile and educate patient upon risks of high cholesterol and targets. Educate diet and change in lifestyle and increase in exercises - and educate compliance with medication and diet. Chronic gout - with pain and swelling and redness - educate extensively diet and refill: Allopurinol 300 mg daily -= and pain control Anemia - possible of chronic disease - check Thyroid function and give B12 IM now and consider possible Metformin effect - and monitor colonoscopy and EGD - also monitor Hematocrit and Hemoglobin Abnormal PSA _ High PSA - asymptomatic now and feels well - refuses follow up and had seen urology in July of 2018 - aware of risks of prostate cancer Provider Impressions This visit was completed via Face Time due to the restrictions of the COVID-19 pandemic. All issues were discussed and addressed but no physical examination was performed. If it was felt that the patient should be evaluated in clinic then they were directed there.. THe patient verbally consented to the visit - HTN - hypertension well/controlled .Target BP < 130/80 well/not achieved. Educate low salt diet and exercise with weight loss. Educate home self monitoring and diary keeping. Educate risks of elevate blood pressure and benefits of prompt treatment. Hypercholesterolemia - Monitor lipid profile and educate patient upon risks of high cholesterol and targets. Educate diet and change in lifestyle and increase in exercises - and educate compliance with medication and diet. Chronic gout - with pain and swelling and redness - educate extensively diet and refill: Allopurinol 300 mg daily -= and pain control Anemia - possible of chronic disease - check Thyroid function and give B12 IM now and consider possible Metformin effect - and monitor colonoscopy and EGD - also monitor Hematocrit and Hemoglobin Abnormal PSA - High PSA - asymptomatic now and feels well - refuses follow up and had seen urology in July of 2018 - aware of risks of prostate cancer Chief Complaint An interactive audio and video telecommunication system which permits real time communications between the patient (at the originating site) and provider (at the distant site) was utilized to provide this telehealth service. Follows up for hypertension - and high cholesterol and Anemia - follows for high PSA - the patient is asymptomatic and followed with urology in July of 2018 - Review of Systems Constitutional: not feeling poorly, no fever, no recent weight gain and no recent weight loss. Eyes: no blurred vision and no diplopia. ENT: no hearing loss, no tinnitus, no earache, no sore throat, no hoarseness and no swollen glands in the neck. Cardiovascular: no chest pain, no tightness or heavy pressure, no shortness of breath, no palpitations and no lower extremity edema. Respiratory: no cough, not coughing up sputum and no wheezing that is consistent with asthma. Gastrointestinal: no change in bowel habits, no diarrhea, no constipation, no bloody stools, no nausea, no vomiting, no abdominal pain, no signs and symptoms of ulcer disease, no cass colored stools and no intolerance to fatty foods. Genitourinary: no urinary frequency, no dysuria, no hematuria, no burning sensation during urination, urinary stream is not smaller and urinary stream does not start and stop. Musculoskeletal: no arthralgias, no joint stiffness, no muscle weakness, no back pain and no difficulty walking. Skin: no rashes, no change in skin color and pigmentation, no skin lesions and no skin lumps. Neurological: no headaches, no dizziness, no seizures, no tingling, no numbness, no signs and symptoms of stroke and (more content not included)... [facility] Vital Signs Date Time Vital Sign Value Performing Clinician Facility 12-30-2022 07:56-0400 Body height 182.9 cm [facility] Highlighter [facility] Work Phone: [facility] 12-30-2022 07:56-0400 Body mass index (BMI) [Ratio] 29.02 kg/m2 [facility] Work Phone: [facility] 12-30-2022 07:56-0400 Body temperature 97.9 [degF] Kalyn Quinonez WIRE PREPARATION WORKER - WANT AD SUPERVISOR Work Phone: [facility] 12-30-2022 07:56-0400 Body weight 97.07 kg Kalyn Quinonez WIRE PREPARATION WORKER - WANT AD SUPERVISOR Work Phone: [facility] 12-30-2022 07:56-0400 Diastolic blood pressure 72 mm[Hg] Kalyn Quinonez WIRE PREPARATION WORKER - WANT AD SUPERVISOR Work Phone: [facility] 12-30-2022 07:56-0400 Heart rate 68 /min Kalyn Quinonez WIRE PREPARATION WORKER - WANT AD SUPERVISOR Work Phone: [facility] 12-30-2022 07:56-0400 Systolic blood pressure 122 mm[Hg] Kalyn Quinonez WIRE PREPARATION WORKER - WANT AD SUPERVISOR Work Phone: [facility] [facility] 08-29-2022 03:23-0400 Body temperature 37.0 {degrees_C} Brian Jean Work Phone: [facility] Work Phone: Comment on above: NOTE: PATIENT RESULTS ARE NOT CORRECTED FOR TEMPERATURE. 08-28-2022 19:20-0400 Body temperature 37.0 {degrees_C} Brian Jean [facility] Work Phone: Comment on above: NOTE: PATIENT RESULTS ARE NOT CORRECTED FOR TEMPERATURE. Encounters Encounter Date Encounter Type Care Provider Facility Start: 08-07-2024 End: 08-07-2024 ambulatory Henry REID Facility:[facility] Start: 06-05-2024 End: 06-29-2024 Telephone encounter Barron Giraldo MD Work Phone: [facility] Clinical Communication Comment on above: Cancelled Appointmen t Start: 06-05-2024 ambulatory Henry REID Facil ity:[facility] Start: 05-24-2024 End: 05-24-2024 Telephone encounter Barron Giraldo MD Work Phone: [facility] [place] Start: 05-10-2024 ambulatory Henry REID Facil ity:[facility] Start: 04-12-2024 End: 04-12-2024 ambulatory Henry REID Facility:[facility] Start: 02-14-2024 End: 02-14-2024 ambulatory Henry REID Facility:[facility] Start: 02-09-2024 End: 02-09-2024 ambulatory Henry REID Facility:[facility] Start: 02-07-2024 End: 02-07-2024 ambulatory Henry REID Facility:[facility] Start: 09-07-2023 ambulatory Henry REID Facil ity:[facility] Start: 06-09-2023 End: 06-09-2023 ambulatory [facility] Work Phone: Start: 06-09-2023 End: 06-09-2023 Departed Referred [facility] [address] Start: 05-10-2023 End: 05-10-2023 ambulatory [facility] Work Phone: Start: 05-10-2023 End: 05-10-2023 Departed Referred [facility] [address] Start: 04-29-2023 Telephone encounter Kalyn Bhardwaj tanner WIRE PREPARATION WORKER - WANT AD SUPERVISOR Work Phone: [facility] Comment on above: Scheduling Start: 03-11-2023 End: 03-11-2023 ambulatory [facility] Work Phone: Start: 03-11-2023 End: 03-11-2023 Departed Referred [facility] [address] Start: 01-17-2023 End: 01-17-2023 Departed Referred [facility] [place] - [address] Start: 01-17-2023 Registered Referred [facility] [place] - [address] Start: 01-13-2023 End: 01-13-2023 ambulatory [facility] Work Phone: Start: 01-13-2023 End: 01-13-2023 Departed Referred [facility] [place] - [address] Start: 01-13-2023 [facility] [address] [facility] Start: 01-05-2023 End: 01-05-2023 ambulatory [facility] Work Phone: Start: 01-05-2023 End: 01-05-2023 [facility] [address] Start: 01-05-2023 [facility] Start: 01-03-2023 End: 01-03-2023 ambulatory [facility] Work Phone: Start: 01-03-2023 End: 01-03-2023 [facility] [address] Start: 12-30-2022 End: 12-30-2022 Office outpatient new 45 minutes Kalyn Hurtado CNP Work Phone: [facility] Comment on above: Elevated LFTs (Prima ry Dx); Abnormal CT of liver; History of alcohol abuse; Incontinence of feces, unspecified fecal incontinence type Start: 10-25-2022 End: 10-25-2022 Office outpatient new 45 minutes Barron Giraldo MD Work Phone: [facility] Comment on above: Elevated PSA (Primar y Dx); BPH with urinary obstruction Start: 10-18-2022 End: 10-18-2022 ambulatory [facility] Work Phone: Start: 10-18-2022 End: 10-18-2022 [facility] [address] Start: 10-01-2022 End: 10-01-2022 ambulatory [facility] Work Phone: Start: 10-01-2022 End: 10-01-2022 Dep[facility]ed [facility] [address] Start: 09-20-2022 [facility]istered [facility] Start: 09-15-2022 Registered Referred [facility] 100 Start: 09-13-2022 Registered Referred [facility] 100 Start: 09-07-2022 Chart Update Brian Jean Work Phone: [facility] Work Phone: Start: 09-06-2022 Registered Referred [facility] 100 Start: 08-29-2022 End: 09-04-2022 Evaluation and management of inpatient Dr. Polo Sanchez Facility:[facility] Procedures Date Procedure Procedure Detail Performing Clinician Start: 10-01-2022 Investigation of transfusion reaction Start: 10-01-2022 Microbial culture, routine Start: 08-31-2022 Echocardiography Christos Jean Work Phone: Microbial culture, routine NEGATED: Highlighted row has not occurred! Denies Prior Surgical Procedure Not Done Brian Jean Work Phone: Plan of Treatment Date Care Activity Detail Author Start: 06-11-2024 End: 06-11-2024 Patient encounter procedure 06/11/2024 11:50 AM EST Office Visit [facility] [place] [address] [place] [address] Barron Giraldo MD [address] [place] [address] [facility] [place] Start: 05-09-2024 Medicare Advantage Annual Wellness Visit Medicare Advantage Annual Wellness Visit [facility] Start: 01-08-2024 COVID-19 Vaccine ( season) COVID-19 Vaccine ( season) [facility] Start: 01-08-2024 Influenza vaccination Influenza Vaccine (#1) [facility] Start: 05-16-2023 End: 05-16-2023 Patient encounter procedure 05/16/2023 9:30 AM EST Office Visit [facility] [address] [place] [address] Barron Giraldo MD [address] [place] [address] [facility] Start: 05-09-2023 Medicare Advantage Annual Wellness Visit Medicare Advantage Annual Wellness Visit [facility] Start: 04-26-2023 End: 10-26-2023 PSA Total PSA Total Lab Routine Elevated PSA Expected: 04/26/2023 (Approximate), Expires: 10/26/2023 [facility] Work Phone: Comment on above: Expected: 04/26/2023 (Approximate), Expi res: 10/26/2023 Start: 01-07-2023 COVID-19 Vaccine () COVID-19 Vaccine () [facility] Start: 01-07-2023 Influenza vaccination [facility] Start: 12-30-2022 End: 12-31-2023 Anti-smooth muscle antibody titer Anti-smooth muscle antibody titer Lab Routine Elevated LFTs Expected: 12/30/2022 (Approximate), Expires: 12/31/2023 [facility] Comment on above: Expected: 12/30/2022 (Approximate), Expi res: 12/31/2023 Start: 12-30-2022 End: 12-31-2023 Antimitochondrial antibody Antimitochondrial antibody Lab Routine Elevated LFTs Expected: 12/30/2022 (Approximate), Expires: 12/31/2023 [facility] Comment on above: Expected: 12/30/2022 (Approximate), Expi res: 12/31/2023 Start: 12-30-2022 End: 12-31-2023 CBC panel - Blood by Automated count CBC Lab Routine Elevated LFTs Abnormal CT of liver Expected: 12/30/2022 (Approximate), Expires: 12/31/2023 [facility] Comment on above: Expected: 12/30/2022 (Approximate), Expi res: 12/31/2023 Start: 12-30-2022 End: 12-31-2023 Comprehensive metabolic 1998 panel - Serum or Plasma Comprehensive metabolic panel Lab Routine Elevated LFTs Expected: 12/30/2022 (Approximate), Expires: 12/31/2023 [facility] Comment on above: Expected: 12/30/2022 (Approximate), Expi res: 12/31/2023 Start: 12-30-2022 End: 12-31-2023 Creatinine [Mass/volume] in Serum or Plasma Creatinine, Serum Lab Routine Elevated LFTs Abnormal CT of liver Expected: 12/30/2022 (Approximate), Expires: 12/31/2023 [facility] Comment on above: Expected: 12/30/2022 (Approximate), Expi res: 12/31/2023 Start: 12-30-2022 End: 12-31-2023 Ferritin [Mass/volume] in Serum or Plasma Ferritin Lab Routine Elevated LFTs Expected: 12/30/2022 (Approximate), Expires: 12/31/2023 [facility] Comment on above: Expected: 12/30/2022 (Approximate), Expi res: 12/31/2023 Start: 12-30-2022 End: 12-31-2023 Hepatitis 1996 panel - Serum Hepatitis panel, acute Lab Routine Elevated LFTs Expected: 12/30/2022 (Approximate), Expires: 12/31/2023 [facility] Comment on above: Expected: 12/30/2022 (Approximate), Expi res: 12/31/2023 Start: 12-30-2022 End: 12-31-2023 Iron and Iron binding capacity panel - Serum or Plasma Iron and TIBC Lab Routine Elevated LFTs Expected: 12/30/2022 (Approximate), Expires: 12/31/2023 [facility] Comment on above: Expected: 12/30/2022 (Approximate), Expi res: 12/31/2023 Start: 12-30-2022 End: 12-31-2023 Liver-Kidney Microsome 1 Ab Liver-Kidney Microsome 1 Ab Lab Routine Elevated LFTs Expected: 12/30/2022 (Approximate), Expires: 12/31/2023 [facility] Comment on above: Expected: 12/30/2022 (Approximate), Expi res: 12/31/2023 Start: 12-30-2022 End: 12-31-2023 MR Abdomen WO and W contrast IV MR abdomen w and wo contrast Imaging Routine Elevated LFTs Abnormal CT of liver Expected: 12/30/2022, Expires: 12/31/2023 [facility] Work Phone: Comment on above: Expected: 12/30/2022, Expires: Start: 12-30-2022 End: 12-31-2023 Nuclear Ab [Titer] in Serum by Immunofluorescence BRANDON Lab Routine Elevated LFTs Expected: 12/30/2022 (Approximate), Expires: 12/31/2023 [facility] Comment on above: Expected: 12/30/2022 (Approximate), Expi res: 12/31/2023 Start: 12-30-2022 End: 12-31-2023 Pancreatic elastase, fecal Pancreatic elastase, fecal Lab Routine History of alcohol abuse Incontinence of feces, unspecified fecal incontinence type Expected: 12/30/2022 (Approximate), Expires: 12/31/2023 [facility] Comment on above: Expected: 12/30/2022 (Approximate), Expi res: 12/31/2023 Start: 12-30-2022 End: 12-31-2023 Prothrombin time (PT) in Blood by Coagulation assay Protime-INR Lab Routine Elevated LFTs Expected: 12/30/2022 (Approximate), Expires: 12/31/2023 [facility] Comment on above: Expected: 12/30/2022 (Approximate), Expi res: 12/31/2023 Start: 11-18-2022 End: 11-18-2022 Patient encounter procedure 11/18/2022 9:20 AM EDT Office Visit [facility] [address] [place] [id number] Kalyn Quinonez APRN [address] [address] [facility] Start: 11-01-2022 NPV, Provider: Malou Bowen, Status: Pen, Time: 8:00 AM NPV, Provider: Malou Bowen, Status: Pen, Time: 8:00 AM [facility] Work Phone: Start: 08-18-2019 RSV Immunization for Adults (1 - 1-dose 75+ series) RSV Immunization for Adults (1 - 1-dose 75+ series) [facility] Start: 05-21-2014 DTaP/Tdap/Td Vaccines (1 - Tdap) DTaP/Tdap/Td Vaccines (1 - Tdap) [facility] Start: 2009 Pneumococcal Vaccine: 65+ Years (1 - PCV) Pneumococcal Vaccine: 65+ Years (1 - PCV) [facility] Start: 2009 Pneumococcal Vaccine: 65+ Years (1 of 1 - PCV) Pneumococcal Vaccine: 65+ Years (1 of 1 - PCV) [facility] Start: 2004 Hepatitis B Vaccines (1 of 3 - Risk 3-dose series) Hepatitis B Vaccines (1 of 3 - Risk 3-dose series) [facility] Start: 2004 RSV Immunization aged 60 or older (1 - 1-dose 60+ series) RSV Immunization aged 60 or older (1 - 1-dose 60+ series) [facility] Start: 1994 Zoster Vaccines (1 of 2) Zoster Vaccines (1 of 2) [facility] Start: 08-18-1963 Hepatitis A Vaccines (1 of 2 - Risk 2-dose series) Hepatitis A Vaccines (1 of 2 - Risk 2-dose series) [facility] Start: 08-18-1963 Pneumococcal Vaccine: 50+ Years (1 of 2 - PCV) Pneumococcal Vaccine: 50+ Years (1 of 2 - PCV) [facility] Start: 1962 Diabetes: Estimated Glomerular Filtration Rate for Kidney Health Diabetes: Estimated Glomerular Filtration Rate for Kidney Health [facility] Start: 1962 Diabetes: Urine Albumin-Creatinine Ratio for Kidney Health Diabetes: Urine Albumin-Creatinine Ratio for Kidney Health [facility] Start: 1962 Hepatitis C screening Hepatitis C Screening [facility] Start: 1956 Depression Screening Depression Screening [facility] Start: 02-16-1945 COVID-19 Vaccine (#1) COVID-19 Vaccine (#1) [facility] Start: 1945 Thyroid stimulating hormone measurement TSH Level [facility] Payers Date Payer Category Payer Unknown [id number] 2023 Medicaid [id number] 2023 Self-pay 2022 Medicare [employer]ARE UHC MEDICARE ADVANTAGE [id number] 2022-Present [id number] [place] [address] Medicare HMO [id number] 2022 Medicare [facility] MEDICARE ADV ANTAGE [facility] Address: [place] [address] [id number] 1945 Unknown [id number] Medicare MEDICARE PART A B [id number] Private Health Insurance [id number] Unknown Unknown [id number] Unknown [id number] Unknown [id number] Unknown [id number] Unknown [id number] Unknown [id number] Unknown [id number] Unknown [id number] Social History Date Type Detail Facility Start: 10-25-2022 End: 12-30-2022 Self-employed Self-employed [facility] Work Phone: Start: 1945 Sex Assigned At Male [facility] Start: 10-25-2022 Tobacco smoking stat us NHIS Never smoked tobacco [facility] Start: 10-25-2022 Tobacco use and exposure Smokeless tobacco non-user [facility] Start: 10-25-2022 End: 12-30-2022 Alcohol intake Ex-drinker (finding) [facility] Start: 1945 Sex Assigned At Not on file [facility] Start: 10-25-2022 End: 12-30-2022 Gender identity Not on file [facility] Start: 10-15-2022 End: 12-30-2022 Exposure to SARS-CoV-2 (event) Not sure [facility] Start: 09-22-2022 Sex Male (finding) [facility] Uriel gallegos Clinical Notes 08-29-2022 to 06-05-2024 Telephone Encounter - Serene Ron - 06/05/2024 3:28 PM ESTTelephone Encounter - Serene Ron - 06/05/2024 3:28 PM ESTTelephone Encounter - Shana Tana - 05/24/2024 10:28 AM ESTAttachments Note Date & Type Note Facility 06-05-2024 Telephone encounter Note Name of Caller: So ([employer]) Contact Reason for Appointment: So called instating Pt wanted to cancel his 06/11 appt and does not want to r/s at this time. Please be advised Office Name: [facility] Urology [facility] 06-05-2024 Miscellaneous Notes Name of Caller: So ([employer]) Contact Reason for Appointment: So called instating Pt wanted to cancel his 06/11 appt and does not want to r/s at this time. Please be advised Office Name: [facility] Urology documented in this encounter [facility] 05-24-2024 Telephone encounter Note Radha from [facility] in [place] called to reschedule the patient's 05/16/[address] Giraldo. Patient is not ambulatory and will be arriving on cot. Appt RS to 06/11/24. [facility] 05-24-2024 Miscellaneous Notes Radha from [facility] in [place] called to reschedule the patient's 05/16/[address] Giraldo. Patient is not ambulatory and will be arriving on cot. Appt RS to 06/11/24. documented in this encounter [facility] 05-03-2023 Telephone encounter Note Noted patient electing to not proceed with MRI abdomen. Two non-specific liver lesions seen on imaging at outside facility 08/2022. MRI recommended for further evaluation/characterization. Patient did not complete any of the additional lab work ordered at GI visit, either. Please send FYI to PCP. Thank you! [facility] 05-03-2023 Miscellaneous Notes Noted patient electing to not proceed with MRI abdomen. Two non-specific liver lesions seen on imaging at outside facility 08/2022. MRI recommended for further evaluation/characterization. Patient did not complete any of the additional lab work ordered at GI visit, either. Please send FYI to PCP. Thank you! Please advise-MRI ordered in December Pt did not wish to have MRI scheduled, pt brother to call back JR documented in this encounter [facility] 04-29-2023 Telephone encounter Note Please advise-MRI ordered in December [facility] 04-29-2023 Telephone encounter Note Pt did not wish to have MRI scheduled, pt brother to call back JR [facility] 12-30-2022 History of Present illness Narrative Images from the original note were not included. [facility] [address] [address] Dept: [phone] Dept Loc: [phone] Visit type: New Reason for Visit: New [...] Subjective HPI Patient is referred by Dr. Gruber, re: fatty liver. Patient resides in [facility]-has been living there since August 2022 [...] Bili 1.40 . 08/28/2022 CT Chest/Abdomen/Pelvis also completed-steatotic liver, concerns for acute steatohepatitis. Two non-specific lesions, one 10 mm and one 18 mm-MRI recommended. EGD completed during admission-no varices. Patient notes fecal incontinence-ongoing since hospitalization in August 2022. Bowels are moving daily to every couple days. Stool consistency is like peanut butter. Denies hematochezia and melena. States he does [...] Normal appearance. HENT: Head: Normocephalic. Ears: Comments: THREE AFFILIATED Eyes: General: No scleral icterus. Cardiovascular: Rate [...] 4 weeks. - If cytology + for casie on esophageal brushings then will need treatment with fluconazole. FINAL DIAGNOSIS A. GASTRIC ANTRUM AND BODY, BIOPSIES: --GASTRIC MUCOSA WITH NO SIGNIFICANT HISTOPATHOLOGICAL ABNORMALITIES. --HELICOBACTER IS NOT IDENTIFIED. Date of Procedure: 09/02/2022 Date Reported: 09/06/2022 Date Received: 09/02/2022 Date of / Sex 1945 (Age: 77) / M Race: WHITE Submitting Physician: MATT PRINCE MD Other External # FINAL CYTOLOGICAL [...] 9:00 AM 12/30/22 documented in this encounter [facility] 12-30-2022 Instructions FRANCHESCA Palmer CNP - 12/30/2022 8:00 AM EDT --Please call office with any questions or concerns! [phone] --Obtain additional lab work for further evaluation of the symptoms. --Schedule MRI liver --Please see handout provided regarding additional recommendations for the symptoms including when to seek emergency care or further treatment. --Follow-up with PCP, and in GI clinic in about 3 months following the above evaluation and recommendations. The following attachments cannot be sent through Care Everywhere.Fecal Incontinence (Moroccan)documented in this encounter [facility] 10-25-2022 History of Present illness Narrative Images from the original note were not included. Barron Giraldo MD 10/25/2022 at 11:38 AM UROLOGY INITIAL OFFICE VISIT PATIENT NAME: Christos Lyons DATE OF : 1945 TODAY'S DATE: 10/25/2022 Chief Complaint: Chief Complaint Patient presents with New Patient Elevated PSA PSA 5.57 HPI Mr. Lyons is a 77 y.o. male who presents with elevated psa. Was in then to rehab due to deconditioning. In wheelchair, still at rehab at [facility] in [place]. He normally lives in [place]. Has psa 5.57 Psa in 2019 9.36 [...] PSA Total BPH with urinary obstruction Christos Lyons is a 77 y.o. male with Elevated psa Bph Fecal incontinence Plan: Has hx elevated psa it was 9 in 2019 but now 5.57 Observe bph for now, void well Repeat psa in 6 mo Follow up in 6 mo Follow up in about 6 months (around 04/26/2023) for psa prior. Barron Giraldo MD 10/25/22 11:38 AM documented in this encounter [facility] 09-04-2022 Note Send Summary: Discharge Summary Providers: Provider RoleProvider Name Yaw nAdrews Andrew PrimaryMark, Matthew Note Recipients: Brian Jean MD Discharge: Summary: [...] Condition at Discharge: Satisfactory Disposition at Discharge: [facility] ([facility]) Vital Signs: T PRBPMAPSpO2 [id number]/6695% Date/Time09/04 8: 8: 8: 8: 8:21 Range(36.2C [...] Surgical Pathology Drawn at 02-Sep-2022 14:40:00 Cytology-Non PSYCH NURSE Drawn at 02-Sep-2022 00:00:00 Venous Full Panel Drawn at 28-Aug-2022 19:12:00 Radiology Results - Pending: None Discharge Instructions: Activity: activity as tolerated. May shower.. Nutrition/Diet: low sodium Fluid Restriction: 1.5L Labs: Lab Test(s): CBC, Comprehensive Metabolic Panel Date To Be Drawn: 09/06/2022 Fax Results To: Dr Maynard, #[phone] Rehab Services: Occupational Therapy Orders: Eval and Treat ([facility]) Physical Therapy Orders: Eval and Treat ([facility]) Care Recommendation: I recommend that INPATIENT care is required at:: Skilled Follow Up Appointments: Follow-Up Appointment 01: Physician/Dept/Service: Dr. Malou Bowen - Pulmonary Scheduled Date/Time: (more content not included)... [facility] 08-29-2022 Note History of Present I llness: HPI: CHRISTOS LYONS is a 77 year old Male with a past medical history of hypertension, hyperlipidemia, anemia, alcohol use disorder, BPH, anxiety, hypothyroidism, gouty arthritis who presented to [facility] complaining of worsening dysphagia to solid foods [...] are negative Objective: Objective Information: T PRBPMAPSpO2 [id number]/6697% Date/Time08/28 23: 23: 23: 23: 23:09 Range(36.2C - 36.2C ) (70 - [...] 2 Hours PRN (more content not included)... [facility] Evaluation note No assessment information [facility] Work Phone: Evaluation note Diagnosis Elevated PSA- Primary Elevated prostate specific antigen (PSA) BPH with urinary obstruction Hypertrophy of prostate with urinary obstruction and other lower urinary tract symptoms (LUTS) documented in this encounter [facility] Health[facility] note* Diagnosis Elevated LFTs- Primary Other abnormal blood chemistry Abnormal CT of liver History of alcohol abuse Nondependent alcohol abuse, in remission Incontinence of feces, unspecified fecal incontinence type documented in this encounter [facility] Health Summary Purpose Family History No Family [...] Directives Records FoundNo Advanced Directives Records Found Chief Complaint and Reason for Visit Chief Complaint LABWORK INTERMEDIATE LABWORK LABWORK LAB WORK LABWORK Chief Complaint LABWORK INTERMEDIATE LABWORK LABWORK LAB WORK LABWORK INTERMEDIATE LABWORK Chief Complaint LABWORK INTERMEDIATE LABWORK INTERMEDIATE LAB WORK INTERMEDIATE LAB WORK INTERMEDIATE LAB WORK Chief Complaint INTERMEDIATE LAB WOR K INTERMEDIATE LAB WORK INTERMEDIATE LAB WORK INTERMEDIATE LABWORK LABWORK Chief Complaint LABWORK LABWORK Chief Complaint LABWORK LABWORK LABWORK Reason for Referral Specialty Diagnoses / Procedures Referred By Christina t Referred To Contact Radiology Diagnoses Elevated LFTs Abnormal CT of liver Procedures MR abdomen w and wo contrast Kalyn Quinonez, WIRE PREPARATION WORKER - WANT AD SUPERVISOR [address] [facility] [address] [place] [id number] Referral ID Status Reason Start Date Expiration Date V isits Requested Visits Authorized [id number] Pending Review 12/30/2022 06/28/2023 1 1 Additional Source Comments (unrecognized sect ion and content) No Status Records FoundNo Status Records FoundNo Status Records FoundNo Status Records FoundNo Status Records Found INFORMATION SOURCE (unrecogn ized section and content) DATE CREATED AUTHOR 02/07/2021 [employer] DATE CREATED AUTHOR AUTHOR'S ORGANIZ ATION 09/07/2022 [facility] DATE CREATED AUTHOR AUTHOR'S ORGANIZ ATION 09/08/2022 [facility] DATE CREATED AUTHOR AUTHOR'S ORGANIZ ATION 06/07/2024 [facility] DATE CREATED AUTHOR AUTHOR'S ORGANIZ ATION 08/30/2024 [facility] Care Teams (unrecognized sec tion and content) Team Status: Inactive Member Role Status Dates Henry REID Attending Provider Active Team Status: Inactive Member Role Status Dates Henry REID Attending Provider, Referring Provid er Active Team Status: Active Member Role Status Dates Henry REID Attending Provider Active Team Status: Active Member Role Status Dates Henry REID Attending Provider, Referring Provid er Active Block [employer] Relationship Specialty Start Date End Date Henry Gruber [address] [place] [address] [address] [place] [address] PCP - General Family Medicine 09/22/22 Barron Giraldo MD [address] [place] [address] Surgeon Urology 10/25/22 Block Cableman Relationship Specialty Start Date End Date Henry Gruber [address] [place] [address] [address] [place] [address] PCP - General Family Medicine 09/22/22 Barron Giraldo MD [address] [facility] [address] [place] [address] Surgeon Urology 10/25/22 Block Cableman Relationship Specialty Start Date End Date Henry Gruber [address] [place] [address] [address] [place] [address] PCP - General Family Medicine 09/22/22 Barron Giraldo MD [address] [place] [address] Surgeon Urology 10/25/22 Block Cableman Relationship Specialty Start Date End Date eHnry Gruber MD [address] [place] [address] [address] [place] [address] PCP - General Family Medicine 09/22/22 Barron Giraldo MD [address] [place] [address] Surgeon Urology 10/25/22 Block Cableman Relationship Specialty Start Date End Date Henry Gruber MD [address] [place] [address] [address] [place] [address] PCP - General Family Medicine 09/22/22 Barron Giraldo MD [address] [place] [address] Surgeon Urology 10/25/22 Goals (unrecognized section and content) Goals may be documented in a n alternate sectionGoals may be documented in an alternate sectionGoals may be documented in an alternate sectionGoals may be documented in an alternate sectionGoals may be documented in an alternate sectionGoals may be documented in an alternate sectionGoals may be documented in an alternate sectionGoals may be documented in an alternate section Reason for Visit (unrecogniz ed section and content) Reason Comments New Patient Elevated PSA PSA 5.5 7 Reason Comments New Patient Fatty liver Specialty Diagnoses / Procedures Referred By Christina t Referred To Contact Gastroenterology Diagnoses GI consult for fatty liver Procedures Consult Henry Gruber [address] [place] [address] [address] [place] [address] [facility] [address] [place] [address] Referral ID Status Reason Start Date Expiration Date V isits Requested Visits Authorized [id number] Pending Review 10/01/2022 10/01/2023 1 1 Reason Onset Date Comments Scheduling 04/29/2023 Reason Onset Date Comments Cancelled Appointment 06/05/2024 FOR RECORDS PERTAINING TO PATIENTS WHO ARE [...] BE BASED ON THE PRIMARY CLINICAL RECORDS. [facility] [employer] [facility]. provides no warranty or guarantee of the accuracy or completeness of information in this document.
[2024-10-26 09:04] LABS: Vitamin D,25 Hydroxy 29.8 ng/mL (30-100)
== END ==
LOC: OLS.ACW100 05:00
PROVIDERS: Visit Provider Family Medicine
DX: E55.9 Vitamin D deficiency, unspecified (principal)
CPT/HCPCS: 36415; 82306

== ENCOUNTER → 2024-11-06 | Outpatient (REF) | payer MEDICARE, MEDICAID, SELFPAY ==
--- OUTSIDE RECORDS SUMMARY | 2024-11-06 04:22 | XMS RPT_ITS | CCD ---
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 Polo Sanchez Admitting Jh Sal, Dr. Maynard Attending UnavailBashir Holman Referring Unavailable Dr. Brian Jean Primary Care Henry Razo Primary Care Provider Barron Giraldo MD Unavailable [phone] Henry Gruber MD Primary Care Provider Barron Giraldo MD Unavailable [phone] Henry Mathis Attending Unavailable Allyn REID, Henry Attending Unavailable Allyn REID, Henry Attending Unavailable Allyn REID, Henry Attending Unavailable Henry Mathis Referring Unavailable Allyn REID, Henry Attending Unavailable Allyn REID, Henry Referring Unavailable Allyn REID, Henry Attending Unavailable Allyn REID, Henry Attending Unavailable Allyn REID, Henry Attending Unavailable Allergies Allergy Classification Reported Allergen(s) Allergy Type Date of Onset Reaction(s) Facility (1 source) Colchicine; Translations: [Colchicine CAPS] Drug Allergy Rash -[facility] Work Phone: (5 sources) [place] Drug Allergy 10-25-2022 Rash [facility] Medications Current Medications Medication Drug [...] EC tablet 10/01/2022 Active polyethylene glycol 3350 [id number] mg powder for oral solution (4 sources) [...] needed Quantity: 30 Refills: 0 Ordered: 20-Apr-2019 dEward Quintana MD Start : 20-Apr-2019 Active Problems Active Problems Problem Classification Problem Date Documented Da te Episodic/Chronic Alcohol-related disorders (1 source) History of alcohol abuse; 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, in remission] 12-30-2022 Chronic Anxiety disorders (1 source) Anxiety; Translations: [Anxiety state, unspecified] Chronic Cancer of bronchus; lung (1 source) Malignant neoplasm of unspecified part of unspecified bronchus or lung; Translations: [Malignant neoplasm of unspecified part of unspecified bronchus or lung] Onset: 07-25-2024 Chronic Congestive heart failure; nonhypertensive (1 source) [...] without urinary obstruction] Onset: 07-25-2024 10-25-2022 Chronic 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; [...] [Full incontinence of feces] 12-30-2022 Episodic Other liver diseases (1 source) Fatty (change of) liver, not elsewhere classified; Translations: [Fatty (change of) liver, not elsewhere classified] Onset: 08-28-2024 Chronic Other non-traumatic joint disorders (2 sources) Pain [...] Translations: [Benign essential hypertension] Resolved: 01-22-2017 Chronic Malaise and fatigue (5 sources) Weakness; Translations: [Other malaise] Onset: 08-29-2022 Episodic Open wounds of extremities (2 sources) Open wound of finger with complication; Translations: [Open wound of finger(s), complicated] Resolved: 09-25-2014 Episodic Other connective tissue disease (2 sources) H/O: gout; Translations: [Personal history of arthritis] Resolved: 10-16-2016 Episodic Other connective tissue disease (1 source) Muscle weakness (generalized); Translations: [Muscle weakness (generalized)] Onset: 07-25-2024 Episodic Other gastrointestinal disorders (1 source) Dysphagia, unspecified; Translations: [Dysphagia, unspecified] Onset: 07-25-2024 Episodic Other nervous system disorders (1 source) Unspecified lack of coordination; Translations: [Unspecified lack of coordination] Onset: 07-25-2024 Episodic Other nervous system disorders (1 source) Other lack of coordination; Translations: [Other lack of coordination] Onset: 04-04-2024 Episodic Other non-traumatic joint disorders (2 sources) [...] Test Name Value Interpretation Reference Range Facility 36on 06-05-2024 36 Name of Caller: [place] [facility] ([employer] [facility]) Contact Reason for Appointment: So called [facility] Pt wanted to cancel his 06/11 appt and does not want to r/s at this time. Please be advised [place] Name[place] [facility] 36on 05-24-2024 36 Radha from [employer] in [place] called to reschedule the patient's 05/16/[address] Giraldo. Patient is not ambulatory and will be arriving on cot. Appt RS to 06/11/24. Normal [facility] Serum or plasma thyroid stim ulating hormone (TSH) measurement (units/volume)Ordered By: Henry Gruber on 06-09-2023 TSH Qn 3.39 uIU/mL 0.358-3.74 [facility] Serum or plasma thyroxine (T 4) measurement (mass/volume)Ordered By: Henry Gruber on 06-09-2023 T4 [Mass/Vol] 8.2 ug/dL 4.5-12.1 [facility] Serum or plasma triiodothyro nine measurement by immunoassay (mass/volume)Ordered By: Henry Gruber on 06-09-2023 T3 IA [Mass/Vol] 1.05 ng/mL 0.6-1.81 [facility] No Panel InformationOrdered By: Henry Gruber on 05-10-2023 Prostate Specific Antigen Screen 4.50 ng/mL 0.00-4.00 [facility] Comment on above: This test was perfor med using the TPSA assay method for [employer] chemistry system. Values obtained with differentassay methods cannot be used interchangably.When changing PSA assays in the course of monitoring apatient, additional sequential testing should be carriedout to confirm baseline values. Laboratory - Chemistry and C hemistry - challengeOrdered By: Henry Gruber on 03-11-2023 T4 [Mass/Vol] 8.9 ug/dL 4.5-12.1 [facility] No Panel InformationOrdered By: Henry Gruber on 03-11-2023 Thyroid Stimulating Hormone (TSH) 3.55 uIU/mL 0.358-3.74 [facility] Total Triiodothyronine 1.11 ng/mL 0.6-1.81 [facility] Basophil percentageOrdered B y: Henry Gruber on 01-17-2023 Chloride [Moles/Vol] 102 mmol/L 98-107 [facility] Glucose [Mass/Vol] 108 mg/dL 74-106 [facility] Comment on above: Fasting Glucose resu lt from 100 to 125 mg/dL suggests IMPAIRED HOMEOSTASIS per A.D.A. criteria. Potassium [Moles/Vol] 3.9 mmol/L 3.5-5.1 [facility] Sodium [Moles/Vol] 136 mmol/L 136-145 [facility] Laboratory - Chemistry and C hemistry - challengeOrdered By: Henry Gruber on 01-17-2023 CO2 [Moles/Vol] 29.0 mmol/L 21.0-32.0 [facility] Urea nitrogen/Creatinine [Mass ratio] 10.0 mg/mg 10-20 [facility] No Panel InformationOrdered By: Henry Gruber on 01-17-2023 Estimated GFR (MDRD) Amer 168 mL/min >60 [facility] Comment on above: GFR Calc Estimated GFR (MDRD) Non-Af Amer 139 mL/min >60 [facility] Comment on above: Non- GFR Calc Serum or plasma calcium bell urement (mass/volume)Ordered By: eHnry Gruber on 01-17-2023 Calcium [Mass/Vol] 8.9 mg/dL 8.5-10.1 [facility] Serum or plasma creatinine m easurement (mass/volume)Ordered By: Henry Gruber on 01-17-2023 Creatinine [Mass/Vol] 0.60 mg/dL 0.70-1.30 [facility] Comment on above: The validity of the calculated GFR & GFRAA in patients over 70 years has not been determined. Clinical correlation is essential. Serum or plasma urea nitroge n measurement (mass/volume)Ordered By: Henry Gruber on 01-17-2023 Urea nitrogen [Mass/Vol] 6 mg/dL 7-18 [facility] Serum or plasma uric acid me asurement (mass/volume)Ordered By: Henry Gruber on 01-17-2023 Urate [Mass/Vol] 4.1 mg/dL 3.5-7.2 [facility] Comment on above: The drugs N-Acetylcy steine and Metamizole may falsely depress this assay. Thin prep Papanicolaou smear with manual screeningOrdered By: Henry Gruber on 01-17-2023 Thin prep Papanicolaou smear with manual screening 5 5-15 [facility] Basophil percentageOrdered B y: Henry Gruber on 01-13-2023 Chloride [Moles/Vol] 106 mmol/L 98-107 [facility] Glucose [Mass/Vol] 120 mg/dL 74-106 [facility] Comment on above: Fasting Glucose resu lt from 100 to 125 mg/dL suggests IMPAIRED HOMEOSTASIS per A.D.A. criteria. Potassium [Moles/Vol] 3.7 mmol/L 3.5-5.1 [facility] Sodium [Moles/Vol] 139 mmol/L 136-145 [facility] Laboratory - Chemistry and C hemistry - challengeOrdered By: Henry Gruber on 01-13-2023 CO2 [Moles/Vol] 27.0 mmol/L 21.0-32.0 [facility] Urea nitrogen/Creatinine [Mass ratio] 12.2 mg/mg 10-20 [facility] No Panel InformationOrdered By: Henry Gruber on 01-13-2023 Estimated GFR (MDRD) Amer 211 mL/min >60 [facility] Comment on above: GFR Calc Estimated GFR (MDRD) Non-Af Amer 174 mL/min >60 [facility] Comment on above: Non- GFR Calc Serum or plasma calcium bell urement (mass/volume)Ordered By: Henry Gruber on 01-13-2023 Calcium [Mass/Vol] 8.5 mg/dL 8.5-10.1 [facility] Serum or plasma creatinine m easurement (mass/volume)Ordered By: Henry Gruber on 01-13-2023 Creatinine [Mass/Vol] 0.49 mg/dL 0.70-1.30 [facility] Comment on above: The validity of the calculated GFR & GFRAA in patients over 70 years has not been determined. Clinical correlation is essential. Serum or plasma urea nitroge n measurement (mass/volume)Ordered By: Henry Gruber on 01-13-2023 Urea nitrogen [Mass/Vol] 6 mg/dL 7-18 [facility] Thin prep Papanicolaou smear with manual screeningOrdered By: Henry Gruber on 01-13-2023 Thin prep Papanicolaou smear with manual screening 6 5-15 [facility] No Panel InformationOrdered By: Henry Gruber on 01-05-2023 Stool Pancreatic Elastase 440 >200 [facility] Comment on above: Result Units: ug Fernanda st./g Severe Pancreatic Insufficiency: <100 Moderate Pancreatic Insufficiency: 100 - 200 Normal: >200Performed at: [facility] [address] [id number] Director: Terra Velazquez MD, Phone: [phone] Basophil percentageOrdered B y: Henry Gruber on 01-03-2023 Bilirubin [Mass/Vol] 0.40 mg/dL 0.20-1.00 [facility] Comment on above: For patients on eltr ombopag therapy, use of Dimension [place] TBIL is not recommended. Chloride [Moles/Vol] 105 mmol/L 98-107 [facility] Glucose [Mass/Vol] 177 mg/dL 74-106 [facility] Comment on above: Fasting Glucose resu lt greater than or equal to 126 mg/dL suggests DIABETES MELLITUS per A.D.A. criteria. Potassium [Moles/Vol] 3.4 mmol/L 3.5-5.1 [facility] Protein [Mass/Vol] 6.3 g/dL 6.4-8.2 [facility] Sodium [Moles/Vol] 139 mmol/L 136-145 [facility] WBC (Bld) [#/Vol] 7.5 10*3/uL 4.4-11.0 [facility] Blood erythrocytes count (nu mber/volume)Ordered By: Henry Gruber on 01-03-2023 RBC (Bld) [#/Vol] 3.56 10*6/uL 4.6-6.2 [facility] Blood hemoglobin measurement (mass/volume)Ordered By: Henry Gruber on 01-03-2023 Hemoglobin (Bld) [Mass/Vol] 11.0 g/dL 13.0-16.5 [facility] Blood platelet mean volumeOr dered By: Henry Gruber on 01-03-2023 Platelet mean volume (Bld) [Entitic vol] 10.8 fL 6.2-12.0 [facility] Determination of erythrocyte mean corpuscular volume (MCV)Ordered By: Henry Gruber on 01-03-2023 MCV (RBC) [Entitic vol] 96.3 fL 80-94 [facility] Hematocrit Auto (Bld) [Volum e fraction]Ordered By: Henry Gruber on 01-03-2023 Hematocrit (Bld) [Volume fraction] 34.3 % 40-54 [facility] INR in Blood by Coagulation assayOrdered By: Henry Gruber on 01-03-2023 INR Coag (Bld) [Relative time] 1.0 {INR} [facility] Iron measurement (mass/mass) Ordered By: Henry Gruber on 01-03-2023 Iron (Unsp spec) [Mass/Mass] 46 ug/dL 65-175 [facility] Laboratory - Chemistry and C hemistry - challengeOrdered By: Henry Gruber on 01-03-2023 ALP [Catalytic activity/Vol] 173 U/L 45-117 [facility] ALT [Catalytic activity/Vol] 37 U/L 16-61 [facility] CO2 [Moles/Vol] 28.0 mmol/L 21.0-32.0 [facility] Globulin (S) [Mass/Vol] 3.7 g/dL 2.2-4.2 [facility] Urea nitrogen/Creatinine [Mass ratio] 13.2 mg/mg 10-20 [facility] Laboratory - CoagulationOrde red By: Henry Gruber on 01-03-2023 PT Coag (PPP) [Time] 13.5 s 11.7-14.9 [facility] Laboratory - Hematology and Cell countsOrdered By: Henry Gruber on 01-03-2023 Erythrocyte distribution width (RBC) [Entitic vol] 51.2 fL 35.1-43.9 [facility] Erythrocyte distribution width (RBC) [Ratio] 14.5 % 11.6-14.6 [facility] MCH (RBC) [Entitic mass] 30.9 pg 27.0-32.0 [facility] MCHC Auto (RBC) [Mass/Vol]Or dered By: Henry Gruber on 01-03-2023 MCHC (RBC) [Mass/Vol] 32.1 g/dL 32-36 [facility] No Panel InformationOrdered By: Henry Gruber on 01-03-2023 Anti-Nuclear Antibody Screen Negative Negative [facility] Comment on above: Performed at: [facility] [email or web address] [address] [id number] Director: Ishmael De Los Santos PhD, Phone: [phone] Estimated GFR (MDRD) Amer 165 mL/min >60 [facility] Comment on above: GFR Calc Estimated GFR (MDRD) Non-Af Amer 137 mL/min >60 [facility] Comment on above: Non- GFR Calc Hepatitis A IgM Antibody Negative Negative [facility] Hepatitis B Core IgM Antibody Negative Negative [facility] Hepatitis C Antibody (EIA) Non-Reactive Non Reactive [facility] Hepatitis C Antibody Comment Comment . [facility] Comment on above: Not infected with HC V unless early or acute infection issuspected (which may be delayed in an immunocompromisedindividual), or other evidence exists to indicate HCVinfection. Miscellaneous Test See comment [facility] Comment on above: TEST RESULTS LIMITSL iver-Kidney Microsomal Ab <1.0 Units 0.0- 20.0 Negative 0.0 - 20.0 Equivocal 20.1 - 24.9 Positive >24.9 LKM type 1 antibodies are detected in patients with autoimmune hepatitis type 2 and in up to 8% of patients with chronic HCV infection. TESTING PERFORMED AT [facility]. ORIGINAL REPORT ON FILE IN LAB CONTAINS ADDITIONAL TEST SITE INFORMATION. ____ Total Iron Binding Capacity 202 ug/dL 250-450 [facility] Platelets bldOrdered By: Pedro Gruber on 01-03-2023 Platelets (Bld) [#/Vol] 324 10*3/uL 150-450 [facility] Serum mitochondria antibody detectionOrdered By: Henry Gruber on 01-03-2023 Mitochondria Ab Ql (S) <20.0 Units 0.0-20.0 [facility] Comment on above: Negative 0.0 - 20.0 Equivocal 20.1 - 24.9 Positive >24.9Mitochondrial (M2) Antibodies are found in 90-96% ofpatients with primary biliary cirrhosis. Serum or plasma actin IgG an tibody assay (units/volume)Ordered By: Henry Gruber on 01-03-2023 Actin IgG Qn 11 Units 0-19 [facility] Comment on above: Negative 0 - 19 Weak positive 20 - 30 Moderate to strong positive >30 Actin Antibodies are found in 52-85% of patients with autoimmune hepatitis or chronic active hepatitis and in 22% of patients with primary biliary cirrhosis.Performed at: [facility] [id number] Director: Ishmael De Los Santos PhD, Phone: [phone] Serum or plasma albumin bell urement (mass/volume)Ordered By: Henry Gruber on 01-03-2023 Albumin [Mass/Vol] 2.6 g/dL 3.2-5.0 [facility] Serum or plasma albumin/glob ulin mass ratioOrdered By: Henry Gruber on 01-03-2023 Albumin/Globulin [Mass ratio] 0.7 {ratio} 0.9-2.4 [facility] Serum or plasma calcium bell urement (mass/volume)Ordered By: Henry Gruber on 01-03-2023 Calcium [Mass/Vol] 8.6 mg/dL 8.5-10.1 [facility] Serum or plasma creatinine m easurement (mass/volume)Ordered By: Henry Gruber on 01-03-2023 Creatinine [Mass/Vol] 0.61 mg/dL 0.70-1.30 [facility] Comment on above: The validity of the calculated GFR & GFRAA in patients over 70 years has not been determined. Clinical correlation is essential. Serum or plasma ferritin allie surement (mass/volume)Ordered By: Henry Gruber on 01-03-2023 Ferritin [Mass/Vol] 246 ng/mL 26-388 [facility] Serum or plasma hepatitis B virus surface antigen detection by immunoassayOrdered By: Henry Gruber on 01-03-2023 HBV surface Ag IA Ql Negative Negative [facility] Serum or plasma iron saturat ion measurement (mass fraction)Ordered By: Henry Gruber on 01-03-2023 Iron saturation [Mass fraction] 22.8 % 15.0-55.0 [facility] Serum or plasma urea nitroge n measurement (mass/volume)Ordered By: Henry Gruber on 01-03-2023 Urea nitrogen [Mass/Vol] 8 mg/dL 7-18 [facility] Thin prep Papanicolaou smear with manual screeningOrdered By: Henry Gruber on 01-03-2023 Thin prep Papanicolaou smear with manual screening 44 U/L 15-37 [facility] Thin prep Papanicolaou smear with manual screening 6 -15 [facility] No Panel InformationOrdered By: Henry Gruber on 10-18-2022 Thyroid Stimulating Hormone (TSH) 12.70 uIU/mL 0.358-3.74 [facility] Vitamin D 25-Hydroxy 46.4 ng/mL [facility] Comment on above: Vitamin D 25(OH) Sta tus Range Deficiency <20 ng/mL (50nmol/L) Insufficiency 20 - 30 ng/mL (50 - 75 nmol/L) Sufficiency 30 - 100 ng/mL (75 - 250 nmol/L) Toxicity >100 ng/mL (>250 nmol/L) Bacteria identified Cx Nom ( Wound)Ordered By: Henry Gruber on 10-03-2022 Wound Culture Proteus mirabilis [facility] Bacteria identified Cx Nom ( Wound)Ordered By: Henry Gruber on 10-01-2022 Wound Culture Proteus mirabilis [facility] Gram stain for investigation of transfusion reactionOrdered By: Henry Gruber on 10-01-2022 Microscopic observation Gram stain Nom (Unsp spec) [facility] Basophil percentageOrdered B y: Henry Gruber on 09-20-2022 Chloride [Moles/Vol] 98 mmol/L 98-107 [facility] Glucose [Mass/Vol] 92 mg/dL 74-106 [facility] Potassium [Moles/Vol] 3.6 mmol/L 3.5-5.1 [facility] Sodium [Moles/Vol] 134 mmol/L 136-145 [facility] Laboratory - Chemistry and C hemistry - challengeOrdered By: Henry Gruber on 09-20-2022 CO2 [Moles/Vol] 31.0 mmol/L 21.0-32.0 [facility] Urea nitrogen/Creatinine [Mass ratio] 20.3 mg/mg 10- [facility] No Panel InformationOrdered By: Henry Gruber on 09-20-2022 Estimated GFR (MDRD) Amer 272 mL/min >60 [facility] Comment on above: GFR Calc Estimated GFR (MDRD) Non-Af Amer 225 mL/min >60 [facility] Comment on above: Non- GFR Calc Prostate Specific Antigen Screen 5.57 ng/mL 0.00-4.00 [facility] Comment on above: This test was perfor med using the TPSA assay method for [employer] chemistry system. Values obtained with differentassay methods cannot be used interchangably.When changing PSA assays in the course of monitoring apatient, additional sequential testing should be carriedout to confirm baseline values. Serum or plasma calcium bell urement (mass/volume)Ordered By: Henry Gruber on 09-20-2022 Calcium [Mass/Vol] 8.5 mg/dL 8.5-10.1 [facility] Serum or plasma creatinine m easurement (mass/volume)Ordered By: Henry Gruber on 09-20-2022 Creatinine [Mass/Vol] 0.39 mg/dL 0.70-1.30 [facility] Comment on above: The validity of the calculated GFR & GFRAA in patients over 70 years has not been determined. Clinical correlation is essential. Serum or plasma urea nitroge n measurement (mass/volume)Ordered By: Henry Gruber on 09-20-2022 Urea nitrogen [Mass/Vol] 8 mg/dL 7-18 [facility] Thin prep Papanicolaou smear with manual screeningOrdered By: Henry Gruber on 09-20-2022 Thin prep Papanicolaou smear with manual screening 09 10-15 [facility] Basophil percentageOrdered B y: Henry Gruber on 09-15-2022 Chloride [Moles/Vol] 93 mmol/L 98-107 [facility] Glucose [Mass/Vol] 95 mg/dL 74-106 [facility] Potassium [Moles/Vol] 3.0 mmol/L 3.5-5.1 [facility] Sodium [Moles/Vol] 132 mmol/L 136-145 [facility] Laboratory - Chemistry and C hemistry - challengeOrdered By: Henry Gruber on 09-15-2022 CO2 [Moles/Vol] 33.0 mmol/L 21.0-32.0 [facility] Urea nitrogen/Creatinine [Mass ratio] 16.6 mg/mg 10-20 [facility] No Panel InformationOrdered By: Henry Gruber on 09-15-2022 Estimated GFR (MDRD) Amer 252 mL/min >60 [facility] Comment on above: GFR Calc Estimated GFR (MDRD) Non-Af Amer 208 mL/min >60 [facility] Comment on above: Non- GFR Calc Serum or plasma calcium bell urement (mass/volume)Ordered By: Henry Gruber on 09-15-2022 Calcium [Mass/Vol] 8.6 mg/dL 8.5-10.1 [facility] Serum or plasma creatinine m easurement (mass/volume)Ordered By: Henry Gruber on 09-15-2022 Creatinine [Mass/Vol] 0.42 mg/dL 0.70-1.30 [facility] Comment on above: The validity of the calculated GFR & GFRAA in patients over 70 years has not been determined. Clinical correlation is essential. Serum or plasma urea nitroge n measurement (mass/volume)Ordered By: Henry Gruber on 09-15-2022 Urea nitrogen [Mass/Vol] 7 mg/dL 7-18 [facility] Thin prep Papanicolaou smear with manual screeningOrdered By: Henry Gruber on 09-15-2022 Thin prep Papanicolaou smear with manual screening 6 5-15 [facility] Basophil percentageOrdered B y: Henry Gruber on 09-13-2022 Chloride [Moles/Vol] 92 mmol/L 98-107 [facility] Glucose [Mass/Vol] 92 mg/dL 74-106 [facility] Potassium [Moles/Vol] 3.0 mmol/L 3.5-5.1 [facility] Sodium [Moles/Vol] 131 mmol/L 136-145 [facility] WBC (Bld) [#/Vol] 9.6 10*3/uL 4.4-11.0 [facility] Blood erythrocytes count (nu mber/volume)Ordered By: Henry Gruber on 09-13-2022 RBC (Bld) [#/Vol] 2.88 10*6/uL 4.6-6.2 [facility] Blood hemoglobin measurement (mass/volume)Ordered By: Henry Gruber on 09-13-2022 Hemoglobin (Bld) [Mass/Vol] 10.0 g/dL 13.0-16.5 [facility] Blood platelet mean volumeOr dered By: Henry Gruber on 09-13-2022 Platelet mean volume (Bld) [Entitic vol] 10.5 fL 6.2-12.0 [facility] Determination of erythrocyte mean corpuscular volume (MCV)Ordered By: Henry Gruber on 09-13-2022 MCV (RBC) [Entitic vol] 103.1 fL 80-94 [facility] Hematocrit Auto (Bld) [Volum e fraction]Ordered By: Henry Gruber on 09-13-2022 Hematocrit (Bld) [Volume fraction] 29.7 % 40-54 [facility] Laboratory - Chemistry and C hemistry - challengeOrdered By: Henry Gruber on 09-13-2022 CO2 [Moles/Vol] 32.0 mmol/L 21.0-32.0 [facility] [facility] Urea nitrogen/Creatinine [Mass ratio] 23.9 mg/mg 10-20 [facility] Laboratory - Hematology and Cell countsOrdered By: Henry Gruber on 09-13-2022 Erythrocyte distribution width (RBC) [Entitic vol] 57.1 fL 35.1-43.9 [facility] Erythrocyte distribution width (RBC) [Ratio] 15.3 % 11.6-14.6 [facility] MCH (RBC) [Entitic mass] 34.7 pg 27.0-32.0 [facility] MCHC Auto (RBC) [Mass/Vol]Or dered By: Henry Gruber on 09-13-2022 MCHC (RBC) [Mass/Vol] 33.7 g/dL 32-36 [facility] No Panel InformationOrdered By: Henry Gruber on 09-13-2022 Estimated GFR (MDRD) Amer 286 mL/min >60 [facility] Comment on above: GFR Calc Estimated GFR (MDRD) Non-Af Amer 237 mL/min >60 [facility] Comment on above: Non- GFR Calc Platelets bldOrdered By: Pedro Gruber on 09-13-2022 Platelets (Bld) [#/Vol] 327 10*3/uL 150-450 [facility] Serum or plasma calcium bell urement (mass/volume)Ordered By: Henry Gruber on 09-13-2022 Calcium [Mass/Vol] 8.6 mg/dL 8.5-10.1 [facility] Serum or plasma creatinine m easurement (mass/volume)Ordered By: Henry Gruber on 09-13-2022 Creatinine [Mass/Vol] 0.38 mg/dL 0.70-1.30 [facility] Comment on above: The validity of the calculated GFR & GFRAA in patients over 70 years has not been determined. Clinical correlation is essential. Serum or plasma urea nitroge n measurement (mass/volume)Ordered By: Henry Gurber on 09-13-2022 Urea nitrogen [Mass/Vol] 9 mg/dL - [facility] Thin prep Papanicolaou smear with manual screeningOrdered By: Henry Gruber on 09-13-2022 Thin prep Papanicolaou smear with manual screening 7 - [facility] Basophil percentageOrdered B y: Henry Gruber on 09-06-2022 Bilirubin [Mass/Vol] 1.40 mg/dL 0.20-1.00 [facility] Comment on above: For patients on eltr ombopag therapy, use of Dimension [place] TBIL is not recommended. Chloride [Moles/Vol] 87 mmol/L 98-107 [facility] Cholesterol [Mass/Vol] 121 mg/dL <200 [facility] Comment on above: <200 mg/dL Desirable 200-240 mg/dL Borderline >240 mg/dL High Risk Glucose [Mass/Vol] 115 mg/dL 74-106 [facility] Comment on above: Fasting Glucose resu lt from 100 to 125 mg/dL suggests IMPAIRED HOMEOSTASIS per A.D.A. criteria. Potassium [Moles/Vol] 3.1 mmol/L 3.5-5.1 [facility] Protein [Mass/Vol] 6.2 g/dL 6.4-8.2 [facility] Sodium [Moles/Vol] 122 mmol/L 136-145 [facility] Triglyceride [Mass/Vol] 130 mg/dL <199 [facility] Comment on above: The drugs N-Acetylcy steine and Metamizole may falsely depress this assay.Serum Triglycerides Reference Interval Normal <150 mg/dL Borderline high 150 - 199 mg/dL High 200 - 499 mg/dL Very High > or = 500 mg/dL WBC (Bld) [#/Vol] 11.2 10*3/uL 4.4-11.0 [facility] Blood erythrocytes count (nu mber/volume)Ordered By: Henry Gruber on 09-06-2022 RBC (Bld) [#/Vol] 2.83 10*6/uL 4.6-6.2 [facility] Blood hemoglobin measurement (mass/volume)Ordered By: Henry Gruber on 09-06-2022 Hemoglobin (Bld) [Mass/Vol] 10.1 g/dL 13.0-16.5 [facility] Blood platelet mean volumeOr dered By: Henry Gruber on 09-06-2022 Platelet mean volume (Bld) [Entitic vol] 10.9 fL 6.2-12.0 [facility] Determination of erythrocyte mean corpuscular volume (MCV)Ordered By: Henry Gruber on 09-06-2022 MCV (RBC) [Entitic vol] 101.4 fL 80-94 [facility] Hematocrit Auto (Bld) [Volum e fraction]Ordered By: Henry Gruber on 09-06-2022 Hematocrit (Bld) [Volume fraction] 28.7 % 40-54 [facility] Laboratory - Chemistry and C hemistry - challengeOrdered By: Henry Gruber on 09-06-2022 ALP [Catalytic activity/Vol] 328 U/L 45-117 [facility] ALT [Catalytic activity/Vol] 92 U/L 16-61 [facility] CO2 [Moles/Vol] 27.0 mmol/L 21.0-32.0 [facility] Globulin (S) [Mass/Vol] 3.5 g/dL 2.2-4.2 [facility] Urea nitrogen/Creatinine [Mass ratio] 17.1 mg/mg 10-20 [facility] Laboratory - Hematology and Cell countsOrdered By: Henry Gruber on 09-06-2022 Erythrocyte distribution width (RBC) [Entitic vol] 57.7 fL 35.1-43.9 [facility] Erythrocyte distribution width (RBC) [Ratio] 15.6 % 11.6-14.6 [facility] MCH (RBC) [Entitic mass] 35.7 pg 27.0-32.0 [facility] MCHC Auto (RBC) [Mass/Vol]Or dered By: Henry Gruber on 09-06-2022 MCHC (RBC) [Mass/Vol] 35.2 g/dL 32-36 [facility] No Panel InformationOrdered By: Henry rGuber on 09-06-2022 Estimated GFR (MDRD) Amer 260 mL/min >60 [facility] Comment on above: GFR Calc Estimated GFR (MDRD) Non-Af Amer 215 mL/min >60 [facility] Comment on above: Non- GFR Calc Thyroid Stimulating Hormone (TSH) 10.20 uIU/mL 0.358-3.74 [facility] Vitamin D 25-Hydroxy 15.9 ng/mL [facility] Comment on above: Vitamin D 25(OH) Sta tus Range Deficiency <20 ng/mL (50nmol/L) Insufficiency 20 - 30 ng/mL (50 - 75 nmol/L) Sufficiency 30 - 100 ng/mL (75 - 250 nmol/L) Toxicity >100 ng/mL (>250 nmol/L) Platelets bldOrdered By: Pedro Gruber on 09-06-2022 Platelets (Bld) [#/Vol] 372 10*3/uL 150-450 [facility] Serum or plasma albumin bell urement (mass/volume)Ordered By: Henry Gruber on 09-06-2022 Albumin [Mass/Vol] 2.7 g/dL 3.2-5.0 [facility] Serum or plasma albumin/glob ulin mass ratioOrdered By: Henry Gruber on 09-06-2022 Albumin/Globulin [Mass ratio] 0.8 {ratio} 0.9-2.4 [facility] Serum or plasma calcium bell urement (mass/volume)Ordered By: Henry Gruber on 09-06-2022 Calcium [Mass/Vol] 8.3 mg/dL 8.5-10.1 [facility] Serum or plasma cholesterol in HDL measurement (mass/volume)Ordered By: Henry Gruber on 09-06-2022 Cholesterol in HDL [Mass/Vol] 39 mg/dL >40 [facility] Comment on above: The drugs N-Acetylcy steine and Metamizole may falsely depress this assay. Reference Range HDL <40 mg/dL Low HDL Cholesterol HDL >or= 60 mg/dL High HDL Cholesterol Serum or plasma cholesterol in VLDL measurement (mass/volume)Ordered By: Henry Gruber on 09-06-2022 Cholesterol in VLDL [Mass/Vol] 26 mg/dL 5-40 [facility] Serum or plasma creatinine m easurement (mass/volume)Ordered By: Henry Gruber on 09-06-2022 Creatinine [Mass/Vol] 0.41 mg/dL 0.70-1.30 [facility] Comment on above: The validity of the calculated GFR & GFRAA in patients over 70 years has not been determined. Clinical correlation is essential. Serum or plasma low density lipoprotein (LDL) cholesterol measurement (mass/volume)Ordered By: Henry Gruber on 09-06-2022 Cholesterol in LDL [Mass/Vol] 56 mg/dL 0-130 [facility] Serum or plasma urea nitroge n measurement (mass/volume)Ordered By: Henry Gruber on 09-06-2022 Urea nitrogen [Mass/Vol] 7 mg/dL 7-18 [facility] Thin prep Papanicolaou smear with manual screeningOrdered By: Henry Gruber on 09-06-2022 Thin prep Papanicolaou smear with manual screening 193 U/L 15-37 [facility] Thin prep Papanicolaou smear with manual screening 8 5-15 [facility] Whole blood hemoglobin A1c/t otal hemoglobin ratio (mass fraction)Ordered By: Henry Gruber on 09-06-2022 HbA1c (Bld) [Mass fraction] 5.9 % 3.8-5.6 [facility] Comment on above: Normal < 5.7 % Predi abetic 5.7 - 6.4 % Diabetic >or= 6.5 % Please note range changes. GLUCOSE-POCTon 09-04-2022 Glucose [Mass/Vol] 115 mg/dL High 74 - 99 [facility] Comment on above: Performed By: #### R ENAL #### [facility] [address] [place] [address] Glucose [Mass/Vol] 138 mg/dL High 74 - 99 [facility] Comment on above: Performed By: #### G ZOHREH #### [facility] [address] [place] [address] Laboratory - Chemistry and C hemistry - challengeon 09-04-2022 Glucose [Mass/Vol] 115 mg/dL above high threshold 74 - 99 [facility] Work Phone: Glucose [Mass/Vol] 138 mg/dL above high threshold 74 - 99 [facility] Work Phone: Order Reconciliationon 09-04 Order Reconciliation [...] Reconc (more content not included)... Normal [facility] RENAL FUNCTION PANELon 09-04 Albumin [Mass/Vol] 3.4 g/dL Normal 3.4 - 5.0 [facility] Comment on above: Performed By: #### M G #### [facility] [address] [place] [address] Anion gap [Moles/Vol] 10 mmol/L Normal 10 - 20 [facility] Comment on above: Performed By: #### M G #### [facility] [address] [place] [address] Calcium [Mass/Vol] 8.0 mg/dL Low 8.6 - 10.3 [facility] Comment on above: Performed By: #### M G #### [facility] [address] [place] [address] Chloride [Moles/Vol] 90 mmol/L Low 98 - 107 [facility] Comment on above: Performed By: #### M G #### [facility] [address] [place] [address] Creatinine [Mass/Vol] 0.43 mg/dL Low 0.50 - 1.30 [facility] Comment on above: Performed By: #### M G #### [facility] [address] [place] [address] eGFR MALE >90 Normal >90 [facility] Comment on above: Result Comment: CALC ULATIONS OF ESTIMATED GFR ARE PERFORMED USING THE 2020 CKD-EPI STUDY REFIT EQUATION WITHOUT THE RACE VARIABLE FOR THE IDMS-TRACEABLE CREATININE METHODS. https://jasn.asnjournals.org/content/early//ASN.6744889 988 Performed By: #### M G #### [facility] [address] [place] [address] Glucose [Mass/Vol] 110 mg/dL High 74 - 99 [facility] Comment on above: Performed By: #### M G #### [facility] [address] [place] [address] HCO3 (Bld) [Moles/Vol] 32 mmol/L Normal 21 - 32 [facility] Comment on above: Performed By: #### M G #### [facility] [address] [place] [address] Phosphate [Mass/Vol] 2.2 mg/dL Low 2.5 - 4.9 [facility] Comment on above: Result Comment: The performance characteristics of phosphorus testing in heparinized plasma have been validated by the individual laboratory site where testing is performed. Testing on heparinized plasma is not approved by the FDA; however, such approval is not necessary. Performed By: #### M G #### [facility] [address] [place] [address] Potassium [Moles/Vol] 3.6 mmol/L Normal 3.5 - 5.3 [facility] Comment on above: Performed By: #### M G #### [facility] [address] [place] [address] Sodium [Moles/Vol] 128 mmol/L Low 136 - 145 [facility] Comment on above: Performed By: #### M G #### [facility] [address] [place] [address] Urea nitrogen [Mass/Vol] 7 mg/dL Normal 6 - 23 [facility] Comment on above: Performed By: #### M G #### [facility] [address] [place] [address] Renal Function Panelon 09-04 Albumin BCP dye [Mass/Vol] 3.4 g/dL 3.4 - 5.0 -[facility] Work Phone: Anion gap [Moles/Vol] 10 mmol/L 10 - 20 -[facility] Work Phone: Calcium [Mass/Vol] 8.0 mg/dL below low threshold 8.6 - 10.3 -[facility] Work Phone: Chloride [Moles/Vol] 90 mmol/L below low threshold 98 - 107 -[facility] Work Phone: CO2 [Moles/Vol] 32 mmol/L 21 - 32 -[facility] Work Phone: Creatinine [Mass/Vol] 0.43 mg/dL below low threshold See Below -[facility] Work Phone: Comment on above: Reference Range: 0.5 0 - 1.30 Glucose [Mass/Vol] 110 mg/dL above high threshold 74 - 99 -[facility] Work Phone: Phosphate [Mass/Vol] 2.2 mg/dL below low threshold 2.5 - 4.9 [facility] Work Phone: Comment on above: The performance fransisca acteristics of phosphorus testing in heparinized plasma have been validated by the individual laboratory site where testing is performed. Testing on heparinized plasma is not approved by the FDA; however, such approval is not necessary. Potassium [Moles/Vol] 3.6 mmol/L 3.5 - 5.3 [facility] Work Phone: Sodium [Moles/Vol] 128 mmol/L below low threshold 136 - 145 [facility] Work Phone: Urea nitrogen [Mass/Vol] 7 mg/dL 6 - 23 [facility] Work Phone: Renal Function Panel >90 >90 [facility] Work Phone: Comment on above: CALCULATIONS OF ROSANA MATED GFR ARE PERFORMED USING THE 2020 CKD-EPI STUDY REFIT EQUATION WITHOUT THE RACE VARIABLE FOR THE IDMS-TRACEABLE CREATININE METHODS.https://jasn.asnjournals.org/content//ASN .8378382383 CBCon 09-03-2022 Erythrocyte distribution width (RBC) [Ratio] 15.3 % High 11.5 - 14.5 [facility] Comment on above: Performed By: #### M G #### [facility] [address] [place] [address] Hematocrit (Bld) [Volume fraction] 29.0 % Low 41.0 - 52.0 [facility] Comment on above: Performed By: #### M G #### [facility] [address] [place] [address] Hemoglobin (Bld) [Mass/Vol] 10.1 g/dL Low 13.5 - 17.5 [facility] Comment on above: Performed By: #### M G #### [facility] [address] [place] [address] MCHC (RBC) [Mass/Vol] 34.8 g/dL Normal 32.0 - 36.0 [facility] Comment on above: Performed By: #### M G #### [facility] [address] [place] [address] MCV (RBC) [Entitic vol] 102 fL High 80 - 100 [facility] Comment on above: Performed By: #### M G #### [facility] [address] [place] [address] NUCLEATED RBC 0.2 /100 WBC Normal 0.0-0.0 [facility] Comment on above: Performed By: #### M G #### [facility] [address] [place] [address] Platelets (Bld) [#/Vol] 245 10*3/uL Normal 150 - 450 [facility] Comment on above: Performed By: #### M G #### [facility] [address] [place] [address] RBC 2.85 x10E12/L Low 4.50 - 5.90 [facility] Comment on above: Performed By: #### M G #### [facility] [address] [place] [address] WBC (Bld) [#/Vol] 9.0 10*3/uL Normal 4.4 - 11.3 [facility] Comment on above: Performed By: #### M G #### [facility] [address] [place] [address] Consult-Cardiac Surgeryon Consult-Cardiac Surgery Service: Service: Cardiac [...] Known Allergies: Objective: Objective Information: T PRBPMAPSpO2 [id number]/7295% Date/Time09/03 12: 12: 12: 12: 12:38 Range(36.1C [...] hyperten (more content not included)... Normal [facility] Daily Progress Note-Medicine on 09-03-2022 Daily Progress Note-Medicine Service: Medicine Subjective Data: CHRISTOS LYONS is a 77 year old Male who is Hospital Day # 7. On room air, feels better, tolerating PO intake, brother bedside, afebrile, no overnight events reported. Objective Data: Objective Information: T PRBPMAPSpO2 Value36.06100001/6695% Date/Time09/03 8: 8: 8: 8: 8:44 Range(36.1C - 36.8C ) (68 - 89 ) (16 - 18 ) (102 - 141 )/ (63 - 83 ) (92% - 100% ) Pain reported at 09/02 21:34: 0 = None ---- Intake and Output ----- Mn/Dy/Year TimeIntakeOutputNet Sep 02, 2022 2:00 [id number] The Intake and Output Totals for the last 24 hours are: IntakeOutputNet [id number] Physical Exam by System: Constitutional: no acute [...] 03-Sep-2022 09:56 by Caesar Sal) Normal [facility] Daily Progress Note-Nephrolo gyon 09-03-2022 Daily Progress Note-Nephrology Service: Nephrology Subjective Data: CHRISTOS LYONS is a 77 year old Male who is Hospital Day # 7. Seen and examined. Working with therapy. No acute events, offers no new complaints. Chart/labs/meds/notes/imag ing/VS reviewed. Objective Data: Objective Information: T PRBPMAPSpO2 Value36.17024640/7295% Date/Time09/03 12: 12: 12: 12: 12:38 Range(36.1C - 36.8C ) (68 - 89 ) (16 - 18 ) (102 - 141 )/ (63 - 83 ) (92% - 100% ) Pain reported at 09/02 21:34: 0 = None ---- Intake and Output ----- Mn/Dy/Year TimeIntakeOutputNet Sep 03, 2022 2:00 [id number] The Intake and Output Totals for the last 24 hours are: IntakeOutputNet [id number] Physical Exam by System: Constitutional: Well developed, [...] Sma (more content not included)... Normal [facility] GLUCOSE-POCTon 09-03-2022 Glucose [Mass/Vol] 136 mg/dL High 74 - 99 [facility] Comment on above: Performed By: #### G ZOHREH #### [facility] [address] [place] [address] Glucose [Mass/Vol] 122 mg/dL High 74 - 99 [facility] Comment on above: Performed By: #### G ZOHREH ####[facility] [address] [place] [address] Glucose [Mass/Vol] 147 mg/dL High 74 - 99 [facility] Comment on above: Performed By: #### G ZOHREH #### [facility] [address] [place] [address] Laboratory - Chemistry and C hemistry - challengeon 09-03-2022 Glucose [Mass/Vol] 136 mg/dL above high threshold 74 - 99 [facility] Work Phone: Glucose [Mass/Vol] 122 mg/dL above high threshold 74 - 99 [facility] Work Phone: Glucose [Mass/Vol] 147 mg/dL above high threshold 74 - 99 [facility] Work Phone: Laboratory - Hematology and Cell countson 09-03-2022 Erythrocyte distribution width (RBC) [Ratio] 15.3 % above high threshold See Below [facility] Work Phone: Comment on above: Reference Range: 11. 5 - 14.5 Hematocrit (Bld) [Volume fraction] 29.0 % below low threshold See Below [facility] Work Phone: Comment on above: Reference Range: 41. 0 - 52.0 Hemoglobin (Bld) [Mass/Vol] 10.1 g/dL below low threshold See Below [facility] Work Phone: Comment on above: Reference Range: 13. 5 - 17.5 MCHC (RBC) [Mass/Vol] 34.8 g/dL See Below [facility] Work Phone: Comment on above: Reference Range: 32. 0 - 36.0 MCV (RBC) [Entitic vol] 102 fL above high threshold 80 - 100 [facility] Work Phone: Platelets (Bld) [#/Vol] 245 10*3/uL 150 - 450 [facility] Work Phone: RBC (Bld) [#/Vol] 2.85 {x10E12/L} below low threshold See Below [facility] Work Phone: Comment on above: Reference Range: 4.5 0 - 5.90 WBC (Bld) [#/Vol] 9.0 10*3/uL 4.4 - 11.3 [facility] Work Phone: No Panel Informationon 09-03 0.2 {/100_WBC} 0.0-0.0 [facility] Work Phone: RENAL FUNCTION PANELon 09-03 Albumin [Mass/Vol] 3.3 g/dL Low 3.4 - 5.0 [facility] Comment on above: Performed By: #### R ENAL #### [facility] [address] [place] [address] Anion gap [Moles/Vol] 13 mmol/L Normal 10 - 20 [facility] Comment on above: Performed By: #### R ENAL #### [facility] [address] [place] [address] Calcium [Mass/Vol] 8.6 mg/dL Normal 8.6 - 10.3 [facility] Comment on above: Performed By: #### R ENAL #### [facility] [address] [place] [address] Chloride [Moles/Vol] 89 mmol/L Low 98 - 107 [facility] Comment on above: Performed By: #### R ENAL #### [facility] [address] [place] [address] Creatinine [Mass/Vol] 0.47 mg/dL Low 0.50 - 1.30 [facility] Comment on above: Performed By: #### R ENAL #### [facility] [address] [place] [address] eGFR MALE >90 Normal >90 [facility] Comment on above: Result Comment: CALC ULATIONS OF ESTIMATED GFR ARE PERFORMED USING THE 2020 CKD-EPI STUDY REFIT EQUATION WITHOUT THE RACE VARIABLE FOR THE IDMS-TRACEABLE CREATININE METHODS. https://jasn.asnjournals.org/content//ASN.8521633 988 Performed By: #### R ENAL #### [facility] [address] [place] [address] Glucose [Mass/Vol] 118 mg/dL High 74 - 99 [facility] Comment on above: Performed By: #### R ENAL #### [facility] [address] [place] [address] HCO3 (Bld) [Moles/Vol] 31 mmol/L Normal 21 - 32 [facility] Comment on above: Performed By: #### R ENAL #### [facility] [address] [place] [address] Phosphate [Mass/Vol] 1.9 mg/dL Low 2.5 - 4.9 [facility] Comment on above: Result Comment: The performance characteristics of phosphorus testing in heparinized plasma have been validated by the individual laboratory site where testing is performed. Testing on heparinized plasma is not approved by the FDA; however, such approval is not necessary. Performed By: #### R ENAL #### [facility] [address] [place] [address] Potassium [Moles/Vol] 3.3 mmol/L Low 3.5 - 5.3 [facility] Comment on above: Performed By: #### R ENAL #### [facility] [address] [place] [address] Sodium [Moles/Vol] 130 mmol/L Low 136 - 145 [facility] Comment on above: Performed By: #### R ENAL #### [facility] [address] [place] [id number] Urea nitrogen [Mass/Vol] 8 mg/dL Normal 6 - 23 [facility] Comment on above: Performed By: #### R ENAL #### [facility] [address] [place] [id number] Rehab Note-SCOOTER MECHANIC DYSPHAGIA WOLF ATMENTon 09-03-2022 Rehab Note-[employer]OOTER MECHANIC DYSPHAGIA TREATMENT Rehab: Info: Mode of TreatmentSLP DYSPHAGIA TREATMENT Time IN14:40 Time OUT15:07 Total Treatment [id number] Communicate/Swallow: Swallow Assessment/Intervention/Tr eatment OutcomePt seen for [...] Discharge date unknown at time of visit. SCOOTER MECHANIC to follow during acute care stay. Question if [employer]ER MECHANIC services required post d/c. Electronic Signatures: Alysa Galvez (SCOOTER MECHANIC) (Signed 03-Sep-2022 15:14) Entered: Info, Communicate/Swallow, Short Term Goals Authored: Info, Communicate/Swallow Last Updated: 03-Sep-2022 15:14 by Alysa Galvez (SCOOTER MECHANIC) Normal [facility] Rehab Note-attemptedon 09-03 Rehab Note-attempted Rehab: Info: DisciplineSPTA attempt tx Mode of Treatmentattempted Time IN13:22 Reason Treatment Not Performedpatient/family declined treatment; pt declined tx at this time stated I don't want to do it. pt also noted having bowel movements at this time, RN notified. Electronic Signatures: Prudencio Franco (SPTA) (Signed 03-Sep-2022 13:25) Authored: Nick Guadalupe (PT) (Signed 06-Sep-2022 09:41) Co-Signer: Davis Stanley (CABINET WORKER) (Signed 03-Sep-2022 13:30) Authored: Angel Last Updated: 06-Sep-2022 09:41 by Nick De Jesus (PT) Normal [facility] Rehab Ouft-ba-azhecuedczc Rehab Lnzr-xi-cjwlrkzpa Rehab: Info: Disciplineoccupational therapist Mode of Treatmentco-treatment; occupational therapy Time IN15:05 Time OUT15:30 Total Treatment [id number] Total Minutes CommentCo-tx due to skilled technique [...] Assessment/Interventionssu pine to sit; sit to supine Rwlnoc-fm-Oro [place] (Bed Mobility)moderate assist (50% patient effort); 2 person assist; verbal cues Vnw-uc-Btwxxp [place] (Bed Mobility)verbal cues; 2 person assist; moderate [...] device and sequencing to complete sit<>stand. Sit-Stand [place] (Transfers)moderate assist (50% patient effort); 2 person assist; verbal cues Sit-Stand Assistive Device (Transfers)gait belt; walker, front-wheeled Stand-Sit [place] (Transfers)2 person assist; moderate assist (50% patient [...] ADL: BADL Assessment/Interventiontoi leting; lower body dressing [place] Level (Lower Body Dressing)dependent (less than 25% patient effort) [place] Level (Toileting)dependent (less than 25% patient effort) Motor: Upper Extremity Range of Motion (Therapeutic Exercise)shoulder flexion/extension, bilateral; elbow flexion/extension, bilateral; forearm supination/pronation, bilateral; wrist flexion/extension, bilateral Hand (Therapeutic Exercise)finger flexion/extension, bilateral; thumb finger opposition, bilateral; hand gunner's mate m, bilateral Upper Extremity (Therapeutic Exercise)With verbal instruction [...] Static (Balance)fair balance Sitting, Dynamic (Balance)fair balance Qwk-du-Qymmu (Balance)fair balance Standing, Static (Balance)poor balance Standing, [...] Score11 Short Term Goals: Bed Mobility: Date [id number] Bed Mobility: [place] Level Goalmaximum assist (25% patien (more content not included)... Normal [facility] Rehab Note-feather trimmer christopher 09-03-2022 Rehab Note-occupational therapist Rehab: Info: [...] date. Nurse unavailable on floor; updated via [employer]. Electronic Signatures: Ila Jacob (OT) (Signed 03-Sep-2022 13:46) Authored: Info Last Updated: 03-Sep-2022 13:46 by Ila Jacob (OT) Normal [facility] Rehab Note-physical therapist - co-treatment with OTon 09-03-2022 Rehab Note-physical therapist - co-treatment with OT Rehab: Info: Disciplinephysical licensed physical therapy assistant; co-treatment with OT to enhance pt performance and safety Participated in performance of tx and documentation under the direct supervision of CI, student Prudencio WINN Mode of Treatmentphysical therapy; co-treatment Time IN15:05 Time OUT15:30 Total Treatment [id number] Patient in ... at end of sessionbed, [...] sit to supine; scooting/bridging; bed mobility activities [place] (Bed Mobility)2 person assist; set up; verbal cues; moderate assist (50% patient effort) Scoot/Bridge [place] (Bed Mobility)2 person assist; set up; verbal cues; dependent (less than 25% patient effort) Fxzjec-ek-Ibn [place] (Bed Mobility)moderate assist (50% patient effort); 2 person assist; verbal cues; set up Iaf-xt-Nqnivs [place] (Bed Mobility)verbal cues; set up; 2 person [...] of RLE under COG once standing Sit-Stand [place] (Transfers)moderate assist (50% patient effort); 2 person assist; verbal cues; set up Sit-Stand Assistive Device (Transfers)gait belt; walker, front-wheeled Stand-Sit [place] (Transfers)2 person assist; moderate assist (50% patient effort); verbal cues; set up Stand-Sit Assistive Device (Transfers)gait belt; walker, front-wheeled Safety Issues Impacting Function (Mobility)impulsivity; safety precaution awareness; positioning of assistive device; judgment; sequencing abilities; ability to follow commands Impairments Impacting Function (Mobility)strength; postural/trunk control; balance; endurance/activity tolerance; grasp; motor control; coordination Motor: Sitting, Static (Balance)fair balance Sitting, Dynamic (Balance)fair balance Ibi-bt-Bnhns (Balance)fair balance Standing, Static (Balance)poor balance Standing, [...] Score10 Short Term Goals: Bed Mobility: Date [id number] Bed Mobility: [place] Level Goalminimum assist (75% patients effort) Bed Mobility: Time Frame for Goal2 wks Transfer: Established [id number] Transfer: Transfer Type Tdiiryi-bn-ppuel/chair-to- bed; dwj-ry-zfoiq/surjf-nb-imb Transfer: [place] Level Goalminimum assist (75% patients effort) Transfer: Assistive Device Goalrolling walker Transfer: Time Frame for Goal2 wks Gait: Established [id number] Gait: [place] Level Goalmodified independent Gait: Assistive Device Goalrolling walker Gait: Distance Goalx 20ft Gait: Time Frame for Goal2 wks Education: Education - TopicImportance and benefits of antiembolic exercises DC Recommendations: Discharge Recommendation ( (more content not included)... Normal [facility] Renal Function Panelon 09-03 Albumin BCP dye [Mass/Vol] 3.3 g/dL below low threshold 3.4 - 5.0 [facility] Work Phone: Anion gap [Moles/Vol] 13 mmol/L 10 - 20 [facility] Work Phone: Calcium [Mass/Vol] 8.6 mg/dL 8.6 - 10.3 [facility] Work Phone: Chloride [Moles/Vol] 89 mmol/L below low threshold 98 - 107 [facility] Work Phone: CO2 [Moles/Vol] 31 mmol/L 21 - 32 [facility] Work Phone: Creatinine [Mass/Vol] 0.47 mg/dL below low threshold See Below [facility] Work Phone: Comment on above: Reference Range: 0.5 0 - 1.30 Glucose [Mass/Vol] 118 mg/dL above high threshold 74 - 99 [facility] Work Phone: Phosphate [Mass/Vol] 1.9 mg/dL below low threshold 2.5 - 4.9 [facility] Work Phone: Comment on above: The performance fransisca acteristics of phosphorus testing in heparinized plasma have been validated by the individual laboratory site where testing is performed. Testing on heparinized plasma is not approved by the FDA; however, such approval is not necessary. Potassium [Moles/Vol] 3.3 mmol/L below low threshold 3.5 - 5.3 [facility] Work Phone: Sodium [Moles/Vol] 130 mmol/L below low threshold 136 - 145 [facility] Work Phone: Urea nitrogen [Mass/Vol] 8 mg/dL 6 - 23 -[facility] Work Phone: Renal Function Panel >90 >90 [facility] Work Phone: Comment on above: CALCULATIONS OF ROSANA MATED GFR ARE PERFORMED USING THE 2020 CKD-EPI STUDY REFIT EQUATION WITHOUT THE RACE VARIABLE FOR THE IDMS-TRACEABLE CREATININE METHODS.https://jasn.asnjournals.org/content/early/ASN .9778883902 CBCon 09-02-2022 Erythrocyte distribution width (RBC) [Ratio] 15.0 % High 11.5 - 14.5 [facility] Comment on above: Performed By: #### M G #### [facility] [address] [id number] Hematocrit (Bld) [Volume fraction] 30.2 % Low 41.0 - 52.0 [facility] Comment on above: Performed By: #### M G #### [facility] [address] [place] [address] Hemoglobin (Bld) [Mass/Vol] 10.7 g/dL Low 13.5 - 17.5 [facility] Comment on above: Performed By: #### M G #### [facility] [address] [id number] MCHC (RBC) [Mass/Vol] 35.4 g/dL Normal 32.0 - 36.0 [facility] Comment on above: Performed By: #### M G #### [facility] [address] [place] [address] MCV (RBC) [Entitic vol] 100 fL Normal 80 - 100 [facility] Comment on above: Performed By: #### M G #### [facility] [address] [id number] NUCLEATED RBC 0.2 /100 WBC Normal 0.0-0.0 [facility] Comment on above: Performed By: #### M G #### [facility] [address] [place] [address] Platelets (Bld) [#/Vol] 187 10*3/uL Normal 150 - 450 [facility] Comment on above: Performed By: #### M G #### [facility] [address] [id number] RBC 3.02 x10E12/L Low 4.50 - 5.90 [facility] Comment on above: Performed By: #### M G #### [facility] [address] [place] [address] WBC (Bld) [#/Vol] 9.1 10*3/uL Normal 4.4 - 11.3 [facility] Comment on above: Performed By: #### M G #### [facility] [address] [place] [address] Clinical Event Note-EGD resu ltson 09-02-2022 Clinical [...] 02-Sep-2022 14:47 by Matt Prince) Normal [facility] Consult-Podiatryon 3 Consult-Podiatry Service: Service: Podiatry Consult: Consult requested by (Attending Name): Caesar Sal Reason: b/l LE skin changes History of Present Illness: HPI: JANESCHRISTOS CABRERA is a 77 year old Male with a past medical history of hypertension, hyperlipidemia, anemia, alcohol use disorder, BPH, anxiety, hypothyroidism, gouty arthritis who presented to [facility] complaining of worsening dysphagia to solid [...] Known Allergies: Objective: Objective Information: T PRBPMAPSpO2 Value36.31366833/7194% Date/Time09/02 8: 8: 8: 8: 8:09 Range(36.5C - 37C ) (61 - 74 ) (16 - 17 ) (102 - 137 )/ (55 - 80 ) (93% - 96% ) Highest temp of 37 C was recorded at 09/01 19:51 Pain reported at 09/02 5:12: 0 = None ---- Intake and Output ----- [facility] Sep 02, 2022 6:00 [id number] Sep 01, 2022 10:00 [id number] Sep 01, 2022 2:00 [id number] The Intake and Output Totals for the last 24 hours are: IntakeOutFormerly [facility] [id number] ---Intake--- Enteral - Oral PO Fluid/Feed (oral): [...] SubCut (more content not included)... Normal [facility] Daily Progress Note-Medicine on 09-02-2022 Daily Progress Note-Medicine Service: Medicine Subjective Data: CHRISTOS LYONS is a 77 year old Male who is Hospital Day # 6. On room air, no withdrawal symptoms. Afebrile. Diarrhea improving, had soft stool. Brother bedside. Pt overall feels better but mobility is very weak. Objective Data: Objective Information: T PRBPMAPSpO2 Value36.37706442/7194% Date/Time09/02 8: 8: 8: 8: 8:09 Range(36.5C - 37C ) (61 - 74 ) (16 - 17 ) (102 - 137 )/ (55 - 80 ) (93% - 96% ) Highest temp of 37 C was recorded at 09/01 19:51 Pain reported at 09/02 5:12: 0 = None ---- Intake and Output ----- Mn/Dy/Year [facility]Out[facility] Sep 02, 2022 6:00 [id number] Sep 01, 2022 10:00 [id number] Sep 01, 2022 2:00 [id number] The Intake and Output Totals for the last 24 hours are: IntakeOutFormerly [facility] [id number] Physical Exam by System: Constitutional: no acute [...] 02-Sep-2022 10:20 by Caesar Sal) Normal [facility] Daily Progress Note-Nephrolo gyon 09-02-2022 Daily Progress Note-Nephrology Service: Nephrology Subjective Data: CHRISTOS LYONS is a 77 year old Male who is Hospital Day # 6. Seen and examined. Status post endoscopy. Resting comfortably bed. No acute events, offers no new complaints. Chart/labs/meds/notes/imag ing/VS reviewed. Objective Data: Objective Information: T PRBPMAPSpO2 Value36.31352591/6395% Date/Time09/02 16: 16: 16: 16: 16:25 Range(36.1C - 37C ) (61 - 74 ) (16 - 17 ) (102 - 141 )/ (55 - 80 ) (93% - 96% ) Highest temp of 37 C was recorded at 09/01 19:51 Pain reported at 09/02 15:13: 0 = None ---- Intake and Output ----- Mn/Dy/Year TimeIntakeOutputNet Sep 02, 2022 2:00 [id number] Sep 02, 2022 6:00 [id number] Sep 01, 2022 10:00 [id number] The Intake and Output Totals for the last 24 hours are: IntakeOutputNet [id number] Physical Exam by System: Constitutional: Well developed, [...] technique (more content not included)... Normal [facility] GLUCOSE-POCTon 09-02-2022 Glucose [Mass/Vol] 125 mg/dL High 74 - 99 [facility] Comment on above: Performed By: #### G ZOHREH #### [facility] [address] [place] [address] Glucose [Mass/Vol] 136 mg/dL High 74 - 99 [facility] Comment on above: Performed By: #### G ZOHREH #### [facility] [address] [place] [address] Laboratory - Chemistry and C hemistry - challengeon 09-02-2022 Glucose [Mass/Vol] 125 mg/dL above high threshold 74 - 99 [facility] Work Phone: Glucose [Mass/Vol] 136 mg/dL above high threshold 74 - 99 [facility] Work Phone: Laboratory - Hematology and Cell countson 09-02-2022 Erythrocyte distribution width (RBC) [Ratio] 15.0 % above high threshold See Below [facility] Work Phone: Comment on above: Reference Range: 11. 5 - 14.5 Hematocrit (Bld) [Volume fraction] 30.2 % below low threshold See Below [facility] Work Phone: Comment on above: Reference Range: 41. 0 - 52.0 Hemoglobin (Bld) [Mass/Vol] 10.7 g/dL below low threshold See Below [facility] Work Phone: Comment on above: Reference Range: 13. 5 - 17.5 MCHC (RBC) [Mass/Vol] 35.4 g/dL See Below [facility] Work Phone: Comment on above: Reference Range: 32. 0 - 36.0 MCV (RBC) [Entitic vol] 100 fL 80 - 100 [facility] Work Phone: Platelets (Bld) [#/Vol] 187 10*3/uL 150 - 450 [facility] Work Phone: RBC (Bld) [#/Vol] 3.02 {x10E12/L} below low threshold See Below [facility] Work Phone: Comment on above: Reference Range: 4.5 0 - 5.90 WBC (Bld) [#/Vol] 9.1 10*3/uL 4.4 - 11.3 [facility] Work Phone: No Panel Informationon 09-02 [facility] Work Phone: [email or web address] [email or web address]?={ [id number] [id number]} [facility] Work Phone: [facility] Work Phone: 0.2 {/100_WBC} 0.0-0.0 [facility] Work Phone: [facility] Work Phone: PHOSPHORUSon 09-02-2022 PHOSPHORUS Canceled Normal [facility] Comment on above: Order Comment: TEST PHOSPHORUS WAS CANCELLED, 09/02/2022 01:01 No specimen sent. Result Comment: The performance characteristics of phosphorus testing in heparinized plasma have been validated by the individual laboratory site where testing is performed. Testing on heparinized plasma is not approved by the FDA; however, such approval is not necessary. Performed By: #### G ZOHREH #### [facility] [address] [place] [address] RENAL FUNCTION PANELon 09-02 Albumin [Mass/Vol] 3.5 g/dL Normal 3.4 - 5.0 [facility] Comment on above: Performed By: #### M G #### [facility] [address] [place] [address] Anion gap [Moles/Vol] 13 mmol/L Normal 10 - 20 [facility] Comment on above: Performed By: #### M G #### [facility] [address] [place] [address] Calcium [Mass/Vol] 8.6 mg/dL Normal 8.6 - 10.3 [facility] Comment on above: Performed By: #### M G #### [facility] [address] [place] [address] Chloride [Moles/Vol] 90 mmol/L Low 98 - 107 [facility] Comment on above: Performed By: #### M G #### [facility] [address] [place] [address] Creatinine [Mass/Vol] 0.44 mg/dL Low 0.50 - 1.30 [facility] Comment on above: Performed By: #### M G #### [facility] [address] [place] [address] eGFR MALE >90 Normal >90 [facility] Comment on above: Result Comment: CALC ULATIONS OF ESTIMATED GFR ARE PERFORMED USING THE 2020 CKD-EPI STUDY REFIT EQUATION WITHOUT THE RACE VARIABLE FOR THE IDMS-TRACEABLE CREATININE METHODS. https://jasn.asnjournals.org/content/early//ASN.3948859 988 Performed By: #### M G #### [facility] [address] [place] [address] Glucose [Mass/Vol] 160 mg/dL High 74 - 99 [facility] Comment on above: Performed By: #### M G #### [facility] [address] [place] [address] HCO3 (Bld) [Moles/Vol] 31 mmol/L Normal 21 - 32 [facility] Comment on above: Performed By: #### M G #### [facility] [address] [place] [address] Phosphate [Mass/Vol] 1.6 mg/dL Low 2.5 - 4.9 [facility] Comment on above: Result Comment: The performance characteristics of phosphorus testing in heparinized plasma have been validated by the individual laboratory site where testing is performed. Testing on heparinized plasma is not approved by the FDA; however, such approval is not necessary. Performed By: #### M G #### [facility] [address] [place] [address] Potassium [Moles/Vol] 3.2 mmol/L Low 3.5 - 5.3 [facility] Comment on above: Performed By: #### M G #### [facility] [address] [place] [address] Sodium [Moles/Vol] 131 mmol/L Low 136 - 145 [facility] Comment on above: Performed By: #### M G #### [facility] [address] [place] [address] Urea nitrogen [Mass/Vol] 7 mg/dL Normal 6 - 23 [facility] Comment on above: Performed By: #### M G #### [facility] [address] [place] [address] Rehab Note-speech language p athologiston 09-02-2022 Rehab Note-speech language pathologist Rehab: Info: Disciplinespeech language pathologist Mode of Treatmentattempted Patient/Family/Caregiver Comments/ObservationsSpeec h therapy deferred at this time due to scheduled procedure. Short Term Goals: Bed Mobility: Date [id number] Bed Mobility: [place] Level Goalmaximum assist (25% patients effort) Bed Mobility: Physical Assist Level Goal1-person assist Bed Mobility: Time Frame for Goal2 wks Transfer: Established Transfer: Transfer Type Goaltoilet Transfer: [place] Level Goalmaximum assist (25% patients effort) Transfer: [...] Frame for Goal2 wks Grooming: Established Grooming: [place] Level Goalmodified independent Grooming: Physical Assist Level Goal1-person assist Grooming: Time Frame for Goal2 wks Upper Body Dressing: Established Upper Body Dressing: [place] Level Goalmoderate assist (50% patients effort) Upper Body Dressing: Physical Assist Level Goal1-person assist Upper Body Dressing: Time Frame for Goal2 wks Lower Body Dressing: Established Lower Body Dressing: [place] Level Goalmaximum assist (25% patients effort) Lower Body Dressing: Physical Assist Level Goal1-person assist Lower Body Dressing: Time Frame for Goal2 wks Toileting: Established Toileting: [place] Level Goalmaximum assist (25% patients effort) Toileting: Physical Assist Level Goal1-person assist Toileting: Time Frame for Goal2 wks Electronic Signatures: Wanda Manzano (SCOOTER MECHANIC) (Signed 02-Sep-2022 13:50) Authored: Info, Short Term Goals Last Updated: 02-Sep-2022 13:50 by Wanda Manzano (SCOOTER MECHANIC) Normal [facility] Renal Function Panelon 09-02 Albumin BCP dye [Mass/Vol] 3.5 g/dL 3.4 - 5.0 [facility] Work Phone: Anion gap [Moles/Vol] 13 mmol/L 10 - 20 [facility] Work Phone: Calcium [Mass/Vol] 8.6 mg/dL 8.6 - 10.3 [facility] Work Phone: Chloride [Moles/Vol] 90 mmol/L below low threshold 98 - 107 [facility] Work Phone: CO2 [Moles/Vol] 31 mmol/L 21 - 32 [facility] Work Phone: Creatinine [Mass/Vol] 0.44 mg/dL below low threshold See Below [facility] Work Phone: Comment on above: Reference Range: 0.5 0 - 1.30 Glucose [Mass/Vol] 160 mg/dL above high threshold 74 - 99 [facility] Work Phone: Phosphate [Mass/Vol] 1.6 mg/dL below low threshold 2.5 - 4.[address] [facility] Work Phone: Comment on above: The performance fransisca acteristics of phosphorus testing in heparinized plasma have been validated by the individual laboratory site where testing is performed. Testing on heparinized plasma is not approved by the FDA; however, such approval is not necessary. Potassium [Moles/Vol] 3.2 mmol/L below low threshold 3.5 - 5.3 [facility] Work Phone: Sodium [Moles/Vol] 131 mmol/L below low threshold 136 - 145 [facility] Work Phone: Urea nitrogen [Mass/Vol] 7 mg/dL 6 - 23 -[facility] Work Phone: Renal Function Panel >90 >90 [facility] Work Phone: Comment on above: CALCULATIONS OF ROSANA MATED GFR ARE PERFORMED USING THE 2020 CKD-EPI STUDY REFIT EQUATION WITHOUT THE RACE VARIABLE FOR THE IDMS-TRACEABLE CREATININE METHODS.https://jasn.asnjournals.org/content/early/ASN .7905202742 [facility] Cytologyon 09-02-2022 [facility] Cytology Patient Name CHRISTOS LYONS Date of Procedure: 09/02/2022 Date Reported: 09/06/2022 Date Received: 09/02/2022 Date of / Sex 1945 (Age: 77) / M Race: WHITE Submitting Physician: MATT PRINCE MD Other External # FINAL CYTOLOGICAL INTERPRETATION A. ESOPHAGEAL BRUSH: NO MALIGNANT CELLS IDENTIFIED Unremarkable squamous cells and rare columnar cells No fungal organisms identified Slide(s) initially screened by a Residential Roofer at [facility], [address] [place] [address] Electronically Signed Out By KERRY BRADFORD DO By the signature on this report, the individual or group listed as making the Final Interpretation/Diagnosis certifies that they have reviewed this case. Slide(s) initially screened by a Residential Roofer at [facility] Diagnostic interpretation performed at [facility] [address] [place] [address]. [place] [address] Clinical History RULE OUT CASIE Source of Specimen A: ESOPHAGEAL BRUSH Specimen Submitted as: A: ESOPHAGEAL BRUSH Pap non-director food and beverage ThinPrep slide Gross Description A. ESOPHAGEAL BRUSH: RECEIVED 1 [place] in 30cc OF COLORLESS,CLEAR CYTOLYT WITH PARTICLES. SPECIMEN SENT FOR ANALYSIS TO THE CYTOLOGY DEPARTMENT AT [facility]. [facility] Department of Pathology [address] [place] [address] Normal [facility] Comment on above: Performed By: #### C #### [facility] Cytology [address] [place] [address] Surgical Pathology Depar tmenton 09-02-2022 [facility] Surgical Pathology Department Name CHRISTOS LYONS Pathologist: POLO GRECO MD Date of Procedure: 09/02/2022 Date Received: 09/02/2022 Date Reported 09/06/2022 Submitting Physician: MATT PRINCE MD Location: [facility] Other External # FINAL DIAGNOSIS A. GASTRIC ANTRUM AND BODY, BIOPSIES: --GASTRIC MUCOSA WITH NO SIGNIFICANT HISTOPATHOLOGICAL ABNORMALITIES. --HELICOBACTER IS NOT IDENTIFIED. Electronically Signed Out By POLO GRECO MD/[facility] [place] By the signature on this report, the individual or group listed as making the Final Interpretation/Diagnosis certifies that they have reviewed this case. Diagnostic interpretation performed at [place] [address] Clinical History: Rule out H.Pylori Specimens Submitted As: A: GASTRIC ANTRUM AND BODY,COLD BIOPSY Gross Description: Received in formalin, labeled with the patient's name and hospital number and A gastric antrum body, are two fragments of bai, soft tissue aggregating to 0.7 x 0.2 x 0.2 cm. The specimen is submitted in toto in one cassette. DMB dmb/09/03/2022 [facility] Department of Pathology [address] [place] [address] Normal [facility] Comment on above: Performed By: #### U HCS #### [facility] Surgical Pathology Department [address] [place] [address] Upper GI endoscopyon 023 Upper GI endoscopy PATIENTNAME Patient Name: Christos Lyons EXAMDATE Procedure Date: 09/02/2022 2:24 PM PATIENTID PATIENTACCOUNTNUM PATIENTDOB Date of : 1945 PATIENTROOM Site: [place] [address] ETHNICITY Ethnicity: Not or RACE Race: White PROVDR Attending MD: Matt Prince MD, [id number] ENDOPROCEDURENAME Procedure: Upper GI endoscopy INDICATION Indications: Dysphagia PRIMARYPROVIDER Providers: Matt Prince MD (Doctor) , Jose Pfeiffer, REGULO (Nurse) , Lizett Lau, RN (Nurse) EDREFPROVIDER Referring MD: CURRENT_MEDS Medicines: Sedation [...] 0 hours 5 minutes 45 seconds Normal [facility] BASIC METABOLIC PANELon 04-2 Anion gap [Moles/Vol] 11 mmol/L Normal 10 - 20 [facility] Comment on above: Order Comment: SOD C ALLED RB TO LA NENA ROTHMAN, 09/01/2022 08:36 Performed By: #### V TB12 #### [facility] [address] [place] [address] Calcium [Mass/Vol] 7.3 mg/dL Low 8.6 - 10.3 [facility] Comment on above: Order Comment: SOD C ALLED RB TO LA NENA ROTHMAN, 09/01/2022 08:36 Performed By: #### V TB12 #### [facility] [address] [place] [address] Chloride [Moles/Vol] 80 mmol/L Low 98 - 107 [facility] Comment on above: Order Comment: SOD C ALLED RB TO LA NENA ROTHMAN, 09/01/2022 08:36 Performed By: #### V TB12 #### [facility] [address] [place] [address] Creatinine [Mass/Vol] 0.41 mg/dL Low 0.50 - 1.30 [facility] Comment on above: Order Comment: SOD C ALLED RB TO LA NENA ROTHMAN, 09/01/2022 08:36 Performed By: #### V TB12 #### [facility] [address] [place] [address] eGFR MALE >90 Normal >90 [facility] Comment on above: Order Comment: SOD C ALLED RB TO LA NENA ROTHMAN, 09/01/2022 08:36 Result Comment: CALC ULATIONS OF ESTIMATED GFR ARE PERFORMED USING THE 2020 CKD-EPI STUDY REFIT EQUATION WITHOUT THE RACE VARIABLE FOR THE IDMS-TRACEABLE CREATININE METHODS. https://jasn.asnjournals.org/content//ASN.2925059 988 Performed By: #### V TB12 #### [facility] [address] [place] [address] Glucose [Mass/Vol] 112 mg/dL High 74 - 99 [facility] Comment on above: Order Comment: SOD C ALLED RB TO LA NENA ROTHMAN, 09/01/2022 08:36 Performed By: #### V TB12 #### [facility] [address] [place] [address] HCO3 (Bld) [Moles/Vol] 31 mmol/L Normal 21 - 32 [facility] Comment on above: Order Comment: SOD C ALLED RB TO LA NENA ROTHMAN, 09/01/2022 08:36 Performed By: #### V TB12 #### [facility] [address] [place] [address] Potassium [Moles/Vol] 3.2 mmol/L Low 3.5 - 5.3 [facility] Comment on above: Order Comment: SOD C ALLED RB TO LA NENA ROTHMAN, 09/01/2022 08:36 Performed By: #### V TB12 #### [facility] [address] [place] [address] Sodium [Moles/Vol] 119 mmol/L Critically low 136 - 145 [facility] Comment on above: Order Comment: SOD C ALLED RB TO LA NENA ROTHMAN, 09/01/2022 08:36 Result Comment: SOD CALLED RB TO LA NENA ROTHMAN, 09/01/2022 08:36 Performed By: #### V TB12 #### [facility] [address] [place] [address] Urea nitrogen [Mass/Vol] 8 mg/dL Normal 6 - 23 [facility] Comment on above: Order Comment: SOD C ALLED RB TO LA NENA ROTHMAN, 09/01/2022 08:36 Performed By: #### V TB12 #### [facility] [address] [place] [address] Daily Progress Note-Gastroen terologyon 09-01-2022 Daily Progress Note-Gastroenterolog y Service: Gastroenterology Subjective Data: CHRISTOS LYONS is a 77 year old Male who is Hospital Day # 5. Denies focal abd pain. Reports some loose stools. No rectal bleeding. Objective Data: Objective Information: T PRBPMAPSpO2 Value36.97336925/7696% Date/Time09/01 8: 8: 8: 8: 8:14 Range(36.6C - 37.3C ) (63 - 70 ) (16 - 18 ) (101 - 129 )/ (58 - 76 ) (93% - 96% ) Highest temp of 37.3 C was recorded at 08/31 23:19 Pain reported at 09/01 4:21: sleeping ---- Intake and Output ----- Mn/Dy/Year TimeIntakeOutputNet Sep 01, 2022 6:00 [id number] Aug 31, 2022 10:00 [id number] The Intake and Output Totals for the last 24 hours are: IntakeOutputNet [id number] Physical Exam by System: Constitutional: Well developed, [...] 01-Sep-2022 09:15 by Matt Prince) Normal [facility] Daily Progress Note-Medicine on 09-01-2022 Daily Progress Note-Medicine Service: Medicine Subjective Data: CHRISTOS LYONS is a 77 year old Male who is Hospital Day # 5. On room air, brother bedside. Pt tolerating PO intake. Reports diarrhea. Has condom cath. Afebrile. No overnight events reported. Objective Data: Objective Information: T PRBPMAPSpO2 [id number]/7493% Date/Time09/01 11: 11: 11: 11: 11:55 Range(36.5C - 37.3C ) (61 - 70 ) (16 - 18 ) (101 - 129 )/ (58 - 76 ) (93% - 96% ) Highest temp of 37.3 C was recorded at 08/31 23:19 Pain reported at 09/01 11:09: 0 = None ---- Intake and Output ----- Mn/Dy/Year TimeIntakeOutputNet Sep 01, 2022 2:00 [id number] Sep 01, 2022 6:00 [id number] Aug 31, 2022 10:00 [id number] The Intake and Output Totals for the last 24 hours are: IntakeOutputNet [id number] Physical Exam by System: Constitutional: no acute [...] Last Updated: 01-Sep-2022 17:04 by Caesar Sal) Normal [facility] Daily Progress Note-Nephrolo gyon 09-01-2022 Daily Progress Note-Nephrology Service: Nephrology Subjective Data: CHRISTOS LYONS is a 77 year old Male who is Hospital Day # 5. Seen and examined. Working with therapy. No acute events, he does not offer new complaints. Chart/labs/meds/notes/imag ing/VS reviewed. Objective Data: Objective Information: T PRBPMAPSpO2 Value36.38218236/7493% Date/Time09/01 11: 11: 11:5509/01 11: 11:55 Range(36.5C - 37.3C ) (61 - 70 ) (16 - 18 ) (101 - 129 )/ (58 - 76 ) (93% - 96% ) Highest temp of 37.3 C was recorded at 08/31 23:19 Pain reported at 09/01 11:09: 0 = None ---- Intake and Output ----- Mn/Dy/Year TimeIntakeOutputNet Sep 01, 2022 2:00 [id number] Sep 01, 2022 6:00 [id number] Aug 31, 2022 10:00 [id number] The Intake and Output Totals for the last 24 hours are: IntakeOutputNet [id number] Physical Exam by System: Constitutional: Well developed, [...] slidin (more content not included)... Normal [facility] Laboratory - Chemistry and C hemistry - challengeon 09-01-2022 Anion gap [Moles/Vol] 11 mmol/L 10 - 20 [facility] Work Phone: Calcium [Mass/Vol] 7.3 mg/dL below low threshold 8.6 - 10.3 [facility] Work Phone: Chloride [Moles/Vol] 80 mmol/L below low threshold 98 - 107 [facility] Work Phone: CO2 [Moles/Vol] 31 mmol/L 21 - 32 [facility] Work Phone: Creatinine [Mass/Vol] 0.41 mg/dL below low threshold See Below [facility] Work Phone: Comment on above: Reference Range: 0.5 0 - 1.30 Glucose [Mass/Vol] 112 mg/dL above high threshold 74 - 99 [facility] Work Phone: Potassium [Moles/Vol] 3.2 mmol/L below low threshold 3.5 - 5.3 [facility] Work Phone: Sodium [Moles/Vol] 119 mmol/L Critically low 136 - 145 [facility] Work Phone: Comment on above: SOD CALLED RB TO CARLIE ROTHMAN, 09/01/2022 08:36 Urea nitrogen [Mass/Vol] 8 mg/dL 6 - 23 [facility] Work Phone: MAGNESIUMon 09-01-2022 Magnesium [Mass/Vol] 1.90 mg/dL Normal 1.60 - 2.40 [facility] Comment on above: Performed By: #### M #### [facility] [address] [place] [address] Magnesium, Serumon Magnesium [Mass/Vol] 1.90 mg/dL See Below [facility] Work Phone: Comment on above: Reference Range: 1.6 0 - 2.40 No Panel Informationon 09-01 >90 >90 [facility] Work Phone: Comment on above: CALCULATIONS OF ROSANA MATED GFR ARE PERFORMED USING THE 2020 CKD-EPI STUDY REFIT EQUATION WITHOUT THE RACE VARIABLE FOR THE IDMS-TRACEABLE CREATININE METHODS.https://jasn.asnjournals.org/content//ASN .5526872953 Phosphorus, Serumon 09-02-19 Phosphate [Mass/Vol] Canceled MP-U kianna [facility] [place] Work Phone: Comment on above: The performance fransisca acteristics of phosphorus testing in heparinized plasma have been validated by the individual laboratory site where testing is performed. Testing on heparinized plasma is not approved by the FDA; however, such approval is not necessary. Rehab Rhmk-ha-tfwtgvvlqzd Rehab Eyhu-ec-cqtlkdrbq Rehab: Info: Disciplineoccupational therapist Mode of Treatmentco-treatment Time IN13:17 Time OUT13:45 Total Treatment [id number] Total Minutes Commentco-treatment with PT to maximize [...] to sit; sit to supine; scooting/bridging Scoot/Bridge [place] (Bed Mobility)maximum assist (25% patient effort); 2 person assist; MAX A x2 for lateral scooting towards R side while seated EOB, required VCs for hand placement and anterior weight shifting Ssywzq-yk-Hew [place] (Bed Mobility)moderate assist (50% patient effort); 2 person assist; MOD A x2 for managing BLE to edge of bed and for lifting trunk, performed with HOB slightly elevated Wru-jk-Ygtcyb [place] (Bed Mobility)maximum assist (25% patient effort); 2 person assist; MAX A x2 for lifting BLE back to bed and for lowering/positioning trunk Transfer Assessment/Interventionssi t to stand transfer; stand to sit transfer Sit-Stand [place] (Transfers)maximum assist (25% patient effort); 2 person assist; MAX A x2 to stand from EOB with FWW and arm n arm assist, VCs for hand placement Sit-Stand Assistive Device (Transfers)walker, front-wheeled Stand-Sit [place] (Transfers)maximum assist (25% patient effort); 2 person assist Stand-Sit Assistive Device (Transfers)walker, front-wheeled Comment, Gait/Stairs Trainingpt attempted lateral stepping towards R side with FWW however unsuccessful due to inadequate weight shifting and difficulty advancing BLE. Impairments Impacting Function (Mobility)balance; endurance/activity tolerance; strength; postural/trunk control ADL: BADL Assessment/Interventionlow er body dressing; toileting [place] Level (Lower Body Dressing)dependent (less than 25% patient effort) Comment (Lower Body Dressing)Total A for donning yoandy socks due to fatigue and decreased postural strength [place] Level (Toileting)dependent (less than 25% patient effort); [...] reliance for stability Sitting, Dynamic (Balance)fair - Yzd-pv-Bdtsn (Balance)poor balance MAX A x2 stand Standing, [...] Score11 Short Term Goals: Bed Mobility: Date [id number] Bed Mobility: [place] Level Goalmaximum assist (25% patients effort) Bed Mobility: Physical Assist Level Goal1-person assist Bed Mobility: Time Frame for Goal2 wks Transfer: Established [id number]-7260 Transfer: Transfer Type Goaltoilet Transfer: [place] Level Goalmaximum assist (25% patients effort) Transfer: Physica (more content not included)... Normal [facility] Rehab Note-physical therapist - Co-treat with OT magdiel 09-01-2022 Rehab Note-physical therapist - Co-treat with OT to Rehab: Info: Disciplinephysical licensed physical therapy assistant; Co-treat with OT to maximize patient participation and safty Participated in performance of tx and documentation under the direct supervision of CI, student Prudencio WINN Mode of Treatmentphysical therapy; co-treatment Time IN13:17 Time OUT13:45 Total Treatment [id number] Patient in ... at end of sessionbed, [...] sit to supine; scooting/bridging; bed mobility activities [place] (Bed Mobility)maximum assist (25% patient effort); 2 person assist; set up; verbal cues Scoot/Bridge [place] (Bed Mobility)maximum assist (25% patient effort); 2 person assist; set up; verbal cues Kficpv-aw-Ezp [place] (Bed Mobility)moderate assist (50% patient effort); 2 person assist; verbal cues; set up Trk-jr-Ueeuxt [place] (Bed Mobility)verbal cues; set up; maximum assist [...] demos with anterior lean upon standing. Sit-Stand [place] (Transfers)moderate assist (50% patient effort); 2 person assist; verbal cues; set up Sit-Stand Assistive Device (Transfers)gait belt; walker, front-wheeled Stand-Sit [place] (Transfers)2 person assist; moderate assist (50% patient effort); verbal cues; set up Stand-Sit Assistive Device (Transfers)gait belt; walker, front-wheeled Safety Issues Impacting Function (Mobility)impulsivity; safety precaution awareness; positioning of assistive device; judgment; sequencing abilities Impairments Impacting Function (Mobility)strength; postural/trunk control; balance; endurance/activity tolerance; grasp; motor control Motor: Sitting, Static (Balance)fair balance Sitting, Dynamic (Balance)fair balance Czo-el-Bfrrc (Balance)fair balance Standing, Static (Balance)poor balance Standing, [...] Score10 Short Term Goals: Bed Mobility: Date [id number]-Abd-2089 Bed Mobility: [place] Level Goalminimum assist (75% patients effort) Bed Mobility: Time Frame for Goal2 wks Transfer: Established [id number] Transfer: Transfer Type Xojnwnu-mk-chvsi/chair-to- bed; jto-bc-lmwlf/busfp-ho-cua Transfer: [place] Level Goalminimum assist (75% patients effort) Transfer: Assistive Device Goalrolling walker Transfer: Time Frame for Goal2 wks Gait: Established [id number] Gait: [place] Level Goalmodified independent Gait: Assistive Device Goalrolling [...] Jason (more content not included)... Normal [facility] Rehab Eson-ylpvfq-tevxtwuq p athologyon 09-01-2022 Rehab Imok-zrojmp-jlyuawkq pathology Rehab: Info: Disciplinespeech language pathologist Mode of Treatmentspeech-language pathology Time IN12:30 Time OUT13:00 Total Treatment [id number] Patient Effortexcellent Patient Response to TreatmentPt doing much better overall. Pt intake has appeared to return to normal. Pt continues to have a fear of something being wrong with his throat or esophagus and is still eager to have the EGD to confirm. Communicate/Swallow: SCOOTER MECH[employer]IC Diet RecommendationsRegular SCOOTER MECH[employer]IC Liquid Consistency RecommendationsThin 0 (Regular thin) Recommended [...] speech therapy. Short Term Goals: Dysphagia/Swallow: Established [id number]-6993 Dysphagia/Swallow: Goal Details1. Pt will swallow the [...] therapy upon discharge Electronic Signatures: Wanda Manzano (SCOOTER MECHANIC) (Signed 01-Sep-2022 14:58) Authored: Info, Communicate/Swallow, Short Term Goals, Education, Outcome Summary, DC Recommendations Last Updated: 01-Sep-2022 14:58 by Wanda Manzano (SCOOTER MECHANIC) Normal [facility] STOOL PATHOGEN PCR PANELon 0 09-01-2022 CAMPYLOBACTER GP. Not detected Normal NOT DETECTED [facility] Comment on above: Performed By: #### M G #### [facility] [address] [place] [id number] NOROVIRUS GI/GII Not detected Normal NOT DETECTED [facility] Comment on above: Performed By: #### M G #### [facility] [address] [place] [id number] ROTAVIRUS A Not detected Normal NOT DETECTED [facility] Comment on above: Result Comment: The enteric [...] panel. Performed By: #### M G #### [facility] [address] [place] [id number] SALMONELLA SP. Not detected Normal NOT DETECTED [facility] Comment on above: Performed By: #### M G #### [facility] [address] [place] [address] SHIGA TOXIN 1 Not detected Normal NOT DETECTED [facility] Comment on above: Performed By: #### M G #### [facility] [address] [place] [address] SHIGA TOXIN 2 Not detected Normal NOT DETECTED [facility] Comment on above: Performed By: #### M G #### [facility] [address] [place] [address] SHIGELLA SP. Not detected Normal NOT DETECTED [facility] Comment on above: Performed By: #### M G #### [facility] [address] [place] [address] VIBRIO [employer] Not detected Normal NOT DETECTED [facility] Comment on above: Performed By: #### M G #### [facility] [address] [place] [id number] YERSINIA ENTEROCOLITICA Not detected Normal NOT DETECTED [facility] Comment on above: Performed By: #### M G #### [facility] [address] [place] [address] Lab Specimen Source Normal [facility] Comment on above: Performed By: #### M G #### [facility] [address] [place] [id number] CBCon 08-31-2022 Erythrocyte distribution width (RBC) [Ratio] 14.3 % Normal 11.5 - 14.5 [facility] Comment on above: Performed By: #### M G #### [facility] [address] [place] [id number] Hematocrit (Bld) [Volume fraction] 28.2 % Low 41.0 - 52.0 [facility] Comment on above: Performed By: #### M G #### [facility] [address] [place] [address] Hemoglobin (Bld) [Mass/Vol] 10.1 g/dL Low 13.5 - 17.5 [facility] Comment on above: Performed By: #### M G #### [facility] [address] [place] [address] MCHC (RBC) [Mass/Vol] 35.8 g/dL Normal 32.0 - 36.0 [facility] Comment on above: Performed By: #### M G #### [facility] [address] [place] [address] MCV (RBC) [Entitic vol] 99 fL Normal 80 - 100 [facility] Comment on above: Performed By: #### M G #### [facility] [address] [place] [address] Platelets (Bld) [#/Vol] 125 10*3/uL Low 150 - 450 [facility] Comment on above: Performed By: #### M G #### [facility] [address] [place] [address] RBC 2.86 x10E12/L Low 4.50 - 5.90 [facility] Comment on above: Performed By: #### M G #### [facility] [address] [place] [address] WBC (Bld) [#/Vol] 7.5 10*3/uL Normal 4.4 - 11.3 [facility] Comment on above: Performed By: #### M G #### [facility] [address] [place] [address] COMPREHENSIVE PANELon 2022 Albumin [Mass/Vol] 3.2 g/dL Low 3.4 - 5.0 [facility] Comment on above: Performed By: #### M G #### [facility] [address] [place] [address] ALP [Catalytic activity/Vol] 162 U/L High 33 - 136 [facility] Comment on above: Performed By: #### M G #### [facility] [address] [place] [address] ALT [Catalytic activity/Vol] 49 U/L Normal 10 - 52 [facility] Comment on above: Result Comment: Raysa ents treated with Sulfasalazine may generate falsely decreased results for ALT. Performed By: #### M G #### [facility] [address] [place] [address] Anion gap [Moles/Vol] 11 mmol/L Normal 10 - 20 [facility] Comment on above: Performed By: #### M G #### [facility] [address] [place] [address] AST [Catalytic activity/Vol] 144 U/L High 9 - 39 [facility] Comment on above: Performed By: #### M G #### [facility] [address] [place] [address] Bilirubin [Mass/Vol] 2.9 mg/dL High 0.0 - 1.2 [facility] Comment on above: Performed By: #### M G #### [facility] [address] [place] [address] Calcium [Mass/Vol] 7.5 mg/dL Low 8.6 - 10.3 [facility] Comment on above: Performed By: #### M G #### [facility] [address] [place] [address] Chloride [Moles/Vol] 81 mmol/L Low 98 - 107 [facility] Comment on above: Performed By: #### M G #### [facility] [address] [place] [address] Creatinine [Mass/Vol] 0.39 mg/dL Low 0.50 - 1.30 [facility] Comment on above: Performed By: #### M G #### [facility] [address] [place] [address] eGFR MALE >90 Normal >90 [facility] Comment on above: Result Comment: CALC ULATIONS OF ESTIMATED GFR ARE PERFORMED USING THE 2020 CKD-EPI STUDY REFIT EQUATION WITHOUT THE RACE VARIABLE FOR THE IDMS-TRACEABLE CREATININE METHODS. https://jasn.asnjournals.org/content//ASN.6763540 988 Performed By: #### M G #### [facility] [address] [place] [address] Glucose [Mass/Vol] 105 mg/dL High 74 - 99 [facility] Comment on above: Performed By: #### M G #### [facility] [address] [place] [address] HCO3 (Bld) [Moles/Vol] 32 mmol/L Normal 21 - 32 [facility] Comment on above: Performed By: #### M G #### [facility] [address] [place] [address] Potassium [Moles/Vol] 3.2 mmol/L Low 3.5 - 5.3 [facility] Comment on above: Performed By: #### M G #### [facility] [address] [place] [address] Protein [Mass/Vol] 5.5 g/dL Low 6.4 - 8.2 [facility] Comment on above: Performed By: #### M G #### [facility] [address] [place] [address] Sodium [Moles/Vol] 121 mmol/L Low 136 - 145 [facility] Comment on above: Performed By: #### M G #### [facility] [address] [place] [address] Urea nitrogen [Mass/Vol] 7 mg/dL Normal 6 - 23 [facility] Comment on above: Performed By: #### M G #### [facility] [address] [place] [address] Daily Progress Note-Gastroen terologyon 08-31-2022 Daily Progress Note-Gastroenterolog y Consult Type: subsequent visit/care Service: Gastroenterology Subjective Data: CHRISTOS LYONS is a 77 year old Male who is Hospital Day # 4. sodium is 121. c/o pain from arthritis. Overnight Events: Patient had an uneventful night. Objective Data: Objective Information: T PRBPMAPSpO2 Value36.38063337/5896% Date/Time08/31 8: 8: 8: 8: 8:38 Range(36.3C [...] Panel, (more content not included)... Normal [facility] Daily Progress Note-Medicine on 08-31-2022 Daily Progress Note-Medicine Service: Medicine Subjective Data: CHRISTOS LYONS is a 77 year old Male who is Hospital Day # 4. Getting more pain in his legs. Abd distension going down. Still with loose stools. Objective Data: Objective Information: T PRBPMAPSpO2 Value36.02093169/5896% Date/Time08/31 8: 8: 8: 8: 8:38 Range(36.3C [...] 31-Aug-2022 13:38 by Miles Ahn) Normal [facility] Daily Progress Note-Nephrolo gyon 08-31-2022 Daily Progress Note-Nephrology Service: Nephrology Subjective Data: CHRISTOS LYONS is a 77 year old Male who is Hospital Day # 4. Seen and examined. No acute events, he does not offer new complaints. Chart/labs/meds/notes/imag ing/VS reviewed. Objective Data: Objective Information: T PRBPMAPSpO2 Value36.24876755/5896% Date/Time08/31 8: 8: 8: 8: 8:38 Range(36.3C - 36.8C ) (64 - 69 ) (18 - 18 ) (101 - 119 )/ (54 - 72 ) (93% - 96% ) Pain reported at 08/31 15:07: 0 = None ---- Intake and Output ----- Mn/Dy/Year TimeIntakeOutputNet Aug 30, 2022 10:00 [id number] The Intake and Output Totals for the last 24 hours are: IntakeOutputNet [id number] Physical Exam by System: Constitutional: Well developed, [...] ref (more content not included)... Normal [facility] Daily Progress Note-Pulmonol asia 08-31-2022 Daily Progress [...] hyponatremia. Objective Data: Objective Information: T PRBPMAPSpO2 Value36.61324086/5896% Date/Time08/31 8: 8: 8: 8: 8:38 Range(36.3C - 36.8C ) (64 - 69 ) (18 - 18 ) (101 - 119 )/ (54 - 72 ) (93% - 96% ) Pain reported at 08/30 22:12: 0 = None Physical exam: General-awake, alert and in no acute distress. Lungs-clear, without wheezes, rales or rhonchi. Heart-regular rate and rhythm. Abdomen-positive bowel sounds. Zapiijqdwfk-3-3+ lower extremity edema. Skin-venous stasis changes of [...] Last Updated: 31-Aug-2022 10:30 by Khang Wagner) [facility] EMR ADDONon 08-31-2022 ADDON CONFIRMATION REQUEST REC'D Normal [facility] Comment on above: Performed By: #### M G #### [facility] [address] [place] [address] Echocardiogramon 08-31-2022 Echocardiography [facility] , [address] [address] and TRANSTHORACIC ECHOCARDIOGRAM REPORT Patient Name: CHRISTOS LYONS Reading Physician: [id number] Giovanny Blood DO Study Date: 08/31/2022 Referring Physician: MILES AHN MRN/PID: [id number] PCP: Accession/Order#: [id number] Department Location: Date of : 1945 Fellow: Gender: M Nurse: Admit Date: 08/28/2022 Aquaculture Farmer: Hunter Navarro RDCS Admission Status: Inpatient - Routine Additional Staff: Height: 178.00 cm CC Report to: Weight: 70.00 kg Study Type: Echocardiogram BSA: 1.87 m2 Blood Pressure: 115 /58 mmHg Diagnosis/ICD: R60.0-Localized edema Indication: Edema Procedure/CPT: Echo Complete w Full Doppler-[id number] Patient History: Pertinent History: HLD, EtOH, HTN. [...] LA Area A2C: 16.6 cm2 LA Major Ullin A4C: 5.1 cm LA Major Ullin A2C: 5.0 cm LA Vol A4C: 42.8 [...] cm/s AORTA: Asc Ao Diam 4.72 cm [id number] Giovanny Jeremi DO Electronically signed on 08/31/2022 at 5:12:06 PM Final Normal [facility] FOLATE, SERUMon 08-31-2022 Folate [Mass/Vol] 5.6 ng/mL Normal >5.0 [facility] Comment on above: Result Comment: Low <3.4 Borderline 3.4-5.0 Normal >5.0 . Biotin interference may cause falsely elevated results. Patients taking a Biotin dose of up to 5 mg/day should refrain from taking Biotin for 24 hours before sample collection. Providers may contact their local laboratory for further information. Performed By: #### M G #### [facility] [address] [place] [address] Folate, Serumon 08-31-2022 Folate [Mass/Vol] 5.6 ng/mL >5.0 [facility] Work Phone: Comment on above: Low <3.4Borderline [...] g/dL below low threshold 3.4 - 5.0 [facility] Work Phone: ALP [Catalytic activity/Vol] 162 U/L above high threshold 33 - 136 [facility] Work Phone: ALT With P-5'-P [Catalytic activity/Vol] 49 U/L 10 - 52 [facility] Work Phone: Comment on above: Patients treated wit h Sulfasalazine may generate falsely decreased results for ALT. Anion gap [Moles/Vol] 11 mmol/L 10 - 20 [facility] Work Phone: AST With P-5'-P [Catalytic activity/Vol] 144 U/L above high threshold 9 - 39 [facility] Work Phone: Bilirubin [Mass/Vol] 2.9 mg/dL above high threshold 0.0 - 1.2 -[facility] Work Phone: Calcium [Mass/Vol] 7.5 mg/dL below low threshold 8.6 - 10.3 -[facility] Work Phone: Chloride [Moles/Vol] 81 mmol/L below low threshold 98 - 107 [facility] Work Phone: CO2 [Moles/Vol] 32 mmol/L 21 - 32 [facility] Work Phone: Creatinine [Mass/Vol] 0.39 mg/dL below low threshold See Below [facility] Work Phone: Comment on above: Reference Range: 0.5 0 - 1.30 Glucose [Mass/Vol] 105 mg/dL above high threshold 74 - 99 [facility] Work Phone: Potassium [Moles/Vol] 3.2 mmol/L below low threshold 3.5 - 5.3 -[facility] Work Phone: Protein [Mass/Vol] 5.5 g/dL below low threshold 6.4 - 8.2 -[facility] Work Phone: Sodium [Moles/Vol] 121 mmol/L below low threshold 136 - 145 [facility] Work Phone: Urea nitrogen [Mass/Vol] 7 mg/dL 6 - 23 -[facility] Work Phone: Laboratory - Hematology and Cell countson 08-31-2022 Erythrocyte distribution width (RBC) [Ratio] 14.3 % See Below [facility] Work Phone: Comment on above: Reference Range: 11. 5 - 14.5 Hematocrit (Bld) [Volume fraction] 28.2 % below low threshold See Below [facility] Work Phone: Comment on above: Reference Range: 41. 0 - 52.0 Hemoglobin (Bld) [Mass/Vol] 10.1 g/dL below low threshold See Below [facility] Work Phone: Comment on above: Reference Range: 13. 5 - 17.5 MCHC (RBC) [Mass/Vol] 35.8 g/dL See Below [facility] Work Phone: Comment on above: Reference Range: 32. 0 - 36.0 MCV (RBC) [Entitic vol] 99 fL 80 - 100 [facility] Work Phone: Platelets (Bld) [#/Vol] 125 10*3/uL below low threshold 150 - 450 [facility] Work Phone: RBC (Bld) [#/Vol] 2.86 {x10E12/L} below low threshold See Below [facility] Work Phone: Comment on above: Reference Range: 4.5 0 - 5.90 WBC (Bld) [#/Vol] 7.5 10*3/uL 4.4 - 11.3 [facility] Work Phone: No Panel Informationon 08-31 >90 >90 [facility] Work Phone: Comment on above: CALCULATIONS OF ROSANA MATED GFR ARE PERFORMED USING THE 2020 CKD-EPI STUDY REFIT EQUATION WITHOUT THE RACE VARIABLE FOR THE IDMS-TRACEABLE CREATININE METHODS.https://jasn.asnjournals.org/content//ASN .1665034715 Nutrition Therapy-Assessment on 08-31-2022 Nutrition Therapy-Assessment Assessment Subjective/Objective: Note Type: Assessment Note Authored by: Registered Dietitian Lead Investigator Nutrition Note: The patient is a 77 year old Male visit reason: failure to thrive. Nutrition Consult: MST Per H&P: CHRISTOS LYONS is a 77 year old Male with a past medical history of hypertension, hyperlipidemia, anemia, alcohol use disorder, BPH, anxiety, hypothyroidism, gouty arthritis who presented to [facility] complaining of worsening dysphagia to solid [...] laboratory results: Complete Blood Count Trending View [id number] 06:09:00 30-Aug-2022 06:27:00 White Blood Cell Count7.5 7.0 Red Blood Cell Count2.86 L 2.93 L HGB10.1 L 10.2 L HCT28.2 L 28.4 L MCV99 97 MCHC35.8 35.9 PZZ729 L 118 L RDW-CV14.3 13.9 Comprehensive Metabolic [...] 240 All ranges are based on fasting [facility] HDL Cholesterol, Serum 62.4 . AGE VERY [...] N (more content not included)... Normal [facility] PHOSPHORUSon 08-31-2022 Phosphate [Mass/Vol] 1.9 mg/dL Low 2.5 - 4.9 [facility] Comment on above: Result Comment: The performance characteristics of phosphorus testing in heparinized plasma have been validated by the individual laboratory site where testing is performed. Testing on heparinized plasma is not approved by the FDA; however, such approval is not necessary. Performed By: #### P [facility] ####[facility] [id number] [place] [address] Phosphorus, Serumon 09-01-19 23 Phosphate [Mass/Vol] 1.9 mg/dL below low threshold 2.5 - 4.9 [facility] Work Phone: Comment on above: The performance fransisca acteristics of phosphorus testing in heparinized plasma have been validated by the individual laboratory site where testing is performed. Testing on heparinized plasma is not approved by the FDA; however, such approval is not necessary. STOOL PATHOGEN PCR PANELon 0 08-31-2022 Campylobacter sp DNA.diarrheagenic NEVIN+probe Ql (Stl) Not detected See Below [facility] Work Phone: Comment on above: Reference Range: NOT DETECTED E. coli stx1 gene NEVIN+probe Ql (Unsp spec) Not detected See Below [facility] Work Phone: Comment on above: Reference Range: NOT DETECTED E. coli stx2 gene NEVIN+probe Ql (Unsp spec) Not detected See Below [facility] Work Phone: Comment on above: Reference Range: NOT DETECTED Norovirus genogroup I and II RNA NEVIN+probe Nom (Stl) Not detected See Below [facility] Work Phone: Comment on above: Reference Range: NOT DETECTED Rotavirus RNA NEVIN+probe Nom (Stl) Not detected See Below [facility] Work Phone: Comment on [...] Ql (Unsp spec) Not detected See Below [facility] Work Phone: Comment on above: Reference Range: NOT DETECTED Vibrio sp DNA NEVIN+probe Nom (Unsp spec) Not detected See Below [facility] Work Phone: Comment on above: Reference Range: NOT DETECTED Yersinia sp DNA NEVIN+probe Nom (Unsp spec) Not detected See Below [facility] Work Phone: Comment on above: SOURCE: Reference Ra nge: NOT DETECTED STOOL PATHOGEN PCR PANEL Not detected See Below [facility] Work Phone: Comment on above: Reference Range: NOT DETECTED VITAMIN B12on 08-31-2022 Cobalamin (Vitamin B12) [Mass/Vol] 556 pg/mL Normal 211 - 911 [facility] Comment on above: Performed By: #### V TB12 #### [facility] [address] [place] [address] Vitamin B12, Serumon 023 Cobalamin (Vitamin B12) [Mass/Vol] 556 pg/mL 211 - 911 [facility] Work Phone: BASIC METABOLIC PANELon 08-08 Anion gap [Moles/Vol] 11 mmol/L Normal 10 - 20 [facility] Comment on above: Order Comment: SOD C CONSUELO RB TO IVY MOHAN, 08/30/2022 08:10 Performed By: #### G ZOHREH #### [facility] [address] [place] [address] Calcium [Mass/Vol] 7.7 mg/dL Low 8.6 - 10.3 [facility] Comment on above: Order Comment: SOD C CONSUELO RB TO IVY KIMBERLEE, 08/30/2022 08:10 Performed By: #### G ZOHREH #### [facility] [address] [place] [address] Chloride [Moles/Vol] 80 mmol/L Low 98 - 107 [facility] Comment on above: Order Comment: SOD C ALLED RB TO IVY SAMPRAM, 08/30/2022 08:10 Performed By: #### G ZOHREH #### [facility] [address] [place] [address] Creatinine [Mass/Vol] 0.47 mg/dL Low 0.50 - 1.30 [facility] Comment on above: Order Comment: SOD C ALLED RB TO IVY SAMPRAM, 08/30/2022 08:10 Performed By: #### G ZOHREH #### [facility] [address] [place] [address] eGFR MALE >90 Normal >90 [facility] Comment on above: Order Comment: SOD C ALLED RB TO IVY SAMPRAM, 08/30/2022 08:10 Result Comment: CALC ULATIONS OF ESTIMATED GFR ARE PERFORMED USING THE 2020 CKD-EPI STUDY REFIT EQUATION WITHOUT THE RACE VARIABLE FOR THE IDMS-TRACEABLE CREATININE METHODS. https://jasn.asnjournals.org/content/early//ASN.5043419 988 Performed By: #### G ZOHREH #### [facility] [address] [place] [address] Glucose [Mass/Vol] 109 mg/dL High 74 - 99 [facility] Comment on above: Order Comment: SOD C ALLED RB TO IVY SAMPRAM, 08/30/2022 08:10 Performed By: #### G ZOHREH #### [facility] [address] [place] [address] HCO3 (Bld) [Moles/Vol] 31 mmol/L Normal 21 - 32 [facility] Comment on above: Order Comment: SOD C ALLED RB TO IVY SAMPRAM, 08/30/2022 08:10 Performed By: #### G ZOHREH #### [facility] [address] [place] [id number] Potassium [Moles/Vol] 3.2 mmol/L Low 3.5 - 5.3 [facility] Comment on above: Order Comment: SOD C ALLED RB TO IVY MOHAN, 08/30/2022 08:10 Performed By: #### G ZOHREH #### [facility] [address] [place] [address] Sodium [Moles/Vol] 119 mmol/L Critically low 136 - 145 [facility] Comment on above: Order Comment: SOD C ALLED RB TO IVY MOHAN, 08/30/2022 08:10 Result Comment: SOD CALLED RB TO IVY FRANKLINPRAEric, 08/30/2022 08:10 Performed By: #### G ZOHREH #### [facility] [address] [place] [id number] Urea nitrogen [Mass/Vol] 9 mg/dL Normal 6 - 23 [facility] Comment on above: Order Comment: SOD C ALLED RB TO IVY MOHAN, 08/30/2022 08:10 Performed By: #### G ZOHREH #### [facility] [address] [place] [id number] C Reactive Protein, Serumon 08-30-2022 CRP [Mass/Vol] 12.67 mg/dL Abnormal [facility] Work Phone: Comment on above: REF VALUE< 1.00 C-REACTIVE PROTEINon 023 C-REACTIVE PROTEIN 12.67 mg/dL Abnormal [facility] Comment on above: Result Comment: REF VALUE < 1.00 Performed By: #### C RP ####[facility] [id number] [place] [address] CBCon 08-30-2022 Platelets (Bld) [#/Vol] 118 10*3/uL Low 150 - 450 [facility] Comment on above: Result Comment: Plat elet count may be higher than reported due to presence of Platelet Clumps. Performed By: #### R ENAL #### [facility] [address] [id number] Erythrocyte distribution width (RBC) [Ratio] 13.9 % Normal 11.5 - 14.5 [facility] Comment on above: Performed By: #### R ENAL #### [facility] [address] [id number] Hematocrit (Bld) [Volume fraction] 28.4 % Low 41.0 - 52.0 [facility] Comment on above: Performed By: #### R ENAL #### [facility] [address] [id number] Hemoglobin (Bld) [Mass/Vol] 10.2 g/dL Low 13.5 - 17.5 [facility] Comment on above: Performed By: #### R ENAL #### [facility] [address] [id number] MCHC (RBC) [Mass/Vol] 35.9 g/dL Normal 32.0 - 36.0 [facility] Comment on above: Performed By: #### R ENAL #### [facility] [address] [id number] MCV (RBC) [Entitic vol] 97 fL Normal 80 - 100 [facility] Comment on above: Performed By: #### R ENAL #### [facility] [address] [id number] RBC 2.93 x10E12/L Low 4.50 - 5.90 [facility] Comment on above: Performed By: #### R ENAL #### [facility] [address] [id number] WBC (Bld) [#/Vol] 7.0 10*3/uL Normal 4.4 - 11.3 [facility] Comment on above: Performed By: #### R ENAL #### [facility] [address] [id number] [address] LOWER EXT WO CONTRASTon 0 08-30-2022 CT LOWER EXT WO CONTRAST Patient Name: CHRISTOS LYONS STUDY: CT LOWER EXT WO CONTRAST; Right; 08/30/2022 7:32 pm INDICATION: right knee pain . COMPARISON: Radiographs of the same day ACCESSION NUMBER(S): [id number] ORDERING CLINICIAN: MILES AHN TECHNIQUE: Noncontrast images [...] signed by: KHLOE LYLES MD Normal [facility] CT Low Extremity without Con traston 08-30-2022 CT Lower extremity WO contrast Normal -[facility] Work Phone: Daily Progress Note-Gastroen terologyon 08-30-2022 Daily Progress Note-Gastroenterolog y Service: Gastroenterology Subjective Data: CHRISTOS LYONS is a 77 year old Male who is Hospital Day # 3. Patient has ongoing dysphagia. Tolerating liquids/apple sauce. Objective Data: Objective Information: T PRBPMAPSpO2 Value36.11797560/7195% Date/Time08/30 11:5808/30 11:5808/30 11:5808/30 11:5808/30 11:58 Range(36.2C [...] about (more content not included)... Normal [facility] Daily Progress Note-Medicine on 08-30-2022 Daily Progress Note-Medicine Service: Medicine Subjective Data: CHRISTOS LYONS is a 77 year old Male who is Hospital Day # 3. Brother says he seems more sleepy today. He is having some looser stools. Objective Data: Objective Information: T PRBPMAPSpO2 Value36.02137461/7195% Date/Time08/30 11: 11: 11: 11: 11:58 Range(36.2C [...] Last Updated: 30-Aug-2022 12:32 by Miles Ahn) Normal [facility] Daily Progress Note-Nephrolo gyon 08-30-2022 Daily Progress Note-Nephrology Service: Nephrology Subjective Data: CHRISOTS LYONS is a 77 year old Male who is Hospital Day # 3. Seen and examined. Sitting upright in bed. No acute events, he does not offer new complaints. Chart/labs/meds/notes/imag ing/VS reviewed. Objective Data: Objective Information: T PRBPMAPSpO2 Value36.55939283/7195% Date/Time08/30 11: 11: 11: 11: 11:58 Range(36.2C [...] detection. (more content not included)... Normal [facility] Daily Progress Note-Pulmonol asia 08-30-2022 Daily Progress Note-Pulmonology Service: Pulmonology Subjective Data: CHRISTOS LYONS is a 77 year old Male who is Hospital Day # 3. S: Denies shortness of breath, pain or cough. On room air. EGD for today has been canceled. Objective Data: Objective Information: T PRBPMAPSpO2 Value36.67131424/7196% Date/Time08/30 8: 8: 8: 8: 8:01 Range(36.2C [...] Last Updated: 30-Aug-2022 11:16 by Khang Wagner) [facility] Discharge [id number] 023 Discharge Profile2 Discharge Orders: Anticipated Discharge Date: Anticipated Discharge [id number] Anticipated Discharge Time09:08 DNAR: Code Status at Discharge: DNAR Was Extending the DNAR Status Following Discharge Discussed w/ Patient/Family: n/a- patient already has a completed DNR State Form [place] DNR State Form Status: DNR Comfort Care Arrest Activity: activity as tolerated. May shower. Diet: Dietlow sodium Fluid Restriction1.5L Labs 1: Lab Test(s)CBC, Comprehensive Metabolic Panel Date To Be Drawn09/06/2022 Fax Results Satya Maynard, #[phone] Gold Form Orders: Care Recommendation: I recommend that INPATIENT care is required at:Skilled Provider CertificationATTENDING: I certify that inpatient care is required at the level recommended above. To the best of my knowledge, all information provided about the individual is a true and accurate reflection of the individual's condition. Attending ProviderCaesar Sal Attending Provider [id number] Therapy Orders: Occupational Therapy OrdersEval and Treat ([facility]) Physical Therapy OrdersEval and Treat ([facility]) Provider Follow Up: Physician To Follow at Skilled/RehabAttending Physician at Skilled/Rehab Provider FINAL REVIEW of Orders: Final Review: Final Review of Medication Reconciliation and Orders Completedby Physician Reviewing ProviderCaesar Sal MD at 04-Sep-2022 09:12:18 Appointments: Follow-Up Appointment 01: Physician/Dept/Service. Malou Bowen - Pulmonary Scheduled Date/Mthh67-Ehb-4261 08:[address], [place] [address] Phone [phone] CommentsPlease wear a mask when entering the [...] Speechclear Painno Elimination: Bladderincontinent Bowelincontinent Last Bowel [id number]-0720 Safety: Siderailsyes Restraintsno Sitterno Medication/Hygiene/Mobilit y: Medication Administrationassist Bathingassist Dressingassist Bed Mobilityassist Wheelchairassist Transfersassist Ambulationassist Electronic Signatures: Taj Vasquez (PT ACC REP) (Signed 30-Aug-2022 16:14) Authored: Discharge Orders, Appointments, Gold Form - Tank Car Reconditioner Summary Ros Rowe (PT SVS REP) (Signed 07-Sep-2022 09:19) Authored: Discharge Orders, Appointments Caesar Sal) (Signed 04-Sep-2022 09:12) Authored: Discharge Orders, Gold Form Orders, Provider FINAL REVIEW of Orders, Appointments Alysa Douglas (REGULO) (Signed 04-Sep-2022 10:55) Authored: Discharge Orders, Gold Form - Nursing Summary Last Updated: 07-Sep-2022 09:19 by Ros Rowe (PT SVS REP) Normal [facility] HEMOGLOBIN A1Con 08-30-2022 Glucose [Mass/Vol] 134 mg/dL Normal [facility] Comment on above: Performed By: #### V TB12 #### [facility] [address] [place] [address] HbA1c (Bld) [Mass fraction] 6.3 % Abnormal [facility] Comment on above: Result Comment: Diag nosis of Diabetes-Adults Non-Diabetic: < or = 5.6% Increased risk for developing diabetes: 5.7-6.4% Diagnostic of diabetes: > or = 6.5% . Monitoring of Diabetes Age (y) Therapeutic Goal (%) Adults: >18 <7.0 Pediatrics: 13-18 <7.5 7-12 <8.0 0- 6 7.5-8.5 [employer]. Diabetes Care 33(S1), May 2009. Performed By: #### V TB12 #### [facility] [address] [place] [address] HEPATIC FUNCTION PANELon Albumin [Mass/Vol] 3.3 g/dL Low 3.4 - 5.0 [facility] Comment on above: Performed By: #### V TB12 #### [facility] [address] [place] [address] ALP [Catalytic activity/Vol] 164 U/L High 33 - 136 [facility] Comment on above: Performed By: #### V TB12 #### [facility] [address] [place] [address] ALT [Catalytic activity/Vol] 47 U/L Normal 10 - 52 [facility] Comment on above: Result Comment: Raysa ents treated with Sulfasalazine may generate falsely decreased results for ALT. Performed By: #### V TB12 #### [facility] [address] [place] [address] AST [Catalytic activity/Vol] 144 U/L High 9 - 39 [facility] Comment on above: Performed By: #### V TB12 #### [facility] [address] [place] [address] Bilirubin [Mass/Vol] 3.5 mg/dL High 0.0 - 1.2 [facility] Comment on above: Performed By: #### V TB12 #### [facility] [address] [place] [address] Bilirubin.indirect [Mass/Vol] 2.0 mg/dL High 0.0 - 0.3 [facility] Comment on above: Performed By: #### V TB12 #### [facility] [address] [place] [address] Protein [Mass/Vol] 5.8 g/dL Low 6.4 - 8.2 [facility] Comment on above: Performed By: #### V TB12 #### [facility] [address] [place] [address] HEPATITIS PANEL,ACUTE (HCFA) on 08-30-2022 HEPATITIS A AB-IGM Non-Reactive Normal NONREACTIVE [facility] Comment on above: Result Comment: Biot in interference may cause falsely decreased results. Patients taking a Biotin dose of up to 5 mg/day should refrain from taking Biotin for 24 hours before sample collection. Providers may contact their local laboratory for further information. Performed By: #### M G #### [facility] [address] [place] [address] HEPATITIS B CORE AB,IGM Non-Reactive Normal NONREACTIVE [facility] Comment on above: Result Comment: Resu lts from patients taking biotin supplements or receiving high-dose biotin therapy should be interpreted with caution due to possible interference with this test. Providers may contact their local laboratory for further information. Performed By: #### M G #### [facility] [address] [id number] HEPATITIS C AB Non-Reactive Normal NONREACTIVE [facility] Comment on above: Result Comment: Resu lts from patients taking biotin supplements or receiving high-dose biotin therapy should be interpreted with caution due to possible interference with this test. Providers may contact their local laboratory for further information. Performed By: #### M G #### [facility] [address] [id number] HEP.B SURFACE AG Non-Reactive Normal NONREACTIVE [facility] Comment on above: Result Comment: Biot in interference may cause falsely decreased results. Patients taking a Biotin dose of up to 5 mg/day should refrain from taking Biotin for 24 hours before sample collection. Providers may contact their local laboratory for further information. Performed By: #### M G #### [facility] [address] [id number] Lab Specimen Source Normal [facility] Comment on above: Performed By: #### M G #### [facility] [address] [id number] Hemoglobin A1Con 08-30-2022 Glucose [Mass/Vol] 134 mg/dL -[facility] Work Phone: HbA1c (Bld) [Mass fraction] 6.3 % Abnormal -[facility] Work Phone: Comment on above: Diagnosis of Diabete s-Adults Non-Diabetic: < or = 5.6% Increased risk for developing diabetes: 5.7-6.4% Diagnostic of diabetes: > or = 6.5%. Monitoring of Diabetes Age (y) Therapeutic Goal (%) Adults: >18 <7.0 Pediatrics: 13-18 <7.5 7-12 <8.0 0- 6 7.5-8.5 [employer]. Diabetes Care 33(S1), May 2009. Hepatic Function Panelon Albumin BCP dye [Mass/Vol] 3.3 g/dL below low threshold 3.4 - 5.[address] [facility] Trellie Work Phone: ALP [Catalytic activity/Vol] 164 U/L above high threshold 33 - 136 [facility] Work Phone: ALT With P-5'-P [Catalytic activity/Vol] 47 U/L 10 - 52 [facility] Work Phone: Comment on above: Patients treated wit h Sulfasalazine may generate falsely decreased results for ALT. AST With P-5'-P [Catalytic activity/Vol] 144 U/L above high threshold 9 - 39 [facility] Work Phone: Bilirubin [Mass/Vol] 3.5 mg/dL above high threshold 0.0 - 1.2 [facility] Work Phone: Bilirubin.direct [Mass/Vol] 2.0 mg/dL above high threshold 0.0 - 0.3 [facility] Work Phone: Protein [Mass/Vol] 5.8 g/dL below low threshold 6.4 - 8.2 [facility] Work Phone: Hepatitis Panel, Acute (HCFA )on 08-30-2022 HAV IgM IA Ql Non-Reactive See Below [facility] Trellie Work Phone: Comment on above: SOURCE: Reference nge: NONREACTIVE Biotin interference may cause falsely decreased results. Patients taking a Biotin dose of up to 5 mg/day should refrain from taking Biotin for 24 hours before sample collection. Providers may contact their local laboratory for further information. Hepatitis Panel, Acute (HCFA) Non-Reactive See Below [facility] Work Phone: Comment on above: Reference Range: [...] 161 mg/dL Normal 0 - 199 [facility] Comment on above: Result Comment: . AGE [...] dosing. Performed By: #### V TB12 #### [facility] [address] [place] [address] Cholesterol in HDL [Mass/Vol] 62.4 mg/dL Normal [facility] Comment on above: Result Comment: . AGE VERY LOW LOW NORMAL HIGH 0-19 Y < 35 < 40 40-45 ---- 20-24 Y ---- < 40 >45 ---- >24 Y ---- < 40 40-60 >60 . Performed By: #### V TB12 #### [facility] [address] [place] [address] Cholesterol in LDL [Mass/Vol] 56 mg/dL Normal 0 - 99 [facility] Comment on above: Result Comment: . NEAR BORD AGE DESIRABLE OPTIMAL HIGH HIGH VERY HIGH 0-19 Y 0 - 109 --- 110-129 >/= 130 ---- 20-24 Y 0 - 119 --- 120-159 >/= 160 ---- >24 Y 0 - 99 100-129 130-159 160-189 >/=190 . Performed By: #### V TB12 #### [facility] [address] [place] [address] Cholesterol in VLDL [Mass/Vol] 43 mg/dL High 0 - 40 [facility] Comment on above: Performed By: #### V TB12 #### [facility] [address] [place] [address] Cholesterol.total/Ch olesterol in HDL [Mass ratio] 2.6 {ratio} Normal [facility] Comment on above: Result Comment: REF VALUES DESIRABLE < 3.4 HIGH RISK > 5.0 Performed By: #### V TB12 #### [facility] [address] [place] [address] NON-HDL CHOLESTEROL 99 mg/dL Normal [facility] Comment on above: Result Comment: AGE DESIRABLE BORDERLINE HIGH HIGH VERY HIGH 0-19 Y 0 - 119 120 - 144 >/= 145 >/= 160 20-24 Y 0 - 149 150 - 189 >/= 190 ---- >24 Y 30 MG/DL ABOVE LDL CHOLESTEROL GOAL . Performed By: #### V TB12 #### [facility] [address] [place] [address] Triglyceride [Mass/Vol] 213 mg/dL High 0 - 149 [facility] Comment on above: Result Comment: . AGE [...] Performed By: #### V TB12 #### [facility] [address] [place] [address] Laboratory - Chemistry and C hemistry - challengeon 08-30-2022 Anion gap [Moles/Vol] 11 mmol/L 10 - 20 [facility] Work Phone: Calcium [Mass/Vol] 7.7 mg/dL below low threshold 8.6 - 10.3 [facility] Work Phone: Chloride [Moles/Vol] 80 mmol/L below low threshold 98 - 107 [facility] Work Phone: CO2 [Moles/Vol] 31 mmol/L 21 - 32 [facility] Work Phone: Creatinine [Mass/Vol] 0.47 mg/dL below low threshold See Below [facility] Work Phone: Comment on above: Reference Range: 0.5 0 - 1.30 Glucose [Mass/Vol] 109 mg/dL above high threshold 74 - 99 [facility] Work Phone: Potassium [Moles/Vol] 3.2 mmol/L below low threshold 3.5 - 5.3 [facility] Work Phone: Sodium [Moles/Vol] 119 mmol/L Critically low 136 - 145 [facility] Work Phone: Comment on above: SOD CALLED RB TO JJ MOHAN, 08/30/2022 08:10 TSH Qn 8.58 m[IU]/L above high threshold See Below [facility] Work Phone: Comment on above: Reference Range: 0.4 4 - 3.98 TSH testing is performed using different testing methodology at [facility] than at other [facility]. Direct result comparisons should only be made within the same method. Urea nitrogen [Mass/Vol] 9 mg/dL 6 - 23 [facility] Work Phone: Laboratory - Hematology and Cell countson 08-30-2022 Erythrocyte distribution width (RBC) [Ratio] 13.9 % See Below [facility] Work Phone: Comment on above: Reference Range: 11. 5 - 14.5 Hematocrit (Bld) [Volume fraction] 28.4 % below low threshold See Below [facility] Work Phone: Comment on above: Reference Range: 41. 0 - 52.0 Hemoglobin (Bld) [Mass/Vol] 10.2 g/dL below low threshold See Below [facility] Work Phone: Comment on above: Reference Range: 13. 5 - 17.5 MCHC (RBC) [Mass/Vol] 35.9 g/dL See Below [facility] Work Phone: Comment on above: Reference Range: 32. 0 - 36.0 MCV (RBC) [Entitic vol] 97 fL 80 - 100 [facility] Work Phone: Platelets (Bld) [#/Vol] 118 10*3/uL below low threshold 150 - 450 [facility] Work Phone: Comment on above: Platelet count may b e higher than reported due to presence of PlateletClumps. RBC (Bld) [#/Vol] 2.93 {x10E12/L} below low threshold See Below [facility] Work Phone: Comment on above: Reference Range: 4.5 0 - 5.90 WBC (Bld) [#/Vol] 7.0 10*3/uL 4.4 - 11.3 [facility] Work Phone: Lipid Panelon 08-30-2022 Cholesterol [Mass/Vol] 161 mg/dL 0 - 199 [facility] Work Phone: Comment on above: . AGE [...] dosing. Cholesterol in HDL [Mass/Vol] 62.4 mg/dL [facility] Work Phone: Comment on above: . AGE VERY LOW LOW N ORMAL HIGH 0-19 Y < 35 < 40 40-45 ---- 20- 24 Y ---- < 40 >45 ---- >24 Y ---- < 40 40-60 >60. Cholesterol in LDL [Mass/Vol] 56 mg/dL 0 - 99 [facility] Work Phone: Comment on above: . NEAR BORD AGE LORENA RABLE OPTIMAL HIGH HIGH VERY HIGH 0-19 Y 0 - 109 --- 110-129 >/= 130 ---- 20-24 Y 0 - 119 --- 120-159 >/= 160 ---- >24 Y 0 - 99 100-129 130-159 160-189 >/=190. Cholesterol non HDL [Mass/Vol] 99 mg/dL [facility] Work Phone: Comment on above: AGE DESIRABLE BORDER LINE HIGH HIGH VERY HIGH 0-19 Y 0 - 119 120 - 144 >/= 145 >/= 160 20-24 Y 0 - 149 150 - 189 >/= 190 ---- >24 Y 30 MG/DL ABOVE LDL CHOLESTEROL GOAL. Cholesterol.total/Ch olesterol in HDL [Mass ratio] 2.6 {ratio} [facility] [employer] Work Phone: Comment on above: REF VALUESDESIRABLE < 3.4HIGH RISK > 5.0 Triglyceride [Mass/Vol] 213 mg/dL above high threshold 0 - 149 [facility] Work Phone: Comment on above: . AGE [...] mg/dL above high threshold 0 - 40 [facility] Work Phone: MAGNESIUMon 08-30-2022 Magnesium [Mass/Vol] 1.70 mg/dL Normal 1.60 - 2.40 [facility] Comment on above: Performed By: #### V TB12 #### [facility] [address] [place] [address] Magnesium, Serumon 3 Magnesium [Mass/Vol] 1.70 mg/dL See Below [facility] Work Phone: Comment on above: Reference Range: 1.6 0 - 2.40 No Panel Informationon 08-30 >90 >90 [facility] Work Phone: Comment on above: CALCULATIONS OF ROSANA MATED GFR ARE PERFORMED USING THE 2020 CKD-EPI STUDY REFIT EQUATION WITHOUT THE RACE VARIABLE FOR THE IDMS-TRACEABLE CREATININE METHODS.https://jasn.asnjournals.org/content/early/ASN .3116351223 OSMOLALITY, SERUMon 08-31-19 23 OSMOLALITY, SERUM 252 mOsm/kg H2O Low 280 - 300 [facility] Comment on above: Performed By: #### R ENAL #### [facility] [address] [place] [address] OSMOLALITY,URINEon 3 OSMOLALITY,URINE 674 mOsm/kg Normal 200 - 1200 [facility] Comment on above: Performed By: #### R ENAL #### [facility] [address] [place] [address] OSMOLALITY,URINE SPOTon 08-08 OSMOLALITY,URINE SPOT Canceled Normal [facility] Comment on above: Order Comment: TEST OSMOLALITY,URINE SPOT WAS CANCELLED, 08/30/2022 05:35 DUPLICATE ORDERsee [id number]. Performed By: #### G ZOHREH #### [facility] [address] [place] [address] Osmolality, Serumon 08-31-19 23 Osmolality [Osmolality] 252 {mOsm/kg_H2O} below low threshold 280 - 300 -[facility] Work Phone: PHOSPHORUSon 08-30-2022 Phosphate [Mass/Vol] 1.2 mg/dL Low 2.5 - 4.9 [facility] Comment on above: Result Comment: The performance characteristics of phosphorus testing in heparinized plasma have been validated by the individual laboratory site where testing is performed. Testing on heparinized plasma is not approved by the FDA; however, such approval is not necessary. Performed By: #### R ENAL #### [facility] [address] [place] [address] Phosphorus, Serumon 08-31-19 23 Phosphate [Mass/Vol] 1.2 mg/dL below low threshold 2.5 - 4.9 -[facility] Work Phone: Comment on above: The performance fransisca acteristics of phosphorus testing in heparinized plasma have been validated by the individual laboratory site where testing is performed. Testing on heparinized plasma is not approved by the FDA; however, such approval is not necessary. Radiologyon 08-30-2022 XR Knee 1 or 2 Views Normal [facility] Work Phone: Rehab Dehy-ol-nkutgxwjtlk Rehab Erlx-oc-xdaazbccd Rehab: Info: Disciplineoccupational therapist Mode of Treatmentco-treatment Time IN13:57 Time OUT14:15 Total Treatment [id number] Total Minutes Commentco-treatment with PT to maximize [...] lling left; rolling right; scooting/bridging Roll Left [place] (Bed Mobility)2 person assist; dependent (less than 25% patient effort) Roll Right [place] (Bed Mobility)2 person assist Scoot/Bridge [place] (Bed Mobility)dependent (less than 25% patient effort); 2 person assist Comment, Bed MobilityTotal A x2 for rolling left/right and for positioning trunk closer to HOB with use of draw sheet. VCs for positioning and UE placement to assist with bed mobility. ADL: BADL Assessment/Interventionlow er body dressing; toileting [place] Level (Lower Body Dressing)dependent (less than 25% patient effort) Comment (Lower Body Dressing)Total A for donning yoandy socks due to fatigue and decreased mobility. [place] Level (Toileting)2 person assist; dependent (less than [...] such as brushing teetha little Eating Mealsa billy AM-PAC (OT) Total Score10 Short Term Goals: Bed Mobility: Date [id number] Bed Mobility: [place] Level Goalmaximum assist (25% patients effort) Bed Mobility: Physical Assist Level Goal1-person assist Bed Mobility: Time Frame for Goal2 wks Transfer: Established Transfer: Transfer Type Goaltoilet Transfer: [place] Level Goalmaximum assist (25% patients effort) Transfer: [...] Frame for Goal2 wks Grooming: Established Grooming: [place] Level Goalmodified independent Grooming: Physical Assist Level Goal1-person assist Grooming: Time Frame for Goal2 wks Upper Body Dressing: Established Upper Body Dressing: [place] Level Goalmoderate assist (50% patients effort) Upper Body Dressing: Physical Assist Level Goal1-person assist Upper Body Dressing: Time Frame for Goal2 wks Lower Body Dressing: Established Lower Body Dressing: [place] Level Goalmaximum assist (25% patients effort) Lower Body Dressing: Physical Assist Level Goal1-person (more content not included)... Normal [facility] Rehab Note-physical therapist - Co treat with AMBER Regalado 08-30-2022 Rehab Note-physical therapist - Co treat with AMBER Bertrand Rehab: Info: Disciplinephysical licensed physical therapy assistant; Co treat with OT Jorge Armstrong to maximize pt participation. Participated in performance of tx and documentation under the direct supervision of CI, student Prudencio WINN Mode of Treatmentco-treatment; physical therapy Time IN13:55 Time OUT14:15 Total Treatment [id number] Patient in ... at end of sessionbed, [...] mobility activities; rolling right; rolling left; scooting/bridging [place] (Bed Mobility)dependent (less than 25% patient effort); 2 person assist; set up Roll Left [place] (Bed Mobility)dependent (less than 25% patient effort); 2 person assist; set up Roll Right [place] (Bed Mobility)dependent (less than 25% patient effort); 2 person assist Scoot/Bridge [place] (Bed Mobility)dependent (less than 25% patient effort); [...] Score6 Short Term Goals: Bed Mobility: Date [id number] Bed Mobility: [place] Level Goalminimum assist (75% patients effort) Bed Mobility: Time Frame for Goal2 wks Transfer: Established [id number] Transfer: Transfer Type Dveflsp-bh-nypgw/chair-to- bed; itw-yq-fwvpd/wbggq-yy-fwv Transfer: [place] Level Goalminimum assist (75% patients effort) Transfer: Assistive Device Goalrolling walker Transfer: Time Frame for Goal2 wks Gait: Established [id number] Gait: [place] Level Goalmodified independent Gait: Assistive Device Goalrolling [...] Short Term Goals, DC Recommendations Davis Goldberg (CABINET WORKER) (Signed 30-Aug-2022 16:04) Authored: Info, Mobility/Tone, Sensory, Outcomes Tools, Short Term Goals, DC Recommendations Linh Taveras (PT) (Signed 30-Aug-2022 16:37) Co-Signer: Info, Mobility/Tone, Sensory, Outcomes Tools, Short Term Goals, DC Recommendations Last Updated: 30-Aug-2022 16:37 by Linh Taveras (PT) Normal [facility] Swallow Evaluation v2-Bedsid e Clinical Swallow, SLPon 08-30-2022 Swallow Evaluation v2-Bedside Clinical Swallow, SCOOTER MECHANIC Rehab: Info: Time IN10:40 Time OUT10:57 Total Treatment [id number] Patient in ... at end of sessionbed, 2 railings up Communicated with ... at end of sessionbedside nurse; physician; JORDYN Hooks, Brother Evaluation TypeBedside Clinical Swallow, SCOOTER MECHANIC Patient Effortadequate Symptoms Noted During/After Treatmentweakness -fatigue; fatigue Patient Profile Reviewedyes Onset of Illness/Injury or Date of [id number] Reason for Referralswallowing consult Referring PhysicianSalomone Patient/Family/Caregiver Comments/ObservationsBroth er in room with pt not tolerating solids x5 days. General Observations of PatientAlert, 0x3 , very weak and c/o a globus sensation in the mid esophogeal region. Per the pt - poor swallowing with solids x 2 months Pertinent History of Current Functional [id number] y/o admit to [facility] from home with c/o PO solids sticking [...] endurance; swallowing Developmental Statusindependent, age appropriate Impression: SCOOTER MECHANIC Swallowing Diagnosisoral dysfunction; Pt edentulous and weak, [...] safe for the Full liquid diet and SCOOTER MECHANIC to follow with ongoing reassessments pending EGD results. Rehab Potential/Prognosis (Swallow Eval)good, to achieve stated therapy goals Speech Therapy RecommendationsContinue Full Liquid diet Crushed meds SCOOTER MECHANIC to follow for a re-evaluation post EGD results -recs if indicated. Criteria for Skilled Therapeutic Interventions Met (Swallow Eval)yes; treatment indicated SCOOTER MECHANIC Diet RecommendationsFull liquid diet SCOOTER MECHANIC Liquid Consistency RecommendationsThin 0 (Regular thin) Recommended [...] Dysphag (more content not included)... Normal [facility] T4 - Free Thyroxine, Serumon 08-30-2022 Free T4 [Mass/Vol] ng/dL below low threshold See Below [facility] Work Phone: Comment on above: Reference Range: 0.6 1 - 1.12 Thyroxine Free testing is performed using different testing methodology at [facility] than at other [facility]. Direct result comparisons should only [...] THYROXINE,FREE <0.25 Low 0.61 - 1.12 [facility] Comment on above: Result Comment: Thyr oxine Free testing is performed using different testing methodology at [facility] than at other [facility]. Direct result comparisons should only [...] draw. Performed By: #### V TB12 #### [facility] [address] [place], [place] TSH WITH REFLEX TO FREE T4 I F ABNORMALon 08-30-2022 TSH Qn 8.58 m[IU]/L High 0.44 - 3.98 [facility] Comment on above: Result Comment: TSH testing is performed using different testing methodology at [facility] than at other [facility]. Direct result comparisons should only be made within the same method. Performed By: #### V TB12 #### [facility] [address] [place] [address] ALCOHOLon 08-29-2022 Ethanol [Mass/Vol] mg/dL Normal [facility] Comment on above: Result Comment: FOR MEDICAL USE ONLY. . REF VALUES <10 Performed By: #### M G #### [facility] [address] [place] [address] AMMONIAon 08-29-2022 Ammonia (P) [Moles/Vol] 44 umol/L Normal [facility] Comment on above: Result Comment: . REFERENCE VALUES DAY 1 to DAY 7 <110 DAY 8 to DAY 14 < 90 DAY 15 to ADULT 16-53 Performed By: #### A ####[facility] [id number] [place] [address] Admission Risk Screen - Adul ton 08-29-2022 [...] AlertFor Ebola-like Symptoms: Isolate Patient and Notify Provider/Ceramic Artist For Contact: Notify Provider/Ceramic Artist Advance Directive: Advance Directive/DNRyes Advance Directive typeDurable Power of Licensed Funeral Director for Healthcare Durable Power of Licensed Funeral Director AvailabilityDPOA not available now Durable Power of Licensed Funeral Director [id number] Durable Power of Licensed Funeral Director contact (name and number)Corwin [phone] Ayala Fall Screen: History of falling (immediate [...] Communicateglasses Learning Preferencesverbal instruction Cultural Considerationscultural considerations shinto Developmental Considerationsnone Samaritan Considerationsreligious considerations shinto Learning Assessment (Other Learner): Other learner availableno Depression Screen: During the past month, have you often been bothered by feeling down, depressed or hopelessno During the past month, have you often had little interest or pleasure in doing thingsno Have you had any thoughts of harming anyone elseno (1) [place] Suicide: Risk Screen Not Applicable/Able to Answerable to be screened In the Past Month: Have you wished you were or could go to sleep and not wake upno(1) In the Past Month: Have you had any actual thoughts of killing yourself no(1) Lifetime: Have you ever done, started to do, or prepared to do anything to end your lifeno [place] Suicide Risknegative Adult Nutrition Screen: Have you [...] Spiritual Screen: Are there any cultural, spiritual, restorationist practices/values/needs that are important for us to knowyes cath (more content not included)... Normal [facility] Ammonia, Plasmaon 08-29-2022 Ammonia (P) [Moles/Vol] 44 umol/L [facility] Work Phone: Comment on above: .REFERENCE VALUESDAY 1 to DAY 7 <110DAY 8 to DAY 14 < 90DAY 15 to ADULT 16-53 BILIRUBIN,DIRECTon 3 Bilirubin.indirect [Mass/Vol] 2.3 mg/dL High 0.0 - 0.3 [facility] Comment on above: Performed By: #### D BILI ####[facility] [id number] Bilirubin, Serum Direct - Co njugatedon 08-29-2022 Bilirubin.direct [Mass/Vol] 2.3 mg/dL above high threshold 0.0 - 0.3 [facility] Work Phone: COMPREHENSIVE PANELon 2022 Albumin [Mass/Vol] 3.5 g/dL Normal 3.4 - 5.0 [facility] Comment on above: Performed By: #### C MP ####[id number] [place] [address] ALP [Catalytic activity/Vol] 158 U/L High 33 - 136 [facility] Comment on above: Performed By: #### C MP ####[id number] [place] [address] ALT [Catalytic activity/Vol] 45 U/L Normal 10 - 52 [facility] Comment on above: Result Comment: Raysa ents treated with Sulfasalazine may generate falsely decreased results for ALT. Performed By: #### C MP ####[id number] [place] [address] Anion gap [Moles/Vol] 15 mmol/L Normal 10 - 20 [facility] Comment on above: Performed By: #### C MP ####[facility] [id number] [place] [address] AST [Catalytic activity/Vol] 136 U/L High 9 - 39 [facility] Comment on above: Performed By: #### C MP ####[facility] [id number] [place] [address] Bilirubin [Mass/Vol] 4.4 mg/dL High 0.0 - 1.2 [facility] Comment on above: Performed By: #### C MP ####[id number] [place] [address] Calcium [Mass/Vol] 8.0 mg/dL Low 8.6 - 10.3 [facility] Comment on above: Performed By: #### C MP ####[facility] [id number] [place] [address] Chloride [Moles/Vol] 82 mmol/L Low 98 - 107 [facility] Comment on above: Performed By: #### C MP ####[facility] [id number] [place] [address] Creatinine [Mass/Vol] 0.43 mg/dL Low 0.50 - 1.30 [facility] [facility] Comment on above: Performed By: #### C MP ####[facility] [id number] [place] [address] eGFR MALE >90 Normal >90 [facility] Comment on above: Result Comment: CALC ULATIONS OF ESTIMATED GFR ARE PERFORMED USING THE 2020 CKD-EPI STUDY REFIT EQUATION WITHOUT THE RACE VARIABLE FOR THE IDMS-TRACEABLE CREATININE METHODS. https://jasn.asnjournals.org/content/early/ASN.1670449 988 Performed By: #### C MP ####[facility] [id number] [place] [address] Glucose [Mass/Vol] 115 mg/dL High 74 - 99 [facility] Comment on above: Performed By: #### C MP ####[facility] [id number] [place] [address] HCO3 (Bld) [Moles/Vol] 29 mmol/L Normal 21 - 32 [facility] Comment on above: Performed By: #### C MP ####[facility] [id number] [place] [address] Potassium [Moles/Vol] 3.2 mmol/L Low 3.5 - 5.3 [facility] Comment on above: Performed By: #### C MP ####[facility] [id number] [place] [address] Protein [Mass/Vol] 6.0 g/dL Low 6.4 - 8.2 [facility] Comment on above: Performed By: #### C MP ####[facility] [id number] [place] [address] Sodium [Moles/Vol] 123 mmol/L Low 136 - 145 [facility] Comment on above: Performed By: #### C MP ####[facility] [id number] [place] [address] Urea nitrogen [Mass/Vol] 10 mg/dL Normal 6 - 23 [facility] Comment on above: Performed By: #### C MP ####[facility] [id number] [place] [address] CREATINE KINASEon 08-29-2022 CK [Catalytic activity/Vol] 376 U/L High 0 - 325 [facility] Comment on above: Performed By: #### R ENAL #### [facility] [address] [place] [address] Consult-Gastroenterologyon 0 08-29-2022 Consult-Gastroentero logy Service: Service: [...] Known Allergies: Objective: Objective Information: T PRBPMAPSpO2 Value36.21013264/5695% Date/Time08/29 11: 11: 11: 11: 11:49 Range(36.2C [...] or (more content not included)... Normal [facility] Consult-Nephrologyon 023 Consult-Nephrology Service: Service: Nephrology Consult: [...] Known Allergies: Objective: Objective Information: T PRBPMAPSpO2 Value36.38331941/5695% Date/Time08/29 11: 11: 11: 11: 11:49 Range(36.2C [...] 06 (more content not included)... Normal [facility] Consult-Pulmonologyon 2022 Consult-Pulmonology Service: Service: Pulmonology Consult: Consult requested by (Attending Name): Polo Sanchez Reason: On [facility] bone density History of Present Illness: Admission [...] mildly elevated LA and BNP. Admitted to [facility] for further management. CT revealed a [...] Known Allergies: Objective: Objective Information: T PRBPMAPSpO2 [id number]/5896% Date/Time08/29 8: 8: 8: 8: 8:00 Range(36.2C [...] Comprehen (more content not included)... Normal [facility] Creatine Kinase, Levelon CK [Catalytic activity/Vol] 376 U/L above high threshold 0 - 325 -[facility] Work Phone: Discharge Planning Wupq6pw 0 08-29-2022 Discharge Planning Note2 Discharge Planning: Discharge Barriersmedical Planned Dispositionhome Discharge DestinationTBD Discharge [facility] [place] of Choice Explainedyes preference Anticipated Discharge [id number] Discharge Planning 08/29/22 0800am Patient admitted for dysphagia, GI and Speech on to evaluate. Patient also complains of weakness at this time. Will continue to follow for possibel [facility] for DC planning. Lorrie Parekh RN, BSN, TCC 08/30/2022 1000 met with patient brother at bedside Corwin [phone] /POA he is requesting a DNR status, [...] asked me to send referrals to 1) [facility] 2) [facility] 3) [facility] 4) [facility]. I requested CNC to send. I will follow up with bed availability. Alysa Brewer [facility] 08/31/2022 1140 DSC: Built and sent SNF referral to [facility], [facility], [facility] and [facility], awaiting a response. Zeina Weller Discharge Field Control Inspector 08/31/2022 4:23 PM Message left for brother to discuss discharge plans. Alysa Brewer [facility] 08/31/2022 4:40 PM I spoke with patient's brother. He said [facility] is [facility]. Alysa Brewer [employer]EEPER CLE[employer] 09/01/2022 900 DSC: Updates sent to [facility]. Zeina Weller Discharge Field Control Inspector 09/02/2022 844 DSC: Updates sent to [facility]. Zeina Weller Discharge Field Control Inspector 09/02/2022 planned GED today, continued with IV [...] bed availability at SNF. He said that [facility] is ok if bed is not available at [facility]. Alysa Brewer [employer] SWEE[employer] CLE[employer] 09/03/2022 15:13 PCN: Completed and submitted new auth for pt to go to [facility]. Pt has auth to admit. Relayed to team and sent the following message to the SNF via [employer]: Pt has auth to admit! AMY ID: [id number] 09/03-09/07 Updates due 09/07 Brenda is procurement engineer fax updates to: [phone] Thanks! Trang [phone] [place] 09/03/2022 met with patient at bedside encouraged him to participate in his therapy to get better, patient brother at bedside agreeable, Planned discharge to n 1-2 days Mirian JENKINS,RN,[facility] 09/03/2022 3:48 PM Brother notified that transport has been requested for a Tuesday discharge. Alysa Trevinoabigailmelina [facility] 09/03/2022 1642 DSC: Transport confirmed for 12noon picker / packer on 09/04, facility notified. Zeina Weller Discharge Field Control Inspector 09/03/2022 1655 DSC: PAS[facility]. Zeina Weller Discharge Field Control Inspector Assessment: Discharge Planning Assessment [id number] Discharge Planning Assessment Completed byLorrie Parekh RN, BSN, TCC Primary Contact Name and NumberCorwin [phone](1) Prior Level of FunctioningIndependent prior to admission Lives Withalone(1) Living Arrangementshouse(1) Stated Reason for Admissionweakness, unable to eat(1) [place] PCPMattjacqueline Polo Resource/Environmental Concernsnone(1) Anticipated Transition Toinpatient rehabilitation facility(1) Services Anticipated at Transitionrehabilitation services(1) InsuranceUnited Mycare Anticipated Changes Related to Illnessnone Equipment Needed After Dischargenone Anticipated Discharge Facility/Level of Care Needs.Home Discharge Documentation: Discharge Modestretcher Code StatusCode Status order at time of discharge: DNAR Patient already has a completed DNR State Form [place] DNR State Form Status: DNR Comfort Care Arrest Discharge Order Writtenyes [place] DNR Form Sent with Patient and/or Familyno Electronic Signatures: Trang Raymundo (PCN) (Signed 03-Sep-2022 15:13) Authored: Discharge Planning Lorrie Parekh (RN) (Signed 29-Aug-2022 08:04) Author (more content not included)... Normal [facility] EMR ADDONon 08-29-2022 ADDON CONFIRMATION Canceled Normal [facility] Comment on above: Order Comment: TEST EMR ADDON WAS CANCELLED, 08/29/2022 12:53 need sst tube (yellow/red top). Performed By: #### E MRAD ####[facility] [id number] [place] [id number] ADDON CONFIRMATION REQUEST REC'D Normal [facility] Comment on above: Performed By: #### E MRAD ####[facility] [id number] [place] [id number] ADDON CONFIRMATION REQUEST REC'D Normal [facility] Comment on above: Performed By: #### E MRAD ####[facility] [id number] [place] [id number] ADDON CONFIRMATION REQUEST REC'D Normal [facility] Comment on above: Performed By: #### R ENAL #### [facility] [address] [place] [address] LACTATEon 08-29-2022 Lactate [Moles/Vol] 1.5 mmol/L Normal 0.4 - 2.0 [facility] Comment on above: Result Comment: Lisa puncture immediately after or during the administration of Metamizole may lead to falsely low results. Testing should be performed immediately prior to Metamizole dosing. MILD ICTERUS DETECTED. The result may be falsely decreased due to icterus or other interferents. Clinical correlation is recommended. Repeat testing may be considered. Performed By: #### L ACT ####[facility] [place] [id number] Laboratory - Chemistry and C hemistry - challengeon 08-29-2022 Creatinine (U) [Mass/Vol] 178.0 mg/dL See Below [facility] Work Phone: Comment on above: Reference Range: 20. 0 - 370.0 Sodium (U) [Moles/Vol] 32 mmol/L See Below [facility] Work Phone: Comment on above: Reference Range: Not Established Sodium/Creatinine (U) [Ratio] 18 {mmol/g_Creat} See Below [facility] Work Phone: Comment on above: Reference Range: Not Established Albumin BCP dye [Mass/Vol] 3.5 g/dL 3.4 - 5.0 [facility] Work Phone: ALP [Catalytic activity/Vol] 158 U/L above high threshold 33 - 136 [facility] Work Phone: ALT With P-5'-P [Catalytic activity/Vol] 45 U/L 10 - 52 [facility] Work Phone: Comment on above: Patients treated wit h Sulfasalazine may generate falsely decreased results for ALT. Anion gap [Moles/Vol] 15 mmol/L 10 - 20 [facility] Work Phone: AST With P-5'-P [Catalytic activity/Vol] 136 U/L above high threshold 9 - 39 [facility] Work Phone: Bilirubin [Mass/Vol] 4.4 mg/dL above high threshold 0.0 - 1.2 [facility] Work Phone: Calcium [Mass/Vol] 8.0 mg/dL below low threshold 8.6 - 10.3 [facility] Work Phone: Chloride [Moles/Vol] 82 mmol/L below low threshold 98 - 107 [facility] Work Phone: CO2 [Moles/Vol] 29 mmol/L 21 - 32 [facility] Work Phone: Creatinine [Mass/Vol] 0.43 mg/dL below low threshold See Below -[facility] Work Phone: Comment on above: Reference Range: 0.5 0 - 1.30 Glucose [Mass/Vol] 115 mg/dL above high threshold 74 - 99 [facility] Work Phone: Potassium [Moles/Vol] 3.2 mmol/L below low threshold 3.5 - 5.3 -[facility] Work Phone: Protein [Mass/Vol] 6.0 g/dL below low threshold 6.4 - 8.2 [facility] Work Phone: Sodium [Moles/Vol] 123 mmol/L below low threshold 136 - 145 [facility] Work Phone: Urea nitrogen [Mass/Vol] 10 mg/dL 6 - 23 -[facility] Work Phone: Anion gap 4 (BldV) [Moles/Vol] 6 mmol/L below low threshold 10 - 25 -[facility] Work Phone: Base excess Calc (BldV) [Moles/Vol] 9.3 mmol/L above high threshold -2.0 - 3.0 MP-[facility] Work Phone: Calcium.ionized (BldV) [Moles/Vol] 0.98 mmol/L below low threshold See Below MP-[facility] Work Phone: Comment on above: Reference Range: 1.1 0 - 1.33 Chloride (BldV) [Moles/Vol] 82 mmol/L below low threshold 98 - 107 [facility] Work Phone: CO2 (BldV) [Partial pressure] 46 mm[Hg] 41 - 51 -[facility] Work Phone: Glucose [Mass/Vol] 133 mg/dL above high threshold 74 - 99 [facility] Work Phone: HCO3 (Bld) [Moles/Vol] 34.3 mmol/L above high threshold See Below [facility] Work Phone: Comment on above: Reference Range: 22. 0 - 26.0 Lactate (BldV) [Moles/Vol] 3.2 mmol/L above high threshold 0.4 - 2.0 [facility] Work Phone: Oxygen (BldV) [Partial pressure] 27 mm[Hg] below low threshold 35 - 45 [facility] Work Phone: Oxyhemoglobin (BldV) [Mass fraction] 42.2 % below low threshold See Below [facility] Work Phone: Comment on above: Reference Range: 45. 0 - 75.0 pH (BldV) 7.48 [pH] above high threshold See Below [facility] Work Phone: Comment on above: Reference Range: 7.3 3 - 7.43 Potassium (BldV) [Moles/Vol] 3.2 mmol/L below low threshold 3.5 - 5.3 [facility] Work Phone: Sodium (BldV) [Moles/Vol] 119 mmol/L Critically low 136 - 145 [facility] Work Phone: Comment on above: CRIT SOD CALLED RB T O DAVE RILEY., 08/29/2022 03:32 Creatinine (U) [Mass/Vol] 162.0 mg/dL See Below [facility] Work Phone: Comment on above: Reference Range: 20. 0 - 370.0 Sodium (U) [Moles/Vol] 16 mmol/L See Below [facility] Work Phone: Comment on above: Reference Range: Not Established Sodium/Creatinine (U) [Ratio] 10 {mmol/g_Creat} See Below [facility] Work Phone: Comment on above: Reference Range: Not Established Laboratory - Hematology and Cell countson 08-29-2022 Hematocrit Est (Bld) [Volume fraction] 45.0 % See Below [facility] Work Phone: Comment on above: Reference Range: 41. 0 - 52.0 Hemoglobin (Bld) [Mass/Vol] 15.1 g/dL See Below [facility] Work Phone: Comment on above: Reference Range: 13. 5 - 17.5 Lactate, Levelon 08-29-2022 Lactate [Moles/Vol] 1.5 mmol/L 0.4 - 2.0 [facility] Work Phone: Comment on above: Venipuncture immedia tely after or during the administration of Metamizole may lead to falsely low results. Testing should be performed immediately prior to Metamizole dosing.MILD ICTERUS DETECTED. The result may be falsely decreased due to icterusor other interferents. Clinical correlation is recommended. Repeat testingmay be considered. No Panel Informationon 08-29 >90 >90 [facility] Work Phone: Comment on above: CALCULATIONS OF ROSANA MATED GFR ARE PERFORMED USING THE 2020 CKD-EPI STUDY REFIT EQUATION WITHOUT THE RACE VARIABLE FOR THE IDMS-TRACEABLE CREATININE METHODS.https://jasn.asnjournals.org/content//ASN .6837867839 Inhaled oxygen concentration 21 % [facility] Work Phone: OT Evaluation w7-or-ohupzyiu ton 08-29-2022 OT Evaluation j0-uz-[id number] Rehab: Info: Mode of Treatmentco-treatment; occupational therapy Time IN11:11 Time OUT11:45 Total Treatment Eaqgnce75 Total Minutes CommentUntimed eval with PT + [...] none. Onset of Illness/Injury or Date of [id number] Reason for Referralnew documented impairments affecting ADLs Referring PhysicianShapiro General Observations of Patientpt supine in bed upon arrival, family present for session. pt self-limiting and saying I can't move at all however agreeable with encouragement. Pt reporting had a recent fall with R knee pain/swelling. Pertinent History of Current Functional [age]hnyfgk35 year old Male with a past medical history of hypertension, hyperlipidemia, anemia, alcohol use disorder, BPH, anxiety, hypothyroidism, gouty arthritis who presented to [facility] complaining of worsening dysphagia to solid [...] mildly elevated LA and BNP. Admitted to [facility] for further management. CT revealed a [...] to sit; sit to supine; scooting/bridging Scoot/Bridge [place] (Bed Mobility)maximum assist (25% patient effort); 2 person assist; MAX A x2 for lateral scooting towards R side while seated EOB to position self closer to HOB Wgncsk-bd-Vab [place] (Bed Mobility)dependent (less than 25% patient effort); 2 person assist; Total A x2 for managing BLE and trunk Nlo-id-Wpdkyv [place] (Bed Mobility)dependent (less than 25% patient effort); 2 person assist; Total A x2 for managing BLE and trunk Transfer Assessment/Interventionssi t to stand transfer; stand to sit transfer Sit-Stand [place] (Transfers)maximum assist (25% patient effort); 2 person assist; MAX A x2 to ascend from EOB with gait belt, walker and arm and arm assist. required VCs for hand placement Sit-Stand Assistive Device (Transfers)walker, front-wheeled Stand-Sit [place] (Transfers)maximum assist (25% patient effort); 2 person assist Stand-Sit Assistive Device (Transfers)walker, front-wheeled Impairments Impacting Function (Mobility)balance; endurance/activity tolerance; strength; postural/trunk control ADL: BADL Assessment/Interventionlow er body dressing; upper body dressing [place] Level (Upper Body Dressing)maximum assist (25% patient effort) Position (Upper Body Dressing)supine Comment (Upper Body Dressing)MAX A for [facility] gown [place] Level (Lower Body Dressing)dependent (less than 25% patient effort) Comment (Lower Body Dressing)Total A for donning yoandy socks due to decreased strength and mobility Impairments, BADL Safety/Performancebalance; endurance/activity tolerance; strength; pain; trunk/postural control Motor: Sitting, Static (Balance)f (more content not included)... Normal [facility] Osmolality, Urine 24 Houron 08-29-2022 Osmolality (24H U) [Osmolality] 674 {mOsm/kg} 200 - 1200 [facility] Work Phone: Osmolality, Urine Spoton Osmolality (U) [Osmolality] Canceled [facility] Work Phone: PT Evaluation j8-tk-nwfiedya ton 08-29-2022 PT Evaluation u3-ts-piesgbyka Rehab: Info: Mode of Treatmentco-treatment; physical therapy Time IN11:16 Time OUT11:46 Total Treatment Qctbowz95 Total Minutes CommentCo-eval with OT to maximize [...] none. Onset of Illness/Injury or Date of [id number] Reason for Referralnew documented impairments affecting ADLs Referring PhysicianShapiro General Observations of Patientpt supine in bed upon arrival, family present for session. pt self-limiting and saying I can't move at all however agreeable with encouragement. Pt reporting had a recent fall with R knee pain/swelling. Pertinent History of Current Functional Jdcduiz43 year old Male with a past medical history of hypertension, hyperlipidemia, anemia, alcohol use disorder, BPH, anxiety, hypothyroidism, gouty arthritis who presented to [facility] complaining of worsening dysphagia to solid [...] mildly elevated LA and BNP. Admitted to [facility] for further management. CT revealed a [...] to sit; sit to supine; scooting/bridging Scoot/Bridge [place] (Bed Mobility)maximum assist (25% patient effort); 2 person assist; MAX A x2 for lateral scooting towards R side while seated EOB to position self closer to HOB Sqqwww-vq-Fcw [place] (Bed Mobility)dependent (less than 25% patient effort); 2 person assist; Total A x2 for managing BLE and trunk Zra-rc-Whzxmd [place] (Bed Mobility)dependent (less than 25% patient effort); 2 person assist; Total A x2 for managing BLE and trunk Transfer Assessment/Interventionssi t to stand transfer; stand to sit transfer Sit-Stand [place] (Transfers)maximum assist (25% patient effort); 2 person assist; MAX A x2 to ascend from EOB with gait belt, walker and arm and arm assist. required VCs for hand placement Sit-Stand Assistive Device (Transfers)walker, front-wheeled Stand-Sit [place] (Transfers)maximum assist (25% patient effort); 2 person [...] Static (Balance)fair balance Sitting, Dynamic (Balance)poor balance Ovz-it-Bhffi (Balance)poor balance Standing, Static (Balance)poor balance Sensory: Pre-Treatment Pain Rating5/10 Post-Treatment Pain Rating7/10 Pain LocationR knee Health: Observed Emotional Statecooperative Plan of Care Reviewed Withpatient; family Impression: (more content not included)... Normal [facility] Patient Profile - Adult v2on 08-29-2022 Patient Profile - Adult v2 Profile: Initial Info: How to be AddressedDaniel Spoken Language PreferredEnglish Stated Reason for Admissionweakness, unable to eat Primary Contact Name and NumberCorwin [phone] Wants Family/Rep Notified of Admissionyes, primary contact Notify PCPnotify PCP Informed of Patient Visiting Rightsyes [facility] Patient Belongings Remaining with Patientclothing Medications Brought to Hospitalno General Health: Weight in kg70 kilogram(s)(1) Weight in wre782.3 pound(s) Weight Methodactual (measured) Scale Typebed Height in cm177.8 centimeter(s)(1) Height in feet5 feet Height in uzehyb95 inch(es) Height Methodstated BMI (kg/m2)22.142 square meter [...] 1. Vital Signs 28-Aug-2022 17:07 Normal [facility] Provider Note - ED v3on 04-2 Provider Note - ED v3 Provider Note: [...] with (more content not included)... Normal [facility] SODIUM, URINE SPOTon 023 CREATININE,URINE 178.0 mg/dL Normal 20.0 - 370.0 [facility] Comment on above: Performed By: #### M G #### [facility] [address] [place] [address] Sodium (U) [Moles/Vol] 32 mmol/L Normal Not Established [facility] Comment on above: Performed By: #### M G #### [facility] [address] [place] [id number] SODIUM/CREAT RATIO 18 mmol/g Creat Normal Not Established [facility] Comment on above: Performed By: #### M G #### [facility] [address] [place] [id number] CREATININE,URINE 162.0 mg/dL Normal 20.0 - 370.0 [facility] Comment on above: Performed By: #### M G #### [facility] [address] [place] [id number] Sodium (U) [Moles/Vol] 16 mmol/L Normal Not Established [facility] Comment on above: Performed By: #### M G #### [facility] [address] [place] [id number] SODIUM/CREAT RATIO 10 mmol/g Creat Normal Not Established [facility] Comment on above: Performed By: #### M G #### [facility] [address] [place] [id number] UA MICROSCOPICon 08-29-2022 BACTERIA 1+ /HPF Abnormal [facility] Comment on above: Performed By: #### R ENAL #### [facility] [address] [place] [id number] Mucus Ql (Urine sed) 4+ /LPF Normal [facility] Comment on above: Performed By: #### R ENAL #### [facility] [address] [place] [id number] RBC none Normal 0-5 [facility] Comment on above: Performed By: #### R ENAL #### [facility] [address] [place] [id number] SQUAMOUS EPITH. CELLS 1 /HPF Normal [facility] Comment on above: Performed By: #### R ENAL #### [facility] [address] [place] [id number] WBC none Normal 0-5 [facility] Comment on above: Performed By: #### R ENAL #### [facility] CN[address] [place] [address] URINALYSIS WITH CULTURE IF I NDICATEDon 08-29-2022 Appearance (U) CLEAR Normal CLEAR [facility] Comment on above: Performed By: #### V TB12 #### [facility] [address] [place] [address] Bilirubin Ql (U) MODERATE(2+) Abnormal NEGATIVE [facility] Comment on above: Performed By: #### V TB12 #### [facility] [address] [place] [address] Color (U) BROWN Normal STRAW,YELLOW [facility] Comment on above: Performed By: #### V TB12 #### [facility] [address] [place] [address] Glucose Ql (U) Negative Normal NEGATIVE [facility] Comment on above: Performed By: #### V TB12 #### [facility] [address] [place] [address] Hemoglobin Ql (U) TRACE Abnormal NEGATIVE [facility] Comment on above: Performed By: #### V TB12 #### [facility] [address] [place] [address] Ketones Ql (U) 25 (1+) Abnormal NEGATIVE [facility] Comment on above: Performed By: #### V TB12 #### [facility] [address] [place] [address] Leukocyte esterase Test strip Ql (U) Negative Normal NEGATIVE [facility] Comment on above: Performed By: #### V TB12 #### [facility] [address] [place] [address] Nitrite Ql (U) Negative Normal NEGATIVE [facility] Comment on above: Performed By: #### V TB12 #### [facility] [address] [place] [address] pH (U) 6.5 [pH] Normal 5.0 - 8.0 [facility] Comment on above: Performed By: #### V TB12 #### [place] [address] [place] [address] Protein Ql (U) 30 (1+) Abnormal NEGATIVE [facility] Comment on above: Performed By: #### V TB12 #### [facility] [address] [place] [address] Specific gravity (U) [Rel density] 1.025 Normal 1.005 - 1.035 [facility] Comment on above: Performed By: #### V TB12 #### [facility] [address] [place] [address] Urobilinogen (U) [Mass/Vol] mg/dL High 0.0 - 1.9 [facility] Comment on above: Result Comment: SOME PIGMENTS AND MEDICATIONS MAY CAUSE A FALSE POSITIVE UROBILINOGEN Performed By: #### V TB12 #### [facility] [address] [place] [address] Lab Specimen Source Normal [facility] Comment on above: Performed By: #### V TB12 #### [facility] [address] [place] [address] Color (U) BROWN See Below [facility] Work Phone: Comment on above: SOURCE: Reference Ra nge: STRAW,YELLOW Glucose Ql (U) Negative NEGATIVE [facility] [place] Work Phone: Ketones Ql (U) 25 (1+) Abnormal NEGATIVE [facility] [place] Work Phone: Leukocyte esterase Test strip Ql (U) Negative NEGATIVE -[facility] [place] Work Phone: pH (U) 6.5 [pH] 5.0 - 8.0 [facility] [place] Work Phone: Protein (U) [Mass/Vol] 30 (1+) Abnormal NEGATIVE [facility] [place] Work Phone: RBC (U) [#/Vol] TRACE Abnormal NEGATIVE [facility] [place] Work Phone: Specific gravity (U) [Rel density] 1.025 1 See Below [facility] Work Phone: Comment on above: Reference Range: 1.0 05 - 1.035 URINALYSIS WITH CULTURE IF INDICATED Negative NEGATIVE [facility] Work Phone: URINALYSIS WITH CULTURE IF INDICATED >12.0 above high threshold 0.0 - 1.9 [facility] Work Phone: Comment on above: SOME PIGMENTS AND ME DICATIONS MAY CAUSE AFALSE POSITIVE UROBILINOGEN URINALYSIS WITH CULTURE IF INDICATED MODERATE(2+) Abnormal NEGATIVE [facility] [place] Work Phone: URINALYSIS WITH CULTURE IF INDICATED CLEAR CLEAR [facility] Work Phone: Urinalysis, Microscopicon Urinalysis, Microscopic 4+ [facility] Work Phone: Urinalysis, Microscopic 1+ Abnormal [facility] Work Phone: Urinalysis, Microscopic 1 {/HPF} [facility] Work Phone: Urinalysis, Microscopic none 0-5 [facility] Work Phone: VENOUS FULL PANELon 08-30-19 Anion gap [Moles/Vol] 6 mmol/L Low 10 - 25 [facility] Comment on above: Order Comment: CRIT SOD CALLED RB TO DAVE RILEY., 08/29/2022 03:32 Performed By: #### G ZOHREH #### [facility] [address] [place] [address] BASE EXCESS-BLOOD 9.3 mmol/L High -2.0 - 3.0 [facility] Comment on above: Order Comment: CRIT SOD CALLED RB TO DAVE RILEY., 08/29/2022 03:32 Performed By: #### G ZOHREH #### [facility] [address] [place] [address] BICARB, CALCULATED 34.3 mmol/L High 22.0 - 26.0 [facility] Comment on above: Order Comment: CRIT SOD CALLED RB TO DAVE RILEY., 08/29/2022 03:32 Performed By: #### G ZOHREH #### [facility] [address] [place] [address] CALCIUM,IONIZED 0.98 mmol/L Low 1.10 - 1.33 [facility] Comment on above: Order Comment: CRIT SOD CALLED RB TO DAVE RILEY., 08/29/2022 03:32 Performed By: #### G ZOHREH #### [facility] [address] [place] [address] Chloride [Moles/Vol] 82 mmol/L Low 98 - 107 [facility] Comment on above: Order Comment: CRIT SOD CALLED RB TO DAVE RILEY., 08/29/2022 03:32 Performed By: #### G ZOHREH #### [facility] [address] [place] [address] FIO2 21 % Normal [facility] Comment on above: Order Comment: CRIT SOD CALLED RB TO DAVE RILEY., 08/29/2022 03:32 Performed By: #### G ZOHREH #### [facility] [address] [place] [address] Glucose [Mass/Vol] 133 mg/dL High 74 - 99 [facility] Comment on above: Order Comment: CRIT SOD CALLED RB TO DAVE RILEY., 08/29/2022 03:32 Performed By: #### G ZOHREH #### [facility] [address] [place] [address] Hematocrit (Bld) [Volume fraction] 45.0 % Normal 41.0 - 52.0 [facility] Comment on above: Order Comment: CRIT SOD CALLED RB TO DAVE RILEY., 08/29/2022 03:32 Performed By: #### G ZOHREH #### [facility] [address] [place] [address] Hemoglobin (Bld) [Mass/Vol] 15.1 g/dL Normal 13.5 - 17.5 [facility] Comment on above: Order Comment: CRIT SOD CALLED RB TO DAVE RILEY., 08/29/2022 03:32 Performed By: #### G ZOHREH #### [facility] [address] [place] [address] Lactate [Moles/Vol] 3.2 mmol/L High 0.4 - 2.0 [facility] Comment on above: Order Comment: CRIT SOD CALLED RB TO DAVE RILEY., 08/29/2022 03:32 Performed By: #### G ZOHREH #### [facility] [address] [place] [address] OXY HGB 42.2 % Low 45.0 - 75.0 [facility] Comment on above: Order Comment: CRIT SOD CALLED RB TO DAVE RILEY., 08/29/2022 03:32 Performed By: #### G ZOHREH #### [facility] [address] [place] [id number] Oxygen (Bld) [Partial pressure] 27 mm[Hg] Low 35 - 45 [facility] Comment on above: Order Comment: CRIT SOD CALLED RB TO DAVE RILEY., 08/29/2022 03:32 Performed By: #### G ZOHREH #### [facility] [address] [place] [address] PATIENT TEMPERATURE 37.0 degrees C Normal [facility] Comment on above: Order Comment: CRIT SOD CALLED RB TO DAVE RILEY., 08/29/2022 03:32 Result Comment: NOTE : PATIENT RESULTS ARE NOT CORRECTED FOR TEMPERATURE. Performed By: #### G ZOHREH #### [facility] [address] [place] [address] PCO2 46 mmHg Normal 41 - 51 [facility] Comment on above: Order Comment: CRIT SOD CALLED RB TO DAVE RILEY., 08/29/2022 03:32 Performed By: #### G ZOHREH #### [facility] [address] [place] [id number] pH (Bld) 7.48 [pH] High 7.33 - 7.43 [facility] Comment on above: Order Comment: CRIT SOD CALLED RB TO DAVE RILEY., 08/29/2022 03:32 Performed By: #### G ZOHREH #### [facility] [address] [place] [address] Potassium [Moles/Vol] 3.2 mmol/L Low 3.5 - 5.3 [facility] Comment on above: Order Comment: CRIT SOD CALLED RB TO DAVE RILEY., 08/29/2022 03:32 Performed By: #### G ZOHREH #### [facility] [address] [place] [address] SO2 43 % Low 45 - 75 [facility] Comment on above: Order Comment: CRIT SOD CALLED RB TO DAVE RILEY., 08/29/2022 03:32 Performed By: #### G ZOHREH #### [facility] [address] [place] [address] Sodium [Moles/Vol] 119 mmol/L Critically low 136 - 145 [facility] Comment on above: Order Comment: CRIT SOD CALLED RB TO DAVE RILEY., 08/29/2022 03:32 Result Comment: CRIT SOD CALLED RB TO DAVE RILEY., 08/29/2022 03:32 Performed By: #### G ZOHREH #### [facility] [address] [place] [address] Vital signson 08-29-2022 Oxygen saturation in Venous blood 43 % below low threshold 45 - 75 [facility] Work Phone: Alcohol, Serumon 08-28-2022 Ethanol [Mass/Vol] mg/dL [facility] Work Phone: Comment on above: FOR MEDICAL USE ONLY . .REF VALUES <10 BNPon 08-28-2022 Natriuretic peptide B (Bld) [Mass/Vol] 111 pg/mL High 0 - 99 [facility] Comment on above: Result Comment: . <1 00 pg/mL - Heart failure unlikely 100-299 pg/mL - Intermediate probability of acute heart . failure exacerbation. Correlate with clinical . context and patient history. >=300 pg/mL - Heart Failure likely. Correlate with clinical . context and patient history. BNP testing is performed using different testing methodology at [facility] than at other [facility]. Direct result comparisons should only be made within the same method. Performed By: #### M G #### [facility] [address] [place] [id number] CBC AND DIFFERENTIALon 08-28 % AUTOMATED IMMATURE GRAN 0.4 % Normal 0.0 - 0.9 [facility] Comment on above: Result Comment: Robyn ture Granulocyte Count (IG) includes promyelocytes, myelocytes and metamyelocytes but does not include bands. Percent differential counts (%) should be interpreted in the context of the absolute cell counts (cells/L). Performed By: #### G ZOHREH #### [facility] [address] [place] [id number] Basophils (Bld) [#/Vol] 0.04 10*3/uL Normal 0.00 - 0.10 [facility] Comment on above: Performed By: #### G ZOHREH #### [facility] [address] [place] [address] Basophils/100 WBC (Bld) 0.4 % Normal 0.0 - 2.0 [facility] Comment on above: Performed By: #### G ZOHREH #### [facility] [address] [id number] Erythrocyte distribution width (RBC) [Ratio] 14.4 % Normal 11.5 - 14.5 [facility] Comment on above: Performed By: #### G ZOHREH #### [facility] [address] [place] [address] Hematocrit (Bld) [Volume fraction] 32.3 % Low 41.0 - 52.0 [facility] Comment on above: Performed By: #### G ZOHREH #### [facility] [address] [place] [address] Hemoglobin (Bld) [Mass/Vol] 11.6 g/dL Low 13.5 - 17.5 [facility] Comment on above: Performed By: #### G ZOHREH #### [facility] [address] [place] [address] Lymphocytes (Bld) [#/Vol] 0.22 10*3/uL Low 0.80 - 3.00 [facility] Comment on above: Performed By: #### G ZOHREH #### [facility] [address] [place] [address] Lymphocytes/100 WBC (Bld) 2.3 % Normal 13.0 - 44.0 [facility] Comment on above: Performed By: #### G ZOHREH #### [facility] [address] [place] [address] MCHC (RBC) [Mass/Vol] 35.9 g/dL Normal 32.0 - 36.0 [facility] Comment on above: Performed By: #### G ZOHREH #### [facility] [address] [place] [address] MCV (RBC) [Entitic vol] 98 fL Normal 80 - 100 [facility] Comment on above: Performed By: #### G ZOHREH #### [facility] [address] [place] [address] Monocytes (Bld) [#/Vol] 0.29 10*3/uL Normal 0.05 - 0.80 [facility] Comment on above: Performed By: #### G ZOHREH #### [facility] [address] [place] [address] Monocytes/100 WBC (Bld) 3.1 % Normal 2.0 - 10.0 [facility] Comment on above: Performed By: #### G ZOHREH #### [facility] [address] [place] [address] Neutrophils (Bld) [#/Vol] 8.87 10*3/uL High 1.60 - 5.50 [facility] Comment on above: Performed By: #### G ZOHREH #### [facility] [address] [place] [address] Neutrophils/100 WBC (Bld) 93.8 % Normal 40.0 - 80.0 [facility] Comment on above: Performed By: #### G ZOHREH #### [facility] [address] [place] [address] Platelets (Bld) [#/Vol] 141 10*3/uL Low 150 - 450 [facility] Comment on above: Performed By: #### G ZOHREH #### [facility] [address] [place] [id number] RBC 3.30 x10E12/L Low 4.50 - 5.90 [facility] Comment on above: Performed By: #### G ZOHREH #### [facility] [address] [place] [id number] WBC (Bld) [#/Vol] 9.5 10*3/uL Normal 4.4 - 11.3 [facility] Comment on above: Performed By: #### G ZOHREH #### [facility] [address] [phone] COAGULATION SCREENon 023 aPTT Coag (Bld) [Time] 31 s Normal 26 - 39 [facility] Comment on above: Result Comment: THE APTT IS NO LONGER USED FOR MONITORING UNFRACTIONATED HEPARIN THERAPY. FOR MONITORING HEPARIN THERAPY, USE THE HEPARIN ASSAY. Performed By: #### C OAGS #### [facility] [address] [place] [address] PT Coag (PPP) [Time] 10.9 s Normal 9.8 - 13.4 [facility] Comment on above: Performed By: #### C OAGS #### [facility] [address] [place] [phone] PT, INR 0.9 Normal 0.9 - 1.1 [facility] Comment on above: Performed By: #### C OAGS #### [facility] [address] [place] [phone] COMPREHENSIVE PANELon 2022 Albumin [Mass/Vol] 4.2 g/dL Normal 3.4 - 5.0 [facility] Comment on above: Performed By: #### G ZOHREH #### [facility] [address] [place] [address] ALP [Catalytic activity/Vol] 174 U/L High 33 - 136 [facility] Comment on above: Performed By: #### G ZOHREH #### [facility] [address] [place] [address] ALT [Catalytic activity/Vol] 46 U/L Normal 10 - 52 [facility] Comment on above: Result Comment: Raysa ents treated with Sulfasalazine may generate falsely decreased results for ALT. Performed By: #### G ZOHREH #### [facility] [address] [place] [address] Anion gap [Moles/Vol] 19 mmol/L Normal 10 - 20 [facility] Comment on above: Performed By: #### G ZOHREH #### [facility] [address] [place] [address] AST [Catalytic activity/Vol] 127 U/L High 9 - 39 [facility] Comment on above: Result Comment: MILD HEMOLYSIS DETECTED. The result may be falsely elevated due to hemolysis or other interferents. Clinical correlation is recommended. Repeat testing may be considered. Performed By: #### G ZOHREH #### [facility] [address] [place] [address] Bilirubin [Mass/Vol] 4.9 mg/dL High 0.0 - 1.2 [facility] Comment on above: Performed By: #### G ZOHREH #### [facility] [address] [place] [address] Calcium [Mass/Vol] 8.7 mg/dL Normal 8.6 - 10.3 [facility] Comment on above: Performed By: #### G ZOHREH #### [facility] [address] [place] [address] Chloride [Moles/Vol] 79 mmol/L Low 98 - 107 [facility] Comment on above: Performed By: #### G ZOHREH #### [facility] [address] [place] [address] Creatinine [Mass/Vol] 0.59 mg/dL Normal 0.50 - 1.30 [facility] Comment on above: Performed By: #### G ZOHREH #### [facility] [address] [place] [address] eGFR MALE >90 Normal >90 [facility] Comment on above: Result Comment: CALC ULATIONS OF ESTIMATED GFR ARE PERFORMED USING THE 2020 CKD-EPI STUDY REFIT EQUATION WITHOUT THE RACE VARIABLE FOR THE IDMS-TRACEABLE CREATININE METHODS. https://jasn.asnjournals.org/content/early/ASN.4664335 988 Performed By: #### G ZOHREH #### [facility] [address] [place] [address] Glucose [Mass/Vol] 122 mg/dL High 74 - 99 [facility] Comment on above: Performed By: #### G ZOHREH #### [facility] [address] [place] [address] HCO3 (Bld) [Moles/Vol] 29 mmol/L Normal 21 - 32 [facility] Comment on above: Performed By: #### G ZOHREH #### [facility] [address] [place] [address] Potassium [Moles/Vol] 3.5 mmol/L Normal 3.5 - 5.3 [facility] Comment on above: Result Comment: MILD HEMOLYSIS DETECTED. The result may be falsely elevated due to hemolysis or other interferents. Clinical correlation is recommended. Repeat testing may be considered. Performed By: #### G ZOHREH #### [facility] [address] [place] [address] Protein [Mass/Vol] 7.4 g/dL Normal 6.4 - 8.2 [facility] Comment on above: Performed By: #### G ZOHREH #### [facility] [address] [place] [address] Sodium [Moles/Vol] 123 mmol/L Low 136 - 145 [facility] Comment on above: Performed By: #### G ZOHREH #### [facility] [address] [place] [address] Urea nitrogen [Mass/Vol] 10 mg/dL Normal 6 - 23 [facility] Comment on above: Performed By: #### G ZOHREH #### [facility] [address] [place] [id number] CORONAVIRUS 2019, SCREEN ASY MPTOMATICon 08-28-2022 SARS-CoV-2 (COVID-19) RNA NEVIN+probe Ql (Unsp spec) Not detected Normal Not Detected [facility] Comment on above: Result Comment: . This test has received [facility] Emergency Use Authorization (EUA) and has been verified by [facility]. This test is only authorized for the duration of time that circumstances exist to justify the authorization of the emergency use of in vitro diagnostic tests for the detection of SARS-CoV-2 virus and/or diagnosis of COVID-19 infection under section 564(b)(1) of the Act, 21 U.S.C. 360bbb-3(b)(1), unless the authorization is terminated or revoked sooner. [facility] is certified under CLIA-88 as qualified to perform high complexity testing. Testing is performed in the [facility] laboratory located at [address] [place] [address]. SARS-CoV-2/Flu/RSV Multiplex Test: Fact sheet for providers: https://www.fda.gov/media/994293/download Fact sheet for patients: https://www.fda.gov/media/416354/download Performed By: #### V TB12 #### [facility] [address] [place] [address] Lab Specimen Source Nasal, Nasopharyngeal Normal [facility] Comment on above: Performed By: #### V TB12 #### [facility] [address] [place] [address] CT CHEST ABDOMEN PELVIS W IV CONTRASTon 08-28-2022 CT CHEST ABDOMEN PELVIS W IV CONTRAST Patient Name: CHRISTOS LYONS STUDY: CT CHEST ABDOMEN PELVIS W IV CONTRAST; ; 08/28/2022 8:20 pm INDICATION: pain scleral icterus fatigue dysphagia . COMPARISON: None. 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 [id number] discogenic degeneration in the remaining visible spine. [...] regio (more content not included)... Normal [facility] CT Chest Abdomen Pelvis with IV Contraston 08-28-2022 CT Chest and Abdomen and Pelvis W contrast IV Normal [facility] Work Phone: Complete Blood Count + Diffe rentialon 08-28-2022 Basophils/100 WBC (Bld) 0.4 % 0.0 - 2.0 [facility] Work Phone: Erythrocyte distribution width (RBC) [Ratio] 14.4 % See Below [facility] [facility] Work Phone: Comment on above: Reference Range: 11. 5 - 14.5 Hematocrit (Bld) [Volume fraction] 32.3 % below low threshold See Below [facility] Work Phone: Comment on above: Reference Range: 41. 0 - 52.0 Hemoglobin (Bld) [Mass/Vol] 11.6 g/dL below low threshold See Below [facility] Work Phone: Comment on above: Reference Range: 13. 5 - 17.5 Lymphocytes/100 WBC (Bld) 2.3 % See Below [facility] Work Phone: Comment on above: Reference Range: 13. 0 - 44.0 MCHC (RBC) [Mass/Vol] 35.9 g/dL See Below [facility] Work Phone: Comment on above: Reference Range: 32. 0 - 36.0 MCV (RBC) [Entitic vol] 98 fL 80 - 100 [facility] Work Phone: Monocytes/100 WBC (Bld) 3.1 % 2.0 - 10.0 [facility] Work Phone: Neutrophils/100 WBC (Bld) 93.8 % See Below [facility] Work Phone: Comment on above: Reference Range: 40. 0 - 80.0 Platelets (Bld) [#/Vol] 141 10*3/uL below low threshold 150 - 450 [facility] Work Phone: RBC (Bld) [#/Vol] 3.30 {x10E12/L} below low threshold See Below [facility] Work Phone: Comment on above: Reference Range: 4.5 0 - 5.90 WBC (Bld) [#/Vol] 9.5 10*3/uL 4.4 - 11.3 [facility] Work Phone: Complete Blood Count + Differential 0.04 {x10E9/L} See Below [facility] Work Phone: Comment on above: Reference Range: 0.0 0 - 0.10 Complete Blood Count + Differential 0.29 {x10E9/L} See Below [facility] Work Phone: Comment on above: Reference Range: 0.0 5 - 0.80 Complete Blood Count + Differential 0.22 {x10E9/L} below low threshold See Below [facility] Work Phone: Comment on above: Reference Range: 0.8 0 - 3.00 Complete Blood Count + Differential 8.87 {x10E9/L} above high threshold See Below [facility] Work Phone: Comment on above: Reference Range: 1.6 0 - 5.50 Complete Blood Count + Differential 0.4 % 0.0 - 0.9 [facility] Work Phone: Comment on above: Immature Granulocyte Count (IG) includes promyelocytes, myelocytes and metamyelocytes but does not include bands. Percent differential counts (%) should be interpreted in the context of the absolute cell counts (cells/L). Coronavirus 2019 RNA by PCR, Screening Asymptomticon 08-28-2022 Coronavirus 2019 RNA by PCR, Screening Asymptomtic Not detected Normal See Below [facility] Work Phone: Comment on above: SOURCE: Nasal, Nasop haryngealReference Range: Not Detected.This test has received FDA Emergency Use Authorization (EUA) and has been verified by [facility]. This test is only authorized for the duration of time that circumstances exist to justify the authorization of the emergency use of in vitro diagnostic tests for the detection of SARS-CoV-2 virus and/or diagnosis of COVID-19 infection under section 564(b)(1) of the Act, 21 U.S.C. 360bbb-3(b)(1), unless the authorization is terminated or revoked sooner. [facility] is certified under CLIA-88 as qualified to perform high complexity testing. Testing is performed in the [facility] laboratory located at [address] [place] [address].SARS-CoV-2/Flu/RSV Multiplex Test: Fact sheet for providers: https://www.fda.gov/media/520610/downloadFact sheet for patients: https://www.fda.gov/media/874511/download Covid 19 Resultson 3 SARS-CoV-2 (COVID-19) RNA [...] You may also be contacted by the [facility] to see if any of [...] or Naproxen (Aleve) can also be used. Lbou-uen-aaxyoqp cough and cold medicines can be used according to the instructions on the package. Some hbur-htr-ohydnmw medicines also contain acetaminophen. Make sure you [...] water are not available, use alcohol-based hand gang bore operator. Avoid touching your eyes, nose, and mouth [...] roderick (more content not included)... Normal [facility] Laboratory - Chemistry and C hemistry - challengeon 08-28-2022 Anion gap 4 (BldV) [Moles/Vol] 7 mmol/L below low threshold 10 - 25 [facility] Work Phone: Base excess Calc (BldV) [Moles/Vol] 6.9 mmol/L above high threshold -2.0 - 3.0 [facility] Work Phone: Calcium.ionized (BldV) [Moles/Vol] 0.98 mmol/L below low threshold See Below [facility] Work Phone: Comment on above: Reference Range: 1.1 0 - 1.33 Chloride (BldV) [Moles/Vol] 89 mmol/L below low threshold 98 - 107 [facility] Work Phone: CO2 (BldV) [Partial pressure] 43 mm[Hg] 41 - 51 [facility] Work Phone: Glucose [Mass/Vol] 118 mg/dL above high threshold 74 - 99 [facility] Work Phone: HCO3 (Bld) [Moles/Vol] 31.3 mmol/L above high threshold See Below [facility] Work Phone: Comment on above: Reference Range: 22. 0 - 26.0 Lactate (BldV) [Moles/Vol] 3.2 mmol/L above high threshold 0.4 - 2.0 [facility] Work Phone: Oxygen (BldV) [Partial pressure] 26 mm[Hg] below low threshold 35 - 45 [facility] Work Phone: Oxyhemoglobin (BldV) [Mass fraction] 26.6 % below low threshold See Below [facility] Work Phone: Comment on above: Reference Range: 45. 0 - 75.0 pH (BldV) 7.47 [pH] above high threshold See Below [facility] Work Phone: Comment on above: Reference Range: 7.3 3 - 7.43 Potassium (BldV) [Moles/Vol] 2.9 mmol/L Critically low 3.5 - 5.3 [facility] Work Phone: Comment on above: RB TO JOSE PUGA, 19:40 Sodium (BldV) [Moles/Vol] 124 mmol/L below low threshold 136 - 145 [facility] Work Phone: Albumin BCP dye [Mass/Vol] 4.2 g/dL 3.4 - 5.0 [facility] Work Phone: ALP [Catalytic activity/Vol] 174 U/L above high threshold 33 - 136 [facility] Work Phone: ALT With P-5'-P [Catalytic activity/Vol] 46 U/L 10 - [address] [facility] Work Phone: Comment on above: Patients treated wit h Sulfasalazine may generate falsely decreased results for ALT. Anion gap [Moles/Vol] 19 mmol/L 10 - [address] [facility] Work Phone: AST With P-5'-P [Catalytic activity/Vol] 127 U/L above high threshold 9 - 39 [facility] Work Phone: Comment on above: MILD HEMOLYSIS DETEC ROHITH. The result may be falsely elevated due tohemolysis or other interferents. Clinical correlation is recommended.Repeat testing may be considered. Bilirubin [Mass/Vol] 4.9 mg/dL above high threshold 0.0 - 1.2 [facility] Work Phone: Calcium [Mass/Vol] 8.7 mg/dL 8.6 - 10.3 [facility] Work Phone: Chloride [Moles/Vol] 79 mmol/L below low threshold 98 - 107 [facility] Work Phone: CO2 [Moles/Vol] 29 mmol/L 21 - 32 [facility] Work Phone: Creatinine [Mass/Vol] 0.59 mg/dL See Below [facility] Work Phone: Comment on above: Reference Range: 0.5 0 - 1.30 Glucose [Mass/Vol] 122 mg/dL above high threshold 74 - [address] [facility] Work Phone: Natriuretic peptide B (Bld) [Mass/Vol] 111 pg/mL above high threshold 0 - [address] [facility] Work Phone: Comment on above: . <100 pg/mL - Heart failure [id number] pg/mL - Intermediate probability of acute heart. failure exacerbation. Correlate with clinical. context and patient history. >=300 pg/mL - Heart Failure likely. Correlate with clinical. context and patient history.BNP testing is performed using different testing methodology at [facility] than at other [facility]. Direct result comparisons should only be made within the same method. Potassium [Moles/Vol] 3.5 mmol/L 3.5 - 5.3 [facility] Work Phone: Comment on above: MILD HEMOLYSIS DETEC ROHITH. The result may be falsely elevated due tohemolysis or other interferents. Clinical correlation is recommended.Repeat testing may be considered. Protein [Mass/Vol] 7.4 g/dL 6.4 - 8.2 [facility] Work Phone: Sodium [Moles/Vol] 123 mmol/L below low threshold 136 - 145 [facility] Work Phone: Urea nitrogen [Mass/Vol] 10 mg/dL 6 - 23 [facility] Work Phone: Laboratory - Coagulationon 0 08-28-2022 aPTT Coag (PPP) [Time] 31 s 26 - 39 [facility] Work Phone: Comment on above: THE APTT IS NO LONGE R USED FOR MONITORING UNFRACTIONATED HEPARIN THERAPY. FOR MONITORING HEPARIN THERAPY, USE THE HEPARIN ASSAY. INR Coag (PPP) [Relative time] 0.9 {INR} 0.9 - 1.1 [facility] Work Phone: PT Coag (PPP) [Time] 10.9 s 9.8 - 13.4 [facility] Work Phone: Laboratory - Hematology and Cell countson 08-28-2022 Hematocrit Est (Bld) [Volume fraction] 34.0 % below low threshold See Below [facility] Work Phone: Comment on above: Reference Range: 41. 0 - 52.0 Hemoglobin (Bld) [Mass/Vol] 11.4 g/dL below low threshold See Below [facility] Work Phone: Comment on above: Reference Range: 13. 5 - 17.5 MAGNESIUMon 08-28-2022 Magnesium [Mass/Vol] 1.80 mg/dL Normal 1.60 - 2.40 [facility] Comment on above: Performed By: #### M G #### [facility] [address] [place] [address] Magnesium, Serumon 3 Magnesium [Mass/Vol] 1.80 mg/dL See Below -[facility] Work Phone: Comment on above: Reference Range: 1.6 0 - 2.40 No Panel Informationon 08-28 Inhaled oxygen concentration 21 % [facility] Work Phone: >90 >90 [facility] Work Phone: Comment on above: CALCULATIONS OF ROSANA MATED GFR ARE PERFORMED USING THE 2020 CKD-EPI STUDY REFIT EQUATION WITHOUT THE RACE VARIABLE FOR THE IDMS-TRACEABLE CREATININE METHODS.https://jasn.asnjournals.org/content/early/ASN .0056728085 PHOSPHORUSon 08-28-2022 Phosphate [Mass/Vol] 2.0 mg/dL Low 2.5 - 4.9 [facility] Comment on above: Result Comment: The performance [...] considered. Performed By: #### R ENAL #### [facility] [address] [place] [address] Phosphorus, Serumon 08-29-19 23 Phosphate [Mass/Vol] 2.0 mg/dL below low threshold 2.5 - 4.9 [facility] Work Phone: Comment on [...] 10 ng/L Normal 0 - 20 [facility] Comment on above: Result Comment: . Less [...] performed using a different testing methodology at [facility] than at other [facility]. Direct result comparisons should only be made within the same method. Performed By: #### M G #### [facility] [address] [place] [address] Tropinin I.cardiac panel High sensitivity method 10 ng/L 0 - 20 [facility] Work Phone: Comment on above: .Less than [...] performed using a different testing methodology at [facility] than at other [facility]. Direct result comparisons should only [...] Arrival: stretcher Mode of Arrival: ambulance Agency: [facility] Agency Name: Arthur Arrival From: home Accompanied By: stick inserter CHIEF COMPLAINT CHRISTOS LYONS is a Male [...] 17:17 by Domenica Soto (EMT-P) Normal [facility] VENOUS FULL PANELon 08-29-19 23 Anion gap [Moles/Vol] 7 mmol/L Low 10 - 25 [facility] Comment on above: Order Comment: RB TO JOSE PUGA, 08/28/2022 19:40 Performed By: #### V FPA4 ####[facility] [id number] [place] [address] BASE EXCESS-BLOOD 6.9 mmol/L High -2.0 - 3.0 [facility] Comment on above: Order Comment: RB TO JOSE PUGA, 08/28/2022 19:40 Performed By: #### V FPA4 ####[facility] [id number] [facility] [place] [address] BICARB, CALCULATED 31.3 mmol/L High 22.0 - 26.0 [facility] Comment on above: Order Comment: RB TO JOSE PUGA, 08/28/2022 19:40 Performed By: #### V FPA4 ####[id number] CALCIUM,IONIZED 0.98 mmol/L Low 1.10 - 1.33 [facility] Comment on above: Order Comment: RB TO JOSE PUGA, 08/28/2022 19:40 Performed By: #### V FPA4 ####[id number]22 Chloride [Moles/Vol] 89 mmol/L Low 98 - 107 [facility] Comment on above: Order Comment: RB TO JOSE PUGA, 08/28/2022 19:40 Performed By: #### V FPA4 ####[id number] [facility] [place] [place] [address] FIO2 21 % Normal [facility] Comment on above: Order Comment: RB TO JOSE PUGA, 08/28/2022 19:40 Performed By: #### V FPA4 ####[id number] [place] [address] Glucose [Mass/Vol] 118 mg/dL High 74 - 99 [facility] Comment on above: Order Comment: RB TO JOSE PUGA, 08/28/2022 19:40 Performed By: #### V FPA4 ####[facility] [id number] [facility] Hematocrit (Bld) [Volume fraction] 34.0 % Low 41.0 - 52.0 [facility] Comment on above: Order Comment: RB TO JOSE PUGA, 08/28/2022 19:40 Performed By: #### V FPA4 ####[id number] [facility] [place] [address] Hemoglobin (Bld) [Mass/Vol] 11.4 g/dL Low 13.5 - 17.5 [facility] Comment on above: Order Comment: RB TO JOSE PUGA, 08/28/2022 19:40 Performed By: #### V FPA4 ####[id number] [place] [address] Lactate [Moles/Vol] 3.2 mmol/L High 0.4 - 2.0 [facility] Comment on above: Order Comment: RB TO JOSE PUGA, 08/28/2022 19:40 Performed By: #### V FPA4 ####[id number] [place] [address] OXY HGB 26.6 % Low 45.0 - 75.0 [facility] Comment on above: Order Comment: RB TO JOSE PUGA, 08/28/2022 19:40 Performed By: #### V FPA4 ####[id number] [place] [address] Oxygen (Bld) [Partial pressure] 26 mm[Hg] Low 35 - 45 [facility] Comment on above: Order Comment: RB TO JOSE PUGA, 08/28/2022 19:40 Performed By: #### V FPA4 ####[id number] [place] [address] PATIENT TEMPERATURE 37.0 degrees C Normal [facility] Comment on above: Order Comment: RB TO JOSE PUGA, 08/28/2022 19:40 Result Comment: NOTE : PATIENT RESULTS ARE NOT CORRECTED FOR TEMPERATURE. Performed By: #### V FPA4 ####[id number] [place] [address] PCO2 43 mmHg Normal 41 - 51 [facility] Comment on above: Order Comment: RB TO JOSE PUGA, 08/28/2022 19:40 Performed By: #### V FPA4 ####[id number] [place] [address] pH (Bld) 7.47 [pH] High 7.33 - 7.43 [facility] Comment on above: Order Comment: RB TO JOSE PUGA, 08/28/2022 19:40 Performed By: #### V FPA4 ####[facility] [id number] [place] [address] Potassium [Moles/Vol] 2.9 mmol/L Critically low 3.5 - 5.3 [facility] Comment on above: Order Comment: RB TO JOSE PUGA, 08/28/2022 19:40 Result Comment: RB T O JOSE PUGA, 08/28/2022 19:40 Performed By: #### V FPA4 ####[facility] [id number] [place] [address] SO2 27 % Low 45 - 75 [facility] Comment on above: Order Comment: RB TO JOSE PUGA, 08/28/2022 19:40 Performed By: #### V FPA4 ####[facility] [id number] [place] [address] Sodium [Moles/Vol] 124 mmol/L Low 136 - 145 [facility] Comment on above: Order Comment: RB TO JOSE PUGA, 08/28/2022 19:40 Performed By: #### V FPA4 ####[facility] [id number] [place] [address] Vital signson 08-28-2022 Oxygen saturation in Venous blood 27 % below low threshold 45 - 75 [facility] Work Phone: Office Visit (Internal Medic ine)on [...] stroke and (more content not included)... Normal [facility] Vital Signs Date Time Vital Sign Value Performing Clinician Facility 12-30-2022 07:56-0400 Body height 182.9 cm [facility] Subject Company [facility] Work Phone: [facility] 12-30-2022 07:56-0400 Body mass index (BMI) [Ratio] 29.02 kg/m2 [facility] Work Phone: [facility] 12-30-2022 07:56-0400 Body temperature 97.9 [degF] Kalyn Quinonez FEATHER TRIMMER - ELECTROCARDIOGRAPHIC TECHNICIAN Work Phone: [facility] 12-30-2022 07:56-0400 Body weight 97.07 kg Kalyn Quinonez FEATHER TRIMMER - ELECTROCARDIOGRAPHIC TECHNICIAN Work Phone: [facility] 12-30-2022 07:56-0400 Diastolic blood pressure 72 mm[Hg] Kalyn Quinonez FEATHER TRIMMER - ELECTROCARDIOGRAPHIC TECHNICIAN Work Phone: [facility] 12-30-2022 07:56-0400 Heart rate 68 /min Kalyn Quinonez FEATHER TRIMMER - ELECTROCARDIOGRAPHIC TECHNICIAN Work Phone: [facility] 12-30-2022 07:56-0400 Systolic blood pressure 122 mm[Hg] Kalyn Quinonez FEATHER TRIMMER - ELECTROCARDIOGRAPHIC TECHNICIAN Work Phone: [facility] 08-29-2022 03:23-0400 Body temperature 37.0 {degrees_C} Brian Jean Work Phone: [facility] Work Phone: Comment on above: NOTE: PATIENT RESULTS ARE NOT CORRECTED FOR TEMPERATURE. 08-28-2022 19:20-0400 Body temperature 37.0 {degrees_C} Brian Jean Work Phone: [facility] Work Phone: Comment on above: NOTE: PATIENT RESULTS ARE NOT CORRECTED FOR TEMPERATURE. Encounters Encounter Date Encounter Type Care Provider Facility Start: 10-26-2024 ambulatory Henry REID Facil ity:[facility] Start: 08-07-2024 End: 08-07-2024 ambulatory Henry REID Facility:[facility] Start: 06-05-2024 End: 06-29-2024 Telephone encounter Barron Giraldo MD Work Phone: [facility] Clinical Communication Comment on above: Cancelled Appointmen t Start: 06-05-2024 ambulatory Henry REID Facil ity:[facility] Start: 05-24-2024 End: 05-24-2024 Telephone encounter Barron Giraldo MD Work Phone: [facility] [place] Start: 05-10-2024 ambulatory Henry REID Facil ity:[facility] Start: 04-12-2024 End: 04-12-2024 ambulatory Henry REID Facility:[facility] Start: 02-14-2024 End: 02-14-2024 ambulatory Henry REDI Facility:[facility] Start: 02-09-2024 End: 02-09-2024 ambulatory Henry REID Facility:[facility] Start: 02-07-2024 End: 02-07-2024 ambulatory Henry REID Facility:[facility] Start: 06-09-2023 End: 06-09-2023 ambulatory [facility] Work Phone: Start: 06-09-2023 End: 06-09-2023 Departed Referred [facility] [address] Start: 05-10-2023 End: 05-10-2023 ambulatory [facility] Work Phone: Start: 05-10-2023 End: 05-10-2023 Departed Referred [facility] [address] Start: 04-29-2023 Telephone encounter Kalyn hart FEATHER TRIMMER - ELECTROCARDIOGRAPHIC TECHNICIAN Work Phone: [facility] G[facility] Comment on above: Scheduling Start: 03-11-2023 End: 03-11-2023 ambulatory [facility] Work Phone: Start: 03-11-2023 End: 03-11-2023 Departed [facility]erred [facility] [address] Start: 01-17-2023 End: 01-17-2023 Departed [facility]erred [facility] [address] Start: 01-17-2023 Registered Referred [facility] [address] Start: 01-13-2023 End: 01-13-2023 ambulatory [facility] Work Phone: Start: 01-13-2023 End: 01-13-2023 [facility] Start: 01-13-2023 [facility] [address] Start: 01-05-2023 End: 01-05-2023 ambulatory [facility] Work Phone: Start: 01-05-2023 End: 01-05-2023 [facility] Start: 01-05-2023 [facility] [address] Start: 01-03-2023 End: 01-03-2023 ambulatory [facility] Work Phone: Start: 01-03-2023 End: 01-03-2023 [facility] Start: 12-30-2022 End: 12-30-2022 Office outpatient new 45 minutes Kalyn Hurtado CNP Work Phone: [facility] Comment on above: Elevated LFTs (Prima ry Dx); Abnormal CT of liver; History of alcohol abuse; Incontinence of feces, unspecified fecal incontinence type Start: 10-25-2022 End: 10-25-2022 Office outpatient new 45 minutes Barron Giraldo MD Work Phone: [facility] Comment on above: Elevated PSA (Primar y Dx); BPH with urinary obstruction Start: 10-18-2022 End: 10-18-2022 ambulatory [facility] Work Phone: Start: 10-18-2022 End: 10-18-2022 [facility] Start: 10-01-2022 End: 10-01-2022 ambulatory [facility] Work Phone: Start: 10-01-2022 End: 10-01-2022 [facility]ed [facility] Start: 09-20-2022 Registered Referred [facility] Start: 09-15-2022 Registered Referred [facility] 100 Start: 09-13-2022 Registered Referred [facility] 100 Start: 09-07-2022 Chart Update Brian Jean Work Phone: [facility] Work Phone: Start: 09-06-2022 Registered [facility] Start: 08-29-2022 End: 09-04-2022 Evaluation and management of inpatient Dr. Polo Sanchez Facility:[facility] Procedures Date Procedure Procedure Detail Performing Clinician [...] procedure 06/11/2024 11:50 AM EST [facility] [place] [address] [place] [address] Barron Giraldo MD [address] [facility] [address] [address] [place] [address] [facility] [place] Start: 05-09-2024 Medicare Advantage Annual Wellness Visit Medicare Advantage Annual Wellness Visit [facility] Start: 01-08-2024 COVID-19 Vaccine ( season) COVID-19 Vaccine ( season) [facility] Start: 01-08-2024 Influenza vaccination Influenza Vaccine (#1) [facility] Start: 05-16-2023 End: 05-16-2023 Patient encounter procedure 05/16/2023 9:30 AM EST Office Visit [facility] [address] [place] [address] Barron Giraldo MD [address] [place] [address] [facility] [employer] [facility] Start: 05-09-2023 Medicare Advantage Annual Wellness Visit Medicare Advantage Annual Wellness Visit [facility] [employer] Start: 04-26-2023 End: 10-26-2023 PSA Total PSA Total Lab Routine Elevated PSA Expected: 04/26/2023 (Approximate), Expires: 10/26/2023 [facility] [employer] Work Phone: Comment on above: Expected: 04/26/2023 (Approximate), Expi res: 10/26/2023 Start: 01-07-2023 COVID-19 Vaccine () COVID-19 Vaccine () [facility] [employer] Start: 01-07-2023 Influenza vaccination [facility] [employer] Start: 12-30-2022 End: 12-31-2023 Anti-smooth muscle antibody titer Anti-smooth muscle antibody titer Lab Routine Elevated LFTs Expected: 12/30/2022 (Approximate), Expires: 12/31/2023 [facility] [employer] Comment on above: Expected: 12/30/2022 (Approximate), Expi res: 12/31/2023 Start: 12-30-2022 End: 12-31-2023 Antimitochondrial antibody Antimitochondrial antibody Lab Routine Elevated LFTs Expected: 12/30/2022 (Approximate), Expires: 12/31/2023 [facility] [employer] Comment on above: Expected: 12/30/2022 (Approximate), Expi res: 12/31/2023 Start: 12-30-2022 End: 12-31-2023 CBC panel - Blood by Automated count CBC Lab Routine Elevated LFTs Abnormal CT of liver Expected: 12/30/2022 (Approximate), Expires: 12/31/2023 [facility] [employer] Comment on above: Expected: 12/30/2022 (Approximate), Expi res: 12/31/2023 Start: 12-30-2022 End: 12-31-2023 Comprehensive metabolic 1998 panel - Serum or Plasma Comprehensive metabolic panel Lab Routine Elevated LFTs Expected: 12/30/2022 (Approximate), Expires: 12/31/2023 [facility] [employer] Comment on above: Expected: 12/30/2022 (Approximate), Expi res: 12/31/2023 Start: 12-30-2022 End: 12-31-2023 Creatinine [Mass/volume] in Serum or Plasma Creatinine, Serum Lab Routine Elevated LFTs Abnormal CT of liver Expected: 12/30/2022 (Approximate), Expires: 12/31/2023 [facility] [employer] Comment on above: Expected: 12/30/2022 (Approximate), Expi res: 12/31/2023 Start: 12-30-2022 End: 12-31-2023 Ferritin [Mass/volume] in Serum or Plasma Ferritin Lab Routine Elevated LFTs Expected: 12/30/2022 (Approximate), Expires: 12/31/2023 [facility] [employer] Comment on above: Expected: 12/30/2022 (Approximate), Expi res: 12/31/2023 Start: 12-30-2022 End: 12-31-2023 Hepatitis 1996 panel - Serum Hepatitis panel, acute Lab Routine Elevated LFTs Expected: 12/30/2022 (Approximate), Expires: 12/31/2023 [facility] [employer] Comment on above: Expected: 12/30/2022 (Approximate), Expi res: 12/31/2023 Start: 12-30-2022 End: 12-31-2023 Iron and Iron binding capacity panel - Serum or Plasma Iron and TIBC Lab Routine Elevated LFTs Expected: 12/30/2022 (Approximate), Expires: 12/31/2023 [facility] [employer] Comment on above: Expected: 12/30/2022 (Approximate), Expi res: 12/31/2023 Start: 12-30-2022 End: 12-31-2023 Liver-Kidney Microsome 1 Ab Liver-Kidney Microsome 1 Ab Lab Routine Elevated LFTs Expected: 12/30/2022 (Approximate), Expires: 12/31/2023 [facility] [employer] Comment on above: Expected: 12/30/2022 (Approximate), Expi res: 12/31/2023 Start: 12-30-2022 End: 12-31-2023 MR Abdomen WO and W contrast IV MR abdomen w and wo contrast Imaging Routine Elevated LFTs Abnormal CT of liver Expected: 12/30/2022, Expires: 12/31/2023 [facility] Work Phone: Comment on above: Expected: 12/30/2022, Expires: Start: 12-30-2022 End: 12-31-2023 Nuclear Ab [Titer] in Serum by Immunofluorescence BRANDON Lab Routine Elevated LFTs Expected: 12/30/2022 (Approximate), Expires: 12/31/2023 [facility] [employer] Comment on above: Expected: 12/30/2022 (Approximate), Expi res: 12/31/2023 Start: 12-30-2022 End: 12-31-2023 Pancreatic elastase, fecal Pancreatic elastase, fecal Lab Routine History of alcohol abuse Incontinence of feces, unspecified fecal incontinence type Expected: 12/30/2022 (Approximate), Expires: 12/31/2023 [facility] [employer] Comment on above: Expected: 12/30/2022 (Approximate), Expi res: 12/31/2023 Start: 12-30-2022 End: 12-31-2023 Prothrombin time (PT) in Blood by Coagulation assay Protime-INR Lab Routine Elevated LFTs Expected: 12/30/2022 (Approximate), Expires: 12/31/2023 [facility] [employer] Comment on above: Expected: 12/30/2022 (Approximate), Expi res: 12/31/2023 Start: 11-18-2022 End: 11-18-2022 Patient encounter procedure 11/18/2022 9:20 AM EDT Office Visit [facility] [address] [place] [id number] Kalyn Quinonez APRN - [address] [id number] [facility] Start: 11-01-2022 NPV, Provider: Malou Bowen, Status: Pen, Time: 8:00 AM NPV, Provider: Malou Bowen, Status: Pen, Time: 8:00 AM [facility] Work Phone: Start: 08-18-2019 RSV Immunization for Adults (1 - 1-dose 75+ series) RSV Immunization for Adults (1 - 1-dose 75+ series) [facility] Start: 05-21-2014 DTaP/Tdap/Td Vaccines (1 - Tdap) DTaP/Tdap/Td Vaccines (1 - Tdap) [facility] Start: 2009 Pneumococcal Vaccine: 65+ Years (1 - PCV) Pneumococcal Vaccine: 65+ Years (1 - PCV) [facility] Start: 2009 Pneumococcal Vaccine: 65+ Years (1 of 1 - PCV) Pneumococcal Vaccine: 65+ Years (1 of 1 - PCV) [facility] Start: 2004 Hepatitis B Vaccines (1 of 3 - Risk 3-dose series) Hepatitis B Vaccines (1 of 3 - Risk 3-dose series) [facility] Start: 2004 RSV Immunization aged 60 or older (1 - 1-dose 60+ series) RSV Immunization aged 60 or older (1 - 1-dose 60+ series) [facility] Start: 1994 Zoster Vaccines (1 of 2) Zoster Vaccines (1 of 2) [facility] Start: 08-18-1963 Hepatitis A Vaccines (1 of 2 - Risk 2-dose series) Hepatitis A Vaccines (1 of 2 - Risk 2-dose series) [facility] Start: 08-18-1963 Pneumococcal Vaccine: 50+ Years (1 of 2 - PCV) Pneumococcal Vaccine: 50+ Years (1 of 2 - PCV) [facility] Start: 1962 Diabetes: Estimated Glomerular Filtration Rate for Kidney Health Diabetes: Estimated Glomerular Filtration Rate for Kidney Health [facility] Start: 1962 Diabetes: Urine Albumin-Creatinine Ratio for Kidney Health Diabetes: Urine Albumin-Creatinine Ratio for Kidney Health [facility] Start: 1962 Hepatitis C screening Hepatitis C Screening [facility] Start: 1956 Depression Screening Depression Screening [facility] Start: 02-16-1945 COVID-19 Vaccine (#1) COVID-19 Vaccine (#1) [facility] Start: 1944 Thyroid stimulating hormone measurement TSH Level [facility] Payers Date Payer Category Payer Unknown [id number] 2024 Medicaid [id number] 2024 Self-pay 2022 Medicare [employer] MED[employer] UHC MEDICARE ADVANTAGE [id number] 2022-Present [address] [place] [address] Medicare HMO [id number] 2022 Medicare [facility] MEDICARE ADV ANTAGE [facility] Address: [facility] [id number] [place] [address] [id number] 1945 Unknown [id number] Medicare MEDICARE PART A B [id number] Private Health Insurance [id number] Unknown Unknown [id number] Unknown [id number] Unknown [id number] Unknown [id number] Unknown [id number] Unknown [id number] Unknown [id number] Unknown [id number] Social History Date Type Detail Facility Start: 10-25-2022 End: 12-30-2022 Self-employed Self-employed [facility] Work Phone: Start: 1945 Sex Assigned At Male [facility] Start: 10-25-2022 Tobacco smoking stat us NHIS Never smoked tobacco [facility] Start: 10-25-2022 Tobacco use and exposure Smokeless tobacco non-user [facility] Start: 10-25-2022 End: 12-30-2022 Alcohol intake Ex-drinker (finding) [facility] Start: 1945 Sex Assigned At Not on file [facility] Start: 10-25-2022 End: 12-30-2022 Gender identity Not on file [facility] Start: 10-15-2022 End: 12-30-2022 Exposure to SARS-CoV-2 (event) Not sure [facility] Start: 09-22-2022 Sex Male (finding) [facility] [employer] gallegos Clinical Notes 08-29-2022 to 06-05-2024 Telephone Encounter - Serene Ron - 06/05/2024 3:28 PM ESTTelephone Encounter - Serene Ron - 06/05/2024 3:28 PM ESTTelephone Encounter - Shana Tana - 05/24/2024 10:28 AM ESTAttachments Note Date & Type Note Facility 06-05-2024 Telephone encounter Note Name of Caller: So ([employer]) Contact Reason for Appointment: So called instating Pt wanted to cancel his 06/11 appt and does not want to r/s at this time. Please be advised Office Name: [facility] 06-05-2024 Miscellaneous Notes Name of Caller: So ([employer]) Contact Reason for Appointment: So called instating Pt wanted to cancel his 06/11 appt and does not want to r/s at this time. Please be advised Office Name: [facility] documented in this encounter [facility] 05-24-2024 Telephone encounter Note [facility] [place] called to reschedule the patient's 05/16/[address] Giraldo. Patient is not ambulatory and will be arriving on cot. Appt RS to 06/11/24. [facility] 05-24-2024 Miscellaneous Notes Radha from [facility] [place] called to reschedule the patient's 05/16/[address] Giraldo. Patient is not ambulatory and will be arriving on cot. Appt RS to 06/11/24. documented in this encounter [facility] 05-03-2023 Telephone encounter Note Noted patient electing to not proceed with MRI abdomen. Two non-specific liver lesions seen on imaging at outside facility 08/2022. MRI recommended for further evaluation/characterization. Patient did not complete any of the additional lab work ordered at GI visit, either. Please send FYI to PCP. Thank you! [facility] 05-03-2023 Miscellaneous Notes Noted patient [...] MRI scheduled, pt brother to call back documented in this encounter [facility] 04-29-2023 Telephone encounter Note Please advise-MRI ordered in December [facility] 04-29-2023 Telephone encounter Note Pt did not wish to have MRI scheduled, pt brother to call back JR [facility] 12-30-2022 History of Present illness Narrative Images from the original note were not included. [facility] [address] [facility] [address] Dept: [phone] Dept Loc: [phone] Visit type: New Reason for Visit: New [...] Gruber, re: fatty liver. Patient resides in [facility]-has been living there since August 2022 following [...] Normal appearance. HENT: Head: Normocephalic. Ears: Comments: [place] Eyes: General: No scleral icterus. Cardiovascular: Rate [...] 9:00 AM 12/30/22 documented in this encounter [facility] 12-30-2022 Instructions FRANCHESCA Palmer CNP - 12/30/2022 8:00 AM EDT --Please call office with any questions or concerns! [phone] --Obtain additional lab work for further evaluation of the symptoms. --Schedule MRI liver --Please see handout provided regarding additional recommendations for the symptoms including when to seek emergency care or further treatment. --Follow-up with PCP, and in GI clinic in about 3 months following the above evaluation and recommendations. The following attachments cannot be sent through Care Everywhere.Fecal Incontinence (Kazakh)documented in this encounter [facility] 10-25-2022 History of Present illness [...] deconditioning. In wheelchair, still at rehab at [facility] in [place]. He normally lives in [place]. Has psa 5.57 Psa in 2019 9.36 [...] 10/25/22 11:38 AM documented in this encounter [facility] 09-04-2022 Note Send Summary: Discharge [...] Condition at Discharge: Satisfactory Disposition at Discharge: [facility] Facility ([facility]) Vital Signs: T PRBPMAPSpO2 Value36.70578853/6695% Date/Time09/04 8: 8: 8: 8: 8:21 Range(36.2C [...] Surgical Pathology Drawn at 02-Sep-2022 14:40:00 Cytology-Non FILM CUTTER Drawn at 02-Sep-2022 00:00:00 Venous Full Panel Drawn at 28-Aug-2022 19:12:00 Radiology Results - Pending: None Discharge Instructions: Activity: activity as tolerated. May shower.. Nutrition/Diet: low sodium Fluid Restriction: 1.5L Labs: Lab Test(s): CBC, Comprehensive Metabolic Panel Date To Be Drawn: 09/06/2022 Fax Results To: Dr Maynard, #[phone] Rehab Services: Occupational Therapy Orders: [facility] Physical Therapy Orders: Eval and Treat ([facility]) Care Recommendation: I recommend that INPATIENT care is required at:: Skilled Follow Up Appointments: Follow-Up Appointment 01: Physician/Dept/Service: Dr. Malou Bowen - Pulmonary Scheduled Date/Time: (more content not included)... [facility] 08-29-2022 Note History of Present I llness: HPI: CHRISTOS LYONS is a 77 year old Male with a past medical history of hypertension, hyperlipidemia, anemia, alcohol use disorder, BPH, anxiety, hypothyroidism, gouty arthritis who presented to [facility] complaining of worsening dysphagia to solid [...] are negative Objective: Objective Information: T PRBPMAPSpO2 Value36.18602744/6697% Date/Time08/28 23: 23: 23: 23: 23:09 Range(36.2C [...] Hours PRN (more content not included)... [facility] Evaluation note No assessment information [facility] Work Phone: Evaluation note Diagnosis Elevated PSA- Primary Elevated prostate specific antigen (PSA) BPH with urinary obstruction Hypertrophy of prostate with urinary obstruction and other lower urinary tract symptoms (LUTS) documented in this encounter [facility]* Diagnosis Elevated LFTs- Primary Other abnormal blood chemistry Abnormal CT of liver History of alcohol abuse Nondependent alcohol abuse, in remission Incontinence of feces, unspecified fecal incontinence type documented in this encounter [facility] Health Summary Purpose Family History No Family [...] and Reason for Visit Chief Complaint LABWORK SENIOR LIVING LABWORK LABWORK LAB WORK LABWORK Chief Complaint LABWORK SENIOR LIVING LABWORK LABWORK LAB WORK LABWORK SENIOR LIVING LABWORK Chief Complaint LABWORK SENIOR LIVING LABWORK SENIOR LIVING LAB WORK SENIOR LIVING LAB WORK SENIOR LIVING LAB WORK Chief Complaint SENIOR LIVING LAB WOR K SENIOR LIVING LAB WORK SENIOR LIVING LAB WORK SENIOR LIVING LABWORK LABWORK Chief Complaint LABWORK LABWORK Chief Complaint LABWORK LABWORK LABWORK Reason for Referral Specialty Diagnoses / Procedures Referred By Christina t Referred To Contact Radiology Diagnoses Elevated LFTs Abnormal CT of liver Procedures MR abdomen w and wo contrast Kalyn Quinonez, FEATHER TRIMMER - ELECTROCARDIOGRAPHIC TECHNICIAN [address] [facility] [address] [place] [id number] Referral ID Status Reason Start Date Expiration Date V isits Requested Visits Authorized [id number] Pending Review 12/30/2022 06/28/2023 1 1 Additional Source Comments (unrecognized sect ion and content) No Status Records FoundNo Status Records FoundNo Status Records FoundNo Status Records FoundNo Status Records Found INFORMATION SOURCE (unrecogn ized section and content) DATE CREATED AUTHOR 02/07/2021 [employer] DATE CREATED AUTHOR AUTHOR'S ORGANIZ ATION 09/07/2022 [facility] DATE CREATED AUTHOR AUTHOR'S ORGANIZ ATION 09/08/2022 [facility] DATE CREATED AUTHOR AUTHOR'S ORGANIZ ATION 06/07/2024 [facility] DATE CREATED AUTHOR AUTHOR'S ORGANIZ ATION 10/29/2024 [facility] Care Teams (unrecognized sec tion and content) Team Status: Inactive Member Role Status Dates Henry REID Attending Provider Active Team Status: Inactive Member Role Status Dates Henry REID Attending Provider, Referring Provid er Active Team Status: Active Member Role Status Dates Henry REID Attending Provider Active Team Status: Active Member Role Status Dates Henry REID Attending Provider, Referring Provid er 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 Relationship Specialty Start Date End Date Henry Gruber [address] [place] [address] [address] [place] [address] PCP - General Family Medicine 09/22/22 Barron Giraldo MD [address] [place] [address] Surgeon Urology 10/25/22 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 Relationship Specialty Start Date End Date Henry Gruber [address] [place] [address] [address] [place] [address] PCP - General Family Medicine 09/22/22 Barron Giraldo MD [address] [facility] [address] [place] [address] Surgeon Urology 10/25/22 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 Relationship Specialty Start Date End Date Henry Gruber [address] [place] [address] [address] [place] [address] PCP - General Family Medicine 09/22/22 Barron Giraldo MD [address] [place] [address] Surgeon Urology 10/25/22 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 Relationship Specialty Start Date End Date Henry Gruber MD [address] [place] [address] [address] [place] [address] PCP - General Family Medicine 09/22/22 Barron Giraldo MD [address] [place] [address] Surgeon Urology 10/25/22 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 Relationship Specialty Start Date End Date Henry Gruber MD [address] [place] [address] [place] [address] PCP - General Family Medicine 09/22/22 Barron Giraldo MD [address] [place] [address] Surgeon Urology 10/25/22 Goals (unrecognized section and [...] fatty liver Procedures Consult Henry Gruber [address] [place] [address] [address] [place] [address] [facility] [address] [place] [address] Referral ID Status Reason Start Date Expiration Date V isits Requested Visits Authorized [id number] Pending Review 10/01/2022 10/01/2023 1 1 Reason [...] BE BASED ON THE PRIMARY CLINICAL RECORDS. [facility] [employer] [facility]. provides no warranty or guarantee of the accuracy or completeness of information in this document.
[2024-11-06 11:34] LABS: Hematocrit 38.4 % (40-54); Hemoglobin 12.6 g/dL (13.0-16.5); Mean Corp Hgb Conc 32.8 g/dL (32-36); Mean Corpuscular Volume 89.3 fL (80-94); Mean Platelet Vol. 11.3 fl (6.2-12.0); Platelet Count 350 K/mm3 (150-450); RBC Distribution Width CV 14.3 % (11.6-14.6); RBC Distribution Width SD 46.3 fl (35.1-43.9); Red Blood Count 4.30 M/mm3 (4.6-6.2); White Blood Count 14.4 K/mm3 (4.4-11.0)
[2024-11-06 12:59] LABS: Cholesterol 115 mg/dL (<=200); Low Density Lipoprotein Calc. 43 mg/dL; Triglycerides 171 mg/dL; Uric Acid 4.0 mg/dL (3.5-7.2); Very Low Density Lipoprotein 34 mg/dL (5-40); cholesterol:hdl ratio screen 3.03
[2024-11-06 13:15] LABS: AST(SGOT) 28 U/L (<=37); Alanine Aminotransfer ALT/SGPT 18 U/L (<=46); Albumin, Serum 3.8 g/dL (3.4-4.8); Alkaline Phosphatase 169 U/L (40-129); Anion Gap 12 (5-15); BUN 5 mg/dL (4-19); BUN/Creat Ratio 8.3 RATIO (10-20); Calcium,Total 9.4 mg/dL (7.6-11.0); Carbon Dioxide 25.1 mmol/L (21.0-32.0); Chloride 100 mmol/L (98-108); Globulin 3.1 g/dL (2.2-4.2); Glucose 106 mg/dL (70-99); Potassium 3.9 mmol/L (3.3-5.1); T3 Total - Triiodothyronine 0.93 ng/mL (0.80-2.00); T4 Total, Thyroxin 10.0 ug/dL (4.5-12.1); Vitamin D,25 Hydroxy 35.9 ng/mL (30-100)
== END ==
LOC: OLS.ACW100 04:00
PROVIDERS: Referring Provider Family Medicine; Visit Provider Family Medicine
DX: E11.65 Type 2 diabetes mellitus with hyperglycemia (principal); I50.812 Chronic right heart failure; M10.9 Gout, unspecified; E03.9 Hypothyroidism, unspecified; I27.20 Pulmonary hypertension, unspecified; E55.9 Vitamin D deficiency, unspecified
CPT/HCPCS: 36415; 80053; 80061; 82306; 83036; 84436; 84443; 84480; 84550; 85027

== ENCOUNTER → 2024-11-29 05:00 | Outpatient (REF) | payer MEDICARE, MEDICAID, SELFPAY ==
--- OUTSIDE RECORDS SUMMARY | 2024-11-29 04:16 | XMS RPT_ITS | CCD ---
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 Polo Sanchez Admitting Jh Sal, Dr. Maynard Attending UnavailBashir Holman Referring Unavailable Dr. Brian Jean Primary Care Henry Razo Primary Care Provider Barron Giraldo MD Unavailable [phone] Henry Gruber MD Primary Care Provider Barron Giraldo MD Unavailable Henry Mathis Attending Unavailable Allyn REID, Henry Referring Unavailable [...] [[place] CAPS] Drug Allergy Rash -[facility] Work Phone: (5 sources) [place] Drug Allergy 10-25-2022 [facility] Medications Current Medications Medication Drug Class(es) Dates Sig (Normalized) Sig (Original) allopurinol 100 mg oral tablet (6 sources) Xanthine Oxidase Inhibitor Start: 10-13-2022 allopurinol (Zyloprim) 100 MG tablet 10/13/2022 Active Start: 07-16-2015 take 1 tablet by mari th once daily Allopurinol 300 MG Oral Tablet [...] EC tablet 10/01/2022 Active polyethylene glycol 3350 12850 mg powder for oral solution (4 sources) [...] Onset: 07-25-2024 Chronic Congestive heart failure; nonhypertensive (2 sources) Chronic right heart failure; Translations: [Chronic right heart failure] Onset: 08-28-2024 Chronic Deficiency and other anemia (1 source) Anemia; Translations: [Anemia, unspecified] Episodic Diabetes mellitus with complications (2 sources) Type 2 diabetes mellitus with hyperglycemia; Translations: [Type 2 diabetes mellitus with hyperglycemia] Onset: 08-28-2024 Chronic Diabetes mellitus without complication (1 source) Hyperglycemia; Translations: [Impaired fasting glucose] Episodic Gout and other crystal arthropathies (9 sources) Primary gout; Translations: [Gouty arthropathy, unspecified] [...] sources) Dysphagia, unspecified; Translations: [Dysphagia, unspecified] Onset: 07-25-2024 Episodic Other liver diseases (2 sources) Fatty (change of) liver, not elsewhere classified; Translations: [Fatty (change of) liver, not elsewhere classified] Onset: 08-28-2024 Chronic Other non-traumatic joint disorders (2 sources) Pain in right knee; Translations: [Knee pain, right] Resolved: 10-16-2016 Episodic Other screening for suspected conditions (not mental disorders or infectious disease) (5 sources) Raised prostate specific antigen; Translations: [Elevated prostate specific antigen [PSA]] 10-25-2022 Episodic Pulmonary heart disease (2 sources) Pulmonary hypertension, unspecified; Translations: [Primary pulmonary hypertension] Onset: 08-28-2024 Chronic Thyroid disorders (3 sources) Hypothyroidism; Translations: [Unspecified acquired hypothyroidism] Onset: [...] [Muscle weakness (generalized)] Onset: 07-25-2024 Episodic Other nervous system disorders [...] Facility 36on 06-05-2024 36 Name of Caller: Geovani palma ([facility]) Contact [facility] App[facility]ment: [facility]11 [facility] and does not want to r/s at this time. Please be advised Office Name: [facility] 36on 05-24-2024 36 Radha from [facility] in [place] called to reschedule the patient's 05/16/[address] Giraldo. Patient is not ambulatory and will be arriving on cot. Appt RS to 06/11/24. [facility] Serum or plasma thyroid stim ulating hormone (TSH) measurement (units/volume)Ordered By: Henry Gruber on 06-09-2023 TSH Qn 3.39 uIU/mL 0.358-3.74 [facility] Serum or plasma thyroxine (T 4) measurement (mass/volume)Ordered By: Henry Gruber on 06-09-2023 T4 [Mass/Vol] 8.2 ug/dL 4.5-12.1 [facility] Serum or plasma triiodothyro nine measurement by immunoassay (mass/volume)Ordered By: Henry Gruber on 06-09-2023 T3 IA [Mass/Vol] 1.05 ng/mL 0.6-1.81 [facility] No Panel InformationOrdered By: Henry Gruber on 05-10-2023 Prostate Specific Antigen Screen 4.50 ng/mL 0.00-4.00 [facility] Comment on above: This test was perfor med using the TPSA assay method for the[employer] chemistry system. Values obtained with differentassay methods cannot be used interchangably.When changing PSA assays in the course of monitoring apatient, additional sequential testing should be carriedout to confirm baseline values. Laboratory - Chemistry and C hemistry - challengeOrdered By: Henry Gruber on 03-11-2023 T4 [Mass/Vol] 8.9 ug/dL 4.5-12.1 [facility] No Panel InformationOrdered By: Henry Gruber on 03-11-2023 Thyroid Stimulating Hormone (TSH) 3.55 uIU/mL 0.358-3.74 [facility] Total Triiodothyronine 1.11 ng/mL 0.6-1.81 [facility] Basophil percentageOrdered B y: Henry Gruber on 01-17-2023 Chloride [Moles/Vol] 102 mmol/L 98-107 [facility] Glucose [Mass/Vol] 108 mg/dL 74-106 [facility] Comment on above: Fasting Glucose resu lt from 100 to 125 mg/dL suggests IMPAIRED HOMEOSTASIS per A.D.A. criteria. Potassium [Moles/Vol] 3.9 mmol/L 3.5-5.1 [facility] Sodium [Moles/Vol] 136 mmol/L 136-145 [facility] Laboratory - Chemistry and C hemistry - challengeOrdered By: Henry Gruber on 01-17-2023 CO2 [Moles/Vol] 29.0 mmol/L 21.0-32.0 [facility] Urea nitrogen/Creatinine [Mass ratio] 10.0 mg/mg 10-20 [facility] No Panel InformationOrdered By: Henry Gruber on 01-17-2023 Estimated GFR (MDRD) Amer 168 mL/min >60 [facility] Comment on above: GFR Calc Estimated GFR (MDRD) Non-Af Amer 139 mL/min >60 [facility] Comment on above: Non- GFR Calc Serum or plasma calcium bell urement (mass/volume)Ordered By: Henry Gruber on 01-17-2023 Calcium [Mass/Vol] 8.9 mg/dL 8.5-10.1 [facility] Serum or plasma creatinine m easurement (mass/volume)Ordered By: Henry Gruber on 01-17-2023 Creatinine [Mass/Vol] 0.60 mg/dL 0.70-1.30 [facility] Comment on above: The validity of the calculated GFR & GFRAA in patients over 70 years has not been determined. Clinical correlation is essential. Serum or plasma urea nitroge n measurement (mass/volume)Ordered By: Henry Gruber on 01-17-2023 Urea nitrogen [Mass/Vol] 6 mg/dL 7-18 [facility] Serum or plasma uric acid me asurement (mass/volume)Ordered By: Henry Gruber on 01-17-2023 Urate [Mass/Vol] 4.1 mg/dL 3.5-7.2 [facility] Comment on above: The drugs N-Acetylcy steine and Metamizole may falsely depress this assay. Thin prep Papanicolaou smear with manual screeningOrdered By: Henry Gruber on 01-17-2023 Thin prep Papanicolaou smear with manual screening 5 5-15 [facility] Basophil percentageOrdered B y: Henry Gruber on 01-13-2023 Chloride [Moles/Vol] 106 mmol/L 98-107 [facility] Glucose [Mass/Vol] 120 mg/dL 74-106 [facility] Comment on above: Fasting Glucose resu lt from 100 to 125 mg/dL suggests IMPAIRED HOMEOSTASIS per A.D.A. criteria. Potassium [Moles/Vol] 3.7 mmol/L 3.5-5.1 [facility] Sodium [Moles/Vol] 139 mmol/L 136-145 [facility] Laboratory - Chemistry and C hemistry - challengeOrdered By: Henry Gruber on 01-13-2023 CO2 [Moles/Vol] 27.0 mmol/L 21.0-32.0 [facility] Urea nitrogen/Creatinine [Mass ratio] 12.2 mg/mg 10-20 [facility] No Panel InformationOrdered By: Henry Gruber on 01-13-2023 Estimated GFR (MDRD) Amer 211 mL/min >60 [facility] Comment on above: GFR Calc Estimated GFR (MDRD) Non-Af Amer 174 mL/min >60 [facility] Comment on above: Non- GFR Calc Serum or plasma calcium bell urement (mass/volume)Ordered By: Henry Gruber on 01-13-2023 Calcium [Mass/Vol] 8.5 mg/dL 8.5-10.1 [facility] Serum or plasma creatinine m easurement (mass/volume)Ordered By: Henry Gruber on 01-13-2023 Creatinine [Mass/Vol] 0.49 mg/dL 0.70-1.30 [facility] Comment on above: The validity of the calculated GFR & GFRAA in patients over 70 years has not been determined. Clinical correlation is essential. Serum or plasma urea nitroge n measurement (mass/volume)Ordered By: Henry Gruber on 01-13-2023 Urea nitrogen [Mass/Vol] 6 mg/dL 7-18 [facility] Thin prep Papanicolaou smear with manual screeningOrdered By: Henry Gruber on 01-13-2023 Thin prep Papanicolaou smear with manual screening 6 5-15 [facility] No Panel InformationOrdered By: Henry Gruber on 01-05-2023 Stool Pancreatic Elastase 440 >200 [facility] Comment on above: Result Units: ug Fernanda st./g Severe Pancreatic Insufficiency: <100 Moderate Pancreatic Insufficiency: 100 - 200 Normal: >200Performed at: [facility] [address] [id number] Director: Terra Velazquez MD, Phone: [phone] Basophil percentageOrdered B y: Henry Gruber on 01-03-2023 Bilirubin [Mass/Vol] 0.40 mg/dL 0.20-1.00 [facility] Comment on above: For patients on eltr ombopag therapy, use of Dimension Weaver TBIL is not recommended. Chloride [Moles/Vol] 105 mmol/L 98-107 [facility] Glucose [Mass/Vol] 177 mg/dL 74-106 [facility] Comment on above: Fasting Glucose resu lt greater than or equal to 126 mg/dL suggests DIABETES MELLITUS per A.D.A. criteria. Potassium [Moles/Vol] 3.4 mmol/L 3.5-5.1 [facility] Protein [Mass/Vol] 6.3 g/dL 6.4-8.2 [facility] Sodium [Moles/Vol] 139 mmol/L 136-145 [facility] WBC (Bld) [#/Vol] 7.5 10*3/uL 4.4-11.0 [facility] Blood erythrocytes count (nu mber/volume)Ordered By: Henry Gruber on 01-03-2023 RBC (Bld) [#/Vol] 3.56 10*6/uL 4.6-6.2 [facility] Blood hemoglobin measurement (mass/volume)Ordered By: Henry Gruber on 01-03-2023 Hemoglobin (Bld) [Mass/Vol] 11.0 g/dL 13.0-16.5 [facility] Blood platelet mean volumeOr dered By: Henry Gruber on 01-03-2023 Platelet mean volume (Bld) [Entitic vol] 10.8 fL 6.2-12.0 [facility] Determination of erythrocyte mean corpuscular volume (MCV)Ordered By: Henry Gruber on 01-03-2023 MCV (RBC) [Entitic vol] 96.3 fL 80-94 [facility] Hematocrit Auto (Bld) [Volum e fraction]Ordered By: Henry Gruber on 01-03-2023 Hematocrit (Bld) [Volume fraction] 34.3 % 40-54 [facility] INR in Blood by Coagulation assayOrdered By: Henry Gruber on 01-03-2023 INR Coag (Bld) [Relative time] 1.0 {INR} [facility] Iron measurement (mass/mass) Ordered By: Henry Gruber on 01-03-2023 Iron (Unsp spec) [Mass/Mass] 46 ug/dL 65-175 [facility] Laboratory - Chemistry and C hemistry - challengeOrdered By: Henry Gruber on 01-03-2023 ALP [Catalytic activity/Vol] 173 U/L 45-117 [facility] ALT [Catalytic activity/Vol] 37 U/L 16-61 [facility] CO2 [Moles/Vol] 28.0 mmol/L 21.0-32.0 [facility] Globulin (S) [Mass/Vol] 3.7 g/dL 2.2-4.2 [facility] Urea nitrogen/Creatinine [Mass ratio] 13.2 mg/mg 10-20 [facility] Laboratory - CoagulationOrde red By: Henry Gruber on 01-03-2023 PT Coag (PPP) [Time] 13.5 s 11.7-14.9 [facility] Laboratory - Hematology and Cell countsOrdered By: Henry Gruber on 01-03-2023 Erythrocyte distribution width (RBC) [Entitic vol] 51.2 fL 35.1-43.9 [facility] Erythrocyte distribution width (RBC) [Ratio] 14.5 % 11.6-14.6 [facility] MCH (RBC) [Entitic mass] 30.9 pg 27.0-32.0 [facility] MCHC Auto (RBC) [Mass/Vol]Or dered By: Henry Gruber on 01-03-2023 MCHC (RBC) [Mass/Vol] 32.1 g/dL 32-36 [facility] No Panel InformationOrdered By: Henry Gruber on 01-03-2023 Anti-Nuclear Antibody Screen Negative Negative [facility] Comment on above: Performed at: [address] [id number] Director: Ishmael De Los Santos PhD, Phone: [phone] Estimated GFR (MDRD) Amer 165 mL/min >60 [facility] Comment on above: GFR Calc Estimated GFR (MDRD) Non-Af Amer 137 mL/min >60 [facility] Comment on above: Non- GFR Calc Hepatitis A IgM Antibody Negative Negative [facility] Hepatitis B Core IgM Antibody Negative Negative [facility] Hepatitis C Antibody (EIA) Non-Reactive Non Reactive [facility] Hepatitis C Antibody Comment Comment . [facility] Comment on above: Not infected with HC V unless early or acute infection issuspected (which may be delayed in an immunocompromisedindividual), or other evidence exists to indicate HCVinfection. Miscellaneous Test See comment [facility] Comment on above: TEST RESULTS LIMITSL iver-Kidney Microsomal Ab <1.0 Units 0.0- 20.0 Negative 0.0 - 20.0 Equivocal 20.1 - 24.9 Positive >24.9 LKM type 1 antibodies are detected in patients with autoimmune hepatitis type 2 and in up to 8% of patients with chronic HCV infection. TESTING PERFORMED AT [facility]. ORIGINAL REPORT ON FILE IN LAB CONTAINS ADDITIONAL TEST SITE INFORMATION. ____ Total Iron Binding Capacity 202 ug/dL 250-450 [facility] Platelets bldOrdered By: Pedro Gruber on 01-03-2023 Platelets (Bld) [#/Vol] 324 10*3/uL 150-450 [facility] Serum mitochondria antibody detectionOrdered By: Henry Gruber on 01-03-2023 Mitochondria Ab Ql (S) <20.0 Units 0.0-20.0 [facility] Comment on above: Negative 0.0 - 20.0 Equivocal 20.1 - 24.9 Positive >24.9Mitochondrial (M2) Antibodies are found in 90-96% ofpatients with primary biliary cirrhosis. Serum or plasma actin IgG an tibody assay (units/volume)Ordered By: Henry Gruber on 01-03-2023 Actin IgG Qn 11 Units 0-19 [facility] Comment on above: Negative 0 - 19 Weak positive 20 - 30 Moderate to strong positive >30 Actin Antibodies are found in 52-85% of patients with autoimmune hepatitis or chronic active hepatitis and in 22% of patients with primary biliary cirrhosis.Performed at: [facility] [id number] Director: Ishmael De Los Santos PhD, Phone: [phone] Serum or plasma albumin bell urement (mass/volume)Ordered By: Henry Gruber on 01-03-2023 Albumin [Mass/Vol] 2.6 g/dL 3.2-5.0 [facility] Serum or plasma albumin/glob ulin mass ratioOrdered By: Henry Gruber on 01-03-2023 Albumin/Globulin [Mass ratio] 0.7 {ratio} 0.9-2.4 [facility] Serum or plasma calcium bell urement (mass/volume)Ordered By: Henry Gruber on 01-03-2023 Calcium [Mass/Vol] 8.6 mg/dL 8.5-10.1 [facility] Serum or plasma creatinine m easurement (mass/volume)Ordered By: Henry Gruber on 01-03-2023 Creatinine [Mass/Vol] 0.61 mg/dL 0.70-1.30 [facility] Comment on above: The validity of the calculated GFR & GFRAA in patients over 70 years has not been determined. Clinical correlation is essential. Serum or plasma ferritin allie surement (mass/volume)Ordered By: Henry Gruber on 01-03-2023 Ferritin [Mass/Vol] 246 ng/mL 26-388 [facility] Serum or plasma hepatitis B virus surface antigen detection by immunoassayOrdered By: Henry Gruber on 01-03-2023 HBV surface Ag IA Ql Negative Negative [facility] Serum or plasma iron saturat ion measurement (mass fraction)Ordered By: Henry Gruber on 01-03-2023 Iron saturation [Mass fraction] 22.8 % 15.0-55.0 [facility] Serum or plasma urea nitroge n measurement (mass/volume)Ordered By: Henry Gruber on 01-03-2023 Urea nitrogen [Mass/Vol] 8 mg/dL 7-18 [facility] Thin prep Papanicolaou smear with manual screeningOrdered By: Henry Gruber on 01-03-2023 Thin prep Papanicolaou smear with manual screening 44 U/L [facility] Thin prep Papanicolaou smear with manual screening 6 -15 [facility] No Panel InformationOrdered By: Henry Gruber on 10-18-2022 Thyroid Stimulating Hormone (TSH) 12.70 uIU/mL 0.358-3.74 [facility] Vitamin D 25-Hydroxy 46.4 ng/mL [facility] Comment on above: Vitamin D 25(OH) Sta tus Range Deficiency <20 ng/mL (50nmol/L) Insufficiency 20 - 30 ng/mL (50 - 75 nmol/L) Sufficiency 30 - 100 ng/mL (75 - 250 nmol/L) Toxicity >100 ng/mL (>250 nmol/L) Bacteria identified Cx Nom ( Wound)Ordered By: Henry Gruber on 10-03-2022 Wound Culture Proteus mirabilis [facility] Bacteria identified Cx Nom ( Wound)Ordered By: Henry Gruber on 10-01-2022 Wound Culture Proteus mirabilis [facility] Gram stain for investigation of transfusion reactionOrdered By: Henry Gruber on 10-01-2022 Microscopic observation Gram stain Nom (Unsp spec) [facility] Basophil percentageOrdered B y: Henry Gruber on 09-20-2022 Chloride [Moles/Vol] 98 mmol/L 98-107 [facility] Glucose [Mass/Vol] 92 mg/dL 74-106 [facility] Potassium [Moles/Vol] 3.6 mmol/L 3.5-5.1 [facility] Sodium [Moles/Vol] 134 mmol/L 136-145 [facility] Laboratory - Chemistry and C hemistry - challengeOrdered By: Henry Gruber on 09-20-2022 CO2 [Moles/Vol] 31.0 mmol/L 21.0-32.0 [facility] Urea nitrogen/Creatinine [Mass ratio] 20.3 mg/mg 10- [facility] No Panel InformationOrdered By: Henry Gruber on 09-20-2022 Estimated GFR (MDRD) Amer 272 mL/min >60 [facility] Comment on above: GFR Calc Estimated GFR (MDRD) Non-Af Amer 225 mL/min >60 [facility] Comment on above: Non- GFR Calc Prostate Specific Antigen Screen 5.57 ng/mL 0.00-4.00 [facility] Comment on above: This test was perfor med using the TPSA assay method for the[employer] chemistry system. Values obtained with differentassay methods cannot be used interchangably.When changing PSA assays in the course of monitoring apatient, additional sequential testing should be carriedout to confirm baseline values. Serum or plasma calcium bell urement (mass/volume)Ordered By: Henry Gruber on 09-20-2022 Calcium [Mass/Vol] 8.5 mg/dL 8.5-10.1 [facility] Serum or plasma creatinine m easurement (mass/volume)Ordered By: Henry Gruber on 09-20-2022 Creatinine [Mass/Vol] 0.39 mg/dL 0.70-1.30 [facility] Comment on above: The validity of the calculated GFR & GFRAA in patients over 70 years has not been determined. Clinical correlation is essential. Serum or plasma urea nitroge n measurement (mass/volume)Ordered By: Henry Gruber on 09-20-2022 Urea nitrogen [Mass/Vol] 8 mg/dL 7-18 [facility] Thin prep Papanicolaou smear with manual screeningOrdered By: Henry Gruber on 09-20-2022 Thin prep Papanicolaou smear with manual screening 09 10-15 [facility] Basophil percentageOrdered B y: Henry Gruber on 09-15-2022 Chloride [Moles/Vol] 93 mmol/L 98-107 [facility] Glucose [Mass/Vol] 95 mg/dL 74-106 [facility] Potassium [Moles/Vol] 3.0 mmol/L 3.5-5.1 [facility] Sodium [Moles/Vol] 132 mmol/L 136-145 [facility] Laboratory - Chemistry and C hemistry - challengeOrdered By: Henry Gruber on 09-15-2022 CO2 [Moles/Vol] 33.0 mmol/L 21.0-32.0 [facility] Urea nitrogen/Creatinine [Mass ratio] 16.6 mg/mg 10-20 [facility] No Panel InformationOrdered By: Henry Gruber on 09-15-2022 Estimated GFR (MDRD) Amer 252 mL/min >60 [facility] Comment on above: GFR Calc Estimated GFR (MDRD) Non-Af Amer 208 mL/min >60 [facility] Comment on above: Non- GFR Calc Serum or plasma calcium bell urement (mass/volume)Ordered By: Henry Gruber on 09-15-2022 Calcium [Mass/Vol] 8.6 mg/dL 8.5-10.1 [facility] Serum or plasma creatinine m easurement (mass/volume)Ordered By: Henry Gruber on 09-15-2022 Creatinine [Mass/Vol] 0.42 mg/dL 0.70-1.30 [facility] Comment on above: The validity of the calculated GFR & GFRAA in patients over 70 years has not been determined. Clinical correlation is essential. Serum or plasma urea nitroge n measurement (mass/volume)Ordered By: Henry Gruber on 09-15-2022 Urea nitrogen [Mass/Vol] 7 mg/dL 7-18 [facility] Thin prep Papanicolaou smear with manual screeningOrdered By: Henry Gruber on 09-15-2022 Thin prep Papanicolaou smear with manual screening 6 5-15 [facility] Basophil percentageOrdered B y: Henry Gruber on 09-13-2022 Chloride [Moles/Vol] 92 mmol/L 98-107 [facility] Glucose [Mass/Vol] 92 mg/dL 74-106 [facility] Potassium [Moles/Vol] 3.0 mmol/L 3.5-5.1 [facility] Sodium [Moles/Vol] 131 mmol/L 136-145 [facility] WBC (Bld) [#/Vol] 9.6 10*3/uL 4.4-11.0 [facility] Blood erythrocytes count (nu mber/volume)Ordered By: Henry Gruber on 09-13-2022 RBC (Bld) [#/Vol] 2.88 10*6/uL 4.6-6.2 [facility] Blood hemoglobin measurement (mass/volume)Ordered By: Henry Gruber on 09-13-2022 Hemoglobin (Bld) [Mass/Vol] 10.0 g/dL 13.0-16.5 [facility] Blood platelet mean volumeOr dered By: Henry Gruber on 09-13-2022 Platelet mean volume (Bld) [Entitic vol] 10.5 fL 6.2-12.0 [facility] Determination of erythrocyte mean corpuscular volume (MCV)Ordered By: Henry Gruber on 09-13-2022 MCV (RBC) [Entitic vol] 103.1 fL 80-94 [facility] Hematocrit Auto (Bld) [Volum e fraction]Ordered By: Henry Gruber on 09-13-2022 Hematocrit (Bld) [Volume fraction] 29.7 % 40-54 [facility] Laboratory - Chemistry and C hemistry - challengeOrdered By: Henry Gruber on 09-13-2022 CO2 [Moles/Vol] 32.0 mmol/L 21.0-32.0 [facility] Urea nitrogen/Creatinine [Mass ratio] 23.9 mg/mg 10-20 [facility] Laboratory - Hematology and Cell countsOrdered By: Henry Gruber on 09-13-2022 Erythrocyte distribution width (RBC) [Entitic vol] 57.1 fL 35.1-43.9 [facility] Erythrocyte distribution width (RBC) [Ratio] 15.3 % 11.6-14.6 [facility] MCH (RBC) [Entitic mass] 34.7 pg 27.0-32.0 [facility] MCHC Auto (RBC) [Mass/Vol]Or dered By: Hnery Gruber on 09-13-2022 MCHC (RBC) [Mass/Vol] 33.7 g/dL 32-36 [facility] No Panel InformationOrdered By: Henry Gruber on 09-13-2022 Estimated GFR (MDRD) Amer 286 mL/min >60 [facility] Comment on above: GFR Calc Estimated GFR (MDRD) Non-Af Amer 237 mL/min >60 [facility] Comment on above: Non- GFR Calc Platelets bldOrdered By: Pedro Gruber on 09-13-2022 Platelets (Bld) [#/Vol] 327 10*3/uL 150-450 [facility] Serum or plasma calcium bell urement (mass/volume)Ordered By: Henry Gruber on 09-13-2022 Calcium [Mass/Vol] 8.6 mg/dL 8.5-10.1 [facility] Serum or plasma creatinine m easurement (mass/volume)Ordered By: Henry Gruber on 09-13-2022 Creatinine [Mass/Vol] 0.38 mg/dL 0.70-1.30 [facility] Comment on above: The validity of the calculated GFR & GFRAA in patients over 70 years has not been determined. Clinical correlation is essential. Serum or plasma urea nitroge n measurement (mass/volume)Ordered By: Henry Gruber on 09-13-2022 Urea nitrogen [Mass/Vol] 9 mg/dL 7-18 [facility] Thin prep Papanicolaou smear with manual screeningOrdered By: Henry Gruber on 09-13-2022 Thin prep Papanicolaou smear with manual screening 7 5-15 [facility] Basophil percentageOrdered B y: Henry Gruber on 09-06-2022 Bilirubin [Mass/Vol] 1.40 mg/dL 0.20-1.00 [facility] Comment on above: For patients on eltr ombopag therapy, use of Dimension Weaver TBIL is not recommended. Chloride [Moles/Vol] 87 mmol/L 98-107 [facility] System Cholesterol [Mass/Vol] 121 mg/dL <200 [facility] Comment on above: <200 mg/dL Desirable 200-240 mg/dL Borderline >240 mg/dL High Risk Glucose [Mass/Vol] 115 mg/dL 74-106 [facility] Comment on above: Fasting Glucose resu lt from 100 to 125 mg/dL suggests IMPAIRED HOMEOSTASIS per A.D.A. criteria. Potassium [Moles/Vol] 3.1 mmol/L 3.5-5.1 [facility] Protein [Mass/Vol] 6.2 g/dL 6.4-8.2 [facility] Sodium [Moles/Vol] 122 mmol/L 136-145 [facility] Triglyceride [Mass/Vol] 130 mg/dL <199 [facility] Comment on above: The drugs N-Acetylcy steine and Metamizole may falsely depress this assay.Serum Triglycerides Reference Interval Normal <150 mg/dL Borderline high 150 - 199 mg/dL High 200 - 499 mg/dL Very High > or = 500 mg/dL WBC (Bld) [#/Vol] 11.2 10*3/uL 4.4-11.0 [facility] Blood erythrocytes count (nu mber/volume)Ordered By: Henry Gruber on 09-06-2022 RBC (Bld) [#/Vol] 2.83 10*6/uL 4.6-6.2 [facility] Blood hemoglobin measurement (mass/volume)Ordered By: Henry Gruber on 09-06-2022 Hemoglobin (Bld) [Mass/Vol] 10.1 g/dL 13.0-16.5 [facility] Blood platelet mean volumeOr dered By: Henry Gruber on 09-06-2022 Platelet mean volume (Bld) [Entitic vol] 10.9 fL 6.2-12.0 [facility] Determination of erythrocyte mean corpuscular volume (MCV)Ordered By: Henry Gruber on 09-06-2022 MCV (RBC) [Entitic vol] 101.4 fL 80-94 [facility] Hematocrit Auto (Bld) [Volum e fraction]Ordered By: Henry Gruber on 09-06-2022 Hematocrit (Bld) [Volume fraction] 28.7 % 40-54 [facility] Laboratory - Chemistry and C hemistry - challengeOrdered By: Henry Gruber on 09-06-2022 ALP [Catalytic activity/Vol] 328 U/L 45-117 [facility] ALT [Catalytic activity/Vol] 92 U/L 16-61 [facility] CO2 [Moles/Vol] 27.0 mmol/L 21.0-32.0 [facility] Globulin (S) [Mass/Vol] 3.5 g/dL 2.2-4.2 [facility] Urea nitrogen/Creatinine [Mass ratio] 17.1 mg/mg 10-20 [facility] Laboratory - Hematology and Cell countsOrdered By: Henry Gruber on 09-06-2022 Erythrocyte distribution width (RBC) [Entitic vol] 57.7 fL 35.1-43.9 [facility] Erythrocyte distribution width (RBC) [Ratio] 15.6 % 11.6-14.6 [facility] MCH (RBC) [Entitic mass] 35.7 pg 27.0-32.0 [facility] Auto (RBC) [Mass/Vol]Or dered By: Henry Gruber on 09-06-2022 MCHC (RBC) [Mass/Vol] 35.2 g/dL 32-36 [facility] No Panel InformationOrdered By: Henry Gruber on 09-06-2022 Estimated GFR (MDRD) Amer 260 mL/min >60 [facility] Comment on above: GFR Calc Estimated GFR (MDRD) Non-Af Amer 215 mL/min >60 [facility] Comment on above: Non- GFR Calc Thyroid Stimulating Hormone (TSH) 10.20 uIU/mL 0.358-3.74 [facility] Vitamin D 25-Hydroxy 15.9 ng/mL [facility] Comment on above: Vitamin D 25(OH) Sta tus Range Deficiency <20 ng/mL (50nmol/L) Insufficiency 20 - 30 ng/mL (50 - 75 nmol/L) Sufficiency 30 - 100 ng/mL (75 - 250 nmol/L) Toxicity >100 ng/mL (>250 nmol/L) Platelets bldOrdered By: Pedro Gruber on 09-06-2022 Platelets (Bld) [#/Vol] 372 10*3/uL 150-450 [facility] Serum or plasma albumin bell urement (mass/volume)Ordered By: Henry Gruber on 09-06-2022 Albumin [Mass/Vol] 2.7 g/dL 3.2-5.0 [facility] Serum or plasma albumin/glob ulin mass ratioOrdered By: Henry Gruber on 09-06-2022 Albumin/Globulin [Mass ratio] 0.8 {ratio} 0.9-2.4 [facility] Serum or plasma calcium bell urement (mass/volume)Ordered By: Henry Gruber on 09-06-2022 Calcium [Mass/Vol] 8.3 mg/dL 8.5-10.1 [facility] Serum or plasma cholesterol in HDL measurement (mass/volume)Ordered By: Henry Gruber on 09-06-2022 Cholesterol in HDL [Mass/Vol] 39 mg/dL >40 [facility] Comment on above: The drugs N-Acetylcy steine and Metamizole may falsely depress this assay. Reference Range HDL <40 mg/dL Low HDL Cholesterol HDL >or= 60 mg/dL High HDL Cholesterol Serum or plasma cholesterol in VLDL measurement (mass/volume)Ordered By: Henry Gruber on 09-06-2022 Cholesterol in VLDL [Mass/Vol] 26 mg/dL 5-40 [facility] Serum or plasma creatinine m easurement (mass/volume)Ordered By: Henry Gruber on 09-06-2022 Creatinine [Mass/Vol] 0.41 mg/dL 0.70-1.30 [facility] Comment on above: The validity of the calculated GFR & GFRAA in patients over 70 years has not been determined. Clinical correlation is essential. Serum or plasma low density lipoprotein (LDL) cholesterol measurement (mass/volume)Ordered By: Henry Gruber on 09-06-2022 Cholesterol in LDL [Mass/Vol] 56 mg/dL 0-130 [facility] Serum or plasma urea nitroge n measurement (mass/volume)Ordered By: Henry Gruber on 09-06-2022 Urea nitrogen [Mass/Vol] 7 mg/dL 7-18 [facility] Thin prep Papanicolaou smear with manual screeningOrdered By: Henry Gruber on 09-06-2022 Thin prep Papanicolaou smear with manual screening 193 U/L 15-37 [facility] Thin prep Papanicolaou smear with manual screening 8 5-15 [facility] Whole blood hemoglobin A1c/t otal hemoglobin ratio (mass fraction)Ordered By: Henry Gruber on 09-06-2022 HbA1c (Bld) [Mass fraction] 5.9 % 3.8-5.6 [facility] Comment on above: Normal < 5.7 % Predi abetic 5.7 - 6.4 % Diabetic >or= 6.5 % Please note range changes. GLUCOSE-POCTon 09-04-2022 Glucose [Mass/Vol] 115 mg/dL High 74 - 99 [facility] Comment on above: Performed By: #### R ENAL #### [facility] [address] [place] [address] Glucose [Mass/Vol] 138 mg/dL High 74 - 99 [facility] Comment on above: Performed By: #### G ZOHREH #### [facility] [address] [place] [address] Laboratory - Chemistry and C hemistry - challengeon 09-04-2022 Glucose [Mass/Vol] 115 mg/dL above high threshold 74 - 99 [facility] Work Phone: Glucose [Mass/Vol] 138 mg/dL above high threshold 74 - 99 [facility] Work Phone: Order Reconciliationon 09-04 Order Reconciliation [...] Discharge Reconc (more content not included)... Normal [facility] RENAL FUNCTION PANELon 09-04 Albumin [Mass/Vol] 3.4 g/dL Normal 3.4 - 5.0 [facility] Comment on above: Performed By: #### M G #### [facility] [address] [place] [address] Anion gap [Moles/Vol] 10 mmol/L Normal 10 - 20 [facility] Comment on above: Performed By: #### M G #### [facility] [address] [place] [address] Calcium [Mass/Vol] 8.0 mg/dL Low 8.6 - 10.3 [facility] Comment on above: Performed By: #### M G #### [facility] [address] [place] [address] Chloride [Moles/Vol] 90 mmol/L Low 98 - 107 [facility] Comment on above: Performed By: #### M G #### [facility] [address] [place] [address] Creatinine [Mass/Vol] 0.43 mg/dL Low 0.50 - 1.30 [facility] Comment on above: Performed By: #### M G #### [facility] [address] [place] [address] eGFR MALE >90 Normal >90 [facility] Comment on above: Result Comment: CALC ULATIONS OF ESTIMATED GFR ARE PERFORMED USING THE 2020 CKD-EPI STUDY REFIT EQUATION WITHOUT THE RACE VARIABLE FOR THE IDMS-TRACEABLE CREATININE METHODS. https://jasn.asnjournals.org/content/early/ASN.4203083 988 Performed By: #### M G #### [facility] [address] [place] [address] Glucose [Mass/Vol] 110 mg/dL High 74 - 99 [facility] Comment on above: Performed By: #### M G #### [facility] [address] [place] [address] HCO3 (Bld) [Moles/Vol] 32 mmol/L Normal 21 - 32 [facility] Comment on above: Performed By: #### M G #### [facility] [address] [place] [address] Phosphate [Mass/Vol] 2.2 mg/dL Low 2.5 - 4.9 [facility] Comment on above: Result Comment: The performance characteristics of phosphorus testing in heparinized plasma have been validated by the individual laboratory site where testing is performed. Testing on heparinized plasma is not approved by the FDA; however, such approval is not necessary. Performed By: #### M G #### [facility] [address] [place] [address] Potassium [Moles/Vol] 3.6 mmol/L Normal 3.5 - 5.3 [facility] Comment on above: Performed By: #### M G #### [facility] [address] [place] [address] Sodium [Moles/Vol] 128 mmol/L Low 136 - 145 [facility] Comment on above: Performed By: #### M G #### [facility] [address] [place] [address] Urea nitrogen [Mass/Vol] 7 mg/dL Normal 6 - 23 [facility] Comment on above: Performed By: #### M G #### [facility] [address] [place] [address] Renal Function Panelon 09-04 Albumin BCP dye [Mass/Vol] 3.4 g/dL 3.4 - 5.0 -[facility] [employer] Work Phone: Anion gap [Moles/Vol] 10 mmol/L 10 - 20 [facility] [employer] Work Phone: Calcium [Mass/Vol] 8.0 mg/dL below low threshold 8.6 - 10.3 -[facility] [employer] Work Phone: Chloride [Moles/Vol] 90 mmol/L below low threshold 98 - 107 [facility] [employer] Work Phone: CO2 [Moles/Vol] 32 mmol/L 21 - 32 -[facility] [employer] Work Phone: Creatinine [Mass/Vol] 0.43 mg/dL below low threshold See Below -[facility] [employer] Work Phone: Comment on above: Reference Range: 0.5 0 - 1.30 Glucose [Mass/Vol] 110 mg/dL above high threshold 74 - 99 [facility] Work Phone: Phosphate [Mass/Vol] 2.2 mg/dL below low threshold 2.5 - 4.[address] [facility] Work Phone: Comment on above: The performance fransisca acteristics of phosphorus testing in heparinized plasma have been validated by the individual laboratory site where testing is performed. Testing on heparinized plasma is not approved by the FDA; however, such approval is not necessary. Potassium [Moles/Vol] 3.6 mmol/L 3.5 - 5.[address] [facility] Work Phone: Sodium [Moles/Vol] 128 mmol/L below low threshold 136 - [address] [facility] Work Phone: Urea nitrogen [Mass/Vol] 7 mg/dL 6 - [address] [facility] Work Phone: Renal Function Panel >90 >90 [facility] Work Phone: Comment on above: CALCULATIONS OF ROSANA MATED GFR ARE PERFORMED USING THE 2020 CKD-EPI STUDY REFIT EQUATION WITHOUT THE RACE VARIABLE FOR THE IDMS-TRACEABLE CREATININE METHODS.https://jasn.asnjournals.org/content//ASN .9864023932 CBCon 09-03-2022 Erythrocyte distribution width (RBC) [Ratio] 15.3 % High 11.5 - 14.5 [facility] Comment on above: Performed By: #### M G #### [facility] [address] [place] [address] Hematocrit (Bld) [Volume fraction] 29.0 % Low 41.0 - 52.0 [facility] Comment on above: Performed By: #### M G #### [facility] [address] [place] [address] Hemoglobin (Bld) [Mass/Vol] 10.1 g/dL Low 13.5 - 17.5 [facility] Comment on above: Performed By: #### M G #### [facility] [address] [place] [address] MCHC (RBC) [Mass/Vol] 34.8 g/dL Normal 32.0 - 36.0 [facility] Comment on above: Performed By: #### M G #### [facility] [address] [place] [address] MCV (RBC) [Entitic vol] 102 fL High 80 - 100 [facility] Comment on above: Performed By: #### M G #### [facility] [address] [place] [address] NUCLEATED RBC 0.2 /100 WBC Normal 0.0-0.0 [facility] Comment on above: Performed By: #### M G #### [facility] [address] [place] [address] Platelets (Bld) [#/Vol] 245 10*3/uL Normal 150 - 450 [facility] Comment on above: Performed By: #### M G #### [facility] [address] [place] [address] RBC 2.85 x10E12/L Low 4.50 - 5.90 [facility] Comment on above: Performed By: #### M G #### [facility] [address] [place] [address] WBC (Bld) [#/Vol] 9.0 10*3/uL Normal 4.4 - 11.3 [facility] Comment on above: Performed By: #### M G #### [facility] [address] [place] [address] Consult-Cardiac Surgeryon Consult-Cardiac Surgery Service: Service: Cardiac [...] Known Allergies: Objective: Objective Information: T PRBPMAPSpO2 [id number]/7295% Date/Time09/03 12: 12: 12: 12: 12:38 Range(36.1C [...] arterial hyperten (more content not included)... Normal [facility] Daily Progress Note-Medicine on 09-03-2022 Daily Progress Note-Medicine Service: Medicine Subjective Data: CHRISTOS LYONS is a 77 year old Male who is Hospital Day # 7. On room air, feels better, tolerating PO intake, brother bedside, afebrile, no overnight events reported. Objective Data: Objective Information: T PRBPMAPSpO2 [id number]/6695% Date/Time09/03 8: 8: 8: 8: 8:44 Range(36.1C - 36.8C ) (68 - 89 ) (16 - 18 ) (102 - 141 )/ (63 - 83 ) (92% - 100% ) Pain reported at 09/02 21:34: 0 = None ---- Intake and Output ----- Mn/Dy/Year TimeIntakeOutputNet Sep 02, 2022 2:00 [id number] The Intake and Output Totals for the last 24 hours are: IntakeOutputNet [id number] Physical Exam by System: Constitutional: no acute distress Respiratory/Thorax: fairly CTAB Cardiovascular: regular rhythm, no murmurs Gastrointestinal: Nontender, non distended. Extremities: trace edema in legs, b/l xerosis. Neurological: alert and oriented, moving all extremities Psychological: normal affect Skin: no rashes or lesions Recent Lab Results: Results: CBC: 09/03/2022 05:37 \\ Hgb / \\ 10.1 L / WBC Plt 9.0 245 / Hct \\ / 29.0 L \\ RBC: 2.85 L MCV: 102 H RFP: 09/03/2022 05:37 NA+ Cl- BUN / 130 L 89 L 8 / ------ Glucose - 118 H K+ HCO3- Creat \\ 3.3 L 31 0.47 L \\ Calcium : 8.6Anion Gap : 13 Albumin [...] Updated: 03-Sep-2022 09:56 by Caesar Sal) Normal [facility] Daily Progress Note-Nephrolo gyon 09-03-2022 Daily Progress Note-Nephrology Service: Nephrology Subjective Data: CHRISTOS LYONS is a 77 year old Male who is Hospital Day # 7. Seen and examined. Working with therapy. No acute events, offers no new complaints. Chart/labs/meds/notes/imag ing/VS reviewed. Objective Data: Objective Information: T PRBPMAPSpO2 [id number]/7295% Date/Time09/03 12: 12: 12: 12: 12:38 Range(36.1C - 36.8C ) (68 - 89 ) (16 - 18 ) (102 - 141 )/ (63 - 83 ) (92% - 100% ) Pain reported at 09/02 21:34: 0 = None ---- Intake and Output ----- Mn/Dy/Year TimeIntakeOutputNet Sep 03, 2022 2:00 [id number] The Intake and Output Totals for the last 24 hours are: IntakeOutputNet [id number] Physical Exam by System: Constitutional: Well developed, [...] Recent Lab Results: Results: CBC: 09/03/2022 05:37 \\ Hgb / \\ 10.1 L / WBC Plt 9.0 245 / Hct \\ / 29.0 L \\ RBC: 2.85 L MCV: 102 H RFP: 09/03/2022 05:37 NA+ Cl- BUN / 130 L 89 L 8 / ------ Glucose - 118 H K+ HCO3- Creat \\ 3.3 L 31 0.47 L \\ Calcium : 8.6Anion Gap : 13 Albumin [...] GERD. Sma (more content not included)... Normal [facility] GLUCOSE-POCTon 09-03-2022 Glucose [Mass/Vol] 136 mg/dL High 74 - 99 [facility] Comment on above: Performed By: #### G ZOHREH #### [facility] [address] [place] [address] Glucose [Mass/Vol] 122 mg/dL High 74 - 99 [facility] Comment on above: Performed By: #### G ZOHREH ####[facility] [id number] [place] [address] Glucose [Mass/Vol] 147 mg/dL High 74 - 99 [facility] Comment on above: Performed By: #### G ZOHREH #### [facility] [address] [place] [address] Laboratory - Chemistry and C hemistry - challengeon 09-03-2022 Glucose [Mass/Vol] 136 mg/dL above high threshold 74 - 99 [facility] Work Phone: Glucose [Mass/Vol] 122 mg/dL above high threshold 74 - 99 -[facility] Work Phone: Glucose [Mass/Vol] 147 mg/dL above high threshold 74 - 99 -[facility] Work Phone: Laboratory - Hematology and Cell countson 09-03-2022 Erythrocyte distribution width (RBC) [Ratio] 15.3 % above high threshold See Below [facility] Work Phone: Comment on above: Reference Range: 11. 5 - 14.5 Hematocrit (Bld) [Volume fraction] 29.0 % below low threshold See Below [facility] Work Phone: Comment on above: Reference Range: 41. 0 - 52.0 Hemoglobin (Bld) [Mass/Vol] 10.1 g/dL below low threshold See Below [facility] Work Phone: Comment on above: Reference Range: 13. 5 - 17.5 MCHC (RBC) [Mass/Vol] 34.8 g/dL See Below [facility] Work Phone: Comment on above: Reference Range: 32. 0 - 36.0 MCV (RBC) [Entitic vol] 102 fL above high threshold 80 - [address] [facility] Work Phone: Platelets (Bld) [#/Vol] 245 10*3/uL 150 - [address] [facility] Work Phone: RBC (Bld) [#/Vol] 2.85 {x10E12/L} below low threshold See Below [facility] Work Phone: Comment on above: Reference Range: 4.5 0 - 5.90 WBC (Bld) [#/Vol] 9.0 10*3/uL 4.4 - 11.3 [facility] Work Phone: No Panel Informationon 09-03 0.2 {/100_WBC} 0.0-0.[address] [facility] Work Phone: RENAL FUNCTION PANELon 09-03 Albumin [Mass/Vol] 3.3 g/dL Low 3.4 - 5.0 [facility] Comment on above: Performed By: #### R ENAL #### [facility] [address] [place] [address] Anion gap [Moles/Vol] 13 mmol/L Normal 10 - 20 [facility] Comment on above: Performed By: #### R ENAL #### [facility] [address] [place] [address] Calcium [Mass/Vol] 8.6 mg/dL Normal 8.6 - 10.3 [facility] Comment on above: Performed By: #### R ENAL #### [facility] [address] [place] [address] Chloride [Moles/Vol] 89 mmol/L Low 98 - 107 [facility] Comment on above: Performed By: #### R ENAL #### [facility] [address] [place] [address] Creatinine [Mass/Vol] 0.47 mg/dL Low 0.50 - 1.30 [facility] Comment on above: Performed By: #### R ENAL #### [facility] [address] [place] [address] eGFR MALE >90 Normal >90 [facility] Comment on above: Result Comment: CALC ULATIONS OF ESTIMATED GFR ARE PERFORMED USING THE 2020 CKD-EPI STUDY REFIT EQUATION WITHOUT THE RACE VARIABLE FOR THE IDMS-TRACEABLE CREATININE METHODS. https://jasn.asnjournals.org/content/early//ASN.5520075 988 Performed By: #### R ENAL #### [facility] [address] [place] [address] Glucose [Mass/Vol] 118 mg/dL High 74 - 99 [facility] Comment on above: Performed By: #### R ENAL #### [facility] [address] [place] [address] HCO3 (Bld) [Moles/Vol] 31 mmol/L Normal 21 - 32 [facility] Comment on above: Performed By: #### R ENAL #### [facility] [address] [place] [address] Phosphate [Mass/Vol] 1.9 mg/dL Low 2.5 - 4.9 [facility] Comment on above: Result Comment: The performance characteristics of phosphorus testing in heparinized plasma have been validated by the individual laboratory site where testing is performed. Testing on heparinized plasma is not approved by the FDA; however, such approval is not necessary. Performed By: #### R ENAL #### [facility] [address] [place] [address] Potassium [Moles/Vol] 3.3 mmol/L Low 3.5 - 5.3 [facility] Comment on above: Performed By: #### R ENAL #### [facility] [address] [place] [address] Sodium [Moles/Vol] 130 mmol/L Low 136 - 145 [facility] Comment on above: Performed By: #### R ENAL #### [facility] [address] [place] [id number] Urea nitrogen [Mass/Vol] 8 mg/dL Normal 6 - 23 [facility] Comment on above: Performed By: #### R ENAL #### [facility] [address] [place] [id number] Rehab Note-RENOVATOR MACHINE OPERATOR DYSPHAGIA WOLF ATMENTon 09-03-2022 Rehab Note-RENOVATOR MACHINE OPERATOR DYSPHAGIA TREATMENT Rehab: Info: Mode of TreatmentSLP DYSPHAGIA TREATMENT Time IN14:40 Time OUT15:07 Total Treatment [id number] Communicate/Swallow: Swallow Assessment/Intervention/Tr eatment OutcomePt seen for [...] Discharge date unknown at time of visit. RENOVATOR MACHINE OPERATOR to follow during acute care stay. Question if RENOVATOR MACHINE OPERATOR services required post d/c. Electronic Signatures: Alysa Galvez (RENOVATOR MACHINE OPERATOR) (Signed 03-Sep-2022 15:14) Entered: Info, Communicate/Swallow, Short Term Goals Authored: Info, Communicate/Swallow Last Updated: 03-Sep-2022 15:14 by Alysa Galvez (RENOVATOR MACHINE OPERATOR) Normal [facility] Rehab Note-attemptedon 09-03 Rehab Note-attempted Rehab: Info: DisciplineSPTA attempt tx Mode of Treatmentattempted Time IN13:22 Reason Treatment Not Performedpatient/family declined treatment; pt declined tx at this time stated "I don't want to do it". pt also noted having bowel movements at this time, RN notified. Electronic Signatures: Prudencio Franco (SPTA) (Signed 28-Apr-2023 13:25) Authored: Nick Guadalupe (PT) (Signed 06-Sep-2022 09:41) Co-Signer: Davis Stanley (COMPLIANCE NURSE) (Signed 03-Sep-2022 13:30) Authored: Angel Last Updated: 06-Sep-2022 09:41 by Nick De Jesus (PT) Normal [facility] Rehab Fklz-nx-codjrgdtevc Rehab Vzir-ne-vxzbaafek Rehab: Info: Disciplineoccupational therapist Mode of Treatmentco-treatment; occupational therapy Time IN15:05 Time OUT15:30 Total Treatment [id number] Total Minutes CommentCo-tx due to skilled technique [...] and seemed to tolerate functional activity Patient/Family/Caregiver Comments/Observations"I did well today standing" Brother and nephew visiting pt Vision/Cognition: Affect/Mental Status (Cognitive)WFL Orientation Status (Cognition)oriented x 3 Mobility/Tone: Bed Mobility Assessment/Interventionssu pine to sit; sit to supine Fsyvnx-lm-Adi [place] (Bed Mobility)moderate assist (50% patient effort); 2 person assist; verbal cues Jpo-re-Ybqppd [place] (Bed Mobility)verbal cues; 2 person assist; moderate [...] device and sequencing to complete sit<>stand. Sit-Stand [place] (Transfers)moderate assist (50% patient effort); 2 person assist; verbal cues Sit-Stand Assistive Device (Transfers)gait belt; walker, front-wheeled Stand-Sit [place] (Transfers)2 person assist; moderate assist (50% patient [...] ADL: BADL Assessment/Interventiontoi leting; lower body dressing [place] Level (Lower Body Dressing)dependent (less than 25% patient effort) [place] Level (Toileting)dependent (less than 25% patient effort) Motor: Upper Extremity Range of Motion (Therapeutic Exercise)shoulder flexion/extension, bilateral; elbow flexion/extension, bilateral; forearm supination/pronation, bilateral; wrist flexion/extension, bilateral Hand (Therapeutic Exercise)finger flexion/extension, bilateral; thumb finger opposition, bilateral; hand computer tape librarian, bilateral Upper Extremity (Therapeutic Exercise)With verbal instruction [...] Static (Balance)fair balance Sitting, Dynamic (Balance)fair balance Tlj-gw-Fsipa (Balance)fair balance Standing, Static (Balance)poor balance Standing, [...] Score11 Short Term Goals: Bed Mobility: Date [id number] Bed Mobility: [place] [place] Level Goalmaximum assist (25% patien (more content not included)... Normal [facility] Rehab Note-occupational therapist assistant christopher 09-03-2022 Rehab Note-occupational therapist Rehab: Info: Disciplineoccupational therapist Mode of Treatmentattempted Time IN13:10 Reason Treatment Not Performedpatient/family declined treatment Treatment Considerations/CommentsOT for follow up treatment session per POC. Nursing cleared pt with no concerns. Upon arrival to room, pt in bed with HOB elevated to sitting position. Wet towels wrapped around both feet. Pt/family report "it's for his dry feet, they are trying to get the dry skin off." Pt also reports that he was soiled from a BM. Pt educated on goals of treatment session and benefits of activity participating in his self-care to increase strength, endurance, and independence. Pt continued to decline and states "I'm leaving today or this weekend." Attempts to encourage pt to actively participate in self care unsuccessful. No treatment session this date. Nurse unavailable on floor; updated via MySongToYou. Electronic Signatures: Ila Jacob (OT) (Signed 03-Sep-2022 13:46) Authored: Info Last Updated: 03-Sep-2022 13:46 by Ila Jacob (OT) Normal [facility] Rehab Note-physical therapy nurse - co-treatment with OTon 09-03-2022 Rehab Note-physical therapy nurse - co-treatment with OT Rehab: Info: Disciplinephysical therapy director; co-treatment with OT to enhance pt performance and safety Participated in performance of tx and documentation under the direct supervision of CI, student Prudencio WINN Mode of Treatmentphysical therapy; co-treatment Time IN15:05 Time OUT15:30 Total Treatment [id number] Patient in ... at end of sessionbed, [...] sit to supine; scooting/bridging; bed mobility activities [place] (Bed Mobility)2 person assist; set up; verbal cues; moderate assist (50% patient effort) Scoot/Bridge [place] (Bed Mobility)2 person assist; set up; verbal cues; dependent (less than 25% patient effort) Qhqbri-aw-Ote [place] (Bed Mobility)moderate assist (50% patient effort); 2 person assist; verbal cues; set up Ssd-lz-Bifoln [place] (Bed Mobility)verbal cues; set up; 2 person [...] of RLE under COG once standing Sit-Stand [place] (Transfers)moderate assist (50% patient effort); 2 person assist; verbal cues; set up Sit-Stand Assistive Device (Transfers)gait belt; walker, front-wheeled Stand-Sit [place] (Transfers)2 person assist; moderate assist (50% patient effort); verbal cues; set up Stand-Sit Assistive Device (Transfers)gait belt; walker, front-wheeled Safety Issues Impacting Function (Mobility)impulsivity; safety precaution awareness; positioning of assistive device; judgment; sequencing abilities; ability to follow commands Impairments Impacting Function (Mobility)strength; postural/trunk control; balance; endurance/activity tolerance; grasp; motor control; coordination Motor: Sitting, Static (Balance)fair balance Sitting, Dynamic (Balance)fair balance Kmf-ui-Hvdwq (Balance)fair balance Standing, Static (Balance)poor balance Standing, [...] Score10 Short Term Goals: Bed Mobility: Date [id number] Bed Mobility: [place] Level Goalminimum assist (75% patients effort) Bed Mobility: Time Frame for Goal2 wks Transfer: Established [id number] Transfer: Transfer Type Htwsxpm-me-bthkg/chair-to- bed; rfq-sd-tmmbw/xbnmo-ma-syf Transfer: [place] Level Goalminimum assist (75% patients effort) Transfer: Assistive Device Goalrolling walker Transfer: Time Frame for Goal2 wks Gait: Established [id number] Gait: [place] Level Goalmodified independent Gait: Assistive Device Goalrolling walker Gait: Distance Goalx 20ft Gait: Time Frame for Goal2 wks Education: Education - TopicImportance and benefits of antiembolic exercises DC Recommendations: Discharge Recommendation ( (more content not included)... Normal [facility] Renal Function Panelon 09-03 Albumin BCP dye [Mass/Vol] 3.3 g/dL below low threshold 3.4 - 5.0 -[facility] Work Phone: Anion gap [Moles/Vol] 13 mmol/L 10 - 20 -[facility] Work Phone: Calcium [Mass/Vol] 8.6 mg/dL 8.6 - 10.3 MP-[facility] Work Phone: Chloride [Moles/Vol] 89 mmol/L below low threshold 98 - 107 -[facility] Work Phone: CO2 [Moles/Vol] 31 mmol/L 21 - 32 -[facility] Work Phone: Creatinine [Mass/Vol] 0.47 mg/dL below low threshold See Below [facility] Work Phone: Comment on above: Reference Range: 0.5 0 - 1.30 Glucose [Mass/Vol] 118 mg/dL above high threshold 74 - 99 -[facility] Work Phone: Phosphate [Mass/Vol] 1.9 mg/dL below low threshold 2.5 - 4.9 -[facility] Work Phone: Comment on above: The performance fransisca acteristics of phosphorus testing in heparinized plasma have been validated by the individual laboratory site where testing is performed. Testing on heparinized plasma is not approved by the FDA; however, such approval is not necessary. Potassium [Moles/Vol] 3.3 mmol/L below low threshold 3.5 - 5.3 -[facility] Work Phone: Sodium [Moles/Vol] 130 mmol/L below low threshold 136 - 145 -[facility] Work Phone: Urea nitrogen [Mass/Vol] 8 mg/dL 6 - 23 -[facility] Work Phone: Renal Function Panel >90 >90 [facility] Work Phone: Comment on above: CALCULATIONS OF ROSANA MATED GFR ARE PERFORMED USING THE 2020 CKD-EPI STUDY REFIT EQUATION WITHOUT THE RACE VARIABLE FOR THE IDMS-TRACEABLE CREATININE METHODS.https://jasn.asnjournals.org/content//ASN .5776459582 CBCon 09-02-2022 Erythrocyte distribution width (RBC) [Ratio] 15.0 % High 11.5 - 14.5 [facility] Comment on above: Performed By: #### M G #### [facility] [address] [place] [address] Hematocrit (Bld) [Volume fraction] 30.2 % Low 41.0 - 52.0 [facility] Comment on above: Performed By: #### M G #### [facility] [address] [place] [address] Hemoglobin (Bld) [Mass/Vol] 10.7 g/dL Low 13.5 - 17.5 [facility] Comment on above: Performed By: #### M G #### [facility] [address] [place] [address] MCHC (RBC) [Mass/Vol] 35.4 g/dL Normal 32.0 - 36.0 [facility] Comment on above: Performed By: #### M G #### [facility] [address] [place] [address] MCV (RBC) [Entitic vol] 100 fL Normal 80 - 100 [facility] Comment on above: Performed By: #### M G #### [facility] [address] [place] [address] NUCLEATED RBC 0.2 /100 WBC Normal 0.0-0.0 [facility] Comment on above: Performed By: #### M G #### [facility] [address] [place] [address] Platelets (Bld) [#/Vol] 187 10*3/uL Normal 150 - 450 [facility] Comment on above: Performed By: #### M G #### [facility] [address] [place] [address] RBC 3.02 x10E12/L Low 4.50 - 5.90 [facility] Comment on above: Performed By: #### M G #### [facility] [address] [place] [address] WBC (Bld) [#/Vol] 9.1 10*3/uL Normal 4.4 - 11.3 [facility] Comment on above: Performed By: #### M G #### [facility] [address] [place] [address] Clinical Event Note-EGD resu ltson 09-02-2022 Clinical [...] Updated: 02-Sep-2022 14:47 by Matt Prince) Normal [facility] Consult-Podiatryon Consult-Podiatry Service: Service: Podiatry Consult: Consult requested by (Attending Name): Caesar Sal Reason: b/l LE skin changes History of Present Illness: HPI: CHRISTOS LYONS is a 77 year old Male with a past medical history of hypertension, hyperlipidemia, anemia, alcohol use disorder, BPH, anxiety, hypothyroidism, gouty arthritis who presented to [facility] complaining of worsening dysphagia to [...] Known Allergies: Objective: Objective Information: T PRBPMAPSpO2 Value36.69882880/7194% Date/Time09/02 8: 8: 8: 8: 8:09 Range(36.5C - 37C ) (61 - 74 ) (16 - 17 ) (102 - 137 )/ (55 - 80 ) (93% - 96% ) Highest temp of 37 C was recorded at 09/01 19:51 Pain reported at 09/02 5:12: 0 = None ---- Intake and Output ----- [facility]Dy[facility] Sep 02, 2022 6:00 [id number] Sep 01, 2022 10:00 [id number] Sep 01, 2022 2:00 [id number] The Intake and Output Totals for the last 24 hours are: [facility] [id number] ---Intake--- Enteral - Oral PO Fluid/Feed (oral): [...] mg SubCut (more content not included)... Normal [facility] Daily Progress Note-Medicine on 09-02-2022 Daily Progress Note-Medicine Service: Medicine Subjective Data: LUTKUS, CHRISTOS R is a 77 year old Male who is Hospital Day # 6. On room air, no withdrawal symptoms. Afebrile. Diarrhea improving, had soft stool. Brother bedside. Pt overall feels better but mobility is very weak. Objective Data: Objective Information: T PRBPMAPSpO2 Value36.86508368/7194% Date/Time09/02 8: 8: 8: 8: 8:09 Range(36.5C - 37C ) (61 - 74 ) (16 - 17 ) (102 - 137 )/ (55 - 80 ) (93% - 96% ) Highest temp of 37 C was recorded at 09/01 19:51 Pain reported at 09/02 5:12: 0 = None ---- Intake and Output ----- Mn/Dy/Year TimeIntakeOutputNet Sep 02, 2022 6:00 [id number] Sep 01, 2022 10:00 [id number] Sep 01, 2022 2:00 [id number] The Intake and Output Totals for the last 24 hours are: IntakeOutputNet [id number] Physical Exam by System: Constitutional: no acute distress Respiratory/Thorax: fairly CTAB Cardiovascular: regular rhythm, no murmurs Gastrointestinal: Nontender, non distended. Extremities: trace edema in legs Neurological: alert and oriented, moving all extremities Psychological: normal affect Skin: no rashes or lesions Recent Lab Results: Results: CBC: 09/02/2022 07:01 \\ Hgb / \\ 10.7 L / WBC Plt 9.1 187 / Hct \\ / 30.2 L \\ RBC: 3.02 L MCV: 100 RFP: 09/02/2022 07:01 NA+ Cl- BUN / 131 L 90 L 7 / ------ Glucose - 160 H K+ HCO3- Creat \\ 3.2 L 31 0.44 L \\ Calcium : 8.6Anion Gap : 13 Albumin [...] Updated: 02-Sep-2022 10:20 by Caesar Sal) Normal [facility] Daily Progress Note-Nephrolo adamon 09-02-2022 Daily Progress Note-Nephrology Service: Nephrology Subjective Data: CHRISTOS LYONS is a 77 year old Male who is Hospital Day # 6. Seen and examined. Status post endoscopy. Resting comfortably bed. No acute events, offers no new complaints. Chart/labs/meds/notes/imag ing/VS reviewed. Objective Data: Objective Information: T PRBPMAPSpO2 Value36.69289538/6395% Date/Time09/02 16: 16: 16: 16: 16:25 Range(36.1C - 37C ) (61 - 74 ) (16 - 17 ) (102 - 141 )/ (55 - 80 ) (93% - 96% ) Highest temp of 37 C was recorded at 09/01 19:51 Pain reported at 09/02 15:13: 0 = None ---- Intake and Output ----- Mn/Dy/Year [facility]IntakeOutnew [facility] Sep 02, 2022 2:00 [id number] Sep 02, 2022 6:00 [id number] Sep 01, 2022 10:00 [id number] The Intake and Output Totals for the last 24 hours are: IntakeOutnew [facility] center[facility] [id number] Physical Exam by System: Constitutional: Well developed, [...] Recent Lab Results: Results: CBC: 09/02/2022 07:01 \\ Hgb / \\ 10.7 L / WBC Plt 9.1 187 / Hct \\ / 30.2 L \\ RBC: 3.02 L MCV: 100 RFP: 09/02/2022 07:01 NA+ Cl- BUN / 131 L 90 L 7 / ------ Glucose - 160 H K+ HCO3- Creat \\ 3.2 L 31 0.44 L \\ Calcium : 8.6Anion Gap : 13 Albumin [...] that technique (more content not included)... Normal [facility] GLUCOSE-POCTon 09-02-2022 Glucose [Mass/Vol] 125 mg/dL High 74 - 99 [facility] Comment on above: Performed By: #### G ZOHREH #### [facility] [address] [place] [address] Glucose [Mass/Vol] 136 mg/dL High 74 - 99 [facility] Comment on above: Performed By: #### G ZOHREH #### [facility] [address] [place] [address] Laboratory - Chemistry and C hemistry - challengeon 09-02-2022 Glucose [Mass/Vol] 125 mg/dL above high threshold 74 - [address] [facility] Work Phone: Glucose [Mass/Vol] 136 mg/dL above high threshold 74 - 99 [facility] Work Phone: Laboratory - Hematology and Cell countson 09-02-2022 Erythrocyte distribution width (RBC) [Ratio] 15.0 % above high threshold See Below [facility] Work Phone: Comment on above: Reference Range: 11. 5 - 14.5 Hematocrit (Bld) [Volume fraction] 30.2 % below low threshold See Below [facility] Work Phone: Comment on above: Reference Range: 41. 0 - 52.0 Hemoglobin (Bld) [Mass/Vol] 10.7 g/dL below low threshold See Below [facility] Work Phone: Comment on above: Reference Range: 13. 5 - 17.5 MCHC (RBC) [Mass/Vol] 35.4 g/dL See Below [facility] Work Phone: Comment on above: Reference Range: 32. 0 - 36.0 MCV (RBC) [Entitic vol] 100 fL 80 - 100 [facility] Work Phone: Platelets (Bld) [#/Vol] 187 10*3/uL 150 - 450 [facility] Work Phone: RBC (Bld) [#/Vol] 3.02 {x10E12/L} below low threshold See Below [facility] Work Phone: Comment on above: Reference Range: 4.5 0 - 5.90 WBC (Bld) [#/Vol] 9.1 10*3/uL 4.4 - 11.3 [facility] Work Phone: No Panel Informationon 09-02 [facility] Work Phone: [email or web address]} [facility] Work Phone: [facility] Work Phone: 0.2 {/100_WBC} 0.0-0.0 [facility] Work Phone: [facility] Work Phone: PHOSPHORUSon 09-02-2022 PHOSPHORUS Canceled Normal [facility] Comment on above: Order Comment: TEST PHOSPHORUS WAS CANCELLED, 09/02/2022 01:01 No specimen sent. Result Comment: The performance characteristics of phosphorus testing in heparinized plasma have been validated by the individual laboratory site where testing is performed. Testing on heparinized plasma is not approved by the FDA; however, such approval is not necessary. Performed By: #### G ZOHREH #### [facility] [address] [place] [address] RENAL FUNCTION PANELon 09-02 Albumin [Mass/Vol] 3.5 g/dL Normal 3.4 - 5.0 [facility] Comment on above: Performed By: #### M G #### [facility] [address] [place] [address] Anion gap [Moles/Vol] 13 mmol/L Normal 10 - 20 [facility] Comment on above: Performed By: #### M G #### [facility] [address] [place] [address] Calcium [Mass/Vol] 8.6 mg/dL Normal 8.6 - 10.3 [facility] Comment on above: Performed By: #### M G #### [facility] [address] [place] [address] Chloride [Moles/Vol] 90 mmol/L Low 98 - 107 [facility] Comment on above: Performed By: #### M G #### [facility] [address] [place] [address] Creatinine [Mass/Vol] 0.44 mg/dL Low 0.50 - 1.30 [facility] Comment on above: Performed By: #### M G #### [facility] [address] [place] [address] eGFR MALE >90 Normal >90 [facility] Comment on above: Result Comment: CALC ULATIONS OF ESTIMATED GFR ARE PERFORMED USING THE 2020 CKD-EPI STUDY REFIT EQUATION WITHOUT THE RACE VARIABLE FOR THE IDMS-TRACEABLE CREATININE METHODS. https://jasn.asnjournals.org/content/early/ASN.2827185 988 Performed By: #### M G #### [facility] [address] [place] [address] Glucose [Mass/Vol] 160 mg/dL High 74 - 99 [facility] Comment on above: Performed By: #### M G #### [facility] [address] [place] [address] HCO3 (Bld) [Moles/Vol] 31 mmol/L Normal 21 - 32 [facility] Comment on above: Performed By: #### M G #### [facility] [address] [place] [address] Phosphate [Mass/Vol] 1.6 mg/dL Low 2.5 - 4.9 [facility] Comment on above: Result Comment: The performance characteristics of phosphorus testing in heparinized plasma have been validated by the individual laboratory site where testing is performed. Testing on heparinized plasma is not approved by the FDA; however, such approval is not necessary. Performed By: #### M G #### [facility] [address] [place] [address] Potassium [Moles/Vol] 3.2 mmol/L Low 3.5 - 5.3 [facility] Comment on above: Performed By: #### M G #### [facility] [address] [place] [address] Sodium [Moles/Vol] 131 mmol/L Low 136 - 145 [facility] Comment on above: Performed By: #### M G #### [facility] [address] [place] [address] Urea nitrogen [Mass/Vol] 7 mg/dL Normal 6 - 23 [facility] Comment on above: Performed By: #### M G #### [facility] [address] [place] [address] Rehab Note-speech language p athologiston 09-02-2022 Rehab Note-speech language pathologist Rehab: Info: Disciplinespeech language pathologist Mode of Treatmentattempted Patient/Family/Caregiver Comments/ObservationsSpeec h therapy deferred at this time due to scheduled procedure. Short Term Goals: Bed Mobility: Date [id number] Bed Mobility: [place] Level Goalmaximum assist (25% patients effort) Bed Mobility: Physical Assist Level Goal1-person assist Bed Mobility: Time Frame for Goal2 wks Transfer: Established Transfer: Transfer Type Goaltoilet Transfer: [place] Level Goalmaximum assist (25% patients effort) Transfer: [...] Frame for Goal2 wks Grooming: Established Grooming: [place] Level Goalmodified independent Grooming: Physical Assist Level Goal1-person assist Grooming: Time Frame for Goal2 wks Upper Body Dressing: Established Upper Body Dressing: [place] Level Goalmoderate assist (50% patients effort) Upper Body Dressing: Physical Assist Level Goal1-person assist Upper Body Dressing: Time Frame for Goal2 wks Lower Body Dressing: Established Lower Body Dressing: [place] Level Goalmaximum assist (25% patients effort) Lower Body Dressing: Physical Assist Level Goal1-person assist Lower Body Dressing: Time Frame for Goal2 wks Toileting: Established [id number] Toileting: [place] Level Goalmaximum assist (25% patients effort) Toileting: Physical Assist Level Goal1-person assist Toileting: Time Frame for Goal2 wks Electronic Signatures: Wanda Manzano (RENOVATOR MACHINE OPERATOR) (Signed 02-Sep-2022 13:50) Authored: Info, Short Term Goals Last Updated: 02-Sep-2022 13:50 by Wanda Manzano (RENOVATOR MACHINE OPERATOR) Normal [facility] Renal Function Panelon 09-02 Albumin BCP dye [Mass/Vol] 3.5 g/dL 3.4 - 5.0 [facility] Work Phone: Anion gap [Moles/Vol] 13 mmol/L 10 - 20 [facility] Work Phone: Calcium [Mass/Vol] 8.6 mg/dL 8.6 - 10.3 [facility] Work Phone: Chloride [Moles/Vol] 90 mmol/L below low threshold 98 - 107 [facility] Work Phone: CO2 [Moles/Vol] 31 mmol/L 21 - 32 [facility] Work Phone: Creatinine [Mass/Vol] 0.44 mg/dL below low threshold See Below [facility] Work Phone: Comment on above: Reference Range: 0.5 0 - 1.30 Glucose [Mass/Vol] 160 mg/dL above high threshold 74 - 99 [facility] Work Phone: Phosphate [Mass/Vol] 1.6 mg/dL below low threshold 2.5 - 4.9 [facility] Work Phone: Comment on above: The performance fransisca acteristics of phosphorus testing in heparinized plasma have been validated by the individual laboratory site where testing is performed. Testing on heparinized plasma is not approved by the FDA; however, such approval is not necessary. Potassium [Moles/Vol] 3.2 mmol/L below low threshold 3.5 - 5.[address] [facility] Work Phone: Sodium [Moles/Vol] 131 mmol/L below low threshold 136 - [address] [facility] Work Phone: Urea nitrogen [Mass/Vol] 7 mg/dL 6 - 23 [facility] Work Phone: Renal Function Panel >90 >90 [facility] Work Phone: Comment on above: CALCULATIONS OF ROSANA MATED GFR ARE PERFORMED USING THE 2020 CKD-EPI STUDY REFIT EQUATION WITHOUT THE RACE VARIABLE FOR THE IDMS-TRACEABLE CREATININE METHODS.https://jasn.asnjournals.org/content/early/ASN .3351772535 [facility] Cytologyon 09-02-[address] [facility] Cytology Patient Name CHRISTOS LYONS Date of Procedure: 09/02/2022 Date Reported: 09/06/2022 Date Received: 09/02/2022 Date of / Sex 1945 (Age: 77) / M Race: WHITE Submitting Physician: MATT PRINCE MD Other External # FINAL CYTOLOGICAL INTERPRETATION A. ESOPHAGEAL BRUSH: NO MALIGNANT CELLS IDENTIFIED Unremarkable squamous cells and rare columnar cells No fungal organisms identified Slide(s) initially screened by a Manager Science at [facility], [address] [place] [address] Electronically Signed Out By KERRY BRADFORD DO By the signature on this report, the individual or group listed as making the Final Interpretation/Diagnosis certifies that they have reviewed this case. Slide(s) initially screened by a Manager Science at [facility] Diagnostic interpretation performed at [facility] [address] 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 ESOPHAGEAL BRUSH: RECEIVED 1 [place] in 30cc OF COLORLESS,CLEAR CYTOLYT WITH PARTICLES. SPECIMEN SENT FOR ANALYSIS TO THE CYTOLOGY DEPARTMENT AT [facility]. [facility] Department of Pathology [address] [place] [address] Normal [facility] Comment on above: Performed By: #### C #### [facility] Cytology [address] [place] [address] Surgical Pathology Depar tmenton 09-02-[address] [facility] Surgical Pathology Department Name CHRISTOS LYONS Pathologist: POLO GRECO MD Date of Procedure: 09/02/2022 Date Received: 09/02/2022 Date Reported 09/06/2022 Submitting Physician: MATT PRINCE MD Location: [address] External # FINAL DIAGNOSIS A. GASTRIC ANTRUM AND BODY, BIOPSIES: --GASTRIC MUCOSA WITH NO SIGNIFICANT HISTOPATHOLOGICAL ABNORMALITIES. --HELICOBACTER IS NOT IDENTIFIED. Electronically Signed Out By POLO GRECO MD/[facility] By the signature on this report, the individual or group listed as making the Final Interpretation/Diagnosis certifies that they have reviewed this case. Diagnostic interpretation performed at [place] [address] Clinical History: Rule out H.Pylori Specimens Submitted As: A: GASTRIC ANTRUM AND BODY,COLD BIOPSY Gross Description: Received in formalin, labeled with the patient's name and hospital number and "A gastric antrum body", are two fragments of bai, soft tissue aggregating to 0.7 x 0.2 x 0.2 cm. The specimen is submitted in toto in one cassette. DMB dmb/09/03/2022 [facility] Department of Pathology [address] [place] [address] Normal [facility] Comment on above: Performed By: #### U HCS #### [facility] Surgical Pathology Department [address] [place] [address] Upper GI endoscopyon 023 Upper GI endoscopy PATIENTNAME Patient Name: Christos Lyons EXAMDATE Procedure Date: 09/02/2022 2:24 PM PATIENTID PATIENTACCOUNTNUM PATIENTDOB Date of : 1945 PATIENTROOM Site: [place] [address] ETHNICITY Ethnicity: Not or RACE Race: White PROVDR Attending MD: Matt Prince MD, [id number] ENDOPROCEDURENAME Procedure: Upper GI endoscopy INDICATION Indications: Dysphagia PRIMARYPROVIDER Providers: Matt Prince MD (Doctor) , Jose Pfeiffer RN (Nurse) , Lizett Lau RN (Nurse) EDREFPROVIDER Referring MD: CURRENT_MEDS Medicines: [...] 0 hours 5 minutes 45 seconds Normal [facility] BASIC METABOLIC PANELon - Anion gap [Moles/Vol] 11 mmol/L Normal 10 - 20 [facility] Comment on above: Order Comment: SOD C ALLED RB TO LA NENA ROTHMAN, 09/01/2022 08:36 Performed By: #### V TB12 #### [facility] [address] [place] [address] Calcium [Mass/Vol] 7.3 mg/dL Low 8.6 - 10.3 [facility] Comment on above: Order Comment: SOD C ALLED RB TO LA NENA ROTHMAN, 09/01/2022 08:36 Performed By: #### V TB12 #### [facility] [address] [place] [address] Chloride [Moles/Vol] 80 mmol/L Low 98 - 107 [facility] Comment on above: Order Comment: SOD C ALLED RB TO LA NENA ROTHMAN, 09/01/2022 08:36 Performed By: #### V TB12 #### [facility] [address] [place] [address] Creatinine [Mass/Vol] 0.41 mg/dL Low 0.50 - 1.30 [facility] Comment on above: Order Comment: SOD C ALLED RB TO LA NENA ROTHMAN, 09/01/2022 08:36 Performed By: #### V TB12 #### [facility] [address] [place] [address] eGFR MALE >90 Normal >90 [facility] Comment on above: Order Comment: SOD C ALLED RB TO LA NENA ROTHMAN, 09/01/2022 08:36 Result Comment: CALC ULATIONS OF ESTIMATED GFR ARE PERFORMED USING THE 2020 CKD-EPI STUDY REFIT EQUATION WITHOUT THE RACE VARIABLE FOR THE IDMS-TRACEABLE CREATININE METHODS. https://jasn.asnjournals.org/content/early/ASN.1252982 988 Performed By: #### V TB12 #### [facility] [address] [place] [address] Glucose [Mass/Vol] 112 mg/dL High 74 - 99 [facility] Comment on above: Order Comment: SOD C ALLED RB TO LA NENA ROTHMAN, 09/01/2022 08:36 Performed By: #### V TB12 #### [facility] [address] [place] [address] HCO3 (Bld) [Moles/Vol] 31 mmol/L Normal 21 - 32 [facility] Comment on above: Order Comment: SOD C ALLED RB TO LA NENA ROTHMAN, 09/01/2022 08:36 Performed By: #### V TB12 #### [facility] [address] [place] [address] Potassium [Moles/Vol] 3.2 mmol/L Low 3.5 - 5.3 [facility] Comment on above: Order Comment: SOD C ALLED RB TO LA NENA ROTHMAN, 09/01/2022 08:36 Performed By: #### V TB12 #### [facility] [address] [place] [address] Sodium [Moles/Vol] 119 mmol/L Critically low 136 - 145 [facility] Comment on above: Order Comment: SOD C ALLED RB TO LA NENA ROTHMAN, 09/01/2022 08:36 Result Comment: SOD CALLED RB TO LA NENA CLEANINGER, 09/01/2022 08:36 Performed By: #### V TB12 #### [facility] [address] [place] [address] Urea nitrogen [Mass/Vol] 8 mg/dL Normal 6 - 23 [facility] Comment on above: Order Comment: SOD C ALLED RB TO LA NENA CLEANINGER, 09/01/2022 08:36 Performed By: #### V TB12 #### [facility] [address] [place] [address] Daily Progress Note-Gastroen terologyon 09-01-2022 Daily Progress Note-Gastroenterolog y Service: Gastroenterology Subjective Data: CHRISTOS LYONS is a 77 year old Male who is Hospital Day # 5. Denies focal abd pain. Reports some loose stools. No rectal bleeding. Objective Data: Objective Information: T PRBPMAPSpO2 [id number]/7696% Date/Time09/01 8: 8: 8: 8: 8:14 Range(36.6C - 37.3C ) (63 - 70 ) (16 - 18 ) (101 - 129 )/ (58 - 76 ) (93% - 96% ) Highest temp of 37.3 C was recorded at 08/31 23:19 Pain reported at 09/01 4:21: sleeping ---- Intake and Output ----- Mn/Dy/Year TimeIntakeOutputNet Sep 01, 2022 6:00 [id number] Aug 31, 2022 10:00 [id number] The Intake and Output Totals for the last 24 hours are: IntakeOutputNet [id number] Physical Exam by System: Constitutional: Well developed, [...] Glucose - 112 H K+ HCO3- Creat \\ 3.2 L 31 0.41 L \\ Calcium : 7.3 L Anion Gap : [...] Last Updated: 01-Sep-2022 09:15 by Matt Prince) [facility] Daily Progress Note-Medicine on 09-01-2022 Daily Progress Note-Medicine Service: Medicine Subjective Data: CHRISTOS LYONS is a 77 year old Male who is Hospital Day # 5. On room air, brother bedside. Pt tolerating PO intake. Reports diarrhea. Has condom cath. Afebrile. No overnight events reported. Objective Data: Objective Information: T PRBPMAPSpO2 [id number]/7493% Date/Time09/01 11: 11: 11: 11: 11:55 Range(36.5C - 37.3C ) (61 - 70 ) (16 - 18 ) (101 - 129 )/ (58 - 76 ) (93% - 96% ) Highest temp of 37.3 C was recorded at 08/31 23:19 Pain reported at 09/01 11:09: 0 = None ---- Intake and Output ----- Mn/Dy/Year TimeIntakeOutputNet Sep 01, 2022 2:00 [id number] Sep 01, 2022 6:00 [id number] Aug 31, 2022 10:00 [id number] The Intake and Output Totals for the last 24 hours are: IntakeOutputNet [id number] Physical Exam by System: Constitutional: no acute [...] Glucose - 112 H K+ HCO3- Creat \\ 3.2 L 31 0.41 L \\ Calcium : 7.3 L Anion Gap : [...] Updated: 01-Sep-2022 17:04 by Caesar Sal) Normal [facility] Daily Progress Note-Nephrolo gyon 09-01-2022 Daily Progress Note-Nephrology Service: Nephrology Subjective Data: CHRISTOS LYONS is a 77 year old Male who is Hospital Day # 5. Seen and examined. Working with therapy. No acute events, he does not offer new complaints. Chart/labs/meds/notes/imag ing/VS reviewed. Objective Data: Objective Information: T PRBPMAPSpO2 Value36.49448532/7493% Date/Time09/01 11:5509/01 11: 11: 11: 11:55 Range(36.5C - 37.3C ) (61 - 70 ) (16 - 18 ) (101 - 129 )/ (58 - 76 ) (93% - 96% ) Highest temp of 37.3 C was recorded at 08/31 23:19 Pain reported at 09/01 11:09: 0 = None ---- Intake and Output ----- Mn/Dy/Year TimeIntakeOutputNet Sep 01, 2022 2:00 [id number] Sep 01, 2022 6:00 [id number] Aug 31, 2022 10:00 [id number] The Intake and Output Totals for the last 24 hours are: IntakeOutputNet [id number] Physical Exam by System: Constitutional: Well developed, [...] Glucose - 112 H K+ HCO3- Creat \\ 3.2 L 31 0.41 L \\ Calcium : 7.3 L Anion Gap : [...] Small slidin (more content not included)... Normal [facility] Laboratory - Chemistry and C hemistry - challengeon 09-01-2022 Anion gap [Moles/Vol] 11 mmol/L 10 - [address] [facility] Work Phone: Calcium [Mass/Vol] 7.3 mg/dL below low threshold 8.6 - 10.[address] [facility] Work Phone: Chloride [Moles/Vol] 80 mmol/L below low threshold 98 - [address] [facility] Work Phone: CO2 [Moles/Vol] 31 mmol/L 21 - [address] [facility] Work Phone: Creatinine [Mass/Vol] 0.41 mg/dL below low threshold See Below [facility] Work Phone: Comment on above: Reference Range: 0.5 0 - 1.30 Glucose [Mass/Vol] 112 mg/dL above high threshold 74 - [address] [facility] Work Phone: Potassium [Moles/Vol] 3.2 mmol/L below low threshold 3.5 - 5.[address] [facility] Work Phone: Sodium [Moles/Vol] 119 mmol/L Critically low 136 - 145 [facility] Work Phone: Comment on above: SOD CALLED RB TO ALL VAZQUEZ CLEANINGER, 09/01/2022 08:36 Urea nitrogen [Mass/Vol] 8 mg/dL 6 - [address] [facility] Work Phone: MAGNESIUMon 09-01-2022 Magnesium [Mass/Vol] 1.90 mg/dL Normal 1.60 - 2.40 [facility] Comment on above: Performed By: #### M G #### [facility] [address] [place] [address] Magnesium, Serumon Magnesium [Mass/Vol] 1.90 mg/dL See Below [facility] Work Phone: Comment on above: Reference Range: 1.6 0 - 2.40 No Panel Informationon 09-01 >90 >[address] [facility] Work Phone: Comment on above: CALCULATIONS OF ROSANA MATED GFR ARE PERFORMED USING THE 2020 CKD-EPI STUDY REFIT EQUATION WITHOUT THE RACE VARIABLE FOR THE IDMS-TRACEABLE CREATININE METHODS.https://jasn.asnjournals.org/content/early/ASN .9983148908 Phosphorus, Serumon 09-02-19 23 Phosphate [Mass/Vol] Canceled MP[facility] Work Phone: Comment on above: The performance fransisca acteristics of phosphorus testing in heparinized plasma have been validated by the individual laboratory site where testing is performed. Testing on heparinized plasma is not approved by the FDA; however, such approval is not necessary. Rehab Ldul-ls-wlfnftgmllv Rehab Pesv-gw-orsgotkxi Rehab: Info: Disciplineoccupational therapist Mode of Treatmentco-treatment Time IN13:17 Time OUT13:45 Total Treatment [id number] Total Minutes Commentco-treatment with PT to maximize [...] to sit; sit to supine; scooting/bridging Scoot/Bridge [place] (Bed Mobility)maximum assist (25% patient effort); 2 person assist; MAX A x2 for lateral scooting towards R side while seated EOB, required VCs for hand placement and anterior weight shifting Klwqbx-tl-Fwl [place] (Bed Mobility)moderate assist (50% patient effort); 2 person assist; MOD A x2 for managing BLE to edge of bed and for lifting trunk, performed with HOB slightly elevated Qzw-fp-Ixyehm [place] (Bed Mobility)maximum assist (25% patient effort); 2 person assist; MAX A x2 for lifting BLE back to bed and for lowering/positioning trunk Transfer Assessment/Interventionssi t to stand transfer; stand to sit transfer Sit-Stand [place] (Transfers)maximum assist (25% patient effort); 2 person assist; MAX A x2 to stand from EOB with FWW and arm n arm assist, VCs for hand placement Sit-Stand Assistive Device (Transfers)walker, front-wheeled Stand-Sit [place] (Transfers)maximum assist (25% patient effort); 2 person assist Stand-Sit Assistive Device (Transfers)walker, front-wheeled Comment, Gait/Stairs Trainingpt attempted lateral stepping towards R side with FWW however unsuccessful due to inadequate weight shifting and difficulty advancing BLE. Impairments Impacting Function (Mobility)balance; endurance/activity tolerance; strength; postural/trunk control ADL: BADL Assessment/Interventionlow er body dressing; toileting [place] Level (Lower Body Dressing)dependent (less than 25% patient effort) Comment (Lower Body Dressing)Total A for donning yoandy socks due to fatigue and decreased postural strength [place] Level (Toileting)dependent (less than 25% patient effort); [...] reliance for stability Sitting, Dynamic (Balance)fair - Ftu-kt-Mxytr (Balance)poor balance MAX A x2 stand Standing, [...] Score11 Short Term Goals: Bed Mobility: Date [id number] Bed Mobility: [place] Level Goalmaximum assist (25% patients effort) Bed Mobility: Physical Assist Level Goal1-person assist Bed Mobility: Time Frame for Goal2 wks Transfer: Established [id number] Transfer: Transfer Type Goaltoilet Transfer: [place] Level Goalmaximum assist (25% patients effort) Transfer: Physica (more content not included)... Normal [facility] Rehab Note-physical therapy nurse - Co-treat with OT magdiel 09-01-2022 Rehab Note-physical therapy nurse - Co-treat with OT to Rehab: Info: Disciplinephysical therapy director; Co-treat with OT to maximize patient participation and safty Participated in performance of tx and documentation under the direct supervision of CI, student Prudenico WINN Mode of Treatmentphysical therapy; co-treatment Time IN13:17 Time OUT13:45 Total Treatment [id number] Patient in ... at end of sessionbed, [...] sit to supine; scooting/bridging; bed mobility activities [place] (Bed Mobility)maximum assist (25% patient effort); 2 person assist; set up; verbal cues Scoot/Bridge [place] (Bed Mobility)maximum assist (25% patient effort); 2 person assist; set up; verbal cues Nirsrm-wb-Moe [place] (Bed Mobility)moderate assist (50% patient effort); 2 person assist; verbal cues; set up Jqx-gx-Junjcr [place] (Bed Mobility)verbal cues; set up; maximum assist [...] demos with anterior lean upon standing. Sit-Stand [place] (Transfers)moderate assist (50% patient effort); 2 person assist; verbal cues; set up Sit-Stand Assistive Device (Transfers)gait belt; walker, front-wheeled Stand-Sit [place] (Transfers)2 person assist; moderate assist (50% patient effort); verbal cues; set up Stand-Sit Assistive Device (Transfers)gait belt; walker, front-wheeled Safety Issues Impacting Function (Mobility)impulsivity; safety precaution awareness; positioning of assistive device; judgment; sequencing abilities Impairments Impacting Function (Mobility)strength; postural/trunk control; balance; endurance/activity tolerance; grasp; motor control Motor: Sitting, Static (Balance)fair balance Sitting, Dynamic (Balance)fair balance Jaf-yx-Alwec (Balance)fair balance Standing, Static (Balance)poor balance Standing, [...] Score10 Short Term Goals: Bed Mobility: Date [id number] Bed Mobility: [place] Level Goalminimum assist (75% patients effort) Bed Mobility: Time Frame for Goal2 wks Transfer: Established [id number] Transfer: Transfer Type Gvivqbu-nq-rtwsw/chair-to- bed; via-wc-nspss/qfnhx-ek-nif Transfer: [place] Level Goalminimum assist (75% patients effort) Transfer: Assistive Device Goalrolling walker Transfer: Time Frame for Goal2 wks Gait: Established [id number] Gait: [place] Level Goalmodified independent Gait: Assistive Device Goalrolling [...] Recommendations Jason (more content not included)... Normal [facility] Rehab Fovn-owllfc-vnqdyvdn p athologyon 09-01-2022 Rehab Ekyk-velcfw-leluaesy pathology Rehab: Info: Disciplinespeech language pathologist Mode of Treatmentspeech-language pathology Time IN12:30 Time OUT13:00 Total Treatment [id number] Patient Effortexcellent Patient Response to TreatmentPt doing much better overall. Pt intake has appeared to return to normal. Pt continues to have a fear of something being wrong with his throat or esophagus and is still eager to have the EGD to confirm. Communicate/Swallow: RENOVATOR MACHINE OPERATOR Diet RecommendationsRegular RENOVATOR MACHINE OPERATOR Liquid Consistency RecommendationsThin 0 (Regular thin) Recommended [...] speech therapy. Short Term Goals: Dysphagia/Swallow: Established [id number] Dysphagia/Swallow: Goal Details1. Pt will swallow the [...] therapy upon discharge Electronic Signatures: Wanda Manzano (RENOVATOR MACHINE OPERATOR) (Signed 01-Sep-2022 14:58) Authored: Info, Communicate/Swallow, Short Term Goals, Education, Outcome Summary, DC Recommendations Last Updated: 01-Sep-2022 14:58 by Wanda Manzano (RENOVATOR MACHINE OPERATOR) Normal [facility] STOOL PATHOGEN PCR PANELon 0 09-01-2022 CAMPYLOBACTER GP. Not detected Normal NOT DETECTED [facility] Comment on above: Performed By: #### M G #### [facility] [address] [place] [address] NOROVIRUS GI/GII Not detected Normal NOT DETECTED [facility] Comment on above: Performed By: #### M G #### [facility] [address] [place] [id number] ROTAVIRUS A Not detected Normal NOT DETECTED [facility] Comment on above: Result Comment: The enteric PCR panel is a panel of sensitive and specific amplified nucleic acid tests indicated as an aid in the diagnosis of specific bacterial and viral agents of gastrointestinal illness, in conjunction with other clinical, laboratory, and epidemiological information. This test is not approved for monitoring these infections. Monitoring is available for Salmonella and Shigella infections-request test "Stool PCR Follow-Up (STLPF)". Monitoring tests are not available at this time for other enteric agents in this panel. Performed By: #### M G #### [facility] [address] [place] [address] SALMONELLA SP. Not detected Normal NOT DETECTED [facility] Comment on above: Performed By: #### M G #### [facility] [address] [place] [address] SHIGA TOXIN 1 Not detected Normal NOT DETECTED [facility] Comment on above: Performed By: #### M G #### [facility] [address] [place] [address] SHIGA TOXIN 2 Not detected Normal NOT DETECTED [facility] Comment on above: Performed By: #### M G #### [facility] [address] [place] [address] SHIGELLA SP. Not detected Normal NOT DETECTED [facility] Comment on above: Performed By: #### M G #### [facility] [address] [place] [address] [employer] Not detected Normal NOT DETECTED [facility] Comment on above: Performed By: #### M G #### [facility] [address] [place] [address] YERSINIA ENTEROCOLITICA Not detected Normal NOT DETECTED [facility] Comment on above: Performed By: #### M G #### [facility] [address] [place] [address] Lab Specimen Source Normal [facility] Comment on above: Performed By: #### M G #### [facility] [address] [place] [address] CBCon 08-31-2022 Erythrocyte distribution width (RBC) [Ratio] 14.3 % Normal 11.5 - 14.5 [facility] Comment on above: Performed By: #### M G #### [facility] [address] [place] [address] Hematocrit (Bld) [Volume fraction] 28.2 % Low 41.0 - 52.0 [facility] Comment on above: Performed By: #### M G #### [facility] [address] [place] [id number] Hemoglobin (Bld) [Mass/Vol] 10.1 g/dL Low 13.5 - 17.5 [facility] Comment on above: Performed By: #### M G #### [facility] [address] [place] [id number] MCHC (RBC) [Mass/Vol] 35.8 g/dL Normal 32.0 - 36.0 [facility] Comment on above: Performed By: #### M G #### [facility] [address] [place] [id number] MCV (RBC) [Entitic vol] 99 fL Normal 80 - 100 [facility] Comment on above: Performed By: #### M G #### [facility] [address] [place] [id number] Platelets (Bld) [#/Vol] 125 10*3/uL Low 150 - 450 [facility] Comment on above: Performed By: #### M G #### [facility] [address] [place] [id number] RBC 2.86 x10E12/L Low 4.50 - 5.90 [facility] Comment on above: Performed By: #### M G #### [facility] [address] [place] [id number] WBC (Bld) [#/Vol] 7.5 10*3/uL Normal 4.4 - 11.3 [facility] Comment on above: Performed By: #### M G #### [facility] [address] [place] [id number] COMPREHENSIVE PANELon 2022 Albumin [Mass/Vol] 3.2 g/dL Low 3.4 - 5.0 [facility] Comment on above: Performed By: #### M G #### [facility] [address] [place] [address] ALP [Catalytic activity/Vol] 162 U/L High 33 - 136 [facility] Comment on above: Performed By: #### M G #### [facility] [address] [place] [address] ALT [Catalytic activity/Vol] 49 U/L Normal 10 - 52 [facility] Comment on above: Result Comment: Raysa ents treated with Sulfasalazine may generate falsely decreased results for ALT. Performed By: #### M G #### [facility] [address] [place] [address] Anion gap [Moles/Vol] 11 mmol/L Normal 10 - 20 [facility] Comment on above: Performed By: #### M G #### [facility] [address] [place] [address] AST [Catalytic activity/Vol] 144 U/L High 9 - 39 [facility] Comment on above: Performed By: #### M G #### [facility] [address] [place] [address] Bilirubin [Mass/Vol] 2.9 mg/dL High 0.0 - 1.2 [facility] Comment on above: Performed By: #### M G #### [facility] [address] [place] [address] Calcium [Mass/Vol] 7.5 mg/dL Low 8.6 - 10.3 [facility] Comment on above: Performed By: #### M G #### [facility] [address] [place] [address] Chloride [Moles/Vol] 81 mmol/L Low 98 - 107 [facility] Comment on above: Performed By: #### M G #### [facility] [address] [place] [address] Creatinine [Mass/Vol] 0.39 mg/dL Low 0.50 - 1.30 [facility] Comment on above: Performed By: #### M G #### [facility] [address] [place] [address] eGFR MALE >90 Normal >90 [facility] Comment on above: Result Comment: CALC ULATIONS OF ESTIMATED GFR ARE PERFORMED USING THE 2020 CKD-EPI STUDY REFIT EQUATION WITHOUT THE RACE VARIABLE FOR THE IDMS-TRACEABLE CREATININE METHODS. https://jasn.asnjournals.org/content//ASN.8930739 988 Performed By: #### M G #### [facility] [address] [place] [address] Glucose [Mass/Vol] 105 mg/dL High 74 - 99 [facility] Comment on above: Performed By: #### M G #### [facility] [address] [place] [address] HCO3 (Bld) [Moles/Vol] 32 mmol/L Normal 21 - 32 [facility] Comment on above: Performed By: #### M G #### [facility] [address] [place] [address] Potassium [Moles/Vol] 3.2 mmol/L Low 3.5 - 5.3 [facility] Comment on above: Performed By: #### M G #### [facility] [address] [place] [address] Protein [Mass/Vol] 5.5 g/dL Low 6.4 - 8.2 [facility] Comment on above: Performed By: #### M G #### [facility] [address] [place] [address] Sodium [Moles/Vol] 121 mmol/L Low 136 - 145 [facility] Comment on above: Performed By: #### M G #### [facility] [address] [place] [address] Urea nitrogen [Mass/Vol] 7 mg/dL Normal 6 - 23 [facility] Comment on above: Performed By: #### M G #### [facility] [address] [place] [address] Daily Progress Note-Gastroen terologyon 08-31-2022 Daily Progress Note-Gastroenterolog y Consult Type: subsequent visit/care Service: Gastroenterology Subjective Data: CHRISTOS LYONS is a 77 year old Male who is Hospital Day # 4. sodium is 121. c/o pain from arthritis. Overnight Events: Patient had an uneventful night. Objective Data: Objective Information: T PRBPMAPSpO2 Value36.39684502/5896% Date/Time08/31 8: 8: 8: 8: 8:38 Range(36.3C [...] Lipid Panel, (more content not included)... Normal [facility] Daily Progress Note-Medicine on 08-31-2022 Daily Progress Note-Medicine Service: Medicine Subjective Data: CHRISTOS LYONS is a 77 year old Male who is Hospital Day # 4. Getting more pain in his legs. Abd distension going down. Still with loose stools. Objective Data: Objective Information: T PRBPMAPSpO2 Value36.76405905/5896% Date/Time08/31 8: 8: 8: 8: 8:38 Range(36.3C [...] Recent Lab Results: Results: CBC: 08/31/2022 06:09 \\ Hgb / \\ 10.1 L / WBC Plt 7.5 125 L / Hct \\ / 28.2 L \\ RBC: 2.86 L MCV: 99 CMP: 08/31/2022 06:09 NA+ Cl- BUN / 121 L 81 L 7 / ------ Glucose - 105 H K+ HCO3- Creat \\ 3.2 L 32 0.39 L \\ \\ T Bili / \\ 2.9 H / AST x ---- x ALT 144 Hx ---- x 49 / Alk P \\ / 162 H \\ Calcium : 7.5 L Anion Gap : [...] Updated: 31-Aug-2022 13:38 by Miles Ahn) Normal [facility] Daily Progress Note-Nephrolo adamon 08-31-2022 Daily Progress Note-Nephrology Service: Nephrology Subjective Data: CHRISTOS LYONS is a 77 year old Male who is Hospital Day # 4. Seen and examined. No acute events, he does not offer new complaints. Chart/labs/meds/notes/imag ing/VS reviewed. Objective Data: Objective Information: T PRBPMAPSpO2 Value36.69701474/5896% Date/Time08/31 8: 8: 8: 8: 8:38 Range(36.3C - 36.8C ) (64 - 69 ) (18 - 18 ) (101 - 119 )/ (54 - 72 ) (93% - 96% ) Pain reported at 08/31 15:07: 0 = None ---- Intake and Output ----- Mn/Dy/Year TimeIntakeOutputNet Aug 30, 2022 10:00 [id number] The Intake and Output Totals for the last 24 hours are: IntakeOutputNet [id number] Physical Exam by System: Constitutional: Well developed, [...] Recent Lab Results: Results: CBC: 08/31/2022 06:09 \\ Hgb / \\ 10.1 L / WBC Plt 7.5 125 L / Hct \\ / 28.2 L \\ RBC: 2.86 L MCV: 99 CMP: 08/31/2022 06:09 NA+ Cl- BUN / 121 L 81 L 7 / ------ Glucose - 105 H K+ HCO3- Creat \\ 3.2 L 32 0.39 L \\ \\ T Bili / \\ 2.9 H / AST x ---- x ALT 144 Hx ---- x 49 / Alk P \\ / 162 H \\ Calcium : 7.5 L Anion Gap : [...] suggesting ref (more content not included)... Normal [facility] Daily Progress Note-Pulmonol asia 08-31-2022 Daily Progress Note-Pulmonology Service: Pulmonology Subjective Data: CHRISTOS LYONS is a 77 year old Male who is Hospital Day # 4. S: Feels "okay". Denies shortness of breath or cough but does admit to pain involving his right knee and right ankle. On room air with an oxygen saturation of 93%. EGD was canceled due to hyponatremia. Objective Data: Objective Information: T PRBPMAPSpO2 Value36.40202626/5896% Date/Time08/31 8: 8: 8: 8: 8:38 Range(36.3C - 36.8C ) (64 - 69 ) (18 - 18 ) (101 - 119 )/ (54 - 72 ) (93% - 96% ) Pain reported at 08/30 22:12: 0 = None Physical exam: General-awake, alert and in no acute distress. Lungs-clear, without wheezes, rales or rhonchi. Heart-regular rate and rhythm. Abdomen-positive bowel sounds. Ywjoehqusxw-3-7+ lower extremity edema. Skin-venous stasis changes of [...] Last Updated: 31-Aug-2022 10:30 by Khang Wagner) Normal [facility] EMR ADDONon 08-31-2022 ADDON CONFIRMATION REQUEST REC'D Normal [facility] Comment on above: Performed By: #### M G #### [facility] [address] [place] [address] Echocardiogramon 08-31-2022 Echocardiography [facility] , [address] [place] [address] and TRANSTHORACIC ECHOCARDIOGRAM REPORT Patient Name: CHRISTOS Diana GWENDOLYN Reading Physician: [id number] Giovanny Blood DO Study Date: 08/31/2022 Referring Physician: MILES AHN MRN/PID: [id number] PCP: Accession/Order#: [id number] Department Location: Date of : 1945 Fellow: Gender: M Nurse: Admit Date: 08/28/2022 Feeder Loader: Hunter Navarro [facility] Admission Status: Inpatient - Routine Additional Staff: Height: 178.00 cm CC Report to: Weight: 70.00 kg Study Type: Echocardiogram BSA: 1.87 m2 Blood Pressure: 115 /58 mmHg Diagnosis/ICD: R60.0-Localized edema Indication: Edema Procedure/CPT: Echo Complete w Full Doppler-[id number] Patient History: Pertinent History: HLD, EtOH, HTN. [...] LA Area A2C: 16.6 cm2 LA Major Hallie A4C: 5.1 cm LA Major Hallie A2C: 5.0 cm LA Vol A4C: 42.8 [...] cm/s AORTA: Asc Ao Diam 4.72 cm [id number] Giovanny Jeremi Electronically signed on 08/31/2022 at 5:12:06 PM Final Normal [facility] FOLATE, SERUMon 08-31-2022 Folate [Mass/Vol] 5.6 ng/mL Normal >5.0 [facility] Comment on above: Result Comment: Low <3.4 Borderline 3.4-5.0 Normal >5.0 . Biotin interference may cause falsely elevated results. Patients taking a Biotin dose of up to 5 mg/day should refrain from taking Biotin for 24 hours before sample collection. Providers may contact their local laboratory for further information. Performed By: #### M G #### [facility] [address] [place] [address] Folate, Serumon 08-31-2022 Folate [Mass/Vol] 5.6 ng/mL >5.[address] [facility] Work Phone: Comment on above: Low <3.4Borderline [...] g/dL below low threshold 3.4 - 5.[address] [facility] Work Phone: ALP [Catalytic activity/Vol] 162 U/L above high threshold 33 - [address] [facility] Work Phone: ALT With P-5'-P [Catalytic activity/Vol] 49 U/L 10 - [address] [facility] Work Phone: Comment on above: Patients treated wit h Sulfasalazine may generate falsely decreased results for ALT. Anion gap [Moles/Vol] 11 mmol/L 10 - 20 [facility] [employer] Work Phone: AST With P-5'-P [Catalytic activity/Vol] 144 U/L above high threshold 9 - [address] [facility] Work Phone: Bilirubin [Mass/Vol] 2.9 mg/dL above high threshold 0.0 - 1.[address] [facility] Work Phone: Calcium [Mass/Vol] 7.5 mg/dL below low threshold 8.6 - 10.[address] [facility] Work Phone: Chloride [Moles/Vol] 81 mmol/L below low threshold 98 - [address] [facility] Work Phone: CO2 [Moles/Vol] 32 mmol/L 21 - [address] [facility] Work Phone: Creatinine [Mass/Vol] 0.39 mg/dL below low threshold See Below [facility] Work Phone: Comment on above: Reference Range: 0.5 0 - 1.30 Glucose [Mass/Vol] 105 mg/dL above high threshold 74 - 99 [facility] [employer] Work Phone: Potassium [Moles/Vol] 3.2 mmol/L below low threshold 3.5 - 5.3 [facility] [employer] Work Phone: Protein [Mass/Vol] 5.5 g/dL below low threshold 6.4 - 8.2 [facility] [employer] Work Phone: Sodium [Moles/Vol] 121 mmol/L below low threshold 136 - 145 [facility] [employer] Work Phone: Urea nitrogen [Mass/Vol] 7 mg/dL 6 - 23 [facility] Work Phone: Laboratory - Hematology and Cell countson 08-31-2022 Erythrocyte distribution width (RBC) [Ratio] 14.3 % See Below [facility] Work Phone: Comment on above: Reference Range: 11. 5 - 14.5 Hematocrit (Bld) [Volume fraction] 28.2 % below low threshold See Below [facility] Work Phone: Comment on above: Reference Range: 41. 0 - 52.0 Hemoglobin (Bld) [Mass/Vol] 10.1 g/dL below low threshold See Below [facility] Work Phone: Comment on above: Reference Range: 13. 5 - 17.5 MCHC (RBC) [Mass/Vol] 35.8 g/dL See Below [facility] Work Phone: Comment on above: Reference Range: 32. 0 - 36.0 MCV (RBC) [Entitic vol] 99 fL 80 - 100 [facility] Work Phone: Platelets (Bld) [#/Vol] 125 10*3/uL below low threshold 150 - [address] [facility] Work Phone: RBC (Bld) [#/Vol] 2.86 {x10E12/L} below low threshold See Below [facility] Work Phone: Comment on above: Reference Range: 4.5 0 - 5.90 WBC (Bld) [#/Vol] 7.5 10*3/uL 4.4 - 11.3 -[facility] Work Phone: No Panel Informationon 08-31 >90 >90 -[facility] Work Phone: Comment on above: CALCULATIONS OF ROSANA MATED GFR ARE PERFORMED USING THE 2020 CKD-EPI STUDY REFIT EQUATION WITHOUT THE RACE VARIABLE FOR THE IDMS-TRACEABLE CREATININE METHODS.https://jasn.asnjournals.org/content/early/ASN .6525216103 Nutrition Therapy-Assessment on 08-31-2022 Nutrition Therapy-Assessment Assessment Subjective/Objective: Note Type: Assessment Note Authored by: Registered Dietitian Order Processor Nutrition Note: The patient is a 77 year old Male visit reason: failure to thrive. Nutrition Consult: MST Per H&P: CHRISTOS LYONS is a 77 year old Male with a past medical history of hypertension, hyperlipidemia, anemia, alcohol use disorder, BPH, anxiety, hypothyroidism, gouty arthritis who presented to [facility] complaining of worsening dysphagia to [...] laboratory results: Complete Blood Count Trending View [id number] 06:09:00 30-Aug-2022 06:27:00 White Blood Cell Count7.5 7.0 Red Blood Cell Count2.86 L 2.93 L HGB10.1 L 10.2 L HCT28.2 L 28.4 L MCV99 97 MCHC35.8 35.9 BQB701 L 118 L RDW-CV14.3 13.9 Comprehensive Metabolic [...] 240 All ranges are based on fasting [facility] HDL Cholesterol, Serum 62.4 . AGE VERY [...] 240 All ranges are based on [facility] HDL Cholesterol, Serum 62.4 . AGE VERY [...] 1.70 N (more content not included)... Normal [facility] PHOSPHORUSon 04--2023 Phosphate [Mass/Vol] 1.9 mg/dL Low 2.5 - 4.9 [facility] Comment on above: Result Comment: The performance characteristics of phosphorus testing in heparinized plasma have been validated by the individual laboratory site where testing is performed. Testing on heparinized plasma is not approved by the FDA; however, such approval is not necessary. Performed By: #### P HOS ####[facility] [id number] [place] [address] Phosphorus, Serumon 09-01-19 Phosphate [Mass/Vol] 1.9 mg/dL below low threshold 2.5 - 4.[address] [facility] Work Phone: Comment on above: The performance fransisca acteristics of phosphorus testing in heparinized plasma have been validated by the individual laboratory site where testing is performed. Testing on heparinized plasma is not approved by the FDA; however, such approval is not necessary. STOOL PATHOGEN PCR PANELon 0 08-31-2022 Campylobacter sp DNA.diarrheagenic NEVIN+probe Ql (Stl) Not detected See Below [facility] Work Phone: Comment on above: Reference Range: NOT DETECTED E. coli stx1 gene NEVIN+probe Ql (Unsp spec) Not detected See Below [facility] Work Phone: Comment on above: Reference Range: NOT DETECTED E. coli stx2 gene NEVIN+probe Ql (Unsp spec) Not detected See Below [facility] Work Phone: Comment on above: Reference Range: NOT DETECTED Norovirus genogroup I and II RNA NEVIN+probe Nom (Stl) Not detected See Below [facility] Work Phone: Comment on above: Reference Range: NOT DETECTED Rotavirus RNA NEVIN+probe Nom (Stl) Not detected See Below [facility] Work Phone: Comment on above: Reference [...] available for Salmonella and Shigella infections-request test "Stool PCR Follow-Up (STLPF)". Monitoring tests are not available at this time for other enteric agents in this panel. Shigella sp DNA NEVIN+probe Ql (Unsp spec) Not detected See Below [facility] Work Phone: Comment on above: Reference Range: NOT DETECTED Vibrio sp DNA NEVIN+probe Nom (Unsp spec) Not detected See Below [facility] Work Phone: Comment on above: Reference Range: NOT DETECTED Yersinia sp DNA NEVIN+probe Nom (Unsp spec) Not detected See Below [facility] Work Phone: Comment on above: SOURCE: Reference Ra nge: NOT DETECTED STOOL PATHOGEN PCR PANEL Not detected See Below [facility] Work Phone: Comment on above: Reference Range: NOT DETECTED VITAMIN B12on 08-31-2022 Cobalamin (Vitamin B12) [Mass/Vol] 556 pg/mL Normal 211 - 911 [facility] Comment on above: Performed By: #### V TB12 #### [facility] [address] [place] [address] Vitamin B12, Serumon 023 Cobalamin (Vitamin B12) [Mass/Vol] 556 pg/mL 211 - [address] [facility] Work Phone: BASIC METABOLIC PANELon 08-08 Anion gap [Moles/Vol] 11 mmol/L Normal 10 - 20 [facility] Comment on above: Order Comment: NEREIDA CORDERO RB TO IVYChelsea MOHAN, 08/30/2022 08:10 Performed By: #### G ZOHREH #### [facility] [address] [place] [address] Calcium [Mass/Vol] 7.7 mg/dL Low 8.6 - 10.3 [facility] Comment on above: Order Comment: SOD C ALLED RB TO IVY SAMPRAM, 08/30/2022 08:10 Performed By: #### G ZOHREH #### [facility] [address] [place] [address] Chloride [Moles/Vol] 80 mmol/L Low 98 - 107 [facility] Comment on above: Order Comment: SOD C ALLED RB TO IVY SAMPRAM, 08/30/2022 08:10 Performed By: #### G ZOHREH #### [facility] [address] [place] [address] Creatinine [Mass/Vol] 0.47 mg/dL Low 0.50 - 1.30 [facility] Comment on above: Order Comment: SOD C ALLED RB TO IVY SAMPRAM, 08/30/2022 08:10 Performed By: #### G ZOHREH #### [facility] [address] [place] [address] eGFR MALE >90 Normal >90 [facility] Comment on above: Order Comment: SOD C ALLED RB TO IVY SAMPRAM, 08/30/2022 08:10 Result Comment: CALC ULATIONS OF ESTIMATED GFR ARE PERFORMED USING THE 2020 CKD-EPI STUDY REFIT EQUATION WITHOUT THE RACE VARIABLE FOR THE IDMS-TRACEABLE CREATININE METHODS. https://jasn.asnjournals.org/content/early/ASN.6805264 988 Performed By: #### G ZOHREH #### [facility] [address] [place] [address] Glucose [Mass/Vol] 109 mg/dL High 74 - 99 [facility] Comment on above: Order Comment: SOD C ALLED RB TO IVY SAMPRAM, 08/30/2022 08:10 Performed By: #### G ZOHREH #### [facility] [address] [place] [address] HCO3 (Bld) [Moles/Vol] 31 mmol/L Normal 21 - 32 [facility] Comment on above: Order Comment: SOD C ALLED RB TO IVY SAMPRAM, 08/30/2022 08:10 Performed By: #### G ZOHREH #### [facility] [address] [place] [address] Potassium [Moles/Vol] 3.2 mmol/L Low 3.5 - 5.3 [facility] Comment on above: Order Comment: SOD C ALLED RB TO IVY RIGOBERTOPRAM, 08/30/2022 08:10 Performed By: #### G ZOHREH #### [facility] [address] [place] [id number] Sodium [Moles/Vol] 119 mmol/L Critically low 136 - 145 [facility] Comment on above: Order Comment: SOD C ALLED RB TO IVY RIGOBERTOPRAM, 08/30/2022 08:10 Result Comment: SOD CALLED RB TO IVY SAMPRAM, 08/30/2022 08:10 Performed By: #### G ZOHREH #### [facility] [address] [place] [id number] Urea nitrogen [Mass/Vol] 9 mg/dL Normal 6 - [facility] Comment on above: Order Comment: SOD C ALLED RB TO IVY FRANKLINPRAM, 08/30/2022 08:10 Performed By: #### G ZOHREH #### [facility] [address] [place] [address] C Reactive Protein, Serumon 08-30-2022 CRP [Mass/Vol] 12.67 mg/dL Abnormal [facility] Work Phone: Comment on above: REF VALUE< 1.00 C-REACTIVE PROTEINon 023 C-REACTIVE PROTEIN 12.67 mg/dL Abnormal [facility] Comment on above: Result Comment: REF VALUE < 1.00 Performed By: #### C RP ####[facility] [id number] [place] [id number] CBCon 08-30-2022 Platelets (Bld) [#/Vol] 118 10*3/uL Low 150 - 450 [facility] Comment on above: Result Comment: Plat elet count may be higher than reported due to presence of Platelet Clumps. Performed By: #### R ENAL #### [facility] [address] [place] [address] Erythrocyte distribution width (RBC) [Ratio] 13.9 % Normal 11.5 - 14.5 [facility] Comment on above: Performed By: #### R ENAL #### [facility] [address] [place] [address] Hematocrit (Bld) [Volume fraction] 28.4 % Low 41.0 - 52.0 [facility] Comment on above: Performed By: #### R ENAL #### [facility] [address] [place] [address] Hemoglobin (Bld) [Mass/Vol] 10.2 g/dL Low 13.5 - 17.5 [facility] Comment on above: Performed By: #### R ENAL #### [facility] [address] [place] [address] MCHC (RBC) [Mass/Vol] 35.9 g/dL Normal 32.0 - 36.0 [facility] Comment on above: Performed By: #### R ENAL #### [facility] [address] [place] [address] MCV (RBC) [Entitic vol] 97 fL Normal 80 - 100 [facility] Comment on above: Performed By: #### R ENAL #### [facility] [address] [place] [address] RBC 2.93 x10E12/L Low 4.50 - 5.90 [facility] Comment on above: Performed By: #### R ENAL #### [facility] [address] [place] [address] WBC (Bld) [#/Vol] 7.0 10*3/uL Normal 4.4 - 11.3 [facility] Comment on above: Performed By: #### R ENAL #### [facility] [address] [place] [address] CT LOWER EXT WO CONTRASTon 0 08-30-2022 CT LOWER EXT WO CONTRAST Patient Name: CHRISTOS LYONS STUDY: CT LOWER EXT WO CONTRAST; Right; 08/30/2022 7:32 pm INDICATION: right knee pain . COMPARISON: Radiographs of the same day ACCESSION NUMBER(S): [id number] ORDERING CLINICIAN: MILES AHN TECHNIQUE: Noncontrast images [...] Electronically signed by: KHLOE LYLES MD Normal [facility] CT Low Extremity without Con traston 08-30-2022 CT Lower extremity WO contrast Normal [facility] Work Phone: Daily Progress Note-Gastroen terologyon 08-30-2022 Daily Progress Note-Gastroenterolog y Service: Gastroenterology Subjective Data: CHRISTOS LYONS is a 77 year old Male who is Hospital Day # 3. Patient has ongoing dysphagia. Tolerating liquids/apple sauce. Objective Data: Objective Information: T PRBPMAPSpO2 Value36.49131040/7195% Date/Time08/30 11: 11: 11: 11: 11:58 Range(36.2C [...] Recent Lab Results: Results: CBC: 08/30/2022 06:27 \\ Hgb / \\ 10.2 L / WBC Plt 7.0 118 L / Hct \\ / 28.4 L \\ RBC: 2.93 L MCV: 97 BMP: 08/30/2022 06:27 NA+ Cl- BUN / 119 LL 80 L 9 / ------ Glucose - 109 H K+ HCO3- Creat \\ 3.2 L 31 0.47 L \\ Calcium : 7.7 L Anion Gap : [...] extending about (more content not included)... Normal [facility] Daily Progress Note-Medicine on 08-30-2022 Daily Progress Note-Medicine Service: Medicine Subjective Data: CHRITSOS LYONS is a 77 year old Male who is Hospital Day # 3. Brother says he seems more sleepy today. He is having some looser stools. Objective Data: Objective Information: T PRBPMAPSpO2 Value36.27712579/7195% Date/Time08/30 11: 11: 11: 11: 11:58 Range(36.2C [...] Recent Lab Results: Results: CBC: 08/30/2022 06:27 \\ Hgb / \\ 10.2 L / WBC Plt 7.0 118 L / Hct \\ / 28.4 L \\ RBC: 2.93 L MCV: 97 BMP: 08/30/2022 06:27 NA+ Cl- BUN / 119 LL 80 L 9 / ------ Glucose - 109 H K+ HCO3- Creat \\ 3.2 L 31 0.47 L \\ Calcium : 7.7 L Anion Gap : [...] Updated: 30-Aug-2022 12:32 by Miles Ahn) Normal [facility] Daily Progress Note-Nephrolo gyon 08-30-2022 Daily Progress Note-Nephrology Service: Nephrology Subjective Data: CHRISTOS LYONS is a 77 year old Male who is Hospital Day # 3. Seen and examined. Sitting upright in bed. No acute events, he does not offer new complaints. Chart/labs/meds/notes/imag ing/VS reviewed. Objective Data: Objective Information: T PRBPMAPSpO2 Value36.68875942/7195% Date/Time08/30 11:5808/30 11: 11: 11: 11:58 Range(36.2C - 37.1C [...] Recent Lab Results: Results: CBC: 08/30/2022 06:27 \\ Hgb / \\ 10.2 L / WBC Plt 7.0 118 L / Hct \\ / 28.4 L \\ RBC: 2.93 L MCV: 97 BMP: 08/30/2022 06:27 NA+ Cl- BUN / 119 LL 80 L 9 / ------ Glucose - 109 H K+ HCO3- Creat \\ 3.2 L 31 0.47 L \\ Calcium : 7.7 L Anion Gap : [...] PE detection. (more content not included)... Normal [facility] Daily Progress Note-Pulmonol [place] 08-30-2022 Daily Progress Note-Pulmonology Service: Pulmonology Subjective Data: CHRISTOS LYONS is a 77 year old Male who is Hospital Day # 3. S: Denies shortness of breath, pain or cough. On room air. EGD for today has been canceled. Objective Data: Objective Information: T PRBPMAPSpO2 Value36.38834241/7196% Date/Time08/30 8: 8: 8: 8: 8:01 Range(36.2C [...] ResultValue Lab Comment: SOD CALLED RB TO IVYChelsea MOHAN, 08/30/2022 08:10 Glucose, Serum 109 H [...] Last Updated: 30-Aug-2022 11:16 by Khang Wagner) Normal [facility] Discharge [id number] Discharge Profile2 Discharge Orders: Anticipated Discharge Date: Anticipated Discharge [id number] Anticipated Discharge Time09:08 DNAR: Code Status at Discharge: DNAR Was Extending the DNAR Status Following Discharge Discussed w/ Patient/Family: n/a- patient already has a completed DNR State Form [place] DNR State Form Status: DNR Comfort Care Arrest Activity: activity as tolerated. May shower. Diet: Dietlow sodium Fluid Restriction1.5L Labs 1: Lab Test(s)CBC, Comprehensive Metabolic Panel Date To Be Drawn09/06/2022 Fax Results Satya Maynard, #[phone] Gold Form Orders: Care Recommendation: I recommend that INPATIENT care is required at:Skilled Provider CertificationATTENDING: I certify that inpatient care is required at the level recommended above. To the best of my knowledge, all information provided about the individual is a true and accurate reflection of the individual's condition. Attending ProviderCaesar Sal Attending Provider [id number] Therapy Orders: Occupational Therapy OrdersEval and Treat ([facility]) Physical Therapy OrdersEval and Treat ([facility]) Provider Follow Up: Physician To Follow at Skilled/RehabAttending Physician at Skilled/Rehab Provider FINAL REVIEW of Orders: Final Review: Final Review of Medication Reconciliation and Orders Completedby Physician Reviewing ProviderCaesar Sal MD at 04-Sep-2022 09:12:18 Appointments: Follow-Up Appointment 01: Physician/Dept/Service. Malou Bowen - Pulmonary Scheduled Date/Szjo60-Ark-0165 08:[address] [address] Phone [phone] CommentsPlease wear a mask when entering the building. Please arrive 10-15 minutes early, bring photo ID, current list of medications & dosages, insurance cards and any copay that may apply. If unable to keep this appointment, please call to cancel at least 24 hrs prior to appointment. Follow-Up Appointment 02: Physician/Dept/Service. Rosa Maria Zavalax; PCP, Dr Maynard CommentsOrder received after discharge Follow-Up Appointment 03: Physician/Dept/Service. Cy Maynard, Nephrology CommentsOrder received after discharge Gold Form - Nursing Summary: Special Treatments/Procedures (in past 14 days): Chemotherapyno Dialysisno IV Medicationno Oxygen Therapyno Transfusionsno Feverno Radiationno Ventilatorno Tracheostomyno Suctioningno Nutrition: Nutritional Statusfeeds self Sensory/Comfort: Visionadequate Hearingadequate Speechclear Painno Elimination: Bladderincontinent Bowelincontinent Last Bowel [id number] Safety: Siderailsyes Restraintsno Sitterno Medication/Hygiene/Mobilit y: Medication Administrationassist Bathingassist Dressingassist Bed Mobilityassist Wheelchairassist Transfersassist Ambulationassist Electronic Signatures: Taj Vasquez (PT ACC REP) (Signed 30-Aug-2022 16:14) Authored: Discharge Orders, Appointments, Gold Form - [employer] Summary Ros Rowe (PT SVS REP) (Signed 07-Sep-2022 09:19) Authored: Discharge Orders, Appointments Caesar Sal) (Signed 04-Sep-2022 09:12) Authored: Discharge Orders, Gold Form Orders, Provider FINAL REVIEW of Orders, Appointments Alysa Douglas (REGULO) (Signed 04-Sep-2022 10:55) Authored: Discharge Orders, Gold Form - Nursing Summary Last Updated: 07-Sep-2022 09:19 by Ros Rowe (PT SVS REP) Normal [facility] HEMOGLOBIN A1Con 08-30-2022 Glucose [Mass/Vol] 134 mg/dL Normal [facility] Comment on above: Performed By: #### V TB12 #### [facility] [address] [place] [address] HbA1c (Bld) [Mass fraction] 6.3 % Abnormal [facility] Comment on above: Result Comment: Diag nosis of Diabetes-Adults Non-Diabetic: < or = 5.6% Increased risk for developing diabetes: 5.7-6.4% Diagnostic of diabetes: > or = 6.5% . Monitoring of Diabetes Age (y) Therapeutic Goal (%) Adults: >18 <7.0 Pediatrics: 13-18 <7.5 7-12 <8.0 0- 6 7.5-8.5 [place] Of [place] [employer]. Diabetes Care 33(S1), May 2009. Performed By: #### V TB12 #### [facility] [address] [place] [address] HEPATIC FUNCTION PANELon Albumin [Mass/Vol] 3.3 g/dL Low 3.4 - 5.0 [facility] Comment on above: Performed By: #### V TB12 #### [facility] [address] [place] [address] ALP [Catalytic activity/Vol] 164 U/L High 33 - 136 [facility] Comment on above: Performed By: #### V TB12 #### [facility] [address] [place] [address] ALT [Catalytic activity/Vol] 47 U/L Normal 10 - 52 [facility] Comment on above: Result Comment: Raysa ents treated with Sulfasalazine may generate falsely decreased results for ALT. Performed By: #### V TB12 #### [facility] [address] [place] [address] AST [Catalytic activity/Vol] 144 U/L High 9 - 39 [facility] Comment on above: Performed By: #### V TB12 #### [facility] [address] [place] [address] Bilirubin [Mass/Vol] 3.5 mg/dL High 0.0 - 1.2 [facility] Comment on above: Performed By: #### V TB12 #### [facility] [place] [address] Bilirubin.indirect [Mass/Vol] 2.0 mg/dL High 0.0 - 0.3 [facility] Comment on above: Performed By: #### V TB12 #### [facility] [place] [address] Protein [Mass/Vol] 5.8 g/dL Low 6.4 - 8.2 [facility] Comment on above: Performed By: #### V TB12 #### [facility] [place] [address] HEPATITIS PANEL,ACUTE (HCFA) on 08-30-2022 HEPATITIS A AB-IGM Non-Reactive Normal NONREACTIVE [facility] Comment on above: Result Comment: Biot in interference may cause falsely decreased results. Patients taking a Biotin dose of up to 5 mg/day should refrain from taking Biotin for 24 hours before sample collection. Providers may contact their local laboratory for further information. Performed By: #### M G #### [facility] [address] [place] [address] HEPATITIS B CORE AB,IGM Non-Reactive Normal NONREACTIVE [facility] Comment on above: Result Comment: Resu lts from patients taking biotin supplements or receiving high-dose biotin therapy should be interpreted with caution due to possible interference with this test. Providers may contact their local laboratory for further information. Performed By: #### M G #### [facility] [address] [place] [id number] HEPATITIS C AB Non-Reactive Normal NONREACTIVE [facility] Comment on above: Result Comment: Resu lts from patients taking biotin supplements or receiving high-dose biotin therapy should be interpreted with caution due to possible interference with this test. Providers may contact their local laboratory for further information. Performed By: #### M G #### [facility] [address] [place] [id number] HEP.B SURFACE AG Non-Reactive Normal NONREACTIVE [facility] Comment on above: Result Comment: Biot in interference may cause falsely decreased results. Patients taking a Biotin dose of up to 5 mg/day should refrain from taking Biotin for 24 hours before sample collection. Providers may contact their local laboratory for further information. Performed By: #### M G #### [facility] [address] [place] [address] Lab Specimen Source Normal [facility] Comment on above: Performed By: #### M G #### [facility] [address] [place] [address] Hemoglobin A1Con 08-30-2022 Glucose [Mass/Vol] 134 mg/dL -[employer] [facility] Work Phone: HbA1c (Bld) [Mass fraction] 6.3 % Abnormal -[employer] [facility] Work Phone: Comment on above: Diagnosis of Diabete s-Adults Non-Diabetic: < or = 5.6% Increased risk for developing diabetes: 5.7-6.4% Diagnostic of diabetes: > or = 6.5%. Monitoring of Diabetes Age (y) Therapeutic Goal (%) Adults: >18 <7.0 Pediatrics: 13-18 <7.5 7-12 <8.0 0- 6 7.5-8.5 [place] Diabetes Association. Diabetes Care 33(S1), May 2009. Hepatic Function Panelon Albumin BCP dye [Mass/Vol] 3.3 g/dL below low threshold 3.4 - 5.[address] [facility] Work Phone: ALP [Catalytic activity/Vol] 164 U/L above high threshold 33 - [address] [facility] Work Phone: ALT With P-5'-P [Catalytic activity/Vol] 47 U/L 10 - 52 [facility] Work Phone: Comment on above: Patients treated wit h Sulfasalazine may generate falsely decreased results for ALT. AST With P-5'-P [Catalytic activity/Vol] 144 U/L above high threshold 9 - 39 [facility] Work Phone: Bilirubin [Mass/Vol] 3.5 mg/dL above high threshold 0.0 - 1.2 [facility] Work Phone: Bilirubin.direct [Mass/Vol] 2.0 mg/dL above high threshold 0.0 - 0.[address] [facility] Work Phone: Protein [Mass/Vol] 5.8 g/dL below low threshold 6.4 - 8.[address] [facility] Work Phone: Hepatitis Panel, Acute (HCFA )on 08-30-2022 HAV IgM IA Ql Non-Reactive See Below [facility] Work Phone: Comment on above: SOURCE: Reference Ra nge: NONREACTIVE Biotin interference may cause falsely decreased results. Patients taking a Biotin dose of up to 5 mg/day should refrain from taking Biotin for 24 hours before sample collection. Providers may contact their local laboratory for further information. Hepatitis Panel, Acute (HCFA) Non-Reactive See Below [facility] Work Phone: Comment on above: Reference [...] [Mass/Vol] 161 mg/dL Normal 0 - 199 [facility] Comment on above: Result Comment: . AGE [...] dosing. Performed By: #### V TB12 #### [facility] [address] [place] [address] Cholesterol in HDL [Mass/Vol] 62.4 mg/dL Normal [facility] Comment on above: Result Comment: . AGE VERY LOW LOW NORMAL HIGH 0-19 Y < 35 < 40 40-45 ---- 20-24 Y ---- < 40 >45 ---- >24 Y ---- < 40 40-60 >60 . Performed By: #### V TB12 #### [facility] [address] [place] [address] Cholesterol in LDL [Mass/Vol] 56 mg/dL Normal 0 - 99 [facility] Comment on above: Result Comment: . NEAR BORD AGE DESIRABLE OPTIMAL HIGH HIGH VERY HIGH 0-19 Y 0 - 109 --- 110-129 >/= 130 ---- 20-24 Y 0 - 119 --- 120-159 >/= 160 ---- >24 Y 0 - 99 100-129 130-159 160-189 >/=190 . Performed By: #### V TB12 #### [facility] [address] [place] [address] Cholesterol in VLDL [Mass/Vol] 43 mg/dL High 0 - 40 [facility] Comment on above: Performed By: #### V TB12 #### [facility] [address] [place] [address] Cholesterol.total/Ch olesterol in HDL [Mass ratio] 2.6 {ratio} Normal [facility] Comment on above: Result Comment: REF VALUES DESIRABLE < 3.4 HIGH RISK > 5.0 Performed By: #### V TB12 #### [facility] [address] [place] [address] NON-HDL CHOLESTEROL 99 mg/dL Normal [facility] Comment on above: Result Comment: AGE DESIRABLE BORDERLINE HIGH HIGH VERY HIGH 0-19 Y 0 - 119 120 - 144 >/= 145 >/= 160 20-24 Y 0 - 149 150 - 189 >/= 190 ---- >24 Y 30 MG/DL ABOVE LDL CHOLESTEROL GOAL . Performed By: #### V TB12 #### [facility] [place] [address] Triglyceride [Mass/Vol] 213 mg/dL High 0 - 149 [facility] Comment on above: Result Comment: . AGE [...] dosing. Performed By: #### V TB12 #### [facility] [address] [place] [address] Laboratory - Chemistry and C hemistry - challengeon 08-30-2022 Anion gap [Moles/Vol] 11 mmol/L 10 - [address] [facility] Work Phone: Calcium [Mass/Vol] 7.7 mg/dL below low threshold 8.6 - 10.[address] [facility] Work Phone: Chloride [Moles/Vol] 80 mmol/L below low threshold 98 - [address] [facility] Work Phone: CO2 [Moles/Vol] 31 mmol/L 21 - [address] [facility] Work Phone: Creatinine [Mass/Vol] 0.47 mg/dL below low threshold See Below [facility] Work Phone: Comment on above: Reference Range: 0.5 0 - 1.30 Glucose [Mass/Vol] 109 mg/dL above high threshold 74 - [address] [facility] Work Phone: Potassium [Moles/Vol] 3.2 mmol/L below low threshold 3.5 - 5.[address] [facility] Work Phone: Sodium [Moles/Vol] 119 mmol/L Critically low 136 - 145 [facility] Work Phone: Comment on above: SOD CALLED RB TO JJ MOHAN, 08/30/2022 08:10 TSH Qn 8.58 m[IU]/L above high threshold See Below [facility] Work Phone: Comment on above: Reference Range: 0.4 4 - 3.98 TSH testing is performed using different testing methodology at [facility] than at other [facility]. Direct result comparisons should only be made within the same method. Urea nitrogen [Mass/Vol] 9 mg/dL 6 - [address] [facility] Work Phone: Laboratory - Hematology and Cell countson 08-30-2022 Erythrocyte distribution width (RBC) [Ratio] 13.9 % See Below [facility] Work Phone: Comment on above: Reference Range: 11. 5 - 14.5 Hematocrit (Bld) [Volume fraction] 28.4 % below low threshold See Below [facility] Work Phone: Comment on above: Reference Range: 41. 0 - 52.0 Hemoglobin (Bld) [Mass/Vol] 10.2 g/dL below low threshold See Below [facility] Work Phone: Comment on above: Reference Range: 13. 5 - 17.5 MCHC (RBC) [Mass/Vol] 35.9 g/dL See Below [facility] Work Phone: Comment on above: Reference Range: 32. 0 - 36.0 MCV (RBC) [Entitic vol] 97 fL 80 - [address] [facility] Work Phone: Platelets (Bld) [#/Vol] 118 10*3/uL below low threshold 150 - [address] [facility] Work Phone: Comment on above: Platelet count may b e higher than reported due to presence of PlateletClumps. RBC (Bld) [#/Vol] 2.93 {x10E12/L} below low threshold See Below [facility] Work Phone: Comment on above: Reference Range: 4.5 0 - 5.90 WBC (Bld) [#/Vol] 7.0 10*3/uL 4.4 - 11.3 [facility] Work Phone: Lipid Panelon 08-30-2022 Cholesterol [Mass/Vol] 161 mg/dL 0 - [address] [facility] Work Phone: Comment on above: . AGE [...] dosing. Cholesterol in HDL [Mass/Vol] 62.4 mg/dL [facility] Work Phone: Comment on above: . AGE VERY LOW LOW N ORMAL HIGH 0-19 Y < 35 < 40 40-45 ---- 20- 24 Y ---- < 40 >45 ---- >24 Y ---- < 40 40-60 >60. Cholesterol in LDL [Mass/Vol] 56 mg/dL 0 - 99 [facility] Work Phone: Comment on above: . NEAR BORD AGE [place]ORENA RABLE OPTIMAL HIGH HIGH VERY HIGH 0-19 Y 0 - 109 --- 110-129 >/= 130 ---- 20-24 Y 0 - 119 --- 120-159 >/= 160 ---- >24 Y 0 - 99 100-129 130-159 160-189 >/=190. Cholesterol non HDL [Mass/Vol] 99 mg/dL [facility] Work Phone: Comment on above: AGE DESIRABLE BORDER LINE HIGH HIGH VERY HIGH 0-19 Y 0 - 119 120 - 144 >/= 145 >/= 160 20-24 Y 0 - 149 150 - 189 >/= 190 ---- >24 Y 30 MG/DL ABOVE LDL CHOLESTEROL GOAL. Cholesterol.total/Ch olesterol in HDL [Mass ratio] 2.6 {ratio} [facility] Work Phone: Comment on above: REF VALUESDESIRABLE < 3.4HIGH RISK > 5.0 Triglyceride [Mass/Vol] 213 mg/dL above high threshold 0 - [address] [facility] Work Phone: Comment on above: . AGE [...] mg/dL above high threshold 0 - [address] [facility] Work Phone: MAGNESIUMon 08-30-2022 Magnesium [Mass/Vol] 1.70 mg/dL Normal 1.60 - 2.40 [facility] Comment on above: Performed By: #### V TB12 #### [facility] [address] [place] [address] Magnesium, Serumon 3 Magnesium [Mass/Vol] 1.70 mg/dL See Below [facility] Work Phone: Comment on above: Reference Range: 1.6 0 - 2.40 No Panel Informationon 08-30 >90 >[address] [facility] Work Phone: Comment on above: CALCULATIONS OF ROSANA MATED GFR ARE PERFORMED USING THE 2020 CKD-EPI STUDY REFIT EQUATION WITHOUT THE RACE VARIABLE FOR THE IDMS-TRACEABLE CREATININE METHODS.https://jasn.asnjournals.org/content//ASN .6014803530 OSMOLALITY, SERUMon 08-31-19 23 OSMOLALITY, SERUM 252 mOsm/kg H2O Low 280 - 300 [facility] Comment on above: Performed By: #### R ENAL #### [facility] [address] [place] [address] OSMOLALITY,URINEon 3 OSMOLALITY,URINE 674 mOsm/kg Normal 200 - 1200 [facility] Comment on above: Performed By: #### R ENAL #### [facility] [address] [place] [address] OSMOLALITY,URINE SPOTon 08-08 OSMOLALITY,URINE SPOT Canceled Normal [facility] Comment on above: Order Comment: TEST OSMOLALITY,URINE SPOT WAS CANCELLED, 08/30/2022 05:35 DUPLICATE ORDERsee [id number]. Performed By: #### G ZOHREH #### [facility] [address] [place] [address] Osmolality, Serumon 08-31-19 23 Osmolality [Osmolality] 252 {mOsm/kg_H2O} below low threshold 280 - 300 -[facility] Work Phone: PHOSPHORUSon 08-30-2022 Phosphate [Mass/Vol] 1.2 mg/dL Low 2.5 - 4.9 [facility] Comment on above: Result Comment: The performance characteristics of phosphorus testing in heparinized plasma have been validated by the individual laboratory site where testing is performed. Testing on heparinized plasma is not approved by the FDA; however, such approval is not necessary. Performed By: #### R ENAL #### [facility] [address] [place] [address] Phosphorus, Serumon 08-31-19 23 Phosphate [Mass/Vol] 1.2 mg/dL below low threshold 2.5 - 4.9 -[facility] Work Phone: Comment on above: The performance fransisca acteristics of phosphorus testing in heparinized plasma have been validated by the individual laboratory site where testing is performed. Testing on heparinized plasma is not approved by the FDA; however, such approval is not necessary. Radiologyon 08-30-2022 XR Knee 1 or 2 Views Normal [facility] Work Phone: Rehab Mrcg-ei-zwzdcsjrxyh Rehab Aboz-ni-wgznhuqkl Rehab: Info: Disciplineoccupational therapist Mode of Treatmentco-treatment Time IN13:57 Time OUT14:15 Total Treatment [id number] Total Minutes Commentco-treatment with PT to maximize [...] lling left; rolling right; scooting/bridging Roll Left [place] (Bed Mobility)2 person assist; dependent (less than 25% patient effort) Roll Right [place] (Bed Mobility)2 person assist Scoot/Bridge [place] (Bed Mobility)dependent (less than 25% patient effort); 2 person assist Comment, Bed MobilityTotal A x2 for rolling left/right and for positioning trunk closer to HOB with use of draw sheet. VCs for positioning and UE placement to assist with bed mobility. ADL: BADL Assessment/Interventionlow er body dressing; toileting [place] Level (Lower Body Dressing)dependent (less than 25% patient effort) Comment (Lower Body Dressing)Total A for donning yoandy socks due to fatigue and decreased mobility. [place] Level (Toileting)2 person assist; dependent (less than [...] Score10 Short Term Goals: Bed Mobility: Date [id number] Bed Mobility: [place] Level Goalmaximum assist (25% patients effort) Bed Mobility: Physical Assist Level Goal1-person assist Bed Mobility: Time Frame for Goal2 wks Transfer: Established Transfer: Transfer Type Goaltoilet Transfer: [place] Level Goalmaximum assist (25% patients effort) Transfer: [...] Frame for Goal2 wks Grooming: Established Grooming: [place] Level Goalmodified independent Grooming: Physical Assist Level Goal1-person assist Grooming: Time Frame for Goal2 wks Upper Body Dressing: Established Upper Body Dressing: [place] Level Goalmoderate assist (50% patients effort) Upper Body Dressing: Physical Assist Level Goal1-person assist Upper Body Dressing: Time Frame for Goal2 wks Lower Body Dressing: Established [id number] Lower Body Dressing: [place] Level Goalmaximum assist (25% patients effort) Lower Body Dressing: Physical Assist Level Goal1-person (more content not included)... Normal [facility] Rehab Note-physical therapy nurse - Co treat with AMBER Regalado 08-30-2022 Rehab Note-physical therapy nurse - Co treat with AMBER Bertrand Rehab: Info: Disciplinephysical therapy director; Co treat with OT Jorge Armstrong to maximize pt participation. Participated in performance of tx and documentation under the direct supervision of CI, student Prudencio WINN Mode of Treatmentco-treatment; physical therapy Time IN13:55 Time OUT14:15 Total Treatment [id number] Patient in ... at end of sessionbed, [...] mobility activities; rolling right; rolling left; scooting/bridging [place] (Bed Mobility)dependent (less than 25% patient effort); 2 person assist; set up Roll Left [place] (Bed Mobility)dependent (less than 25% patient effort); 2 person assist; set up Roll Right [place] (Bed Mobility)dependent (less than 25% patient effort); 2 person assist Scoot/Bridge [place] (Bed Mobility)dependent (less than 25% patient effort); [...] Score6 Short Term Goals: Bed Mobility: Date [id number] Bed Mobility: [place] Level Goalminimum assist (75% patients effort) Bed Mobility: Time Frame for Goal2 wks Transfer: Established [id number] Transfer: Transfer Type Iwkemcx-vv-nytds/chair-to- bed; kgj-pl-phlyb/gkhlh-la-hsk Transfer: [place] Level Goalminimum assist (75% patients effort) Transfer: Assistive Device Goalrolling walker Transfer: Time Frame for Goal2 wks Gait: Established Gait: [place] Level Goalmodified independent Gait: Assistive Device Goalrolling [...] Short Term Goals, DC Recommendations Davis Goldberg (COMPLIANCE NURSE) (Signed 30-Aug-2022 16:04) Authored: Info, Mobility/Tone, Sensory, Outcomes Tools, Short Term Goals, DC Recommendations Linh Taveras (PT) (Signed 30-Aug-2022 16:37) Co-Signer: Info, Mobility/Tone, Sensory, Outcomes Tools, Short Term Goals, DC Recommendations Last Updated: 30-Aug-2022 16:37 by Linh Taveras (PT) [facility] Swallow Evaluation v2-Bedsid e Clinical Swallow, SLPon 08-30-2022 Swallow Evaluation v2-Bedside Clinical Swallow, RENOVATOR MACHINE OPERATOR Rehab: Info: Time IN10:40 Time OUT10:57 Total Treatment [id number] Patient in ... at end of sessionbed, 2 railings up Communicated with ... at end of sessionbedside nurse; physician; Neva, GI, Brother Evaluation TypeBedside Clinical Swallow, RENOVATOR MACHINE OPERATOR Patient Effortadequate Symptoms Noted During/After Treatmentweakness -fatigue; fatigue Patient Profile Reviewedyes Onset of Illness/Injury or Date of [id number] Reason for Referralswallowing consult Referring PhysicianSalomone Patient/Family/Caregiver Comments/ObservationsBroth er in room with pt not tolerating solids x5 days. General Observations of PatientAlert, 0x3 , very weak and c/o a "globus sensation" in the mid esophogeal region. Per the pt - poor swallowing with solids x 2 months Pertinent History of Current Functional [id number] y/o admit [facility] from home with c/o PO solids [...] endurance; swallowing Developmental Statusindependent, age appropriate Impression: RENOVATOR MACHINE OPERATOR Swallowing Diagnosisoral dysfunction; Pt edentulous and weak, [...] safe for the Full liquid diet and RENOVATOR MACHINE OPERATOR to follow with ongoing reassessments pending EGD results. Rehab Potential/Prognosis (Swallow Eval)good, to achieve stated therapy goals Speech Therapy RecommendationsContinue Full Liquid diet Crushed meds RENOVATOR MACHINE OPERATOR to follow for a re-evaluation post EGD results -recs if indicated. Criteria for Skilled Therapeutic Interventions Met (Swallow Eval)yes; treatment indicated RENOVATOR MACHINE OPERATOR Diet RecommendationsFull liquid diet RENOVATOR MACHINE OPERATOR Liquid Consistency RecommendationsThin 0 (Regular thin) Recommended [...] needed. Dysphag (more content not included)... Normal [facility] T4 - Free Thyroxine, Serumon 08-30-2022 Free T4 [Mass/Vol] ng/dL below low threshold See Below -[facility] Work Phone: Comment on above: Reference Range: 0.6 1 - 1.12 Thyroxine Free testing is performed using different testing methodology at [facility] than at other [facility]. Direct result comparisons should only be made [...] 08-30-2022 THYROXINE,FREE <0.25 Low 0.61 - 1.12 [facility] Comment on above: Result Comment: Thyr oxine Free testing is performed using different testing methodology at [facility] than at other [facility]. Direct result comparisons should only be made [...] draw. Performed By: #### V TB12 #### [facility] [address] [place] [address] TSH WITH REFLEX TO FREE T4 I F ABNORMALon 08-30-2022 TSH Qn 8.58 m[IU]/L High 0.44 - 3.98 [facility] Comment on above: Result Comment: TSH testing is performed using different testing methodology at [facility] than at other [facility]. Direct result comparisons should only be made within the same method. Performed By: #### V TB12 #### [facility] [address] [place] [address] ALCOHOLon 08-29-2022 Ethanol [Mass/Vol] mg/dL Normal [facility] Comment on above: Result Comment: FOR MEDICAL USE ONLY. . REF VALUES <10 Performed By: #### M G #### [facility] [address] [place] [address] AMMONIAon 08-29-2022 Ammonia (P) [Moles/Vol] 44 umol/L Normal [facility] Comment on above: Result Comment: . REFERENCE VALUES DAY 1 to DAY 7 <110 DAY 8 to DAY 14 < 90 DAY 15 to ADULT 16-53 Performed By: #### A ####[facility] [id number] [place] [address] Admission Risk Screen - Adul ton 08-29-2022 [...] AlertFor Ebola-like Symptoms: Isolate Patient and Notify Provider/Bowling Ball Molder For Contact: Notify Provider/[place]ling [place] Molder Advance Directive: Advance Directive/DNRyes Advance Directive typeDurable Power of Computer Science Instructor for Healthcare Durable Power of Computer Science Instructor AvailabilityDPOA not available now Durable Power of Computer Science Instructor [id number] Durable Power of Computer Science Instructor contact (name and number)Corwin [phone] Ayala Fall Screen: History of falling (immediate [...] Communicateglasses Learning Preferencesverbal instruction Cultural Considerationscultural considerations zoroastrianism Developmental Considerationsnone Muslim Considerationsreligious considerations zoroastrianism Learning Assessment (Other Learner): Other learner availableno Depression Screen: During the past month, have you often been bothered by feeling down, depressed or hopelessno During the past month, have you often had little interest or pleasure in doing thingsno Have you had any thoughts of harming anyone elseno (1) [place] Suicide: Risk Screen Not Applicable/Able to Answerable to be screened In the Past Month: Have you wished you were or could go to sleep and not wake upno(1) In the Past Month: Have you had any actual thoughts of killing yourself no(1) Lifetime: Have you ever done, started to do, or prepared to do anything to end your lifeno [place] Suicide Risknegative Adult Nutrition Screen: Have you [...] Spiritual Screen: Are there any cultural, spiritual, tenriism practices/values/needs that are important for us to knowyes cath (more content not included)... Normal [facility] Ammonia, Plasmaon 08-29-2022 Ammonia (P) [Moles/Vol] 44 umol/L [facility] Work Phone: Comment on above: .REFERENCE VALUESDAY 1 to DAY 7 <110DAY 8 to DAY 14 < 90DAY 15 to ADULT 16-53 BILIRUBIN,DIRECTon 3 Bilirubin.indirect [Mass/Vol] 2.3 mg/dL High 0.0 - 0.3 [facility] Comment on above: Performed By: #### D BILI ####[facility] [id number] [place] [address] Bilirubin, Serum Direct - Co njugatedon 08-29-2022 Bilirubin.direct [Mass/Vol] 2.3 mg/dL above high threshold 0.0 - 0.[address] [facility] Work Phone: COMPREHENSIVE PANELon 2022 Albumin [Mass/Vol] 3.5 g/dL Normal 3.4 - 5.0 [facility] Comment on above: Performed By: #### C MP ####[facility] [id number] [place] [address] ALP [Catalytic activity/Vol] 158 U/L High 33 - 136 [facility] Comment on above: Performed By: #### C MP ####[facility] [id number] [place] [address] ALT [Catalytic activity/Vol] 45 U/L Normal 10 - 52 [facility] Comment on above: Result Comment: Raysa ents treated with Sulfasalazine may generate falsely decreased results for ALT. Performed By: #### C MP ####[facility] [id number] [place] [address] Anion gap [Moles/Vol] 15 mmol/L Normal 10 - 20 [facility] Comment on above: Performed By: #### C MP ####[facility] [id number] [place] [address] AST [Catalytic activity/Vol] 136 U/L High 9 - 39 [facility] Comment on above: Performed By: #### C MP ####[facility] [id number] [place] [address] Bilirubin [Mass/Vol] 4.4 mg/dL High 0.0 - 1.2 [facility] Comment on above: Performed By: #### C MP ####[id number] [place] [address] Calcium [Mass/Vol] 8.0 mg/dL Low 8.6 - 10.3 [facility] Comment on above: Performed By: #### C MP ####[facility] [id number] [place] [address] Chloride [Moles/Vol] 82 mmol/L Low 98 - 107 [facility] Comment on above: Performed By: #### C MP ####[facility] [id number] [place] [address] Creatinine [Mass/Vol] 0.43 mg/dL Low 0.50 - 1.30 [facility] Comment on above: Performed By: #### C MP ####[facility] [id number] [place] [address] eGFR MALE >90 Normal >90 [facility] Comment on above: Result Comment: CALC ULATIONS OF ESTIMATED GFR ARE PERFORMED USING THE 2020 CKD-EPI STUDY REFIT EQUATION WITHOUT THE RACE VARIABLE FOR THE IDMS-TRACEABLE CREATININE METHODS. https://jasn.asnjournals.org/content//ASN.8713173 988 Performed By: #### C MP ####[facility] [place] [address] Glucose [Mass/Vol] 115 mg/dL High 74 - 99 [facility] Comment on above: Performed By: #### C MP ####[id number] [place] [address] HCO3 (Bld) [Moles/Vol] 29 mmol/L Normal 21 - 32 [facility] Comment on above: Performed By: #### C MP ####[facility] [place] [address] Potassium [Moles/Vol] 3.2 mmol/L Low 3.5 - 5.3 [facility] Comment on above: Performed By: #### C MP ####[facility] [place] [address] Protein [Mass/Vol] 6.0 g/dL Low 6.4 - 8.2 [facility] Comment on above: Performed By: #### C MP ####[facility] [place] [address] Sodium [Moles/Vol] 123 mmol/L Low 136 - 145 [facility] Comment on above: Performed By: #### C MP ####[facility] [place] [address] Urea nitrogen [Mass/Vol] 10 mg/dL Normal 6 - 23 [facility] Comment on above: Performed By: #### C MP ####[facility] [place] [address] CREATINE KINASEon 08-29-2022 CK [Catalytic activity/Vol] 376 U/L High 0 - 325 [facility] Comment on above: Performed By: #### R ENAL #### [facility] [address] [place] [address] Consult-Gastroenterologyon 0 08-29-2022 Consult-Gastroentero logy Service: Service: Gastroenterology Consult: Consult requested by (Attending Name): Polo Sanchez Reason: Oropharyngeal dysphagia History of Present Illness: HPI: GWENDOLYN CHRISTOS Diana is a 77 year old Male The [...] Known Allergies: Objective: Objective Information: T PRBPMAPSpO2 [id number]/5695% Date/Time08/29 11: 11: 11: 11: 11:49 Range(36.2C [...] tenderness or (more content not included)... Normal [facility] Consult-Nephrologyon 023 Consult-Nephrology Service: Service: Nephrology Consult: [...] Known Allergies: Objective: Objective Information: T PRBPMAPSpO2 Value36.45693303/5695% Date/Time08/29 11: 11: 11: 11: 11:49 Range(36.2C [...] 29-Aug-2022 06 (more content not included)... Normal [facility] Consult-Pulmonologyon 2022 Consult-Pulmonology Service: Service: Pulmonology Consult: Consult requested by (Attending Name): Polo Sanchez Reason: On [facility] bone density History of Present [...] mildly elevated LA and BNP. Admitted to [facility] for further management. CT revealed a [...] Known Allergies: Objective: Objective Information: T PRBPMAPSpO2 [id number]/5896% Date/Time08/29 8: 8: 8: 8: 8:00 Range(36.2C [...] results: Comprehen (more content not included)... Normal [facility] Creatine Kinase, Levelon CK [Catalytic activity/Vol] 376 U/L above high threshold 0 - 325 [facility] Work Phone: Discharge Planning [id number] 0 08-29-2022 Discharge Planning Note2 Discharge Planning: Discharge Barriersmedical Planned Dispositionhome Discharge DestinationTBD Discharge Transportation Needed from [facility] of Choice Explainedyes preference Anticipated Discharge [id number] Discharge Planning 08/29/22 0800am Patient admitted for dysphagia, GI and Speech on to evaluate. Patient also complains of weakness at this time. Will continue to follow for possibel HHCvs SNF for DC planning. Lorrie Parekh RN, BSN, TCC 08/30/2022 1000 met with patient brother at bedside " Corwin" [phone] /POA he is requesting a DNR status, request re-directed to physician on duty. Discussed with patient brother need for discharge plan, brother stated he wanted to wait until further test, are performed and that he felt his brother was declining fast. Will follow for discharge planning needs Mirian JENKINS,RN,[facility] 08/31/2022 11:24 AM I met with patient's brother.We discussed that patient is recommended for SNF. He asked me to send referrals to 1) [facility] 2) [facility] 3) [facility] 4) [facility]. I requested CNC to send. I will follow up with bed availability. Alysa Brewer [facility] 08/31/2022 1140 DSC: Built and sent SNF referral to [facility], [facility], [facility] and [facility], awaiting a response. Zeina Weller Discharge Fast Brim Pouncer 08/31/2022 4:23 PM Message left for brother to discuss discharge plans. Alysa Brewer [facility] 08/31/2022 4:40 PM I spoke with patient's brother. He said Barbara Phillips is [facility]. Alysa Brewer GENERAL HARDWARE SALESPERSON 09/01/2022 900 DSC: Updates sent to [facility]. Zeina Weller Discharge Fast Brim Pouncer 09/02/2022 844 DSC: Updates sent to [facility]. Zeina Weller Discharge Fast Brim Pouncer 09/02/2022 planned GED today, continued with IV [...] let me know how you want to proceed". will follow for discharge planning Mirian JENKINS,RN,[facility] 09/02/2022 note to facility Since auth was already started and received at your facility prematurely can you please make provisions 'to receive patient please keep us updated TY Mirian JENKINS,RN,TCC 09/02/2022 3:12 PM Patient's brother called me. I updated him on bed availability at [facility]. He said that [facility] is ok if bed is not available at [facility]. Alysa Brewer [facility] 09/03/2022 15:13 PCN: Completed and submitted new auth for pt to go to [facility]. Pt has auth to admit. Relayed to team and sent the following message to the SNF via [employer]: Pt has auth to admit! AMY ID: [id number] 09/03-09/07 Updates due 09/07 Brenda is compliance reviewer fax updates to: [phone] Thanks! Trang [phone] [place] 09/03/2022 met with patient at bedside encouraged him to participate in his therapy to get better, patient brother at bedside agreeable, Planned discharge to [facility] 1-2 days Mirian JENKINS,RN,[facility] 09/03/2022 3:48 PM Brother notified that transport has been requested for a Tuesday discharge. Alysa Brewer [facility] 09/03/2022 1642 DSC: Transport confirmed for 12noon pickling operator on 09/04, facility notified. Zeina Weller Discharge Fast Brim Pouncer 09/03/2022 1655 DSC: PASRR completed in [facility]. Zeina Weller Discharge Fast Brim Pouncer Assessment: Discharge Planning Assessment [id number] Discharge Planning Assessment Completed byLorrie Parekh RN, BSN, TCC Primary Contact Name and NumberCorwin [phone](1) Prior Level of FunctioningIndependent prior to admission Lives Withalone(1) Living Arrangementshouse(1) Stated Reason for Admissionweakness, unable to eat(1) [facility] PCPBrian Jean Resource/Environmental Concernsnone(1) Anticipated Transition Toinpatient rehabilitation facility(1) Services Anticipated at Transitionrehabilitation services(1) InsuranceUnited Mycare Anticipated Changes Related to Illnessnone Equipment Needed After Dischargenone Anticipated Discharge Facility/Level of Care Needs.Home Discharge Documentation: Discharge Modestretcher Code StatusCode Status order at time of discharge: DNAR Patient already has a completed DNR State Form [place] DNR State Form Status: DNR Comfort Care Arrest Discharge Order Writtenyes [place] DNR Form Sent with Patient and/or Familyno Electronic Signatures: Trang Raymundo (PCN) (Signed 03-Sep-2022 15:13) Authored: Discharge Planning Lorrie Parekh (RN) (Signed 29-Aug-2022 08:04) Author (more content not included)... Normal [facility] EMR ADDONon 08-29-2022 ADDON CONFIRMATION Canceled Normal [facility] Comment on above: Order Comment: TEST EMR ADDON WAS CANCELLED, 08/29/2022 12:53 need sst tube (yellow/red top). Performed By: #### E MRAD ####[facility] [id number] [place] [id number] ADDON CONFIRMATION REQUEST REC'D Normal [facility] Comment on above: Performed By: #### E MRAD ####[facility] [id number] [place] [id number] ADDON CONFIRMATION REQUEST REC'D Normal [facility] Comment on above: Performed By: #### E MRAD ####[facility] [id number] [place] [id number] ADDON CONFIRMATION REQUEST REC'D Normal [facility] Comment on above: Performed By: #### R ENAL #### [facility] CNTR [address] [place] [id number] LACTATEon 08-29-2022 Lactate [Moles/Vol] 1.5 mmol/L Normal 0.4 - 2.0 [facility] Comment on above: Result Comment: Lisa puncture immediately after or during the administration of Metamizole may lead to falsely low results. Testing should be performed immediately prior to Metamizole dosing. MILD ICTERUS DETECTED. The result may be falsely decreased due to icterus or other interferents. Clinical correlation is recommended. Repeat testing may be considered. Performed By: #### L ACT ####[facility] [id number] [place] [address] Laboratory - Chemistry and C hemistry - challengeon 08-29-2022 Creatinine (U) [Mass/Vol] 178.0 mg/dL See Below [facility] Work Phone: Comment on above: Reference Range: 20. 0 - 370.0 Sodium (U) [Moles/Vol] 32 mmol/L See Below [facility] Work Phone: Comment on above: Reference Range: Not Established Sodium/Creatinine (U) [Ratio] 18 {mmol/g_Creat} See Below [facility] Work Phone: Comment on above: Reference Range: Not Established Albumin BCP dye [Mass/Vol] 3.5 g/dL 3.4 - 5.[address] [facility] Work Phone: ALP [Catalytic activity/Vol] 158 U/L above high threshold 33 - [address] [facility] Work Phone: ALT With P-5'-P [Catalytic activity/Vol] 45 U/L 10 - [address] [facility] Work Phone: Comment on above: Patients treated wit h Sulfasalazine may generate falsely decreased results for ALT. Anion gap [Moles/Vol] 15 mmol/L 10 - [address] [facility] Work Phone: AST With P-5'-P [Catalytic activity/Vol] 136 U/L above high threshold 9 - [address] [facility] Work Phone: Bilirubin [Mass/Vol] 4.4 mg/dL above high threshold 0.0 - 1.2 -[facility] Work Phone: Calcium [Mass/Vol] 8.0 mg/dL below low threshold 8.6 - 10.3 -[facility] Work Phone: Chloride [Moles/Vol] 82 mmol/L below low threshold 98 - 107 -[facility] Work Phone: CO2 [Moles/Vol] 29 mmol/L 21 - 32 [facility] Work Phone: Creatinine [Mass/Vol] 0.43 mg/dL below low threshold See Below -[facility] Work Phone: Comment on above: Reference Range: 0.5 0 - 1.30 Glucose [Mass/Vol] 115 mg/dL above high threshold 74 - 99 [facility] Work Phone: Potassium [Moles/Vol] 3.2 mmol/L below low threshold 3.5 - 5.3 -[facility] Work Phone: Protein [Mass/Vol] 6.0 g/dL below low threshold 6.4 - 8.2 -[facility] Work Phone: Sodium [Moles/Vol] 123 mmol/L below low threshold 136 - 145 -[facility] Work Phone: Urea nitrogen [Mass/Vol] 10 mg/dL 6 - 23 MP-[facility] Work Phone: Anion gap 4 (BldV) [Moles/Vol] 6 mmol/L below low threshold 10 - 25 [facility] Work Phone: Base excess Calc (BldV) [Moles/Vol] 9.3 mmol/L above high threshold -2.0 - 3.0 MP-[facility] Work Phone: Calcium.ionized (BldV) [Moles/Vol] 0.98 mmol/L below low threshold See Below [facility] Work Phone: Comment on above: Reference Range: 1.1 0 - 1.33 Chloride (BldV) [Moles/Vol] 82 mmol/L below low threshold 98 - 107 [facility] Work Phone: CO2 (BldV) [Partial pressure] 46 mm[Hg] 41 - 51 [facility] Work Phone: Glucose [Mass/Vol] 133 mg/dL above high threshold 74 - 99 [facility] Work Phone: HCO3 (Bld) [Moles/Vol] 34.3 mmol/L above high threshold See Below [facility] Work Phone: Comment on above: Reference Range: 22. 0 - 26.0 Lactate (BldV) [Moles/Vol] 3.2 mmol/L above high threshold 0.4 - 2.[address] [facility] Work Phone: Oxygen (BldV) [Partial pressure] 27 mm[Hg] below low threshold 35 - 45 [facility] Work Phone: Oxyhemoglobin (BldV) [Mass fraction] 42.2 % below low threshold See Below [facility] Work Phone: Comment on above: Reference Range: 45. 0 - 75.0 pH (BldV) 7.48 [pH] above high threshold See Below [facility] Work Phone: Comment on above: Reference Range: 7.3 3 - 7.43 Potassium (BldV) [Moles/Vol] 3.2 mmol/L below low threshold 3.5 - 5.3 [facility] Work Phone: Sodium (BldV) [Moles/Vol] 119 mmol/L Critically low 136 - [address] [facility] Work Phone: Comment on above: CRIT SOD CALLED RB T O DAVE RILEY., 08/29/2022 03:32 Creatinine (U) [Mass/Vol] 162.0 mg/dL See Below [facility] Work Phone: Comment on above: Reference Range: 20. 0 - 370.0 Sodium (U) [Moles/Vol] 16 mmol/L See Below [facility] Work Phone: Comment on above: Reference Range: Not Established Sodium/Creatinine (U) [Ratio] 10 {mmol/g_Creat} See Below [facility] Work Phone: Comment on above: Reference Range: Not Established Laboratory - Hematology and Cell countson 08-29-2022 Hematocrit Est (Bld) [Volume fraction] 45.0 % See Below [facility] Work Phone: Comment on above: Reference Range: 41. 0 - 52.0 Hemoglobin (Bld) [Mass/Vol] 15.1 g/dL See Below [facility] Work Phone: Comment on above: Reference Range: 13. 5 - 17.5 Lactate, Levelon 08-29-2022 Lactate [Moles/Vol] 1.5 mmol/L 0.4 - 2.0 [facility] Work Phone: Comment on above: Venipuncture immedia tely after or during the administration of Metamizole may lead to falsely low results. Testing should be performed immediately prior to Metamizole dosing.MILD ICTERUS DETECTED. The result may be falsely decreased due to icterusor other interferents. Clinical correlation is recommended. Repeat testingmay be considered. No Panel Informationon 08-29 >90 >[address] [facility] Work Phone: Comment on above: CALCULATIONS OF ROSANA MATED GFR ARE PERFORMED USING THE 2020 CKD-EPI STUDY REFIT EQUATION WITHOUT THE RACE VARIABLE FOR THE IDMS-TRACEABLE CREATININE METHODS.https://jasn.asnjournals.org/content//ASN .5838125462 Inhaled oxygen concentration 21 % [facility] Work Phone: OT Evaluation [id number] ton 08-29-2022 OT Evaluation [id number] Rehab: Info: Mode of Treatmentco-treatment; occupational therapy Time IN11:11 Time OUT11:45 Total Treatment [id number] Total Minutes CommentUntimed eval with PT + [...] none. Onset of Illness/Injury or Date of [id number] Reason for Referralnew documented impairments affecting ADLs Referring PhysicianShapiro General Observations of Patientpt supine in bed upon arrival, family present for session. pt self-limiting and saying I can't move at all however agreeable with encouragement. Pt reporting had a recent fall with R knee pain/swelling. Pertinent History of Current Functional Mozlvqs34 year old Male with a past medical history of hypertension, hyperlipidemia, anemia, alcohol use disorder, BPH, anxiety, hypothyroidism, gouty arthritis who presented to [facility] complaining of worsening dysphagia to [...] mildly elevated LA and BNP. Admitted to [facility] for further management. CT revealed a [...] to sit; sit to supine; scooting/bridging Scoot/Bridge [place] (Bed Mobility)maximum assist (25% patient effort); 2 person assist; MAX A x2 for lateral scooting towards R side while seated EOB to position self closer to HOB Rshvgp-kj-Otz [place] (Bed Mobility)dependent (less than 25% patient effort); 2 person assist; Total A x2 for managing BLE and trunk Ubn-lt-Xuyrew [place] (Bed Mobility)dependent (less than 25% patient effort); 2 person assist; Total A x2 for managing BLE and trunk Transfer Assessment/Interventionssi t to stand transfer; stand to sit transfer Sit-Stand [place] (Transfers)maximum assist (25% patient effort); 2 person assist; MAX A x2 to ascend from EOB with gait belt, walker and arm and arm assist. required VCs for hand placement Sit-Stand Assistive Device (Transfers)walker, front-wheeled Stand-Sit [place] (Transfers)maximum assist (25% patient effort); 2 person assist Stand-Sit Assistive Device (Transfers)walker, front-wheeled Impairments Impacting Function (Mobility)balance; endurance/activity tolerance; strength; postural/trunk control ADL: BADL Assessment/Interventionlow er body dressing; upper body dressing [place] Level (Upper Body Dressing)maximum assist (25% patient effort) Position (Upper Body Dressing)supine Comment (Upper Body Dressing)MAX A for [facility] gown [place] Level (Lower Body Dressing)dependent (less than 25% patient effort) Comment (Lower Body Dressing)Total A for [facility] socks due to decreased strength and mobility Impairments, BADL Safety/Performancebalance; endurance/activity tolerance; strength; pain; trunk/postural control Motor: Sitting, Static (Balance)f (more content not included)... Normal [facility] Osmolality, Urine 24 Houron 08-29-2022 Osmolality (24H U) [Osmolality] 674 {mOsm/kg} 200 - 1200 [employer] [facility] Work Phone: Osmolality, Urine Spoton Osmolality (U) [Osmolality] Canceled [employer] [facility] Work Phone: PT Evaluation [id number] ton 08-29-2022 PT Evaluation [id number]-lj-[id number] Rehab: Info: Mode of Treatmentco-treatment; physical therapy Time IN11:16 Time OUT11:46 Total Treatment [id number] Total Minutes CommentCo-eval with OT to maximize [...] none. Onset of Illness/Injury or Date of [id number] Reason for Referralnew documented impairments affecting ADLs Referring PhysicianShapiro General Observations of Patientpt supine in bed upon arrival, family present for session. pt self-limiting and saying I can't move at all however agreeable with encouragement. Pt reporting had a recent fall with R knee pain/swelling. Pertinent History of Current Functional Pfeetcz23 year old Male with a past medical history of hypertension, hyperlipidemia, anemia, alcohol use disorder, BPH, anxiety, hypothyroidism, gouty arthritis who presented to [facility] complaining of worsening dysphagia to [...] mildly elevated LA and BNP. Admitted to [facility] for further management. CT revealed a [...] to sit; sit to supine; scooting/bridging Scoot/Bridge [place] (Bed Mobility)maximum assist (25% patient effort); 2 person assist; MAX A x2 for lateral scooting towards R side while seated EOB to position self closer to HOB Ksqspu-sq-Pdq [place] (Bed Mobility)dependent (less than 25% patient effort); 2 person assist; Total A x2 for managing BLE and trunk Xcr-om-Qvymmf [place] (Bed Mobility)dependent (less than 25% patient effort); 2 person assist; Total A x2 for managing BLE and trunk Transfer Assessment/Interventionssi t to stand transfer; stand to sit transfer Sit-Stand [place] (Transfers)maximum assist (25% patient effort); 2 person assist; MAX A x2 to ascend from EOB with gait belt, walker and arm and arm assist. required VCs for hand placement Sit-Stand Assistive Device (Transfers)walker, front-wheeled Stand-Sit [place] (Transfers)maximum assist (25% patient effort); 2 person [...] Static (Balance)fair balance Sitting, Dynamic (Balance)poor balance Tvc-vu-Yztlx (Balance)poor balance Standing, Static (Balance)poor balance Sensory: Pre-Treatment Pain Rating5/10 Post-Treatment Pain Rating7/10 Pain LocationR knee Health: Observed Emotional Statecooperative Plan of Care Reviewed Withpatient; family Impression: (more content not included)... Normal [facility] Patient Profile - Adult v2on 08-29-2022 Patient Profile - Adult v2 Profile: Initial Info: How to be AddressedDaniel Spoken Language PreferredEnglish Stated Reason for Admissionweakness, unable to eat Primary Contact Name and NumberCorwin [phone] Wants Family/Rep Notified of Admissionyes, primary contact Notify PCPnotify PCP Informed of Patient Visiting Rightsyes Arrived Fromedon Patient Belongingsremains with patient Patient Belongings Remaining with Patientclothing Medications Brought to Hospitalno General Health: Weight in kg70 kilogram(s)(1) Weight in phq485.3 pound(s) Weight Methodactual (measured) Scale Typebed Height [...] Known Allergies: Active Electronic Signatures: Lorrie Bullard (REGULO) (Signed 29-Aug-2022 01:09) Authored: Initial Info, General Health, RSP Based Care, Substance, Health Mgmt, Relationship/Environ, Additional Information Last Updated: 29-Aug-2022 01:09 by Lorrie Bullard (REGULO) References: 1. Data Referenced From 1. Vital Signs 28-Aug-2022 17:07 Normal [facility] Provider Note - ED v3on 04-2 Provider [...] patient with (more content not included)... Normal [facility] SODIUM, URINE SPOTon 023 CREATININE,URINE 178.0 mg/dL Normal 20.0 - 370.0 [facility] Comment on above: Performed By: #### M G #### [facility] [address] [place] [address] Sodium (U) [Moles/Vol] 32 mmol/L Normal Not Established [facility] Comment on above: Performed By: #### M G #### [facility] [address] [place] [address] SODIUM/CREAT RATIO 18 mmol/g Creat Normal Not Established [facility] Comment on above: Performed By: #### M G #### [facility] [address] [place] [id number] CREATININE,URINE 162.0 mg/dL Normal 20.0 - 370.0 [facility] Comment on above: Performed By: #### M G #### [facility] [address] [place] [id number] Sodium (U) [Moles/Vol] 16 mmol/L Normal Not Established [facility] Comment on above: Performed By: #### M G #### [facility] [address] [place] [id number] SODIUM/CREAT RATIO 10 mmol/g Creat Normal Not Established [facility] Comment on above: Performed By: #### M G #### [facility] [address] [place] [address] UA MICROSCOPICon 08-29-2022 BACTERIA 1+ /HPF Abnormal [facility] Comment on above: Performed By: #### R ENAL #### [facility] [address] [place] [address] Mucus Ql (Urine sed) 4+ /LPF Normal [facility] Comment on above: Performed By: #### R ENAL #### [facility] [address] [place] [address] RBC none Normal 0-5 [facility] Comment on above: Performed By: #### R ENAL #### [facility] [address] [place] [id number] SQUAMOUS EPITH. CELLS 1 /HPF Normal [facility] Comment on above: Performed By: #### R ENAL #### [facility] [address] [place] [id number] WBC none Normal 0-5 [facility] Comment on above: Performed By: #### R ENAL #### [facility] [address] [place] [address] URINALYSIS WITH CULTURE IF I NDICATEDon 08-29-2022 Appearance (U) CLEAR Normal CLEAR [facility] Comment on above: Performed By: #### V TB12 #### [facility] [address] [place] [address] Bilirubin Ql (U) MODERATE(2+) Abnormal NEGATIVE [facility] Comment on above: Performed By: #### V TB12 #### [facility] [address] [place] [address] Color (U) BROWN Normal STRAW,YELLOW [facility] Comment on above: Performed By: #### V TB12 #### [facility] [address] [place] [address] Glucose Ql (U) Negative Normal NEGATIVE [facility] Comment on above: Performed By: #### V TB12 #### [facility] [address] [place] [address] Hemoglobin Ql (U) TRACE Abnormal NEGATIVE [facility] Comment on above: Performed By: #### V TB12 #### [facility] [address] [place] [address] Ketones Ql (U) 25 (1+) Abnormal NEGATIVE [facility] Comment on above: Performed By: #### V TB12 #### [facility] [address] [place] [address] Leukocyte esterase Test strip Ql (U) Negative Normal NEGATIVE [facility] Comment on above: Performed By: #### V TB12 #### [facility] [address] [place] [address] Nitrite Ql (U) Negative Normal NEGATIVE [facility] Comment on above: Performed By: #### V TB12 #### [facility] [address] [place] [address] pH (U) 6.5 [pH] Normal 5.0 - 8.0 [facility] Comment on above: Performed By: #### V TB12 #### [facility] [address] [place] [address] Protein Ql (U) 30 (1+) Abnormal NEGATIVE [facility] Comment on above: Performed By: #### V TB12 #### [facility] [address] [place] [address] Specific gravity (U) [Rel density] 1.025 Normal 1.005 - 1.035 [facility] Comment on above: Performed By: #### V TB12 #### [facility] [address] [address] [place] [address] Urobilinogen (U) [Mass/Vol] mg/dL High 0.0 - 1.9 [facility] Comment on above: Result Comment: SOME PIGMENTS AND MEDICATIONS MAY CAUSE A FALSE POSITIVE UROBILINOGEN Performed By: #### V TB12 #### [facility] [address] [address] [place] [address] Lab Specimen Source Normal [facility] Comment on above: Performed By: #### V TB12 #### [facility] [address] [place] [address] Color (U) BROWN See Below [facility] Work Phone: Comment on above: SOURCE: Reference Ra nge: STRAW,YELLOW Glucose Ql (U) Negative NEGATIVE [facility] Work Phone: Ketones Ql (U) 25 (1+) Abnormal NEGATIVE [facility] Work Phone: Leukocyte esterase Test strip Ql (U) Negative NEGATIVE [facility] Work Phone: pH (U) 6.5 [pH] 5.0 - 8.0 [facility] Work Phone: Protein (U) [Mass/Vol] 30 (1+) Abnormal NEGATIVE [facility] [employer] Work Phone: RBC (U) [#/Vol] TRACE Abnormal NEGATIVE [facility] Work Phone: Specific gravity (U) [Rel density] 1.025 1 See Below [facility] Work Phone: Comment on above: Reference Range: 1.0 05 - 1.035 URINALYSIS WITH CULTURE IF INDICATED Negative NEGATIVE -[facility] Work Phone: URINALYSIS WITH CULTURE IF INDICATED >12.0 above high threshold 0.0 - 1.9 -[facility] Work Phone: Comment on above: SOME PIGMENTS AND ME DICATIONS MAY CAUSE AFALSE POSITIVE UROBILINOGEN URINALYSIS WITH CULTURE IF INDICATED MODERATE(2+) Abnormal NEGATIVE -[facility] Work Phone: URINALYSIS WITH CULTURE IF INDICATED CLEAR CLEAR -[facility] Work Phone: Urinalysis, Microscopicon Urinalysis, Microscopic 4+ [facility] Work Phone: Urinalysis, Microscopic 1+ Abnormal -[facility] Work Phone: Urinalysis, Microscopic 1 {/HPF} -[facility] Work Phone: Urinalysis, Microscopic none 0-5 -[facility] Work Phone: VENOUS FULL PANELon 08-30-19 23 Anion gap [Moles/Vol] 6 mmol/L Low 10 - 25 [facility] Comment on above: Order Comment: CRIT SOD CALLED RB TO DAVE RILEY., 08/29/2022 03:32 Performed By: #### G ZOHREH #### [facility] [address] [place] [address] BASE EXCESS-BLOOD 9.3 mmol/L High -2.0 - 3.0 [facility] Comment on above: Order Comment: CRIT SOD CALLED RB TO DAVE RILEY., 08/29/2022 03:32 Performed By: #### G ZOHREH #### [facility] [address] [place] [address] BICARB, CALCULATED 34.3 mmol/L High 22.0 - 26.0 [facility] Comment on above: Order Comment: CRIT SOD CALLED RB TO DAVE RILEY., 08/29/2022 03:32 Performed By: #### G ZOHREH #### [facility] [address] [place] [address] CALCIUM,IONIZED 0.98 mmol/L Low 1.10 - 1.33 [facility] Comment on above: Order Comment: CRIT SOD CALLED RB TO DAVE RILEY., 08/29/2022 03:32 Performed By: #### G ZOHREH #### [facility] [address] [place] [address] Chloride [Moles/Vol] 82 mmol/L Low 98 - 107 [facility] Comment on above: Order Comment: CRIT SOD CALLED RB TO DAVE RILEY., 08/29/2022 03:32 Performed By: #### G ZOHREH #### [facility] [address] [place] [address] FIO2 21 % Normal [facility] Comment on above: Order Comment: CRIT SOD CALLED RB TO DAVE RILEY., 08/29/2022 03:32 Performed By: #### G ZOHREH #### [facility] [address] [place] [address] Glucose [Mass/Vol] 133 mg/dL High 74 - 99 [facility] Comment on above: Order Comment: CRIT SOD CALLED RB TO DAVE RILEY., 08/29/2022 03:32 Performed By: #### G ZOHREH #### [facility] [address] [place] [address] Hematocrit (Bld) [Volume fraction] 45.0 % Normal 41.0 - 52.0 [facility] Comment on above: Order Comment: CRIT SOD CALLED RB TO DAVE RILEY., 08/29/2022 03:32 Performed By: #### G ZOHREH #### [facility] [address] [place] [address] Hemoglobin (Bld) [Mass/Vol] 15.1 g/dL Normal 13.5 - 17.5 [facility] Comment on above: Order Comment: CRIT SOD CALLED RB TO DAVE RILEY., 08/29/2022 03:32 Performed By: #### G ZOHREH #### [facility] [address] [place] [address] Lactate [Moles/Vol] 3.2 mmol/L High 0.4 - 2.0 [facility] Comment on above: Order Comment: CRIT SOD CALLED RB TO DAVE RILEY., 08/29/2022 03:32 Performed By: #### G ZOHREH #### [facility] [address] [place] [address] OXY HGB 42.2 % Low 45.0 - 75.0 [facility] Comment on above: Order Comment: CRIT SOD CALLED RB TO DAVE RILEY., 08/29/2022 03:32 Performed By: #### G ZOHREH #### [facility] [address] [place] [address] Oxygen (Bld) [Partial pressure] 27 mm[Hg] Low 35 - 45 [facility] Comment on above: Order Comment: CRIT SOD CALLED RB TO DAVE RILEY., 08/29/2022 03:32 Performed By: #### G ZOHREH #### [facility] [address] [place] [address] PATIENT TEMPERATURE 37.0 degrees C Normal [facility] Comment on above: Order Comment: CRIT SOD CALLED RB TO DAVE RILEY., 08/29/2022 03:32 Result Comment: NOTE : PATIENT RESULTS ARE NOT CORRECTED FOR TEMPERATURE. Performed By: #### G ZOHREH #### [facility] [address] [place] [address] PCO2 46 mmHg Normal 41 - 51 [facility] Comment on above: Order Comment: CRIT SOD CALLED RB TO DAVE RILEY., 08/29/2022 03:32 Performed By: #### G ZOHREH #### [facility] [address] [place] [address] pH (Bld) 7.48 [pH] High 7.33 - 7.43 [facility] Comment on above: Order Comment: CRIT SOD CALLED RB TO DVAE RILEY., 08/29/2022 03:32 Performed By: #### G ZOHREH #### [facility] [address] [place] [address] Potassium [Moles/Vol] 3.2 mmol/L Low 3.5 - 5.3 [facility] Comment on above: Order Comment: CRIT SOD CALLED RB TO DAVE RILEY., 08/29/2022 03:32 Performed By: #### G ZOHREH #### [facility] [address] [place] [address] SO2 43 % Low 45 - 75 [facility] Comment on above: Order Comment: CRIT SOD CALLED RB TO DAVE RILEY., 08/29/2022 03:32 Performed By: #### G ZOHREH #### [facility] [address] [place] [address] Sodium [Moles/Vol] 119 mmol/L Critically low 136 - 145 [facility] Comment on above: Order Comment: CRIT SOD CALLED RB TO DAVE RILEY., 08/29/2022 03:32 Result Comment: CRIT SOD CALLED RB TO DAVE RILEY., 08/29/2022 03:32 Performed By: #### G ZOHREH #### [facility] [address] [place] [address] Vital signson 08-29-2022 Oxygen saturation in Venous blood 43 % below low threshold 45 - 75 -[facility] Work Phone: Alcohol, Serumon 08-28-2022 Ethanol [Mass/Vol] mg/dL [facility] Work Phone: Comment on above: FOR MEDICAL USE ONLY . .REF VALUES <10 BNPon 08-28-2022 Natriuretic peptide B (Bld) [Mass/Vol] 111 pg/mL High 0 - 99 [facility] Comment on above: Result Comment: . <1 00 pg/mL - Heart failure unlikely 100-299 pg/mL - Intermediate probability of acute heart . failure exacerbation. Correlate with clinical . context and patient history. >=300 pg/mL - Heart Failure likely. Correlate with clinical . context and patient history. BNP testing is performed using different testing methodology at [facility] than at other [facility]. Direct result comparisons should only be made within the same method. Performed By: #### M G #### [facility] [address] [place] [address] CBC AND DIFFERENTIALon 08-28 % AUTOMATED IMMATURE GRAN 0.4 % Normal 0.0 - 0.9 [facility] Comment on above: Result Comment: Robyn ture Granulocyte Count (IG) includes promyelocytes, myelocytes and metamyelocytes but does not include bands. Percent differential counts (%) should be interpreted in the context of the absolute cell counts (cells/L). Performed By: #### G ZOHREH #### [facility] [address] [place] [id number] Basophils (Bld) [#/Vol] 0.04 10*3/uL Normal 0.00 - 0.10 [facility] Comment on above: Performed By: #### G ZOHREH #### [facility] [address] [place] [id number] Basophils/100 WBC (Bld) 0.4 % Normal 0.0 - 2.0 [facility] Comment on above: Performed By: #### G ZOHREH #### [facility] [address] [place] [id number] Erythrocyte distribution width (RBC) [Ratio] 14.4 % Normal 11.5 - 14.5 [facility] Comment on above: Performed By: #### G ZOHREH #### [facility] [address] [place] [id number] Hematocrit (Bld) [Volume fraction] 32.3 % Low 41.0 - 52.0 [facility] Comment on above: Performed By: #### G ZOHREH #### [facility] [address] [place] [address] Hemoglobin (Bld) [Mass/Vol] 11.6 g/dL Low 13.5 - 17.5 [facility] Comment on above: Performed By: #### G ZOHREH #### [facility] [address] [place] [address] Lymphocytes (Bld) [#/Vol] 0.22 10*3/uL Low 0.80 - 3.00 [facility] Comment on above: Performed By: #### G ZOHREH #### [facility] [address] [place] [address] Lymphocytes/100 WBC (Bld) 2.3 % Normal 13.0 - 44.0 [facility] Comment on above: Performed By: #### G ZOHREH #### [facility] [address] [place] [address] MCHC (RBC) [Mass/Vol] 35.9 g/dL Normal 32.0 - 36.0 [facility] Comment on above: Performed By: #### G ZOHREH #### [facility] [address] [place] [address] MCV (RBC) [Entitic vol] 98 fL Normal 80 - 100 [facility] Comment on above: Performed By: #### G ZOHREH #### [facility] [address] [place] [address] Monocytes (Bld) [#/Vol] 0.29 10*3/uL Normal 0.05 - 0.80 [facility] Comment on above: Performed By: #### G ZOHREH #### [facility] [address] [place] [address] Monocytes/100 WBC (Bld) 3.1 % Normal 2.0 - 10.0 [facility] Comment on above: Performed By: #### G ZOHREH #### [facility] [address] [place] [address] Neutrophils (Bld) [#/Vol] 8.87 10*3/uL High 1.60 - 5.50 [facility] Comment on above: Performed By: #### G ZOHREH #### [facility] [address] [place] [address] Neutrophils/100 WBC (Bld) 93.8 % Normal 40.0 - 80.0 [facility] Comment on above: Performed By: #### G ZOHREH #### [facility] [address] [place] [address] Platelets (Bld) [#/Vol] 141 10*3/uL Low 150 - 450 [facility] Comment on above: Performed By: #### G ZOHREH #### [facility] [address] [place] [address] RBC 3.30 x10E12/L Low 4.50 - 5.90 [facility] Comment on above: Performed By: #### G ZOHREH #### [facility] [address] [place] [address] WBC (Bld) [#/Vol] 9.5 10*3/uL Normal 4.4 - 11.3 [facility] Comment on above: Performed By: #### G ZOHREH #### [facility] [address] [place] [address] COAGULATION SCREENon 023 aPTT Coag (Bld) [Time] 31 s Normal 26 - 39 [facility] Comment on above: Result Comment: THE APTT IS NO LONGER USED FOR MONITORING UNFRACTIONATED HEPARIN THERAPY. FOR MONITORING HEPARIN THERAPY, USE THE HEPARIN ASSAY. Performed By: #### C OAGS #### [facility] [address] [place] [address] PT Coag (PPP) [Time] 10.9 s Normal 9.8 - 13.4 [facility] Comment on above: Performed By: #### C OAGS #### [facility] [address] [place] [id number] PT, INR 0.9 Normal 0.9 - 1.1 [facility] Comment on above: Performed By: #### C OAGS #### [facility] [address] [place] [address] COMPREHENSIVE PANELon 04-22- 2023 Albumin [Mass/Vol] 4.2 g/dL Normal 3.4 - 5.0 [facility] Comment on above: Performed By: #### G ZOHREH #### [facility] [address] [place] [address] ALP [Catalytic activity/Vol] 174 U/L High 33 - 136 [facility] Comment on above: Performed By: #### G ZOHREH #### [facility] [address] [place] [address] ALT [Catalytic activity/Vol] 46 U/L Normal 10 - 52 [facility] Comment on above: Result Comment: Raysa ents treated with Sulfasalazine may generate falsely decreased results for ALT. Performed By: #### G ZOHREH #### [facility] [address] [place] [address] Anion gap [Moles/Vol] 19 mmol/L Normal 10 - 20 [facility] Comment on above: Performed By: #### G ZOHREH #### [facility] [address] [place] [address] AST [Catalytic activity/Vol] 127 U/L High 9 - 39 [facility] Comment on above: Result Comment: MILD HEMOLYSIS DETECTED. The result may be falsely elevated due to hemolysis or other interferents. Clinical correlation is recommended. Repeat testing may be considered. Performed By: #### G ZOHREH #### [facility] [address] [place] [address] Bilirubin [Mass/Vol] 4.9 mg/dL High 0.0 - 1.2 [facility] Comment on above: Performed By: #### G ZOHREH #### [facility] [address] [place] [address] Calcium [Mass/Vol] 8.7 mg/dL Normal 8.6 - 10.3 [facility] Comment on above: Performed By: #### G ZOHREH #### [facility] [address] [place] [address] Chloride [Moles/Vol] 79 mmol/L Low 98 - 107 [facility] Comment on above: Performed By: #### G ZOHREH #### [facility] [address] [place] [address] Creatinine [Mass/Vol] 0.59 mg/dL Normal 0.50 - 1.30 [facility] Comment on above: Performed By: #### G ZOHREH #### [facility] [address] [place] [address] eGFR MALE >90 Normal >90 [facility] Comment on above: Result Comment: CALC ULATIONS OF ESTIMATED GFR ARE PERFORMED USING THE 2020 CKD-EPI STUDY REFIT EQUATION WITHOUT THE RACE VARIABLE FOR THE IDMS-TRACEABLE CREATININE METHODS. https://jasn.asnjournals.org/content/early/ASN.6820585 988 Performed By: #### G ZOHREH #### [facility] [address] [place] [address] Glucose [Mass/Vol] 122 mg/dL High 74 - 99 [facility] Comment on above: Performed By: #### G ZOHREH #### [facility] [address] [place] [address] HCO3 (Bld) [Moles/Vol] 29 mmol/L Normal 21 - 32 [facility] Comment on above: Performed By: #### G ZOHREH #### [facility] [address] [place] [address] Potassium [Moles/Vol] 3.5 mmol/L Normal 3.5 - 5.3 [facility] Comment on above: Result Comment: MILD HEMOLYSIS DETECTED. The result may be falsely elevated due to hemolysis or other interferents. Clinical correlation is recommended. Repeat testing may be considered. Performed By: #### G ZOHREH #### [facility] [address] [place] [address] Protein [Mass/Vol] 7.4 g/dL Normal 6.4 - 8.2 [facility] Comment on above: Performed By: #### G ZOHREH #### [facility] [address] [place] [address] Sodium [Moles/Vol] 123 mmol/L Low 136 - 145 [facility] Comment on above: Performed By: #### G ZOHREH #### [facility] [address] [place] [address] Urea nitrogen [Mass/Vol] 10 mg/dL Normal 6 - 23 [facility] Comment on above: Performed By: #### G ZOHREH #### [facility] [address] [place] [id number] CORONAVIRUS 2019, SCREEN ASY MPTOMATICon 08-28-2022 SARS-CoV-2 (COVID-19) RNA NEVIN+probe Ql (Unsp spec) Not detected Normal Not Detected [facility] Comment on above: Result Comment: . This test has received FDA Emergency Use Authorization (EUA) and has been verified by [facility]. This test is only authorized for the duration of time that circumstances exist to justify the authorization of the emergency use of in vitro diagnostic tests for the detection of SARS-CoV-2 virus and/or diagnosis of COVID-19 infection under section 564(b)(1) of the Act, 21 U.S.C. 360bbb-3(b)(1), unless the authorization is terminated or revoked sooner. [facility] is certified under CLIA-88 as qualified to perform high complexity testing. Testing is performed in the [facility] laboratory located at [address] [place] [address]. SARS-CoV-2/Flu/RSV Multiplex Test: Fact sheet for providers: https://www.fda.gov/media/862613/download Fact sheet for patients: https://www.fda.gov/media/133111/download Performed By: #### V TB12 #### [facility] [address] [place] [address] Lab Specimen Source Nasal, Nasopharyngeal Normal [facility] Comment on above: Performed By: #### V TB12 #### [facility] [address] [place] [id number] CT CHEST ABDOMEN PELVIS W IV CONTRASTon 08-28-2022 CT CHEST ABDOMEN PELVIS W IV CONTRAST Patient Name: CHRISTOS LYONS STUDY: CT CHEST ABDOMEN PELVIS W IV CONTRAST; ; 08/28/2022 8:20 pm INDICATION: pain scleral icterus fatigue dysphagia . COMPARISON: None. 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 [id number] discogenic degeneration in the remaining visible spine. [...] presacral regio (more content not included)... Normal [facility] CT Chest Abdomen Pelvis with IV Contraston 08-28-2022 CT Chest and Abdomen and Pelvis W contrast IV Normal [facility] Work Phone: Complete Blood Count + Diffe rentialon 08-28-2022 Basophils/100 WBC (Bld) 0.4 % 0.0 - 2.0 [facility] Work Phone: Erythrocyte distribution width (RBC) [Ratio] 14.4 % See Below [facility] Work Phone: Comment on above: Reference Range: 11. 5 - 14.5 Hematocrit (Bld) [Volume fraction] 32.3 % below low threshold See Below [facility] Work Phone: Comment on above: Reference Range: 41. 0 - 52.0 Hemoglobin (Bld) [Mass/Vol] 11.6 g/dL below low threshold See Below [facility] Work Phone: Comment on above: Reference Range: 13. 5 - 17.5 Lymphocytes/100 WBC (Bld) 2.3 % See Below [facility] Work Phone: Comment on above: Reference Range: 13. 0 - 44.0 MCHC (RBC) [Mass/Vol] 35.9 g/dL See Below [facility] Work Phone: Comment on above: Reference Range: 32. 0 - 36.0 MCV (RBC) [Entitic vol] 98 fL 80 - 100 [facility] Work Phone: Monocytes/100 WBC (Bld) 3.1 % 2.0 - 10.0 [facility] Work Phone: Neutrophils/100 WBC (Bld) 93.8 % See Below [facility] [facility] Work Phone: Comment on above: Reference Range: 40. 0 - 80.0 Platelets (Bld) [#/Vol] 141 10*3/uL below low threshold 150 - 450 -[facility] Work Phone: RBC (Bld) [#/Vol] 3.30 {x10E12/L} below low threshold See Below [facility] Work Phone: Comment on above: Reference Range: 4.5 0 - 5.90 WBC (Bld) [#/Vol] 9.5 10*3/uL 4.4 - 11.3 [facility] Work Phone: Complete Blood Count + Differential 0.04 {x10E9/L} See Below [facility] Work Phone: Comment on above: Reference Range: 0.0 0 - 0.10 Complete Blood Count + Differential 0.29 {x10E9/L} See Below [facility] Work Phone: Comment on above: Reference Range: 0.0 5 - 0.80 Complete Blood Count + Differential 0.22 {x10E9/L} below low threshold See Below [facility] Work Phone: Comment on above: Reference Range: 0.8 0 - 3.00 Complete Blood Count + Differential 8.87 {x10E9/L} above high threshold See Below [facility] Work Phone: Comment on above: Reference Range: 1.6 0 - 5.50 Complete Blood Count + Differential 0.4 % 0.0 - 0.[address] [facility] Work Phone: Comment on above: Immature Granulocyte Count (IG) includes promyelocytes, myelocytes and metamyelocytes but does not include bands. Percent differential counts (%) should be interpreted in the context of the absolute cell counts (cells/L). Coronavirus 2019 RNA by PCR, Screening Asymptomticon 08-28-2022 Coronavirus 2019 RNA by PCR, Screening Asymptomtic Not detected Normal See Below [facility] Work Phone: Comment on above: SOURCE: Nasal, Nasop haryngealReference Range: Not Detected.This test has received FDA Emergency Use Authorization (EUA) and has been verified by [facility]. This test is only authorized for the duration of time that circumstances exist to justify the authorization of the emergency use of in vitro diagnostic tests for the detection of SARS-CoV-2 virus and/or diagnosis of COVID-19 infection under section 564(b)(1) of the Act, 21 U.S.C. 360bbb-3(b)(1), unless the authorization is terminated or revoked sooner. [facility] is certified under CLIA-88 as qualified to perform high complexity testing. Testing is performed in the [facility] laboratory located at [address] [place] [address].SARS-CoV-2/Flu/RSV Multiplex Test: Fact sheet for providers: https://www.fda.gov/media/587469/downloadFact sheet for patients: https://www.fda.gov/media/107621/download Covid 19 Resultson 3 SARS-CoV-2 (COVID-19) RNA [...] You may also be contacted by the [facility] to see if any of your close [...] or Naproxen (Aleve) can also be used. Beil-qai-jqgezsa cough and cold medicines can be used according to the instructions on the package. Some dnmg-cuc-tdhflpj medicines also contain acetaminophen. Make sure you [...] water are not available, use alcohol-based hand communication center coordinator. Avoid touching your eyes, nose, and mouth [...] 24 roderick (more content not included)... Normal [facility] Laboratory - Chemistry and C hemistry - challengeon 08-28-2022 Anion gap 4 (BldV) [Moles/Vol] 7 mmol/L below low threshold 10 - [address] [facility] Work Phone: Base excess Calc (BldV) [Moles/Vol] 6.9 mmol/L above high threshold -2.0 - 3.[address] [facility] Work Phone: Calcium.ionized (BldV) [Moles/Vol] 0.98 mmol/L below low threshold See Below [facility] Work Phone: Comment on above: Reference Range: 1.1 0 - 1.33 Chloride (BldV) [Moles/Vol] 89 mmol/L below low threshold 98 - [address] [facility] Work Phone: CO2 (BldV) [Partial pressure] 43 mm[Hg] 41 - 51 [facility] Work Phone: Glucose [Mass/Vol] 118 mg/dL above high threshold 74 - 99 [facility] Work Phone: HCO3 (Bld) [Moles/Vol] 31.3 mmol/L above high threshold See Below [facility] Work Phone: Comment on above: Reference Range: 22. 0 - 26.0 Lactate (BldV) [Moles/Vol] 3.2 mmol/L above high threshold 0.4 - 2.0 [facility] Work Phone: Oxygen (BldV) [Partial pressure] 26 mm[Hg] below low threshold 35 - [address] [facility] Work Phone: Oxyhemoglobin (BldV) [Mass fraction] 26.6 % below low threshold See Below [facility] Work Phone: Comment on above: Reference Range: 45. 0 - 75.0 pH (BldV) 7.47 [pH] above high threshold See Below [facility] Work Phone: Comment on above: Reference Range: 7.3 3 - 7.43 Potassium (BldV) [Moles/Vol] 2.9 mmol/L Critically low 3.5 - 5.3 [facility] Work Phone: Comment on above: RB TO JOSE VIVIEN, 19:40 Sodium (BldV) [Moles/Vol] 124 mmol/L below low threshold 136 - 145 [facility] Work Phone: Albumin BCP dye [Mass/Vol] 4.2 g/dL 3.4 - 5.0 [facility] Work Phone: ALP [Catalytic activity/Vol] 174 U/L above high threshold 33 - 136 [facility] [employer] Work Phone: ALT With P-5'-P [Catalytic activity/Vol] 46 U/L 10 - [address] [facility] Work Phone: Comment on above: Patients treated wit h Sulfasalazine may generate falsely decreased results for ALT. Anion gap [Moles/Vol] 19 mmol/L 10 - 20 [facility] [employer] Work Phone: AST With P-5'-P [Catalytic activity/Vol] 127 U/L above high threshold 9 - [address] [facility] Work Phone: Comment on above: MILD HEMOLYSIS DETEC ROHITH. The result may be falsely elevated due tohemolysis or other interferents. Clinical correlation is recommended.Repeat testing may be considered. Bilirubin [Mass/Vol] 4.9 mg/dL above high threshold 0.0 - 1.[address] [facility] Work Phone: Calcium [Mass/Vol] 8.7 mg/dL 8.6 - 10.3 [facility] [employer] Work Phone: Chloride [Moles/Vol] 79 mmol/L below low threshold 98 - [address] [facility] Work Phone: CO2 [Moles/Vol] 29 mmol/L 21 - [address] [facility] Work Phone: Creatinine [Mass/Vol] 0.59 mg/dL See Below [facility] Work Phone: Comment on above: Reference Range: 0.5 0 - 1.30 Glucose [Mass/Vol] 122 mg/dL above high threshold 74 - 99 [facility] [employer] Work Phone: Natriuretic peptide B (Bld) [Mass/Vol] 111 pg/mL above high threshold 0 - [address] [facility] Work Phone: Comment on above: . <100 pg/mL - Heart failure [id number] pg/mL - Intermediate probability of acute heart. failure exacerbation. Correlate with clinical. context and patient history. >=300 pg/mL - Heart Failure likely. Correlate with clinical. context and patient history.BNP testing is performed using different testing methodology at [facility] than at other [facility]. Direct result comparisons should only be made within the same method. Potassium [Moles/Vol] 3.5 mmol/L 3.5 - 5.[address] [facility] Work Phone: Comment on above: MILD HEMOLYSIS DETEC ROHITH. The result may be falsely elevated due tohemolysis or other interferents. Clinical correlation is recommended.Repeat testing may be considered. Protein [Mass/Vol] 7.4 g/dL 6.4 - 8.2 [facility] Work Phone: Sodium [Moles/Vol] 123 mmol/L below low threshold 136 - [address] [facility] Work Phone: Urea nitrogen [Mass/Vol] 10 mg/dL 6 - [address] [facility] Work Phone: Laboratory - Coagulationon 0 08-28-2022 aPTT Coag (PPP) [Time] 31 s 26 - [address] [facility] Work Phone: Comment on above: THE APTT IS NO LONGE R USED FOR MONITORING UNFRACTIONATED HEPARIN THERAPY. FOR MONITORING HEPARIN THERAPY, USE THE HEPARIN ASSAY. INR Coag (PPP) [Relative time] 0.9 {INR} 0.9 - 1.[address] [facility] Work Phone: PT Coag (PPP) [Time] 10.9 s 9.8 - 13.4 [facility] Work Phone: Laboratory - Hematology and Cell countson 08-28-2022 Hematocrit Est (Bld) [Volume fraction] 34.0 % below low threshold See Below -Univ [facility] Work Phone: Comment on above: Reference Range: 41. 0 - 52.0 Hemoglobin (Bld) [Mass/Vol] 11.4 g/dL below low threshold See Below [facility] Work Phone: Comment on above: Reference Range: 13. 5 - 17.5 MAGNESIUMon 08-28-2022 Magnesium [Mass/Vol] 1.80 mg/dL Normal 1.60 - 2.40 [facility] Comment on above: Performed By: #### M G #### [facility] [address] [place] [address] Magnesium, Serumon Magnesium [Mass/Vol] 1.80 mg/dL See Below MP-U niv [facility] Work Phone: Comment on above: Reference Range: 1.6 0 - 2.40 No Panel Informationon 08-28 Inhaled oxygen concentration 21 % [facility] Work Phone: >90 >[address] [facility] Work Phone: Comment on above: CALCULATIONS OF ROSANA MATED GFR ARE PERFORMED USING THE 2020 CKD-EPI STUDY REFIT EQUATION WITHOUT THE RACE VARIABLE FOR THE IDMS-TRACEABLE CREATININE METHODS.https://jasn.asnjournals.org/content/early/ASN .2774274224 PHOSPHORUSon 08-28-2022 Phosphate [Mass/Vol] 2.0 mg/dL Low 2.5 - 4.9 [facility] Comment on above: Result Comment: The performance [...] considered. Performed By: #### R ENAL #### [facility] [address] [place] [address] Phosphorus, Serumon 08-29-19 Phosphate [Mass/Vol] 2.0 mg/dL below low threshold 2.5 - 4.[address] [facility] Work Phone: Comment on above: The performance [...] SENSITIVITY 10 ng/L Normal 0 - 20 [facility] Comment on above: Result Comment: . Less [...] performed using a different testing methodology at [facility] than at other [facility]. Direct result comparisons should only be made within the same method. Performed By: #### Eric Hernandez #### [facility] [address] [place] [address] Tropinin I.cardiac panel High sensitivity method 10 ng/L 0 - [address] [facility] Work Phone: Comment on above: .Less than [...] performed using a different testing methodology at [facility] than at other [facility]. Direct result comparisons should only be made [...] Arrival: stretcher Mode of Arrival: ambulance Agency: [facility] Agency Name: [place] Arrival From: home Accompanied By: research and evaluation manager CHIEF COMPLAINT CHRISTOS LYONS is a Male [...] obeys commands Best Verbal Response: (V5) oriented Lilburn Score: 15 Patient has homicidal thoughts: no [...] 28-Aug-2022 17:17 by Domenica Soto (EMT-P) Normal [facility] VENOUS FULL PANELon 08-29-19 23 Anion gap [Moles/Vol] 7 mmol/L Low 10 - 25 [facility] Comment on above: Order Comment: RB TO JOSE VIVIEN, 08/28/2022 19:40 Performed By: #### V FPA4 ####[facility] [id number] [place] [address] BASE EXCESS-BLOOD 6.9 mmol/L High -2.0 - 3.0 [facility] Comment on above: Order Comment: RB TO JOSE PUGA, 08/28/2022 19:40 Performed By: #### V FPA4 ####[facility] [place] [address] BICARB, CALCULATED 31.3 mmol/L High 22.0 - 26.0 [facility] Comment on above: Order Comment: RB TO JOSE PUGA, 08/28/2022 19:40 Performed By: #### V FPA4 ####[facility] [place] [id number] CALCIUM,IONIZED 0.98 mmol/L Low 1.10 - 1.33 [facility] Comment on above: Order Comment: RB TO JOSE PUGA, 08/28/2022 19:40 Performed By: #### V FPA4 ####[facility] [place] [id number] Chloride [Moles/Vol] 89 mmol/L Low 98 - 107 [facility] Comment on above: Order Comment: RB TO JOSE PUGA, 08/28/2022 19:40 Performed By: #### V FPA4 ####[facility] [place] [address] FIO2 21 % Normal [facility] Comment on above: Order Comment: RB TO JOSE PUGA, 08/28/2022 19:40 Performed By: #### V FPA4 ####[facility] [place] [id number] Glucose [Mass/Vol] 118 mg/dL High 74 - 99 [facility] Comment on above: Order Comment: RB TO JOSE PUGA, 08/28/2022 19:40 Performed By: #### V FPA4 ####[facility] [place] [id number] Hematocrit (Bld) [Volume fraction] 34.0 % Low 41.0 - 52.0 [facility] Comment on above: Order Comment: RB TO JOSE PUGA, 08/28/2022 19:40 Performed By: #### V FPA4 ####[facility] [place] [address] Hemoglobin (Bld) [Mass/Vol] 11.4 g/dL Low 13.5 - 17.5 [facility] Comment on above: Order Comment: RB TO JOSE PUGA, 08/28/2022 19:40 Performed By: #### V FPA4 ####[facility] [place] [address] Lactate [Moles/Vol] 3.2 mmol/L High 0.4 - 2.0 [facility] Comment on above: Order Comment: RB TO JOSE PUGA, 08/28/2022 19:40 Performed By: #### V FPA4 ####[facility] [place] [address] OXY HGB 26.6 % Low 45.0 - 75.0 [facility] Comment on above: Order Comment: RB TO JOSE PUGA, 08/28/2022 19:40 Performed By: #### V FPA4 ####[facility] [place] [address] Oxygen (Bld) [Partial pressure] 26 mm[Hg] Low 35 - 45 [facility] Comment on above: Order Comment: RB TO JOSE PUGA, 08/28/2022 19:40 Performed By: #### V FPA4 ####[facility] [place] [address] PATIENT TEMPERATURE 37.0 degrees C Normal [facility] Comment on above: Order Comment: RB TO JOSE PUGA, 08/28/2022 19:40 Result Comment: NOTE : PATIENT RESULTS ARE NOT CORRECTED FOR TEMPERATURE. Performed By: #### V FPA4 ####[facility] [place] [address] PCO2 43 mmHg Normal 41 - 51 [facility] Comment on above: Order Comment: RB TO JOSE PUGA, 08/28/2022 19:40 Performed By: #### V FPA4 ####[facility] [place] [address] pH (Bld) 7.47 [pH] High 7.33 - 7.43 [facility] Comment on above: Order Comment: RB TO JOSE PUGA, 08/28/2022 19:40 Performed By: #### V FPA4 ####[facility] [id number] [place] [address] Potassium [Moles/Vol] 2.9 mmol/L Critically low 3.5 - 5.3 [facility] Comment on above: Order Comment: RB TO JOSE PUGA, 08/28/2022 19:40 Result Comment: RB T O JOSE PUGA, 08/28/2022 19:40 Performed By: #### V FPA4 ####[facility] [id number] [place] [address] SO2 27 % Low 45 - 75 [facility] Comment on above: Order Comment: RB TO JOSE PUGA, 08/28/2022 19:40 Performed By: #### V FPA4 ####[facility] [id number] [place] [address] Sodium [Moles/Vol] 124 mmol/L Low 136 - 145 [facility] Comment on above: Order Comment: RB TO JOSE PUGA, 08/28/2022 19:40 Performed By: #### V FPA4 ####[facility] [id number] [place] [address] Vital signson 08-28-2022 Oxygen saturation in Venous blood 27 % below low threshold 45 - [address] [facility] Work Phone: Office Visit (Internal Medic ine)on [...] Time due to the restrictions of the COVID-. All issues were discussed and addressed but [...] due to the restrictions of the COVID-19 . All issues were discussed and addressed but [...] stroke and (more content not included)... Normal [employer] Vital Signs Date Time Vital Sign Value Performing Clinician Facility 12-30-2022 07:56-0400 Body height 182.9 cm [facility] Work Phone: [facility] 12-30-2022 07:56-0400 Body mass index (BMI) [Ratio] 29.02 kg/m2 Kalyn Quinonez MIGRATORY WORKER - TUBING MACHINE TENDER Work Phone: [facility] 12-30-2022 07:56-0400 Body temperature 97.9 [degF] Kalyn Garcia MIGRATORY WORKER - TUBING MACHINE TENDER Work Phone: [facility] 12-30-2022 07:56-0400 Body weight 97.07 kg Kalyn Garcia MIGRATORY WORKER - TUBING MACHINE TENDER Work Phone: [facility] 12-30-2022 07:56-0400 Diastolic blood pressure 72 mm[Hg] Kalyn [employer] MIGRATORY WORKER - TUBING MACHINE TENDER Work Phone: [facility] 12-30-2022 07:56-0400 Heart rate 68 /min Kalyn Quinonez MIGRATORY WORKER - TUBING MACHINE TENDER Work Phone: [facility] 12-30-2022 07:56-0400 Systolic blood pressure 122 mm[Hg] Kalyn [employer] MIGRATORY WORKER - TUBING MACHINE TENDER Work Phone: [facility] 08-29-2022 03:23-0400 Body temperature 37.0 {degrees_C} Brian Jean Work Phone: [facility] Work Phone: Comment on above: NOTE: PATIENT RESULTS ARE NOT CORRECTED FOR TEMPERATURE. 08-28-2022 19:20-0400 Body temperature 37.0 {degrees_C} Brian Jean Work Phone: [facility] Work Phone: Comment on above: NOTE: PATIENT RESULTS ARE NOT CORRECTED FOR TEMPERATURE. Encounters Encounter Date Encounter Type Care Provider Facility Start: 11-06-2024 ambulatory Henry REID Facil ity:[facility] Start: 10-26-2024 ambulatory Henry REID Facil ity:[facility] Start: 08-07-2024 End: 08-07-2024 ambulatory Henry REID Facility:[facility] Start: 06-05-2024 End: 06-29-2024 Telephone encounter Barron Giraldo MD Work Phone: [facility] Clinical Communication Comment on above: Cancelled Appointmen t Start: 06-05-2024 ambulatory Henry REID Facil ity:[facility] Start: 05-24-2024 End: 05-24-2024 Telephone encounter Barron Giraldo MD Work Phone: [facility] Start: 05-10-2024 ambulatory Henry REID Facil ity:[facility] Start: 04-12-2024 End: 04-12-2024 ambulatory Henry REID Facility:[facility] Start: 02-14-2024 End: 02-14-2024 ambulatory Henry REID Facility:[facility] Start: 02-09-2024 End: 02-09-2024 ambulatory Henry REID Facility:[facility] Start: 02-07-2024 End: 02-07-2024 ambulatory Henry REID Facility:[facility] Start: 06-09-2023 End: 06-09-2023 ambulatory [facility] Work Phone: Start: 06-09-2023 End: 06-09-2023 Departed Referred [facility] [address] Start: 05-10-2023 End: 05-10-2023 ambulatory [facility] Work Phone: Start: 05-10-2023 End: 05-10-2023 Departed Referred [facility] [address] Start: 04-29-2023 Telephone encounter Kalyn hart MIGRATORY WORKER - TUBING MACHINE TENDER Work Phone: [facility] Comment on above: Scheduling Start: 03-11-2023 End: 03-11-2023 ambulatory [facility] Work Phone: Start: 03-11-2023 End: 03-11-2023 Departed [facility]erred [facility] [address] Start: 01-17-2023 End: 01-17-2023 Departed [facility]erred [facility] [address] Start: 01-17-2023 Registered Referred [facility] [address] Start: 01-13-2023 End: 01-13-2023 ambulatory [facility] Work Phone: Start: 01-13-2023 End: 01-13-2023 Departed [facility]erred [facility] [address] Start: 01-13-2023 [facility] [address] Start: 01-05-2023 End: 01-05-2023 ambulatory [facility] Work Phone: Start: 01-05-2023 End: 01-05-2023 [facility] Start: 01-05-2023 [facility] Start: 01-03-2023 End: 01-03-2023 ambulatory [facility] Work Phone: Start: 01-03-2023 End: 01-03-2023 Departed Referred [facility] [address] Start: 12-30-2022 End: 12-30-2022 Office outpatient new 45 minutes Kalyn Hurtado CNP Work Phone: [facility] Gastroenterology Comment on above: Elevated LFTs (Prima ry Dx); Abnormal CT of liver; History of alcohol abuse; Incontinence of feces, unspecified fecal incontinence type Start: 10-25-2022 End: 10-25-2022 Office outpatient new 45 minutes Barron Giraldo MD Work Phone: [facility] Comment on above: Elevated PSA (Primar y Dx); BPH with urinary obstruction Start: 10-18-2022 End: 10-18-2022 ambulatory [facility] Work Phone: Start: 10-18-2022 End: 10-18-2022 [facility] Start: 10-01-2022 End: 10-01-2022 ambulatory [facility] Work Phone: Start: 10-01-2022 End: 10-01-2022 Departed Referred [facility] 100 Start: 09-20-2022 Registered Referred [facility] 100 Start: 09-15-2022 Registered Referred [facility] 100 Start: 09-13-2022 Registered [facility]erred [facility] 100 Start: 09-07-2022 Chart Update Brian Jean Work Phone: [facility] Work Phone: Start: 09-06-2022 Registered [facility]erred [facility] [address] Start: 08-29-2022 End: 09-04-2022 Evaluation and management of inpatient Dr. Polo Sanchez Facility:[facility] Procedures Date Procedure Procedure Detail Performing Clinician [...] procedure 06/11/2024 11:50 AM EST Office Visit [facility] [address] [place] [address] Barron Giraldo MD [address] [place] [address] [facility] Start: 05-09-2024 Medicare Advantage Annual Wellness Visit Medicare Advantage Annual Wellness Visit [facility] Start: 01-08-2024 COVID-19 Vaccine ( season) COVID-19 Vaccine ( season) [facility] Start: 01-08-2024 Influenza vaccination Influenza Vaccine (#1) [facility] Start: 05-16-2023 End: 05-16-2023 Patient encounter procedure 05/16/2023 9:30 AM EST Office Visit [facility] [email or web address] [facility] [address] [place] [id number] Barron Giraldo MD [address] [place] [address] [facility] Start: 05-09-2023 Medicare Advantage Annual Wellness Visit Medicare [facility] Annual Wellness Visit [facility] Start: 04-26-2023 End: 10-26-2023 PSA Total PSA Total Lab Routine Elevated PSA Expected: 04/26/2023 (Approximate), Expires: 10/26/2023 [facility] Work Phone: Comment on above: Expected: 04/26/2023 (Approximate), Expi res: 10/26/2023 Start: 01-07-2023 COVID-19 Vaccine ( season) COVID-19 Vaccine () [facility] Start: 01-07-2023 Influenza vaccination [facility] Start: 12-30-2022 End: 12-31-2023 Anti-smooth muscle antibody titer Anti-smooth muscle antibody titer Lab Routine Elevated LFTs Expected: 12/30/2022 (Approximate), Expires: 12/31/2023 [facility] Comment on above: Expected: 12/30/2022 (Approximate), Expi res: 12/31/2023 Start: 12-30-2022 End: 12-31-2023 Antimitochondrial antibody Antimitochondrial antibody Lab Routine Elevated LFTs Expected: 12/30/2022 (Approximate), Expires: 12/31/2023 [facility] Comment on above: Expected: 12/30/2022 (Approximate), Expi res: 12/31/2023 Start: 12-30-2022 End: 12-31-2023 CBC panel - Blood by Automated count CBC Lab Routine Elevated LFTs Abnormal CT of liver Expected: 12/30/2022 (Approximate), Expires: 12/31/2023 [facility] Comment on above: Expected: 12/30/2022 (Approximate), Expi res: 12/31/2023 Start: 12-30-2022 End: 12-31-2023 Comprehensive metabolic 1998 panel - Serum or Plasma Comprehensive metabolic panel Lab Routine Elevated LFTs Expected: 12/30/2022 (Approximate), Expires: 12/31/2023 [facility] Comment on above: Expected: 12/30/2022 (Approximate), Expi res: 12/31/2023 Start: 12-30-2022 End: 12-31-2023 Creatinine [Mass/volume] in Serum or Plasma Creatinine, Serum Lab Routine Elevated LFTs Abnormal CT of liver Expected: 12/30/2022 (Approximate), Expires: 12/31/2023 [facility] Comment on above: Expected: 12/30/2022 (Approximate), Expi res: 12/31/2023 Start: 12-30-2022 End: 12-31-2023 Ferritin [Mass/volume] in Serum or Plasma Ferritin Lab Routine Elevated LFTs Expected: 12/30/2022 (Approximate), Expires: 12/31/2023 [facility] Comment on above: Expected: 12/30/2022 (Approximate), Expi res: 12/31/2023 Start: 12-30-2022 End: 12-31-2023 Hepatitis 1996 panel - Serum Hepatitis panel, acute Lab Routine Elevated LFTs Expected: 12/30/2022 (Approximate), Expires: 12/31/2023 [facility] Comment on above: Expected: 12/30/2022 (Approximate), Expi res: 12/31/2023 Start: 12-30-2022 End: 12-31-2023 Iron and Iron binding capacity panel - Serum or Plasma Iron and TIBC Lab Routine Elevated LFTs Expected: 12/30/2022 (Approximate), Expires: 12/31/2023 [facility] Comment on above: Expected: 12/30/2022 (Approximate), Expi res: 12/31/2023 Start: 12-30-2022 End: 12-31-2023 Liver-Kidney Microsome 1 Ab Liver-Kidney Microsome 1 Ab Lab Routine Elevated LFTs Expected: 12/30/2022 (Approximate), Expires: 12/31/2023 [facility] Comment on above: Expected: 12/30/2022 (Approximate), Expi res: 12/31/2023 Start: 12-30-2022 End: 12-31-2023 MR Abdomen WO and W contrast IV MR abdomen w and wo contrast Imaging Routine Elevated LFTs Abnormal CT of liver Expected: 12/30/2022, Expires: 12/31/2023 [facility] Work Phone: Comment on above: Expected: 12/30/2022, Expires: Start: 12-30-2022 End: 12-31-2023 Nuclear Ab [Titer] in Serum by Immunofluorescence BRANDON Lab Routine Elevated LFTs Expected: 12/30/2022 (Approximate), Expires: 12/31/2023 [facility] Comment on above: Expected: 12/30/2022 (Approximate), Expi res: 12/31/2023 Start: 12-30-2022 End: 12-31-2023 Pancreatic elastase, fecal Pancreatic elastase, fecal Lab Routine History of alcohol abuse Incontinence of feces, unspecified fecal incontinence type Expected: 12/30/2022 (Approximate), Expires: 12/31/2023 [facility] Comment on above: Expected: 12/30/2022 (Approximate), Expi res: 12/31/2023 Start: 12-30-2022 End: 12-31-2023 Prothrombin time (PT) in Blood by Coagulation assay Protime-INR Lab Routine Elevated LFTs Expected: 12/30/2022 (Approximate), Expires: 12/31/2023 [facility] Comment on above: Expected: 12/30/2022 (Approximate), Expi res: 12/31/2023 Start: 11-18-2022 End: 11-18-2022 Patient encounter procedure 11/18/2022 9:20 AM EDT Office Visit [facility] [address] [place] [address] Kalyn Quinonez APRN - [address] [address] [facility] Start: 11-01-2022 NPV, Provider: Malou Bowen, Status: Pen, Time: 8:00 AM NPV, Provider: Malou Bowen, Status: Pen, Time: 8:00 AM [facility] Work Phone: Start: 08-18-2019 RSV Immunization for Adults (1 - 1-dose 75+ series) RSV Immunization for Adults (1 - 1-dose 75+ series) [facility] Start: 05-21-2014 DTaP/Tdap/Td Vaccines (1 - Tdap) DTaP/Tdap/Td Vaccines (1 - Tdap) [facility] Start: 2009 Pneumococcal Vaccine: 65+ Years (1 - PCV) Pneumococcal Vaccine: 65+ Years (1 - PCV) [facility] Start: 2009 Pneumococcal Vaccine: 65+ Years (1 of 1 - PCV) Pneumococcal Vaccine: 65+ Years (1 of 1 - PCV) [facility] Start: 2004 Hepatitis B Vaccines (1 of 3 - Risk 3-dose series) Hepatitis B Vaccines (1 of 3 - Risk 3-dose series) [facility] Start: 2004 RSV Immunization aged 60 or older (1 - 1-dose 60+ series) RSV Immunization aged 60 or older (1 - 1-dose 60+ series) [facility] Start: 1994 Zoster Vaccines (1 of 2) Zoster Vaccines (1 of 2) [facility] Start: 08-18-1963 Hepatitis A Vaccines (1 of 2 - Risk 2-dose series) Hepatitis A Vaccines (1 of 2 - Risk 2-dose series) [facility] Start: 08-18-1963 Pneumococcal Vaccine: 50+ Years (1 of 2 - PCV) Pneumococcal Vaccine: 50+ Years (1 of 2 - PCV) [facility] Start: 1962 Diabetes: Estimated Glomerular Filtration Rate for Kidney Health Diabetes: Estimated Glomerular Filtration Rate for Kidney Health [facility] Start: 1962 Diabetes: Urine Albumin-Creatinine Ratio for Kidney Health Diabetes: Urine Albumin-Creatinine Ratio for Kidney Health [facility] Start: 1962 Hepatitis C screening Hepatitis C Screening [facility] Start: 1956 Depression Screening Depression Screening [facility] Start: 02-16-1945 COVID-19 Vaccine (#1) COVID-19 Vaccine (#1) [facility] Start: 1944 Thyroid stimulating hormone measurement TSH Level [facility] Payers Date Payer Category Payer Unknown [id number] 2024 Medicaid [id number] 2024 Self-pay 2022 Medicare [employer] MED[employer]ARE UHC MEDICARE ADVANTAGE [id number] 2022-Present [id number] [place] [address] Medicare [facility] [place] [place] [id number] 2022 Medicare [employer]IC[employer] ADV ANTAGE [facility] [place] [place] Address: [address] [place] [address] [id number] 1944 Unknown [id number] Medicare MEDICARE PART A B [id number] Private Health Insurance [id number] Unknown Unknown [id number] Unknown [id number] 462 Unknown [id number] 462 Unknown [id number] 462 Unknown [id number] 462 Unknown [id number] 462 Unknown [id number] 462 Unknown [id number] 462 Unknown [id number] 462 Social History Date Type Detail Facility Start: 10-25-2022 End: 12-30-2022 Self-employed Self-employed [facility] Work Phone: Start: 1945 Sex Assigned At Male [facility] Start: 10-25-2022 Tobacco smoking stat [facility] Never smoked tobacco [facility] Start: 10-25-2022 Tobacco use and exposure Smokeless tobacco non-user [facility] Start: 10-25-2022 End: 12-30-2022 Alcohol intake Ex-drinker (finding) [facility] Start: 1945 Sex Assigned At Not on file [facility] Start: 10-25-2022 End: 12-30-2022 Gender identity Not on file [facility] Start: 10-15-2022 End: 12-30-2022 Exposure to SARS-CoV-2 (event) Not sure [facility] Start: 09-22-2022 Sex Male (finding) [facility] Uriel gallegos Clinical Notes 08-29-2022 to 06-05-2024 Telephone Encounter - Serene Ron - 06/05/2024 3:28 PM ESTTelephone Encounter - Serene Ron - 06/05/2024 3:28 PM ESTTelephone Encounter - Shana Fajardo - 05/24/2024 10:28 AM ESTAttachments Note Date & Type Note Facility 06-05-2024 Telephone encounter Note Name of Caller: So ([facility]) Contact Reason for Appointment: oS called instating Pt wanted to cancel his 06/11 appt and does not want to r/s at this time. Please be advised Office Name: [facility] Urology [facility] 06-05-2024 Miscellaneous Notes Name of Caller: So ([facility]) Contact Reason for Appointment: So called instating Pt wanted to cancel his 06/11 appt and does not want to r/s at this time. Please be advised Office Name: [facility] Urology documented in this encounter [facility] 05-24-2024 Telephone encounter Note Radha from [facility] in [place] called to reschedule the patient's 05/16/[address] Giraldo. Patient is not ambulatory and will be arriving on cot. Appt RS to 06/11/24. [facility] 05-24-2024 Miscellaneous Notes Radha from [facility] in [place] called to reschedule the patient's 05/16/[address] Giraldo. Patient is not ambulatory and will be arriving on cot. Appt RS to 06/11/24. documented in this encounter [facility] 05-03-2023 Telephone encounter Note Noted patient electing to not proceed with MRI abdomen. Two non-specific liver lesions seen on imaging at outside facility 08/2022. MRI recommended for further evaluation/characterization. Patient did not complete any of the additional lab work ordered at GI visit, either. Please send FYI to PCP. Thank you! [facility] 05-03-2023 Miscellaneous Notes Noted patient [...] call back JR documented in this encounter [facility] 04-29-2023 Telephone encounter Note Please advise-MRI ordered in December [facility] 04-29-2023 Telephone encounter Note Pt did not wish to have MRI scheduled, pt brother to call back JR [facility] 12-30-2022 History of Present illness Narrative Images from the original note were not included. [facility] [address] [facility] [address] Dept: [phone] Dept Loc: [phone] Visit type: New Reason for Visit: New [...] Gruber, re: fatty liver. Patient resides in [facility]-has been living there since August 2022 [...] Bili 1.40 . 08/28/2022 CT Chest/Abdomen/Pelvis also completed-"steatotic liver, concerns for acute steatohepatitis. Two non-specific lesions, one 10 mm and one 18 mm-MRI recommended." EGD completed during admission-no varices. Patient notes fecal incontinence-ongoing since hospitalization in August 2022. Bowels are moving daily to every couple days. Stool consistency is "like peanut butter". Denies hematochezia and melena. States he does [...] Normal appearance. HENT: Head: Normocephalic. Ears: Comments: [place] Eyes: General: No scleral icterus. Cardiovascular: Rate [...] 9:00 AM 12/30/22 documented in this encounter [facility] 12-30-2022 Instructions FRANCHESCA Palmer CNP - 12/30/2022 8:00 AM EDT --Please call office with any questions or concerns! [phone] --Obtain additional lab work for further evaluation of the symptoms. --Schedule MRI liver --Please see handout provided regarding additional recommendations for the symptoms including when to seek emergency care or further treatment. --Follow-up with PCP, and in GI clinic in about 3 months following the above evaluation and recommendations. The following attachments cannot be sent through Care Everywhere.Fecal Incontinence ([place])documented in this encounter [facility] 10-25-2022 History of Present illness [...] deconditioning. In wheelchair, still at rehab at [facility] in [place]. He normally lives in [place]. Has psa 5.57 Psa in 2019 9.36 [...] 10/25/22 11:38 AM documented in this encounter [facility] 09-04-2022 Note Send Summary: Discharge [...] Condition at Discharge: Satisfactory Disposition at Discharge: [facility]dc Facility (SNF) Vital Signs: T PRBPMAPSpO2 Value36.48921060/6695% Date/Time09/04 8: 8: 8: 8: 8:21 Range(36.2C [...] Surgical Pathology Drawn at 02-Sep-2022 14:40:00 Cytology-Non JAVA J2EE LEAD Drawn at 02-Sep-2022 00:00:00 Venous Full Panel Drawn at 28-Aug-2022 19:12:00 Radiology Results - Pending: None Discharge Instructions: Activity: activity as tolerated. May shower.. Nutrition/Diet: low sodium Fluid Restriction: 1.5L Labs: Lab Test(s): CBC, Comprehensive Metabolic Panel Date To Be Drawn: 09/06/2022 Fax Results To: Dr Maynard, #[phone] Rehab Services: Occupational Therapy Orders: Eval and Treat ([facility]) Physical Therapy Orders: Eval and Treat ([facility]) Care Recommendation: I recommend that INPATIENT care is required at:: Skilled Follow Up Appointments: Follow-Up Appointment 01: Physician/Dept/Service: Dr. Malou Bowen - Pulmonary Scheduled Date/Time: (more content not included)... [facility] 08-29-2022 Note History of Present I llness: HPI: CHRISTOS LYONS is a 77 year old Male with a past medical history of hypertension, hyperlipidemia, anemia, alcohol use disorder, BPH, anxiety, hypothyroidism, gouty arthritis who presented to [facility] complaining of worsening dysphagia to [...] are negative Objective: Objective Information: T PRBPMAPSpO2 Value36.89581221/6697% Date/Time08/28 23: 23: 23: 23: 23:09 Range(36.2C [...] 2 Hours PRN (more content not included)... [facility] Evaluation note [facility]: Evaluation note Diagnosis Elevated PSA- Primary Elevated prostate specific antigen (PSA) BPH with urinary obstruction Hypertrophy of prostate with urinary obstruction and other lower urinary tract symptoms (LUTS) documented in this encounter [facility]* Diagnosis Elevated LFTs- Primary Other abnormal blood chemistry Abnormal CT of liver History of alcohol abuse Nondependent alcohol abuse, in remission Incontinence of feces, unspecified fecal incontinence type documented in this encounter [facility] Summary Purpose Family History [...] and Reason for Visit Chief Complaint LABWORK [facility] LABWORK LABWORK LAB WORK LABWORK Chief Complaint LABWORK [facility] LABWORK LABWORK LAB WORK LABWORK [facility] LABWORK Chief Complaint LABWORK FPC LABWORK FPC LAB WORK FPC LAB WORK FPC LAB WORK Chief Complaint FPC LAB WOR K FPC LAB WORK FPC LAB WORK FPC LABWORK LABWORK Chief Complaint LABWORK LABWORK Chief Complaint LABWORK LABWORK LABWORK Reason for Referral Specialty Diagnoses / Procedures Referred By Christina schaeffer Referred To Contact Radiology Diagnoses Elevated LFTs Abnormal CT of liver Procedures MR abdomen w and wo contrast Kalyn Quinonez, MIGRATORY WORKER - TUBING MACHINE TENDER [address] [facility] [address] [place] [address] Referral ID Status Reason Start Date Expiration Date V isits Requested Visits Authorized [id number] Pending Review 12/30/2022 06/28/2023 1 1 Additional Source Comments (unrecognized sect ion and content) No Status Records FoundNo Status Records FoundNo Status Records FoundNo Status Records FoundNo Status Records Found INFORMATION SOURCE (unrecogn ized section and content) DATE CREATED AUTHOR 02/07/2021 [employer] DATE CREATED AUTHOR AUTHOR'S ORGANIZ ATION 09/07/2022 [facility] DATE CREATED AUTHOR AUTHOR'S ORGANIZ ATION 09/08/2022 [facility] DATE CREATED AUTHOR AUTHOR'S ORGANIZ ATION 06/07/2024 [facility] DATE CREATED AUTHOR AUTHOR'S ORGANIZ ATION [facility]20[facility] Care Teams (unrecognized sec tion and content) Team Status: Inactive Member Role Status Dates Henry REID Attending Provider Active Team Status: Inactive Member Role Status Dates Henry REID Attending Provider, Referring Provid er Active Team Status: Active Member Role Status Dates Henry REID Attending Provider Active Team Status: Active Member Role Status Dates Henry REID Attending Provider, Referring Provid er Active Computed Tomography Scanner Operator Relationship Specialty Start Date End Date Henry Gruber [address] [place] [address] [address] [place] [address] PCP - General Family Medicine 09/22/22 Barron Giraldo MD [address] [facility] [address] [place] [address] Surgeon Urology 10/25/22 Computed Tomography Scanner Operator Relationship Specialty Start Date End Date Henry Gruber [address] [place] [address] [address] [place] [address] PCP - General Family Medicine 09/22/22 Barron Giraldo MD [address] [address] Surgeon Urology 10/25/22 Computed Tomography Scanner Operator Relationship Specialty Start Date End Date Henry Gruber [address] [place] [address] [address] [place] [address] PCP - General Family Medicine 09/22/22 [place] [address] Surgeon Urology 10/25/22 Computed Tomography Scanner Operator Relationship Specialty Start Date End Date Henry Gruber MD [address] [place] [address] [address] [place] [address] PCP - General Family Medicine 09/22/22 [place] [address] Surgeon Urology 10/25/22 Computed Tomography Scanner Operator Relationship Specialty Start Date End Date Henry Gruber MD [address] [place] [address] [address] [place] [address] PCP - General Family Medicine 09/22/22 Barron Giraldo MD [address] [place] [address] Surgeon Urology 10/25/22 Goals (unrecognized section and [...] Specialty Diagnoses / Procedures Referred By Christina schaeffer Referred To Contact Gastroenterology Diagnoses GI consult for fatty liver Procedures Consult Henry rGuber [address] [place] [address] [facility] [address] [place] [address] Referral ID Status Reason Start Date Expiration Date V isits Requested Visits Authorized [id number] Pending Review 10/01/2022 10/01/2023 1 1 Reason [...] BE BASED ON THE PRIMARY CLINICAL RECORDS. [facility] [facility]. provides no warranty or guarantee of the accuracy or completeness of information in this document.
[2024-11-29 10:09] LABS: Vitamin D,25 Hydroxy 34.1 ng/mL (30-100)
== END ==
LOC: OLS.ACW100 05:00
PROVIDERS: Visit Provider Family Medicine
DX: C34.90 Malignant neoplasm of unspecified part of unspecified bronchus or lung (principal); R53.83 Other fatigue; R53.81 Other malaise
CPT/HCPCS: 36415; 82306

== ENCOUNTER → 2025-02-15 | Outpatient (REF) | payer MEDICARE, MEDICAID, SELFPAY ==
[2025-02-15 06:45] LABS: Hematocrit 39.1 % (40-54); Hemoglobin 12.5 g/dL (13.0-16.5); Mean Corp Hgb Conc 32.0 g/dL (32-36); Mean Corpuscular Volume 88.9 fL (80-94); Mean Platelet Vol. 10.7 fl (6.2-12.0); Platelet Count 340 K/mm3 (150-450); RBC Distribution Width CV 15.0 % (11.6-14.6); RBC Distribution Width SD 48.9 fl (35.1-43.9); Red Blood Count 4.40 M/mm3 (4.6-6.2); White Blood Count 12.0 K/mm3 (4.4-11.0)
[2025-02-15 07:02] LABS: Anion Gap 8 (5-15); BUN 8 mg/dL (4-19); BUN/Creat Ratio 18.1 RATIO (10-20); Calcium,Total 8.8 mg/dL (7.6-11.0); Carbon Dioxide 27.0 mmol/L (21.0-32.0); Chloride 104 mmol/L (98-108); Glucose 105 mg/dL (70-99); Potassium 3.9 mmol/L (3.3-5.1)
== END ==
LOC: OLS.ACW200 05:00
PROVIDERS: Visit Provider Family Medicine
DX: C34.90 Malignant neoplasm of unspecified part of unspecified bronchus or lung (principal); R13.10 Dysphagia, unspecified; R53.83 Other fatigue; M62.81 Muscle weakness (generalized)
CPT/HCPCS: 36415; 80048; 85027

== ENCOUNTER → 2025-05-08 05:00 | Outpatient (REF) | payer MEDICARE, MEDICAID, SELFPAY ==
--- OUTSIDE RECORDS SUMMARY | 2025-05-08 04:14 | XMS RPT_ITS | CCD ---
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 Polo Sanchez Admitting Jh Sal, Dr. Maynard Attending Andrew Nationuja Referring Unavailable Dr. Brian Jean Primary Care Henry Razo Primary Care Provider Barron Giraldo MD Unavailable [phone] Henry Gruber MD Primary Care Provider [phone] Barron Giraldo MD Unavailable [phone] Henry Mathis Attending Provider Henry Tena Referring Provider UnavailHenry Zamudio Attending Unavailable Henry Mathis Referring Unavailable Henry Mathis Attending Unavailable Allyn REID, Henry Attending Unavailable Allyn REID, Henry Attending Unavailable Allyn REID, Henry Attending Unavailable Henry Mathis Referring Unavailable Henry Mathis Attending Unavailable Allyn REID, Henry Attending Unavailable Allyn REID, Henry Referring Unavailable Henry Mathis Attending Unavailable Allergies Allergy Classification Reported Allergen(s) Allergy Type Date of Onset Reaction(s) Facility (1 source) Col[facility]icine; Translations: [[facility] CAPS] Drug Allergy Rash -Formerly [facility] Kun quintero Work Phone: (5 sources) [facility] Drug Allergy 10-25-2022 [facility] Medications Current Medications Medication Drug Class(es) Dates [...] EC tablet 10/01/2022 Active polyethylene glycol 3350 [id number] mg powder for oral solution (4 sources) [...] part of unspecified bronchus or lung] Onset: 12-07-2024 Chronic Congestive heart failure; nonhypertensive (1 source) Chronic right heart failure; Translations: [Chronic right heart failure] Onset: 12-07-2024 Chronic Deficiency and other anemia (1 source) Anemia; Translations: [Anemia, unspecified] Episodic Diabetes mellitus with complications (1 source) Type 2 diabetes mellitus with hyperglycemia; Translations: [Type 2 diabetes mellitus with hyperglycemia] Onset: 12-07-2024 Chronic Diabetes mellitus without complication (1 source) Hyperglycemia; Translations: [Impaired fasting glucose] Episodic Gout and other crystal arthropathies (8 sources) Primary gout; Translations: [Gouty arthropathy, unspecified] Onset: 12-07-2024 Resolved: 10-16-2016 Chronic Hyperplasia of prostate (4 sources) Prostate nodule; Translations: [Nodular prostate without urinary obstruction] Onset: 07-25-2024 10-25-2022 Chronic Malaise and fatigue (7 sources) Weakness; Translations: [Other fatigue] Onset: 08-29-2022 Episodic Osteoarthritis (3 sources) Osteoarthritis [...] 07-25-2024 Episodic Other gastrointestinal disorders (1 source) Incontinence of feces; Translations: [Full incontinence of feces] 12-30-2022 Episodic Other gastrointestinal disorders (2 sources) Dysphagia, unspecified; Translations: [Dysphagia, unspecified] Onset: 12-07-2024 Episodic Other liver diseases (1 source) Fatty (change of) liver, not elsewhere classified; Translations: [Fatty (change of) liver, not elsewhere classified] Onset: 12-07-2024 Chronic Other non-traumatic joint disorders (2 sources) [...] sources) Hypothyroidism; Translations: [Unspecified acquired hypothyroidism] Onset: 12-07-2024 Chronic Past or Other Problems Problem Classification [...] Resolved: 10-16-2016 Episodic Other nervous system disorders (1 source) Unspecified lack of coordination; Translations: [Unspecified lack of coordination] Onset: 07-25-2024 Episodic Other non-traumatic joint disorders (2 sources) [...] Test Name Value Interpretation Reference Range Facility Anion gap in Serum or Plasma Ordered By: Henry Gruber on 11-06-2024 Anion gap [Moles/Vol] 12 mmol/L 09-20 [facility] BUN/creatinine ratioOrdered By: Henry Gruber on 11-06-2024 Urea nitrogen/Creatinine [Mass ratio] 8.3 mg/mg Low 02-25 [facility] Comment on above: Previous reported re sult: 9.3 RATIOEdited by: ENMANUEL on 11/06/24:1315 AMENDED REPORT 11/06/24 1315 BUN/CRE previously reported as: 9.3 L RATIO Bilirubin, totalOrdered By: Henry Gruber on 11-06-2024 Bilirubin [Mass/Vol] 0.62 mg/dL 0.00-1.30 [facility] Calculated very low density lipoprotein (VLDL) cholesterol measurementOrdered By: Henry Gruber on 11-06-2024 Calculated very low density lipoprotein (VLDL) cholesterol measurement 34 mg/dL 5-40 [facility] Carbon dioxide, total [Moles /volume] in Central venous bloodOrdered By: Henry Gruber on 11-06-2024 CO2 [Moles/Vol] 25.1 mmol/L 21.0-32.0 [facility] Comment on above: Previous reported re sult: 25.5 mmol/LEdited by: ENMANUEL on 11/06/24:1315 AMENDED REPORT 11/06/24 1315 CO2 previously reported as: 25.5 mmol/L Chloride assayOrdered By: Reta Gruber on 11-06-2024 Chloride [Moles/Vol] 100 mmol/L 98-108 [facility] Erythrocyte distribution wid th ratioOrdered By: Henry Gruber on 11-06-2024 Erythrocyte distribution width (RBC) [Ratio] 14.3 % 11.6-14.6 [facility] Erythrocyte distribution wid th standard deviationOrdered By: Henry Gruber on 11-06-2024 Erythrocyte distribution width (RBC) [Ratio] 46.3 fl High 35.1-43.9 [facility] Glomerular filtration rate ( GFR) estimation/1.73 sq m using serum, plasma, or whole bOrdered By: Henry Gruber on 11-06-2024 GFR/1.73 sq M.predicted among non-blacks MDRD (S/P/Bld) [Vol rate/Area] 102 mL/min/{1.73_m2} >60 [facility] Comment on above: mL/min/1.73m2 CKD-EP I Creatinine Equation (2020) Hematocrit Auto (Bld) [Volum e fraction]Ordered By: Henry Gruber on 11-06-2024 Hematocrit (Bld) [Volume fraction] 38.4 % Low 40-54 [facility] Hemoglobin A1c percentageOrd ered By: Henry Gruber on 11-06-2024 HbA1c (Bld) [Mass fraction] 8.3 % High <5.7 [facility] Comment on above: Normal < 5.7 % Predi abetic 5.7 - 6.4 % Diabetic >or= 6.5 % Please note range changes. Hemoglobin measurementOrdere d By: Henry Gruber on 11-06-2024 Hemoglobin (Bld) [Mass/Vol] 12.6 g/dL Low 13.0-16.5 [facility] LDL calc ser/plasOrdered By: Henry Gruber on 11-06-2024 Cholesterol in LDL [Mass/Vol] 43 mg/dL [facility] Comment on above: Okaexnsdgi=159-880 m g/dL & Higher Xszu=079 mg/dL or greater Laboratory - Chemistry and C hemistry - challengeOrdered By: Henry Gruber on 11-06-2024 AST [Catalytic activity/Vol] 28 U/L <38 [facility] Comment on above: Previous reported re sult: 25 U/LEdited by: ENMANUEL on 11/06/24:1315 AMENDED REPORT 11/06/24 1315 AST previously reported as: 25 U/L MCV (mean corpuscular volume ) determinationOrdered By: Henry Gruber on 11-06-2024 MCV (RBC) [Entitic vol] 89.3 fL 80-94 [facility] Mean corpuscular hemoglobin (MCH) determinationOrdered By: Henry Gruber on 11-06-2024 MCH (RBC) [Entitic mass] 29.3 pg 27.0-32.0 [facility] Mean corpuscular hemoglobin concentration (MCHC) determinationOrdered By: Henry Gruber on 11-06-2024 MCHC (RBC) [Mass/Vol] 32.8 g/dL 32-36 [facility] Mean platelet volume determi nationOrdered By: Henry Gruber on 11-06-2024 Platelet mean volume (Bld) [Entitic vol] 11.3 fL 6.2-12.0 [facility] Platelet countOrdered By: Reta Gruber on 11-06-2024 Platelets (Bld) [#/Vol] 350 10*3/uL 150-450 [facility] Potassium measurement (mass/ volume)Ordered By: Henry Gruber on 11-06-2024 Potassium (Unsp spec) [Mass/Vol] 3.9 mmol/L 3.3-5.1 [facility] RBC Auto (Bld) [#/Vol]Ordere d By: Henry Gruber on 11-06-2024 RBC (Bld) [#/Vol] 4.30 10*6/uL Low 4.6-6.[address] [facility] Screening total cholesterol/ high density lipoprotein (HDL) cholesterol ratioOrdered By: Henry Gruber on 11-06-2024 Cholesterol.total/Chol esterol in HDL [Mass ratio] 3.03 {ratio} [facility] Serum creatinine measurement (mass/volume)Ordered By: Henry Gruber on 11-06-2024 Creatinine [Mass/Vol] 0.58 mg/dL Low 0.70-1.20 [facility] Comment on above: Previous reported re sult: 0.51 mg/dLEdited by: ENMANUEL on 11/06/24:1315 AMENDED REPORT 11/06/24 1315 CREAT,SERUM previously reported as: 0.51 L mg/dL Serum globulin measurementOr dered By: Henry Gruber on 11-06-2024 Globulin (S) [Mass/Vol] 3.1 g/dL 2.2-4.2 [facility] Comment on above: Previous reported re sult: 3.3 g/dLEdited by: ENMANUEL on 11/06/24:1315 AMENDED REPORT 11/06/24 1315 GLOB previously reported as: 3.3 g/dL Serum glucose measurement (m ass/volume)Ordered By: Henry Gruber on 11-06-2024 Glucose [Mass/Vol] 106 mg/dL High 70-99 [facility] Comment on above: Previous reported re sult: 108 mg/dLEdited by: ENMANUEL on 11/06/24:1315 AMENDED REPORT 11/06/24 1315 GLU previously reported as: 108 H mg/dL Serum or plasma alanine lauren otransferase (ALT) measurementOrdered By: Henry Gruber on 11-06-2024 ALT [Catalytic activity/Vol] 18 U/L <47 [facility] Comment on above: Previous reported re sult: 23 U/LEdited by: ENMANUEL on 11/06/24:1315 AMENDED REPORT 11/06/24 1315 ALT previously reported as: 23 U/L Serum or plasma albumin bell urement (mass/volume)Ordered By: Henry Gruber on 11-06-2024 Albumin [Mass/Vol] 3.8 g/dL 3.4-4.8 [facility] Comment on above: Previous reported re sult: 3.7 g/dLEdited by: ENMANUEL on 11/06/24:1315 AMENDED REPORT 11/06/241314 ALB previously reported as: 3.7 g/dL Serum or plasma albumin/glob ulin mass ratioOrdered By: Henry Gruber on 11-06-2024 Albumin/Globulin [Mass ratio] 1.2 {ratio} 0.9-2.4 [facility] Comment on above: Previous reported re sult: 1.1 RATIOEdited by: ENMANUEL on 11/06/24:1315 AMENDED REPORT 11/06/241314 A/G previously reported as: 1.1 RATIO Serum or plasma alkaline wilberto sphatase measurementOrdered By: Henry Gruber on 11-06-2024 ALP [Catalytic activity/Vol] 169 U/L High 40-129 [facility] Comment on above: Previous reported re sult: 170 U/LEdited by: ENMANUEL on 11/06/24:1315 AMENDED REPORT 11/06/241314 ALK P previously reported as: 170 H U/L Serum or plasma calcium bell urement (mass/volume)Ordered By: Henry Gruber on 11-06-2024 Calcium [Mass/Vol] 9.4 mg/dL 7.6-11.0 [facility] Comment on above: Previous reported re sult: 9.3 mg/dLEdited by: ENMANUEL on 11/06/24:1315 AMENDED REPORT 11/06/241314 CA previously reported as: 9.3 mg/dL Serum or plasma cholesterol in HDL measurement (mass/volume)Ordered By: Henry Gruber on 11-06-2024 Cholesterol in HDL [Mass/Vol] 38 mg/dL Low >40 [facility] Comment on above: National Cholesterol Education Program (NCEP) guidelines:<40 mg/dL: Low HDL-cholesterol (major risk factor for CHD)>= 60 mg/dL: High HDL-cholesterol (negative risk factor for CHD)HDL-cholesterol is affected by a number of factors, e.g. smoking, exercise, hormones, sex and age. Serum or plasma cholesterol measurement (mass/volume)Ordered By: Henry Gruber on 11-06-2024 Cholesterol [Mass/Vol] 115 mg/dL <201 [facility] Comment on above: Cholesterol level, D esirable <200 mg/dLBorderline high cholesterol 200-239 mg/dLHigh cholesterol >=240 mg/dLRecommendations of the NCEP Adult Treatment Panel for the following risk-cutoff thresholds for the [place] population. Serum or plasma triiodothyro nine (T3) measurement (mass/volume)Ordered By: Henry Gruber on 11-06-2024 T3 [Mass/Vol] 0.93 ng/mL 0.80-2.00 [facility] Comment on above: Previous reported re sult: 0.92 ng/mLEdited by: ENMANUEL on 11/06/24:1315 AMENDED REPORT 11/06/24 1315 T3 Total previously reported as: 0.92 ng/mL Serum or plasma urea nitroge n measurement (mass/volume)Ordered By: Henry Gruber on 11-06-2024 Urea nitrogen [Mass/Vol] 5 mg/dL 4-19 [facility] Serum or plasma uric acid me asurement (mass/volume)Ordered By: Henry Gruber on 11-06-2024 Urate [Mass/Vol] 4.0 mg/dL 3.5-7.2 [facility] Comment on above: The drugs N-Acetylcy steine and Metamizole may falsely depress this assay. Sodium levelOrdered By: Saran Gruber on 11-06-2024 Sodium [Moles/Vol] 137 mmol/L 133-145 [facility] Comment on above: Previous reported re sult: 138 mmol/LEdited by: ENMANUEL on 11/06/24:1315 AMENDED REPORT 11/06/24 1315 NA previously reported as: 138 mmol/L TSH DL <= 0.005 mIU/L QnOrde red By: Henry Gruber on 11-06-2024 TSH Qn 2.640 uIU/mL 0.300-4.200 [facility] Comment on above: Previous reported re sult: 2.690 uIU/mLEdited by: ENMANUEL on 11/06/24:1315 AMENDED REPORT 11/06/24 1315 TSH previously reported as: 2.690 uIU/mL ThyroxineOrdered By: Henry Gruber on 11-06-2024 T4 [Mass/Vol] 10.0 ug/dL 4.5-12.1 [facility] Comment on above: Previous reported re sult: 9.2 ug/dLEdited by: AUTOINS on 11/06/24:1315 AMENDED REPORT 11/06/24 131 T4 THYROXIN previously reported as: 9.2 ug/dL Total proteinOrdered By: Pedro Gruber on 11-06-2024 Protein [Mass/Vol] 6.9 g/dL 5.9-8.4 [facility] Comment on above: Previous reported re sult: 7.0 g/dLEdited by: AUTOINS on 11/06/24:1315 AMENDED REPORT 11/06/241314 T PROT previously reported as: 7.0 g/dL Triglycerides measurementOrd ered By: Henry Gruber on 11-06-2024 Triglyceride [Mass/Vol] 171 mg/dL <199 [facility] Comment on above: The drugs N-Acetylcy steine and Metamizole may falsely depress this assay. Normal range: <150 mg/dLBorderline High: 150-199 mg/dLHigh: 200-499 mg/dLVery High: >500 mg/dL White blood cell (WBC) count Ordered By: Henry Gruber on 11-06-2024 WBC (Bld) [#/Vol] 14.4 10*3/uL High 4.4-11.[address] [facility] 3606-05-2024 36 Name of Caller: Bellairelucas palma ([facility]) Contact Reason for Appointment: So called instating Pt wanted to cancel his 06/11 appt and does not want to r/s at this time. Please be advised [place] Name[place] [facility] 36on 05-24-2024 36 Radha from [employer] in [place] called to reschedule the patient's 05/16/[address] Giraldo. Patient is not ambulatory and will be arriving on cot. Appt RS to 06/11/24. Normal [facility] Serum or plasma thyroid stim ulating hormone (TSH) measurement (units/volume)Ordered By: Henry Gruber on 06-09-2023 TSH Qn 3.39 uIU/mL 0.358-3.74 [facility] Serum or plasma thyroxine (T 4) measurement (mass/volume)Ordered By: Henry Gruber on 06-09-2023 T4 [Mass/Vol] 8.2 ug/dL 4.5-12.1 [facility] Serum or plasma triiodothyro nine measurement by immunoassay (mass/volume)Ordered By: Henry Gruber on 06-09-2023 T3 IA [Mass/Vol] 1.05 ng/mL 0.6-1.81 [facility] No Panel InformationOrdered By: Henry Gruber on 05-10-2023 Prostate Specific Antigen Screen 4.50 ng/mL 0.00-4.00 [facility] Comment on above: This test was perfor med using the TPSA assay method [facility]. Values obtained with differentassay methods cannot be used interchangably.When changing PSA assays in the course of monitoring apatient, additional sequential testing should be carriedout to confirm baseline values. Laboratory - Chemistry and C hemistry - challengeOrdered By: Henry Gruber on 03-11-2023 T4 [Mass/Vol] 8.9 ug/dL 4.5-12.1 [facility] No Panel InformationOrdered By: Henry Gruber on 03-11-2023 Thyroid Stimulating Hormone (TSH) 3.55 uIU/mL 0.358-3.74 [facility] Total Triiodothyronine 1.11 ng/mL 0.6-1.81 [facility] Basophil percentageOrdered B y: Henry Gruber on 01-17-2023 Chloride [Moles/Vol] 102 mmol/L 98-107 [facility] Glucose [Mass/Vol] 108 mg/dL 74-106 [facility] Comment on above: Fasting Glucose resu lt from 100 to 125 mg/dL suggests IMPAIRED HOMEOSTASIS per A.D.A. criteria. Potassium [Moles/Vol] 3.9 mmol/L 3.5-5.1 [facility] Sodium [Moles/Vol] 136 mmol/L 136-145 [facility] Laboratory - Chemistry and C hemistry - challengeOrdered By: Henry Gruber on 01-17-2023 CO2 [Moles/Vol] 29.0 mmol/L 21.0-32.0 [facility] Urea nitrogen/Creatinine [Mass ratio] 10.0 mg/mg 10-20 [facility] No Panel InformationOrdered By: Henry Gruber on 01-17-2023 Estimated GFR (MDRD) Amer 168 mL/min >60 [facility] Comment on above: GFR Calc Estimated GFR (MDRD) Non-Af Amer 139 mL/min >60 [facility] Comment on above: Non- GFR Calc Serum or plasma calcium bell urement (mass/volume)Ordered By: Henry Gruber on 01-17-2023 Calcium [Mass/Vol] 8.9 mg/dL 8.5-10.1 [facility] Serum or plasma creatinine m easurement (mass/volume)Ordered By: Henry Gruber on 01-17-2023 Creatinine [Mass/Vol] 0.60 mg/dL 0.70-1.30 [facility] Comment on above: The validity of the calculated GFR & GFRAA in patients over 70 years has not been determined. Clinical correlation is essential. Serum or plasma urea nitroge n measurement (mass/volume)Ordered By: Henry Gruber on 01-17-2023 Urea nitrogen [Mass/Vol] 6 mg/dL 7-18 [facility] Serum or plasma uric acid me asurement (mass/volume)Ordered By: Henry Gruber on 01-17-2023 Urate [Mass/Vol] 4.1 mg/dL 3.5-7.2 [facility] Comment on above: The drugs N-Acetylcy steine and Metamizole may falsely depress this assay. Thin prep Papanicolaou smear with manual screeningOrdered By: Henry Gruber on 01-17-2023 Thin prep Papanicolaou smear with manual screening 5 5-15 [facility] Basophil percentageOrdered B y: Henry Gruber on 01-13-2023 Chloride [Moles/Vol] 106 mmol/L 98-107 [facility] Glucose [Mass/Vol] 120 mg/dL 74-106 [facility] Comment on above: Fasting Glucose resu lt from 100 to 125 mg/dL suggests IMPAIRED HOMEOSTASIS per A.D.A. criteria. Potassium [Moles/Vol] 3.7 mmol/L 3.5-5.1 [facility] Sodium [Moles/Vol] 139 mmol/L 136-145 [facility] Laboratory - Chemistry and C hemistry - challengeOrdered By: Henry Gruber on 01-13-2023 CO2 [Moles/Vol] 27.0 mmol/L 21.0-32.0 [facility] Urea nitrogen/Creatinine [Mass ratio] 12.2 mg/mg 10-20 [facility] No Panel InformationOrdered By: Henry Gruber on 01-13-2023 Estimated GFR (MDRD) Amer 211 mL/min >60 [facility] Comment on above: GFR Calc Estimated GFR (MDRD) Non-Af Amer 174 mL/min >60 [facility] Comment on above: Non- GFR Calc Serum or plasma calcium bell urement (mass/volume)Ordered By: Henry Gruber on 01-13-2023 Calcium [Mass/Vol] 8.5 mg/dL 8.5-10.1 [facility] Serum or plasma creatinine m easurement (mass/volume)Ordered By: Henry Gruber on 01-13-2023 Creatinine [Mass/Vol] 0.49 mg/dL 0.70-1.30 [facility] Comment on above: The validity of the calculated GFR & GFRAA in patients over 70 years has not been determined. Clinical correlation is essential. Serum or plasma urea nitroge n measurement (mass/volume)Ordered By: Henry Gruber on 01-13-2023 Urea nitrogen [Mass/Vol] 6 mg/dL 7-18 [facility] Thin prep Papanicolaou smear with manual screeningOrdered By: Henry Gruber on 01-13-2023 Thin prep Papanicolaou smear with manual screening 6 5-15 [facility] No Panel InformationOrdered By: Henry Gruber on 01-05-2023 Stool Pancreatic Elastase 440 >200 [facility] Comment on above: Result Units: ug Fernanda st./g Severe Pancreatic Insufficiency: <100 Moderate Pancreatic Insufficiency: 100 - 200 Normal: >200Performed at: [facility] [address] [id number] Director: Terra Velazquez MD, Phone: [phone] Basophil percentageOrdered B y: Henry Gruber on 01-03-2023 Bilirubin [Mass/Vol] 0.40 mg/dL 0.20-1.00 [facility] Comment on above: For patients on eltr ombopag therapy, use of Dimension [place] TBIL is not recommended. Chloride [Moles/Vol] 105 mmol/L 98-107 [facility] Glucose [Mass/Vol] 177 mg/dL 74-106 [facility] Comment on above: Fasting Glucose resu lt greater than or equal to 126 mg/dL suggests DIABETES MELLITUS per A.D.A. criteria. Potassium [Moles/Vol] 3.4 mmol/L 3.5-5.1 [facility] Protein [Mass/Vol] 6.3 g/dL 6.4-8.2 [facility] Sodium [Moles/Vol] 139 mmol/L 136-145 [facility] WBC (Bld) [#/Vol] 7.5 10*3/uL 4.4-11.0 [facility] Blood erythrocytes count (nu mber/volume)Ordered By: Henry Gruber on 01-03-2023 RBC (Bld) [#/Vol] 3.56 10*6/uL 4.6-6.[address] [facility] Blood hemoglobin measurement (mass/volume)Ordered By: Henry Gruber on 01-03-2023 Hemoglobin (Bld) [Mass/Vol] 11.0 g/dL 13.0-16.5 [facility] Blood platelet mean volumeOr dered By: Henry Gruber on 01-03-2023 Platelet mean volume (Bld) [Entitic vol] 10.8 fL 6.2-12.0 [facility] Determination of erythrocyte mean corpuscular volume (MCV)Ordered By: Henry Gruber on 01-03-2023 MCV (RBC) [Entitic vol] 96.3 fL 80-94 [facility] Hematocrit Auto (Bld) [Volum e fraction]Ordered By: Henry Gruber on 01-03-2023 Hematocrit (Bld) [Volume fraction] 34.3 % 40-54 [facility] INR in Blood by Coagulation assayOrdered By: Henry Gruber on 01-03-2023 INR Coag (Bld) [Relative time] 1.0 {INR} [facility] Iron measurement (mass/mass) Ordered By: Henry Gruber on 01-03-2023 Iron (Unsp spec) [Mass/Mass] 46 ug/dL 65-175 [facility] Laboratory - Chemistry and C hemistry - challengeOrdered By: Henry Gruber on 01-03-2023 ALP [Catalytic activity/Vol] 173 U/L 45-117 [facility] ALT [Catalytic activity/Vol] 37 U/L 16-61 [facility] CO2 [Moles/Vol] 28.0 mmol/L 21.0-32.0 [facility] Globulin (S) [Mass/Vol] 3.7 g/dL 2.2-4.2 [facility] Urea nitrogen/Creatinine [Mass ratio] 13.2 mg/mg 10-20 [facility] Laboratory - CoagulationOrde red By: Henry Gruber on 01-03-2023 PT Coag (PPP) [Time] 13.5 s 11.7-14.9 [facility] Laboratory - Hematology and Cell countsOrdered By: Henry Gruber on 01-03-2023 Erythrocyte distribution width (RBC) [Entitic vol] 51.2 fL 35.1-43.9 [facility] Erythrocyte distribution width (RBC) [Ratio] 14.5 % 11.6-14.6 [facility] MCH (RBC) [Entitic mass] 30.9 pg 27.0-32.0 [facility] MCHC Auto (RBC) [Mass/Vol]Or dered By: Henry Gruber on 01-03-2023 MCHC (RBC) [Mass/Vol] 32.1 g/dL 32-36 [facility] No Panel InformationOrdered By: Henry Gruber on 01-03-2023 Anti-Nuclear Antibody Screen Negative Negative [facility] Comment on above: Performed at: [address] [id number] Director: Ishmael De Los Santos PhD, Phone: [phone] Estimated GFR (MDRD) Amer 165 mL/min >60 [facility] Comment on above: GFR Calc Estimated GFR (MDRD) Non-Af Amer 137 mL/min >60 [facility] Comment on above: Non- GFR Calc Hepatitis A IgM Antibody Negative Negative [facility] Hepatitis B Core IgM Antibody Negative Negative [facility] Hepatitis C Antibody (EIA) Non-Reactive Non Reactive [facility] Hepatitis C Antibody Comment Comment . [facility] Comment on above: Not infected with HC V unless early or acute infection issuspected (which may be delayed in an immunocompromisedindividual), or other evidence exists to indicate HCVinfection. Miscellaneous Test See comment [facility] Comment on above: TEST RESULTS LIMITSL iver-Kidney Microsomal Ab <1.0 Units 0.0-20.0 Negative 0.0 - 20.0 Equivocal 20.1 - 24.9 Positive >24.9 LKM type 1 antibodies are detected in patients with autoimmune hepatitis type 2 and in up to 8% of patients with chronic HCV infection. TESTING PERFORMED AT [facility]. ORIGINAL REPORT ON FILE IN LAB CONTAINS ADDITIONAL TEST SITE INFORMATION. Total Iron Binding Capacity 202 ug/dL 250-450 [facility] Platelets bldOrdered By: Pedro Gruber on 01-03-2023 Platelets (Bld) [#/Vol] 324 10*3/uL 150-450 [facility] Serum mitochondria antibody detectionOrdered By: Henry Gruber on 01-03-2023 Mitochondria Ab Ql (S) <20.0 Units 0.0-20.0 [facility] Comment on above: Negative 0.0 - 20.0 Equivocal 20.1 - 24.9 Positive >24.9Mitochondrial (M2) Antibodies are found in 90-96% ofpatients with primary biliary cirrhosis. Serum or plasma actin IgG an tibody assay (units/volume)Ordered By: Henry Gruber on 01-03-2023 Actin IgG Qn 11 Units 0-19 [facility] Comment on above: Negative 0 - 19 Weak positive 20 - 30 Moderate to strong positive >30 Actin Antibodies are found in 52-85% of patients with autoimmune hepatitis or chronic active hepatitis and in 22% of patients with primary biliary cirrhosis.Performed at: [facility] [id number] Director: Ishmael De Los Santos PhD, Phone: [phone] Serum or plasma albumin bell urement (mass/volume)Ordered By: Henry Gruber on 01-03-2023 Albumin [Mass/Vol] 2.6 g/dL 3.2-5.0 [facility] Serum or plasma albumin/glob ulin mass ratioOrdered By: Henry Gruber on 01-03-2023 Albumin/Globulin [Mass ratio] 0.7 {ratio} 0.9-2.4 [facility] Serum or plasma calcium bell urement (mass/volume)Ordered By: Henry Gruber on 01-03-2023 Calcium [Mass/Vol] 8.6 mg/dL 8.5-10.1 [facility] Serum or plasma creatinine m easurement (mass/volume)Ordered By: Henry Gruber on 01-03-2023 Creatinine [Mass/Vol] 0.61 mg/dL 0.70-1.30 [facility] Comment on above: The validity of the calculated GFR & GFRAA in patients over 70 years has not been determined. Clinical correlation is essential. Serum or plasma ferritin allie surement (mass/volume)Ordered By: Henry Gruber on 01-03-2023 Ferritin [Mass/Vol] 246 ng/mL [address] [facility] Serum or plasma hepatitis B virus surface antigen detection by immunoassayOrdered By: Henry Gruber on 01-03-2023 HBV surface Ag IA Ql Negative Negative [facility] Serum or plasma iron saturat ion measurement (mass fraction)Ordered By: Henry Gruber on 01-03-2023 Iron saturation [Mass fraction] 22.8 % 15.0-55.0 [facility] Serum or plasma urea nitroge n measurement (mass/volume)Ordered By: Henry Gruber on 01-03-2023 Urea nitrogen [Mass/Vol] 8 mg/dL 7-18 [facility] Thin prep Papanicolaou smear with manual screeningOrdered By: Henry Gruber on 01-03-2023 Thin prep Papanicolaou smear with manual screening 44 U/L 15-37 [facility] Thin prep Papanicolaou smear with manual screening 6 5-15 [facility] No Panel InformationOrdered By: Henry Gruber on 10-18-2022 Thyroid Stimulating Hormone (TSH) 12.70 uIU/mL 0.358-3.74 [facility] Vitamin D 25-Hydroxy 46.4 ng/mL [facility] Comment on above: Vitamin D 25(OH) Sta tus Range Deficiency <20 ng/mL (50nmol/L) Insufficiency 20 - 30 ng/mL (50 - 75 nmol/L) Sufficiency 30 - 100 ng/mL (75 - 250 nmol/L) Toxicity >100 ng/mL (>250 nmol/L) Bacteria identified Cx Nom ( Wound)Ordered By: Henry Gruber on 10-03-2022 Wound Culture Proteus mirabilis [facility] Bacteria identified Cx Nom ( Wound)Ordered By: Henry Gruber on 10-01-2022 Wound Culture Proteus mirabilis [facility] Gram stain for investigation of transfusion reactionOrdered By: Henry Gruber on 10-01-2022 Microscopic observation Gram stain Nom (Unsp spec) [facility] Basophil percentageOrdered B y: Henry Gruber on 09-20-2022 Chloride [Moles/Vol] 98 mmol/L 98-107 [facility] Glucose [Mass/Vol] 92 mg/dL 74-106 [facility] Potassium [Moles/Vol] 3.6 mmol/L 3.5-5.1 [facility] Sodium [Moles/Vol] 134 mmol/L 136-145 [facility] Laboratory - Chemistry and C hemistry - challengeOrdered By: Henry Gruber on 09-20-2022 CO2 [Moles/Vol] 31.0 mmol/L 21.0-32.0 [facility] Urea nitrogen/Creatinine [Mass ratio] 20.3 mg/mg 10-20 [facility] No Panel InformationOrdered By: Henry Gruber on 09-20-2022 Estimated GFR (MDRD) Amer 272 mL/min >60 [facility] Comment on above: GFR Calc Estimated GFR (MDRD) Non-Af Amer 225 mL/min >60 [facility] Comment on above: Non- GFR Calc Prostate Specific Antigen Screen 5.57 ng/mL 0.00-4.00 [facility] Comment on above: This test was perfor med using the TPSA assay method for theGreen[place]1 chemistry system. Values obtained with differentassay methods cannot be used interchangably.When changing PSA assays in the course of monitoring apatient, additional sequential testing should be carriedout to confirm baseline values. Serum or plasma calcium bell urement (mass/volume)Ordered By: Henry Gruber on 09-20-2022 Calcium [Mass/Vol] 8.5 mg/dL 8.5-10.1 [facility] Serum or plasma creatinine m easurement (mass/volume)Ordered By: Henry Gruber on 09-20-2022 Creatinine [Mass/Vol] 0.39 mg/dL 0.70-1.30 [facility] Comment on above: The validity of the calculated GFR & GFRAA in patients over 70 years has not been determined. Clinical correlation is essential. Serum or plasma urea nitroge n measurement (mass/volume)Ordered By: Henry Gruber on 09-20-2022 Urea nitrogen [Mass/Vol] 8 mg/dL 7-18 [facility] Thin prep Papanicolaou smear with manual screeningOrdered By: Henry Gruber on 09-20-2022 Thin prep Papanicolaou smear with manual screening 5 5-15 [facility] Basophil percentageOrdered B y: Henry Gruber on 09-15-2022 Chloride [Moles/Vol] 93 mmol/L 98-107 [facility] Glucose [Mass/Vol] 95 mg/dL 74-106 [facility] Potassium [Moles/Vol] 3.0 mmol/L 3.5-5.1 [facility] Sodium [Moles/Vol] 132 mmol/L 136-145 [facility] Laboratory - Chemistry and C hemistry - challengeOrdered By: Henry Gruber on 09-15-2022 CO2 [Moles/Vol] 33.0 mmol/L 21.0-32.0 [facility] Urea nitrogen/Creatinine [Mass ratio] 16.6 mg/mg 10-20 [facility] No Panel InformationOrdered By: Henry Gruber on 09-15-2022 Estimated GFR (MDRD) Amer 252 mL/min >60 [facility] Comment on above: GFR Calc Estimated GFR (MDRD) Non-Af Amer 208 mL/min >60 [facility] Comment on above: Non- GFR Calc Serum or plasma calcium bell urement (mass/volume)Ordered By: Henry Gruber on 09-15-2022 Calcium [Mass/Vol] 8.6 mg/dL 8.5-10.1 [facility] Serum or plasma creatinine m easurement (mass/volume)Ordered By: Henry Gruber on 09-15-2022 Creatinine [Mass/Vol] 0.42 mg/dL 0.70-1.30 [facility] Comment on above: The validity of the calculated GFR & GFRAA in patients over 70 years has not been determined. Clinical correlation is essential. Serum or plasma urea nitroge n measurement (mass/volume)Ordered By: Henry Gruber on 09-15-2022 Urea nitrogen [Mass/Vol] 7 mg/dL 7-18 [facility] Thin prep Papanicolaou smear with manual screeningOrdered By: Henry Gruber on 09-15-2022 Thin prep Papanicolaou smear with manual screening 6 5-15 [facility] Basophil percentageOrdered B y: Henry Gruber on 09-13-2022 Chloride [Moles/Vol] 92 mmol/L 98-107 [facility] Glucose [Mass/Vol] 92 mg/dL 74-106 [facility] Potassium [Moles/Vol] 3.0 mmol/L 3.5-5.1 [facility] Sodium [Moles/Vol] 131 mmol/L 136-145 [facility] WBC (Bld) [#/Vol] 9.6 10*3/uL 4.4-11.0 [facility] Blood erythrocytes count (nu mber/volume)Ordered By: Henry Gruber on 09-13-2022 RBC (Bld) [#/Vol] 2.88 10*6/uL 4.6-6.[address] [facility] Blood hemoglobin measurement (mass/volume)Ordered By: Henry Gruber on 09-13-2022 Hemoglobin (Bld) [Mass/Vol] 10.0 g/dL 13.0-16.5 [facility] Blood platelet mean volumeOr dered By: Henry Gruber on 09-13-2022 Platelet mean volume (Bld) [Entitic vol] 10.5 fL 6.2-12.0 [facility] Determination of erythrocyte mean corpuscular volume (MCV)Ordered By: Henry Gruber on 09-13-2022 MCV (RBC) [Entitic vol] 103.1 fL 80-94 [facility] Hematocrit Auto (Bld) [Volum e fraction]Ordered By: Henry Gruber on 09-13-2022 Hematocrit (Bld) [Volume fraction] 29.7 % 40-54 [facility] Laboratory - Chemistry and C hemistry - challengeOrdered By: Henry Gruber on 09-13-2022 CO2 [Moles/Vol] 32.0 mmol/L 21.0-32.0 [facility] Urea nitrogen/Creatinine [Mass ratio] 23.9 mg/mg 10-20 [facility] Laboratory - Hematology and Cell countsOrdered By: Henry Gruber on 09-13-2022 Erythrocyte distribution width (RBC) [Entitic vol] 57.1 fL 35.1-43.9 [facility] Erythrocyte distribution width (RBC) [Ratio] 15.3 % 11.6-14.6 [facility] MCH (RBC) [Entitic mass] 34.7 pg 27.0-32.0 [facility] MCHC Auto (RBC) [Mass/Vol]Or dered By: Henry Gruber on 09-13-2022 MCHC (RBC) [Mass/Vol] 33.7 g/dL 32-36 [facility] No Panel InformationOrdered By: Henry Gruber on 09-13-2022 Estimated GFR (MDRD) Amer 286 mL/min >60 [facility] Comment on above: GFR Calc Estimated GFR (MDRD) Non-Af Amer 237 mL/min >60 [facility] Comment on above: Non- GFR Calc Platelets bldOrdered By: Pedro grant Allyn on 09-13-2022 Platelets (Bld) [#/Vol] 327 10*3/uL 150-450 [facility] Serum or plasma calcium bell urement (mass/volume)Ordered By: Henry Gruber on 09-13-2022 Calcium [Mass/Vol] 8.6 mg/dL 8.5-10.1 [facility] Serum or plasma creatinine m easurement (mass/volume)Ordered By: Henry Gruber on 09-13-2022 Creatinine [Mass/Vol] 0.38 mg/dL 0.70-1.30 [facility] Comment on above: The validity of the calculated GFR & GFRAA in patients over 70 years has not been determined. Clinical correlation is essential. Serum or plasma urea nitroge n measurement (mass/volume)Ordered By: Henry Gruber on 09-13-2022 Urea nitrogen [Mass/Vol] 9 mg/dL 7-18 [facility] Thin prep Papanicolaou smear with manual screeningOrdered By: Henry Gruber on 09-13-2022 Thin prep Papanicolaou smear with manual screening 7 5-15 [facility] Basophil percentageOrdered B y: Henry Gruber on 09-06-2022 Bilirubin [Mass/Vol] 1.40 mg/dL 0.20-1.00 [facility] Comment on above: For patients on eltr ombopag therapy, use of Dimension [place] TBIL is not recommended. Chloride [Moles/Vol] 87 mmol/L 98-107 [facility] Cholesterol [Mass/Vol] 121 mg/dL <200 [facility] Comment on above: <200 mg/dL Desirable 200-240 mg/dL Borderline >240 mg/dL High Risk Glucose [Mass/Vol] 115 mg/dL 74-106 [facility] Comment on above: Fasting Glucose resu lt from 100 to 125 mg/dL suggests IMPAIRED HOMEOSTASIS per A.D.A. criteria. Potassium [Moles/Vol] 3.1 mmol/L 3.5-5.1 [facility] Protein [Mass/Vol] 6.2 g/dL 6.4-8.2 [facility] Sodium [Moles/Vol] 122 mmol/L 136-145 [facility] Triglyceride [Mass/Vol] 130 mg/dL <199 [facility] Comment on above: The drugs N-Acetylcy steine and Metamizole may falsely depress this assay.Serum Triglycerides Reference Interval Normal <150 mg/dL Borderline high 150 - 199 mg/dL High 200 - 499 mg/dL Very High > or = 500 mg/dL WBC (Bld) [#/Vol] 11.2 10*3/uL 4.4-11.[address] [facility] Blood erythrocytes count (nu mber/volume)Ordered By: Henry Gruber on 09-06-2022 RBC (Bld) [#/Vol] 2.83 10*6/uL 4.6-6.[address] [facility] Blood hemoglobin measurement (mass/volume)Ordered By: Henry Gruber on 09-06-2022 Hemoglobin (Bld) [Mass/Vol] 10.1 g/dL 13.0-16.5 [facility] Blood platelet mean volumeOr dered By: Henry Gruber on 09-06-2022 Platelet mean volume (Bld) [Entitic vol] 10.9 fL 6.2-12.0 [facility] Determination of erythrocyte mean corpuscular volume (MCV)Ordered By: Henry Gruber on 09-06-2022 MCV (RBC) [Entitic vol] 101.4 fL 80-94 [facility] Hematocrit Auto (Bld) [Volum e fraction]Ordered By: Henry Gruber on 09-06-2022 Hematocrit (Bld) [Volume fraction] 28.7 % 40-54 [facility] Laboratory - Chemistry and C hemistry - challengeOrdered By: Henry Gruber on 09-06-2022 ALP [Catalytic activity/Vol] 328 U/L 45-117 [facility] ALT [Catalytic activity/Vol] 92 U/L 16-61 [facility] CO2 [Moles/Vol] 27.0 mmol/L 21.0-32.0 [facility] Globulin (S) [Mass/Vol] 3.5 g/dL 2.2-4.2 [facility] Urea nitrogen/Creatinine [Mass ratio] 17.1 mg/mg 10-20 [facility] Laboratory - Hematology and Cell countsOrdered By: Henry Gruber on 09-06-2022 Erythrocyte distribution width (RBC) [Entitic vol] 57.7 fL 35.1-43.9 [facility] Erythrocyte distribution width (RBC) [Ratio] 15.6 % 11.6-14.6 [facility] MCH (RBC) [Entitic mass] 35.7 pg 27.0-32.0 [facility] MCHC Auto (RBC) [Mass/Vol]Or dered By: Henry Gruber on 09-06-2022 MCHC (RBC) [Mass/Vol] 35.2 g/dL 32-36 [facility] No Panel InformationOrdered By: Henry Gruber on 09-06-2022 Estimated GFR (MDRD) Amer 260 mL/min >60 [facility] Comment on above: GFR Calc Estimated GFR (MDRD) Non-Af Amer 215 mL/min >60 [facility] Comment on above: Non- GFR Calc Thyroid Stimulating Hormone (TSH) 10.20 uIU/mL 0.358-3.74 [facility] Vitamin D 25-Hydroxy 15.9 ng/mL [facility] Comment on above: Vitamin D 25(OH) Sta tus Range Deficiency <20 ng/mL (50nmol/L) Insufficiency 20 - 30 ng/mL (50 - 75 nmol/L) Sufficiency 30 - 100 ng/mL (75 - 250 nmol/L) Toxicity >100 ng/mL (>250 nmol/L) Platelets bldOrdered By: Pedro Gruber on 09-06-2022 Platelets (Bld) [#/Vol] 372 10*3/uL 150-450 [facility] Serum or plasma albumin bell urement (mass/volume)Ordered By: Henry Gruber on 09-06-2022 Albumin [Mass/Vol] 2.7 g/dL 3.2-5.0 [facility] Serum or plasma albumin/glob ulin mass ratioOrdered By: Henry Gruber on 09-06-2022 Albumin/Globulin [Mass ratio] 0.8 {ratio} 0.9-2.4 [facility] Serum or plasma calcium bell urement (mass/volume)Ordered By: Henry Gruber on 09-06-2022 Calcium [Mass/Vol] 8.3 mg/dL 8.5-10.1 [facility] Serum or plasma cholesterol in HDL measurement (mass/volume)Ordered By: Henry Gruber on 09-06-2022 Cholesterol in HDL [Mass/Vol] 39 mg/dL >40 [facility] Comment on above: The drugs N-Acetylcy steine and Metamizole may falsely depress this assay. Reference Range HDL <40 mg/dL Low HDL Cholesterol HDL >or= 60 mg/dL High HDL Cholesterol Serum or plasma cholesterol in VLDL measurement (mass/volume)Ordered By: Henry Gruber on 09-06-2022 Cholesterol in VLDL [Mass/Vol] 26 mg/dL 5-40 [facility] Serum or plasma creatinine m easurement (mass/volume)Ordered By: Henry Gruber on 09-06-2022 Creatinine [Mass/Vol] 0.41 mg/dL 0.70-1.30 [facility] Comment on above: The validity of the calculated GFR & GFRAA in patients over 70 years has not been determined. Clinical correlation is essential. Serum or plasma low density lipoprotein (LDL) cholesterol measurement (mass/volume)Ordered By: Henry Gruber on 09-06-2022 Cholesterol in LDL [Mass/Vol] 56 mg/dL 0-130 [facility] Serum or plasma urea nitroge n measurement (mass/volume)Ordered By: Henry Gruber on 09-06-2022 Urea nitrogen [Mass/Vol] 7 mg/dL 7-18 [facility] Thin prep Papanicolaou smear with manual screeningOrdered By: Henry Gruber on 09-06-2022 Thin prep Papanicolaou smear with manual screening 193 U/L 15-37 [facility] Thin prep Papanicolaou smear with manual screening 8 5-15 [facility] Whole blood hemoglobin A1c/t otal hemoglobin ratio (mass fraction)Ordered By: Henry Gruber on 09-06-2022 HbA1c (Bld) [Mass fraction] 5.9 % 3.8-5.6 [facility] Comment on above: Normal < 5.7 % Predi abetic 5.7 - 6.4 % Diabetic >or= 6.5 % Please note range changes. GLUCOSE-POCTon 09-04-2022 Glucose [Mass/Vol] 115 mg/dL High 74 - 99 [facility] Comment on above: Performed By: #### R ENAL #### [facility] [address] [place] [address] Glucose [Mass/Vol] 138 mg/dL High 74 - 99 [facility] Comment on above: Performed By: #### G ZOHREH #### [facility] [address] [place] [address] Laboratory - Chemistry and C hemistry - challengeon 09-04-2022 Glucose [Mass/Vol] 115 mg/dL above high threshold 74 - 99 [facility] Work Phone: Glucose [Mass/Vol] 138 mg/dL above high threshold 74 - 99 [facility] Work Phone: Order Reconciliationon 09-04 Order Reconciliation [...] Discharge Reconc (more content not included)... Normal [facility] RENAL FUNCTION PANELon 09-04 Albumin [Mass/Vol] 3.4 g/dL Normal 3.4 - 5.0 [facility] Comment on above: Performed By: #### M G #### [facility] [address] [place] [address] Anion gap [Moles/Vol] 10 mmol/L Normal 10 - 20 [facility] Comment on above: Performed By: #### M G #### [facility] [address] [place] [address] Calcium [Mass/Vol] 8.0 mg/dL Low 8.6 - 10.3 [facility] Comment on above: Performed By: #### M G #### [facility] [address] [place] [address] Chloride [Moles/Vol] 90 mmol/L Low 98 - 107 [facility] Comment on above: Performed By: #### M G #### [facility] [address] [place] [address] Creatinine [Mass/Vol] 0.43 mg/dL Low 0.50 - 1.30 [facility] Comment on above: Performed By: #### M G #### [facility] [address] [place] [address] eGFR MALE >90 Normal >90 [facility] Comment on above: Result Comment: CALC ULATIONS OF ESTIMATED GFR ARE PERFORMED USING THE 2020 CKD-EPI STUDY REFIT EQUATION WITHOUT THE RACE VARIABLE FOR THE IDMS-TRACEABLE CREATININE METHODS. https://jasn.asnjournals.org/content//ASN.35949 66531 Performed By: #### M G #### [facility] [address] [place] [address] Glucose [Mass/Vol] 110 mg/dL High 74 - 99 [facility] Comment on above: Performed By: #### M G #### [facility] [address] [place] [address] HCO3 (Bld) [Moles/Vol] 32 mmol/L Normal 21 - 32 [facility] Comment on above: Performed By: #### M G #### [facility] [address] [place] [address] Phosphate [Mass/Vol] 2.2 mg/dL Low 2.5 - 4.9 [facility] Comment on above: Result Comment: The performance characteristics of phosphorus testing in heparinized plasma have been validated by the individual laboratory site where testing is performed. Testing on heparinized plasma is not approved by the FDA; however, such approval is not necessary. Performed By: #### M G #### [facility] [address] [place] [address] Potassium [Moles/Vol] 3.6 mmol/L Normal 3.5 - 5.3 [facility] Comment on above: Performed By: #### M G #### [facility] [address] [place] [address] Sodium [Moles/Vol] 128 mmol/L Low 136 - 145 [facility] Comment on above: Performed By: #### M G #### [facility] [address] [place] [address] Urea nitrogen [Mass/Vol] 7 mg/dL Normal 6 - 23 [facility] Comment on above: Performed By: #### M G #### [facility] [address] [place] [address] Renal Function Panelon 09-04 Albumin BCP dye [Mass/Vol] 3.4 g/dL 3.4 - 5.0 [facility] Work Phone: Anion gap [Moles/Vol] 10 mmol/L 10 - 20 - [facility] Work Phone: Calcium [Mass/Vol] 8.0 mg/dL below low threshold 8.6 - 10.3 [facility] Work Phone: Chloride [Moles/Vol] 90 mmol/L below low threshold 98 - 107 [facility] Work Phone: CO2 [Moles/Vol] 32 mmol/L 21 - 32 [facility] Work Phone: Creatinine [Mass/Vol] 0.43 mg/dL below low threshold See Below [facility] Work Phone: Comment on above: Reference Range: 0.5 0 - 1.30 Glucose [Mass/Vol] 110 mg/dL above high threshold 74 - 99 [facility] Work Phone: Phosphate [Mass/Vol] 2.2 mg/dL below low threshold 2.5 - 4.9 [facility] Work Phone: Comment on above: The performance fransisca acteristics of phosphorus testing in heparinized plasma have been validated by the individual laboratory site where testing is performed. Testing on heparinized plasma is not approved by the FDA; however, such approval is not necessary. Potassium [Moles/Vol] 3.6 mmol/L 3.5 - 5.3 [facility] Work Phone: Sodium [Moles/Vol] 128 mmol/L below low threshold 136 - 145 [facility] Work Phone: Urea nitrogen [Mass/Vol] 7 mg/dL 6 - 23 [facility] Work Phone: Renal Function Panel >90 >90 [facility] Work Phone: Comment on above: CALCULATIONS OF ROSANA MATED GFR ARE PERFORMED USING THE 2020 CKD-EPI STUDY REFIT EQUATION WITHOUT THE RACE VARIABLE FOR THE IDMS-TRACEABLE CREATININE METHODS.https://jasn.asnjournals.org/content//A .4375967356 CBCon 09-03-2022 Erythrocyte distribution width (RBC) [Ratio] 15.3 % High 11.5 - 14.5 [facility] Comment on above: Performed By: #### M G #### [facility] [address] [place] [address] Hematocrit (Bld) [Volume fraction] 29.0 % Low 41.0 - 52.0 [facility] Comment on above: Performed By: #### M G #### [facility] [address] [place] [address] Hemoglobin (Bld) [Mass/Vol] 10.1 g/dL Low 13.5 - 17.5 [facility] Comment on above: Performed By: #### M G #### [facility] [address] [place] [address] MCHC (RBC) [Mass/Vol] 34.8 g/dL Normal 32.0 - 36.0 [facility] Comment on above: Performed By: #### M G #### [facility] [address] [place] [address] MCV (RBC) [Entitic vol] 102 fL High 80 - 100 [facility] Comment on above: Performed By: #### M G #### [facility] [address] [place] [address] NUCLEATED RBC 0.2 /100 WBC Normal 0.0-0.0 [facility] Comment on above: Performed By: #### M G #### [facility] [address] [place] [address] Platelets (Bld) [#/Vol] 245 10*3/uL Normal 150 - 450 [facility] Comment on above: Performed By: #### M G #### [facility] [address] [place] [address] RBC 2.85 x10E12/L Low 4.50 - 5.90 [facility] Comment on above: Performed By: #### M G #### [facility] [address] [place] [address] WBC (Bld) [#/Vol] 9.0 10*3/uL Normal 4.4 - 11.3 [facility] Comment on above: Performed By: #### M G #### [facility] [address] [place] [address] Consult-Cardiac Surgeryon Consult-Cardiac Surgery Service: Service: Cardiac [...] Known Allergies: Objective: Objective Information: T PRBPMAPSpO2 [id number]/[id number]% Date/Time09/03 12: 12: 12: 12: 12:38 Range(36.1C [...] Skin: Warm, dry Medications: Medications: Continuous Medications ------- 1. Lactated Ringers Infusion: 1000 mL IntraVenous Scheduled Medications ------- 1. Allopurinol: 300 mg Oral Every 24 [...] Topical 3 Times a Day PRN Medications ------- 1. Dextrose 50% in Water Injectable: 25 [...] arterial hyperten (more content not included)... Normal [facility] Daily Progress Note-Medicine on 09-03-2022 Daily Progress Note-Medicine Service: Medicine Subjective Data: CHRISTOS LYONS is a 77 year old Male who is Hospital Day # 7. On room air, feels better, tolerating PO intake, brother bedside, afebrile, no overnight events reported. Objective Data: Objective Information: T PRBPMAPSpO2 [id number]/6695% Date/Time09/03 8: 8: 8: 8: 8:44 Range(36.1C - 36.8C ) (68 - 89 ) (16 - 18 ) (102 - 141 )/ (63 - 83 ) (92% - 100% ) Pain reported at 09/02 21:34: 0 = None ---- Intake and Output ----- Mn/Dy/Year TimeIntakeOutputNet Sep 02, 2022 2:00 [id number] The Intake and Output Totals for the last 24 hours are: IntakeOutputNet [id number] Physical Exam by System: Constitutional: no acute [...] / 130 L 89 L 8 / ------- Glucose -- 118 H K+ HCO3- Creat \ 3.3 [...] Updated: 03-Sep-2022 09:56 by Caesar Sal) Normal [facility] Daily Progress Note-Nephrolo jaime 09-03-2022 Daily Progress Note-Nephrology Service: Nephrology Subjective Data: CHRISTOS LYONS is a 77 year old Male who is Hospital Day # 7. Seen and examined. Working with therapy. No acute events, offers no new complaints. Chart/labs/meds/notes/catalina ging/VS reviewed. Objective Data: Objective Information: T PRBPMAPSpO2 [id number]/7295% Date/Time09/03 12: 12: 12: 12: 12:38 Range(36.1C - 36.8C ) (68 - 89 ) (16 - 18 ) (102 - 141 )/ (63 - 83 ) (92% - 100% ) Pain reported at 09/02 21:34: 0 = None ---- Intake and Output ----- Mn/Dy/Year TimeIntakeOutputNet Sep 03, 2022 2:00 [id number] The Intake and Output Totals for the last 24 hours are: IntakeOutputNet [id number] Physical Exam by System: Constitutional: Well developed, [...] lower extremities bilaterally Medication: Medications: Continuous Medications ------- 1. Lactated Ringers Infusion: 1000 mL IntraVenous Scheduled Medications ------- 1. Allopurinol: 300 mg Oral Every 24 [...] Topical 3 Times a Day PRN Medications ------- 1. Dextrose 50% in Water Injectable: 25 [...] / 130 L 89 L 8 / ------- Glucose -- 118 H K+ HCO3- Creat \ 3.3 [...] GERD. Sma (more content not included)... Normal [facility] GLUCOSE-POCTon 09-03-2022 Glucose [Mass/Vol] 136 mg/dL High 74 - 99 [facility] Comment on above: Performed By: #### G ZOHREH #### [facility] [address] [place] [address] Glucose [Mass/Vol] 122 mg/dL High 74 - 99 [facility] Comment on above: Performed By: #### G ZOHREH ####[facility] [id number] [place] [address] Glucose [Mass/Vol] 147 mg/dL High 74 - 99 [facility] Comment on above: Performed By: #### G ZOHREH #### [facility] [address] [place] [address] Laboratory - Chemistry and C hemistry - challengeon 09-03-2022 Glucose [Mass/Vol] 136 mg/dL above high threshold 74 - 99 [facility] Work Phone: Glucose [Mass/Vol] 122 mg/dL above high threshold 74 - 99 [facility] Work Phone: Glucose [Mass/Vol] 147 mg/dL above high threshold 74 - 99 [facility] Work Phone: Laboratory - Hematology and Cell countson 09-03-2022 Erythrocyte distribution width (RBC) [Ratio] 15.3 % above high threshold See Below [facility] Work Phone: Comment on above: Reference Range: 11. 5 - 14.5 Hematocrit (Bld) [Volume fraction] 29.0 % below low threshold See Below [facility] Work Phone: Comment on above: Reference Range: 41. 0 - 52.0 Hemoglobin (Bld) [Mass/Vol] 10.1 g/dL below low threshold See Below [facility] Work Phone: Comment on above: Reference Range: 13. 5 - 17.5 MCHC (RBC) [Mass/Vol] 34.8 g/dL See Below [facility] Work Phone: Comment on above: Reference Range: 32. 0 - 36.0 MCV (RBC) [Entitic vol] 102 fL above high threshold 80 - 100 [facility] Work Phone: Platelets (Bld) [#/Vol] 245 10*3/uL 150 - 450 [facility] Work Phone: RBC (Bld) [#/Vol] 2.85 {x10E12/L} below low threshold See Below [facility] Work Phone: Comment on above: Reference Range: 4.5 0 - 5.90 WBC (Bld) [#/Vol] 9.0 10*3/uL 4.4 - 11.3 [facility] Work Phone: No Panel Informationon 09-03 0.2 {/100_WBC} 0.0-0.0 [facility] Work Phone: RENAL FUNCTION PANELon 09-03 Albumin [Mass/Vol] 3.3 g/dL Low 3.4 - 5.0 [facility] Comment on above: Performed By: #### R ENAL #### [facility] [address] [place] [address] Anion gap [Moles/Vol] 13 mmol/L Normal 10 - 20 [facility] Comment on above: Performed By: #### R ENAL #### [facility] [address] [place] [address] Calcium [Mass/Vol] 8.6 mg/dL Normal 8.6 - 10.3 [facility] Comment on above: Performed By: #### R ENAL #### [facility] [address] [place] [address] Chloride [Moles/Vol] 89 mmol/L Low 98 - 107 [facility] Comment on above: Performed By: #### R ENAL #### [facility] [address] [place] [address] Creatinine [Mass/Vol] 0.47 mg/dL Low 0.50 - 1.30 [facility] Comment on above: Performed By: #### R ENAL #### [facility] [address] [place] [address] eGFR MALE >90 Normal >90 [facility] Comment on above: Result Comment: CALC ULATIONS OF ESTIMATED GFR ARE PERFORMED USING THE 2020 CKD-EPI STUDY REFIT EQUATION WITHOUT THE RACE VARIABLE FOR THE IDMS-TRACEABLE CREATININE METHODS. https://jasn.asnjournals.org/content/early//ASN.64135 74796 Performed By: #### R ENAL #### [facility] [address] [place] [address] Glucose [Mass/Vol] 118 mg/dL High 74 - 99 [facility] Comment on above: Performed By: #### R ENAL #### [facility] [address] [place] [address] HCO3 (Bld) [Moles/Vol] 31 mmol/L Normal 21 - 32 [facility] Comment on above: Performed By: #### R ENAL #### [facility] [address] [place] [address] Phosphate [Mass/Vol] 1.9 mg/dL Low 2.5 - 4.9 [facility] Comment on above: Result Comment: The performance characteristics of phosphorus testing in heparinized plasma have been validated by the individual laboratory site where testing is performed. Testing on heparinized plasma is not approved by the FDA; however, such approval is not necessary. Performed By: #### R ENAL #### [facility] [address] [place] [address] Potassium [Moles/Vol] 3.3 mmol/L Low 3.5 - 5.3 [facility] Comment on above: Performed By: #### R ENAL #### [facility] [address] [place] [address] Sodium [Moles/Vol] 130 mmol/L Low 136 - 145 [facility] Comment on above: Performed By: #### R ENAL #### [facility] [address] [place] [id number] Urea nitrogen [Mass/Vol] 8 mg/dL Normal 6 - 23 [facility] Comment on above: Performed By: #### R ENAL #### [facility] [address] [place] [address] Rehab Note-BLANKET WEAVER DYSPHAGIA WOLF ATMENTon 09-03-2022 Rehab Note-BLANKET WEAVER DYSPHAGIA TREATMENT Rehab: Info: Mode of TreatmentSLP DYSPHAGIA TREATMENT Time IN14:40 Time OUT15:07 Total Treatment [id number] Communicate/Swallow: Swallow Assessment/Intervention/T reatment OutcomePt seen for dysphagia treatment. Family members [...] Discharge date unknown at time of visit. BLANKET WEAVER to follow during acute care stay. Question if BLANKET WEAVER services required post d/c. Electronic Signatures: Alysa Galvez (BLANKET WEAVER) (Signed 03-Sep-2022 15:14) Entered: Info, Communicate/Swallow, Short Term Goals Authored: Info, Communicate/Swallow Last Updated: 03-Sep-2022 15:14 by Alysa Galvez (BLANKET WEAVER) Normal [facility] Rehab Note-attemptedon 09-03 Rehab Note-attempted Rehab: Info: DisciplineSPTA attempt tx Mode of Treatmentattempted Time IN13:22 Reason Treatment Not Performedpatient/family declined treatment; pt declined tx at this time stated I don't want to do it. pt also noted having bowel movements at this time, RN notified. Electronic Signatures: Prudencio Franco (SPTA) (Signed 03-Sep-2022 13:25) Authored: Info Nick De Jesus (PT) (Signed 06-Sep-2022 09:41) Co-Signer: Davis Stanley (WATER TREATMENT OPERATOR) (Signed 03-Sep-2022 13:30) Authored: Info Last Updated: 06-Sep-2022 09:41 by Nick De Jesus (PT) [facility] Tdiw-jy-ojujsukprkp Rehab Ospf-fn-zipmgjqoy Rehab: Info: Disciplineoccupational therapist Mode of Treatmentco-treatment; occupational therapy Time IN15:05 Time OUT15:30 Total Treatment [id number] Total Minutes CommentCo-tx due to skilled technique [...] Status (Cognition)oriented x 3 Mobility/Tone: Bed Mobility Assessment/Interventionss upine to sit; sit to supine Dzahnn-ns-Kyd [place] (Bed Mobility)moderate assist (50% patient effort); 2 person assist; verbal cues Ozl-ft-Wujphn [place] (Bed Mobility)verbal cues; 2 person assist; moderate assist (50% patient effort) Assistive Device (Bed Mobility)bed rails; draw sheet Transfer Assessment/Interventionss it to stand transfer; stand to sit transfer Comment, TransfersPt provided instruction verbally and demonstrated to pt for safe sit<->stand technique to promote completion of transfer. Pt required moderate verbal cues for proper hand placements, position of device and sequencing to complete sit<>stand. Sit-Stand Bristol (Transfers)moderate assist (50% patient effort); 2 person assist; verbal cues Sit-Stand Assistive Device (Transfers)gait belt; walker, front-wheeled Stand-Sit Bristol (Transfers)2 person assist; moderate assist (50% patient [...] people Activitywalker; gait belt Activityfatigue ADL: BADL Assessment/Interventionto ileting; lower body dressing Bristol Level (Lower Body Dressing)dependent (less than 25% patient effort) Bristol Level (Toileting)dependent (less than 25% patient effort) Motor: Upper Extremity Range of Motion (Therapeutic Exercise)shoulder flexion/extension, bilateral; elbow flexion/extension, bilateral; forearm supination/pronation, bilateral; wrist flexion/extension, bilateral Hand (Therapeutic Exercise)finger flexion/extension, bilateral; thumb finger opposition, bilateral; hand bindery operator, bilateral Upper Extremity (Therapeutic Exercise)With verbal instruction [...] Static (Balance)fair balance Sitting, Dynamic (Balance)fair balance Nnd-ya-Ijsdf (Balance)fair balance Standing, Static (Balance)poor balance Standing, [...] Score11 Short Term Goals: Bed Mobility: Date [id number] Bed Mobility: Bristol Level Goalmaximum assist (25% patien (more content not included)... Normal [facility] Rehab Note-rn occupational health christopher 09-03-2022 Rehab Note-occupational therapist Rehab: Info: [...] date. Nurse unavailable on floor; updated via Doc Halo. Electronic Signatures: Ila Jacob (OT) (Signed 03-Sep-2022 13:46) Authored: Info Last Updated: 03-Sep-2022 13:46 by Ila Jacob (OT) Normal [facility] Rehab Note-physical aerodynamicist - co-treatment with OTon 09-03-2022 Rehab Note-physical aerodynamicist - co-treatment with OT Rehab: Info: Disciplinephysical licensed occupational therapy assistant; co-treatment with OT to enhance pt performance and safety Participated in performance of tx and documentation under the direct supervision of CI, student Prudencio Croft SPTA Mode of Treatmentphysical therapy; co-treatment Time IN15:05 Time OUT15:30 Total Treatment [id number] Patient in ... at end of sessionbed, 3 railings up; alarm on Communicated with ... at end of sessionbedside nurse; discussed pt's progress and current mobility as described in mobility section Patient Effortadequate Symptoms Noted During/After Treatmentfatigue Treatment Considerations/Commentste le, indwelling urethral catheter Patient Response to TreatmentRN Ok'd seeing pt with no stated issues in past 24 hours that would be contraindicated prior to pt participating in therapy. Patient had adequate sanjana to tx this date, agreeable to participate in therapy this date. In bed upon entry. Patient/Family/Caregiver Comments/Observationsvisi tors in room at start of tx Mobility/Tone: Bed Mobility Assessment/Interventionss upine to sit; sit to supine; scooting/bridging; bed mobility activities Bristol (Bed Mobility)2 person assist; set up; verbal cues; moderate assist (50% patient effort) Scoot/Bridge Bristol (Bed Mobility)2 person assist; set up; verbal cues; dependent (less than 25% patient effort) Mapbwn-ab-Zvz Bristol (Bed Mobility)moderate assist (50% patient effort); 2 person assist; verbal cues; set up Omk-ze-Nflsph [place] (Bed Mobility)verbal cues; set up; 2 person assist; moderate assist (50% patient effort) Assistive Device (Bed Mobility)bed rails; draw sheet Comment, Bed Mobilitypt able to complete bed mobility requiring Mod A-Max A and Vc for sequencing and usage of bed rails for advancing BLE to EOB. pt demo's ability to initiate BLE advancement to EOB sitting but unable to complete without assistance Transfer Assessment/Interventionss it to stand transfer; stand to sit transfer Comment, Transferspt able to complete trials with Mod A and Vc for sequencing, hand placement and CORDELIA under COG. pt demos with anterior lean upon standing. pt encourage to lateral shift to left with Mod A for placement of RLE under COG once standing Sit-Stand Bristol (Transfers)moderate assist (50% patient effort); 2 person assist; verbal cues; set up Sit-Stand Assistive Device (Transfers)gait belt; walker, front-wheeled Stand-Sit [place] (Transfers)2 person assist; moderate assist (50% patient effort); verbal cues; set up Stand-Sit Assistive Device (Transfers)gait belt; walker, front-wheeled Safety Issues Impacting Function (Mobility)impulsivity; safety precaution awareness; positioning of assistive device; judgment; sequencing abilities; ability to follow commands Impairments Impacting Function (Mobility)strength; postural/trunk control; balance; endurance/activity tolerance; grasp; motor control; coordination Motor: Sitting, Static (Balance)fair balance Sitting, Dynamic (Balance)fair balance Fco-xw-Reunf (Balance)fair balance Standing, Static (Balance)poor balance Standing, [...] Score10 Short Term Goals: Bed Mobility: Date [id number] Bed Mobility: [place] Level Goalminimum assist (75% patients effort) Bed Mobility: Time Frame for Goal2 wks Transfer: Established Transfer: Transfer Type Gmqoaym-mu-bpxwv/chair-to -bed; piw-ss-bdeut/hzxtm-jb-nmz Transfer: [place] Level Goalminimum assist (75% patients effort) Transfer: Assistive Device Goalrolling walker Transfer: Time Frame for Goal2 wks Gait: Established Gait: Bristol Level Goalmodified independent Gait: Assistive Device Goalrolling walker Gait: Distance Goalx 20ft Gait: Time Frame for Goal2 wks Education: Education - TopicImportance and benefits of antiembolic exercises DC Recommendations: Discharge Recommendation ( (more content not included)... Normal [facility] Renal Function Panelon 09-03 Albumin BCP dye [Mass/Vol] 3.3 g/dL below low threshold 3.4 - 5.0 [facility] Work Phone: Anion gap [Moles/Vol] 13 mmol/L 10 - 20 [facility] Work Phone: Calcium [Mass/Vol] 8.6 mg/dL 8.6 - 10.3 [facility] Work Phone: Chloride [Moles/Vol] 89 mmol/L below low threshold 98 - 107 [facility] Work Phone: CO2 [Moles/Vol] 31 mmol/L 21 - 32 [facility] Work Phone: Creatinine [Mass/Vol] 0.47 mg/dL below low threshold See Below [facility] Work Phone: Comment on above: Reference Range: 0.5 0 - 1.30 Glucose [Mass/Vol] 118 mg/dL above high threshold 74 - 99 [facility] Work Phone: Phosphate [Mass/Vol] 1.9 mg/dL below low threshold 2.5 - 4.9 [facility] Work Phone: Comment on above: The performance fransisca acteristics of phosphorus testing in heparinized plasma have been validated by the individual laboratory site where testing is performed. Testing on heparinized plasma is not approved by the FDA; however, such approval is not necessary. Potassium [Moles/Vol] 3.3 mmol/L below low threshold 3.5 - 5.3 [facility] Work Phone: Sodium [Moles/Vol] 130 mmol/L below low threshold 136 - 145 -[facility] Work Phone: Urea nitrogen [Mass/Vol] 8 mg/dL 6 - 23 [facility] Work Phone: Renal Function Panel >90 >90 [facility] Work Phone: Comment on above: CALCULATIONS OF ROSANA MATED GFR ARE PERFORMED USING THE 2020 CKD-EPI STUDY REFIT EQUATION WITHOUT THE RACE VARIABLE FOR THE IDMS-TRACEABLE CREATININE METHODS.https://jasn.asnjournals.org/content//A SN.6369718400 CBCon 09-02-2022 Erythrocyte distribution width (RBC) [Ratio] 15.0 % High 11.5 - 14.5 [facility] Comment on above: Performed By: #### M G #### [facility] [address] [place] [id number] Hematocrit (Bld) [Volume fraction] 30.2 % Low 41.0 - 52.0 [facility] Comment on above: Performed By: #### M G #### [facility] [address] [place] [address] Hemoglobin (Bld) [Mass/Vol] 10.7 g/dL Low 13.5 - 17.5 [facility] Comment on above: Performed By: #### M G #### [facility] [address] [place] [address] MCHC (RBC) [Mass/Vol] 35.4 g/dL Normal 32.0 - 36.0 [facility] Comment on above: Performed By: #### M G #### [facility] [address] [place] [address] MCV (RBC) [Entitic vol] 100 fL Normal 80 - 100 [facility] Comment on above: Performed By: #### M G #### [facility] [address] [place] [address] NUCLEATED RBC 0.2 /100 WBC Normal 0.0-0.0 [facility] Comment on above: Performed By: #### M G #### [facility] [address] [place] [address] Platelets (Bld) [#/Vol] 187 10*3/uL Normal 150 - 450 [facility] Comment on above: Performed By: #### M G #### [facility] [address] [place] [address] RBC 3.02 x10E12/L Low 4.50 - 5.90 [facility] Comment on above: Performed By: #### M G #### [facility] [address] [place] [address] WBC (Bld) [#/Vol] 9.1 10*3/uL Normal 4.4 - 11.3 [facility] Comment on above: Performed By: #### M G #### [facility] [address] [place] [address] Clinical Event Note-EGD resu ltson 09-02-2022 Clinical [...] Updated: 02-Sep-2022 14:47 by Matt Prince) Normal [facility] Consult-Podiatryon Consult-Podiatry Service: Service: Podiatry Consult: Consult requested by (Attending Name): Caesar Sal Reason: b/l LE skin changes History of Present Illness: HPI: CHRISTOS LYONS is a 77 year old Male with a past medical history of hypertension, hyperlipidemia, anemia, alcohol use disorder, BPH, anxiety, hypothyroidism, gouty arthritis who presented to [facility] complaining of worsening dysphagia to solid [...] Known Allergies: Objective: Objective Information: T PRBPMAPSpO2 [id number]/7194% Date/Time09/02 8: 8: 8: 8: 8:09 Range(36.5C - 37C ) (61 - 74 ) (16 - 17 ) (102 - 137 )/ (55 - 80 ) (93% - 96% ) Highest temp of 37 C was recorded at 09/01 19:51 Pain reported at 09/02 5:12: 0 = None ---- Intake and Output ----- Mn/Dy/[facility] Sep 02, 2022 6:00 [id number] Sep 01, 2022 10:00 [id number] Sep 01, 2022 2:00 [id number] The Intake and Output Totals for the last 24 hours are: [facility] [id number] ---Intake--- Enteral - Oral PO Fluid/Feed (oral): [...] intact w/o debris. Medications: Medications: Continuous Medications ------- 1. Lactated Ringers Infusion: 1000 mL IntraVenous Scheduled Medications ------- 1. Allopurinol: 300 mg Oral Every 24 Hours 2. Atorvastatin: 40 mg Oral Daily 3. Emollient Topical Cream: 1 application(s) Topical 3 Times a Day 4. Enoxaparin SubCutaneous: 40 mg SubCut (more content not included)... Normal [facility] Daily Progress Note-Medicine on 09-02-2022 Daily Progress Note-Medicine Service: Medicine Subjective Data: CHRISTOS LYONS is a 77 year old Male who is Hospital Day # 6. On room air, no withdrawal symptoms. Afebrile. Diarrhea improving, had soft stool. Brother bedside. Pt overall feels better but mobility is very weak. Objective Data: Objective Information: T PRBPMAPSpO2 [id number]/7194% Date/Time09/02 8: 8: 8: 8: 8:09 Range(36.5C - 37C ) (61 - 74 ) (16 - 17 ) (102 - 137 )/ (55 - 80 ) (93% - 96% ) Highest temp of 37 C was recorded at 09/01 19:51 Pain reported at 09/02 5:12: 0 = None ---- Intake and Output ----- Mn/Dy/Year [facility]Out[facility] Sep 02, 2022 6:00 [id number] Sep 01, 2022 10:00 [id number] Sep 01, 2022 2:00 [id number] The Intake and Output Totals for the last 24 hours are: IntakeOutsan juan [facility] medical centerNet [id number] Physical Exam by System: Constitutional: no acute [...] / 131 L 90 L 7 / ------- Glucose -- 160 H K+ HCO3- Creat \ 3.2 [...] Last Updated: 02-Sep-2022 10:20 by Caesar Sal) [facility] Daily Progress Note-Nephrolo gyon 09-02-2022 Daily Progress Note-Nephrology Service: Nephrology Subjective Data: CHRISTOS LYONS is a 77 year old Male who is Hospital Day # 6. Seen and examined. Status post endoscopy. Resting comfortably bed. No acute events, offers no new complaints. Chart/labs/meds/notes/catalina ging/VS reviewed. Objective Data: Objective Information: T PRBPMAPSpO2 [id number]/6395% Date/Time09/02 16: 16: 16: 16: 16:25 Range(36.1C - 37C ) (61 - 74 ) (16 - 17 ) (102 - 141 )/ (55 - 80 ) (93% - 96% ) Highest temp of 37 C was recorded at 09/01 19:51 Pain reported at 09/02 15:13: 0 = None ---- Intake and Output ----- Mn/Dy/Year TimeIntakeOutputNet Sep 02, 2022 2:00 [id number] Sep 02, 2022 6:00 [id number] Sep 01, 2022 10:00 [id number] The Intake and Output Totals for the last 24 hours are: IntakeOutputNet [id number] Physical Exam by System: Constitutional: Well developed, [...] lower extremities bilaterally Medication: Medications: Continuous Medications ------- 1. Lactated Ringers Infusion: 1000 mL IntraVenous Scheduled Medications ------- 1. Allopurinol: 300 mg Oral Every 24 [...] Topical 3 Times a Day PRN Medications ------- 1. Dextrose 50% in Water Injectable: 25 [...] / 131 L 90 L 7 / ------- Glucose -- 160 H K+ HCO3- Creat \ 3.2 [...] that technique (more content not included)... Normal [facility] GLUCOSE-POCTon 09-02-2022 Glucose [Mass/Vol] 125 mg/dL High 74 - 99 [facility] Comment on above: Performed By: #### G ZOHREH #### [facility] [address] [place] [address] Glucose [Mass/Vol] 136 mg/dL High 74 - 99 [facility] Comment on above: Performed By: #### G ZOHREH #### [facility] [address] [place] [address] Laboratory - Chemistry and C hemistry - challengeon 09-02-2022 Glucose [Mass/Vol] 125 mg/dL above high threshold 74 - 99 [facility] Work Phone: Glucose [Mass/Vol] 136 mg/dL above high threshold 74 - 99 [facility] Work Phone: Laboratory - Hematology and Cell countson 09-02-2022 Erythrocyte distribution width (RBC) [Ratio] 15.0 % above high threshold See Below [facility] Work Phone: Comment on above: Reference Range: 11. 5 - 14.5 Hematocrit (Bld) [Volume fraction] 30.2 % below low threshold See Below [facility] Work Phone: Comment on above: Reference Range: 41. 0 - 52.0 Hemoglobin (Bld) [Mass/Vol] 10.7 g/dL below low threshold See Below [facility] Work Phone: Comment on above: Reference Range: 13. 5 - 17.5 MCHC (RBC) [Mass/Vol] 35.4 g/dL See Below [facility] Work Phone: Comment on above: Reference Range: 32. 0 - 36.0 MCV (RBC) [Entitic vol] 100 fL 80 - 100 [facility] Work Phone: Platelets (Bld) [#/Vol] 187 10*3/uL 150 - 450 [facility] [facility] Work Phone: RBC (Bld) [#/Vol] 3.02 {x10E12/L} below low threshold See Below [facility] Work Phone: Comment on above: Reference Range: 4.5 0 - 5.90 WBC (Bld) [#/Vol] 9.1 10*3/uL 4.4 - 11.3 [facility] Work Phone: No Panel Informationon 09-02 [facility] Work Phone: [email or web address] =[email or web address]} [facility] Work Phone: [facility] Work Phone: 0.2 {/100_WBC} 0.0-0.0 [facility] Work Phone: [facility] Work Phone: PHOSPHORUSon 09-02-2022 PHOSPHORUS Canceled Normal [facility] Comment on above: Order Comment: TEST PHOSPHORUS WAS CANCELLED, 09/02/2022 01:01 No specimen sent. Result Comment: The performance characteristics of phosphorus testing in heparinized plasma have been validated by the individual laboratory site where testing is performed. Testing on heparinized plasma is not approved by the FDA; however, such approval is not necessary. Performed By: #### G ZOHREH #### [facility] [address] [place] [address] RENAL FUNCTION PANELon 09-02 Albumin [Mass/Vol] 3.5 g/dL Normal 3.4 - 5.0 [facility] Comment on above: Performed By: #### M G #### [facility] [address] [place] [address] Anion gap [Moles/Vol] 13 mmol/L Normal 10 - 20 [facility] Comment on above: Performed By: #### M G #### [facility] [address] [place] [address] Calcium [Mass/Vol] 8.6 mg/dL Normal 8.6 - 10.3 [facility] Comment on above: Performed By: #### M G #### [facility] [address] [place] [address] Chloride [Moles/Vol] 90 mmol/L Low 98 - 107 [facility] Comment on above: Performed By: #### M G #### [facility] [address] [place] [address] Creatinine [Mass/Vol] 0.44 mg/dL Low 0.50 - 1.30 [facility] Comment on above: Performed By: #### M G #### [facility] [address] [place] [address] eGFR MALE >90 Normal >90 [facility] Comment on above: Result Comment: CALC ULATIONS OF ESTIMATED GFR ARE PERFORMED USING THE 2020 CKD-EPI STUDY REFIT EQUATION WITHOUT THE RACE VARIABLE FOR THE IDMS-TRACEABLE CREATININE METHODS. https://jasn.asnjournals.org/content/early//ASN.10764 13987 Performed By: #### M G #### [facility] [address] [place] [address] Glucose [Mass/Vol] 160 mg/dL High 74 - 99 [facility] Comment on above: Performed By: #### M G #### [facility] [address] [place] [address] HCO3 (Bld) [Moles/Vol] 31 mmol/L Normal 21 - 32 [facility] Comment on above: Performed By: #### M G #### [facility] [address] [place] [address] Phosphate [Mass/Vol] 1.6 mg/dL Low 2.5 - 4.9 [facility] Comment on above: Result Comment: The performance characteristics of phosphorus testing in heparinized plasma have been validated by the individual laboratory site where testing is performed. Testing on heparinized plasma is not approved by the FDA; however, such approval is not necessary. Performed By: #### M G #### [facility] [address] [place] [address] Potassium [Moles/Vol] 3.2 mmol/L Low 3.5 - 5.3 [facility] Comment on above: Performed By: #### M G #### [facility] [address] [place] [address] Sodium [Moles/Vol] 131 mmol/L Low 136 - 145 [facility] Comment on above: Performed By: #### M G #### [facility] [address] [place] [address] Urea nitrogen [Mass/Vol] 7 mg/dL Normal 6 - 23 [facility] Comment on above: Performed By: #### M G #### [facility] [address] [place] [address] Rehab Note-speech language p athologiston 09-02-2022 Rehab Note-speech language pathologist Rehab: Info: Disciplinespeech language pathologist Mode of Treatmentattempted Patient/Family/Caregiver Comments/ObservationsSpee ch therapy deferred at this time due to scheduled procedure. Short Term Goals: Bed Mobility: Date [id number] Bed Mobility: [place] Level Goalmaximum assist (25% patients effort) Bed Mobility: Physical Assist Level Goal1-person assist Bed Mobility: Time Frame for Goal2 wks Transfer: Established Transfer: Transfer Type Goaltoilet Transfer: [place] Level Goalmaximum assist (25% patients effort) Transfer: [...] Frame for Goal2 wks Grooming: Established Grooming: [place] Level Goalmodified independent Grooming: Physical Assist Level Goal1-person assist Grooming: Time Frame for Goal2 wks Upper Body Dressing: Established Upper Body Dressing: [place] Level Goalmoderate assist (50% patients effort) Upper Body Dressing: Physical Assist Level Goal1-person assist Upper Body Dressing: Time Frame for Goal2 wks Lower Body Dressing: Established [id number] Lower Body Dressing: [place] Level Goalmaximum assist (25% patients effort) Lower Body Dressing: Physical Assist Level Goal1-person assist Lower Body Dressing: Time Frame for Goal2 wks Toileting: Established [id number] Toileting: [place] Level Goalmaximum assist (25% patients effort) Toileting: Physical Assist Level Goal1-person assist Toileting: Time Frame for Goal2 wks Electronic Signatures: Wanda Manzano (BLANKET WEAVER) (Signed 02-Sep-2022 13:50) Authored: Info, Short Term Goals Last Updated: 02-Sep-2022 13:50 by Wanda Manzano (BLANKET WEAVER) Normal [facility] Renal Function Panelon 09-02 Albumin BCP dye [Mass/Vol] 3.5 g/dL 3.4 - 5.0 [facility] Work Phone: Anion gap [Moles/Vol] 13 mmol/L 10 - 20 [facility] Work Phone: Calcium [Mass/Vol] 8.6 mg/dL 8.6 - 10.3 [facility] Work Phone: Chloride [Moles/Vol] 90 mmol/L below low threshold 98 - 107 [facility] Work Phone: CO2 [Moles/Vol] 31 mmol/L 21 - 32 [facility] Work Phone: Creatinine [Mass/Vol] 0.44 mg/dL below low threshold See Below [facility] Work Phone: Comment on above: Reference Range: 0.5 0 - 1.30 Glucose [Mass/Vol] 160 mg/dL above high threshold 74 - 99 -[facility] Work Phone: Phosphate [Mass/Vol] 1.6 mg/dL below low threshold 2.5 - 4.9 [facility] Work Phone: Comment on above: The performance fransisca acteristics of phosphorus testing in heparinized plasma have been validated by the individual laboratory site where testing is performed. Testing on heparinized plasma is not approved by the FDA; however, such approval is not necessary. Potassium [Moles/Vol] 3.2 mmol/L below low threshold 3.5 - 5.3 -[facility] Work Phone: Sodium [Moles/Vol] 131 mmol/L below low threshold 136 - 145 [facility] Work Phone: Urea nitrogen [Mass/Vol] 7 mg/dL 6 - 23 [facility] Work Phone: Renal Function Panel >90 >90 [facility] Work Phone: Comment on above: CALCULATIONS OF ROSANA MATED GFR ARE PERFORMED USING THE 2020 CKD-EPI STUDY REFIT EQUATION WITHOUT THE RACE VARIABLE FOR THE IDMS-TRACEABLE CREATININE METHODS.https://jasn.asnjournals.org/content/early/A SN.5052040558 [facility] Cytologyon 09-02-2022 [facility] Cytology Patient Name CHRISTOS LYONS Date of Procedure: 09/02/2022 Date Reported: 09/06/2022 Date Received: 09/02/2022 Date of / Sex 1945 (Age: 77) / M Race: WHITE Submitting Physician: MATT PRINCE MD Other External # FINAL CYTOLOGICAL INTERPRETATION A. ESOPHAGEAL BRUSH: NO MALIGNANT CELLS IDENTIFIED Unremarkable squamous cells and rare columnar cells No fungal organisms identified Slide(s) initially screened by a Agent Contract Clerk at [facility], [address] [place] [id number] Electronically Signed Out By KERRY BRADFORD DO By the signature on this report, the individual or group listed as making the Final Interpretation/Diagnosis certifies that they have reviewed this case. Slide(s) initially screened by a Agent Contract Clerk at [place] Diagnostic interpretation performed at [facility] [address] [facility]. [place] [id number] Clinical History RULE OUT CASIE Source of Specimen A: ESOPHAGEAL BRUSH Specimen Submitted as: A: ESOPHAGEAL BRUSH Pap non-manager shipping ThinPrep slide Gross Description A. ESOPHAGEAL BRUSH: RECEIVED 1 [place] in 30cc OF COLORLESS,CLEAR CYTOLYT WITH PARTICLES. SPECIMEN SENT FOR ANALYSIS TO THE CYTOLOGY DEPARTMENT AT [facility]. [facility] Department of Pathology [address] [place] [address] Normal [facility] Comment on above: Performed By: #### C #### [facility] Cytology [address] [place] [address] Surgical Pathology Depar tmenton 09-02-2022 [facility] Surgical Pathology Department Name CHRISTOS LYONS Pathologist: POLO GRECO MD Date of Procedure: 09/02/2022 Date Received: 09/02/2022 Date Reported 09/06/2022 Submitting Physician: MATT PRINCE MD Location: [address] External # FINAL DIAGNOSIS A. GASTRIC ANTRUM AND BODY, BIOPSIES: --GASTRIC MUCOSA WITH NO SIGNIFICANT HISTOPATHOLOGICAL ABNORMALITIES. --HELICOBACTER IS NOT IDENTIFIED. Electronically Signed Out By POLO GREOC MD/[facility] By the signature on this report, the individual or group listed as making the Final Interpretation/Diagnosis certifies that they have reviewed this case. Diagnostic interpretation performed at [address] [place] [address] Clinical History: Rule out H.Pylori Specimens Submitted As: A: GASTRIC ANTRUM AND BODY,COLD BIOPSY Gross Description: Received in formalin, labeled with the patient's name and hospital number and A gastric antrum body, are two fragments of bai, soft tissue aggregating to 0.7 x 0.2 x 0.2 cm. The specimen is submitted in toto in one cassette. DMB dmb/09/03/2022 [facility] Department of Pathology [address] [place] [address] Normal [facility] Comment on above: Performed By: #### U HCS #### [facility] Surgical Pathology Department [address] [facility] [address] Upper GI endoscopyon 023 Upper GI endoscopy PATIENTNAME Patient Name: Christos Lyons EXAMDATE Procedure Date: 09/02/2022 2:24 PM PATIENTID PATIENTACCOUNTNUM PATIENTDOB Date of : 1945 PATIENTROOM Site: [place] [address] ETHNICITY Ethnicity: Not or RACE Race: White PROVDR Attending MD: Matt Prince MD, [id number] ENDOPROCEDURENAME Procedure: Upper GI endoscopy INDICATION Indications: [...] 0 hours 5 minutes 45 seconds Normal [facility] BASIC METABOLIC PANELon 04- Anion gap [Moles/Vol] 11 mmol/L Normal 10 - 20 [facility] Comment on above: Order Comment: SOD C ALLED RB TO LA NENA ROTHMAN, 09/01/2022 08:36 Performed By: #### V TB12 #### [facility] [address] [place] [address] Calcium [Mass/Vol] 7.3 mg/dL Low 8.6 - 10.3 [facility] Comment on above: Order Comment: SOD C ALLED RB TO LA NENA ROTHMAN, 09/01/2022 08:36 Performed By: #### V TB12 #### [facility] [address] [place] [address] Chloride [Moles/Vol] 80 mmol/L Low 98 - 107 [facility] Comment on above: Order Comment: SOD C ALLED RB TO LA NENA CLEANINGER, 09/01/2022 08:36 Performed By: #### V TB12 #### [facility] [address] [place] [address] Creatinine [Mass/Vol] 0.41 mg/dL Low 0.50 - 1.30 [facility] Comment on above: Order Comment: SOD C ALLED RB TO LA NENA ROTHMAN, 09/01/2022 08:36 Performed By: #### V TB12 #### [place] [address] [place] [address] eGFR MALE >90 Normal >90 [facility] Comment on above: Order Comment: SOD C ALLED RB TO LA NENA ROTHMAN, 09/01/2022 08:36 Result Comment: CALC ULATIONS OF ESTIMATED GFR ARE PERFORMED USING THE 2020 CKD-EPI STUDY REFIT EQUATION WITHOUT THE RACE VARIABLE FOR THE IDMS-TRACEABLE CREATININE METHODS. https://jasn.asnjournals.org/content/early//ASN.00412 83931 Performed By: #### V TB12 #### [facility] [address] [place] [address] Glucose [Mass/Vol] 112 mg/dL High 74 - 99 [facility] Comment on above: Order Comment: SOD C ALLED RB TO LA NENA ROTHMAN, 09/01/2022 08:36 Performed By: #### V TB12 #### [facility] [address] [place] [address] HCO3 (Bld) [Moles/Vol] 31 mmol/L Normal 21 - 32 [facility] Comment on above: Order Comment: SOD C ALLED RB TO LA NENA ROTHMAN, 09/01/2022 08:36 Performed By: #### V TB12 #### [facility] [address] [place] [address] Potassium [Moles/Vol] 3.2 mmol/L Low 3.5 - 5.3 [facility] Comment on above: Order Comment: SOD C ALLED RB TO LA NENA ROTHMAN, 09/01/2022 08:36 Performed By: #### V TB12 #### [facility] [address] [place] [address] Sodium [Moles/Vol] 119 mmol/L Critically low 136 - 145 [facility] Comment on above: Order Comment: SOD C ALLED RB TO LA NENA ROTHMAN, 09/01/2022 08:36 Result Comment: SOD CALLED RB TO LA NENA ROTHMAN, 09/01/2022 08:36 Performed By: #### V TB12 #### [facility] [address] [place] [address] Urea nitrogen [Mass/Vol] 8 mg/dL Normal 6 - 23 [facility] Comment on above: Order Comment: NEREIDA CORDERO RB TO LA NENA ROTHMAN, 09/01/2022 08:36 Performed By: #### V TB12 #### [facility] [address] [place] [id number] Daily Progress Note-Gastroen terologyon 09-01-2022 Daily Progress Note-Gastroenterology Service: Gastroenterology Subjective Data: CHRISTOS LYONS is a 77 year old Male who is Hospital Day # 5. Denies focal abd pain. Reports some loose stools. No rectal bleeding. Objective Data: Objective Information: T PRBPMAPSpO2 [id number]/7696% Date/Time09/01 8: 8: 8: 8: 8:14 Range(36.6C - 37.3C ) (63 - 70 ) (16 - 18 ) (101 - 129 )/ (58 - 76 ) (93% - 96% ) Highest temp of 37.3 C was recorded at 08/31 23:19 Pain reported at 09/01 4:21: sleeping ---- Intake and Output ----- Mn/Dy/Year TimeIntakeOutputNet Sep 01, 2022 6:00 [id number] Aug 31, 2022 10:00 [id number] The Intake and Output Totals for the last 24 hours are: IntakeOutputNet [id number] Physical Exam by System: Constitutional: Well developed, [...] +BS, no bruits Medication: Medications: Continuous Medications ------- 1. Lactated Ringers Infusion: 1000 mL IntraVenous Scheduled Medications ------- 1. Allopurinol: 300 mg Oral Every 24 [...] Topical 3 Times a Day PRN Medications ------- 1. LORazepam Injectable: 0.5 mg IntraVenous Push Every 2 Hours 2. LORazepam Injectable: 1 mg IntraVenous Push Every 2 Hours 3. LORazepam Injectable: 2 mg IntraVenous Push Every 2 Hours 4. Ondansetron Injectable: 4 mg IntraVenous Push Every 4 Hours Recent Lab Results: Results: BMP: 09/01/2022 06:57 NA+ Cl- BUN / 119 LL 80 L 8 / ------- Glucose -- 112 H K+ HCO3- Creat \ 3.2 [...] Updated: 01-Sep-2022 09:15 by Matt Prince) Normal [facility] Daily Progress Note-Medicine on 09-01-2022 Daily Progress Note-Medicine Service: Medicine Subjective Data: CHRISTOS LYONS is a 77 year old Male who is Hospital Day # 5. On room air, brother bedside. Pt tolerating PO intake. Reports diarrhea. Has condom cath. Afebrile. No overnight events reported. Objective Data: Objective Information: T PRBPMAPSpO2 Value36.75415980/7493% Date/Time09/01 11: 11: 11: 11: 11:55 Range(36.5C - 37.3C ) (61 - 70 ) (16 - 18 ) (101 - 129 )/ (58 - 76 ) (93% - 96% ) Highest temp of 37.3 C was recorded at 08/31 23:19 Pain reported at 09/01 11:09: 0 = None ---- Intake and Output ----- Mn/Dy/[facility] Sep 01, 2022 2:00 [id number] Sep 01, 2022 6:00 [id number] Aug 31, 2022 10:00 [id number] The Intake and Output Totals for the last 24 hours are: IntakeOutputNet [id number] Physical Exam by System: Constitutional: no acute distress Respiratory/Thorax: fairly CTAB Cardiovascular: regular rhythm, no murmurs Gastrointestinal: Nontender, non distended. Extremities: trace edema in legs Neurological: alert and oriented, moving all extremities Psychological: normal affect Skin: no rashes or lesions Recent Lab Results: Results: BMP: 09/01/2022 06:57 NA+ Cl- BUN / 119 LL 80 L 8 / ------- Glucose -- 112 H K+ HCO3- Creat \ 3.2 [...] Last Updated: 01-Sep-2022 17:04 by Caesar Sal) [facility] Daily Progress Note-Nephrolo gyon 09-01-2022 Daily Progress Note-Nephrology Service: Nephrology Subjective Data: CHRISTOS LYONS is a 77 year old Male who is Hospital Day # 5. Seen and examined. Working with therapy. No acute events, he does not offer new complaints. Chart/labs/meds/notes/catalina ging/VS reviewed. Objective Data: Objective Information: T PRBPMAPSpO2 Value36.70501791/7493% Date/Time09/01 11:5509/01 11: 11: 11:5509/01 11:55 Range(36.5C - 37.3C ) (61 - 70 ) (16 - 18 ) (101 - 129 )/ (58 - 76 ) (93% - 96% ) Highest temp of 37.3 C was recorded at 08/31 23:19 Pain reported at 09/01 11:09: 0 = None ---- Intake and Output ----- Mn/Dy/Year TimeIntakeOutputNet Sep 01, 2022 2:00 [id number] Sep 01, 2022 6:00 [id number] Aug 31, 2022 10:00 [id number] The Intake and Output Totals for the last 24 hours are: IntakeOutputNet [id number] Physical Exam by System: Constitutional: Well developed, [...] lower extremities bilaterally Medication: Medications: Continuous Medications ------- 1. Lactated Ringers Infusion: 1000 mL IntraVenous Scheduled Medications ------- 1. Allopurinol: 300 mg Oral Every 24 [...] Topical 3 Times a Day PRN Medications ------- 1. LORazepam Injectable: 0.5 mg IntraVenous Push Every 2 Hours 2. LORazepam Injectable: 1 mg IntraVenous Push Every 2 Hours 3. LORazepam Injectable: 2 mg IntraVenous Push Every 2 Hours 4. Ondansetron Injectable: 4 mg IntraVenous Push Every 4 Hours Recent Lab Results: Results: BMP: 09/01/2022 06:57 NA+ Cl- BUN / 119 LL 80 L 8 / ------- Glucose -- 112 H K+ HCO3- Creat \ 3.2 [...] Small slidin (more content not included)... Normal [facility] Laboratory - Chemistry and C hemistry - challengeon 09-01-2022 Anion gap [Moles/Vol] 11 mmol/L 10 - 20 [facility] Work Phone: Calcium [Mass/Vol] 7.3 mg/dL below low threshold 8.6 - 10.3 [facility] Work Phone: Chloride [Moles/Vol] 80 mmol/L below low threshold 98 - 107 [facility] Work Phone: CO2 [Moles/Vol] 31 mmol/L 21 - 32 [facility] Work Phone: Creatinine [Mass/Vol] 0.41 mg/dL below low threshold See Below [facility] Work Phone: Comment on above: Reference Range: 0.5 0 - 1.30 Glucose [Mass/Vol] 112 mg/dL above high threshold 74 - 99 [facility] Work Phone: Potassium [Moles/Vol] 3.2 mmol/L below low threshold 3.5 - 5.3 [facility] Work Phone: Sodium [Moles/Vol] 119 mmol/L Critically low 136 - 145 [facility] Work Phone: Comment on above: SOD CALLED RB TO ALL VAZQUEZ ROTHMAN, 09/01/2022 08:36 Urea nitrogen [Mass/Vol] 8 mg/dL 6 - 23 [facility] Work Phone: MAGNESIUMon 09-01-2022 Magnesium [Mass/Vol] 1.90 mg/dL Normal 1.60 - 2.40 [facility] Comment on above: Performed By: #### M G #### [facility] [address] [place] [address] Magnesium, Serumon Magnesium [Mass/Vol] 1.90 mg/dL See Below [facility] Work Phone: Comment on above: Reference Range: 1.6 0 - 2.40 No Panel Informationon 09-01 >90 >90 [facility] Work Phone: Comment on above: CALCULATIONS OF ROSANA MATED GFR ARE PERFORMED USING THE 2020 CKD-EPI STUDY REFIT EQUATION WITHOUT THE RACE VARIABLE FOR THE IDMS-TRACEABLE CREATININE METHODS.https://jasn.asnjournals.org/content/early/A SN.0712983144 Phosphorus, Serumon 09-02-19 23 Phosphate [Mass/Vol] Canceled [facility] Work Phone: Comment on above: The performance fransisca acteristics of phosphorus testing in heparinized plasma have been validated by the individual laboratory site where testing is performed. Testing on heparinized plasma is not approved by the FDA; however, such approval is not necessary. Rehab Olbo-ev-tptujoibsgp Rehab Gwgb-sl-vcsowsblc Rehab: Info: Disciplineoccupational therapist Mode of Treatmentco-treatment Time IN13:17 Time OUT13:45 Total Treatment [id number] Total Minutes Commentco-treatment with PT to maximize [...] Patient Effortadequate Symptoms Noted During/After Treatmentfatigue Treatment Considerations/CommentsPa tient chart review by therapist. Per handoff with [...] Status (Cognitive)confused; flat/blunted affect Mobility/Tone: Bed Mobility Assessment/Interventionss upine to sit; sit to supine; scooting/bridging Scoot/Bridge [place] (Bed Mobility)maximum assist (25% patient effort); 2 person assist; MAX A x2 for lateral scooting towards R side while seated EOB, required VCs for hand placement and anterior weight shifting Fpxjqy-vh-Xgm [place] (Bed Mobility)moderate assist (50% patient effort); 2 person assist; MOD A x2 for managing BLE to edge of bed and for lifting trunk, performed with HOB slightly elevated Ryx-hc-Rpyujs [place] (Bed Mobility)maximum assist (25% patient effort); 2 person assist; MAX A x2 for lifting BLE back to bed and for lowering/positioning trunk Transfer Assessment/Interventionss it to stand transfer; stand to sit transfer Sit-Stand [place] (Transfers)maximum assist (25% patient effort); 2 person assist; MAX A x2 to stand from EOB with FWW and arm n arm assist, VCs for hand placement Sit-Stand Assistive Device (Transfers)walker, front-wheeled Stand-Sit [place] (Transfers)maximum assist (25% patient effort); 2 person assist Stand-Sit Assistive Device (Transfers)walker, front-wheeled Comment, Gait/Stairs Trainingpt attempted lateral stepping towards R side with FWW however unsuccessful due to inadequate weight shifting and difficulty advancing BLE. Impairments Impacting Function (Mobility)balance; endurance/activity tolerance; strength; postural/trunk control ADL: BADL Assessment/Interventionlo wer body dressing; toileting [place] Level (Lower Body Dressing)dependent (less than 25% patient effort) Comment (Lower Body Dressing)Total A for donning yoandy socks due to fatigue and decreased postural strength [place] Level (Toileting)dependent (less than 25% patient effort); 2 person assist Comment (Toileting)pt with bowel incontinence once seated EOB. pt stood with FWW (MAX A x2) while other helper assisted with posterior hygiene and changing of chux. pt stood for ~5 minutes total for thoroughness of hygiene. Impairments, BADL Safety/Performanceenduran ce/activity tolerance; balance; strength; trunk/postural control Motor: Sitting, Static (Balance)fair balance CGA once seated EOB, pt with heavy UE reliance for stability Sitting, Dynamic (Balance)fair - Upm-wh-Srkta (Balance)poor balance MAX A x2 stand Standing, [...] Score11 Short Term Goals: Bed Mobility: Date [id number] Bed Mobility: [place] Level Goalmaximum assist (25% patients effort) Bed Mobility: Physical Assist Level Goal1-person assist Bed Mobility: Time Frame for Goal2 wks Transfer: Established [id number] Transfer: Transfer Type Goaltoilet Transfer: [place] Level Goalmaximum assist (25% patients effort) Transfer: Physica (more content not included)... Normal [facility] Rehab Note-physical aerodynamicist - Co-treat with OT magdiel 09-01-2022 Rehab Note-physical aerodynamicist - Co-treat with OT to Rehab: Info: Disciplinephysical licensed occupational therapy assistant; Co-treat with OT to maximize patient participation and safty Participated in performance of tx and documentation under the direct supervision of CI, student Prudencio WINN Mode of Treatmentphysical therapy; co-treatment Time IN13:17 Time OUT13:45 Total Treatment [id number] Patient in ... at end of sessionbed, 3 railings up; alarm on Communicated with ... at end of sessionbedside nurse; discussed pt's progress and current mobility as described in mobility section Patient Effortadequate Symptoms Noted During/After Treatmentfatigue Treatment Considerations/Commentste le, indwelling urethral catheter Patient Response to TreatmentRN Ok'd seeing pt with no stated issues in past 24 hours that would be contraindicated prior to pt participating in therapy. Patient had adequate sanjana to tx this date, agreeable to participate in therapy this date. In bed upon entry. Patient/Family/Caregiver Comments/Observationsvisi tor in room at start of tx Mobility/Tone: Bed Mobility Assessment/Interventionss upine to sit; sit to supine; scooting/bridging; bed mobility activities Bristol (Bed Mobility)maximum assist (25% patient effort); 2 person assist; set up; verbal cues Scoot/Bridge Bristol (Bed Mobility)maximum assist (25% patient effort); 2 person assist; set up; verbal cues Lafhwh-mx-Sdg Bristol (Bed Mobility)moderate assist (50% patient effort); 2 person assist; verbal cues; set up Cgk-mq-Faoper Bristol (Bed Mobility)verbal cues; set up; maximum assist (25% patient effort); 2 person assist Assistive Device (Bed Mobility)bed rails; draw sheet Comment, Bed Mobilitypt able to complete bed mobility requiring Mod A-Max A and Vc for sequencing and usage of bed rails for advancing BLE to EOB. pt demo's ability to initiate BLE movement for EOB sitting but unable to complete without assistance. Transfer Assessment/Interventionss it to stand transfer; stand to sit transfer Comment, Transferspt able to complete trials with Mod A and Vc for sequencing, hand placement and CORDELIA under COG. pt demos with anterior lean upon standing. Sit-Stand Bristol (Transfers)moderate assist (50% patient effort); 2 person assist; verbal cues; set up Sit-Stand Assistive Device (Transfers)gait belt; walker, front-wheeled Stand-Sit Bristol (Transfers)2 person assist; moderate assist (50% patient effort); verbal cues; set up Stand-Sit Assistive Device (Transfers)gait belt; walker, front-wheeled Safety Issues Impacting Function (Mobility)impulsivity; safety precaution awareness; positioning of assistive device; judgment; sequencing abilities Impairments Impacting Function (Mobility)strength; postural/trunk control; balance; endurance/activity tolerance; grasp; motor control Motor: Sitting, Static (Balance)fair balance Sitting, Dynamic (Balance)fair balance Xeg-gr-Bycgp (Balance)fair balance Standing, Static (Balance)poor balance Standing, [...] Score10 Short Term Goals: Bed Mobility: Date [id number] Bed Mobility: Bristol Level Goalminimum assist (75% patients effort) Bed Mobility: Time Frame for Goal2 wks Transfer: Established [id number] Transfer: Transfer Type Vsrqvvr-kj-rclxq/chair-to -bed; qsu-vu-vapml/thqvi-ig-ssk Transfer: Bristol Level Goalminimum assist (75% patients effort) Transfer: Assistive Device Goalrolling walker Transfer: Time Frame for Goal2 wks Gait: Established [id number] Gait: Bristol Level Goalmodified independent Gait: Assistive Device Goalrolling [...] Recommendations Jason (more content not included)... Normal [facility] Rehab Vfei-pflnbh-jewuqhnl p athologyon 09-01-2022 Rehab Hjcs-iftanv-pxkqagim pathology Rehab: Info: Disciplinespeech language pathologist Mode of Treatmentspeech-language pathology Time IN12:30 Time OUT13:00 Total Treatment [id number] Patient Effortexcellent Patient Response to TreatmentPt doing much better overall. Pt intake has appeared to return to normal. Pt continues to have a fear of something being wrong with his throat or esophagus and is still eager to have the EGD to confirm. Communicate/Swallow: BLANKET WEAVER Diet RecommendationsRegular BLANKET WEAVER Liquid Consistency RecommendationsThin 0 (Regular thin) Recommended Feeding/Eating Techniques (Swallow Eval)feed upright in 90 degree position& small sips/bites Swallow Assessment/Intervention/T reatment OutcomePt demonstrating overall improvement with well being [...] speech therapy. Short Term Goals: Dysphagia/Swallow: Established [id number] Dysphagia/Swallow: Goal Details1. Pt will swallow the [...] therapy upon discharge Electronic Signatures: Wanda Manzano (BLANKET WEAVER) (Signed 01-Sep-2022 14:58) Authored: Info, Communicate/Swallow, Short Term Goals, Education, Outcome Summary, DC Recommendations Last Updated: 01-Sep-2022 14:58 by Wanda Manzano (BLANKET WEAVER) Normal [facility] STOOL PATHOGEN PCR PANELon 0 09-01-2022 CAMPYLOBACTER GP. Not detected Normal NOT DETECTED [facility] Comment on above: Performed By: #### M G #### [facility] [address] [place] [address] NOROVIRUS GI/GII Not detected Normal NOT DETECTED [facility] Comment on above: Performed By: #### M G #### [facility] [address] [place] [address] ROTAVIRUS A Not detected Normal NOT DETECTED [facility] Comment on above: Result Comment: The enteric [...] panel. Performed By: #### M G #### [facility] [address] [place] [id number] SALMONELLA SP. Not detected Normal NOT DETECTED [facility] Comment on above: Performed By: #### M G #### [facility] [address] [place] [address] SHIGA TOXIN 1 Not detected Normal NOT DETECTED [facility] Comment on above: Performed By: #### M G #### [facility] [address] [place] [address] SHIGA TOXIN 2 Not detected Normal NOT DETECTED [facility] Comment on above: Performed By: #### M G #### [facility] [address] [place] [address] SHIGELLA SP. Not detected Normal NOT DETECTED [facility] Comment on above: Performed By: #### M G #### [facility] [address] [place] [id number] VIBRIO GROUP Not detected Normal NOT DETECTED [facility] Comment on above: Performed By: #### M G #### [facility] [address] [place] [address] YERSINIA ENTEROCOLITICA Not detected Normal NOT DETECTED [facility] Comment on above: Performed By: #### M G #### [facility] [address] [place] [address] Lab Specimen Source Normal [facility] Comment on above: Performed By: #### M G #### [facility] [address] [place] [id number] CBCon 08-31-2022 Erythrocyte distribution width (RBC) [Ratio] 14.3 % Normal 11.5 - 14.5 [facility] Comment on above: Performed By: #### M G #### [facility] [address] [place] [id number] Hematocrit (Bld) [Volume fraction] 28.2 % Low 41.0 - 52.0 [facility] Comment on above: Performed By: #### M G #### [facility] [address] [place] [id number] Hemoglobin (Bld) [Mass/Vol] 10.1 g/dL Low 13.5 - 17.5 [facility] Comment on above: Performed By: #### M G #### [facility] [address] [place] [id number] MCHC (RBC) [Mass/Vol] 35.8 g/dL Normal 32.0 - 36.0 [facility] Comment on above: Performed By: #### M G #### [facility] [address] [place] [id number] MCV (RBC) [Entitic vol] 99 fL Normal 80 - 100 [facility] Comment on above: Performed By: #### M G #### [facility] [address] [place] [id number] Platelets (Bld) [#/Vol] 125 10*3/uL Low 150 - 450 [facility] Comment on above: Performed By: #### M G #### [facility] [address] [place] [id number] RBC 2.86 x10E12/L Low 4.50 - 5.90 [facility] Comment on above: Performed By: #### M G #### [facility] [address] [place] [id number] WBC (Bld) [#/Vol] 7.5 10*3/uL Normal 4.4 - 11.3 [facility] Comment on above: Performed By: #### M G #### [facility] [address] [place] [id number] COMPREHENSIVE PANELon 2022 Albumin [Mass/Vol] 3.2 g/dL Low 3.4 - 5.0 [facility] Comment on above: Performed By: #### M G #### [facility] [address] [place] [address] ALP [Catalytic activity/Vol] 162 U/L High 33 - 136 [facility] Comment on above: Performed By: #### M G #### [facility] [address] [place] [address] ALT [Catalytic activity/Vol] 49 U/L Normal 10 - 52 [facility] Comment on above: Result Comment: Raysa ents treated with Sulfasalazine may generate falsely decreased results for ALT. Performed By: #### M G #### [facility] [address] [place] [address] Anion gap [Moles/Vol] 11 mmol/L Normal 10 - 20 [facility] Comment on above: Performed By: #### M G #### [facility] [address] [place] [address] AST [Catalytic activity/Vol] 144 U/L High 9 - 39 [facility] Comment on above: Performed By: #### M G #### [facility] [address] [place] [address] Bilirubin [Mass/Vol] 2.9 mg/dL High 0.0 - 1.2 [facility] Comment on above: Performed By: #### M G #### [facility] [address] [place] [address] Calcium [Mass/Vol] 7.5 mg/dL Low 8.6 - 10.3 [facility] Comment on above: Performed By: #### M G #### [facility] [address] [place] [address] Chloride [Moles/Vol] 81 mmol/L Low 98 - 107 [facility] Comment on above: Performed By: #### M G #### [facility] [address] [place] [address] Creatinine [Mass/Vol] 0.39 mg/dL Low 0.50 - 1.30 [facility] Comment on above: Performed By: #### M G #### [facility] [address] [place] [address] eGFR MALE >90 Normal >90 [facility] Comment on above: Result Comment: CALC ULATIONS OF ESTIMATED GFR ARE PERFORMED USING THE 2020 CKD-EPI STUDY REFIT EQUATION WITHOUT THE RACE VARIABLE FOR THE IDMS-TRACEABLE CREATININE METHODS. https://jasn.asnjournals.org/content/early//ASN.45116 74945 Performed By: #### M G #### [facility] [address] [place] [address] Glucose [Mass/Vol] 105 mg/dL High 74 - 99 [facility] Comment on above: Performed By: #### M G #### [facility] [address] [place] [address] HCO3 (Bld) [Moles/Vol] 32 mmol/L Normal 21 - 32 [facility] Comment on above: Performed By: #### M G #### [facility] [address] [place] [address] Potassium [Moles/Vol] 3.2 mmol/L Low 3.5 - 5.3 [facility] Comment on above: Performed By: #### M G #### [facility] [address] [place] [address] Protein [Mass/Vol] 5.5 g/dL Low 6.4 - 8.2 [facility] Comment on above: Performed By: #### M G #### [facility] [address] [place] [address] Sodium [Moles/Vol] 121 mmol/L Low 136 - 145 [facility] Comment on above: Performed By: #### M G #### [facility] [address] [place] [address] Urea nitrogen [Mass/Vol] 7 mg/dL Normal 6 - 23 [facility] Comment on above: Performed By: #### M G #### [facility] [address] [place] [address] Daily Progress Note-Gastroen yariologyon 08-31-2022 Daily Progress Note-Gastroenterology Consult Type: subsequent visit/care Service: Gastroenterology Subjective Data: CHRISTOS LYONS is a 77 year old Male who is Hospital Day # 4. sodium is 121. c/o pain from arthritis. Overnight Events: Patient had an uneventful night. Objective Data: Objective Information: T PRBPMAPSpO2 [id number]/5896% Date/Time08/31 8: 8: 8: 8: 8:38 Range(36.3C [...] and oriented x3 Medication: Medications: Continuous Medications ------- 1. Lactated Ringers Infusion: 1000 mL IntraVenous Scheduled Medications ------- 1. Allopurinol: 300 mg Oral Every 24 [...] Topical 3 Times a Day PRN Medications ------- 1. LORazepam Injectable: 0.5 mg IntraVenous Push [...] Lipid Panel, (more content not included)... Normal [facility] Daily Progress Note-Medicine on 08-31-2022 Daily Progress Note-Medicine Service: Medicine Subjective Data: CHRISTOS LYONS is a 77 year old Male who is Hospital Day # 4. Getting more pain in his legs. Abd distension going down. Still with loose stools. Objective Data: Objective Information: T PRBPMAPSpO2 [id number]/5896% Date/Time08/31 8: 8: 8: 8: 8:38 Range(36.3C [...] / 121 L 81 L 7 / ------- Glucose -- 105 H K+ HCO3- Creat \ 3.2 [...] Updated: 31-Aug-2022 13:38 by Miles Ahn) Normal [facility] Daily Progress Note-Nephrolo gyon 08-31-2022 Daily Progress Note-Nephrology Service: Nephrology Subjective Data: CHRISTOS LYONS is a 77 year old Male who is Hospital Day # 4. Seen and examined. No acute events, he does not offer new complaints. Chart/labs/meds/notes/catalina ging/VS reviewed. Objective Data: Objective Information: T PRBPMAPSpO2 Value36.20986450/5896% Date/Time08/31 8: 8: 8: 8: 8:38 Range(36.3C - 36.8C ) (64 - 69 ) (18 - 18 ) (101 - 119 )/ (54 - 72 ) (93% - 96% ) Pain reported at 08/31 15:07: 0 = None ---- Intake and Output ----- Mn/Dy/Year TimeIntakeOutputNet Aug 30, 2022 10:00 [id number] The Intake and Output Totals for the last 24 hours are: IntakeOutputNet [id number] Physical Exam by System: Constitutional: Well developed, [...] lower extremities bilaterally Medication: Medications: Continuous Medications ------- 1. Lactated Ringers Infusion: 1000 mL IntraVenous Scheduled Medications ------- 1. Allopurinol: 300 mg Oral Every 24 [...] Topical 3 Times a Day PRN Medications ------- 1. LORazepam Injectable: 0.5 mg IntraVenous Push [...] / 121 L 81 L 7 / ------- Glucose -- 105 H K+ HCO3- Creat \ 3.2 [...] suggesting ref (more content not included)... Normal [facility] Daily Progress Note-Pulmonol asia 08-31-2022 Daily Progress [...] hyponatremia. Objective Data: Objective Information: T PRBPMAPSpO2 Value36.85841141/5896% Date/Time08/31 8: 8: 8: 8: 8:38 Range(36.3C - 36.8C ) (64 - 69 ) (18 - 18 ) (101 - 119 )/ (54 - 72 ) (93% - 96% ) Pain reported at 08/30 22:12: 0 = None Physical exam: General-awake, alert and in no acute distress. Lungs-clear, without wheezes, rales or rhonchi. Heart-regular rate and rhythm. Abdomen-positive bowel sounds. Ixjoiuswugk-3-1+ lower extremity edema. Skin-venous stasis changes of the legs. Medication: Medications: Continuous Medications ------- 1. Lactated Ringers Infusion: 1000 mL IntraVenous Scheduled Medications ------- 1. Allopurinol: 300 mg Oral Every 24 [...] Topical 3 Times a Day PRN Medications ------- 1. LORazepam Injectable: 0.5 mg IntraVenous Push Every 2 Hours 2. LORazepam Injectable: 1 mg IntraVenous Push Every 2 Hours 3. LORazepam Injectable: 2 mg IntraVenous Push Every 2 Hours 4. Ondansetron Injectable: 4 mg IntraVenous Push Every 4 Hours Conditional Medication Orders ------- 1. Perflutren Lipid Microsphere (Activated) 1.3 mL [...] Updated: 31-Aug-2022 10:30 by Khang Wagner) Normal [facility] EMR ADDONon 08-31-2022 ADDON CONFIRMATION REQUEST REC'D Normal [facility] Comment on above: Performed By: #### M G #### [facility] [place] [address] Echocardiogramon 08-31-2022 Echocardiography [facility] , [address] [place] [address] and TRANSTHORACIC ECHOCARDIOGRAM REPORT Patient Name: CHRISTOS LYONS Reading Physician: [id number] Giovanny Blood DO Study Date: 08/31/2022 Referring Physician: MILES AHN MRN/PID: [id number] PCP: Accession/Order#: [id number] Department Location: Date of : 1945 Fellow: Gender: M Nurse: Admit Date: 08/28/2022 Page Designer: Hunter Navarro RDCS Admission Status: Inpatient - Routine Additional Staff: Height: 178.00 cm CC Report to: Weight: 70.00 kg Study Type: Echocardiogram BSA: 1.87 m2 Blood Pressure: 115 /58 mmHg Diagnosis/ICD: R60.0-Localized edema Indication: Edema Procedure/CPT: Echo Complete w Full [id number] Patient History: Pertinent History: HLD, EtOH, HTN. [...] LA Area A2C: 16.6 cm2 LA [place] A4C: 5.1 cm LA [place] A2C: 5.0 cm LA Vol A4C: 42.8 [...] cm/s AORTA: Asc Ao Diam 4.72 cm [id number] Giovanny Blood DO Electronically signed on 08/31/2022 at 5:12:06 PM Final Normal [facility] FOLATE, SERUMon 08-31-2022 Folate [Mass/Vol] 5.6 ng/mL Normal >5.0 [facility] Comment on above: Result Comment: Low <3.4 Borderline 3.4-5.0 Normal >5.0 . Biotin interference may cause falsely elevated results. Patients taking a Biotin dose of up to 5 mg/day should refrain from taking Biotin for 24 hours before sample collection. Providers may contact their local laboratory for further information. Performed By: #### M G #### [facility] [address] [place] [address] Folate, Serumon 08-31-2022 Folate [Mass/Vol] 5.6 ng/mL >5.0 [facility] Work Phone: Comment on above: Low [...] g/dL below low threshold 3.4 - 5.0 [facility] Work Phone: ALP [Catalytic activity/Vol] 162 U/L above high threshold 33 - 136 [facility] [place] Work Phone: ALT With P-5'-P [Catalytic activity/Vol] 49 U/L 10 - 52 [facility] Work Phone: Comment on above: Patients treated wit h Sulfasalazine may generate falsely decreased results for ALT. Anion gap [Moles/Vol] 11 mmol/L 10 - [address] [facility] [place] Work Phone: AST With P-5'-P [Catalytic activity/Vol] 144 U/L above high threshold 9 - 39 [facility] Work Phone: Bilirubin [Mass/Vol] 2.9 mg/dL above high threshold 0.0 - 1.2 [facility] Work Phone: Calcium [Mass/Vol] 7.5 mg/dL below low threshold 8.6 - 10.3 [facility] Work Phone: Chloride [Moles/Vol] 81 mmol/L below low threshold 98 - 107 [facility] [place] Work Phone: CO2 [Moles/Vol] 32 mmol/L 21 - 32 [facility] Work Phone: Creatinine [Mass/Vol] 0.39 mg/dL below low threshold See Below [facility] [place] Work Phone: Comment on above: Reference Range: 0.5 0 - 1.30 Glucose [Mass/Vol] 105 mg/dL above high threshold 74 - 99 [facility] [place] Work Phone: Potassium [Moles/Vol] 3.2 mmol/L below low threshold 3.5 - 5.3 [facility] Work Phone: Protein [Mass/Vol] 5.5 g/dL below low threshold 6.4 - 8.2 [facility] Work Phone: Sodium [Moles/Vol] 121 mmol/L below low threshold 136 - 145 [facility] Work Phone: Urea nitrogen [Mass/Vol] 7 mg/dL 6 - 23 [facility] Work Phone: Laboratory - Hematology and Cell countson 08-31-2022 Erythrocyte distribution width (RBC) [Ratio] 14.3 % See Below [facility] Work Phone: Comment on above: Reference Range: 11. 5 - 14.5 Hematocrit (Bld) [Volume fraction] 28.2 % below low threshold See Below [facility] Work Phone: Comment on above: Reference Range: 41. 0 - 52.0 Hemoglobin (Bld) [Mass/Vol] 10.1 g/dL below low threshold See Below [facility] Work Phone: Comment on above: Reference Range: 13. 5 - 17.5 MCHC (RBC) [Mass/Vol] 35.8 g/dL See Below [facility] Work Phone: Comment on above: Reference Range: 32. 0 - 36.0 MCV (RBC) [Entitic vol] 99 fL 80 - 100 [facility] Work Phone: Platelets (Bld) [#/Vol] 125 10*3/uL below low threshold 150 - 450 [facility] Work Phone: RBC (Bld) [#/Vol] 2.86 {x10E12/L} below low threshold See Below [facility] Work Phone: Comment on above: Reference Range: 4.5 0 - 5.90 WBC (Bld) [#/Vol] 7.5 10*3/uL 4.4 - 11.3 [facility] Work Phone: No Panel Informationon 08-31 >90 >90 [facility] Work Phone: Comment on above: CALCULATIONS OF ROSANA MATED GFR ARE PERFORMED USING THE 2020 CKD-EPI STUDY REFIT EQUATION WITHOUT THE RACE VARIABLE FOR THE IDMS-TRACEABLE CREATININE METHODS.https://jasn.asnjournals.org/content/early/A SN.8967852357 Nutrition Therapy-Assessment on 08-31-2022 Nutrition Therapy-Assessment Assessment Subjective/Objective: Note Type: Assessment Note Authored by: Registered Dietitian Image Assembler Nutrition Note: The patient is a 77 year old Male visit reason: failure to thrive. Nutrition Consult: MST Per H&P: CHRISTOS LYONS is a 77 year old Male with a past medical history of hypertension, hyperlipidemia, anemia, alcohol use disorder, BPH, anxiety, hypothyroidism, gouty arthritis who presented to [facility] complaining of worsening dysphagia to solid [...] laboratory results: Complete Blood Count Trending View [id number] 06:09:00 30-Aug-2022 06:27:00 White Blood Cell Count7.5 7.0 Red Blood Cell Count2.86 L 2.93 L HGB10.1 L 10.2 L HCT28.2 L 28.4 L MCV99 97 MCHC35.8 35.9 HAL655 L 118 L RDW-CV14.3 13.9 Comprehensive Metabolic [...] 240 All ranges are based on [facility] HDL Cholesterol, Serum 62.4 . AGE VERY [...] 1.70 N (more content not included)... Normal [facility] PHOSPHORUSon 08-31-2022 Phosphate [Mass/Vol] 1.9 mg/dL Low 2.5 - 4.9 [facility] Comment on above: Result Comment: The performance characteristics of phosphorus testing in heparinized plasma have been validated by the individual laboratory site where testing is performed. Testing on heparinized plasma is not approved by the FDA; however, such approval is not necessary. Performed By: #### P HOS ####[facility] [address] [place] [address] Phosphorus, Serumon 09-01-19 23 Phosphate [Mass/Vol] 1.9 mg/dL below low threshold 2.5 - 4.9 [facility] Work Phone: Comment on above: The performance fransisca acteristics of phosphorus testing in heparinized plasma have been validated by the individual laboratory site where testing is performed. Testing on heparinized plasma is not approved by the FDA; however, such approval is not necessary. STOOL PATHOGEN PCR PANELon 0 08-31-2022 Campylobacter sp DNA.diarrheagenic NEVIN+probe Ql (Stl) Not detected See Below [facility] Work Phone: Comment on above: Reference Range: NOT DETECTED E. coli stx1 gene NEVIN+probe Ql (Unsp spec) Not detected See Below [facility] Work Phone: Comment on above: Reference Range: NOT DETECTED E. coli stx2 gene NEVIN+probe Ql (Unsp spec) Not detected See Below [facility] Work Phone: Comment on above: Reference Range: NOT DETECTED Norovirus genogroup I and II RNA NEVIN+probe Nom (Stl) Not detected See Below [facility] Work Phone: Comment on above: Reference Range: NOT DETECTED Rotavirus RNA NEVIN+probe Nom (Stl) Not detected See Below [facility] Work Phone: Comment on above: Reference [...] spec) Not detected See Below [facility] Work Phone: Comment on above: Reference Range: NOT DETECTED Vibrio sp DNA NEVIN+probe Nom (Unsp spec) Not detected See Below [facility] Work Phone: Comment on above: Reference Range: NOT DETECTED Yersinia sp DNA NEVIN+probe Nom (Unsp spec) Not detected See Below [facility] Work Phone: Comment on above: SOURCE: Reference Ra nge: NOT DETECTED STOOL PATHOGEN PCR PANEL Not detected See Below [facility] Work Phone: Comment on above: Reference Range: NOT DETECTED VITAMIN B12on 08-31-2022 Cobalamin (Vitamin B12) [Mass/Vol] 556 pg/mL Normal 211 - 911 [facility] Comment on above: Performed By: #### V TB12 #### [facility] [address] [place] [place] [address] Vitamin B12, Serumon 023 Cobalamin (Vitamin B12) [Mass/Vol] 556 pg/mL 211 - 911 [facility] Work Phone: BASIC METABOLIC PANELon 08-08 Anion gap [Moles/Vol] 11 mmol/L Normal 10 - 20 [facility] Comment on above: Order Comment: SOD C ALLED RB TO IVY SAMPRAM, 08/30/2022 08:10 Performed By: #### G ZOHREH #### [facility] [address] [place] [address] Calcium [Mass/Vol] 7.7 mg/dL Low 8.6 - 10.3 [facility] Comment on above: Order Comment: SOD C ALLED RB TO IVY SAMPRAM, 08/30/2022 08:10 Performed By: #### G ZOHREH #### [facility] [address] [place] [address] Chloride [Moles/Vol] 80 mmol/L Low 98 - 107 [facility] Comment on above: Order Comment: SOD C ALLED RB TO IVY SAMPRAM, 08/30/2022 08:10 Performed By: #### G ZOHREH #### [facility] [address] [place] [address] Creatinine [Mass/Vol] 0.47 mg/dL Low 0.50 - 1.30 [facility] Comment on above: Order Comment: SOD C ALLED RB TO IVY SAMPRAM, 08/30/2022 08:10 Performed By: #### G ZOHREH #### [facility] [address] [place] [address] eGFR MALE >90 Normal >90 [facility] Comment on above: Order Comment: SOD C ALLED RB TO IVY SAMPRAM, 08/30/2022 08:10 Result Comment: CALC ULATIONS OF ESTIMATED GFR ARE PERFORMED USING THE 2020 CKD-EPI STUDY REFIT EQUATION WITHOUT THE RACE VARIABLE FOR THE IDMS-TRACEABLE CREATININE METHODS. https://jasn.asnjournals.org/content/early//ASN.00518 27301 Performed By: #### G ZOHREH #### [facility] [address] [place] [address] Glucose [Mass/Vol] 109 mg/dL High 74 - 99 [facility] Comment on above: Order Comment: SOD C ALLED RB TO IVY SAMPRAM, 08/30/2022 08:10 Performed By: #### G ZOHREH #### [facility] [address] [place] [address] HCO3 (Bld) [Moles/Vol] 31 mmol/L Normal 21 - 32 [facility] Comment on above: Order Comment: SOD C ALLED RB TO IVY SAMPRAM, 08/30/2022 08:10 Performed By: #### G ZOHREH #### [facility] [address] [place] [address] Potassium [Moles/Vol] 3.2 mmol/L Low 3.5 - 5.3 [facility] Comment on above: Order Comment: SOD C ALLED RB TO IVY SAMPRAM, 08/30/2022 08:10 Performed By: #### G ZOHREH #### [facility] [address] [place] [address] Sodium [Moles/Vol] 119 mmol/L Critically low 136 - 145 [facility] Comment on above: Order Comment: SOD C ALLED RB TO IVY SAMPRAM, 08/30/2022 08:10 Result Comment: SOD CALLED RB TO IVY SAMPRAM, 08/30/2022 08:10 Performed By: #### G ZOHREH #### [facility] [address] [place] [id number] Urea nitrogen [Mass/Vol] 9 mg/dL Normal 6 - 23 [facility] Comment on above: Order Comment: SOD C ALLED RB TO IVY SAMPRAM, 08/30/2022 08:10 Performed By: #### G ZOHREH #### [facility] [address] [place] [address] C Reactive Protein, Serumon 08-30-2022 CRP [Mass/Vol] 12.67 mg/dL Abnormal [facility] Work Phone: Comment on above: REF VALUE< 1.00 C-REACTIVE PROTEINon 023 C-REACTIVE PROTEIN 12.67 mg/dL Abnormal [facility] Comment on above: Result Comment: REF VALUE < 1.00 Performed By: #### C RP ####[facility] [id number] [place] [address] CBCon 08-30-2022 Platelets (Bld) [#/Vol] 118 10*3/uL Low 150 - 450 [facility] Comment on above: Result Comment: Plat elet count may be higher than reported due to presence of Platelet Clumps. Performed By: #### R ENAL #### [facility] [address] [place] [id number] Erythrocyte distribution width (RBC) [Ratio] 13.9 % Normal 11.5 - 14.5 [facility] Comment on above: Performed By: #### R ENAL #### [facility] [address] [place] [id number] Hematocrit (Bld) [Volume fraction] 28.4 % Low 41.0 - 52.0 [facility] Comment on above: Performed By: #### R ENAL #### [facility] [address] [place] [id number] Hemoglobin (Bld) [Mass/Vol] 10.2 g/dL Low 13.5 - 17.5 [facility] Comment on above: Performed By: #### R ENAL #### [facility] [address] [place] [id number] MCHC (RBC) [Mass/Vol] 35.9 g/dL Normal 32.0 - 36.0 [facility] Comment on above: Performed By: #### R ENAL #### [facility] [address] [place] [id number] MCV (RBC) [Entitic vol] 97 fL Normal 80 - 100 [facility] Comment on above: Performed By: #### R ENAL #### [facility] [address] [place] [id number] RBC 2.93 x10E12/L Low 4.50 - 5.90 [facility] Comment on above: Performed By: #### R ENAL #### [facility] [address] [place] [id number] WBC (Bld) [#/Vol] 7.0 10*3/uL Normal 4.4 - 11.3 [facility] Comment on above: Performed By: #### R ENAL #### [facility] [address] [place] [address] CT LOWER EXT WO CONTRASTon 0 08-30-2022 CT LOWER EXT WO CONTRAST Patient Name: CHRISTOS LYONS STUDY: CT LOWER EXT WO CONTRAST; Right; 08/30/2022 7:32 pm INDICATION: right knee pain . COMPARISON: Radiographs of the same day ACCESSION NUMBER(S): [id number] ORDERING CLINICIAN: MILES AHN TECHNIQUE: Noncontrast images [...] Electronically signed by: KHLOE LYLES MD Normal [facility] CT Low Extremity without Con traston 08-30-2022 CT Lower extremity WO contrast Normal [facility] Work Phone: Daily Progress Note-Gastroen terologyon 08-30-2022 Daily Progress Note-Gastroenterology Service: Gastroenterology Subjective Data: CHRISTOS LYONS is a 77 year old Male who is Hospital Day # 3. Patient has ongoing dysphagia. Tolerating liquids/apple sauce. Objective Data: Objective Information: T PRBPMAPSpO2 [id number]/7195% Date/Time08/30 11: 11: 11: 11: 11:58 Range(36.2C [...] +BS, no bruits Medication: Medications: Continuous Medications ------- 1. Lactated Ringers Infusion: 1000 mL IntraVenous Scheduled Medications ------- 1. Allopurinol: 300 mg Oral Every 24 [...] Topical 3 Times a Day PRN Medications ------- 1. LORazepam Injectable: 0.5 mg IntraVenous Push Every 2 Hours 2. LORazepam Injectable: 1 mg IntraVenous Push Every 2 Hours 3. LORazepam Injectable: 2 mg IntraVenous Push Every 2 Hours 4. Ondansetron Injectable: 4 mg IntraVenous Push Every 4 Hours Conditional Medication Orders ------- 1. Perflutren Lipid Microsphere (Activated) 1.3 mL / NaCL 0.9% T.V. 10 mL Injectable: 0.5 mL IntraVenous Push Once Currently Suspended Medications ------- 1. Gabapentin: 300 mg Oral 2 Times a Day Recent Lab Results: Results: CBC: 08/30/2022 06:27 \ Hgb / \ 10.2 L / WBC Plt 7.0 118 L / Hct \ / 28.4 L \ RBC: 2.93 L MCV: 97 BMP: 08/30/2022 06:27 NA+ Cl- BUN / 119 LL 80 L 9 / ------- Glucose -- 109 H K+ HCO3- Creat \ 3.2 [...] extending about (more content not included)... Normal [facility] Daily Progress Note-Medicine on 08-30-2022 Daily Progress Note-Medicine Service: Medicine Subjective Data: CHRISTOS LYONS is a 77 year old Male who is Hospital Day # 3. Brother says he seems more sleepy today. He is having some looser stools. Objective Data: Objective Information: T PRBPMAPSpO2 [id number]/7195% Date/Time08/30 11: 11: 11: 11: 11:58 Range(36.2C [...] / 119 LL 80 L 9 / ------- Glucose -- 109 H K+ HCO3- Creat \ 3.2 [...] Updated: 30-Aug-2022 12:32 by Miles Ahn) Normal [facility] Daily Progress Note-Nephrolo gyon 08-30-2022 Daily Progress Note-Nephrology Service: Nephrology Subjective Data: CHRISTOS LYONS is a 77 year old Male who is Hospital Day # 3. Seen and examined. Sitting upright in bed. No acute events, he does not offer new complaints. Chart/labs/meds/notes/catalina ging/VS reviewed. Objective Data: Objective Information: T PRBPMAPSpO2 [id number]/7195% Date/Time4/24 11: 11: 11: 11: 11:58 Range(36.2C - [...] lower extremities bilaterally Medication: Medications: Continuous Medications ------- 1. Lactated Ringers Infusion: 1000 mL IntraVenous Scheduled Medications ------- 1. Allopurinol: 300 mg Oral Every 24 [...] Topical 3 Times a Day PRN Medications ------- 1. LORazepam Injectable: 0.5 mg IntraVenous Push Every 2 Hours 2. LORazepam Injectable: 1 mg IntraVenous Push Every 2 Hours 3. LORazepam Injectable: 2 mg IntraVenous Push Every 2 Hours 4. Ondansetron Injectable: 4 mg IntraVenous Push Every 4 Hours Conditional Medication Orders ------- 1. Perflutren Lipid Microsphere (Activated) 1.3 mL / NaCL 0.9% T.V. 10 mL Injectable: 0.5 mL IntraVenous Push Once Currently Suspended Medications ------- 1. Gabapentin: 300 mg Oral 2 Times a Day Recent Lab Results: Results: CBC: 08/30/2022 06:27 \ Hgb / \ 10.2 L / WBC Plt 7.0 118 L / Hct \ / 28.4 L \ RBC: 2.93 L MCV: 97 BMP: 08/30/2022 06:27 NA+ Cl- BUN / 119 LL 80 L 9 / ------- Glucose -- 109 H K+ HCO3- Creat \ 3.2 [...] PE detection. (more content not included)... Normal [facility] Daily Progress Note-Pulmonol [place] 08-30-2022 Daily Progress Note-Pulmonology Service: Pulmonology Subjective Data: CHRISTOS LYONS is a 77 year old Male who is Hospital Day # 3. S: Denies shortness of breath, pain or cough. On room air. EGD for today has been canceled. Objective Data: Objective Information: T PRBPMAPSpO2 [id number]/7196% Date/Time08/30 8: 8: 8: 8:014 8:01 Range(36.2C - 37.1C ) (64 - [...] fingers. Skin-no rashes. Medication: Medications: Continuous Medications ------- No continuous medications are active Scheduled Medications ------- 1. Allopurinol: 300 mg Oral Every 24 [...] Topical 3 Times a Day PRN Medications ------- 1. LORazepam Injectable: 0.5 mg IntraVenous Push Every 2 Hours 2. LORazepam Injectable: 1 mg IntraVenous Push Every 2 Hours 3. LORazepam Injectable: 2 mg IntraVenous Push Every 2 Hours 4. Ondansetron Injectable: 4 mg IntraVenous Push Every 4 Hours 5. oxyCODONE Immediate Release: 5 mg Oral Every 4 Hours Conditional Medication Orders ------- 1. Perflutren Lipid Microsphere (Activated) 1.3 mL / NaCL 0.9% T.V. 10 mL Injectable: 0.5 mL IntraVenous Push Once Recent Lab Results: Results: I have reviewed these laboratory results: Basic Metabolic Panel 30-Aug-2022 06:27:00 ResultValue Lab Comment: NEREIDA CALLED RB TO IVYChelsea MOHAN, 08/30/2022 08:10 [...] Updated: 30-Aug-2022 11:16 by Khang Wagner) Normal [facility] Discharge [id number] Discharge Profile2 Discharge Orders: Anticipated Discharge Date: Anticipated Discharge [id number] Anticipated Discharge Time09:08 DNAR: Code Status at Discharge: DNAR Was Extending the DNAR Status Following Discharge Discussed w/ Patient/Family: n/a- patient already has a completed DNR State Form [place] DNR State Form Status: DNR Comfort Care Arrest Activity: activity as tolerated. May shower. Diet: Dietlow sodium Fluid Restriction1.5L Labs 1: Lab Test(s)CBC, Comprehensive Metabolic Panel Date To Be Drawn09/06/2022 Fax Results Satya Maynard, #[phone] Gold Form Orders: Care Recommendation: I recommend that INPATIENT care is required at:Skilled Provider CertificationATTENDING: I certify that inpatient care is required at the level recommended above. To the best of my knowledge, all information provided about the individual is a true and accurate reflection of the individual's condition. Attending ProviderCaesar Sal Attending Provider [id number] Therapy Orders: Occupational Therapy OrdersEval and Treat ([facility]) Physical Therapy OrdersEval and Treat ([facility]) Provider Follow Up: Physician To Follow at Skilled/RehabAttending Physician at Skilled/Rehab Provider FINAL REVIEW of Orders: Final Review: Final Review of Medication Reconciliation and Orders Completedby Physician Reviewing ProviderCaesar Sal MD at 04-Sep-2022 09:12:18 Appointments: Follow-Up Appointment 01: Physician/Dept/Service. Malou Bowen - Pulmonary Scheduled Date/[id number] 08:[address] [address] Phone [phone] CommentsPlease wear a mask when entering the building. Please arrive 10-15 minutes early, bring photo ID, current list of medications & dosages, insurance cards and any copay that may apply. If unable to keep this appointment, please call to cancel at least 24 hrs prior to appointment. Follow-Up Appointment 02: Physician/Dept/Service. Nii Zavala; PCP, Dr Maynard CommentsOrder received after discharge Follow-Up Appointment 03: Physician/Dept/Elvis. Cy Maynard, Nephrology CommentsOrder received after discharge Gold Form - Nursing Summary: Special Treatments/Procedures (in past 14 days): Chemotherapyno Dialysisno IV Medicationno Oxygen Therapyno Transfusionsno Feverno Radiationno Ventilatorno Tracheostomyno Suctioningno Nutrition: Nutritional Statusfeeds self Sensory/Comfort: Visionadequate Hearingadequate Speechclear Painno Elimination: Bladderincontinent Bowelincontinent Last Bowel [id number] Safety: Siderailsyes Restraintsno Sitterno Medication/Hygiene/Mobili ty: Medication Administrationassist Bathingassist Dressingassist Bed Mobilityassist Wheelchairassist Transfersassist Ambulationassist Electronic Signatures: Taj Vasquez (PT ACC REP) (Signed 30-Aug-2022 16:14) Authored: Discharge Orders, Appointments, Gold Form - Hands And Dial Inspector Summary Ros Rowe (PT SVS REP) (Signed 07-Sep-2022 09:19) Authored: Discharge Orders, Appointments Caesar Sal) (Signed 04-Sep-2022 09:12) Authored: Discharge Orders, Gold Form Orders, Provider FINAL REVIEW of Orders, Appointments Alysa Douglas (RN) (Signed 04-Sep-2022 10:55) Authored: Discharge Orders, Gold Form - Nursing Summary Last Updated: 07-Sep-2022 09:19 by Ros Rowe (PT SVS REP) Normal [facility] HEMOGLOBIN A1Con 08-30-2022 Glucose [Mass/Vol] 134 mg/dL Normal [facility] Comment on above: Performed By: #### V TB12 #### [facility] [address] [place] [address] HbA1c (Bld) [Mass fraction] 6.3 % Abnormal [facility] Comment on above: Result Comment: Diag nosis of Diabetes-Adults Non-Diabetic: < or = 5.6% Increased risk for developing diabetes: 5.7-6.4% Diagnostic of diabetes: > or = 6.5% . Monitoring of Diabetes Age (y) Therapeutic Goal (%) Adults: >18 <7.0 Pediatrics: 13-18 <7.5 7-12 <8.0 0- 6 7.5-8.5 [place] [employer]. Diabetes Care 33(S1), May 2009. Performed By: #### V TB12 #### [facility] [address] [place] [address] HEPATIC FUNCTION PANELon Albumin [Mass/Vol] 3.3 g/dL Low 3.4 - 5.0 [facility] Comment on above: Performed By: #### V TB12 #### [facility] [address] [place] [address] ALP [Catalytic activity/Vol] 164 U/L High 33 - 136 [facility] Comment on above: Performed By: #### V TB12 #### [facility] [address] [place] [address] ALT [Catalytic activity/Vol] 47 U/L Normal 10 - 52 [facility] Comment on above: Result Comment: Raysa ents treated with Sulfasalazine may generate falsely decreased results for ALT. Performed By: #### V TB12 #### [facility] [address] [place] [address] AST [Catalytic activity/Vol] 144 U/L High 9 - 39 [facility] Comment on above: Performed By: #### V TB12 #### [facility] [address] [place] [address] Bilirubin [Mass/Vol] 3.5 mg/dL High 0.0 - 1.2 [facility] Comment on above: Performed By: #### V TB12 #### [facility] [address] [place] [address] Bilirubin.indirect [Mass/Vol] 2.0 mg/dL High 0.0 - 0.3 [facility] Comment on above: Performed By: #### V TB12 #### [facility] [address] [place] [address] Protein [Mass/Vol] 5.8 g/dL Low 6.4 - 8.2 [facility] Comment on above: Performed By: #### V TB12 #### [facility] [address] [place] [address] HEPATITIS PANEL,ACUTE (HCFA) on 08-30-2022 HEPATITIS A AB-IGM Non-Reactive Normal NONREACTIVE [facility] Comment on above: Result Comment: Biot in interference may cause falsely decreased results. Patients taking a Biotin dose of up to 5 mg/day should refrain from taking Biotin for 24 hours before sample collection. Providers may contact their local laboratory for further information. Performed By: #### M G #### [facility] [address] [place] [id number] HEPATITIS B CORE AB,IGM Non-Reactive Normal NONREACTIVE [facility] Comment on above: Result Comment: Resu lts from patients taking biotin supplements or receiving high-dose biotin therapy should be interpreted with caution due to possible interference with this test. Providers may contact their local laboratory for further information. Performed By: #### M G #### [facility] [address] [place] [address] HEPATITIS C AB Non-Reactive Normal NONREACTIVE [facility] Comment on above: Result Comment: Resu lts from patients taking biotin supplements or receiving high-dose biotin therapy should be interpreted with caution due to possible interference with this test. Providers may contact their local laboratory for further information. Performed By: #### M G #### [facility] [address] [place] [address] HEP.B SURFACE AG Non-Reactive Normal NONREACTIVE [facility] Comment on above: Result Comment: Biot in interference may cause falsely decreased results. Patients taking a Biotin dose of up to 5 mg/day should refrain from taking Biotin for 24 hours before sample collection. Providers may contact their local laboratory for further information. Performed By: #### M G #### [facility] [address] [place] [id number] Lab Specimen Source Normal [facility] Comment on above: Performed By: #### M G #### [facility] [address] [place] [address] Hemoglobin A1Con 08-30-2022 Glucose [Mass/Vol] 134 mg/dL [facility] Work Phone: HbA1c (Bld) [Mass fraction] 6.3 % Abnormal [facility] Work Phone: Comment on above: Diagnosis of Diabete s-Adults Non-Diabetic: < or = 5.6% Increased risk for developing diabetes: 5.7-6.4% Diagnostic of diabetes: > or = 6.5%. Monitoring of Diabetes Age (y) Therapeutic Goal (%) Adults: >18 <7.0 Pediatrics: 13-18 <7.5 7-12 <8.0 0- 6 7.5-8.5 [place] [employer]. Diabetes Care 33(S1), May 2009. Hepatic Function Panelon Albumin BCP dye [Mass/Vol] 3.3 g/dL below low threshold 3.4 - 5.0 [facility] Work Phone: ALP [Catalytic activity/Vol] 164 U/L above high threshold 33 - 136 [facility] Work Phone: ALT With P-5'-P [Catalytic activity/Vol] 47 U/L 10 - 52 [facility] Work Phone: Comment on above: Patients treated wit h Sulfasalazine may generate falsely decreased results for ALT. AST With P-5'-P [Catalytic activity/Vol] 144 U/L above high threshold 9 - 39 [facility] Work Phone: Bilirubin [Mass/Vol] 3.5 mg/dL above high threshold 0.0 - 1.2 [facility] Work Phone: Bilirubin.direct [Mass/Vol] 2.0 mg/dL above high threshold 0.0 - 0.3 [facility] Work Phone: Protein [Mass/Vol] 5.8 g/dL below low threshold 6.4 - 8.2 [facility] Work Phone: Hepatitis Panel, Acute (HCFA )on 08-30-2022 HAV IgM IA Ql Non-Reactive See Below [facility] Work Phone: Comment on above: SOURCE: Reference Ra nge: NONREACTIVE Biotin interference may cause falsely decreased results. Patients taking a Biotin dose of up to 5 mg/day should refrain from taking Biotin for 24 hours before sample collection. Providers may contact their local laboratory for further information. Hepatitis Panel, Acute (HCFA) Non-Reactive See Below -[facility] Work Phone: Comment on above: Reference Range: [...] [Mass/Vol] 161 mg/dL Normal 0 - 199 [facility] Comment on above: Result Comment: . AGE [...] dosing. Performed By: #### V TB12 #### [facility] [address] [place] [address] Cholesterol in HDL [Mass/Vol] 62.4 mg/dL Normal [facility] Comment on above: Result Comment: . AGE VERY LOW LOW NORMAL HIGH 0-19 Y < 35 < 40 40-45 ---- 20-24 Y ---- < 40 >45 ---- >24 Y ---- < 40 40-60 >60 . Performed By: #### V TB12 #### [facility] [address] [place] [address] Cholesterol in LDL [Mass/Vol] 56 mg/dL Normal 0 - 99 [facility] Comment on above: Result Comment: . NEAR BORD AGE DESIRABLE OPTIMAL HIGH HIGH VERY HIGH 0-19 Y 0 - 109 --- 110-129 >/= 130 ---- 20-24 Y 0 - 119 --- 120-159 >/= 160 ---- >24 Y 0 - 99 100-129 130-159 160-189 >/=190 . Performed By: #### V TB12 #### [facility] [address] [place] [address] Cholesterol in VLDL [Mass/Vol] 43 mg/dL High 0 - 40 [facility] Comment on above: Performed By: #### V TB12 #### [facility] [address] [place] [address] Cholesterol.total/Chol esterol in HDL [Mass ratio] 2.6 {ratio} Normal [facility] Comment on above: Result Comment: REF VALUES DESIRABLE < 3.4 HIGH RISK > 5.0 Performed By: #### V TB12 #### [facility] [address] [place] [address] NON-HDL CHOLESTEROL 99 mg/dL Normal [facility] Comment on above: Result Comment: AGE DESIRABLE BORDERLINE HIGH HIGH VERY HIGH 0-19 Y 0 - 119 120 - 144 >/= 145 >/= 160 20-24 Y 0 - 149 150 - 189 >/= 190 ---- >24 Y 30 MG/DL ABOVE LDL CHOLESTEROL GOAL . Performed By: #### V TB12 #### [facility] [address] [place] [address] Triglyceride [Mass/Vol] 213 mg/dL High 0 - 149 [facility] Comment on above: Result Comment: . AGE [...] dosing. Performed By: #### V TB12 #### [facility] [address] [place] [address] Laboratory - Chemistry and C hemistry - challengeon 08-30-2022 Anion gap [Moles/Vol] 11 mmol/L 10 - 20 [facility] Work Phone: Calcium [Mass/Vol] 7.7 mg/dL below low threshold 8.6 - 10.3 [facility] Work Phone: Chloride [Moles/Vol] 80 mmol/L below low threshold 98 - 107 [facility] Work Phone: CO2 [Moles/Vol] 31 mmol/L 21 - 32 [facility] Work Phone: Creatinine [Mass/Vol] 0.47 mg/dL below low threshold See Below [facility] Work Phone: Comment on above: Reference Range: 0.5 0 - 1.30 Glucose [Mass/Vol] 109 mg/dL above high threshold 74 - 99 [facility] Work Phone: Potassium [Moles/Vol] 3.2 mmol/L below low threshold 3.5 - 5.3 [facility] Work Phone: Sodium [Moles/Vol] 119 mmol/L Critically low 136 - 145 [facility] Work Phone: Comment on above: SOD CALLED RB TO JJ MOHAN, 08/30/2022 08:10 TSH Qn 8.58 m[IU]/L above high threshold See Below [facility] Work Phone: Comment on above: Reference Range: 0.4 4 - 3.98 TSH testing is performed using different testing methodology at [facility] than at other [facility]. Direct result comparisons should only be made within the same method. Urea nitrogen [Mass/Vol] 9 mg/dL 6 - [facility] Work Phone: Laboratory - Hematology and Cell countson 08-30-2022 Erythrocyte distribution width (RBC) [Ratio] 13.9 % See Below [facility] Work Phone: Comment on above: Reference Range: 11. 5 - 14.5 Hematocrit (Bld) [Volume fraction] 28.4 % below low threshold See Below [facility] Work Phone: Comment on above: Reference Range: 41. 0 - 52.0 Hemoglobin (Bld) [Mass/Vol] 10.2 g/dL below low threshold See Below [facility] Work Phone: Comment on above: Reference Range: 13. 5 - 17.5 MCHC (RBC) [Mass/Vol] 35.9 g/dL See Below [facility] Work Phone: Comment on above: Reference Range: 32. 0 - 36.0 MCV (RBC) [Entitic vol] 97 fL 80 - 100 [facility] Work Phone: Platelets (Bld) [#/Vol] 118 10*3/uL below low threshold 150 - 450 [facility] Work Phone: Comment on above: Platelet count may b e higher than reported due to presence of PlateletClumps. RBC (Bld) [#/Vol] 2.93 {x10E12/L} below low threshold See Below [facility] Work Phone: Comment on above: Reference Range: 4.5 0 - 5.90 WBC (Bld) [#/Vol] 7.0 10*3/uL 4.4 - 11.3 KONUX [facility] Work Phone: Lipid Panelon 08-30-2022 Cholesterol [Mass/Vol] 161 mg/dL 0 - 199 [employer] [facility] Work Phone: Comment on above: [...] guidelines reference: NCEP ATPIII Guidelines, BRANNON 2001, [id number]:4846-97. Venipuncture immediately after or during the administration of Metamizole may lead to falsely low results. Testing should be performed immediately prior to Metamizole dosing. Cholesterol in HDL [Mass/Vol] 62.4 mg/dL [facility] Work Phone: Comment on above: . AGE VERY LOW LOW N ORMAL HIGH 0-19 Y < 35 < 40 40-45 ---- 20-24 Y ---- < 40 >45 ---- >24 Y ---- < 40 40-60 >60. Cholesterol in LDL [Mass/Vol] 56 mg/dL 0 - 99 [facility] Work Phone: Comment on above: . NEAR BORD AGE LORENA RABLE OPTIMAL HIGH HIGH VERY HIGH 0-19 Y 0 - 109 --- 110-129 >/= 130 ---- 20-24 Y 0 - 119 --- 120-159 >/= 160 ---- >24 Y 0 - 99 100-129 130-159 160-189 >/=190. Cholesterol non HDL [Mass/Vol] 99 mg/dL [facility] Work Phone: Comment on above: AGE DESIRABLE BORDER LINE HIGH HIGH VERY HIGH 0-19 Y 0 - 119 120 - 144 >/= 145 >/= 160 20-24 Y 0 - 149 150 - 189 >/= 190 ---- >24 Y 30 MG/DL ABOVE LDL CHOLESTEROL GOAL. Cholesterol.total/Chol esterol in HDL [Mass ratio] 2.6 {ratio} [facility] Work Phone: Comment on above: REF VALUESDESIRABLE < 3.4HIGH RISK > 5.0 Triglyceride [Mass/Vol] 213 mg/dL above high threshold 0 - 149 [facility] Work Phone: Comment on above: . [...] high threshold 0 - 40 [facility] Work Phone: MAGNESIUMon 08-30-2022 Magnesium [Mass/Vol] 1.70 mg/dL Normal 1.60 - 2.40 [facility] Comment on above: Performed By: #### V TB12 #### [facility] [address] [place] [address] Magnesium, Serumon Magnesium [Mass/Vol] 1.70 mg/dL See Below [facility] Work Phone: Comment on above: Reference Range: 1.6 0 - 2.40 No Panel Informationon 08-30 >90 >90 [facility] Work Phone: Comment on above: CALCULATIONS OF ROSANA MATED GFR ARE PERFORMED USING THE 2020 CKD-EPI STUDY REFIT EQUATION WITHOUT THE RACE VARIABLE FOR THE IDMS-TRACEABLE CREATININE METHODS.https://jasn.asnjournals.org/content//A SN.5729078547 OSMOLALITY, SERUMon 08-31-19 23 OSMOLALITY, SERUM 252 mOsm/kg H2O Low 280 - 300 [facility] Comment on above: Performed By: #### R ENAL #### [facility] [address] [place] [address] OSMOLALITY,URINEon 3 OSMOLALITY,URINE 674 mOsm/kg Normal 200 - 1200 [facility] Comment on above: Performed By: #### R ENAL #### [facility] [address] [place] [address] OSMOLALITY,URINE SPOTon - OSMOLALITY,URINE SPOT Canceled Normal [facility] Comment on above: Order Comment: TEST OSMOLALITY,URINE SPOT WAS CANCELLED, 08/30/2022 05:35 DUPLICATE ORDERsee [id number]. Performed By: #### G ZOHREH #### [facility] [address] [place] [address] Osmolality, Serumon 08-31-19 23 Osmolality [Osmolality] 252 {mOsm/kg_H2O} below low threshold 280 - 300 [facility] Work Phone: PHOSPHORUSon 08-30-2022 Phosphate [Mass/Vol] 1.2 mg/dL Low 2.5 - 4.9 [facility] Comment on above: Result Comment: The performance characteristics of phosphorus testing in heparinized plasma have been validated by the individual laboratory site where testing is performed. Testing on heparinized plasma is not approved by the FDA; however, such approval is not necessary. Performed By: #### R ENAL #### [facility] [address] [place] [address] Phosphorus, Serumon 08-31-19 23 Phosphate [Mass/Vol] 1.2 mg/dL below low threshold 2.5 - 4.9 [facility] Work Phone: Comment on above: The performance fransisca acteristics of phosphorus testing in heparinized plasma have been validated by the individual laboratory site where testing is performed. Testing on heparinized plasma is not approved by the FDA; however, such approval is not necessary. Radiologyon 08-30-2022 XR Knee 1 or 2 Views Normal MP-U niv [facility] Work Phone: Rehab Jatw-lb-hrqrhqcomhi Rehab Wmxg-us-pyfmkpsij Rehab: Info: Disciplineoccupational therapist Mode of Treatmentco-treatment Time IN13:57 Time OUT14:15 Total Treatment [id number] Total Minutes Commentco-treatment with PT to maximize [...] Patient Effortfair Symptoms Noted During/After Treatmentfatigue Treatment Considerations/CommentsPa tient chart review by therapist. Per handoff with [...] Status (Cognitive)confused; flat/blunted affect Mobility/Tone: Bed Mobility Assessment/Interventionsr olling left; rolling right; scooting/bridging Roll Left Bristol (Bed Mobility)2 person assist; dependent (less than 25% patient effort) Roll Right Bristol (Bed Mobility)2 person assist Scoot/Bridge Bristol (Bed Mobility)dependent (less than 25% patient effort); 2 person assist Comment, Bed MobilityTotal A x2 for rolling left/right and for positioning trunk closer to HOB with use of draw sheet. VCs for positioning and UE placement to assist with bed mobility. ADL: BADL Assessment/Interventionlo wer body dressing; toileting Bristol Level (Lower Body Dressing)dependent (less than 25% patient effort) Comment (Lower Body Dressing)Total A for donning yoandy socks due to fatigue and decreased mobility. Bristol Level (Toileting)2 person assist; dependent (less than 25% patient effort) Comment (Toileting)pt with bowel incontinence upon arrival, therapists assisting with toileting however pt unable to stop voiding and required chux to be replaced x2 during session. pt requiring Total A x2 for side rolling and for posterior hygiene/changing chux. Impairments, BADL Safety/Performancebalance ; endurance/activity tolerance; trunk/postural control; strength Sensory: Pre-Treatment [...] Score10 Short Term Goals: Bed Mobility: Date [id number] Bed Mobility: Bristol Level Goalmaximum assist (25% patients effort) Bed Mobility: Physical Assist Level Goal1-person assist Bed Mobility: Time Frame for Goal2 wks Transfer: Established Transfer: Transfer Type Goaltoilet Transfer: Bristol Level Goalmaximum assist (25% patients effort) Transfer: [...] Frame for Goal2 wks Grooming: Established Grooming: Bristol Level Goalmodified independent Grooming: Physical Assist Level Goal1-person assist Grooming: Time Frame for Goal2 wks Upper Body Dressing: Established [id number] Upper Body Dressing: Bristol Level Goalmoderate assist (50% patients effort) Upper Body Dressing: Physical Assist Level Goal1-person assist Upper Body Dressing: Time Frame for Goal2 wks Lower Body Dressing: Established [id number] Lower Body Dressing: Bristol Level Goalmaximum assist (25% patients effort) Lower Body Dressing: Physical Assist Level Goal1-person (more content not included)... Normal [facility] Rehab Note-physical aerodynamicist - Co treat with OT Fabricio 08-30-2022 Rehab Note-physical aerodynamicist - Co treat with OT Jerzy Rehab: Info: Disciplinephysical licensed occupational therapy assistant; Co treat with OT Jorge Armstrong to maximize pt participation. Participated in performance of tx and documentation under the direct supervision of CI, student Prudencio WINN Mode of Treatmentco-treatment; physical therapy Time IN13:55 Time OUT14:15 Total Treatment [id number] Patient in ... at end of sessionbed, 3 railings up; alarm on Communicated with ... at end of sessionbedside nurse; discussed pt's progress and current mobility as described in mobility section Patient Effortpoor Treatment Considerations/Commentsur ethral indwelling catheter, IV, tele Patient Response to TreatmentRN Ok'd seeing pt with no stated issues in past 24 hours that would be contraindicated prior to pt participating in therapy. Patient had poor sanjana to tx this date, agreeable to participate in therapy this date. In bed upon entry. pt having uncontrollable bowel movements during tx. Patient/Family/Caregiver Comments/Observationsvisi tor in room at start of tx Mobility/Tone: Bed Mobility Assessment/Interventionsb ed mobility activities; rolling right; rolling left; scooting/bridging Bristol (Bed Mobility)dependent (less than 25% patient effort); 2 person assist; set up Roll Left Bristol (Bed Mobility)dependent (less than 25% patient effort); 2 person assist; set up Roll Right Bristol (Bed Mobility)dependent (less than 25% patient effort); 2 person assist Scoot/Bridge Bristol (Bed Mobility)dependent (less than 25% patient effort); 2 person assist; set up Assistive Device (Bed Mobility)draw sheet Comment, Bed MobilityPt able to complete all bed mobility requiring dependent assist. Impairments Impacting Function (Mobility)endurance/activ ity tolerance; strength Sensory: Pre-Treatment Pain Rating4/10 Post-Treatment [...] Score6 Short Term Goals: Bed Mobility: Date [id number] Bed Mobility: Bristol Level Goalminimum assist (75% patients effort) Bed Mobility: Time Frame for Goal2 wks Transfer: Established [id number] Transfer: Transfer Type Nwlhgpb-xj-aawus/chair-to -bed; hrg-gg-rmrnq/qtvst-qn-wxu Transfer: Bristol Level Goalminimum assist (75% patients effort) Transfer: Assistive Device Goalrolling walker Transfer: Time Frame for Goal2 wks Gait: Established [id number] Gait: Bristol Level Goalmodified independent Gait: Assistive Device Goalrolling [...] Short Term Goals, DC Recommendations Davis Goldberg (WATER TREATMENT OPERATOR) (Signed 30-Aug-2022 16:04) Authored: Info, Mobility/Tone, Sensory, Outcomes Tools, Short Term Goals, DC Recommendations Linh Taveras (PT) (Signed 30-Aug-2022 16:37) Co-Signer: Info, Mobility/Tone, Sensory, Outcomes Tools, Short Term Goals, DC Recommendations Last Updated: 30-Aug-2022 16:37 by Linh Taveras (PT) Normal [facility] Swallow Evaluation v2-Bedsid e Clinical Swallow, SLPon 08-30-2022 Swallow Evaluation v2-Bedside Clinical Swallow, BLANKET WEAVER Rehab: Info: Time IN10:40 Time OUT10:57 Total Treatment [id number] Patient in ... at end of sessionbed, 2 railings up Communicated with ... at end of sessionbedside nurse; physician; Neva, GI, Brother Evaluation TypeBedside Clinical Swallow, BLANKET WEAVER Patient Effortadequate Symptoms Noted During/After Treatmentweakness -fatigue; fatigue Patient Profile Reviewedyes Onset of Illness/Injury or Date of [id number] Reason for Referralswallowing consult Referring PhysicianSalomone Patient/Family/Caregiver Comments/ObservationsBrot her in room with pt not tolerating solids x5 days. General Observations of PatientAlert, 0x3 , very weak and c/o a globus sensation in the mid esophogeal region. Per the pt - poor swallowing with solids x 2 months Pertinent History of Current Functional Lrxeaxl26 y/o admit to [facility] from home with c/o PO solids sticking in the mid esophageal region. GI consulted with EGD cancelled this date / the pt's electrolytes are off . pmhx; [...] to Admission ConsistencyThin 0 (Regular thin) Hearing Precautions/LimitationsWF L Precautions/Limitationsin fection precautions; fall precautions; swallowing precautions Limitations/Impairmentssa fety/cognitive; endurance; swallowing Developmental Statusindependent, age appropriate Impression: BLANKET WEAVER Swallowing Diagnosisoral dysfunction; Pt edentulous and weak, [...] safe for the Full liquid diet and BLANKET WEAVER to follow with ongoing reassessments pending EGD results. Rehab Potential/Prognosis (Swallow Eval)good, to achieve stated therapy goals Speech Therapy RecommendationsContinue Full Liquid diet Crushed meds BLANKET WEAVER to follow for a re-evaluation post EGD results -recs if indicated. Criteria for Skilled Therapeutic Interventions Met (Swallow Eval)yes; treatment indicated BLANKET WEAVER Diet RecommendationsFull liquid diet BLANKET WEAVER Liquid Consistency RecommendationsThin 0 (Regular thin) Recommended [...] per GI Short Term Goals: Dysphagia/Swallow: Established [id number] Dysphagia/Swallow: Goal Details1. Pt will swallow the GI appropriate diet without concern for aspiration. 2. Ongoing swallowing re-evaluations post the GI objective study- EGD results and recs if clinically appropriate. 3. Pt/family education 4. Determine if a MBSS is needed. Dysphag (more content not included)... Normal [facility] T4 - Free Thyroxine, Serumon 08-30-2022 Free T4 [Mass/Vol] ng/dL below low threshold See Below -[facility] Work Phone: Comment on above: Reference Range: 0.6 1 - 1.12 Thyroxine Free testing is performed using different testing methodology at [facility] than at other [facility]. Direct result comparisons should only be made [...] 08-30-2022 THYROXINE,FREE <0.25 Low 0.61 - 1.12 [facility] Comment on above: Result Comment: Thyr oxine Free testing is performed using different testing methodology at [facility] than at other [facility]. Direct result comparisons should only be made [...] draw. Performed By: #### V TB12 #### [facility] [address] [place] [address] TSH WITH REFLEX TO FREE T4 I F ABNORMALon 08-30-2022 TSH Qn 8.58 m[IU]/L High 0.44 - 3.98 [facility] Comment on above: Result Comment: TSH testing is performed using different testing methodology at [facility] than at other [facility]. Direct result comparisons should only be made within the same method. Performed By: #### V TB12 #### [facility] [address] [place] [address] ALCOHOLon 08-29-2022 Ethanol [Mass/Vol] mg/dL Normal [facility] Comment on above: Result Comment: FOR MEDICAL USE ONLY. . REF VALUES <10 Performed By: #### M G #### [facility] [address] [place] [address] AMMONIAon 08-29-2022 Ammonia (P) [Moles/Vol] 44 umol/L Normal [facility] Comment on above: Result Comment: . REFERENCE VALUES DAY 1 to DAY 7 <110 DAY 8 to DAY 14 < 90 DAY 15 to ADULT 16-53 Performed By: #### A MM ####[facility] [id number] [place] [address] Admission Risk Screen - Adul ton 08-29-2022 [...] AlertFor Ebola-like Symptoms: Isolate Patient and Notify Provider/Load Manager For Contact: Notify Provider/Load Manager Advance Directive: Advance Directive/DNRyes Advance Directive typeDurable Power of Lathe Operator Contact Lens for Healthcare Durable Power of Lathe Operator Contact Lens AvailabilityDPOA not available now Durable Power of Lathe Operator Contact Lens [id number] Durable Power of Lathe Operator Contact Lens contact (name and number)Corwin [phone] Ayala Fall Screen: History of falling (immediate [...] Communicateglasses Learning Preferencesverbal instruction Cultural Considerationscultural considerations gnosticism Developmental Considerationsnone Mandaen Considerationsreligious considerations gnosticism Learning Assessment (Other Learner): Other learner availableno Depression Screen: During the past month, have you often been bothered by feeling down, depressed or hopelessno During the past month, have you often had little interest or pleasure in doing thingsno Have you had any thoughts of harming anyone elseno (1) Roy Suicide: Risk Screen Not Applicable/Able to Answerable to be screened In the Past Month: Have you wished you were or could go to sleep and not wake upno(1) In the Past Month: Have you had any actual thoughts of killing yourself no(1) Lifetime: Have you ever done, started to do, or prepared to do anything to end your lifeno Roy Suicide Risknegative Adult Nutrition Screen: Have you [...] Spiritual Screen: Are there any cultural, spiritual, shinto practices/values/needs that are important for us to knowyes cath (more content not included)... Normal [facility] Ammonia, Plasmaon 08-29-2022 Ammonia (P) [Moles/Vol] 44 umol/L [facility] Work Phone: Comment on above: .REFERENCE VALUESDAY 1 to DAY 7 <110DAY 8 to DAY 14 < 90DAY 15 to ADULT 16-53 BILIRUBIN,DIRECTon 3 Bilirubin.indirect [Mass/Vol] 2.3 mg/dL High 0.0 - 0.3 [facility] Comment on above: Performed By: #### D BILI ####[facility] [id number] [place] [address] Bilirubin, Serum Direct - Co njugatedon 08-29-2022 Bilirubin.direct [Mass/Vol] 2.3 mg/dL above high threshold 0.0 - 0.3 [facility] Work Phone: COMPREHENSIVE PANELon 2022 Albumin [Mass/Vol] 3.5 g/dL Normal 3.4 - 5.0 [facility] Comment on above: Performed By: #### C MP ####[facility] [id number] [place] [address] ALP [Catalytic activity/Vol] 158 U/L High 33 - 136 [facility] Comment on above: Performed By: #### C MP ####[facility] [id number] [place] [address] ALT [Catalytic activity/Vol] 45 U/L Normal 10 - 52 [facility] Comment on above: Result Comment: Raysa ents treated with Sulfasalazine may generate falsely decreased results for ALT. Performed By: #### C MP ####[facility] [id number] [place] [address] Anion gap [Moles/Vol] 15 mmol/L Normal 10 - 20 [facility] Comment on above: Performed By: #### C MP ####[facility] [id number] [place] [address] AST [Catalytic activity/Vol] 136 U/L High 9 - 39 [facility] Comment on above: Performed By: #### C MP ####[facility] [id number] [place] [address] Bilirubin [Mass/Vol] 4.4 mg/dL High 0.0 - 1.2 [facility] Comment on above: Performed By: #### C MP ####[facility] [id number] [place] [address] Calcium [Mass/Vol] 8.0 mg/dL Low 8.6 - 10.3 [facility] Comment on above: Performed By: #### C MP ####[facility] [id number] [place] [address] Chloride [Moles/Vol] 82 mmol/L Low 98 - 107 [facility] Comment on above: Performed By: #### C MP ####[facility] [id number] [place] [address] Creatinine [Mass/Vol] 0.43 mg/dL Low 0.50 - 1.30 [facility] Comment on above: Performed By: #### C MP ####[facility] [id number] [place] [address] eGFR MALE >90 Normal >90 [facility] Comment on above: Result Comment: CALC ULATIONS OF ESTIMATED GFR ARE PERFORMED USING THE 2020 CKD-EPI STUDY REFIT EQUATION WITHOUT THE RACE VARIABLE FOR THE IDMS-TRACEABLE CREATININE METHODS. https://jasn.asnjournals.org/content//ASN.41419 22147 Performed By: #### C MP ####[facility] [place] [address] Glucose [Mass/Vol] 115 mg/dL High 74 - 99 [facility] Comment on above: Performed By: #### C MP ####[facility] [place] [address] HCO3 (Bld) [Moles/Vol] 29 mmol/L Normal 21 - 32 [facility] Comment on above: Performed By: #### C MP ####[facility] [place] [address] Potassium [Moles/Vol] 3.2 mmol/L Low 3.5 - 5.3 [facility] Comment on above: Performed By: #### C MP ####[facility] [place] [address] Protein [Mass/Vol] 6.0 g/dL Low 6.4 - 8.2 [facility] Comment on above: Performed By: #### C MP ####[facility] [place] [address] Sodium [Moles/Vol] 123 mmol/L Low 136 - 145 [facility] Comment on above: Performed By: #### C MP ####[facility] [place] [address] Urea nitrogen [Mass/Vol] 10 mg/dL Normal 6 - 23 [facility] Comment on above: Performed By: #### C MP ####[facility] [place] [address] CREATINE KINASEon 08-29-2022 CK [Catalytic activity/Vol] 376 U/L High 0 - 325 [facility] Comment on above: Performed By: #### R ENAL #### [facility] [address] [place] [address] Consult-Gastroenterologyon 0 08-29-2022 Consult-Gastroenterolo gy Service: Service: Gastroenterology Consult: Consult requested by [...] Known Allergies: Objective: Objective Information: T PRBPMAPSpO2 [id number]/5695% Date/Time08/29 11: 11: 11: 11: 11:49 Range(36.2C [...] tenderness or (more content not included)... Normal [facility] Consult-Nephrologyon 023 Consult-Nephrology Service: Service: Nephrology Consult: [...] Known Allergies: Objective: Objective Information: T PRBPMAPSpO2 [id number]/5695% Date/Time08/29 11: 11: 11: 11: 11:49 Range(36.2C [...] lower extremities bilaterally Medications: Medications: Continuous Medications ------- No continuous medications are active Scheduled Medications ------- 1. Allopurinol: 300 mg Oral Every 24 [...] Topical 3 Times a Day PRN Medications ------- 1. LORazepam Injectable: 0.5 mg IntraVenous Push Every 2 Hours 2. LORazepam Injectable: 1 mg IntraVenous Push Every 2 Hours 3. LORazepam Injectable: 2 mg IntraVenous Push Every 2 Hours 4. Ondansetron Injectable: 4 mg IntraVenous Push Every 4 Hours 5. oxyCODONE Immediate Release: 5 mg Oral Every 4 Hours Conditional Medication Orders ------- 1. Perflutren Lipid Microsphere (Activated) 1.3 mL / NaCL 0.9% T.V. 10 mL Injectable: 0.5 mL IntraVenous Push Once Currently Suspended Medications ------- 1. Sodium Chloride 0.9% with Potassium CL [...] 29-Aug-2022 06 (more content not included)... Normal [facility] Consult-Pulmonologyon 2022 Consult-Pulmonology Service: Service: Pulmonology Consult: Consult requested by (Attending Name): Polo Sanchez Reason: On [facility] bone density History of Present Illness: Admission [...] mildly elevated LA and BNP. Admitted to [facility] for further management. CT revealed a [...] Known Allergies: Objective: Objective Information: T PRBPMAPSpO2 [id number]/5896% Date/Time08/29 8: 8: 8: 8: 8:00 Range(36.2C [...] 3 Times a Day Currently Suspended Medications ------- 1. Sodium Chloride 0.9% with Potassium CL 20 mEq Premix Fluid: 1000 mL IntraVenous Recent Lab Results: Results: I have reviewed these laboratory results: Comprehen (more content not included)... Normal [facility] Creatine Kinase, Levelon CK [Catalytic activity/Vol] 376 U/L above high threshold 0 - 325 [facility] Work Phone: Discharge Planning [id number] 08-29-2022 Discharge Planning Note2 Discharge Planning: Discharge Barriersmedical Planned Dispositionhome Discharge DestinationTBD Discharge Transportation [facility] from [facility] [place] of Choice Explainedyes preference Anticipated Discharge [id number] Discharge Planning 08/29/22 0800am Patient admitted for dysphagia, GI and Speech on to evaluate. Patient also complains of weakness at this time. Will continue to follow for possibel [facility] for DC planning. Lorrie Parekh RN, BSN, TCC 08/30/2022 1000 met with patient brother at bedside Corwin [phone] /JUDY he is requesting a DNR status, request re-directed to physician on duty. Discussed with patient brother need for discharge plan, brother stated he wanted to wait until further test, are performed and that he felt his brother was declining fast. Will follow for discharge planning needs Mirian JENKINS,RN,[facility] 08/31/2022 11:24 AM I met with patient's brother.We discussed that patient is recommended for SNF. He asked me to [facility] 1[facility]. I requested CNC to send. I will follow up with bed availability. Alysa Brewer [facility] 08/31/2022 1140 DSC: Built and sent SNF referral to [facility], [facility], [facility] and [facility], awaiting a response. Zeina Weller Discharge Train Planner 08/31/2022 4:23 PM Message left for brother to discuss discharge plans. Alysa Brewer [facility] 08/31/2022 4:40 PM I spoke with patient's brother. He said [facility]. Alysa Brewer NUCLEAR CHEMISTRY TECHNICIAN 09/01/2022 900 DSC: Updates sent to [facility]. Zeina Weller Discharge Train Planner 09/02/2022 844 DSC: Updates sent to [facility]. Zeina Weller Discharge Train Planner 09/02/2022 planned GED today, continued with IV [...] bed availability at SNF. He said that [facility] is ok if bed is not available at [facility]. Alysa AGUEROW 09/03/2022 15:13 PCN: Completed and submitted new auth for pt to go to [facility]. Pt has auth to admit. Relayed to team and sent the following message to the SNF via [email or web address]: Pt has auth to admit! AMY ID: [id number] 09/03-09/07 Updates due 09/07 Brenda de la fuente qa reviewer fax updates to: [phone] Thanks! Trang [phone] [place] 09/03/2022 met with patient at bedside encouraged him to participate in his therapy to get better, patient brother at bedside agreeable, Planned discharge to n 1-2 days Mirian JENKINS,RN,TCC 09/03/2022 3:48 PM Brother notified that transport has been requested for a Tuesday discharge. Alysa AGUEROW 09/03/2022 1642 DSC: Transport confirmed for 12noon hop picker on 09/04, facility notified. Zeina Weller Discharge Train Planner 09/03/2022 1655 DSC: PASRR completed in [facility]. Zeina Weller Discharge Train Planner Assessment: Discharge Planning Assessment Discharge Planning Assessment Completed byLorrie Parekh RN, BSN, TCC Primary Contact Name and NumberCorwin [phone](1) Prior Level of FunctioningIndependent prior to admission Lives Withalone(1) Living Arrangementshouse(1) Stated Reason for Admissionweakness, unable to eat(1) [place] ([place]) PCPMattjacqueline Jean Resource/Environmental Concernsnone(1) Anticipated Transition Toinpatient rehabilitation facility(1) Services Anticipated at Transitionrehabilitation services(1) InsuranceUnited Mycare Anticipated Changes Related to Illnessnone Equipment Needed After Dischargenone Anticipated Discharge Facility/Level of Care Needs.Home Discharge Documentation: Discharge Modestretcher Code StatusCode Status order at time of discharge: DNAR Patient already has a completed DNR State Form [place] DNR State Form Status: DNR Comfort Care Arrest Discharge Order Writtenyes [place] DNR Form Sent with Patient and/or Familyno Electronic Signatures: Trang Raymundo (PCN) (Signed 03-Sep-2022 15:13) Authored: Discharge Planning Lorrie Parekh (RN) (Signed 29-Aug-2022 08:04) Author (more content not included)... Normal [facility] EMR ADDONon 08-29-2022 ADDON CONFIRMATION Canceled Normal [facility] Comment on above: Order Comment: TEST EMR ADDON WAS CANCELLED, 08/29/2022 12:53 need sst tube (yellow/red top). Performed By: #### E MRAD ####[facility] [id number] [place] [address] ADDON CONFIRMATION REQUEST REC'D Normal [facility] Comment on above: Performed By: #### E MRAD ####[facility] [id number] [place] [id number] ADDON CONFIRMATION REQUEST REC'D Normal [facility] Comment on above: Performed By: #### E MRAD ####[facility] [id number] [place] [id number] ADDON CONFIRMATION REQUEST REC'D Normal [facility] Comment on above: Performed By: #### R ENAL #### [facility] [address] [place] [id number] LACTATEon 04-23-2023 Lactate [Moles/Vol] 1.5 mmol/L Normal 0.4 - 2.0 [facility] Comment on above: Result Comment: Lisa puncture immediately after or during the administration of Metamizole may lead to falsely low results. Testing should be performed immediately prior to Metamizole dosing. MILD ICTERUS DETECTED. The result may be falsely decreased due to icterus or other interferents. Clinical correlation is recommended. Repeat testing may be considered. Performed By: #### L ACT ####[facility] [id number] [place] [address] Laboratory - Chemistry and C hemistry - challengeon 08-29-2022 Creatinine (U) [Mass/Vol] 178.0 mg/dL See Below [facility] Work Phone: Comment on above: Reference Range: 20. 0 - 370.0 Sodium (U) [Moles/Vol] 32 mmol/L See Below [facility] Work Phone: Comment on above: Reference Range: Not Established Sodium/Creatinine (U) [Ratio] 18 {mmol/g_Creat} See Below [facility] Work Phone: Comment on above: Reference Range: Not Established Albumin BCP dye [Mass/Vol] 3.5 g/dL 3.4 - 5.0 [facility] Work Phone: ALP [Catalytic activity/Vol] 158 U/L above high threshold 33 - 136 [facility] Work Phone: ALT With P-5'-P [Catalytic activity/Vol] 45 U/L 10 - 52 [facility] Work Phone: Comment on above: Patients treated wit h Sulfasalazine may generate falsely decreased results for ALT. Anion gap [Moles/Vol] 15 mmol/L 10 - 20 [facility] Work Phone: AST With P-5'-P [Catalytic activity/Vol] 136 U/L above high threshold 9 - 39 [facility] Work Phone: Bilirubin [Mass/Vol] 4.4 mg/dL above high threshold 0.0 - 1.2 [facility] Work Phone: Calcium [Mass/Vol] 8.0 mg/dL below low threshold 8.6 - 10.3 [facility] Work Phone: Chloride [Moles/Vol] 82 mmol/L below low threshold 98 - 107 [facility] Work Phone: CO2 [Moles/Vol] 29 mmol/L 21 - 32 [facility] Work Phone: Creatinine [Mass/Vol] 0.43 mg/dL below low threshold See Below [facility] Work Phone: Comment on above: Reference Range: 0.5 0 - 1.30 Glucose [Mass/Vol] 115 mg/dL above high threshold 74 - 99 [facility] Work Phone: Potassium [Moles/Vol] 3.2 mmol/L below low threshold 3.5 - 5.3 [facility] Work Phone: Protein [Mass/Vol] 6.0 g/dL below low threshold 6.4 - 8.2 -[facility] Work Phone: Sodium [Moles/Vol] 123 mmol/L below low threshold 136 - 145 [facility] Work Phone: Urea nitrogen [Mass/Vol] 10 mg/dL 6 - 23 [facility] Work Phone: Anion gap 4 (BldV) [Moles/Vol] 6 mmol/L below low threshold 10 - 25 [facility] Work Phone: Base excess Calc (BldV) [Moles/Vol] 9.3 mmol/L above high threshold -2.0 - 3.0 [facility] Work Phone: Calcium.ionized (BldV) [Moles/Vol] 0.98 mmol/L below low threshold See Below [facility] Work Phone: Comment on above: Reference Range: 1.1 0 - 1.33 Chloride (BldV) [Moles/Vol] 82 mmol/L below low threshold 98 - 107 [facility] Work Phone: CO2 (BldV) [Partial pressure] 46 mm[Hg] 41 - 51 [facility] Work Phone: Glucose [Mass/Vol] 133 mg/dL above high threshold 74 - 99 [facility] Work Phone: HCO3 (Bld) [Moles/Vol] 34.3 mmol/L above hig h threshold See Below [facility] Work Phone: Comment on above: Reference Range: 22. 0 - 26.0 Lactate (BldV) [Moles/Vol] 3.2 mmol/L above high threshold 0.4 - 2.0 [facility] Work Phone: Oxygen (BldV) [Partial pressure] 27 mm[Hg] below low threshold 35 - 45 -[facility] Work Phone: Oxyhemoglobin (BldV) [Mass fraction] 42.2 % below low threshold See Below [facility] Work Phone: Comment on above: Reference Range: 45. 0 - 75.0 pH (BldV) 7.48 [pH] above high threshold See Below [facility] Work Phone: Comment on above: Reference Range: 7.3 3 - 7.43 Potassium (BldV) [Moles/Vol] 3.2 mmol/L below low threshold 3.5 - 5.3 [facility] Work Phone: Sodium (BldV) [Moles/Vol] 119 mmol/L Critically low 136 - 145 [facility] Work Phone: Comment on above: CRIT SOD CALLED RB T O DAVE RILEY., 08/29/2022 03:32 Creatinine (U) [Mass/Vol] 162.0 mg/dL See Below [facility] Work Phone: Comment on above: Reference Range: 20. 0 - 370.0 Sodium (U) [Moles/Vol] 16 mmol/L See Below [facility] Work Phone: Comment on above: Reference Range: Not Established Sodium/Creatinine (U) [Ratio] 10 {mmol/g_Creat} See Below [facility] Work Phone: Comment on above: Reference Range: Not Established Laboratory - Hematology and Cell countson 08-29-2022 Hematocrit Est (Bld) [Volume fraction] 45.0 % See Below [facility] Work Phone: Comment on above: Reference Range: 41. 0 - 52.0 Hemoglobin (Bld) [Mass/Vol] 15.1 g/dL See Below [facility] Work Phone: Comment on above: Reference Range: 13. 5 - 17.5 Lactate, Levelon 08-29-2022 Lactate [Moles/Vol] 1.5 mmol/L 0.4 - 2.0 [facility] Work Phone: Comment on above: Venipuncture immedia tely after or during the administration of Metamizole may lead to falsely low results. Testing should be performed immediately prior to Metamizole dosing.MILD ICTERUS DETECTED. The result may be falsely decreased due to icterusor other interferents. Clinical correlation is recommended. Repeat testingmay be considered. No Panel Informationon 08-29 >90 >90 [facility] Work Phone: Comment on above: CALCULATIONS OF ROSANA MATED GFR ARE PERFORMED USING THE 2020 CKD-EPI STUDY REFIT EQUATION WITHOUT THE RACE VARIABLE FOR THE IDMS-TRACEABLE CREATININE METHODS.https://jasn.asnjournals.org/content/early//A SN.2047122611 Inhaled oxygen concentration 21 % [facility] Work Phone: OT Evaluation [id number] ton 08-29-2022 OT Evaluation [id number] Rehab: Info: Mode of Treatmentco-treatment; occupational therapy Time IN11:11 Time OUT11:45 Total Treatment [id number] Total Minutes CommentUntimed eval with PT + [...] none. Onset of Illness/Injury or Date of [id number] Reason for Referralnew documented impairments affecting ADLs Referring PhysicianShapiro General Observations of Patientpt supine in bed upon arrival, family present for session. pt self-limiting and saying I can't move at all however agreeable with encouragement. Pt reporting had a recent fall with R knee pain/swelling. Pertinent History of Current Functional Hwcfsji89 year old Male with a past medical history of hypertension, hyperlipidemia, anemia, alcohol use disorder, BPH, anxiety, hypothyroidism, gouty arthritis who presented to [facility] complaining of worsening dysphagia to solid [...] mildly elevated LA and BNP. Admitted to [facility] for further management. CT revealed a RUL nodule/mass for which pulmonary is consulted. Hand Dominanceright Hearing Precautions/LimitationsWF L Precautions/Limitationsfa ll precautions Ambulation Skills - Previous Level of [...] upper extremity strength WFL Mobility/Tone: Bed Mobility Assessment/Interventionss upine to sit; sit to supine; scooting/bridging Scoot/Bridge [place] (Bed Mobility)maximum assist (25% patient effort); 2 person assist; MAX A x2 for lateral scooting towards R side while seated EOB to position self closer to HOB Dcrmzd-eq-Hzv [place] (Bed Mobility)dependent (less than 25% patient effort); 2 person assist; Total A x2 for managing BLE and trunk Yyc-qr-Xzredp [place] (Bed Mobility)dependent (less than 25% patient effort); 2 person assist; Total A x2 for managing BLE and trunk Transfer Assessment/Interventionss it to stand transfer; stand to sit transfer Sit-Stand [place] (Transfers)maximum assist (25% patient effort); 2 person assist; MAX A x2 to ascend from EOB with gait belt, walker and arm and arm assist. required VCs for hand placement Sit-Stand Assistive Device (Transfers)walker, front-wheeled Stand-Sit [place] (Transfers)maximum assist (25% patient effort); 2 person assist Stand-Sit Assistive Device (Transfers)walker, front-wheeled Impairments Impacting Function (Mobility)balance; endurance/activity tolerance; strength; postural/trunk control ADL: BADL Assessment/Interventionlo wer body dressing; upper body dressing [place] Level (Upper Body Dressing)maximum assist (25% patient effort) Position (Upper Body Dressing)supine Comment (Upper Body Dressing)MAX A for [facility] gown [place] Level (Lower Body Dressing)dependent (less than 25% patient effort) Comment (Lower Body Dressing)Total A for donning yoandy socks due to decreased strength and mobility Impairments, BADL Safety/Performancebalance ; endurance/activity tolerance; strength; pain; trunk/postural control Motor: Sitting, Static (Balance)f (more content not included)... Normal [facility] Osmolality, Urine 24 Houron 08-29-2022 Osmolality (24H U) [Osmolality] 674 {mOsm/kg} 200 - 1200 [facility] Work Phone: Osmolality, Urine Spoton Osmolality (U) [Osmolality] Canceled [facility] Work Phone: PT Evaluation g2-it-xrpttlpc ton 08-29-2022 PT Evaluation [id number]-gyfsvayfy Rehab: Info: Mode of Treatmentco-treatment; physical therapy Time IN11:16 Time OUT11:46 Total Treatment [id number] Total Minutes CommentCo-eval with OT to maximize [...] none. Onset of Illness/Injury or Date of [id number] Reason for Referralnew documented impairments affecting ADLs Referring PhysicianShakelly General Observations of Patientpt supine in bed upon arrival, family present for session. pt self-limiting and saying I can't move at all however agreeable with encouragement. Pt reporting had a recent fall with R knee pain/swelling. Pertinent History of Current Functional Ksjboty67 year old Male with a past medical history of hypertension, hyperlipidemia, anemia, alcohol use disorder, BPH, anxiety, hypothyroidism, gouty arthritis who presented to [facility] complaining of worsening dysphagia to solid [...] mildly elevated LA and BNP. Admitted to [facility] for further management. CT revealed a RUL nodule/mass for which pulmonary is consulted. Hearing Precautions/LimitationsWF L Precautions/Limitationsfa ll precautions Ambulation Skills - Previous Level of [...] L LE grossly 3-/5 Mobility/Tone: Bed Mobility Assessment/Interventionss upine to sit; sit to supine; scooting/bridging Scoot/Bridge [place] (Bed Mobility)maximum assist (25% patient effort); 2 person assist; MAX A x2 for lateral scooting towards R side while seated EOB to position self closer to HOB Kvtrig-xe-Pxk [place] (Bed Mobility)dependent (less than 25% patient effort); 2 person assist; Total A x2 for managing BLE and trunk Vfi-rz-Oedzmb [place] (Bed Mobility)dependent (less than 25% patient effort); 2 person assist; Total A x2 for managing BLE and trunk Transfer Assessment/Interventionss it to stand transfer; stand to sit transfer Sit-Stand [place] (Transfers)maximum assist (25% patient effort); 2 person assist; MAX A x2 to ascend from EOB with gait belt, walker and arm and arm assist. required VCs for hand placement Sit-Stand Assistive Device (Transfers)walker, front-wheeled Stand-Sit [place] (Transfers)maximum assist (25% patient effort); 2 person [...] Static (Balance)fair balance Sitting, Dynamic (Balance)poor balance Kgd-as-Eovsy (Balance)poor balance Standing, Static (Balance)poor balance Sensory: Pre-Treatment Pain Rating5/10 Post-Treatment Pain Rating7/10 Pain LocationR knee Health: Observed Emotional Statecooperative Plan of Care Reviewed Withpatient; family Impression: (more content not included)... Normal [facility] Patient Profile - Adult v2on 08-29-2022 Patient Profile - Adult v2 Profile: Initial Info: How to be AddressedDaniel Spoken Language PreferredEnglish Stated Reason for Admissionweakness, unable to eat Primary Contact Name and NumberCorwin [phone] Wants Family/Rep Notified of Admissionyes, primary contact Notify PCPnotify PCP Informed of Patient Visiting Rightsyes [place] Patient Belongingsremains with patient Patient Belongings Remaining with Patientclothing Medications Brought to Hospitalno General Health: Weight in kg70 kilogram(s)(1) Weight in vfs530.3 pound(s) Weight Methodactual (measured) Scale Typebed Height in cm177.8 centimeter(s)(1) Height in feet5 feet Height in gawcgg80 inch(es) Height Methodstated BMI (kg/m2)22.142 square meter [...] From 1. Vital Signs 28-Aug-2022 17:07 Normal [facility] Provider Note - ED v3on 04-2 Provider [...] patient with (more content not included)... Normal [facility] SODIUM, URINE SPOTon 023 CREATININE,URINE 178.0 mg/dL Normal 20.0 - 370.0 [facility] Comment on above: Performed By: #### M G #### [facility] [address] [address] [place] [address] Sodium (U) [Moles/Vol] 32 mmol/L Normal Not Established [facility] Comment on above: Performed By: #### M G #### [facility] [address] [place] [id number] SODIUM/CREAT RATIO 18 mmol/g Creat Normal Not Established [facility] Comment on above: Performed By: #### M G #### [facility] [address] [place] [id number] CREATININE,URINE 162.0 mg/dL Normal 20.0 - 370.0 [facility] Comment on above: Performed By: #### M G #### [facility] [address] [place] [id number] Sodium (U) [Moles/Vol] 16 mmol/L Normal Not Established [facility] Comment on above: Performed By: #### M G #### [facility] [address] [place] [id number] SODIUM/CREAT RATIO 10 mmol/g Creat Normal Not Established [facility] Comment on above: Performed By: #### M G #### [facility] [address] [place] [address] UA MICROSCOPICon 08-29-2022 BACTERIA 1+ /HPF Abnormal [facility] Comment on above: Performed By: #### R ENAL #### [facility] [address] [address] [place] [address] Mucus Ql (Urine sed) 4+ /LPF Normal [facility] Comment on above: Performed By: #### R ENAL #### [facility] [address] [place] [address] RBC none Normal 0-5 [facility] Comment on above: Performed By: #### R ENAL #### [facility] [address] [place] [address] SQUAMOUS EPITH. CELLS 1 /HPF Normal [facility] Comment on above: Performed By: #### R ENAL #### [facility] [address] [address] [place] [address] WBC none Normal 0-5 [facility] Comment on above: Performed By: #### R ENAL #### [facility] [address] [place] [address] URINALYSIS WITH CULTURE IF I NDICATEDon 08-29-2022 Appearance (U) CLEAR Normal CLEAR [facility] Comment on above: Performed By: #### V TB12 #### [facility] [address] [place] [address] Bilirubin Ql (U) MODERATE(2+) Abnormal NEGATIVE [facility] Comment on above: Performed By: #### V TB12 #### [facility] [address] [place] [address] Color (U) BROWN Normal STRAW,YELLOW [facility] Comment on above: Performed By: #### V TB12 #### [facility] [address] [place] [address] Glucose Ql (U) Negative Normal NEGATIVE [facility] Comment on above: Performed By: #### V TB12 #### [facility] [address] [place] [address] Hemoglobin Ql (U) TRACE Abnormal NEGATIVE [facility] Comment on above: Performed By: #### V TB12 #### [facility] [address] [place] [address] Ketones Ql (U) 25 (1+) Abnormal NEGATIVE [facility] Comment on above: Performed By: #### V TB12 #### [facility] [address] [place] [address] Leukocyte esterase Test strip Ql (U) Negative Normal NEGATIVE [facility] Comment on above: Performed By: #### V TB12 #### [facility] [address] [place] [address] Nitrite Ql (U) Negative Normal NEGATIVE [facility] Comment on above: Performed By: #### V TB12 #### [facility] [address] [place] [address] pH (U) 6.5 [pH] Normal 5.0 - 8.0 [facility] Comment on above: Performed By: #### V TB12 #### [facility] [address] [place] [address] Protein Ql (U) 30 (1+) Abnormal NEGATIVE [facility] Comment on above: Performed By: #### V TB12 #### [facility] [address] [place] [address] Specific gravity (U) [Rel density] 1.025 Normal 1.005 - 1.035 [facility] Comment on above: Performed By: #### V TB12 #### [facility] [address] [place] [address] Urobilinogen (U) [Mass/Vol] mg/dL High 0.0 - 1.9 [facility] Comment on above: Result Comment: SOME PIGMENTS AND MEDICATIONS MAY CAUSE A FALSE POSITIVE UROBILINOGEN Performed By: #### V TB12 #### [facility] [address] [place] [address] Lab Specimen Source Normal [facility] Comment on above: Performed By: #### V TB12 #### [facility] [address] [place] [address] Color (U) BROWN See Below [facility] Work Phone: Comment on above: SOURCE: Reference Ra nge: STRAW,YELLOW Glucose Ql (U) Negative NEGATIVE [facility] Work Phone: Ketones Ql (U) 25 (1+) Abnormal NEGATIVE [facility] Work Phone: Leukocyte esterase Test strip Ql (U) Negative NEGATIVE [facility] Work Phone: pH (U) 6.5 [pH] 5.0 - 8.0 [facility] Work Phone: Protein (U) [Mass/Vol] 30 (1+) Abnormal NEGATIVE [facility] Work Phone: RBC (U) [#/Vol] TRACE Abnormal NEGATIVE [facility] [place] Work Phone: Specific gravity (U) [Rel density] 1.025 1 See Below [facility] Work Phone: Comment on above: Reference Range: 1.0 05 - 1.035 URINALYSIS WITH CULTURE IF INDICATED Negative NEGATIVE [facility] Work Phone: URINALYSIS WITH CULTURE IF INDICATED >12.0 above high threshold 0.0 - 1.9 [facility] [place] Work Phone: Comment on above: SOME PIGMENTS AND ME DICATIONS MAY CAUSE AFALSE POSITIVE UROBILINOGEN URINALYSIS WITH CULTURE IF INDICATED MODERATE(2+) Abnormal NEGATIVE [facility] Work Phone: URINALYSIS WITH CULTURE IF INDICATED CLEAR CLEAR [facility] Work Phone: Urinalysis, Microscopicon Urinalysis, Microscopic 4+ [facility] Work Phone: Urinalysis, Microscopic 1+ Abnormal [facility] Work Phone: Urinalysis, Microscopic 1 {/HPF} [facility] [place] Work Phone: Urinalysis, Microscopic none 0-5 [facility] [place] Work Phone: VENOUS FULL PANELon 08-30-19 23 Anion gap [Moles/Vol] 6 mmol/L Low 10 - 25 [facility] Comment on above: Order Comment: CRIT SOD CALLED RB TO DAVE RILEY., 08/29/2022 03:32 Performed By: #### G ZOHREH #### [facility] [address] [place] [address] BASE EXCESS-BLOOD 9.3 mmol/L High -2.0 - 3.0 [facility] Comment on above: Order Comment: CRIT SOD CALLED RB TO DAVE RILEY., 08/29/2022 03:32 Performed By: #### G ZOHREH #### [facility] [address] [place] [address] BICARB, CALCULATED 34.3 mmol/L High 22.0 - 26.0 [facility] Comment on above: Order Comment: CRIT SOD CALLED RB TO DAVE RILEY., 08/29/2022 03:32 Performed By: #### G ZOHREH #### [facility] [address] [place] [address] CALCIUM,IONIZED 0.98 mmol/L Low 1.10 - 1.33 [facility] Comment on above: Order Comment: CRIT SOD CALLED RB TO DAVE RILEY., 08/29/2022 03:32 Performed By: #### G ZOHREH #### [facility] [address] [place] [address] Chloride [Moles/Vol] 82 mmol/L Low 98 - 107 [facility] Comment on above: Order Comment: CRIT SOD CALLED RB TO DAVE RILEY., 08/29/2022 03:32 Performed By: #### G ZOHREH #### [facility] [address] [place] [address] FIO2 21 % Normal [facility] Comment on above: Order Comment: CRIT SOD CALLED RB TO DAVE RILEY., 08/29/2022 03:32 Performed By: #### G ZOHREH #### [facility] [address] [place] [address] Glucose [Mass/Vol] 133 mg/dL High 74 - 99 [facility] Comment on above: Order Comment: CRIT SOD CALLED RB TO DAVE RILEY., 08/29/2022 03:32 Performed By: #### G ZOHREH #### [facility] [address] [place] [id number] Hematocrit (Bld) [Volume fraction] 45.0 % Normal 41.0 - 52.0 [facility] Comment on above: Order Comment: CRIT SOD CALLED RB TO DAVE RILEY., 08/29/2022 03:32 Performed By: #### G ZOHREH #### [facility] [address] [place] [id number] Hemoglobin (Bld) [Mass/Vol] 15.1 g/dL Normal 13.5 - 17.5 [facility] Comment on above: Order Comment: CRIT SOD CALLED RB TO DAVE RILEY., 08/29/2022 03:32 Performed By: #### G ZOHREH #### [facility] [address] [place] [id number] Lactate [Moles/Vol] 3.2 mmol/L High 0.4 - 2.0 [facility] Comment on above: Order Comment: CRIT SOD CALLED RB TO REGULO MICHAELSDAVE., 08/29/2022 03:32 Performed By: #### G ZOHREH #### [facility] [address] [place] [id number] OXY HGB 42.2 % Low 45.0 - 75.0 [facility] Comment on above: Order Comment: CRIT SOD CALLED RB TO DAVE RILEY., 08/29/2022 03:32 Performed By: #### G ZOHREH #### [facility] [address] [place] [id number] Oxygen (Bld) [Partial pressure] 27 mm[Hg] Low 35 - 45 [facility] Comment on above: Order Comment: CRIT SOD CALLED RB TO DAVE RILEY., 08/29/2022 03:32 Performed By: #### G ZOHREH #### [facility] [address] [place] [id number] PATIENT TEMPERATURE 37.0 degrees C Normal [facility] Comment on above: Order Comment: CRIT SOD CALLED RB TO DAVE RILEY., 08/29/2022 03:32 Result Comment: NOTE : PATIENT RESULTS ARE NOT CORRECTED FOR TEMPERATURE. Performed By: #### G ZOHREH #### [facility] [address] [place] [address] PCO2 46 mmHg Normal 41 - 51 [facility] Comment on above: Order Comment: CRIT SOD CALLED RB TO DAVE RILEY., 08/29/2022 03:32 Performed By: #### G ZOHREH #### [facility] [address] [place] [address] pH (Bld) 7.48 [pH] High 7.33 - 7.43 [facility] Comment on above: Order Comment: CRIT SOD CALLED RB TO DAVE RILEY., 08/29/2022 03:32 Performed By: #### G ZOHREH #### [facility] [address] [place] [address] Potassium [Moles/Vol] 3.2 mmol/L Low 3.5 - 5.3 [facility] Comment on above: Order Comment: CRIT SOD CALLED RB TO DAVE RILEY., 08/29/2022 03:32 Performed By: #### G ZOHREH #### [facility] [address] [place] [address] SO2 43 % Low 45 - 75 [facility] Comment on above: Order Comment: CRIT SOD CALLED RB TO DAVE RILEY., 08/29/2022 03:32 Performed By: #### G ZOHREH #### [facility] [address] [place] [address] Sodium [Moles/Vol] 119 mmol/L Critically low 136 - 145 [facility] Comment on above: Order Comment: CRIT SOD CALLED RB TO DAVE RILEY., 08/29/2022 03:32 Result Comment: CRIT SOD CALLED RB TO DAVE RILEY., 08/29/2022 03:32 Performed By: #### G ZOHREH #### [facility] [address] [place] [address] Vital signson 08-29-2022 Oxygen saturation in Venous blood 43 % below low threshold 45 - 75 [facility] Work Phone: Alcohol, Serumon 08-28-2022 Ethanol [Mass/Vol] mg/dL [facility] Work Phone: Comment on above: FOR MEDICAL USE ONLY . .REF VALUES <10 BNPon 08-28-2022 Natriuretic peptide B (Bld) [Mass/Vol] 111 pg/mL High 0 - 99 [facility] Comment on above: Result Comment: . <1 00 pg/mL - Heart failure unlikely 100-299 pg/mL - Intermediate probability of acute heart . failure exacerbation. Correlate with clinical . context and patient history. >=300 pg/mL - Heart Failure likely. Correlate with clinical . context and patient history. BNP testing is performed using different testing methodology at [facility] than at other [facility]. Direct result comparisons should only be made within the same method. Performed By: #### M David #### [facility] [address] [place] [address] CBC AND DIFFERENTIALon 08-28 % AUTOMATED IMMATURE GRAN 0.4 % Normal 0.0 - 0.9 [facility] Comment on above: Result Comment: Robyn ture Granulocyte Count (IG) includes promyelocytes, myelocytes and metamyelocytes but does not include bands. Percent differential counts (%) should be interpreted in the context of the absolute cell counts (cells/L). Performed By: #### G ZOHREH #### [facility] [address] [place] [address] Basophils (Bld) [#/Vol] 0.04 10*3/uL Normal 0.00 - 0.10 [facility] Comment on above: Performed By: #### G ZOHREH #### [facility] [address] [place] [address] Basophils/100 WBC (Bld) 0.4 % Normal 0.0 - 2.0 [facility] Comment on above: Performed By: #### G ZOHREH #### [facility] [address] [place] [address] Erythrocyte distribution width (RBC) [Ratio] 14.4 % Normal 11.5 - 14.5 [facility] Comment on above: Performed By: #### G ZOHREH #### [facility] [address] [place] [address] Hematocrit (Bld) [Volume fraction] 32.3 % Low 41.0 - 52.0 [facility] Comment on above: Performed By: #### G ZOHREH #### [facility] [address] [place] [address] Hemoglobin (Bld) [Mass/Vol] 11.6 g/dL Low 13.5 - 17.5 [facility] Comment on above: Performed By: #### G ZOHREH #### [facility] [address] [place] [address] Lymphocytes (Bld) [#/Vol] 0.22 10*3/uL Low 0.80 - 3.00 [facility] Comment on above: Performed By: #### G ZOHREH #### [facility] [address] [place] [address] Lymphocytes/100 WBC (Bld) 2.3 % Normal 13.0 - 44.0 [facility] Comment on above: Performed By: #### G ZOHREH #### [facility] [address] [place] [address] MCHC (RBC) [Mass/Vol] 35.9 g/dL Normal 32.0 - 36.0 [facility] Comment on above: Performed By: #### G ZOHREH #### [facility] [address] [place] [address] MCV (RBC) [Entitic vol] 98 fL Normal 80 - 100 [facility] Comment on above: Performed By: #### G ZOHREH #### [facility] [address] [place] [address] Monocytes (Bld) [#/Vol] 0.29 10*3/uL Normal 0.05 - 0.80 [facility] Comment on above: Performed By: #### G ZOHREH #### [facility] [address] [place] [address] Monocytes/100 WBC (Bld) 3.1 % Normal 2.0 - 10.0 [facility] Comment on above: Performed By: #### G ZOHREH #### [facility] [address] [place] [address] Neutrophils (Bld) [#/Vol] 8.87 10*3/uL High 1.60 - 5.50 [facility] Comment on above: Performed By: #### G ZOHREH #### [facility] [address] [place] [address] Neutrophils/100 WBC (Bld) 93.8 % Normal 40.0 - 80.0 [facility] Comment on above: Performed By: #### G ZOHREH #### [facility] [address] [place] [address] Platelets (Bld) [#/Vol] 141 10*3/uL Low 150 - 450 [facility] Comment on above: Performed By: #### G ZOHREH #### [facility] [address] [place] [address] RBC 3.30 x10E12/L Low 4.50 - 5.90 [facility] Comment on above: Performed By: #### G ZOHREH #### [facility] [address] [place] [address] WBC (Bld) [#/Vol] 9.5 10*3/uL Normal 4.4 - 11.3 [facility] Comment on above: Performed By: #### G ZOHREH #### [facility] [address] [place] [address] COAGULATION SCREENon 08-28-2 023 aPTT Coag (Bld) [Time] 31 s Normal 26 - 39 [facility] Comment on above: Result Comment: THE APTT IS NO LONGER USED FOR MONITORING UNFRACTIONATED HEPARIN THERAPY. FOR MONITORING HEPARIN THERAPY, USE THE HEPARIN ASSAY. Performed By: #### C OAGS #### [facility] [address] [place] [address] PT Coag (PPP) [Time] 10.9 s Normal 9.8 - 13.4 [facility] Comment on above: Performed By: #### C OAGS #### [facility] [address] [place] [address] PT, INR 0.9 Normal 0.9 - 1.1 [facility] Comment on above: Performed By: #### C OAGS #### [facility] [address] [place] [address] COMPREHENSIVE PANELon 2022 Albumin [Mass/Vol] 4.2 g/dL Normal 3.4 - 5.0 [facility] Comment on above: Performed By: #### G ZOHREH #### [facility] [address] [place] [address] ALP [Catalytic activity/Vol] 174 U/L High 33 - 136 [facility] Comment on above: Performed By: #### G ZOHREH #### [facility] [address] [place] [address] ALT [Catalytic activity/Vol] 46 U/L Normal 10 - 52 [facility] Comment on above: Result Comment: Raysa ents treated with Sulfasalazine may generate falsely decreased results for ALT. Performed By: #### G ZOHREH #### [facility] [address] [place] [address] Anion gap [Moles/Vol] 19 mmol/L Normal 10 - 20 [facility] Comment on above: Performed By: #### G ZOHREH #### [facility] [address] [place] [address] AST [Catalytic activity/Vol] 127 U/L High 9 - 39 [facility] Comment on above: Result Comment: MILD HEMOLYSIS DETECTED. The result may be falsely elevated due to hemolysis or other interferents. Clinical correlation is recommended. Repeat testing may be considered. Performed By: #### G ZOHREH #### [facility] [address] [place] [address] Bilirubin [Mass/Vol] 4.9 mg/dL High 0.0 - 1.2 [facility] Comment on above: Performed By: #### G ZOHREH #### [facility] [address] [place] [address] Calcium [Mass/Vol] 8.7 mg/dL Normal 8.6 - 10.3 [facility] Comment on above: Performed By: #### G ZOHREH #### [facility] [address] [place] [address] Chloride [Moles/Vol] 79 mmol/L Low 98 - 107 [facility] Comment on above: Performed By: #### G ZOHREH #### [facility] [address] [place] [address] Creatinine [Mass/Vol] 0.59 mg/dL Normal 0.50 - 1.30 [facility] Comment on above: Performed By: #### G ZOHREH #### [facility] [address] [place] [address] eGFR MALE >90 Normal >90 [facility] Comment on above: Result Comment: CALC ULATIONS OF ESTIMATED GFR ARE PERFORMED USING THE 2020 CKD-EPI STUDY REFIT EQUATION WITHOUT THE RACE VARIABLE FOR THE IDMS-TRACEABLE CREATININE METHODS. https://jasn.asnjournals.org/content/early//ASN.64825 66862 Performed By: #### G ZOHREH #### [facility] [address] [place] [address] Glucose [Mass/Vol] 122 mg/dL High 74 - 99 [facility] Comment on above: Performed By: #### G ZOHREH #### [facility] [address] [place] [address] HCO3 (Bld) [Moles/Vol] 29 mmol/L Normal 21 - 32 [facility] Comment on above: Performed By: #### G ZOHREH #### [facility] [address] [place] [address] Potassium [Moles/Vol] 3.5 mmol/L Normal 3.5 - 5.3 [facility] Comment on above: Result Comment: MILD HEMOLYSIS DETECTED. The result may be falsely elevated due to hemolysis or other interferents. Clinical correlation is recommended. Repeat testing may be considered. Performed By: #### G ZOHREH #### [facility] [address] [place] [address] Protein [Mass/Vol] 7.4 g/dL Normal 6.4 - 8.2 [facility] Comment on above: Performed By: #### G ZOHREH #### [facility] [address] [place] [address] Sodium [Moles/Vol] 123 mmol/L Low 136 - 145 [facility] Comment on above: Performed By: #### G ZOHREH #### [facility] [address] [place] [id number] Urea nitrogen [Mass/Vol] 10 mg/dL Normal 6 - 23 [facility] Comment on above: Performed By: #### G ZOHREH #### [facility] [address] [place] [id number] CORONAVIRUS 2019, SCREEN ASY MPTOMATICon 08-28-2022 SARS-CoV-2 (COVID-19) RNA NEVIN+probe Ql (Unsp spec) Not detected Normal Not Detected [facility] Comment on above: Result Comment: . This test has received FDA Emergency Use Authorization (EUA) and has been verified by [facility]. This test is only authorized for the duration of time that circumstances exist to justify the authorization of the emergency use of in vitro diagnostic tests for the detection of SARS-CoV-2 virus and/or diagnosis of COVID-19 infection under section 564(b)(1) of the Act, 21 U.S.C. 360bbb-3(b)(1), unless the authorization is terminated or revoked sooner. [facility] is certified under CLIA-88 as qualified to perform high complexity testing. Testing is performed in the [facility] laboratory located at [address] [place] [address]. SARS-CoV-2/Flu/RSV Multiplex Test: Fact sheet for providers: https://www.fda.gov/media/984034/download Fact sheet for patients: https://www.fda.gov/media/357032/download Performed By: #### V TB12 #### [facility] [address] [place] [address] Lab Specimen Source Nasal, Nasopharyngeal Normal [facility] Comment on above: Performed By: #### V TB12 #### [facility] [address] [place] [address] CT CHEST ABDOMEN PELVIS W IV CONTRASTon 08-28-2022 CT CHEST ABDOMEN PELVIS W IV CONTRAST Patient Name: CHRISTOS LYONS STUDY: CT CHEST ABDOMEN PELVIS W IV CONTRAST; ; 08/28/2022 8:20 pm INDICATION: pain scleral icterus fatigue dysphagia . COMPARISON: None. 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 Skxr-et-lihlrjqt discogenic degeneration in the remaining visible spine. [...] presacral regio (more content not included)... Normal [facility] CT Chest Abdomen Pelvis with IV Contraston 08-28-2022 CT Chest and Abdomen and Pelvis W contrast IV Normal [facility] Work Phone: Complete Blood Count + Diffe prabha 08-28-2022 Basophils/100 WBC (Bld) 0.4 % 0.0 - 2.0 [facility] Work Phone: Erythrocyte distribution width (RBC) [Ratio] 14.4 % See Below [facility] Work Phone: Comment on above: Reference Range: 11. 5 - 14.5 Hematocrit (Bld) [Volume fraction] 32.3 % below low threshold See Below [facility] Work Phone: Comment on above: Reference Range: 41. 0 - 52.0 Hemoglobin (Bld) [Mass/Vol] 11.6 g/dL below low threshold See Below [facility] Work Phone: Comment on above: Reference Range: 13. 5 - 17.5 Lymphocytes/100 WBC (Bld) 2.3 % See Below [facility] Work Phone: Comment on above: Reference Range: 13. 0 - 44.0 MCHC (RBC) [Mass/Vol] 35.9 g/dL See Below [facility] Work Phone: Comment on above: Reference Range: 32. 0 - 36.0 MCV (RBC) [Entitic vol] 98 fL 80 - 100 [facility] Work Phone: Monocytes/100 WBC (Bld) 3.1 % 2.0 - 10.0 [facility] Work Phone: Neutrophils/100 WBC (Bld) 93.8 % See Below [facility] Work Phone: Comment on above: Reference Range: 40. 0 - 80.0 Platelets (Bld) [#/Vol] 141 10*3/uL below low threshold 150 - 450 [facility] Work Phone: RBC (Bld) [#/Vol] 3.30 {x10E12/L} below low threshold See Below [facility] Work Phone: Comment on above: Reference Range: 4.5 0 - 5.90 WBC (Bld) [#/Vol] 9.5 10*3/uL 4.4 - 11.3 [facility] Work Phone: Complete Blood Count + Differential 0.04 {x10E9/L} See Below [facility] Work Phone: Comment on above: Reference Range: 0.0 0 - 0.10 Complete Blood Count + Differential 0.29 {x10E9/L} See Below [facility] Work Phone: Comment on above: Reference Range: 0.0 5 - 0.80 Complete Blood Count + Differential 0.22 {x10E9/L} below low threshold See Below [facility] Work Phone: Comment on above: Reference Range: 0.8 0 - 3.00 Complete Blood Count + Differential 8.87 {x10E9/L} above high threshold See Below [facility] Work Phone: Comment on above: Reference Range: 1.6 0 - 5.50 Complete Blood Count + Differential 0.4 % 0.0 - 0.9 [facility] Work Phone: Comment on above: Immature Granulocyte Count (IG) includes promyelocytes, myelocytes and metamyelocytes but does not include bands. Percent differential counts (%) should be interpreted in the context of the absolute cell counts (cells/L). Coronavirus 2019 RNA by PCR, Screening Asymptomticon 08-28-2022 Coronavirus 2019 RNA by PCR, Screening Asymptomtic Not detected Normal See Below [facility] Work Phone: Comment on above: SOURCE: Nasal, Nasop haryngealReference Range: Not Detected.This test has received FDA Emergency Use Authorization (EUA) and has been verified by [facility]. This test is only authorized for the duration of time that circumstances exist to justify the authorization of the emergency use of in vitro diagnostic tests for the detection of SARS-CoV-2 virus and/or diagnosis of COVID-19 infection under section 564(b)(1) of the Act, 21 U.S.C. 360bbb-3(b)(1), unless the authorization is terminated or revoked sooner. [facility] is certified under CLIA-88 as qualified to perform high complexity testing. Testing is performed in the [facility] laboratory located at [address] [place] [address].SARS-CoV-2/Flu/RSV Multiplex Test: Fact sheet for providers: https://www.fda.gov/media/458461/downloadFact sheet for patients: https://www.fda.gov/media/749038/download Covid 19 Resultson 3 SARS-CoV-2 (COVID-19) RNA [...] You may also be contacted by the [facility] to see if any of your close [...] or Naproxen (Aleve) can also be used. Qnnt-znf-gmjjszb cough and cold medicines can be used according to the instructions on the package. Some fcyc-yxj-cddpgrh medicines also contain acetaminophen. Make sure you [...] water are not available, use alcohol-based hand pull up hand. Avoid touching your eyes, nose, and mouth [...] 24 roderick (more content not included)... Normal [facility] Laboratory - Chemistry and C hemistry - challengeon 08-28-2022 Anion gap 4 (BldV) [Moles/Vol] 7 mmol/L below low threshold 10 - 25 [facility] Work Phone: Base excess Calc (BldV) [Moles/Vol] 6.9 mmol/L above high threshold -2.0 - 3.0 [facility] Work Phone: Calcium.ionized (BldV) [Moles/Vol] 0.98 mmol/L below low threshold See Below [facility] Work Phone: Comment on above: Reference Range: 1.1 0 - 1.33 Chloride (BldV) [Moles/Vol] 89 mmol/L below low threshold 98 - 107 [facility] Work Phone: CO2 (BldV) [Partial pressure] 43 mm[Hg] 41 - 51 [facility] Work Phone: Glucose [Mass/Vol] 118 mg/dL above high threshold 74 - 99 [facility] Work Phone: HCO3 (Bld) [Moles/Vol] 31.3 mmol/L above hig h threshold See Below [facility] Work Phone: Comment on above: Reference Range: 22. 0 - 26.0 Lactate (BldV) [Moles/Vol] 3.2 mmol/L above high threshold 0.4 - 2.0 [facility] Work Phone: Oxygen (BldV) [Partial pressure] 26 mm[Hg] below low threshold 35 - 45 [facility] Work Phone: Oxyhemoglobin (BldV) [Mass fraction] 26.6 % below low threshold See Below [facility] Work Phone: Comment on above: Reference Range: 45. 0 - 75.0 pH (BldV) 7.47 [pH] above high threshold See Below [facility] Work Phone: Comment on above: Reference Range: 7.3 3 - 7.43 Potassium (BldV) [Moles/Vol] 2.9 mmol/L Critically low 3.5 - 5.3 [facility] Work Phone: Comment on above: RB TO JOSE PUGA, 19:40 Sodium (BldV) [Moles/Vol] 124 mmol/L below low threshold 136 - 145 [facility] [facility] Work Phone: Albumin BCP dye [Mass/Vol] 4.2 g/dL 3.4 - 5.0 [facility] Work Phone: ALP [Catalytic activity/Vol] 174 U/L above high threshold 33 - 136 [facility] Work Phone: ALT With P-5'-P [Catalytic activity/Vol] 46 U/L 10 - 52 [facility] Work Phone: Comment on above: Patients treated wit h Sulfasalazine may generate falsely decreased results for ALT. Anion gap [Moles/Vol] 19 mmol/L 10 - 20 [facility] Work Phone: AST With P-5'-P [Catalytic activity/Vol] 127 U/L above high threshold 9 - 39 [facility] Work Phone: Comment on above: MILD HEMOLYSIS DETEC ROHITH. The result may be falsely elevated due tohemolysis or other interferents. Clinical correlation is recommended.Repeat testing may be considered. Bilirubin [Mass/Vol] 4.9 mg/dL above high threshold 0.0 - 1.2 [facility] Work Phone: Calcium [Mass/Vol] 8.7 mg/dL 8.6 - 10.3 [facility] Work Phone: Chloride [Moles/Vol] 79 mmol/L below low threshold 98 - 107 [facility] Work Phone: CO2 [Moles/Vol] 29 mmol/L 21 - 32 [facility] Work Phone: Creatinine [Mass/Vol] 0.59 mg/dL See Below [facility] Work Phone: Comment on above: Reference Range: 0.5 0 - 1.30 Glucose [Mass/Vol] 122 mg/dL above high threshold 74 - 99 [facility] Work Phone: Natriuretic peptide B (Bld) [Mass/Vol] 111 pg/mL above high threshold 0 - 99 [facility] Work Phone: Comment on above: . <100 pg/mL - Heart failure xynnsoxx156-533 pg/mL - Intermediate probability of acute heart. failure exacerbation. Correlate with clinical. context and patient history. >=300 pg/mL - Heart Failure likely. Correlate with clinical. context and patient history.BNP testing is performed using different testing methodology at [facility] than at other [facility]. Direct result comparisons should only be made within the same method. Potassium [Moles/Vol] 3.5 mmol/L 3.5 - 5.3 [facility] Work Phone: Comment on above: MILD HEMOLYSIS DETEC ROHITH. The result may be falsely elevated due tohemolysis or other interferents. Clinical correlation is recommended.Repeat testing may be considered. Protein [Mass/Vol] 7.4 g/dL 6.4 - 8.2 [facility] Work Phone: Sodium [Moles/Vol] 123 mmol/L below low threshold 136 - 145 [facility] Work Phone: Urea nitrogen [Mass/Vol] 10 mg/dL 6 - 23 [facility] Work Phone: Laboratory - Coagulationon 0 - aPTT Coag (PPP) [Time] 31 s 26 - 39 [facility] Work Phone: Comment on above: THE APTT IS NO LONGE R USED FOR MONITORING UNFRACTIONATED HEPARIN THERAPY. FOR MONITORING HEPARIN THERAPY, USE THE HEPARIN ASSAY. INR Coag (PPP) [Relative time] 0.9 {INR} 0.9 - 1.1 [facility] Work Phone: PT Coag (PPP) [Time] 10.9 s 9.8 - 13.4 MP-U niv [facility] Work Phone: Laboratory - Hematology and Cell countson 08-28-2022 Hematocrit Est (Bld) [Volume fraction] 34.0 % below low threshold See Below -Univ [facility] Work Phone: Comment on above: Reference Range: 41. 0 - 52.0 Hemoglobin (Bld) [Mass/Vol] 11.4 g/dL below low threshold See Below -Univ [facility] Work Phone: Comment on above: Reference Range: 13. 5 - 17.5 MAGNESIUMon 08-28-2022 Magnesium [Mass/Vol] 1.80 mg/dL Normal 1.60 - 2.40 [facility] Comment on above: Performed By: #### M G #### [facility] [address] [place] [address] Magnesium, Serumon Magnesium [Mass/Vol] 1.80 mg/dL See Below MP-U [facility] Work Phone: Comment on above: Reference Range: 1.6 0 - 2.40 No Panel Informationon 08-28 Inhaled oxygen concentration 21 % [facility] Work Phone: >90 >90 -[facility] Work Phone: Comment on above: CALCULATIONS OF ROSANA MATED GFR ARE PERFORMED USING THE 2020 CKD-EPI STUDY REFIT EQUATION WITHOUT THE RACE VARIABLE FOR THE IDMS-TRACEABLE CREATININE METHODS.https://jasn.asnjournals.org/content//A SN.1395881371 PHOSPHORUSon 08-28-2022 Phosphate [Mass/Vol] 2.0 mg/dL Low 2.5 - 4.9 [facility] Comment on above: Result Comment: [...] may be considered. Performed By: #### R ENLINDA #### [facility] [address] [place] [address] Phosphorus, Serumon 08-29-19 Phosphate [Mass/Vol] 2.0 mg/dL below low threshold 2.5 - 4.9 [facility] Work Phone: Comment on above: The [...] SENSITIVITY 10 ng/L Normal 0 - 20 [facility] Comment on above: Result Comment: . Less [...] performed using a different testing methodology at [facility] than at other [facility]. Direct result comparisons should only be made within the same method. Performed By: #### M G #### [facility] [address] [place] [address] Tropinin I.cardiac panel High sensitivity method 10 ng/L 0 - 20 [facility] Work Phone: Comment on above: .Less [...] performed using a different testing methodology at [facility] than at other [facility]. Direct result comparisons should only be made [...] Arrival: stretcher Mode of Arrival: ambulance Agency: [facility] Agency Name: [facility] Arrival From: home Accompanied By: research physicist CHIEF COMPLAINT CHRISTOS LYONS is a Male [...] 28-Aug-2022 17:17 by Domenica Soto (EMT-P) Normal [facility] VENOUS FULL PANELon 08-29-19 23 Anion gap [Moles/Vol] 7 mmol/L Low 10 - 25 [facility] Comment on above: Order Comment: RB TO JOSE PUGA, 08/28/2022 19:40 Performed By: #### V FPA4 ####[id number] [place] [id number] BASE EXCESS-BLOOD 6.9 mmol/L High -2.0 - 3.0 [facility] Comment on above: Order Comment: RB TO JOSE PUGA, 08/28/2022 19:40 Performed By: #### V FPA4 ####[facility] [place] [id number] BICARB, CALCULATED 31.3 mmol/L High 22.0 - 26.0 [facility] Comment on above: Order Comment: RB TO JOSE PUGA, 08/28/2022 19:40 Performed By: #### V FPA4 ####[facility] [place] [id number] CALCIUM,IONIZED 0.98 mmol/L Low 1.10 - 1.33 [facility] Comment on above: Order Comment: RB TO JOSE PUGA, 08/28/2022 19:40 Performed By: #### V FPA4 ####[facility] [place] [id number] Chloride [Moles/Vol] 89 mmol/L Low 98 - 107 [facility] Comment on above: Order Comment: RB TO JOSE PUGA, 08/28/2022 19:40 Performed By: #### V FPA4 ####[facility] [place] [id number] FIO2 21 % Normal [facility] Comment on above: Order Comment: RB TO JOSE PUGA, 08/28/2022 19:40 Performed By: #### V FPA4 ####[facility] [place] [id number] Glucose [Mass/Vol] 118 mg/dL High 74 - 99 [facility] Comment on above: Order Comment: RB TO JOSE PUGA, 08/28/2022 19:40 Performed By: #### V FPA4 ####[id number] [place] [id number] Hematocrit (Bld) [Volume fraction] 34.0 % Low 41.0 - 52.0 [facility] Comment on above: Order Comment: RB TO JOSE PUGA, 08/28/2022 19:40 Performed By: #### V FPA4 ####[facility] [place] [address] Hemoglobin (Bld) [Mass/Vol] 11.4 g/dL Low 13.5 - 17.5 [facility] Comment on above: Order Comment: RB TO JOSE PUGA, 08/28/2022 19:40 Performed By: #### V FPA4 ####[id number] [place] [id number] Lactate [Moles/Vol] 3.2 mmol/L High 0.4 - 2.0 [facility] Comment on above: Order Comment: RB TO JOSE PUGA, 08/28/2022 19:40 Performed By: #### V FPA4 ####[facility] [place] [address] OXY HGB 26.6 % Low 45.0 - 75.0 [facility] Comment on above: Order Comment: RB TO JOSE PUGA, 08/28/2022 19:40 Performed By: #### V FPA4 ####[facility] [place] [address] Oxygen (Bld) [Partial pressure] 26 mm[Hg] Low 35 - 45 [facility] Comment on above: Order Comment: RB TO JOSE PUGA, 08/28/2022 19:40 Performed By: #### V FPA4 ####[facility] [id number] [place] [address] PATIENT TEMPERATURE 37.0 degrees C Normal [facility] Comment on above: Order Comment: RB TO JOSE PUGA, 08/28/2022 19:40 Result Comment: NOTE : PATIENT RESULTS ARE NOT CORRECTED FOR TEMPERATURE. Performed By: #### V FPA4 ####[facility] [place] [address] PCO2 43 mmHg Normal 41 - 51 [facility] Comment on above: Order Comment: RB TO JOSE PUGA, 08/28/2022 19:40 Performed By: #### V FPA4 ####[facility] [id number] [place] [address] pH (Bld) 7.47 [pH] High 7.33 - 7.43 [facility] Comment on above: Order Comment: RB TO JOSE PUGA, 08/28/2022 19:40 Performed By: #### V FPA4 ####[facility] [place] [address] Potassium [Moles/Vol] 2.9 mmol/L Critically low 3.5 - 5.3 [facility] Comment on above: Order Comment: RB TO JOSE PUGA, 08/28/2022 19:40 Result Comment: RB T O JOSE PUGA, 08/28/2022 19:40 Performed By: #### V FPA4 ####[facility] [place] [address] SO2 27 % Low 45 - 75 [facility] Comment on above: Order Comment: RB TO JOSE PUGA, 08/28/2022 19:40 Performed By: #### V FPA4 ####[facility] [place] [address] Sodium [Moles/Vol] 124 mmol/L Low 136 - 145 [facility] Comment on above: Order Comment: RB TO JOSE PUGA, 08/28/2022 19:40 Performed By: #### V FPA4 ####[facility] [place] [address] Vital signson 08-28-2022 Oxygen saturation in Venous blood 27 % below low threshold 45 - 75 [facility] Work Phone: Office Visit (Internal Medic [...] to RAYMOND LOERA #[id number]; Last Updated By: Splyst; 04/23/2020 2:56:43 PM Patient Discussion/Summary This visit [...] Facility 12-30-2022 07:56-0400 Body height 182.9 cm Kalyn Quinonez APRN [employer] Work Phone: [facility] 12-30-2022 07:56-0400 Body mass index (BMI) [Ratio] 29.02 kg/m2 Kalyn Quinonez APRN [employer] Work Phone: [facility] 12-30-2022 07:56-0400 Body temperature 97.9 [degF] Kalyn Garcia PROCESS AREA SUPERVISOR [employer] Work Phone: [facility] 12-30-2022 07:56-0400 Body weight 97.07 kg Kalyn Quinonez APRN [employer] Work Phone: [facility] 12-30-2022 07:56-0400 Diastolic blood pressure 72 mm[Hg] Kalyn Garcia PROCESS AREA SUPERVISOR [employer] Work Phone: [facility] 12-30-2022 07:56-0400 Heart rate 68 /min Kalynra Quinonez PROCESS AREA SUPERVISOR [employer] Work Phone: [facility] 12-30-2022 07:56-0400 Systolic blood pressure 122 mm[Hg] Kalyn [employer] PROCESS AREA SUPERVISOR [employer] Work Phone: [facility] 08-29-2022 03:23-0400 Body temperature 37.0 {degrees_C} Brian Jean [facility]: [facility] Work Phone: Comment on above: NOTE: PATIENT RESULTS ARE NOT CORRECTED FOR TEMPERATURE. 08-28-2022 19:20-0400 Body temperature 37.0 {degrees_C} Brian Eric Jean Work Phone: [facility] Work Phone: Comment on above: NOTE: PATIENT RESULTS ARE NOT CORRECTED FOR TEMPERATURE. Encounters Encounter Date Encounter Type Care Provider Facility Start: 02-15-2025 ambulatory Henry REID Facil ity:[facility] Start: 11-29-2024 ambulatory Henry REID Facil ity:[facility] Start: 11-29-2024 Registered Referred Henry Allyn [facility] [address] Start: 11-06-2024 End: 11-06-2024 ambulatory Henry Allyn [facility] -[facility] [address] Start: 11-06-2024 End: 11-06-2024 Departed Referred Henry Gruber -[facility] [address] Start: 11-06-2024 Registered Referred Henry diaz [place] - [address] Start: 11-06-2024 End: 11-06-2024 ambulatory Henry REID Facility:[facility] Start: 10-26-2024 End: 10-26-2024 ambulatory Henry REID -[facility] [address] Start: 10-26-2024 End: 10-26-2024 [facility] [place] [facility] [address] Start: 10-26-2024 End: 10-26-2024 ambulatory Henry REID Facility:[facility] Start: 08-07-2024 End: 08-07-2024 ambulatory Henry REID Facility:[facility] Start: 06-05-2024 End: 06-29-2024 Telephone encounter Barron Giraldo MD Work Phone: [facility] Clinical Communication Comment on above: Cancelled Appointmen t Start: 06-05-2024 ambulatory Henry REID Facil ity:[facility] Start: 05-24-2024 End: 05-24-2024 Telephone encounter Barron Giraldo MD Work Phone: [facility] Start: 05-10-2024 ambulatory Henry REID Facil ity:[facility] Start: 04-12-2024 End: 04-12-2024 ambulatory Henry REID Facility:[facility] Start: 06-09-2023 End: 06-09-2023 ambulatory [facility] Work Phone: Start: 06-09-2023 End: 06-09-2023 Departed Referred [facility] - [address] Start: 05-10-2023 End: 05-10-2023 ambulatory [facility] Work Phone: Start: 05-10-2023 End: 05-10-2023 Departed [facility] [address] Start: 04-29-2023 Telephone encounter Kalyn hart PROCESS AREA SUPERVISOR - ASSET RECOVERY SPECIALIST Work Phone: [facility] Gastroenterology Comment on above: Scheduling Start: 03-11-2023 End: 03-11-2023 ambulatory [facility] Work Phone: Start: 03-11-2023 End: 03-11-2023 Departed Referred [facility] [place] [facility] [address] Start: 01-17-2023 End: 01-17-2023 [facility] [address] Start: 01-17-2023 Registered [facility] [place] [facility] [address] Start: 01-13-2023 End: 01-13-2023 ambulatory [facility] Work Phone: Start: 01-13-2023 End: 01-13-2023 Departed Referred [facility] [place] [facility] [address] Start: 01-13-2023 Registered Referred [facility] - [address] Start: 01-05-2023 End: 01-05-2023 ambulatory [facility] Work Phone: Start: 01-05-2023 End: 01-05-2023 [facility] [place] [facility] [address] Start: 01-05-2023 Registered Referred [facility] [place] [facility] [address] Start: 01-03-2023 End: 01-03-2023 ambulatory [facility] Work Phone: Start: 01-03-2023 End: 01-03-2023 [facility]ed [facility] [address] Start: 12-30-2022 End: 12-30-2022 Office outpatient new 45 minutes Kalyn Quinonez PROCESS AREA SUPERVISOR - ASSET RECOVERY SPECIALIST Work Phone: [facility] Gastroenterology Comment on above: Elevated LFTs (Prima ry Dx); Abnormal CT of liver; History of alcohol abuse; Incontinence of feces, unspecified fecal incontinence type Start: 10-25-2022 End: 10-25-2022 Office outpatient new 45 minutes Barron Giraldo MD Work Phone: [facility] Urology Comment on above: Elevated PSA (Primar y Dx); BPH with urinary obstruction Start: 10-18-2022 End: 10-18-2022 ambulatory [facility] Work Phone: Start: 10-18-2022 End: 10-18-2022 Departed Referred [facility] - [address] Start: 10-01-2022 End: 10-01-2022 ambulatory [facility] Work Phone: Start: 10-01-2022 End: 10-01-2022 Departed Referred [facility] - [address] Start: 09-20-2022 Registered Referred [facility] - [address] Start: 09-15-2022 Registered Referred [facility] - [address] Start: 09-13-2022 Registered Referred [facility] - [address] Start: 09-07-2022 Chart Update Brian Jean Work Phone[facility] Work Phone: Start: 09-06-2022 Registered Referred [facility] - [address] Start: 08-29-2022 End: 09-04-2022 Evaluation and management of inpatient Dr. Polo Sanchez [place] Procedures Date Procedure Procedure Detail Performing Clinician Start: 11-29-2024 Vitamin D, 25-hydrox y measurement Henry REID Comment on above: Vitamin D StatusDefi ciency: <20 ng/mL (50nmol/L)Insufficiency: 20-30 ng/mL (50-75 nmol/L)Sufficiency: 30-100 ng/mL (75-250 nmol/L)Toxicity: >100 ng/mL (>250 nmol/L) Start: 11-06-2024 Vitamin D, 25-hydrox y measurement Henry REID Comment on above: Vitamin D StatusDefi ciency: <20 ng/mL (50nmol/L)Insufficiency: 20-30 ng/mL (50-75 nmol/L)Sufficiency: 30-100 ng/mL (75-250 nmol/L)Toxicity: >100 ng/mL (>250 nmol/L)Previous reported result: 36.2 ng/mLEdited by: ENMANUEL on 11/06/24:1315 AMENDED REPORT 11/06/24 1315 Vitamin D 25-OH previously reported as: 36.2 ng/mL Vitamin D StatusDeficiency: <20 ng/mL (50nmol/L)Insufficiency: 20-30 ng/mL (50-75 nmol/L)Sufficiency: 30-100 ng/mL (75-250 nmol/L)Toxicity: >100 ng/mL (>250 nmol/L) Start: 10-26-2024 Vitamin D, 25-hydrox y measurement Henry REID Comment on above: Vitamin D StatusDefi ciency: <20 ng/mL (50nmol/L)Insufficiency: 20-30 ng/mL (50-75 nmol/L)Sufficiency: 30-100 ng/mL (75-250 nmol/L)Toxicity: >100 ng/mL (>250 nmol/L) Start: 10-01-2022 Investigation of transfusion reaction Start: 10-01-2022 Microbial culture, routine Start: 08-31-2022 Echocardiography Christos Jean Work Phone: Microbial culture, routine NEGATED: Highlighted row has not occurred! Denies Prior Surgical Procedure Not Done Brian Jean Work Phone: Plan of Treatment Date Care Activity Detail Author Start: 06-11-2024 End: 06-11-2024 Patient encounter procedure 06/11/2024 11:50 AM EST Office Visit [facility] [place] [address] [place] [address] Barron Giraldo MD [address] [place] [address] [facility] Start: 05-09-2024 Medicare [facility] Annual Wellness Visit Medicare Advantage Annual Wellness Visit [facility] Start: 01-08-2024 COVID-19 Vaccine ( season) COVID-19 Vaccine ( season) [facility] Start: 01-08-2024 Influenza vaccination Influenza Vaccine (#1) [facility] Start: 05-16-2023 End: 05-16-2023 Patient encounter procedure 05/16/2023 9:30 AM EST Office Visit [facility] [address] [place] [address] Barron Giraldo MD [address] [place] [address] [facility] Start: 05-09-2023 Medicare Advantage Annual Wellness Visit Medicare Advantage Annual Wellness Visit [facility] Start: 04-26-2023 End: 10-26-2023 PSA Total PSA Total Lab Routine Elevated PSA Expected: 04/26/2023 (Approximate), Expires: 10/26/2023 [facility] [employer] [facility] Work Phone: Comment on above: Expected: 04/26/2023 (Approximate), Expi res: 10/26/2023 Start: 01-07-2023 COVID-19 Vaccine () COVID-19 Vaccine () [facility] [employer] Start: 01-07-2023 Influenza vaccination [facility] Start: 12-30-2022 End: 12-31-2023 Anti-smooth muscle antibody titer Anti-smooth muscle antibody titer Lab Routine Elevated LFTs Expected: 12/30/2022 (Approximate), Expires: 12/31/2023 [facility] [employer] Comment on above: Expected: 12/30/2022 (Approximate), Expi res: 12/31/2023 Start: 12-30-2022 End: 12-31-2023 Antimitochondrial antibody Antimitochondrial antibody Lab Routine Elevated LFTs Expected: 12/30/2022 (Approximate), Expires: 12/31/2023 [facility] Comment on above: Expected: 12/30/2022 (Approximate), Expi res: 12/31/2023 Start: 12-30-2022 End: 12-31-2023 CBC panel - Blood by Automated count CBC Lab Routine Elevated LFTs Abnormal CT of liver Expected: 12/30/2022 (Approximate), Expires: 12/31/2023 [facility] Comment on above: Expected: 12/30/2022 (Approximate), Expi res: 12/31/2023 Start: 12-30-2022 End: 12-31-2023 Comprehensive metabolic 1998 panel - Serum or Plasma Comprehensive metabolic panel Lab Routine Elevated LFTs Expected: 12/30/2022 (Approximate), Expires: 12/31/2023 [facility] Comment on above: Expected: 12/30/2022 (Approximate), Expi res: 12/31/2023 Start: 12-30-2022 End: 12-31-2023 Creatinine [Mass/volume] in Serum or Plasma Creatinine, Serum Lab Routine Elevated LFTs Abnormal CT of liver Expected: 12/30/2022 (Approximate), Expires: 12/31/2023 [facility] Comment on above: Expected: 12/30/2022 (Approximate), Expi res: 12/31/2023 Start: 12-30-2022 End: 12-31-2023 Ferritin [Mass/volume] in Serum or Plasma Ferritin Lab Routine Elevated LFTs Expected: 12/30/2022 (Approximate), Expires: 12/31/2023 [facility] [employer] Comment on above: Expected: 12/30/2022 (Approximate), Expi res: 12/31/2023 Start: 12-30-2022 End: 12-31-2023 Hepatitis 1996 panel - Serum Hepatitis panel, acute Lab Routine Elevated LFTs Expected: 12/30/2022 (Approximate), Expires: 12/31/2023 [facility] [employer] Comment on above: Expected: 12/30/2022 (Approximate), Expi res: 12/31/2023 Start: 12-30-2022 End: 12-31-2023 Iron and Iron binding capacity panel - Serum or Plasma Iron and TIBC Lab Routine Elevated LFTs Expected: 12/30/2022 (Approximate), Expires: 12/31/2023 [facility] Comment on above: Expected: 12/30/2022 (Approximate), Expi res: 12/31/2023 Start: 12-30-2022 End: 12-31-2023 Liver-Kidney Microsome 1 Ab Liver-Kidney Microsome 1 Ab Lab Routine Elevated LFTs Expected: 12/30/2022 (Approximate), Expires: 12/31/2023 [facility] Comment on above: Expected: 12/30/2022 (Approximate), Expi res: 12/31/2023 Start: 12-30-2022 End: 12-31-2023 MR Abdomen WO and W contrast IV MR abdomen w and wo contrast Imaging Routine Elevated LFTs Abnormal CT of liver Expected: 12/30/2022, Expires: 12/31/2023 [facility] Work Phone: Comment on above: Expected: 12/30/2022, Expires: Start: 12-30-2022 End: 12-31-2023 Nuclear Ab [Titer] in Serum by Immunofluorescence BRANDON Lab Routine Elevated LFTs Expected: 12/30/2022 (Approximate), Expires: 12/31/2023 [facility] [employer] Comment on above: Expected: 12/30/2022 (Approximate), Expi res: 12/31/2023 Start: 12-30-2022 End: 12-31-2023 Pancreatic elastase, fecal Pancreatic elastase, fecal Lab Routine History of alcohol abuse Incontinence of feces, unspecified fecal incontinence type Expected: 12/30/2022 (Approximate), Expires: 12/31/2023 [facility] [employer] Comment on above: Expected: 12/30/2022 (Approximate), Expi res: 12/31/2023 Start: 12-30-2022 End: 12-31-2023 Prothrombin time (PT) in Blood by Coagulation assay Protime-INR Lab Routine Elevated LFTs Expected: 12/30/2022 (Approximate), Expires: 12/31/2023 [facility] [employer] Comment on above: Expected: 12/30/2022 (Approximate), Expi res: 12/31/2023 Start: 11-18-2022 End: 11-18-2022 Patient encounter procedure 11/18/2022 9:20 AM EDT [facility] [facility] [address] [place] [address] Kalyn Quinonez APRN [address] [place] [address] [facility] Start: 11-01-2022 NPV, Provider: Malou Bowen, Status: Pen, Time: 8:00 AM NPV, Provider: Malou Bowen, Status: Pen, Time: 8:00 AM [facility] Work Phone: Start: 08-18-2019 RSV Immunization for Adults (1 - 1-dose 75+ series) RSV Immunization for Adults (1 - 1-dose 75+ series) [facility] Start: 05-21-2014 DTaP/Tdap/Td Vaccines (1 - Tdap) DTaP/Tdap/Td Vaccines (1 - Tdap) [facility] Start: 2009 Pneumococcal Vaccine: 65+ Years (1 - PCV) Pneumococcal Vaccine: 65+ Years (1 - PCV) [facility] Start: 2009 Pneumococcal Vaccine: 65+ Years (1 of 1 - PCV) Pneumococcal Vaccine: 65+ Years (1 of 1 - PCV) [facility] Start: 2004 Hepatitis B Vaccines (1 of 3 - Risk 3-dose series) Hepatitis B Vaccines (1 of 3 - Risk 3-dose series) [facility] Start: 2004 RSV Immunization aged 60 or older (1 - 1-dose 60+ series) RSV Immunization aged 60 or older (1 - 1-dose 60+ series) [facility] Start: 1994 Zoster Vaccines (1 of 2) Zoster Vaccines (1 of 2) [facility] Start: 08-18-1963 Hepatitis A Vaccines (1 of 2 - Risk 2-dose series) Hepatitis A Vaccines (1 of 2 - Risk 2-dose series) [facility] Start: 08-18-1963 Pneumococcal Vaccine: 50+ Years (1 of 2 - PCV) Pneumococcal Vaccine: 50+ Years (1 of 2 - PCV) [facility] Start: 1962 Diabetes: Estimated Glomerular Filtration Rate for Kidney Health Diabetes: Estimated Glomerular Filtration Rate for Kidney Health [facility]: 1962 Diabetes: Urine Albumin-Creatinine Ratio for Kidney Health Diabetes: Urine Albumin-Creatinine Ratio for Kidney Health [facility] Start: 1962 Hepatitis C screening Hepatitis C Screening [facility] Start: 1956 Depression Screening Depression Screening [facility] Start: 02-16-1945 COVID-19 Vaccine (#1) COVID-19 Vaccine (#1) [facility] Start: 1944 Thyroid stimulating hormone measurement TSH Level [facility] Payers Date Payer Category Payer Unknown [id number] 2024 Medicaid [id number] 2024 Self-pay 2022 Medicare [employer] MED[employer]ARE UHC MEDICARE ADVANTAGE [id number] 2022-Present [id number] [place] [address] Medicare HMO [id number] 2022 Medicare HMO UHC MEDICARE ADV ANTAGE [id number] 1944 Unknown [id number] Medicare MEDICARE PART A B [id number] Private Health Insurance [id number] Unknown Unknown [id number] Unknown [id number] Unknown [id number] 462 Unknown [id number] 462 Unknown [id number] 462 Unknown [id number] 462 Unknown [id number] 462 Unknown [id number] 462 Social History Date Type Detail Facility Start: 10-25-2022 End: 12-30-2022 Self-employed Self-employed [facility] Work Phone: Start: 1945 Sex Assigned At Male [facility] Start: 10-25-2022 [facility] Start: 10-25-2022 Tobacco use and exposure Smokeless tobacco non-user [facility] Start: 10-25-2022 End: 12-30-2022 Alcohol intake Ex-drinker (finding) [facility] Start: 1945 Sex Assigned At Not on file [facility] Start: 10-25-2022 End: 12-30-2022 Gender identity Not on file [facility] Start: 10-15-2022 End: 12-30-2022 Exposure to SARS-CoV-2 (event) Not sure [facility] Start: 09-22-2022 Sex Male (finding) [facility] Work Phone: Clinical Notes 08-29-2022 to 06-05-2024 Telephone Encounter - Serene Ron - 06/05/2024 3:28 PM ESTTelephone Encounter - Serene Ron - 06/05/2024 3:28 PM ESTTelephone Encounter - Shana Fajardo - 05/24/2024 10:28 AM ESTAttachments Note Date & Type Note Facility 06-05-2024 Telephone encounter Note Name of Caller: So ([facility]) Contact Reason for Appointment: So called instating Pt wanted to cancel his 06/11 appt and does not want to r/s at this time. Please be advised [place] Name[place] [facility] 06-05-2024 Miscellaneous Notes Name of Caller: So ([facility]) Contact Reason for Appointment: So called instating Pt wanted to cancel his 06/11 appt and does not want to r/s at this time. Please be advised Office Name: [facility] documented in this encounter [facility] 05-24-2024 Telephone encounter Note Radha from [facility] in [place] called to reschedule the patient's 05/16/[address] Giraldo. Patient is not ambulatory and will be arriving on cot. Appt RS to 06/11/24. [facility] 05-24-2024 Miscellaneous Notes Radha from [facility] in [place] called to reschedule the patient's 05/16/[address] Giraldo. Patient is not ambulatory and will be arriving on cot. Appt RS to 06/11/24. documented in this encounter [facility] 05-03-2023 Telephone encounter Note Noted patient electing to not proceed with MRI abdomen. Two non-specific liver lesions seen on imaging at outside facility 08/2022. MRI recommended for further evaluation/characterization. Patient did not complete any of the additional lab work ordered at GI visit, either. Please send FYI to PCP. Thank you! [facility] 05-03-2023 Miscellaneous Notes Noted patient electing to [...] call back JR documented in this encounter [facility] 04-29-2023 Telephone encounter Note Please advise-MRI ordered in December [facility] 04-29-2023 Telephone encounter Note Pt did not wish to have MRI scheduled, pt brother to call back JR [facility] 12-30-2022 History of Present illness Narrative Images from the original note were not included. [facility] [address] [facility] [address] Dept: [phone] Dept Loc: [phone] Visit type: New Reason for Visit: New [...] Gruber, re: fatty liver. Patient resides in [facility]-has been living there since August 2022 [...] Normal appearance. HENT: Head: Normocephalic. Ears: Comments: [place] Eyes: General: No scleral icterus. Cardiovascular: Rate [...] 9:00 AM 12/30/22 documented in this encounter [facility] 12-30-2022 Instructions FRANCHESCA Palmer CNP - 12/30/2022 8:00 AM EDT --Please call office with any questions or concerns! [phone] --Obtain additional lab work for further evaluation of the symptoms. --Schedule MRI liver --Please see handout provided regarding additional recommendations for the symptoms including when to seek emergency care or further treatment. --Follow-up with PCP, and in GI clinic in about 3 months following the above evaluation and recommendations. The following attachments cannot be sent through Care Everywhere.Fecal Incontinence (Faroese)documented in this encounter [facility] 10-25-2022 History of Present illness Narrative Images [...] deconditioning. In wheelchair, still at rehab at [facility]. He normally lives in [place]. Has psa 5.57 Psa in 2019 9.36 [...] - PSA Total BPH with urinary obstruction Chritsos Lyons is a 77 y.o. male with Elevated psa Bph Fecal incontinence Plan: Has hx elevated psa it was 9 in 2019 but now 5.57 Observe bph for now, void well Repeat psa in 6 mo Follow up in 6 mo Follow up in about 6 months (around 04/26/2023) for psa prior. Barron Giraldo MD 10/25/22 11:38 AM documented in this encounter [facility] 09-04-2022 Note Send Summary: Discharge Summary Providers: Provider RoleProvider Name ConsultingFreyYaw Andrew PrimaryMark, Matthew Note Recipients: Brian Jean [...] Condition at Discharge: Satisfactory Disposition at Discharge: Intermediate Facility (SNF) Vital Signs: T PRBPMAPSpO2 [id number]/6695% Date/Time09/04 8: 8: 8: 8: 8:21 Range(36.2C [...] Surgical Pathology Drawn at 02-Sep-2022 14:40:00 Cytology-Non LUMP RECEIVER Drawn at 02-Sep-2022 00:00:00 Venous Full Panel Drawn at 28-Aug-2022 19:12:00 Radiology Results - Pending: None Discharge Instructions: Activity: activity as tolerated. May shower.. Nutrition/Diet: low sodium Fluid Restriction: 1.5L Labs: Lab Test(s): CBC, Comprehensive Metabolic Panel Date To Be Drawn: 09/06/2022 Fax Results To: Dr Maynard, #[phone] Rehab Services: Occupational Therapy Orders: [facility] Treat ([facility] Physical Therapy Orders: Eval and Treat ([facility]) Care Recommendation: I recommend that INPATIENT care is required at:: Skilled Follow Up Appointments: Follow-Up Appointment 01: Physician/Dept/Service: Dr. Malou Bowen - Pulmonary Scheduled Date/Time: (more content not included)... [facility] 08-29-2022 Note History of Present I llness: HPI: CHRISTOS LYONS is a 77 year old Male with a past medical history of hypertension, hyperlipidemia, anemia, alcohol use disorder, BPH, anxiety, hypothyroidism, gouty arthritis who presented to [facility] complaining of worsening dysphagia to solid [...] are negative Objective: Objective Information: T PRBPMAPSpO2 Value36.10137322/6697% Date/Time08/28 23: 23: 23: 23: 23:09 Range(36.2C [...] 2 Hours PRN (more content not included)... [facility] Evaluation note [facility] Work Phone: Evaluation note Diagnosis Elevated PSA- Primary Elevated prostate specific antigen (PSA) BPH with urinary obstruction Hypertrophy of prostate with urinary obstruction and other lower urinary tract symptoms (LUTS) [facility] Elevated LFTs- Primary Other abnormal blood chemistry Abnormal CT of liver History of alcohol abuse Nondependent alcohol abuse, in remission Incontinence of feces, unspecified fecal incontinence type [facility]ative)No reason for referral information [facility] Work Phone: Summary Purpose Family History No Family History [...] and Reason for Visit Chief Complaint LABWORK SKILLED NURSING LABWORK LABWORK LAB WORK LABWORK Chief Complaint LABWORK SKILLED NURSING LABWORK LABWORK LAB WORK LABWORK SKILLED NURSING LABWORK Chief Complaint LABWORK SKILLED NURSING LABWORK SKILLED NURSING LAB WORK SKILLED NURSING LAB WORK SKILLED NURSING LAB WORK Chief Complaint SKILLED NURSING LAB WOR K SKILLED NURSING LAB WORK SKILLED NURSING LAB WORK SKILLED NURSING LABWORK LABWORK Chief Complaint LABWORK LABWORK Chief Complaint LABWORK LABWORK LABWORK Chief Complaint Admit Date SKILLED NURSING LAB WORK October 26, 2024 5: 00am SKILLED NURSING LAB WORK November 06, 2024 4:0 0am Chief Complaint Admit Date SKILLED NURSING LAB WORK November 06, 2024 4:0 0am Reason for Referral Specialty Diagnoses / Procedures Referred By Contphi t Referred To Contact Radiology Diagnoses Elevated LFTs Abnormal CT of liver Procedures MR abdomen w and wo contrast Kalyn Quinonez, FRANCHESCA - ASSET RECOVERY SPECIALIST [address] [place], [place] [id number] Referral ID Status Reason Start Date Expiration Date V isits Requested Visits Authorized [id number] Pending Review 12/30/2022 06/28/2023 1 1 Additional Source Comments (unrecognized sect ion and content) No Status Records FoundNo Status Records FoundNo Status Records FoundNo Status Records FoundNo Status Records Found INFORMATION SOURCE (unrecogn ized section and content) DATE CREATED AUTHOR 02/07/2021 [employer] DATE CREATED AUTHOR AUTHOR'S ORGANIZ ATION 09/07/2022 [facility] DATE CREATED AUTHOR AUTHOR'S ORGANIZ ATION 09/08/2022 [facility] DATE CREATED AUTHOR AUTHOR'S ORGANIZ ATION 06/07/2024 [facility] DATE CREATED AUTHOR AUTHOR'S ORGANIZ ATION [facility]/10/2025 [facility] Care Teams (unrecognized sec tion and content) Team Status: Inactive Member Role Status Dates Henry REID Attending Provider Active Team Status: Inactive Member Role Status Dates Henry REID Attending Provider, Referring Provid er Active Team Status: Active Member Role Status Dates Henry REID Attending Provider Active Team Status: Active Member Role Status Dates Henry REID Attending Provider, Referring Provid er Active Garbage Truck Dispatcher Relationship Specialty Start Date End Date Henry Gruber [address] [place] [address] [address] [place] [address] PCP - General Family Medicine 09/22/22 Barron Giraldo MD [address] [place] [address] Surgeon Urology 10/25/22 Garbage Truck Dispatcher Relationship Specialty Start Date End Date Henry Gruber [address] [place] [address] [address] [place] [address] PCP - General Family Medicine 09/22/22 [place] [address] Surgeon Urology 10/25/22 Garbage Truck Dispatcher Relationship Specialty Start Date End Date Henry Gruber [address] [place] [address] [address] [place] [address] PCP - General Family Medicine 09/22/22 [place] [address] Surgeon Urology 10/25/22 Garbage Truck Dispatcher Relationship Specialty Start Date End Date Henry Gruber MD [address] [place] [address] [address] [place] [address] PCP - General Family Medicine 09/22/22 Barron Giraldo MD [address] [place] [address] Surgeon Urology 10/25/22 Garbage Truck Dispatcher Relationship Specialty Start Date End Date Henry Gruber MD [address] [place] [address] PCP - General Family Medicine 09/22/22 Barron Giraldo MD [address] [place] [address] Surgeon Urology 10/25/22 Team Status: Inactive Member Role/Relationship Status Dates Henry REID Attending Provider Active Star t: October 26, 2024 End: October 26, 2024 Team Status: Active Member Role/Relationship Status Dates Henry REID Attending Provider Active Star t: November 06, 2024 Henry REID Referring Provider Active Star t: November 06, 2024 Team Status: Active Member Role/Relationship Status Dates Henry REID Attending Provider Active Star t: November 29, 2024 Team Status: Inactive Member Role/Relationship Status Dates Henry REID Attending Provider Active Star t: November 06, 2024 End: November 06, 2024 Henry REID Referring Provider Active Star t: November 06, 2024 End: November 06, 2024 Goals (unrecognized section and content) Goals may [...] fatty liver Procedures Consult Henry Gruber [address] [place] [address] [facility] [address] [place] [address] Referral ID Status Reason Start Date Expiration Date V isits Requested Visits Authorized [id number] Pending Review 10/01/2022 10/01/2023 1 1 Reason [...] BE BASED ON THE PRIMARY CLINICAL RECORDS. [facility] [employer] provides no warranty or guarantee of the accuracy or completeness of information in this document.
[2025-05-08 09:03] LABS: Hematocrit 39.6 % (40-54); Hemoglobin 13.0 g/dL (13.0-16.5); Mean Corp Hgb Conc 32.8 g/dL (32-36); Mean Corpuscular Volume 86.3 fL (80-94); Mean Platelet Vol. 10.9 fl (6.2-12.0); Platelet Count 349 K/mm3 (150-450); RBC Distribution Width CV 15.7 % (11.6-14.6); RBC Distribution Width SD 49.0 fl (35.1-43.9); Red Blood Count 4.59 M/mm3 (4.6-6.2); White Blood Count 11.8 K/mm3 (4.4-11.0)
[2025-05-08 09:25] LABS: AST(SGOT) 19 U/L (<=37); Alanine Aminotransfer ALT/SGPT 15 U/L (<=46); Albumin, Serum 3.7 g/dL (3.4-4.8); Alkaline Phosphatase 142 U/L (40-129); Anion Gap 10 (7-18); BUN 8 mg/dL (4-19); BUN/Creat Ratio 17.4 RATIO (10-20); Calcium,Total 9.1 mg/dL (7.6-11.0); Carbon Dioxide 25.9 mmol/L (20.0-29.0); Chloride 103 mmol/L (96-106); Cholesterol 114 mg/dL (<=200); Globulin 3.2 g/dL (2.2-4.2); Glucose 116 mg/dL (70-99); Low Density Lipoprotein Calc. 53 mg/dL; Potassium 3.9 mmol/L (3.5-5.1); T3 Total - Triiodothyronine 0.83 ng/mL (0.80-2.00); T4 Total, Thyroxin 7.9 ug/dL (4.5-12.1); Triglycerides 140 mg/dL; Uric Acid 4.1 mg/dL (3.5-7.2); Very Low Density Lipoprotein 28 mg/dL (5-40); Vitamin D,25 Hydroxy 35.7 ng/mL (30-100); cholesterol:hdl ratio screen 3.10
== END ==
LOC: OLS.ACW200 05:00
PROVIDERS: Visit Provider Family Medicine
DX: C34.90 Malignant neoplasm of unspecified part of unspecified bronchus or lung (principal); M10.9 Gout, unspecified
CPT/HCPCS: 36415; 80053; 80061; 82306; 83036; 84436; 84443; 84480; 84550; 85027